=== PATIENT | female | born 1940 | race African-American/Black ===

== ENCOUNTER 2017-12-22 09:25 | Inpatient (IN) | payer OTHER ==
[2017-12-22 10:03] LABS: Absolute Lymphocytes (CBC) 1.9 K/uL (0.7-4.9); Absolute Monocytes 0.7 K/uL (0.1-1.3); Absolute Neutrophil 8.5 K/uL (1.8-8.0); Basophils % 0.4 % (0-1.3); Eosinophils % 0.1 % (0-4.4); Hematocrit 35.8 % (36.0-45.0); Lymphocytes % 16.7 % (15.3-44.8); MCH 32.7 pg (27.0-35.0); MCV 106.3 fL (80-100); MPV 9.7 fL (7.6-11.3); Monocytes % 6.4 % (3.3-12.3); RBC Red Blood Cell Count 3.36 M/uL (3.86-4.86)
[2017-12-22 10:06] LABS: Protime INR 1.1
[2017-12-22] MEDS ORDERED: ONDANSETRON 4 MG/2 ML VIAL ONE (10:14)
[2017-12-22] MEDS ORDERED: D5 0.45 NS 1,000 ML IV ONE (10:14)
--- NOTE | 2017-12-22 10:22 | RAD REPORT ---
EXAM DESCRIPTION: [place] Single View12/22/2017 10:11 am CLINICAL HISTORY: Chest pain COMPARISON: February 2017 FINDINGS: The lungs appear clear of acute infiltrate. The heart is mildly enlarged IMPRESSION: No acute abnormalities displayed
[2017-12-22 10:27] LABS: Potassium 4.2 mEq/L (3.6-5.0)
[2017-12-22 10:30] LABS: Albumin 2.6 g/dL (3.2-5.5); Bilirubin Direct 0.2 mg/dL (0-0.2); Bilirubin Total 0.5 mg/dL (0.3-1.2); Protein, Total 5.8 g/dL (6.0-8.3)
[2017-12-22 10:35] LABS: Magnesium 1.2 mg/dL (1.8-2.5)
[2017-12-22 10:42] LABS: Anisocytosis 1+; Blood Morphology Comment NOTED (NOT SEEN); Macrocytosis 1+; Platelet Estimate ADEQ; Urine White Blood Cell Casts OK
--- NOTE | 2017-12-22 10:42 | RAD REPORT ---
EXAM DESCRIPTION: CT - Head Brain Wo Cont - 12/22/2017 10:35 am CLINICAL HISTORY: Altered consciousness, hypoglycemia COMPARISON: 06/23/2010 TECHNIQUE: All CT scans are performed using dose optimization technique as appropriate and may inclu de automated exposure control or mA/KV adjustment according to patient size. FINDINGS: No intracranial hemorrhage, hydrocephalus or extra-axial fluid collection.Prominent brain atrophy is seen at greatest in the frontal lobes.No areas of brain edema or evidence of midline shift . The paranasal sinuses and mastoids are clear. The calvarium is intact. IMPRESSION: No acute intracranial abnormality. Prominent frontal lobe atrophy.
--- NOTE | 2017-12-22 10:55 | ER ---
Nurse's Notes [facility] Name: Yanelis Hodge Age: 77 yrs Sex: Female : 1940 Arrival Date: 12/22/2017 Time: 09:36 Bed 2 Private MD: Diagnosis: Weakness;Altered mental status, unspecified;Hypoglycemia, unspecified;Hypomagnesemia;Metabolic acidemia, unspecified Presentation: 12/22 09:18 Presenting complaint: EMS states: family unable to wake up pt. Pt has had this episode sv before where she had low BS. EMS got BS and it said low, 1 amp of D50 given, BS-170 after. BS at 0917 was 76 and not responding, 1 amp of D50 given. Transition of care: patient was not received from another setting of care. Onset of symptoms was December 22, 2017. Care prior to arrival: IV initiated. 20 GA, in the left hand. 09:18 Method Of Arrival: EMS: [facility] sv 09:18 Acuity: SAM 2 sv 09:30 Presenting complaint: Child states: that she did not eat yesterday. Daughter stated sv that sometimes she gets like that and doesn't eat. Triage Assessment: 09:20 General: Appears in no apparent distress. uncomfortable, obese, Behavior is sv cooperative. Pain: Denies pain. EENT: No signs and/or symptoms were reported regarding the EENT system. Neuro: Level of Consciousness is obeys commands, lethargic, Oriented to person, Moves all extremities. Cardiovascular: Heart tones S1 S2 present Patient's skin is warm and dry. Pulses are 3+ in right radial artery and left radial artery Rhythm is sinus tachycardia. Respiratory: Airway is patent Respiratory effort is even, unlabored, Respiratory pattern is regular, symmetrical. GI: Abdomen is obese, Abd is soft and non tender X 4 quads. Derm: Skin is normal. Musculoskeletal: Range of motion: intact in all extremities. Historical: - Allergies: 10: No Known Allergies; sv - Home Meds: 10:01 metoprolol tartrate 50 mg Oral tab 1 tab 2 times per day [Active]; gabapentin 100 mg sv oral cap twice a day [Active]; Norvasc 2.5 mg Oral tab 1 tab twice daily [Active]; risedronate 35 mg oral tab 1 tab once wkly [Active]; prednisone 10 mg Oral tab once daily [Active]; Prozac 20 mg Oral cap 1 cap once daily [Active]; Prilosec 20 mg Oral cpDR 1 cap once daily [Active]; Spiriva with HandiHaler 18 mcg inhalation CpDv 1 cap once daily [Active]; - PMHx: 10:01 Hypertension; Rheumatoid Arthritis; sv - Immunization history:: Adult Immunizations up to date. - Social history:: Smoking status: Patient/guardian denies using tobacco. Screenin:20 Abuse screen: Denies threats or abuse. Denies injuries from another. Nutritional sv screening: No deficits noted. Tuberculosis screening: No symptoms or risk factors identified. Fall Risk None identified. Assessment: :18 Reassessment: See triage assessment. sv 10:18 Reassessment: Patient appears in no apparent distress at this time. Patient and/or sv family updated on plan of care and expected duration. Pain level reassessed. Patient is alert, oriented x 3, equal unlabored respirations, skin warm/dry/pink. 11:37 Reassessment: Patient appears in no apparent distress at this time. Patient and/or sv family updated on plan of care and expected duration. Pain level reassessed. Patient is alert, oriented x 3, equal unlabored respirations, skin warm/dry/pink. 12:55 Reassessment: Patient appears in no apparent distress at this time. Patient and/or sv family updated on plan of care and expected duration. Pain level reassessed. Patient is alert, oriented x 3, equal unlabored respirations, skin warm/dry/pink. 13:23 Reassessment: Nurse to call back for report. sv 13:24 Reassessment: Patient appears in no apparent distress at this time. Patient and/or sv family updated on plan of care and expected duration. Pain level reassessed. Patient is alert, oriented x 3, equal unlabored respirations, skin warm/dry/pink. Vital Signs: 09:18 BP 128 / 84; Pulse 101; Resp 18; Temp 96; Pulse Ox 100% ; Pain 0/10; sv 10:20 BP 148 / 65; Pulse 104; Resp 20; Pulse Ox 100% on R/A; sv 12:54 BP 150 / 82; Pulse 105 MON; Resp 17; Pulse Ox 100% on R/A; sv 12:54 Sinus tachycardia sv ED Course: :18 Maintain EMS IV. Dressing intact. Site clean \T\ dry. Gauge \T\ site: 20G L hand. sv 09:20 Patient has correct armband on for positive identification. Bed in low position. Call sv light in reach. Side rails up X2. radio antenna installer on. Pulse ox on. NIBP on. Door closed. Warm blanket given. Head of bed elevated. 09:30 Arm band placed on right wrist. sv 09:36 Patient arrived in ED. sv 09:40 Initial lab(s) drawn, by me, sent to lab. Inserted saline lock: 20 gauge in right sv forearm, using aseptic technique. Blood collected. Flushed right forearm with 5 ml normal saline. 09:43 Sherwin Miller MD is Attending Physician. óscar 09:44 Christel Lyon, MARY GRACE is Primary Nurse. sv 09:47 Triage completed. sv 09:52 EKG done, by regulatory and compliance technician. reviewed by Sherwin Miller MD. at1 09:55 X-ray completed. Portable x-ray completed in exam room. Patient tolerated procedure jb2 well. 09:56 XRAY Chest (1 view) In Process Unspecified. EDMS 10:12 CBC Smear Scan Sent. sv 10:18 Awaiting ED provider evaluation. sv 10:29 CT completed. Patient tolerated procedure well. Patient moved to CT via stretcher. jg1 10:35 CT Head Brain wo Cont In Process Unspecified. EDMS 10:53 Sg Levy MD is Hospitalizing Provider. óscar 11:21 No provider procedures requiring assistance completed. Chiagn cath inserted, using tw2 sterile technique, 16 Fr., by ma, balloon inflated, to gravity drainage, urine specimen collected. returned cloudy urine. Patient tolerated well. 12:24 Urine collected: Chiang catheter specimen, clear. mh5 12:56 Urine Dipstick--Ancillary (enter results) Sent. sv 13:10 Patient admitted, IV remains in place. intact. sv Administered Medications: Discontinued: D5-1/2 NS 1000 ml IV at 100 ml/hr continuous 09:55 Drug: D5-1/2 NS 1000 ml Route: IV; Rate: 100 ml/hr; Site: right forearm; sv 12:55 Follow up: Response: No adverse reaction; IV Status: Order to discontinue infusion sv 09:55 Drug: Zofran 4 mg Route: IVP; Site: right forearm; sv 10:23 Follow up: Response: No adverse reaction sv 11:37 Drug: Magnesium Sulfate 1 grams Route: IVPB; Infused Over: 1 hrs; Site: right forearm; sv 12:35 Follow up: Response: No adverse reaction; IV Status: Completed infusion; IV Intake: sv 100ml 11:37 Drug: NS 0.9% 500 ml Route: IV; Rate: bolus; Site: right forearm; sv 12:15 Follow up: Response: No adverse reaction; IV Status: Completed infusion; IV Intake: sv 500ml 12:08 CANCELLED (Duplicate Order): Rocephin - (cefTRIAXone) 1 grams IVPB once over 30 mins; sv (mix in 50 mL NS) 12:55 Drug: D5W 1000 ml, Sodium Bicarbonate 150 mEq Route: IV; Rate: 75 ml/hr; Site: right sv forearm; 14:11 Follow up: Response: No adverse reaction; IV Status: Infusion continued upon admission sv 12:55 Drug: Rocephin 1 grams Route: IV; Rate: calculated rate; Site: right forearm; sv 13:00 Follow up: Response: No adverse reaction; IV Status: Completed infusion; IV Intake: 10mlsv 12:55 Drug: D50W 50 ml Route: IVP; Site: right forearm; sv 13:10 Follow up: Response: No adverse reaction; Blood sugar is elevated sv Point of Care Testing: Blood Glucose: 09:26 Blood Glucose: 149 mg/dL; sv 10:08 Blood Glucose: 119 mg/dL; tw2 12:52 Blood Glucose: 44 mg/dL; sv 13:10 Blood Glucose: 150 mg/dL; sv Ranges: Intake: 12:15 IV: 500ml; Total: 500ml. sv 12:35 IV: 100ml; Total: 600ml. sv 13:00 IV: 10ml; Total: 610ml. sv Outcome: 10:54 Decision to Hospitalize by Provider. óscar 13:32 Admitted to Tele accompanied by tech, via stretcher, room 232, with chart, Report sv called to Guera BRODY 13:32 Condition: stable 13:32 Instructed on the need for admit. 13:51 Patient left the ED. sv Signatures: Dispatcher [employer] Christel Styles RN RN sv Anderson, Corey, MD MD cha Buechter, Jesse jb2 Garcia, Jessica jg1 gonzales, Marisol, apn EKG Tat1 Jennifer Strong, RN RN tw2 Melissa Matute [facility] Corrections: (The following items were deleted from the chart) 10:18 Reassessment: See triage assessment. [facility] 11:22 PMHx: DM; tw2
--- NOTE | 2017-12-22 10:55 | EDPHYS ---
Physician Documentation [facility] Name: Yanelis Hodge Age: 77 yrs Sex: Female : 1940 Arrival Date: 12/22/2017 Time: 09:36 Bed 2 Private MD: ED Physician Sherwin Miller HPI: 12/22 10:51 This 77 yrs old Black Female presents to ER via EMS with complaints of Low Blood Sugar. óscar 10:51 The patient or guardian reports hypoglycemia. Onset: The symptoms/episode óscar began/occurred just prior to arrival, this morning. Associated signs and symptoms: Pertinent positives: nausea. Current symptoms: In the emergency department the patient's symptoms are unchanged from the initial presentation. The patient has not experienced similar symptoms in the past. Historical: - Allergies: 10: No Known Allergies; sv - Home Meds: 10:01 metoprolol tartrate 50 mg Oral tab 1 tab 2 times per day [Active]; gabapentin 100 mg sv oral cap twice a day [Active]; Norvasc 2.5 mg Oral tab 1 tab twice daily [Active]; risedronate 35 mg oral tab 1 tab once wkly [Active]; prednisone 10 mg Oral tab once daily [Active]; Prozac 20 mg Oral cap 1 cap once daily [Active]; Prilosec 20 mg Oral cpDR 1 cap once daily [Active]; Spiriva with HandiHaler 18 mcg inhalation CpDv 1 cap once daily [Active]; - PMHx: 10:01 Hypertension; Rheumatoid Arthritis; sv - Immunization history:: Adult Immunizations up to date. - Social history:: Smoking status: Patient/guardian denies using tobacco. ROS: 10:52 Constitutional: Negative for fever, chills, and weight loss, Eyes: Negative for injury, óscar pain, redness, and discharge, ENT: Negative for injury, pain, and discharge, Neck: Negative for injury, pain, and swelling, Cardiovascular: Negative for chest pain, palpitations, and edema, Respiratory: Negative for shortness of breath, cough, wheezing, and pleuritic chest pain, Abdomen/GI: Negative for abdominal pain, nausea, vomiting, diarrhea, and constipation, Back: Negative for injury and pain, : Negative for injury, bleeding, discharge, and swelling, MS/Extremity: Negative for injury and deformity, Skin: Negative for injury, rash, and discoloration, Psych: Negative for depression, anxiety, suicide ideation, homicidal ideation, and hallucinations, Allergy/Immunology: Negative for hives, rash, and allergies, Endocrine: Negative for neck swelling, polydipsia, polyuria, polyphagia, and marked weight changes, Hematologic/Lymphatic: Negative for swollen nodes, abnormal bleeding, and unusual bruising. 10:52 Neuro: Positive for altered mental status, weakness. Exam: 10:52 Constitutional: This is a well developed, well nourished patient who is awake, alert, óscar and in no acute distress. Head/Face: Normocephalic, atraumatic. Eyes: Pupils equal round and reactive to light, extra-ocular motions intact. Lids and lashes normal. Conjunctiva and sclera are non-icteric and not injected. Cornea within normal limits. Periorbital areas with no swelling, redness, or edema. ENT: Nares patent. No nasal discharge, no septal abnormalities noted. Tympanic membranes are normal and external auditory canals are clear. Oropharynx with no redness, swelling, or masses, exudates, or evidence of obstruction, uvula midline. Mucous membranes moist. Neck: Trachea midline, no thyromegaly or masses palpated, and no cervical lymphadenopathy. Supple, full range of motion without nuchal rigidity, or vertebral point tenderness. No Meningismus. Chest/axilla: Normal chest wall appearance and motion. Nontender with no deformity. No lesions are appreciated. Cardiovascular: Regular rate and rhythm with a normal S1 and S2. No gallops, murmurs, or rubs. Normal PMI, no JVD. No pulse deficits. Respiratory: Lungs have equal breath sounds bilaterally, clear to auscultation and percussion. No rales, rhonchi or wheezes noted. No increased work of breathing, no retractions or nasal flaring. Abdomen/GI: Soft, non-tender, with normal bowel sounds. No distension or tympany. No guarding or rebound. No evidence of tenderness throughout. Back: No spinal tenderness. No costovertebral tenderness. Full range of motion. Female : Normal external genitalia. Skin: Warm, dry with normal turgor. Normal color with no rashes, no lesions, and no evidence of cellulitis. MS/ Extremity: Pulses equal, no cyanosis. Neurovascular intact. Full, normal range of motion. Psych: Awake, alert, with orientation to person, place and time. Behavior, mood, and affect are within normal limits. 10:52 Neuro: Orientation: to person, place, time, Not oriented to situation, Mentation: slow to respond, Memory: immediate memory is impaired, remote memory is intact. recent memory is impaired, Cranial nerves: no acute changes, Cerebellar function: unable to test, Motor: moves all fours, Sensation: no obvious gross deficits, appropriate no acute changes, Gait: not tested. Babinski testing is normal. Vital Signs: 09:18 BP 128 / 84; Pulse 101; Resp 18; Temp 96; Pulse Ox 100% ; Pain 0/10; sv 10:20 BP 148 / 65; Pulse 104; Resp 20; Pulse Ox 100% on R/A; sv 12:54 BP 150 / 82; Pulse 105 MON; Resp 17; Pulse Ox 100% on R/A; sv 12:54 Sinus tachycardia sv MDM: 09:43 Patient medically screened. [facility] 10:59 Data reviewed: vital signs, nurses notes, lab test result(s), EKG, radiologic studies, [facility] CT scan, plain films. 12/22 09:44 Order name: Basic Metabolic Panel; Complete Time: 10:48 sv 12/22 09:44 Order name: BNP; Complete Time: 10:48 sv 12/22 09:44 Order name: CBC with Diff; Complete Time: 10:48 sv 12/22 09:44 Order name: Ckmb; Complete Time: 10:48 sv 12/22 09:44 Order name: CPK; Complete Time: 10:48 sv 12/22 09:44 Order name: LFT's; Complete Time: 10:48 sv 12/22 09:44 Order name: Magnesium; Complete Time: 10:48 sv 12/22 09:44 Order name: PT-INR; Complete Time: 10:48 sv 12/22 09:44 Order name: Ptt, Activated; Complete Time: 10:48 sv 12/22 09:44 Order name: Troponin (emerg Dept Use Only); Complete Time: 10:48 sv 12/22 09:45 Order name: Lipase; Complete Time: 10:48 [facility] 12/22 10:11 Order name: glucometer results - FOR PT WITH NO ID sv 12/22 10:11 Order name: CBC Smear Scan; Complete Time: 10:48 EDMS 03/06 10:48 Order name: ABG; Complete Time: 11:52 óscar 12/22 10:59 Order name: Basic Metabolic Panel EDMS 12/22 10:59 Order name: Basic Metabolic Panel EDMS 12/22 10:59 Order name: Troponin I EDMS 12/22 10:59 Order name: Troponin I EDMS 12/22 10:59 Order name: Troponin I EDMS 12/22 11:02 Order name: CBC with Automated Diff EDMS 12/22 09:44 Order name: XRAY Chest (1 view); Complete Time: 10:48 óscar 12/22 09:44 Order name: EKG; Complete Time: 09:45 óscar 12/22 10:25 Order name: CT Head Brain wo Cont; Complete Time: 10:48 sv 12/22 11:02 Order name: Regular EDMS 12/22 11:02 Order name: CBC with Automated Diff EDMS 12/22 11:02 Order name: Chest Single View EDMS 12/22 11:02 Order name: Chest Single View EDMS 12/22 11:02 Order name: EKG Electrocardiogram EDMS 12/22 11:02 Order name: EKG Electrocardiogram EDMS 12/22 11:02 Order name: EKG Electrocardiogram EDMS 12/22 11:02 Order name: EKG Electrocardiogram EDMS 12/22 11:59 Order name: Blood Culture Adult (2) [facility] 12/22 12:23 Order name: Urine Dipstick--Ancillary (enter results) 12/22 12:37 Order name: Urine Dipstick-Ancillary EDMS 12/22 12:53 Order name: Glucose, Ancillary Testing EDLA 12/22 12:53 Order name: Glucose, Ancillary Testing EDMS 12/22 09:44 Order name: Cardiac monitoring; Complete Time: 10:14 óscar 12/22 09:44 Order name: EKG - Nurse/Tech; Complete Time: 10:14 óscar 12/22 09:44 Order name: IV Saline Lock; Complete Time: 10:15 óscar 12/22 09:44 Order name: Labs collected and sent; Complete Time: 10:15 óscar 12/22 09:44 Order name: O2 Per Protocol; Complete Time: 10:15 óscar 12/22 09:44 Order name: O2 Sat Monitoring; Complete Time: 10:15 óscar 12/22 09:44 Order name: Urine Dipstick-Ancillary (obtain specimen); Complete Time: 10:15 óscar 12/22 10:49 Order name: Андрей; Complete Time: 11:20 [facility] Administered Medications: Discontinued: D5-1/2 NS 1000 ml IV at 100 ml/hr continuous 09:55 Drug: D5-1/2 NS 1000 ml Route: IV; Rate: 100 ml/hr; Site: right forearm; sv 12:55 Follow up: Response: No adverse reaction; IV Status: Order to discontinue infusion sv 09:55 Drug: Zofran 4 mg Route: IVP; Site: right forearm; sv 10:23 Follow up: Response: No adverse reaction sv 11:37 Drug: Magnesium Sulfate 1 grams Route: IVPB; Infused Over: 1 hrs; Site: right forearm; sv 12:35 Follow up: Response: No adverse reaction; IV Status: Completed infusion; IV Intake: sv 100ml 11:37 Drug: NS 0.9% 500 ml Route: IV; Rate: bolus; Site: right forearm; sv 12:15 Follow up: Response: No adverse reaction; IV Status: Completed infusion; IV Intake: sv 500ml 12:08 CANCELLED (Duplicate Order): Rocephin - (cefTRIAXone) 1 grams IVPB once over 30 mins; sv (mix in 50 mL NS) 12:55 Drug: D5W 1000 ml, Sodium Bicarbonate 150 mEq Route: IV; Rate: 75 ml/hr; Site: right sv forearm; 14:11 Follow up: Response: No adverse reaction; IV Status: Infusion continued upon admission sv 12:55 Drug: Rocephin 1 grams Route: IV; Rate: calculated rate; Site: right forearm; sv 13:00 Follow up: Response: No adverse reaction; IV Status: Completed infusion; IV Intake: 10mlsv 12:55 Drug: D50W 50 ml Route: IVP; Site: right forearm; sv 13:10 Follow up: Response: No adverse reaction; Blood sugar is elevated sv Point of Care Testing: Blood Glucose: 09:26 Blood Glucose: 149 mg/dL; sv 10:08 Blood Glucose: 119 mg/dL; tw2 12:52 Blood Glucose: 44 mg/dL; sv 13:10 Blood Glucose: 150 mg/dL; sv Ranges: Critical Glucose Levels:Adult <50 mg/dl or >400 mg/dl <40 mg/dl or >180 mg/dl Disposition: 12/22/17 10:54 Hospitalization ordered by Sg Levy for Inpatient Admission. Preliminary diagnosis are Weakness, Altered mental status, unspecified, Hypoglycemia, unspecified, Hypomagnesemia, Metabolic acidemia, unspecified. - Bed requested for Telemetry/MedSurg (Inpatient). - Status is Inpatient Admission. sv - Condition is Fair. - Problem is new. - Symptoms have improved. UTI on Admission? No Signatures: Dispatcher [employer] EDLA Christel Lyon RN RN sv Woody, Diana, RN RN dw Anderson, Corey, MD MD cha Wise, Tara, RN RN tw2 Corrections: (The following items were deleted from the chart) 09:47 09:45 BASIC METABOLIC PANEL+C.LAB.BRZ ordered. EDLA EDMS 09:47 09:45 BNP+C.LAB.BRZ ordered. EDLA EDMS 09:47 09:45 CBC+H.LAB.BRZ ordered. EDLA EDMS 09:47 09:45 CKMB+C.LAB.BRZ ordered. EDLA EDMS 09:47 09:45 CREATINE PHOSPHOKINASE+C.LAB.BRZ ordered. EDLA EDMS 09:47 09:45 HEPATIC FUNCTION+C.LAB.BRZ ordered. EDLA EDMS 09:47 09:45 MAGNESIUM+C.LAB.BRZ ordered. EDLA EDMS 09:47 09:45 PROTIME (+INR)+COAG.LAB.BRZ ordered. EDLA EDMS 09:47 09:45 PTT, ACTIVATED+COAG.LAB.BRZ ordered. EDLA EDMS 09:47 09:45 TROPONIN (EMERG DEPT USE ONLY)+C.LAB.BRZ ordered. EDLA EDMS 09:56 09:45 Chest Single View+RAD.RAD.BRZ ordered. EDLA EDMS 10:12 09:44 Cardiac monitoring ordered. sv sv 10:12 09:44 Urine Dipstick-Ancillary ordered. sv sv 10:13 09:44 Labs collected and sent ordered. sv sv 10:13 09:44 Oxygen Per Protocol ordered. sv sv 10:13 09:44 O2 Sat Monitoring ordered. sv sv 10:14 09:44 EKG - Nurse/Tech ordered. sv sv 10:14 09:44 IV Saline Lock ordered. sv sv 12:08 11:59 Rocephin - (cefTRIAXone) 1 grams IVPB once over 30 mins; (mix in 50 mL NS) sv ordered. [facility] 13:28 11:22 PMHx: DM; tw2 sv
[2017-12-22] MEDS ORDERED: ONDANSETRON 4 MG/2 ML VIAL IV PRN (10:56)
[2017-12-22] MEDS ORDERED: ACETAMINOPHEN 500 MG TAB PO PRN (10:56)
[2017-12-22] MEDS ORDERED: D5 0.45 NS 1,000 ML IV SCH (11:00)
[2017-12-22] MEDS ORDERED: NA CHLORIDE 0.9% 500 ML ONE (11:35)
[2017-12-22] MEDS ORDERED: MAGNESIUM SULFATE 1 gm IVPB 1 GM/100 ML BAG IV ONE (11:35)
[2017-12-22 11:48] LABS: Arterial Blood Carboxyhemoglob 0.5 % (0-1.5); Blood Gas Oxyhemoglobin 90.7 % (94-97); Blood O2 Saturation 91.6 % (92-98.5)
[2017-12-22] MEDS ORDERED: CEFTRIAXONE/SWI 1gm 1 GM/10 ML SYR ONE (12:29)
[2017-12-22] MEDS: D5W 1,000 ML with NA BICARB 8.4% 150 MEQ IV SCH ×2 (12:30)
[2017-12-22 12:36] LABS: Urine Blood NEGATIVE (NEG); Urine Glucose NEGATIVE (NEG); Urine Protein NEGATIVE (NEG); Urine pH 5.5 (5.0-7.0)
[2017-12-22] MEDS ORDERED: D50W 25 GM/50 ML SYRINGE IV ONE (13:09)
--- NOTE | 2017-12-22 13:51 | EKG ---
Test Date: 2017-12-22 Test Time: 09:38:38 Computer Service Technician: ED MEASUREMENT RESULTS: Intervals: Rate: 99 IL: 176 QRSD: 74 QT: 380 QTc: 487 [place]: P: 69 IL: 176 QRS: 14 T: 31 INTERPRETIVE STATEMENTS: Normal sinus rhythm Normal ECG Compared to ECG 03/06/2017 06:34:37 Left ventricular hypertrophy no longer present Electronically Signed On 12-22-17 13:50:01 MASKING MACHINE FEEDER by Rishabh Vasquez
[2017-12-22] MEDS ORDERED: D5W 1,000 ML with NA BICARB 8.4% 150 MEQ IV SCH ×2 (17:00)
[2017-12-22 18:23] LABS: Magnesium 1.3 mg/dL (1.8-2.5)
[2017-12-22] MEDS ORDERED: Magnesium Sulfate 2gm IVPB 2 G/50 ML BAG IV ONE (19:00)
[2017-12-22 19:39] LABS: UR CREAT 55.2 mg/dL; UR POTASSIUM 12.3 mEq/L (25-120)
[2017-12-22 20:15] VITALS: BMI 38.4
--- NOTE | 2017-12-22 20:44 | RAD REPORT ---
EXAM DESCRIPTION: US - Renal Ultrasound-Complete - 12/22/2017 8:33 pm CLINICAL HISTORY: Metabolic acidosis COMPARISON: 06/11/2012 FINDINGS: Both kidneys are normal in size, shape and echotexture. The right kidney measures 9.2 x 3.8 x 3.4 cm. No hydronephrosis, focal mass or perinephric fluid. The left kidney measures 9.5 x 3.8 x 3.7 cm. No hydronephrosis, focal mass or perinephric fluid. IMPRESSION: Unremarkable renal sonogram.
[2017-12-22] MEDS: MAGNESIUM OXIDE 400 MG TAB PO SCH (21:29)
[2017-12-22] MEDS ORDERED: GABAPENTIN 100 MG CAP PO PRN (22:12)
[2017-12-22] MEDS ORDERED: METOPROLOL XL 50 MG TAB PO ONE (22:14)
[2017-12-23] MEDS: D5W 1,000 ML with NA BICARB 8.4% 150 MEQ IV SCH ×2 (00:57)
[2017-12-23] MEDS: PANTOPRAZOLE 40MG TABLET PO SCH (05:04)
--- NOTE | 2017-12-23 05:25 | HP ---
Date of Admission: 12/22/2017 Chief Complaint: Confusion and low blood sugar. History Of Present Illness: This is a 77-year-old female patient, who lives at home with her olvin elias, was brought into emergency room with confusion problem. The patient's blood sugar was low as repo rted by EMS and this was corrected. After she arrived to the emergency room, she was evaluated and a dmitted to hospital. As I was told from ER, her blood sugar by EMS was around 54 or so. When I saw her this evening, she denied any complaints. She says yesterday she had diarrhea about 4 or 5 times and once today. Denies any vomiting. No fever, chills. No abdominal pain. Allergies: NO KNOWN ALLERGIES. Review of Systems: Musculoskeletal: Has arthritis. GI: As mentioned above for diarrhea. SIX PACK PACKER: As mentioned above. All other systems reviewed and negative. Social History: Negative for smoking and alcohol use. Family History: Sister of brain tumor. Mother of breast cancer. Mother also had diabetes and father of jaundice. Past Surgical History: Cholecystectomy, partial amputation of right hand finger. Past Medical History: Hypertension, osteoarthritis, rheumatoid arthritis, hyperlipidemia, anemia, ga stroesophageal reflux disease, osteoarthritis at multiple sites, depression, fatigue, and pulmonary h ypertension. Medications: The patient takes amlodipine 2.5 mg 2 times a day, Caltrate plus D 1 tablet twice a day , fluoxetine 20 mg daily, gabapentin 100 mg twice a day, hemocyte Plus 1 tablet daily, omeprazole 20 mg daily, metoprolol 50 mg 2 times a day, prednisone 10 mg p.o. daily, ProAir inhaler p.r.n., risedro janet 35 mg p.o. once a week, and vitamin D3 2000 units daily. Physical Examination: Vital Signs: When she first came in, blood pressure 148/65, pulse 104, respiratory rate 20, temperat ure 98.9, oxygen saturation 100%. Height 5 feet 3 inches. Weight 216 pounds. General: Awake, alert, oriented, not in distress. HEENT: Head atraumatic, normocephalic. Conjunctivae nonerythematous. Sclerae white. Mouth, no thr ush or edema noted. Ears/Nose, no mass, lesion, discharge noted. Neck: Supple. No JVD, lymph nodes, bruit, thyromegaly noted. Lungs: Bilateral good equal air entry. Clear to auscultation. No rhonchi. No rales. Heart: Normal heart sounds, no murmur or gallop. Abdomen: Soft, bowel sounds normal. No guarding, rigidity, tenderness, mass, hepatosplenomegaly, dis tention, or bruit noted. Extremities: Has chronic deformity of her hands due to her rheumatoid arthritis problem. Skin: No rash, ulcer, cellulitis. Lymphatics: No lymph node enlargement in neck, supraclavicular, infraclavicular region. Neuro: No focal neurological deficit. Chest: Unremarkable. External Genitalia: Deferred. Rectal: Deferred. Laboratory Data: White count 11.1, hemoglobin 11, platelets 242. INR 1.10. PH 7.21, pCO2 37.7, pO2 83.9, saturation 91.6% on room air. Sodium 141, potassium 4.2, chloride 111, bicarb 14, BUN 21, cre atinine 1.47, glucose 158, magnesium 1.2, SGOT 95, SGPT 35. Troponin less than 0.03. BNP 44. Lipas e 10. CAT scan of the head was negative for any acute intracranial changes, prominent frontal lobe a trophy present. Electrocardiogram, normal sinus rhythm, normal EKG. Chest x-ray, no acute cardiopul monary changes noted. Renal ultrasound, unremarkable renal ultrasound. Impression: 1.Hypoglycemia. 2.Metabolic acidosis. 3.Altered mental status. 4.Hypomagnesemia. 5.Anemia. 6.Hypertension. 7.Rheumatoid arthritis. 8.Chronic steroid therapy. 9.Hypertension. 10.Osteoarthritis, multiple sites. 11.Hyperlipidemia. 12.Gastroesophageal reflux disease. 13.Depression. 14.Fatigue. 15.Pulmonary hypertension. Plan: We will go ahead and admit the patient to hospital for further evaluation and management of th is problem. The patient is appropriate for inpatient and is expected to spend 2 midnights in the [facility]. The patient does not appear septic. She has had prior episode of hypoglycemia and metabolic acidosis problem. We will consult tub wash operator. The patient is currently on IV fluid with bicarb. We will continue that monitor fingerstick blood sugar every hour, inform nursing staff to discontinue IV fluid if her blood sugar gets higher than 200. If blood sugar is less than 80 then 1 amp of D50 should be given as per my discussion with the nursing staff during day today. Home medications will be continued per order and I will see her tomorrow for followup. Details and plan of treatment discu ssed with her. SALO/JILL Voice ID: [id number]
[2017-12-23 05:55] LABS: Absolute Monocytes 0.8 K/uL (0.1-1.3); Absolute Neutrophil 3.8 K/uL (1.8-8.0); Basophils % 0.3 % (0-1.3); Eosinophils % 0.5 % (0-4.4); Lymphocytes % 29.9 % (15.3-44.8); MCH 33.6 pg (27.0-35.0); MCV 98.1 fL (80-100); MPV 9.3 fL (7.6-11.3); Monocytes % 12.2 % (3.3-12.3); RBC Red Blood Cell Count 2.96 M/uL (3.86-4.86)
[2017-12-23 06:05] LABS: Magnesium 1.9 mg/dL (1.8-2.5); Potassium 3.8 mEq/L (3.6-5.0)
[2017-12-23] MEDS ORDERED: POTASSIUM CHLORIDE PO ONE (06:10)
--- NOTE | 2017-12-23 07:38 | RAD REPORT ---
EXAM DESCRIPTION: RAD - Chest Single View - 12/23/2017 6:17 am CLINICAL HISTORY: Chest pain COMPARISON: December 22 TECHNIQUE: AP portable chest image was obtained 0558 hours . FINDINGS: No new mass, consolidation or acute failure finding. Lung markings are similar to comparis on. Heart and vasculature are normal. No measurable pleural effusion and no pneumothorax. No gross matt ny abnormality seen. No acute aortic findings suspected. IMPRESSION: No acute cardiopulmonary process. No new or progressive finding from prior day study.
--- NOTE | 2017-12-23 07:53 | EKG ---
Test Date: 2017-12-23 Test Time: 06:55:39 Recreation Clerk: ED MEASUREMENT RESULTS: Intervals: Rate: 90 TX: QRSD: 80 QT: 410 QTc: 501 [place]: P: 60 TX: QRS: 27 T: 45 INTERPRETIVE STATEMENTS: Sinus rhythm occasional PACs Prolonged QT Abnormal ECG Compared to ECG 12/22/2017 09:38:38 premature atrial complexes are now present Electronically Signed On 12-23-17 07:53:10 TUNGSTEN REFINER by Aristides Valentine
[2017-12-23] MEDS: D5 0.9 NS 1,000 ML IV SCH (08:39)
[2017-12-23] MEDS: ENOXAPARIN 40 MG/0.4 ML SQ SCH (08:39)
[2017-12-23] MEDS: MAGNESIUM OXIDE 400 MG TAB PO SCH ×2 (08:39→20:33)
[2017-12-23] MEDS: predniSONE 10 MG TAB PO SCH (08:39)
[2017-12-23] MEDS: METOPROLOL TAR 50 MG TAB PO SCH ×2 (08:40→20:33)
[2017-12-23] MEDS ORDERED: AMLODIPINE 2.5 MG TAB PO SCH (09:00)
[2017-12-23 09:22] LABS: Blood Morphology Comment NOT SEEN (NOT SEEN); Platelet Estimate ADEQ; Urine White Blood Cell Casts OK
[2017-12-23] MEDS ORDERED: cloNIDine HCl 0.1 MG TAB PO PRN (17:01)
--- NOTE | 2017-12-23 23:54 | PN ---
Date of Progress Note: 12/23/2017 Subjective: The patient was seen this morning for followup, lying in bed, not in any distress. No n ew complaints or problems reported by her. Objective: Vital Signs: Reviewed. HEENT: Unremarkable. Lungs: Clear to auscultation. Heart: Heart sounds normal. Abdomen: Soft. Bowel sounds normal. No guarding, rigidity, tenderness, or distention. Extremities: No leg edema. Laboratory Data: White count 6.6, hemoglobin 9.9, platelets 168. Sodium 140, potassium 3.8, chlorid e 102, bicarb 30, BUN 15, creatinine 1.08, glucose 92, magnesium 1.9. Impression: 1.Metabolic acidosis. 2.Hypoglycemia. 3.Hypertension. 4.Anemia. Plan: The patient's metabolic acidosis problem has resolved. Hypoglycemia problem has resolved. Bee comer is on IV fluid D5 with bicarb drip which was discontinued this morning and we will change it to D5 normal saline at 50 cc/hour. Fingerstick blood sugar readings reviewed and instead of every hour we will change it to every 2 hours. Give 1 amp of D50 for sugar less than 80, and once sugar is more th an 200, then discontinue IV fluid. Continue to follow with hand cell tuber. Anemia is stable. During the course of day today, her blood pressure had gone up and p.r.n. use of clonidine was ordered. We will continue other antihypertensive medications. I will see her tomorrow for followup. SALO/MODL Voice ID: [id number] Report ID: [id number]
--- NOTE | 2017-12-24 01:00 | CON ---
Date of Consultation: 12/23/2017 Consulting Physician: Sg Levy M.D. Reason For Consultation: Acidosis, electrolyte imbalance. History Of Present Illness: This is a 77-year-old female with significant past medical history of hy pertension, osteoarthritis, rheumatoid arthritis, hyperlipidemia, GERD, depression, pulmonary hyperte nsion. The patient was in her regular state of health, was brought because of altered mental status, found to have hypoglycemia and the primary workup showed that the patient had acidosis, non-anion ga p, for that reason, we have been consulted. Over the night, we started the patient on D5 with an amp of bicarb. Her bicarb raised from 14-30. The patient admit that she has some diarrhea for the last couple of days without any abdominal pain. No fever or chills. No nausea or vomiting. The patient denied taking any nonsteroidal. No recent change in her medication. No antibiotic. Past Medical History: Include, 1.Hypertension. 2.Osteoarthritis. 3.Gout. 4.Rheumatoid arthritis. 5.Hyperlipidemia.. 6.Pulmonary hypertension. Allergies: NO KNOWN DRUGS ALLERGY. Social History: Denies smoking, denies drinking, denies drugs abuse. Review of Systems: Head And Neck: No red eye. No ear pain. GI: Diarrhea. No nausea. No vomiting. : No polyuria. No dysuria. No hematuria. CONSTRUCTION SALES REPRESENTATIVE: No vaginal discharge. Respiratory: No shortness of breath. Cardiovascular: No chest pain. Neuro: No weakness. Musculoskeletal: Joint pain. Endocrine: No polydipsia. Skin: No rash. Past Surgical History: Include, 1.Cholecystectomy. 2.Partial amputation of the right hand finger. Physical Examination: Vital Signs: When I saw the patient, blood pressure of 154/76, pulse of 85. Afebrile. Chest: Clear to auscultation. Heart: S1, S2. Systolic murmur. Abdomen: Soft. Nontender. Extremities: Trace edema. Neurologic: Alert. Nonfocal. Laboratory Data: WBC 6.6, H and H 9.9/29 and platelet 168. On admission, sodium 141, potassium 4.2, bicarb 14, BUN 21 and creatinine 1.4. GFR of 42. Magnesium 1.2, calcium 8.2. Albumin 2.6. Today' s lab data; sodium 140, potassium 3.8, bicarb 30, chloride 102, BUN 15, creatinine 1.08, calcium 8.1, magnesium 1.9. Urinalysis; specific gravity of 1.010. Urine; sodium 47, potassium 12, chloride 36. Protein creatinine is 0.2. Anion gap in the urine is 23. CT brain was negative. Renal ultrasound , 9.2 x 9.5. Assessment And Plan: 1.Acute kidney injury secondary to prerenal normal size kidney, protein nonnephrotic recover resolve d back to close to baseline. 2.Acidosis non-anion gap, secondary to gastrointestinal loss, doubt to be RTA, giving no previous hi story and reviewing the record, did not show any acidosis before, except back in 2017 one episode. I am going to discontinue bicarb drip currently and will monitor the patient. 3.Hypomagnesemia. We will continue supplement. 4.Anemia of chronic kidney disease, mostly secondary to chronic kidney disease and chronic disease. I am going to go ahead and send for anemia workup. 5.Hypertension, uncontrolled. We will go ahead and increase her Norvasc to 10 mg and we will follow up response. Thank you, Dr. Levy for allowing us to participate in the care of your patient. KIM Voice ID: [id number] Report ID: [id number]
[2017-12-24] MEDS: D5 0.9 NS 1,000 ML IV SCH ×2 (02:03→20:36)
[2017-12-24 05:57] LABS: Albumin 2.8 g/dL (3.2-5.5); Ferritin 264.4 ng/ml (11.0-306.8); Folic Acid, (Folate) 4.8 ng/ml (>5.21); Magnesium 1.8 mg/dL (1.8-2.5); Phosphorus 2.2 mg/dL (2.5-4.3)
[2017-12-24] MEDS: PANTOPRAZOLE 40MG TABLET PO SCH (06:01)
[2017-12-24] MEDS: ENOXAPARIN 40 MG/0.4 ML SQ SCH (08:48)
[2017-12-24] MEDS: FE SULF/FA/VIT B COMP & C TAB PO SCH (08:48)
[2017-12-24] MEDS: LISINOPRIL 20 MG TAB PO SCH (08:48)
[2017-12-24] MEDS: MAGNESIUM OXIDE 400 MG TAB PO SCH ×2 (08:49→20:35)
[2017-12-24] MEDS: predniSONE 10 MG TAB PO SCH (08:49)
[2017-12-24] MEDS: AMLODIPINE 2.5 MG TAB PO SCH (08:49)
[2017-12-24] MEDS: METOPROLOL TAR 50 MG TAB PO SCH ×2 (08:49→20:35)
--- NOTE | 2017-12-24 22:53 | PN ---
Date of Progress Note: 12/24/2017 Subjective: The patient was seen this morning for followup. No new complaints or problems reported by her. Lying in bed, not in distress. Objective: Vital Signs: Reviewed. HEENT: Unremarkable. Lungs: Clear to auscultation. Heart: Sounds normal. Abdomen: Soft. Bowel sounds normal. No guarding, rigidity, tenderness, or distention. Extremities: No leg edema. Laboratory Data: Labs are reviewed. Impression: 1.Metabolic acidosis, resolved. 2.Hypoglycemia, resolved. 3.Hypertension. 4.Anemia. 5.Rheumatoid arthritis. Plan: We will continue current medications. Continue to follow with health promotion manager. Continue IV flui d. Fingerstick blood sugar readings reviewed. We will continue current antihypertensive medication. The patient's blood pressure was under better control with adjustment of medications and I will see her tomorrow for followup. Consult Physical Therapy to start ambulating the patient. Remove Chiang catheter. I will see her tomorrow for followup. SALO/MODL Voice ID: [id number] Report ID: [id number]
--- NOTE | 2017-12-24 23:37 | PN ---
Date of Progress Note: 12/24/2017 Subjective: The patient is doing better. Diarrhea has been stopped. No nausea. No vomiting. Tole rating her diet. Her blood sugar is still running on the lower side. Physical Examination: Vital Signs: When I saw the patient, blood pressure 141/74, pulse of 66, afebrile. Chest: Clear to auscultation. Heart: S1, S2. Regular. Abdomen: Soft, nontender. Extremities: Trace edema. Laboratory Data: Sodium 140, potassium 5, bicarb 30, chloride 106, creatinine 1.03, and BUN 13. Medications: The patient is on D5 at the rate of 50 per hour. Assessment And Plan: 1.Non-anion gap metabolic acidosis, secondary to gastrointestinal loss, recovered, resolved. 2.Persistent hypoglycemia given the presence of marginal hyperkalemia. I am going to go ahead and s end for cortisol level and will follow up the patient. 3.Diarrhea, status post treatment, recovered, resolved. Case was discussed with the primary nurse, discussed with the patient, verbalized understanding. KIM Voice ID: [id number] Report ID: [id number]
[2017-12-25] MEDS: D5 0.9 NS 1,000 ML IV SCH
[2017-12-25] MEDS: PANTOPRAZOLE 40MG TABLET PO SCH ×2 (05:44→05:50)
[2017-12-25] MEDS: D50W 25 GM/50 ML SYRINGE IV PRN ×2 (05:44→10:43)
[2017-12-25 05:45] LABS: Potassium 5.3 mEq/L (3.6-5.0)
[2017-12-25 05:48] LABS: Albumin 2.8 g/dL (3.2-5.5); Magnesium 1.7 mg/dL (1.8-2.5); Phosphorus 2.5 mg/dL (2.5-4.3)
[2017-12-25] MEDS ORDERED: MAGNESIUM SULFATE 1 gm IVPB 1 GM/100 ML BAG IV ONE (06:17)
[2017-12-25] MEDS ORDERED: SOD POLYSTYREN SUL 15 GM/60 ML UCUP PO ONE (07:49)
[2017-12-25] MEDS ORDERED: SODIUM CHLORIDE 0.9% 10ML INJ IV ONE (08:00)
[2017-12-25] MEDS ORDERED: COSYNTROPIN 0.25 MG VIAL IV ONE (08:00)
--- NOTE | 2017-12-25 08:33 | RAD REPORT ---
EXAM DESCRIPTION: RAD - Chest Single View - 12/25/2017 8:21 am CLINICAL HISTORY: Dyspnea, chest pain COMPARISON: December 23 TECHNIQUE: AP portable chest image was obtained 0811 hours . FINDINGS: No focal infiltrate, mass or failure finding. Lung markings are similar to comparison. Hea rt and vasculature are normal. No measurable pleural effusion and no pneumothorax. No acute bony abno rmality seen. No acute aortic findings suspected. IMPRESSION: No acute cardiopulmonary process. No significant interval change.
[2017-12-25 08:48] LABS: Absolute Lymphocytes (CBC) 2.9 K/uL (0.7-4.9); Absolute Monocytes 0.7 K/uL (0.1-1.3); Absolute Neutrophil 3.9 K/uL (1.8-8.0); Basophils % 1.1 % (0-1.3); Eosinophils % 2.4 % (0-4.4); Hematocrit 34.1 % (36.0-45.0); Lymphocytes % 37.3 % (15.3-44.8); MCH 32.5 pg (27.0-35.0); MCV 101.9 fL (80-100); MPV 10.1 fL (7.6-11.3); Monocytes % 9.1 % (3.3-12.3); RBC Red Blood Cell Count 3.35 M/uL (3.86-4.86)
[2017-12-25 09:15] LABS: CKMB Creatine Kinase MB 1.3 ng/ml (0.3-4.0)
[2017-12-25] MEDS: MAGNESIUM OXIDE 400 MG TAB PO SCH ×2 (09:49→20:25)
[2017-12-25] MEDS: METOPROLOL TAR 50 MG TAB PO SCH ×2 (09:49→20:25)
[2017-12-25] MEDS: FE SULF/FA/VIT B COMP & C TAB PO SCH (09:49)
[2017-12-25] MEDS: LISINOPRIL 20 MG TAB PO SCH (09:49)
[2017-12-25] MEDS: predniSONE 10 MG TAB PO SCH (09:50)
[2017-12-25] MEDS: ENOXAPARIN 40 MG/0.4 ML SQ SCH (09:50)
[2017-12-25] MEDS: AMLODIPINE 2.5 MG TAB PO SCH (09:54)
--- NOTE | 2017-12-25 14:00 | EKG ---
Test Date: 2017-12-25 Test Time: 07:59:26 Flight Kitchen Manager: ED MEASUREMENT RESULTS: Intervals: Rate: 68 LA: 126 QRSD: 76 QT: 426 QTc: 452 [place]: P: 4 LA: 126 QRS: 31 T: 54 INTERPRETIVE STATEMENTS: Normal sinus rhythm with sinus arrhythmia Normal ECG Compared to ECG 12/23/2017 06:55:39 Prolonged QT interval no longer present Electronically Signed On 12-25-17 13:59:56 ENVIRONMENTAL FIELD SERVICES TECHNICIAN by Aristides Valentine
--- NOTE | 2017-12-25 21:18 | PN ---
Date of Progress Note: 12/25/2017 Subjective: The patient was seen this morning for followup. No new complaints or problems reported by her. Lying in bed, not in distress except she was complaining of some shortness of breath type of feeling and some dry cough and pain in her chest when she coughs. Objective: Vital Signs: Reviewed. HEENT: Unremarkable. Lungs: Clear to auscultation. No rhonchi. No rales. Heart: Sounds normal. Abdomen: Soft, bowel sounds normal. No guarding, rigidity, tenderness, or distention. Extremities: No leg edema. Impression: 1.Metabolic acidosis. 2.Hypoglycemia. 3.Hypertension. 4.Anemia, chronic. 5.Chronic steroid therapy. 6.Rheumatoid arthritis. 7.Chest pain. 8.Dyspnea. Plan: We will go ahead and discontinue IV fluid. Continue to follow with bungy jump master. Continue to ambulate with physical therapy. Get a chest x-ray, cardiac enzymes, another blood work per order. I will see her tomorrow for followup. Depending on her condition, we will decide if we can possibly discharge her to go home tomorrow or not. SALO/MODL Voice ID: [id number] Report ID: [id number]
--- NOTE | 2017-12-25 23:09 | PN ---
Date of Progress Note: 12/25/2017 Chief Complaint: Metabolic acidosis, electrolytes abnormalities. History Of Present Illness: The patient has multiple medical problems including history of hypertension, osteoarthritis, rheumatoid arthritis, hyperlipidemia, pulmonary hypertension. She was brought to the hospital because of altered mental status and was found to have hypoglycemia and lab work showed metabolic acidosis. There was non-anion gap metabolic acidosis. Nephrology consultation was obtained for metabolic acidosis. Bicarbonate was 14. The patient received bicarbonate replacement. Review of Systems: The patient is not a good historian. Denies complaints. Denies chest pain or palpitations. Physical Examination: Lungs: Clear to auscultation bilaterally. Heart: S1, S2. Abdomen: Soft, benign. Extremities: Trace edema. Laboratory Data: Sodium 141, potassium 4.2, bicarbonate 14, BUN 21, creatinine 1.4. Estimated GFR 42. Magnesium 1.2, calcium 8.2, albumin 2.6. Yesterday blood work showed BUN 15, creatinine 1.08, calcium 8.1. Urinalysis; specific gravity 1.010, urine sodium 47, potassium 5, chloride 36, protein-creatinine ratio of 0.2. Anion gap in the urine is 23. Ultrasound showed right kidney 9.2 and left kidney 9.5 cm. Impression And Plan: 1. Acute kidney injury, secondary to prerenal azotemia, normal kidney size, although the patient likely has underlying hypertensive kidney disease, benign nephrosclerosis, borderline proteinuria present. No nephrosis. Monitor electrolytes and proteinuria closely and adjust blood pressure medication. Blood pressure is uncontrolled. The patient was initiated on Norvasc. Continue to monitor blood pressure. 2. Acidosis, non-anion gap, likely secondary to GI losses, and plan is to monitor for any evidence of diarrhea. 3. Bicarbonate replacement was ordered. Re-evaluate electrolytes. 4. Hypomagnesemia. The patient was started on replacement, and she is responding to current treatment. 5. Plan is to check blood work tomorrow. Today, the patient was found to have mild hyperkalemia, potassium was 5.3, and received Kayexalate. Magnesium level is 1.7. Continue magnesium replacement. Metabolic acidosis resolved and bicarbonate is 30. EB/MODL Voice ID: [id number] Report ID: [id number] [facility]ees[facility]
[2017-12-26] MEDS: ALBUTEROL INHALER 60 PUFF/8 GM IH PRN ×3 (00:22→09:40)
[2017-12-26 05:32] LABS: Absolute Lymphocytes (CBC) 2.4 K/uL (0.7-4.9); Absolute Monocytes 0.8 K/uL (0.1-1.3); Absolute Neutrophil 4.6 K/uL (1.8-8.0); Basophils % 0.4 % (0-1.3); Eosinophils % 1.9 % (0-4.4); Hematocrit 32.7 % (36.0-45.0); Lymphocytes % 30.1 % (15.3-44.8); MCH 32.9 pg (27.0-35.0); MCV 102.2 fL (80-100); Monocytes % 9.6 % (3.3-12.3)
[2017-12-26] MEDS: PANTOPRAZOLE 40MG TABLET PO SCH (05:43)
[2017-12-26] MEDS: D50W 25 GM/50 ML SYRINGE IV PRN (06:21)
[2017-12-26 06:55] LABS: Potassium 4.2 mEq/L (3.6-5.0)
[2017-12-26 06:59] LABS: Albumin 2.6 g/dL (3.2-5.5); Magnesium 1.7 mg/dL (1.8-2.5); Phosphorus 2.9 mg/dL (2.5-4.3); Thyroid Stimulating Hormone 1.9 uIU/mL (0.34-5.60)
[2017-12-26] MEDS ORDERED: MAGNESIUM SULFATE 1 gm IVPB 1 GM/100 ML BAG IV ONE (09:00)
[2017-12-26] MEDS: ENOXAPARIN 40 MG/0.4 ML SQ SCH (09:36)
[2017-12-26] MEDS: AMLODIPINE 2.5 MG TAB PO SCH (09:37)
[2017-12-26] MEDS: METOPROLOL TAR 50 MG TAB PO SCH ×2 (09:37→20:50)
[2017-12-26] MEDS: MAGNESIUM OXIDE 400 MG TAB PO SCH ×2 (09:37→20:51)
[2017-12-26] MEDS: predniSONE 10 MG TAB PO SCH (09:37)
[2017-12-26] MEDS: LISINOPRIL 20 MG TAB PO SCH (09:37)
[2017-12-26] MEDS: FE SULF/FA/VIT B COMP & C TAB PO SCH (09:37)
[2017-12-26] MEDS: D5 0.9 NS 1,000 ML IV SCH (10:45)
--- NOTE | 2017-12-26 14:10 | PN ---
Date of Progress Note: 12/26/2017 Chief Complaint: Metabolic acidosis and electrolyte abnormalities. During this admission the patient was found to have a new onset of metabolic acidosis. Bicarbonate was 14. Although review of previous medical records reveal that she had episode of similar event back some years ago when she was admitted to the hospital in [place]. Back in 2006 bicarbonate was 11 and subsequently next day improved to 19 and 20 and she was discharged to home on May 26, 2007 when bicarbonate was 21. Review of the lab work, February 05, 2011, bicarbonate was 26 and 24. The patient has not been treated with sodium bicarbonate. She denies history of urinary retention. She denies history of kidney stones. Renal ultrasound did not show obstructive uropathy. There was no evidence of hydronephrosis during this admission. During this admission renal ultrasound showed right kidney 9.2 cm in length and left kidney 9.5. It was unremarkable sonogram without hydronephrosis. No focal mass or perinephric fluid. The patient today mention that she had diarrhea yesterday which appears to be several bowel movements secondary to the dose of Kayexalate which she received for hyperkalemia. Potassium level was 5.3. At that time, bicarbonate was 30. Sodium 139 and BUN 13, creatinine 0.94. She was found to have acute kidney injury when she came to the hospital, and creatinine was 1.47 and gradually improved to 0.89. On previous occasion, back in 2016, creatinine was 2.01. The patient has history of acute on chronic. kidney injury with prerenal azotemia. During this admission magnesium level was found to be 1.2. She received replacement and it improved to 1.9 over last 24 hours. The patient has been treated with magnesium supplementation. Magnesium level 1.7. Review of Systems: The patient is feeling better. She denies PND or orthopnea. Physical Examination: Lungs: Clear to auscultation bilaterally. Heart: S1, S2. Abdomen: Soft, benign. Extremities: Slight edema in both legs. Laboratory Data: Today lab work show sodium 137, potassium 4.2, chloride 103, CO2 29, BUN 9, creatinine 0.89, glucose 116, magnesium 1.7, phosphorus 2.9, calcium 8.3. Urine electrolytes on December 22 showed sodium 47, potassium 12, and chloride was 36. Impression And Plan: 1. The patient was found to have metabolic hyperchloremic acidosis which was resolving over 24 hours and bicarbonate on admission was 14. Today bicarbonate remains in stable range despite the fact that she has had diarrhea yesterday. I discussed case with Dr. Levy and he has some concerns the patient may be having renal tubular acidosis. The patient will have urine test with electrolytes as urine osmolality to reevaluate possibility of renal tubular acidosis, although today she does not appear to have metabolic acidosis. 2. Acute kidney injury. The patient completed treatment with IV fluids and azotemia is in control. 3. Hypomagnesemia. Continue magnesium replacement. 4. Hyperkalemia. One episode of borderline hyperkalemia treated with Kayexalate. Potassium level improved. I spent total 36 min including 26 min to coordinate care plan. OPAL/JILL Voice ID: [id number] Report ID: [id number] MTDD
--- NOTE | 2017-12-26 14:25 | PN ---
Date of Progress Note: 12/26/2017 Subjective: The patient was seen this morning for followup. No new complaints or problems reported by her. Lying in bed, not in distress. Objective: Vital Signs: Reviewed. HEENT: Unremarkable. Lungs: Clear to auscultation. Heart: Sounds normal. Abdomen: Soft, bowel sounds normal. No guarding, rigidity, tenderness, or distention. Extremities: No leg edema. Laboratory Data: White count 8, hemoglobin 10.5, platelets 171. Sodium 137, potassium 4.3, chloride 103, bicarb 29, BUN 9, creatinine 0.89, glucose 116, magnesium 1.7. This morning around 6:15 a.m. her blood glucose dropped down to 58 and she was given 1 dose of IV D50. She did eat her breakfast this morning and when I just saw her about 30 minutes ago her glucose was 73 and IV fluid, which was discontinued yesterday, I am going to restart D5 normal saline 50 cc per hour. Impression: 1. Hypoglycemia. 2. Metabolic acidosis. 3. Hypertension. 4. Anemia, chronic. Plan: We will continue to follow with the copyist, Dr. Lu, who is the copyist. I did talk to her and requested further workup for metabolic acidosis as I am concerned about possibility of RTA, which is renal tubular acidosis. We will also look into hypoglycemia workup. We will see what workup we had done in the past and accordingly we will decide further workup for her. We were originally thinking about possible discharge today, but we will not being discharging her today and the patient was made aware of that. SALO/MODL Voice ID: [id number] Report ID: [id number] [place]
[2017-12-26 21:28] LABS: UR POTASSIUM 9.1 mEq/L (25-120)
[2017-12-27 06:16] LABS: Potassium 4.5 mEq/L (3.6-5.0)
[2017-12-27 06:20] LABS: Albumin 2.4 g/dL (3.2-5.5); Magnesium 1.8 mg/dL (1.8-2.5); Phosphorus 2.7 mg/dL (2.5-4.3)
[2017-12-27] MEDS ORDERED: MAGNESIUM SULFATE 1 gm IVPB 1 GM/100 ML BAG IV ONE (06:26)
[2017-12-27] MEDS: PANTOPRAZOLE 40MG TABLET PO SCH (06:34)
[2017-12-27] MEDS: predniSONE 10 MG TAB PO SCH (08:13)
[2017-12-27] MEDS: AMLODIPINE 2.5 MG TAB PO SCH (08:13)
[2017-12-27] MEDS: METOPROLOL TAR 50 MG TAB PO SCH ×2 (08:13→20:52)
[2017-12-27] MEDS: FE SULF/FA/VIT B COMP & C TAB PO SCH (08:14)
[2017-12-27] MEDS: LISINOPRIL 20 MG TAB PO SCH (08:14)
[2017-12-27] MEDS: MAGNESIUM OXIDE 400 MG TAB PO SCH ×2 (08:14→20:52)
[2017-12-27] MEDS: ENOXAPARIN 40 MG/0.4 ML SQ SCH (08:14)
--- NOTE | 2017-12-27 11:47 | PN ---
Date of Progress Note: 12/27/2017 Subjective: The patient was seen this morning for followup. No new complaints or problems reported by the patient. Lying in bed, not in any distress. Vital signs reviewed. Yesterday, she did not am bulate as she reported that physical therapist did not come to help ambulate her. I have instructed nursing staff to make sure to try to get the patient to ambulate today with the help of physical fitness trainer apist. Objective: Vital Signs: Reviewed. HEENT: Unremarkable. Lungs: Clear to auscultation. Heart Sounds: Normal. Abdomen: Soft. Bowel sounds normal. No guarding, rigidity, tenderness, or distention. Extremities: No leg edema. Laboratory Data: Sodium 138, potassium 4.5, chloride 104, bicarb 29, BUN 10, creatinine 0.89, glucos e 86, and magnesium 1.8. Fingerstick blood sugar readings reviewed. Impression: 1.Hypoglycemia. 2.Metabolic acidosis. 3.Hypertension. 4.Anemia, chronic. 5.Rheumatoid arthritis. Plan: We will continue current medications. Continue IV fluid. We will follow up on insulin and C- peptide level, which will be drawn this morning. Continue to follow with dry heat cabinet attendant for metabolic acidosis and further workup. SALO/MODL Voice ID: [id number] Report ID: [id number]
[2017-12-27] MEDS: D5 0.9 NS 1,000 ML IV SCH (13:25)
--- NOTE | 2017-12-28 01:30 | PN ---
Date of Progress Note: 12/27/2017 History Of Present Illness: Acute kidney injury, nonoliguric. Renal function has improved. The pat ient on arrival to the hospital was found to have metabolic acidosis. There was hyperchloremic acido sis with bicarbonate 14. Back in 2016 in the hospital, the patient was found to have acidosis with b icarbonate 11. During this admission, bicarbonate improved to normal levels, and the patient althoug h was found to have hyperkalemia, potassium was 5.3, and was treated with Kayexalate. At that time, bicarbonate was 30. The patient developed diarrhea, which was felt to be secondary to Kayexalate, an d despite diarrhea, bicarbonate has been in stable range and did not deteriorate to metabolic acidosi s. The patient on previous occasion was admitted with prerenal azotemia, and renal function improved wit h adequate fluid and hydration. During this admission, electrolytes improved, and the patient did no t have recurrent episodes of metabolic acidosis. Review of Systems: Denies fever, chills. Physical Examination: Lungs: Few crackles at bases. Heart: S1, S2. Abdomen: Soft, benign. Extremities: No edema. Laboratory Work: Sodium is 138, potassium 4.5, chloride 104, CO2 29, BUN 10, glucose 86, creatinine improved from 1.47 to 0.89, bicarbonate on December 22 was 14, subsequently on December 23 was 30, and ailyn ins ranging from 29 to 30. The patient does not have a recurrent metabolic acidosis. Impression And Plan: Metabolic acidosis. On arrival to the hospital, questionable renal tubular aci dosis, although due to the fact that it was very transient, it does not fall to the category of renal tubular acidosis. It might be precipitated by transient bladder outlet dysfunction with urinary ret ention. At the time when she was admitted, the patient had hypoglycemia, and this was probably facto r to precipitate urinary retention, which may lead to metabolic acidosis with hyperchloremic features . Renal ultrasound was done on December 22 and did not show hydronephrosis. I am going to order bladd er ultrasound to rule out postvoid residual volume. The patient had episode of hyperkalemia and this might be due to urinary retention. EB/MODL Voice ID: [id number] Report ID: [id number]
[2017-12-28] MEDS: PANTOPRAZOLE 40MG TABLET PO SCH (05:47)
[2017-12-28 05:58] LABS: Potassium 4.3 mEq/L (3.6-5.0)
[2017-12-28 06:02] LABS: Albumin 2.1 g/dL (3.2-5.5); Magnesium 1.7 mg/dL (1.8-2.5); Phosphorus 3.2 mg/dL (2.5-4.3)
[2017-12-28] MEDS: D50W 25 GM/50 ML SYRINGE IV PRN (08:26)
[2017-12-28] MEDS: ENOXAPARIN 40 MG/0.4 ML SQ SCH (08:26)
[2017-12-28] MEDS: AMLODIPINE 2.5 MG TAB PO SCH (08:27)
[2017-12-28] MEDS: FE SULF/FA/VIT B COMP & C TAB PO SCH (08:28)
[2017-12-28] MEDS: METOPROLOL TAR 50 MG TAB PO SCH ×2 (08:28→21:26)
[2017-12-28] MEDS: MAGNESIUM OXIDE 400 MG TAB PO SCH ×2 (08:28→21:26)
[2017-12-28] MEDS: LISINOPRIL 20 MG TAB PO SCH (08:28)
[2017-12-28] MEDS: predniSONE 20 MG TAB PO SCH (08:29)
--- NOTE | 2017-12-28 11:37 | RAD REPORT ---
EXAM DESCRIPTION: US - Urinary Bladder - 12/28/2017 10:59 am FINDINGS: No urinary bladder wall thickening or mass. Bilateral ureteral jets are identified. Prevoid volume 152 milliliters. Postvoid volume 51 milliliters.
--- NOTE | 2017-12-28 11:42 | PN ---
Date of Progress Note: 12/28/2017 Subjective: The patient was seen this morning for followup. Lying in bed, not in distress. Gets IV fluid, D5 normal saline per order. Fingerstick blood sugar readings reviewed. She has good appetit e. No new complaints or problems reported. She did ambulate yesterday. Objective: Vital Signs: Reviewed. HEENT: Unremarkable. Lungs: clear to auscultation. Heart: sounds normal. Abdomen: Soft. Bowel sounds normal. No guarding, rigidity, tenderness, or distention. Extremities: No leg edema. Laboratory Data: Fingerstick blood sugar readings reviewed. Cortrosyn stimulation test done on Duy h 9, shows baseline cortisol level of 4.2, which was low and highest cortisol level 16.7 at 90 minute s. Impression: 1.Hypoglycemia. 2.Metabolic acidosis. 3.Glucocorticoid insufficiency. 4.Hypertension. 5.Rheumatoid arthritis. Plan: The patient was supposed to be taking 10 mg prednisone daily on outpatient basis considering t his Cortrosyn stimulation test and hypoglycemia problem. We will increase the dose to 20 mg p.o. neo ly. It is possible that her hypoglycemia could be due to glucocorticoid insufficiency and not taking adequate amount of prednisone, so we will see how she does once we increase the dose to 20 mg daily. Today, we will discontinue her IV fluid. Continue to monitor fingerstick blood sugar and physical therapy to continue to ambulate. Depending on her condition, we will decide if we can discharge her to go home tomorrow or not. SALO/MODL Voice ID: [id number] Report ID: [id number]
[2017-12-28] MEDS: metroNIDAZOLE 500 MG TABLET PO SCH ×2 (16:33→21:26)
--- NOTE | 2017-12-28 23:03 | PN ---
Date of Progress Note: 12/28/2017 Chief Complaint: Acute kidney injury, nonoliguric. Subjective: The patient has nonoliguric acute renal injury and renal function has improved somewhat. On arrival to the hospital, the patient was found to have metabolic acidosis. There was hyperchloremic metabolic acidosis with bicarbonate 14. Subsequently, acidosis resolved. The patient also had 1 episode of hyperkalemia with potassium of 5.3, and at that time the patient was treated with Kayexalate and bicarbonate was 30. There was no evidence of metabolic acidosis. Today, the patient stated that she had diarrhea prior to this admission and likely developed metabolic acidosis due to diarrhea. The patient is to have bladder scan to rule out abnormal postvoid residual volume to rule out bladder outlet obstruction or neurogenic bladder. Review of Systems: Denies fever, chills. Objective: Lungs: Clear to auscultation bilaterally. Heart: S1, S2. Abdomen: Soft, benign, and nontender. Extremities: No edema. Laboratory Data: Sodium 138, potassium 4.3, chloride 104, CO2 28, BUN 14, creatinine 0.93, glucose 90, magnesium 1.7, phosphorus 3.2, calcium 8.2. Impression And Plan: 1. Metabolic acidosis, hyperchloremic. The patient also has history of hypomagnesemia. Urine magnesium, fractional excretion will be evaluated. 2. Bladder ultrasound was done to rule out bladder outlet obstruction and to assess possible residual volume. Postvoid residual volume is 51. There is no evidence of abnormal voiding pattern. 3. The patient developed acute kidney injury, which is nonoliguric and is improving. The patient had prerenal azotemia. The patient will need to currently follow up with Nephrology. 4. Monitor electrolytes. At this point, acidosis is not present. The patient does not require sodium bicarbonate tablets at this point. EB/MODL Voice ID: [id number] Report ID: [id number] [place]
[2017-12-29 01:52] VITALS: O2SAT 100
[2017-12-29] MEDS: PANTOPRAZOLE 40MG TABLET PO SCH (05:31)
[2017-12-29] MEDS: D50W 25 GM/50 ML SYRINGE IV PRN (06:37)
[2017-12-29 08:01] LABS: Potassium 4.1 mEq/L (3.6-5.0)
[2017-12-29] MEDS ORDERED: metroNIDAZOLE 500 MG TABLET PO SCH (09:00)
[2017-12-29] MEDS ORDERED: FOLBIC 1 TAB PO SCH (09:00)
[2017-12-29] MEDS: ENOXAPARIN 40 MG/0.4 ML SQ SCH (09:05)
[2017-12-29] MEDS: AMLODIPINE 2.5 MG TAB PO SCH (09:06)
[2017-12-29] MEDS: MAGNESIUM OXIDE 400 MG TAB PO SCH (09:06)
[2017-12-29] MEDS: LISINOPRIL 20 MG TAB PO SCH (09:06)
[2017-12-29] MEDS: FE SULF/FA/VIT B COMP & C TAB PO SCH (09:06)
[2017-12-29] MEDS: predniSONE 20 MG TAB PO SCH (09:06)
[2017-12-29] MEDS: METOPROLOL TAR 50 MG TAB PO SCH (09:07)
[2017-12-29 13:19] VITALS: BP 128/64; TEMP 97.2
--- NOTE | 2017-12-30 06:28 | DS ---
Date of Discharge: 12/29/2017 Disposition: Discharged to go home. Physical Examination: HEENT: Unremarkable. Lungs: Clear to auscultation. Heart: Sounds normal. Abdomen: Soft. Bowel sounds normal. No guarding, rigidity, tenderness, or distention. Extremities: No leg edema. Laboratory Data: This morning sodium 140, potassium 4.1, chloride 106, bicarb 26, BUN 20, creatinine 1.13, glucose 99. Her white count when she first came in was 11.1, hemoglobin 11, platelets 242. L ast white count on December 26 8, hemoglobin 10.5, platelets 171. Her initial chemistry when she came i n, sodium 141, potassium 4.2, chloride 111, bicarb 14, BUN 21, creatinine 1.47, glucose 158, magnesiu m 1.2. SGOT 195, SGPT 35. Serum ferritin 264. Folic acid level 4.8, which is low, B12 314 and rand om serum cortisol 6.6 which was low done on 12/24/2017 and on 12/25/2017, the patient had a Cortrosyn stimulation test which showed baseline cortisol level 4.2, which was low. At 30 minutes it was 11.6 , at 60 minutes it was 13.8, and at 90 minutes it was 16.7. Serum ACTH level was 10. Stool for C. d iff was reported positive yesterday. Discharge Medications And Instructions: 1.Continue all prior home medications. Follow up at my office in 1 month. 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 3.Take metronidazole 500 mg p.o. 4 times a day for 10 days as prescribed. 4.Take Folbic 1 tablet by mouth daily. 5.Take prednisone 10 mg tablet, the patient to take 2 tablets in the morning and 1 tablet in the brayan viktoria with food for 1 week and after that, the patient to take 1 tablet 2 times a day and that is to t bashir it with breakfast and supper and details were explained to the patient as well personally by me angle kwong. Hospital Course: This is a 77-year-old female patient, admitted to the hospital with altered mental status. Please see dictated H and P for more information. The patient lives at home with her daught er, was brought into emergency room with this altered mental status and her blood sugar was low so af ter she presented to emergency room with this hypoglycemia, she was given IV glucose solution and was admitted to the hospital with IV fluid containing glucose. Initially, we monitored her fingerstick blood sugar every hour and later on, we drop down frequency to every 2 hours. When we did try to sto p her IV fluid with glucose solution, she did have an episode of hypoglycemia again so we did restart her on IV fluid with glucose solution and as of yesterday morning we were able to discontinue it and so far she has maintain her adequate level of blood sugar level. She has good appetite and when she came in, she actually had diarrhea day before she came into the hospital. She has not had any recur rence of diarrhea. Stools test was done and it was reported as stool C diff positive as of yesterday . The patient was started on metronidazole. We will continue this metronidazole for 10 days and fol low up on outpatient stool test as mentioned above. Physical therapy was consulted and the patient s tarted to ambulate well with the physical therapy. The patient has had significant metabolic acidosi s when she first came in along with hypoglycemia. Nephrology consultation was obtained and initially the patient was on IV bicarbonate drip which was subsequently discontinued once her metabolic acidos is problem resolved. It was thought that the patient's metabolic acidosis was due to diarrhea and ne phrologist did not suggest any further workup on it and once her metabolic acidosis problem resolved, she did not have any recurrence of that. Last year when she was in the hospital, she was discharged to go home with maintenance dose of prednisone and when I saw her in the office few months ago, she was taking her prednisone and during this hospital admission, she reported that she was not taking he r prednisone and she does not know why she stopped, obviously it was not discontinued by me so I have instructed her that she has the deficiency of steroid hormone in her body. Her body is not producin g enough steroid and she will need to stay on prednisone for life long and importance of it explained to her and was advised to take it as prescribed. I have drawn blood for insulin and C-peptide level and result is pending. We will follow up on it but I strongly suspect that her hypoglycemia is like ly due to adrenal insufficiency. Final Diagnoses: 1.Metabolic acidosis. 2.Clostridium difficile colitis. 3.Hypoglycemia. 4.Glucocorticoid insufficiency. 5.Hypertension. 6.Anemia, chronic. 7.Rheumatoid arthritis. 8.Hypomagnesemia. 9.Osteoporosis. SALO/MODL Voice ID: [id number] Report ID: [id number]
[2017-12-31 06:38] LABS: C-Peptide 2.08 ng/mL (0.80-3.85)
== END 2017-12-29 12:05 | disposition home health service (06) | DRG 641 ==
LOC: ER 09:25 → ERHOLD 10:55 → 2ND 13:14
PROVIDERS: ADMIT Internal Medicine; ATTEND Internal Medicine
PROC: 0T9B70Z Drainage of Bladder with Drainage Device, Via Natural or Artificial Opening (ICD-10-PCS; principal; 2017-12-22)
DX: E16.2 Hypoglycemia, unspecified (principal); E87.2 Acidosis; N17.9 Acute kidney failure, unspecified; A04.72 Enterocolitis due to Clostridium difficile, not specified as recurrent; I10 Essential (primary) hypertension; D64.9 Anemia, unspecified; E83.42 Hypomagnesemia; E87.5 Hyperkalemia; R19.7 Diarrhea, unspecified; I27.20 Pulmonary hypertension, unspecified; M06.9 Rheumatoid arthritis, unspecified; E78.5 Hyperlipidemia, unspecified; M10.9 Gout, unspecified; K21.9 Gastro-esophageal reflux disease without esophagitis; M15.9 Polyosteoarthritis, unspecified; Z79.52 Long term (current) use of systemic steroids
CPT/HCPCS: 36415; 51702; 70450; 71045; 76770; 76857; 80048; 80069; 80076; 81003; 82009; 82024; 82274; 82435; 82533; 82550; 82553; 82570; 82607; 82728; 82746; 82805; 82962; 83525; 83540; 83605; 83690; 83735; 83880; 83935; 84132; 84156; 84300; 84443; 84466; 84484; 84681; 85025; 85610; 85730; 87040; 87045; 87046; 87493; 93005; 96361; 96365; 96367; 96375; 97163; 99285; J0696; J0834; J1650; J2405; J3475; J7512

== ENCOUNTER 2018-01-28 12:23 | Observation (INO) | payer OTHER ==
[2018-01-28] MEDS ORDERED: PNEUMOCOCCAL VACCINE 0.5 ML IMVAC ONE (14:00)
--- NOTE | 2018-01-28 14:25 | RAD REPORT ---
EXAM DESCRIPTION: RAD - Chest Single View - 01/28/2018 2:00 pm CLINICAL HISTORY: Chest pain COMPARISON: December 25 TECHNIQUE: AP portable chest image was obtained 1348 hours . FINDINGS: Lungs are clear. Heart and vasculature are normal. No measurable pleural effusion and no p neumothorax. No gross bony abnormality seen. No acute aortic findings suspected. IMPRESSION: No acute cardiopulmonary process. No significant change from comparison.
[2018-01-28 14:32] LABS: Absolute Lymphocytes (CBC) 1.3 K/uL (0.7-4.9); Absolute Monocytes 0.2 K/uL (0.1-1.3); Absolute Neutrophil 4.2 K/uL (1.8-8.0); Basophils % 0.5 % (0-1.3); Eosinophils % 0.1 % (0-4.4); Hematocrit 38.9 % (36.0-45.0); Lymphocytes % 21.7 % (15.3-44.8); MCH 32.1 pg (27.0-35.0); MCV 100.4 fL (80-100); MPV 10.6 fL (7.6-11.3); Monocytes % 4.3 % (3.3-12.3); RBC Red Blood Cell Count 3.88 M/uL (3.86-4.86)
[2018-01-28] MEDS ORDERED: cloNIDine HCl 0.1 MG TAB PO ONE ×2 (14:52→16:00)
[2018-01-28] MEDS ORDERED: ASPIRIN EC 81 MG TAB PO ONE (14:53)
[2018-01-28 15:17] VITALS: BMI 37.2
[2018-01-28] MEDS: NITROGLYCERIN 1 GM PKT TD SCH ×2 (15:47→16:10)
[2018-01-28 16:09] LABS: Potassium 4.6 mEq/L (3.6-5.0)
[2018-01-28 16:10] LABS: Albumin 3.7 g/dL (3.2-5.5); Bilirubin Total 1.2 mg/dL (0.3-1.2); Protein, Total 7.7 g/dL (6.0-8.3)
[2018-01-28 16:13] LABS: Magnesium 1.5 mg/dL (1.8-2.5)
--- NOTE | 2018-01-28 16:25 | ECHO ---
HEIGHT: 5 ft 3 in WEIGHT: 210 lb 0 oz DATE OF STUDY: 01/28/[address]: Sg Levy MD 2-DIMENSIONAL: YES M.MODE: YES DOPPLER: YES COLOR FLOW: YES TDS: NO PORTABLE: NO DEFINITY: NO BUBBLE STUDY: NO DIAGNOSIS: CHEST PAIN CARDIAC HISTORY: CATHERIZATION: NO SURGERY: NO PROSTHETIC VALVE: NO PACEMAKER: NO MEASUREMENTS (cm) DIASTOLIC (NORMALS) SYSTOLIC (NORMALS) IVSd 0.9 (0.6-1.2) LA Diam (1.9-4.0) LVEF 68% LVIDd 2.8 (3.5-5.7) LVIDs 2.1 (2.0-3.5) %FS 24% LVPWd 1.3 (0.6-1.2) Ao Diam 2.9 (2.0-3.7) 2 DIMENSIONAL ASSESSMENT: RIGHT ATRIUM: NORMAL LEFT ATRIUM: NORMAL RIGHT VENTRICLE: NORMAL LEFT VENTRICLE: NORMAL TRICUSPID VALVE: NORMAL MITRAL VALVE: MITRAL ANNULAR CALCIFICATION PULMONIC VALVE: NORMAL AORTIC VALVE: SCLEROSIS PERICARDIAL EFFUSION: NONE AORTIC ROOT: NORMAL LEFT VENTRICULAR WALL MOTION: NORMAL. DOPPLER/COLOR FLOW: MILD TRICUSPID REGURGITATION - NORMAL RIGHT VENTRICULAR SYSTOLIC PRESSURE. COMMENTS: MILD TRICUSPID REGURGITATION - NORMAL RIGHT VENTRICULAR SYSTOLIC PRESSURE. NORMAL LEFT VENTRICULAR SIZE AND FUNCTION. MITRAL ANNULAR CALCIFICATION. AORTIC SCLEROSIS. TECHNOLOGIST: MINA BERGER
[2018-01-28 16:44] LABS: Thyroid Stimulating Hormone 0.85 uIU/mL (0.34-5.60)
[2018-01-28] MEDS: METRONIDAZOLE 500 MG PO SCH ×2 (17:00→21:00)
[2018-01-28] MEDS: ALBUTEROL SULFATE 90 MCG IH SCH ×2 (17:00→21:00)
[2018-01-28] MEDS ORDERED: Magnesium Sulfate 2gm IVPB 2 G/50 ML BAG IV ONE (18:00)
[2018-01-28] MEDS: AMLODIPINE BESYLATE 2.5 MG PO SCH (21:00)
[2018-01-28] MEDS: METOPROLOL TARTRATE 50 MG PO SCH (21:00)
[2018-01-28] MEDS ORDERED: ENOXAPARIN 40 MG/0.4 ML SQ ONE (22:18)
--- NOTE | 2018-01-29 02:04 | HP ---
Date of Admission: 01/28/2018 Chief Complaint: Chest pain. History Of Present Illness: This is a 77-year-old female patient, who was admitted to the hospital a fter she came into my office today with her family member. The patient came in for her routine [facility] visit after her last hospital admission. She takes her medications regularly. Upon further ques tioning, she reported that today she had chest pain before she came into the office. The pain lasted for about 15-20 minutes and it happened at rest. Pain was spontaneous and it was in the precordial region describing as more like heaviness, pressure type of feeling. The patient denies any fever, ch ills, nausea, vomiting. No shortness of breath. No sweating. No aggravating or relieving factor. No rash. No cough or cold congestion. No fall. No injury. After the patient was evaluated at the office, she was admitted to the hospital. The patient never had this kind of pain before. There is no prior history of any coronary artery disease. Medications: List reviewed. Review of Systems: Cardiovascular: As mentioned above. All other systems reviewed and negative. Allergies: NO KNOWN ALLERGIES. Social History: Negative for smoking and alcohol use. Family History: Sister of brain tumor. Mother of breast cancer. Mother also had diabetes . Father of jaundice. 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 Past Medical History: Hypertension, osteoarthritis at multiple sites, rheumatoid arthritis, hyperlip idemia, anemia, gastroesophageal reflux disease, osteoarthritis at multiple sites, depression, fatigu e, pulmonary hypertension, metabolic acidosis, Clostridium difficile colitis, glucocorticoid insuffic iency, hypoglycemia. Physical Examination: Vital Signs: When she was first admitted, temperature 97.6, pulse 72, respiratory rate 16, blood pre ssure 188/99. Height 5 feet 3 inches. Weight 210 pounds. General: Awake, alert, oriented, not in distress. HEENT: Head atraumatic, normocephalic. Conjunctivae nonerythematous. Sclerae white. Mouth, no thr ush or edema noted. Ears/Nose, no mass, lesion, discharge noted. Neck: Supple. No JVD, lymph nodes, bruit, thyromegaly noted. Lungs: Bilateral good equal air entry. Clear to auscultation. No rhonchi. No rales. Heart: Normal heart sounds, no murmur or gallop. Abdomen: Soft, bowel sounds normal. No guarding, rigidity, tenderness, mass, hepatosplenomegaly, dis tention, or bruit noted. Extremities: Shows chronic deformity of both hands due to rheumatoid arthritis. Skin: No rash, ulcer, cellulitis. Lymphatics: No lymph node enlargement in neck, supraclavicular, infraclavicular region. Neuro: No focal neurological deficit. Chest: Unremarkable. External Genitalia: Deferred. Rectal: Deferred. Laboratory Data: White count 5.8, hemoglobin 12.4, platelets 124. Troponin less than 0.03. Sodium 137, potassium 4.6, chloride 107, bicarb 23, BUN 10, creatinine 1.10. Glucose 94, magnesium 1.5. Li marian function tests unremarkable except SGOT 48, TSH 0.85. EKG, no acute ST-T changes. Chest x-ray, no acute cardiopulmonary changes. Echocardiogram done after admission today, ejection fraction 68%, mild tricuspid regurgitation, mitral annular calcification, and aortic sclerosis. Impression: 1.Chest pain. 2.Hypomagnesemia. 3.Thrombocytopenia. 4.Glucocorticoid insufficiency, on chronic steroid therapy. 5.Clostridium difficile colitis. 6.Hypertension. 7.Rheumatoid arthritis. 8.Osteoporosis. 9.Osteoarthritis, multiple sites. Plan: Admit the patient to hospital for further evaluation and management of this problem. The franko ent is appropriate for observation. We will go ahead and get serial cardiac enzymes. Replace magnes ium per protocol. Start the patient on aspirin and nitroglycerin paste and clonidine 1 time order wa s given because blood pressure was elevated after admission. Home medications will be continued per o rder. DVT prophylaxis will be given using Lovenox. Consult Cardiology. Echocardiogram was unremark able. We will go ahead and get a stress test done tomorrow. Details and plan of treatment discussed with the patient and family member at the office. SALO/MODL Voice ID: [id number]
[2018-01-29 05:54] LABS: Magnesium 1.9 mg/dL (1.8-2.5); Potassium 4.6 mEq/L (3.6-5.0)
[2018-01-29] MEDS: NITROGLYCERIN 1 GM PKT TD SCH ×3 (06:00→12:21)
[2018-01-29] MEDS ORDERED: REGADENOSON 0.4 MG/5 ML SYR IV ONE (07:34)
[2018-01-29] MEDS ORDERED: PREDNISONE 10 MG PO SCH (09:00)
[2018-01-29] MEDS ORDERED: ASPIRIN EC 81 MG TAB PO SCH (09:00)
[2018-01-29] MEDS ORDERED: FLUOXETINE HCL 20 MG PO SCH (09:00)
[2018-01-29] MEDS: AMLODIPINE BESYLATE 2.5 MG PO SCH (09:00)
[2018-01-29] MEDS: ALBUTEROL SULFATE 90 MCG IH SCH ×2 (09:00→12:59)
[2018-01-29] MEDS: METOPROLOL TARTRATE 50 MG PO SCH (09:00)
[2018-01-29] MEDS ORDERED: CYANOCOBALAMIN PO SCH (09:00)
[2018-01-29] MEDS ORDERED: PYRIDOXINE PO SCH (09:00)
[2018-01-29] MEDS: METRONIDAZOLE 500 MG PO SCH ×2 (09:00→12:59)
[2018-01-29] MEDS ORDERED: FOLIC ACID PO SCH (09:00)
--- NOTE | 2018-01-29 10:30 | RAD REPORT ---
EXAM DESCRIPTION: NM - Rest Stress Cardiac Imaging - 01/29/2018 9:51 am CLINICAL HISTORY: Chest pain COMPARISON: None. TECHNIQUE: The patient was administered 10.9 mCi of Tc 99m Sestamibi prior to resting SPECT imaging of the heart. The patient was then administered 32.5 mCi of Tc 99m Sestamibi following exercise or ph armacologic stress. Multiplanar SPECT images were reviewed. FINDINGS: The end diastolic volume is 91 ml, the end systolic volume is 32 ml, and the ejection frac tion is 65 %. Artifacts are present from diaphragm. The artifacts are similar between rest and stress imaging. Thin viktoria at the apex is present. No stress-induced ischemic changes identifiable. Fixed defect along the inferior wall is likely artifact rather than scarring. IMPRESSION: No stress-induced ischemia identifiable. Fixed defect along the inferior wall is favored to be artifact rather than scarring. Ventricular volume and ejection fraction are normal range.
[2018-01-29 11:27] VITALS: BP 133/64; TEMP 97.6
[2018-01-29 11:37] VITALS: O2SAT 94
--- NOTE | 2018-01-29 13:27 | TREADPHA ---
DX: CHEST PAIN Date of Study: 01/29/2018 Ht: 5' 3 " Wt: 210 lb 0 oz Consulting Physician: MILENA MEDICATIONS: ASPIRIN, LOVENOX HISTORY: 77 YEAR OLD FEMALE WITH COMPLAINTS CHEST PAIN. MEDICAL HISTORY OF HYPERTENSION, HIGH CHOLESTEROL AND ARTHRITIS. PHYSICIAL EXAMINATION: RESTING B.P.: 152/75 RESTING H.R.: 61 RESTING EKG: SINUS RHYTHM WITH PREMATURE ATRIAL COMPLEXES. PROTOCOL: LEXISCAN EXERCISE TIME: 3:30 B.P. AT PEAK STRESS: 143/70 IMPRESSION: LEXISCAN INJECTED. CARDIOLITE INJECTED PER PROTOCOL. SEE NUCLEAR MEDICINE REPORT. NO SUPRAVENTRICULAR TACHYCARDIA. NO VENTRICULAR TACHYCARDIA. OCCASIONAL PREMATURE ATRIAL COMPLEXES THROUGHOUT TEST.
[2018-01-29] MEDS ORDERED: PNEUMOCOCCAL VACCINE 0.5 ML IMVAC ONE (15:00)
[2018-01-29] MEDS ORDERED: ENOXAPARIN 40 MG/0.4 ML SQ SCH (17:00)
--- NOTE | 2018-01-30 03:02 | DS ---
Date of Discharge: 01/29/2018 Disposition: Discharged to go home. Physical Examination: HEENT: Unremarkable. Lungs: Clear to auscultation. Heart: Sounds normal. Abdomen: Soft, bowel sounds normal. No guarding, rigidity, tenderness, or distention. Extremities: No leg edema. Hospital Course: A 77-year-old female patient, admitted to the hospital with complaints of chest doron n. See dictated H and P for more information. After the patient was evaluated at the office, she was admitted to the hospital. Mi was ruled out by getting serial cardiac enzymes. Cardiology consultation was requested. The patient had echocardiog cecily done which showed normal ejection fraction. Echocardiogram was unremarkable. Stress test was ne gative for stress-induced ischemia, which was done today. The patient was asymptomatic. Has not had any further chest pain during this hospitalization. Discharge Medications Instructions: Continue all prior home medications. Take aspirin 81 mg by mout h p.o. daily. Followup: Follow up at my office in 1 month. Discharge Diagnoses: 1.Chest pain. 2.Hypomagnesemia. 3.Thrombocytopenia. 4.Glucocorticoid insufficiency, on chronic steroid therapy. 5.Clostridium difficile colitis. 6.Hypertension. 7.Rheumatoid arthritis. 8.Osteoporosis. 9.Osteoarthritis, multiple sites. SALO/MODL Voice ID: [id number] Report ID: [id number]
--- NOTE | 2018-01-30 13:03 | CON ---
Date of Consultation: 01/29/2018 The patient is admitted to Dr. Levy's service on 01/28/2018. I saw the patient on 01/29/2018. Reason For Consultation: Chest pain. History Of Present Illness: Ms. Hodge is a 77-year-old black female who was sent from Dr. Levy's o ffice to the emergency room to be admitted because of chest pain. Her chest pain was lasting approxi mately about 20 minutes in the pericardial region, described as pressure. Did not have any nausea or vomiting or diaphoresis with it and was not related to food, body positions, or time of the day. He r pain is new to her. Past Medical History: Positive for hypertension, rheumatoid arthritis, dyslipidemia, anemia, degener ative joint disease, depression, fatigue, pulmonary hypertension, glucocorticoid insufficiency, anemi a, and gastroesophageal reflux disease. Medications: Listed by Dr. Levy. Review of Systems: Negative. Social History: Negative. Family History: Negative. Allergies: NONE. Physical Examination: Vital Signs: Stable. She was afebrile. Her blood pressure was slightly elevated at 188/99. She we ighed 210 pounds. HEENT: Negative. Neck: Supple without any bruit, lymphadenopathy, JVD, or thyromegaly. Chest: clear to auscultation and percussion. Cardiac: revealed a regular rhythm and rate with an S4 gallops. No murmurs or rubs. Abdomen: Benign. Extremities: Revealed no clubbing, cyanosis, or edema. Diagnostic Data: Unremarkable. Echocardiogram has already been done showing ejection fraction of 68 % with some aortic sclerosis and mitral annular calcification. EKG showed nonspecific ST-T wave monroy ges. BNP and troponin were negative. Chest x-ray was negative. Impression And Plan: This is a patient with multiple cardiac risk factors including hypertension and dyslipidemia. She has chest pain that is suggestive of coronary artery disease. A Lexiscan has bee n ordered for today. Her echocardiogram is normal. Her EKG is normal. Her chest x-ray is unremarka ble. Her BNP and troponin CPKs and MBs are all negative. If her Lexiscan is negative, we can probab ly send her home. She has other issues that Dr. Levy is handling such as low magnesium, thrombocytop enia, rheumatoid arthritis, and history of glucocorticoid insufficiency, on chronic steroid therapy. I will discuss the case further with Dr. Levy after the stress test is done. ARIC/JILL Voice ID: [id number] Report ID: [id number]
--- NOTE | 2018-01-31 22:50 | EKG ---
Test Date: 2018-01-28 Test Time: 14:48:44 Outgoing Inspector: ED MEASUREMENT RESULTS: Intervals: Rate: 70 AL: 170 QRSD: 70 QT: 444 QTc: [address]: P: 68 AL: 170 QRS: 27 T: 46 INTERPRETIVE STATEMENTS: Normal sinus rhythm Moderate voltage criteria for LVH, may be normal variant Borderline ECG Compared to ECG 12/25/2017 07:59:26 Left ventricular hypertrophy now present Sinus arrhythmia no longer present Electronically Signed On 01-31-18 22:49:29 CDT by Aristides Valentine
== END 2018-01-29 14:55 | disposition home or self-care (01) ==
LOC: 4TH 12:32
PROVIDERS: ADMIT Internal Medicine; ATTEND Internal Medicine
DX: R07.9 Chest pain, unspecified (principal); E83.42 Hypomagnesemia; D69.6 Thrombocytopenia, unspecified; I10 Essential (primary) hypertension; M06.9 Rheumatoid arthritis, unspecified; M81.0 Age-related osteoporosis without current pathological fracture; M19.90 Unspecified osteoarthritis, unspecified site; Z23 Encounter for immunization
CPT/HCPCS: 36415 ×2; 71045; 78452; 80048; 80053; 82550; 82553; 83735 ×2; 84443; 84484 ×2; 85025; 90670; 93005; 93017; 93306; A9500; G0009; G0378; G0379; J1650; J2785; J3475

== ENCOUNTER 2018-07-19 12:52 | Observation (INO) | payer OTHER ==
[2018-07-19] MEDS ORDERED: D50W 25 GM/50 ML SYRINGE IV ONE (13:28)
[2018-07-19] MEDS ORDERED: NA CHLORIDE 0.9% 1,000 ML ONE (13:28)
[2018-07-19 13:50] LABS: Absolute Lymphocytes (CBC) 1.3 K/uL (0.7-4.9); Absolute Monocytes 0.9 K/uL (0.1-1.3); Absolute Neutrophil 4.1 K/uL (1.8-8.0); Basophils % 0.6 % (0-1.3); Eosinophils % 1.5 % (0-4.4); Hematocrit 33.8 % (36.0-45.0); Lymphocytes % 19.7 % (15.3-44.8); MCH 34.3 pg (27.0-35.0); MPV 9.8 fL (7.6-11.3); Monocytes % 14.1 % (3.3-12.3); RBC Red Blood Cell Count 3.25 M/uL (3.86-4.86)
[2018-07-19 13:59] LABS: Potassium 4.3 mmol/L (3.5-5.1)
--- NOTE | 2018-07-19 14:28 | RAD REPORT ---
EXAM DESCRIPTION: RAD - Chest Single View - 07/19/2018 2:09 pm CLINICAL HISTORY: Dyspnea, cough and congestion COMPARISON: January 2018 TECHNIQUE: AP portable chest image was obtained 1357 hours . FINDINGS: No focal mass, consolidation or acute failure finding. Interstitial markings are mildly pr ominent but not significantly different. Lung markings are accentuated by a more shallow inspiratory effort. Heart and vasculature are normal. No measurable pleural effusion and no pneumothorax. No acut e bone findings seen. Degenerative changes are present. No acute aortic findings suspected. IMPRESSION: No acute cardiopulmonary process. When adjusting for a slightly shallow inspiratory effort, chest is not substantially different from A pril.
--- NOTE | 2018-07-19 15:32 | ER ---
Nurse's Notes [facility] Name: Yanelis Hodge Age: 77 yrs Sex: Female : 1940 Arrival Date: 07/19/2018 Time: 12:57 Bed 2 Private MD: Diagnosis: Pain in left wrist;Acute upper respiratory infection, unspecified;Weakness;Dehydration Presentation: 07/19 12:57 Presenting complaint: EMS states: Sinus congestion, nonproductive cough, decreased sg appetite, and fever 1 week. Has not eaten in 3 days. Also reports left hand swelling. Transition of care: patient was not received from another setting of care. Onset of symptoms is unknown. Risk Assessment: Do you want to hurt yourself or someone else? Patient reports no desire to harm self or others. Care prior to arrival: Glucose check: 58. 12:57 Method Of Arrival: EMS: [facility] sg 12:57 Acuity: SAM 2 sg 12:59 Note BP 124/78, HR 60-119, SpO2 95% on RA, T99.6, BGL 58. sg 16:45 Initial Sepsis Screen: Does the patient meet any 2 criteria? No. Patient's initial sg sepsis screen is negative. Does the patient have a suspected source of infection? No. Patient's initial sepsis screen is negative. Historical: - Allergies: 13:01 No Known Allergies; sg - Home Meds: 14:44 Actonel 35 mg Oral tab 1 tab once wkly [Active]; Drisdol 50,000 unit Oral cap 1 cap sg once wkly [Active]; gabapentin 100 mg Oral cap twice a day [Active]; Hematinic Plus Vit/Minerals 106 mg iron- 1 mg Oral tab 1 tab once daily [Active]; Hemocyte-Plus 106 mg iron- 1 mg Oral cap 1 cap once daily [Active]; Lopid 600 mg Oral tab 1 tab 2 times per day [Active]; metoprolol tartrate 50 mg Oral tab 1 tab 2 times per day [Active]; Neurontin 100 mg Oral cap 1 caps once daily [Active]; Norvasc 2.5 mg Oral tab 1 tab twice daily [Active]; prednisone 10 mg Oral tab once daily [Active]; Prilosec 20 mg Oral cpDR 1 cap once daily [Active]; Prozac 20 mg Oral cap 1 cap once daily [Active]; risedronate 35 mg Oral tab 1 tab once wkly [Active]; Spiriva with HandiHaler 18 mcg inhalation CpDv 1 cap once daily [Active]; - PMHx: 14:44 Hypertension; Rheumatoid Arthritis; sg - Immunization history:: Adult Immunizations up to date. - Social history:: Smoking status: Patient/guardian denies using tobacco. - Ebola Screening: : No symptoms or risks identified at this time. - Family history:: not pertinent. - Hospitalizations: : No recent hospitalization is reported. Screenin:00 Abuse screen: Denies threats or abuse. Denies injuries from another. Nutritional sg screening: No deficits noted. Tuberculosis screening: No symptoms or risk factors identified. Never had TB. Fall Risk None identified. Assessment: 13:00 General: Appears in no apparent distress. comfortable, well groomed, well developed, sg well nourished, Behavior is calm, cooperative, appropriate for age. Pain: Complains of pain in arthritis in my joints, just hurt everywhere really. Neuro: Level of Consciousness is awake, alert, obeys commands, Oriented to person, place, time, [employer] Sales Representative are equal bilaterally Speech is normal, Facial symmetry appears normal. Cardiovascular: Patient's skin is warm and dry. Chest pain is denied. Respiratory: Respiratory effort is even, unlabored, Respiratory pattern is regular, symmetrical. GI: Abdomen is round non-distended, obese, Reports decreased appetite for several months Patient currently denies tolerance of fluids, tolerance of food. : No signs and/or symptoms were reported regarding the genitourinary system. EENT: No signs and/or symptoms were reported regarding the EENT system. Derm: Skin is intact, is healthy with good turgor, Skin is dry, Skin is normal, Skin temperature is warm. Musculoskeletal: Circulation, motion, and sensation intact. Range of motion: intact in all extremities, Swelling present in dorsal aspect of left forearm and left wrist. 16:38 Reassessment: Patient appears in no apparent distress at this time. at bedside sg evaluating pt at this time. 16:49 Reassessment: Patient appears in no apparent distress at this time. pt updated on POC sg and room assignment to 426, nurse unavailable at this time, instructed to call back, pt and pt family updated on delay, stated understanding, awaiting call back time. Vital Signs: 12:59 Pulse 111; Resp 26; Temp 99.7; Pulse Ox 99% on R/A; sg 12:59 Weight 120.2 kg (R); sg 13:10 BP 144 / 66; sg 14:33 BP 148 / 62; Pulse 107; Resp 21; Pulse Ox 99% on R/A; sg 17:00 BP 152 / 70; Pulse 102; Resp 20; Temp 99.2; Pulse Ox 100% on R/A; Pain 4/10; sg ED Course: 12:57 Patient arrived in ED. sg 12:57 Talha Carranza MD is Attending Physician. rn 12:59 Triage completed. sg 13:00 Patient has correct armband on for positive identification. Bed in low position. Call sg light in reach. Side rails up X2. Pulse ox on. NIBP on. Warm blanket given. 13:00 Arm band placed on. sg 13:19 Lawrence Huertas, RN is Primary Nurse. ss 13:25 Initial lab(s) drawn, by nh, sent to lab. First set of blood cultures drawn. Inserted em1 saline lock: 22 gauge in right forearm, using aseptic technique. Blood collected. 13:45 Second set of blood cultures drawn. em1 14:03 EKG done, by civil engineering technician. reviewed by Talha Carranza MD. at1 14:09 XRAY Chest (1 view) In Process Unspecified. EDMS 15:31 Eliza Levy MD is Hospitalizing Provider. rn 15:42 XRAY Wrist LEFT 3 view In Process Unspecified. EDMS 16:43 No provider procedures requiring assistance completed. sg 16:46 Patient admitted, IV remains in place. intact, No redness/swelling at site. sg Administered Medications: 13:25 Drug: D50W 50 ml Route: IVP; Site: right wrist; sg 14:00 Follow up: Response: No adverse reaction; Blood sugar is elevated sg 13:28 Drug: NS 0.9% 500 ml Route: IV; Rate: bolus; Site: right wrist; sg 14:31 Follow up: Response: No adverse reaction; IV Status: Completed infusion; IV Intake: sg 500ml 17:17 Drug: Decadron - Dexamethasone 10 mg Route: IVP; Site: right wrist; sg 17:40 Follow up: Response: No adverse reaction sg 17:17 Drug: vancoMYCIN 1 grams Route: IVPB; Infused Over: 2 hrs; Site: right wrist; sg 19:22 Follow up: Response: No adverse reaction; IV Status: Infusion continued upon admission sg Intake: 14:31 IV: 500ml; Total: 500ml. sg Outcome: 15:31 Decision to Hospitalize by Provider. rn 17:00 Admitted to Med/surg accompanied by tech, via stretcher, room 426, with chart, Report sg called to Felicity BRODY 17:00 Condition: stable 17:00 Instructed on the need for admit, safety practices, Demonstrated understanding of instructions. 17:17 Patient left the ED. sg Signatures: Dispatcher [employer] EDLawrence Ziegler RN RN sg Nieto, Roman, MD MD rn Martinez, Stas em1 Diamond Munson RN RN ss Gonzales, Amanda, maintenance service technician EKG Tat1 Corrections: (The following items were deleted from the chart) 19:24 13:00 Musculoskeletal: No signs and/or symptoms reported regarding the musculoskeletal sg system. sg
--- NOTE | 2018-07-19 15:32 | EDPHYS ---
Physician Documentation [facility] Name: Yanelis Hodge Age: 77 yrs Sex: Female : 1940 Arrival Date: 07/19/2018 Time: 12:57 Bed 2 Private MD: ED Physician Talha Carranza HPI: 07/19 13:07 This 77 yrs old Black Female presents to ER via EMS with complaints of Decreased rn Appetite, Cold Symptoms, Hand Swelling. 13:07 The patient or guardian reports cough. Onset: The symptoms/episode began/occurred 1 rn week(s) ago. Severity of symptoms: At their worst the symptoms were moderate, in the emergency department the symptoms are unchanged. Modifying factors: The symptoms are alleviated by nothing, the symptoms are aggravated by nothing. The patient has experienced a previous episode. Reports cough, congestion, sinus pressure, for 1 week, slowly getting worse, + sob, + generalized weakness, only able to go to bathroom and back, + fever and muscle aches, + nausea, no abd pain/vomiting/diarrhea. REports hx of gout and left wrist pain for 1 week as well, denies trauma. . Historical: - Allergies: 13:01 No Known Allergies; sg - Home Meds: 14:44 Actonel 35 mg Oral tab 1 tab once wkly [Active]; Drisdol 50,000 unit Oral cap 1 cap sg once wkly [Active]; gabapentin 100 mg Oral cap twice a day [Active]; Hematinic Plus Vit/Minerals 106 mg iron- 1 mg Oral tab 1 tab once daily [Active]; Hemocyte-Plus 106 mg iron- 1 mg Oral cap 1 cap once daily [Active]; Lopid 600 mg Oral tab 1 tab 2 times per day [Active]; metoprolol tartrate 50 mg Oral tab 1 tab 2 times per day [Active]; Neurontin 100 mg Oral cap 1 caps once daily [Active]; Norvasc 2.5 mg Oral tab 1 tab twice daily [Active]; prednisone 10 mg Oral tab once daily [Active]; Prilosec 20 mg Oral cpDR 1 cap once daily [Active]; Prozac 20 mg Oral cap 1 cap once daily [Active]; risedronate 35 mg Oral tab 1 tab once wkly [Active]; Spiriva with HandiHaler 18 mcg inhalation CpDv 1 cap once daily [Active]; - PMHx: 14:44 Hypertension; Rheumatoid Arthritis; sg - Immunization history:: Adult Immunizations up to date. - Social history:: Smoking status: Patient/guardian denies using tobacco. - Ebola Screening: : No symptoms or risks identified at this time. - Family history:: not pertinent. - Hospitalizations: : No recent hospitalization is reported. ROS: 13:07 Constitutional: + fever Eyes: Negative for injury, pain, redness, and discharge, rn placement: Negative for chest pain, palpitations, and edema, Respiratory: + cough and sob Abdomen/GI: + nausea Back: Negative for injury and pain, MS/Extremity: + left wrist pain Skin: Negative for injury, rash, and discoloration, Neuro: + generalized weakness Exam: 13:10 Constitutional: This is a well developed, well nourished patient who is awake, alert rn Head/Face: Normocephalic, atraumatic. Eyes: Pupils equal round and reactive to light, extra-ocular motions intact. Lids and lashes normal. Conjunctiva and sclera are non-icteric and not injected. Cornea within normal limits. Periorbital areas with no swelling, redness, or edema. ENT: dry MM Neck: Trachea midline, no thyromegaly or masses palpated, and no cervical lymphadenopathy. Supple, full range of motion without nuchal rigidity, or vertebral point tenderness. No Meningismus. Cardiovascular: tachycardic, regular, no murmur Respiratory: + mild tachypnea, no retractions, diminished breath sounds bilaterally Abdomen/GI: soft, non-tender Skin: Warm, dry MS/ Extremity: Pulses equal, no cyanosis. Neurovascular intact. + left wrist with mild swelling/warmth/painful ROM. Neuro: Awake and alert, GCS 15, oriented to person, place, time, and situation. Cranial nerves II-XII grossly intact. Motor strength 4/5 in all extremities. Sensory grossly intact. Vital Signs: 12:59 Pulse 111; Resp 26; Temp 99.7; Pulse Ox 99% on R/A; sg 12:59 Weight 120.2 kg (R); sg 13:10 BP 144 / 66; sg 14:33 BP 148 / 62; Pulse 107; Resp 21; Pulse Ox 99% on R/A; sg 17:00 BP 152 / 70; Pulse 102; Resp 20; Temp 99.2; Pulse Ox 100% on R/A; Pain 4/10; sg MDM: 12:57 Patient medically screened. rn 14:56 ED course: COnsulted Dr. Collins regarding left wrist, for evaluation and possible rn arthrocentesis, states will eval patient. . 15:30 Differential Diagnosis: Viral Syndrome Pneumonia Other cellulitis, inflammatory rn arthritis of left wrist, gout, septic arthritis left wrist. Data reviewed: vital signs, nurses notes, lab test result(s), radiologic studies, plain films, and as a result, I will admit patient. Counseling: I had a detailed discussion with the patient and/or guardian regarding: the historical points, exam findings, and any diagnostic results supporting the discharge/admit diagnosis, lab results, radiology results, the need for further work-up and treatment in the hospital. Response to treatment: the patient's symptoms have mildly improved after treatment, and as a result, I will admit patient. 16:53 ED course: Evaluated in ER by Dr. Collins, agrees more inflammatory, xray shows arthritic rn changes, is ok with steroids +-abx and admission to Dr. Levy, will follow along. Does not recommend arthrocentesis at this point.. 07/19 13:07 Order name: CBC with Diff; Complete Time: 14:34 rn 07/19 13:07 Order name: Basic Metabolic Panel; Complete Time: 14:34 rn 07/19 13:07 Order name: Urine Culture rn 07/19 13:07 Order name: Blood Culture Adult (2) rn 07/19 13:07 Order name: Procalcitonin; Complete Time: 14:34 rn 07/19 13:07 Order name: EKG; Complete Time: 13:08 rn 07/19 13:07 Order name: XRAY Chest (1 view); Complete Time: 14:34 rn 07/19 13:07 Order name: Flu; Complete Time: 14:34 rn 07/19 14:58 Order name: XRAY Wrist LEFT 3 view rn 07/19 13:07 Order name: IV Start; Complete Time: 14:03 rn 07/19 13:07 Order name: Urine Dipstick-Ancillary (obtain specimen); Complete Time: 14:32 rn 07/19 13:07 Order name: EKG - Nurse/Tech; Complete Time: 14:45 rn Administered Medications: 13:25 Drug: D50W 50 ml Route: IVP; Site: right wrist; sg 14:00 Follow up: Response: No adverse reaction; Blood sugar is elevated sg 13:28 Drug: NS 0.9% 500 ml Route: IV; Rate: bolus; Site: right wrist; sg 14:31 Follow up: Response: No adverse reaction; IV Status: Completed infusion; IV Intake: sg 500ml 17:17 Drug: Decadron - Dexamethasone 10 mg Route: IVP; Site: right wrist; sg 17:40 Follow up: Response: No adverse reaction sg 17:17 Drug: vancoMYCIN 1 grams Route: IVPB; Infused Over: 2 hrs; Site: right wrist; sg 19:22 Follow up: Response: No adverse reaction; IV Status: Infusion continued upon admission sg Disposition: 07/19/18 15:31 Hospitalization ordered by Eliza Levy for Inpatient Admission. Preliminary diagnosis are Pain in left wrist, Acute upper respiratory infection, unspecified, Weakness, Dehydration. - Bed requested for Telemetry/MedSurg (Inpatient). - Status is Inpatient Admission. sg - Condition is Stable. - Problem is new. - Symptoms have improved. UTI on Admission? No Signatures: Dispatcher [employer] EDJhoana Preston RN RN dw Gay, Steven, RN RN sg Nieto, Roman, MD MD poultry barn manager: (The following items were deleted from the chart) 13:11 13:07 Constitutional: Negative for fever, chills, and weight loss, Eyes: Negative for rn injury, pain, redness, and discharge, Cardiovascular: Negative for chest pain, palpitations, and edema, Respiratory: Negative for shortness of breath, cough, wheezing, and pleuritic chest pain, Abdomen/GI: Negative for abdominal pain, nausea, vomiting, diarrhea, and constipation, MS/Extremity: Negative for injury and deformity, Skin: Negative for injury, rash, and discoloration, Neuro: Negative for headache, weakness, numbness, tingling, and seizure, rn 14:51 13:08 UA MICROSCOPIC+U.LAB.BRZ ordered. EDNC EDMS 14:51 14:45 UA MICROSCOPIC+U.LAB.BRZ reviewed. rn EDMS 16:38 15:31 Hospitalization Ordered by A Cam LEIVA for Inpatient Admission. Preliminary dw diagnosis is Pain in left wrist; Acute upper respiratory infection, unspecified; Weakness; Dehydration. Bed requested for Telemetry/MedSurg (Inpatient). Status is Inpatient Admission. Condition is Stable. Problem is new. Symptoms have improved. UTI on Admission? No. rn 17:17 16:38 07/19/2018 15:31 Hospitalization Ordered by A Cam LEIVA for Inpatient Admission. sg Preliminary diagnosis is Pain in left wrist; Acute upper respiratory infection, unspecified; Weakness; Dehydration. Bed requested for Telemetry/MedSurg (Inpatient). Status is Inpatient Admission. Condition is Stable. Problem is new. Symptoms have improved. UTI on Admission? No. dw
--- NOTE | 2018-07-19 15:33 | EKG ---
Test Date: 2018-07-19 Test Time: 13:57:30 Railway Patrol Officer: ED MEASUREMENT RESULTS: Intervals: Rate: 110 MD: 166 QRSD: 74 QT: 348 QTc: 470 Fieldon: P: 46 MD: 166 QRS: 0 T: 46 INTERPRETIVE STATEMENTS: Sinus tachycardia with premature atrial complexes Minimal voltage criteria for LVH, may be normal variant Borderline ECG Compared to ECG 01/28/2018 14:48:44 Atrial premature complex(es) now present Sinus rhythm no longer present Electronically Signed On 07-19-18 15:33:03 CDT by Aristides Valentine
[2018-07-19] MEDS ORDERED: DEXAMETHASONE 10 MG/ML VIAL ONE (17:14)
[2018-07-19] MEDS ORDERED: VANCOMYCIN 1 GM/250 ML BAG ONE (17:15)
[2018-07-19] MEDS ORDERED: MORPHINE 4 MG/ML SYR IV PRN (17:38)
[2018-07-19] MEDS ORDERED: ONDANSETRON 4 MG/2 ML VIAL IV PRN (17:38)
[2018-07-19] MEDS ORDERED: ACETAMINOPHEN 500 MG TAB PO PRN (17:38)
--- NOTE | 2018-07-19 18:03 | RAD REPORT ---
EXAM DESCRIPTION: RAD - Wrist Left 3 View - 07/19/2018 3:42 pm CLINICAL HISTORY: Hand and wrist pain COMPARISON: None. FINDINGS: No acute fracture change confirmed on this study. Patient has advanced degenerative change at the wrist joint. There is significant radiocarpal joint space narrowing. There degenerative byrne es advanced at each carpal bone articulation. No pathologic bone process. There is no dislocation or periosteal reaction noted. Patient also has advanced degenerative change at the second and third MCP joints. There is bone loss at the third metatarsal head. No suspicious soft tissue calcifications. No air or foreign body. IMPRESSION: Severe degenerative change involving all carpal bones and the radiocarpal joint space. Severe degenerative change at the second and third MCP joints with significant but less pronounced de generative change at the first and fifth MCP joints. No fracture or acute bone process identifiable.
[2018-07-19] MEDS: NA CHLORIDE 0.9% 1,000 ML IV SCH (18:19)
[2018-07-19] MEDS ORDERED: INFLUENZA VACCINE (for 3y+) 0.5 ML DOSE IMVAC ONE (20:00)
[2018-07-19 20:02] VITALS: BMI 46.9
[2018-07-19 20:23] VITALS: O2SAT 96
--- NOTE | 2018-07-20 02:34 | CON ---
Date of Consultation: 07/19/2018 Reason For Consultation: Left wrist pain and swelling. History Of Present Illness: Ms. Hodge is a 77-year-old female who was brought into the emergency r oom today for decreased appetite, cold symptoms, as well as left hand and wrist swelling. She report s history of gout and rheumatoid arthritis with similar episodes of hand and wrist swelling in the ga st. She reports pain with range of motion of her left hand and wrist at this time. She states in th e past that pain and swelling resolved with time as well as iced and supportive care. She does repor t also history of cough, congestion, subjective fever, muscle aches. Review of Systems: As above, otherwise negative. Past Medical History: Includes hypertension, rheumatoid arthritis, and gout. Medications: Per home reconciliation. Allergies: NO KNOWN DRUG ALLERGIES. Physical Examination: General: No apparent distress. HEENT: Normocephalic, atraumatic. Neck: Supple. Cardiovascular: Brisk cap refill to all digits. Chest: Nonlabored breathing. Abdomen: Nondistended. Psychiatric: Responsive to exam. Musculoskeletal: Left upper extremity, she has global swelling of her hand and wrist. She has multi ple Otto as well as Heberden nodes on her hand, with some deformity of her hand IP joint as well as MCP joints consistent with rheumatoid arthritis. No significant erythema of the left hand or wris t. Pain with range of motion of her left wrist. Sensation grossly intact throughout her left hand. X-rays: X-rays of the left wrist demonstrate severe arthritic changes of all carpal bones and also r adiocarpal joints placed. Also severe degenerative changes of the second and third MCP joints as wel l as the first and fifth. No obvious fractures or dislocations. No acute bone process identifiable. 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 I discussed with the patient and her family her diag nosis as well as treatment plan. I do not recommend surgical intervention. At this time, we recomme nd treatment with anti-inflammatories and possible use of steroids. The patient will be admitted to the floor under the care of Dr. Levy. I will continue to follow the patient. CV/MODL Voice ID: [id number] Report ID: [id number]
[2018-07-20] MEDS: NA CHLORIDE 0.9% 1,000 ML IV SCH (03:47)
[2018-07-20 04:54] LABS: Absolute Monocytes 0.1 K/uL (0.1-1.3); Absolute Neutrophil 4.9 K/uL (1.8-8.0); Basophils % 0.5 % (0-1.3); Lymphocytes % 16.7 % (15.3-44.8); MCH 34.7 pg (27.0-35.0); MCV 103.5 fL (80-100); MPV 10.1 fL (7.6-11.3); Monocytes % 2.2 % (3.3-12.3); RBC Red Blood Cell Count 3.29 M/uL (3.86-4.86)
[2018-07-20 05:07] LABS: Potassium 4.7 mmol/L (3.5-5.1)
[2018-07-20 08:09] VITALS: BP 186/98
[2018-07-20] MEDS ORDERED: ALBUTEROL INHALER 60 PUFF/8 GM IH SCH (09:00)
[2018-07-20] MEDS ORDERED: FLUOXETINE 20 MG CAP PO SCH (09:00)
[2018-07-20] MEDS ORDERED: LOSARTAN/HCTZ 50-12.5 PO SCH (09:00)
[2018-07-20] MEDS ORDERED: METOPROLOL TAR 50 MG TAB PO SCH (09:00)
[2018-07-20] MEDS ORDERED: predniSONE 10 MG TAB PO SCH (09:00)
[2018-07-20 09:02] VITALS: TEMP 97.7
[2018-07-20] MEDS ORDERED: FAMOTIDINE 20 MG TAB PO SCH (21:00)
--- NOTE | 2018-08-02 03:48 | DS ---
Date of Discharge: 07/20/2018 Disposition: Discharged to go home. Physical Examination: HEENT: Unremarkable. Lungs: Clear to auscultation. Heart: Sounds normal. Abdomen: Soft. Bowel sounds normal. No guarding, rigidity, tenderness, or distention. Extremities: No leg edema. Left wrist examination shows significant improvement in the synovial swe lling of the left wrist. Laboratory Data: White count today 6.1, hemoglobin 11.4, platelets 166. Sodium 141, potassium 4.7, chloride 109, bicarb 21, BUN 11, creatinine 1.1, glucose 125. Blood culture remains negative. Discharge Diagnoses: 1.Rheumatoid arthritis. 2.Osteoarthritis, multiple sites. 3.Anemia. 4.Hypertension. 5.Hyperlipidemia. 6.Gastroesophageal reflux disease. 7.Fatigue. 8.Pulmonary hypertension. 9.Glucocorticoid insufficiency. Discharge Medications And Instructions: 1.Continue all prior home medication except change prednisone 10 mg, patient to take 3 tablets by mo uth p.o. daily. 2.Follow up at my office in 1 week. Hospital Course: This is a 77-year-old female patient with history of rheumatoid arthritis; glucocor ticoid insufficiency, on chronic steroid therapy; came into emergency room with complaints of left wr ist swelling and pain. Please see dictated H and P for more information. After patient was evaluate d in the ER, she was admitted to the hospital under my service. IV steroid was given. Orthopedic co nsultation was obtained from Dr. Collins and the patient did not have any evidence of septic arthritis. What she had was flare-up of rheumatoid arthritis. It was treated with steroid and she has responde d very well, and her pain and swelling has significantly improved overnight. We will go ahead and di yvetterge her to go home and I will see her on outpatient basis for followup. SALO/MODL Voice ID: [id number] Report ID: [id number]
--- NOTE | 2018-08-02 04:03 | HP ---
Date of Admission: 07/19/2018 Chief Complaint: Left wrist and hand pain and swelling. History Of Present Illness: This is a 77-year-old female patient with history of osteoarthritis and rheumatoid arthritis on chronic steroid therapy with joint deformity, came into emergency room with 2 days history of left wrist and left hand pain and swelling. She denies any fall or injury. No feve r, no chills. She takes her medications regularly and came into emergency room with 2 days history o f this worsening pain, swelling. After she was evaluated in the ER, she was given empiric antibiotic by ER physician and IV Decadron was given, and orthopedic consultation was obtained from Dr. Collins. Dr. Collins did evaluate her and he did not have any concern about any infectious etiology at this point . When I saw her during evening time for the admission, she was already feeling somewhat better comp ared to earlier this morning. Allergies: NO KNOWN ALLERGIES. Medications: List reviewed. Review of Systems: Musculoskeletal: As mentioned above. All other systems reviewed and negative. Social History: Negative for smoking, alcohol use. Family History: Sister of brain tumor. Mother of breast cancer. Mother also had diabetes . Father of jaundice. Past Surgical History: Cholecystectomy, partial amputation of right hand finger. Past Medical History: Hypertension, osteoarthritis at multiple sites, rheumatoid arthritis, hyperlip idemia, anemia, gastroesophageal reflux disease, depression, fatigue, pulmonary hypertension, metabol ic acidosis, Clostridium difficile colitis, glucocorticoid insufficiency, and hypoglycemia. Physical Examination: Vital Signs: When she came into emergency room, her initial vital signs blood pressure was 144/66, p ulse 111, respiratory rate 26, temperature 99.7, oxygen saturation 99%. Weight 120.2 kg. General: Awake, alert, oriented, not in distress. HEENT: Head atraumatic, normocephalic. Conjunctivae nonerythematous. Sclerae white. Mouth, no thr ush or edema noted. Ears/Nose, no mass, lesion, discharge noted. Neck: Supple. No JVD, lymph nodes, bruit, thyromegaly noted. Lungs: Bilateral good equal air entry. Clear to auscultation. No rhonchi. No rales. Heart: Normal heart sounds, no murmur or gallop. Abdomen: Soft, bowel sounds normal. No guarding, rigidity, tenderness, mass, hepatosplenomegaly, dis tention, or bruit noted. Extremities: No leg edema. No calf tenderness. Skin: No rash, ulcer, cellulitis. Lymphatics: No lymph node enlargement in neck, supraclavicular, infraclavicular region. Neuro: No focal neurological deficit. Chest: Unremarkable. External Genitalia: Deferred. Rectal: Deferred. Musculoskeletal: Patient has chronic deformity of both hands which is unchanged. Left wrist has sig nificant synovial swelling. No redness. No tenderness. No open wound. Labs: Wrist x-ray shows degenerative changes. No acute fractures. Chest x-ray, no acute cardiopulm onary abnormality. Electrocardiogram: Sinus tachycardia with premature atrial complex. White count 6.5, hemoglobin 11.1, platelets 196. Sodium 139, potassium 4.3, chloride 107, bicarb 23, BUN 12, cr eatinine 1.30, glucose 101, procalcitonin 17.96. Influenza A and B negative. Impression: 1.Rheumatoid arthritis. 2.Osteoarthritis, multiple sites. 3.Hypertension. 4.Hyperlipidemia. 5.Anemia. 6.Gastroesophageal reflux disease. 7.Depression. 8.Pulmonary hypertension. 9.Glucocorticoid insufficiency. Plan: Admit the patient to hospital for further evaluation and management of this problem. We will go ahead and continue home medications per order. I will see her tomorrow for followup. At this poi nt, it does not look like the patient has septic arthritis, but it appears that what she has is flare -up of rheumatoid arthritis problem and we will treat it with steroid per order. I will see her yvan rrow morning for followup. Depending on her condition, we will decide if we can possibly discharge h er to go home tomorrow or not. SALO/JILL Voice ID: [id number]
== END 2018-07-20 12:12 | disposition home or self-care (01) ==
LOC: ER 12:52 → ERHOLD 15:33 → INTOOBSV 15:33 → 4TH 17:01
PROVIDERS: ADMIT Internal Medicine; ATTEND Internal Medicine
DX: M06.9 Rheumatoid arthritis, unspecified (principal); M19.90 Unspecified osteoarthritis, unspecified site; I10 Essential (primary) hypertension; E78.5 Hyperlipidemia, unspecified; D64.9 Anemia, unspecified; K21.9 Gastro-esophageal reflux disease without esophagitis; F32.9 Major depressive disorder, single episode, unspecified; Z79.52 Long term (current) use of systemic steroids; I27.20 Pulmonary hypertension, unspecified
CPT/HCPCS: 36415; 71045; 73110; 80048 ×2; 84145; 85025 ×2; 87040 ×2; 87086; 87088; 87804 ×2; 93005; 96361; 96365; 96366; 96375; 99285; G0378 ×2; J1100; J3370; J7030 ×3; J7512

== ENCOUNTER 2019-03-31 09:55 | Inpatient (IN) | payer OTHER ==
--- NOTE | 2019-03-31 10:28 | RAD REPORT ---
EXAM DESCRIPTION: RAD - Chest Single View - 03/31/2019 10:15 am CLINICAL HISTORY: DYSPNEA Chest pain. COMPARISON: Chest Single View dated 07/19/2018; Chest Single View dated 01/28/2018; Chest Single View dated 12/25/2017; Chest Single View dated 12/23/2017 FINDINGS: Portable technique limits examination quality. The lungs are grossly clear. The heart is normal in size. No displaced fractures. IMPRESSION: No acute intrathoracic process suspected.
[2019-03-31] MEDS ORDERED: ALBUTEROL 2.5 MG/3 ML NEB SOL ONE (10:49)
[2019-03-31] MEDS ORDERED: IPRATROPIUM BROM 0.5MG/2.5ML ONE (10:49)
[2019-03-31] MEDS ORDERED: METHYLPREDNISOLONE 125 MG INJ ONE (10:49)
[2019-03-31] MEDS ORDERED: D5 0.9 NS 1,000 ML IV ONE (10:50)
[2019-03-31] MEDS ORDERED: NA CHLORIDE 0.9% 1,000 ML ONE ×2 (10:50→14:45)
[2019-03-31 10:55] LABS: Absolute Lymphocytes (CBC) 3.5 K/uL (0.7-4.9); Basophils % 0.5 % (0-1.3); Eosinophils % 1.5 % (0-4.4); Hematocrit 34.4 % (36.0-45.0); MPV 9.8 fL (7.6-11.3); Monocytes % 11.4 % (3.3-12.3); RBC Red Blood Cell Count 3.26 M/uL (3.86-4.86)
[2019-03-31 10:57] LABS: Bilirubin Direct 0.3 mg/dL (0-0.2); Bilirubin Total 0.8 mg/dL (0.2-1.0); Potassium 3.6 mmol/L (3.5-5.1)
[2019-03-31 10:58] LABS: Albumin 2.4 g/dL (3.4-5.0)
[2019-03-31] MEDS ORDERED: AZITHROMYCIN IV 500 MG in NA CHLORIDE 0.9% 250 ML IVPB ONE (11:00)
[2019-03-31 11:11] LABS: Blood Morphology Comment NOTED (NOT SEEN); Macrocytosis 1+; Platelet Estimate ADEQ; Urine White Blood Cell Casts OK
[2019-03-31 11:18] LABS: Protime INR 1.05
--- NOTE | 2019-03-31 11:38 | ER ---
Nurse's Notes [facility] Name: Yanelis Hodge Age: 78 yrs Sex: Female : 1940 Arrival Date: 03/31/2019 Time: 09:56 Bed 4 Private MD: Diagnosis: Acute kidney failure;Urinary tract infection, site not specified Presentation: 03/31 09:56 Transition of care: patient was not received from another setting of care. Onset of aa5 symptoms was March 2019. Risk Assessment: Do you want to hurt yourself or someone else? Unable to obtain. Care prior to arrival: Glucose check: 70. 09:56 Method Of Arrival: EMS: [facility] aa5 09:56 Acuity: SAM 2 aa5 09:56 Presenting complaint: EMS states: Pt's family reported generalized weakness, not eating aa5 much, and congestion x 2 weeks. Pt's family reported she has not been walking and she normally does. EMS reports pt's O2 sat was 82% RA and BP 82/57 upon their arrival. EMS reports O2 sat increased to 92% on a non-rebreather mask. 09:56 Initial Sepsis Screen: Does the patient meet any 2 criteria? Systolic BP < 90 mmHg. aa5 Altered Mental Status. Yes Does the patient have a suspected source of infection? Yes: Other: wet cough. Historical: - Allergies: 09:58 No Known Allergies; aa5 - PMHx: 09:58 Hypertension; Rheumatoid Arthritis; CHF; aa5 - Ebola Screening: : No symptoms or risks identified at this time. Screenin:25 Abuse screen: Denies threats or abuse. Nutritional screening: No deficits noted. aa5 Tuberculosis screening: No symptoms or risk factors identified. Fall Risk Fall in past 12 months (25 points). IV access (20 points). Mental Status- Overestimates/Forgets Limitations (15 pts.). Total Bailey Fall Scale indicates High Risk Score (45 or more points). Fall prevention measures have been instituted. Side Rails Up X 2 Placed Close to Nursing Station. Assessment: 09:58 General: Appears comfortable, Behavior is calm, cooperative. Pain: Denies pain. Neuro: aa5 Level of Consciousness is awake, obeys commands, confused, Oriented to person, Food Consultant are weak bilaterally Moves all extremities. Speech is normal, Facial symmetry appears normal, Pupils are PERRLA, Reports generalized weakness . Cardiovascular: Heart tones S1 S2 present Edema is absent. Rhythm is regular. Respiratory: Airway is patent Respiratory effort is even, unlabored, Respiratory pattern is regular, symmetrical, Breath sounds with wheezes bilaterally. GI: Abdomen is round Bowel sounds present X 4 quads. Abd is soft and non tender X 4 quads. : No signs and/or symptoms were reported regarding the genitourinary system. EENT: No signs and/or symptoms were reported regarding the EENT system. Derm: Skin is dry, Skin is normal, Skin temperature is warm. Musculoskeletal: Range of motion: intact in all extremities, Pt reports she normally is ambulatory with a walker. 10:37 Neuro: Level of Consciousness is awake, alert, obeys commands, Oriented to person, aa5 place, time, situation, Food Consultant are weak bilaterally Moves all extremities. Speech is normal, Facial symmetry appears normal, Pupils are PERRLA. Respiratory: Airway is patent Respiratory effort is even, unlabored, Respiratory pattern is regular, symmetrical, Breath sounds with wheezes bilaterally. Derm: Skin is dry, Skin is normal, Skin temperature is warm. 10:37 Reassessment: Pt's family at bedside at this time. aa5 11:46 Neuro: Level of Consciousness is awake, alert, obeys commands, Oriented to person, aa5 place, time, situation. Respiratory: Airway is patent Respiratory effort is even, unlabored, Respiratory pattern is regular, symmetrical. Derm: Skin is dry, Skin is normal, Skin temperature is warm. 11:46 Pain: Denies pain. aa5 12:00 Reassessment: Lab at bedside collecting new labs ordered by AKASH. aa5 12:15 Reassessment: Pt resting in bed with eyes close. Awakens easily to verbal stimuli. aa5 Wheezing diminished bilaterally. Pt reports SOB has improved. Equal unlabored respirations, skin is normal/warm/dry. . 13:10 Reassessment: Pt to US via stretcher. Pt's family at bedside. Bolus paused. . Neuro: aa5 Level of Consciousness is awake, alert, obeys commands, Oriented to person, place, time, situation. Respiratory: Airway is patent Respiratory effort is even, unlabored, Respiratory pattern is regular, symmetrical. Derm: Skin is dry, Skin is normal, Skin temperature is warm. 13:10 Pain: Denies pain. aa5 14:03 Neuro: Level of Consciousness is awake, alert, obeys commands, Oriented to person, aa5 place, time, situation. Respiratory: Airway is patent Respiratory effort is even, unlabored, Respiratory pattern is regular, symmetrical. Respiratory: Breath sounds with wheezes bilaterally. Derm: Skin is dry, Skin is normal, Skin temperature is warm. 14:03 Pain: Denies pain. aa5 15:00 Neuro: Level of Consciousness is awake, alert, obeys commands, Oriented to person, aa5 place, time, situation. Respiratory: Airway is patent Respiratory effort is even, unlabored, Respiratory pattern is regular, symmetrical. Derm: Skin is dry, Skin is normal, Skin temperature is warm. 15:00 Pain: Denies pain. aa5 Vital Signs: 09:58 BP 98 / 66; Pulse 86; Resp 20 S; Temp 98.3(O); Pulse Ox 90% on Non-rebreather mask; aa5 Pain 0/10; 10:30 Weight 81 kg (M); aa5 10:37 BP 95 / 54; Pulse 82; Resp 20 S; Pulse Ox 96% on Nebulizer Mask; aa5 11:10 BP 129 / 67; Pulse 78; Resp 18 S; Pulse Ox 94% on 4 lpm NC; aa5 11:40 BP 146 / 96; Pulse 82; Resp 18 S; Temp 98.2(O); Pulse Ox 90% on 4 lpm NC; aa5 12:25 BP 125 / 63; Pulse 84; Resp 16 S; Pulse Ox 92% on 4 lpm NC; aa5 13:10 BP 111 / 62; Pulse 81; Resp 16 S; Pulse Ox 95% on 4 lpm NC; aa5 14:03 BP 110 / 83; Pulse 79; Resp 18 S; Pulse Ox 96% on 4 lpm NC; aa5 15:00 BP 119 / 86; Pulse 76; Resp 16 S; Temp 98.0(TE); Pulse Ox 96% on 4 lpm NC; aa5 ED Course: 09:56 Patient arrived in ED. aa5 09:56 Arm band placed on Patient placed in an exam room, on a stretcher. aa5 09:56 Patient has correct armband on for positive identification. Placed in gown. Bed in low aa5 position. Call light in reach. Side rails up X2. hall monitor on. Pulse ox on. NIBP on. 10:00 Triage completed. aa5 10:02 Jemal Louis PA is PHCP. jr8 10:02 Sherwin Miller MD is Attending Physician. jr8 10:03 EKG done, by hospital laboratory technician. reviewed by Jemal BUSTOS. sm3 10:05 Missed attempt(s): 22 gauge in left antecubital area. by Diamond Munson RN. Bleeding aa5 controlled, band aid applied, catheter tip intact. 10:12 X-ray completed. Portable x-ray completed in exam room. sw 10:14 Chest Single View XRAY In Process Unspecified. EDMS 10:15 Missed attempt(s): 22 gauge in right antecubital area. by Diamond Munson RN. Bleeding aa5 controlled, band aid applied, catheter tip intact. 10:15 First set of blood cultures drawn by me. aa5 10:25 Initial lab(s) drawn, by me, sent to lab. Inserted saline lock: 24 gauge in left upper aa5 arm, using aseptic technique. Blood collected. 10:25 Second set of blood cultures drawn by me. aa5 10:30 Inserted saline lock: 22 gauge in right hand, using aseptic technique. aa5 10:48 Amy Faye, MARY GRACE is Primary Nurse. aa5 11:30 Chiang cath inserted, using sterile technique, 16 Fr., by az, balloon inflated, to aa5 gravity drainage, urine specimen collected. 11:30 Urine collected: Chiang catheter specimen, chaparro colored, 55 cc returned, PA was aa5 notified. 11:30 No provider procedures requiring assistance completed. aa5 11:35 Eliza Levy MD is Hospitalizing Provider. jr8 15:00 Patient admitted, IV remains in place. aa5 Administered Medications: 10:37 Drug: NS 0.9% (30 ml/kg) 30 ml/kg Route: IV; Rate: bolus; Site: left upper arm; aa5 10:37 Follow up: Administered 1 L D5NS per PA VO. Remaining bolus will be NS per PA. aa5 12:00 Follow up: IV Intake: 1000ml ; D5NS bolus completed. NS bolus started at this time. aa5 14:30 Follow up: IV Status: Completed infusion; IV Intake: 1430ml ; NS 1430ml completed at aa5 this time 14:30 Follow up: PA was notified of slow flow of fluids at 1100. PA verbalized understanding. aa5 PA notified of completed bolus. 10:37 Drug: Albuterol - atroVENT (3:1) (2.5 mg - 0.5 mg) 3 ml Route: Nebulizer; aa5 10:55 Follow up: Response: No adverse reaction aa5 10:37 Drug: SOLU-Medrol 125 mg Route: IVP; Site: left upper arm; aa5 10:45 Follow up: Response: No adverse reaction aa5 11:46 Drug: Rocephin 1 grams Route: IV; Rate: calculated rate; Site: left upper arm; aa5 11:48 Follow up: IV Status: Completed infusion; IV Intake: 10ml aa5 12:00 Follow up: Response: No adverse reaction aa5 12:15 Drug: Zithromax 500 mg Route: IVPB; Infused Over: 1 hrs; Site: left upper arm; aa5 13:15 Follow up: Response: No adverse reaction; IV Status: Completed infusion; IV Intake: aa5 250ml Point of Care Testing: Blood Glucose: 10:04 Blood Glucose: 64 mg/dL; aa5 14:03 Blood Glucose: 222 mg/dL; aa5 Ranges: Intake: 11:48 IV: 10ml; Total: 10ml. aa5 12:00 IV: 1000ml; Total: 1010ml. aa5 13:15 IV: 250ml; Total: 1260ml. aa5 14:30 IV: 1430ml; Total: 2690ml. aa5 14:03 PA was notified aa5 Output: 14:03 Urine: 25ml (Chiang); Total: 25ml. aa5 14:03 PA was notified aa5 Outcome: 11:37 Decision to Hospitalize by Provider. jr8 15:00 Admitted to Tele accompanied by tech, via stretcher, with oxygen, with chart, Report aa5 called to MARY GRACE Ordoñez 15:00 Condition: stable 15:00 Instructed on the need for admit, Demonstrated understanding of instructions. 15:11 Patient left the ED. aa5 Signatures: Dispatcher [employer] EDAmy Canada RN RN aa5 Jemal Louis PA PA jr8 Priscilla Valentin Shakira 3 Corrections: (The following items were deleted from the chart) 15:43 13:20 BP 111 / 62; Pulse 81bpm; Resp 16bpm; Spontaneous; Pulse Ox 95% 4 lpm Nasal aa5 Cannula; aa5 15:44 11:40 BP 146 / 96; Pulse 82bpm; Resp 18bpm; Spontaneous; Pulse Ox 90% 4 lpm Nasal aa5 Cannula; aa5
--- NOTE | 2019-03-31 11:38 | EDPHYS ---
Physician Documentation [facility] Name: Yanelis Hodge Age: 78 yrs Sex: Female : 1940 Arrival Date: 03/31/2019 Time: 09:56 Bed 4 Private MD: ED Physician Sherwin Miller HPI: 03/31 11:17 This 78 yrs old Black Female presents to ER via EMS with complaints of General Weakness.jr8 11:17 . jr8 11:31 Onset: The symptoms/episode began/occurred gradually, 2 week(s) ago, and became worse. jr8 Severity of symptoms: At their worst the symptoms were moderate in the emergency department the symptoms are unchanged. The patient has not experienced similar symptoms in the past. The patient has not recently seen a physician. Patient stated that she has not been feeling well for the past couple of weeks. Stated that she has had increased fatigue and malaise. Noted cough that is more productive over the past week. Also noticed decreased urination and now no urine for past 2 days. Historical: - Allergies: 09:58 No Known Allergies; aa5 - PMHx: 09:58 Hypertension; Rheumatoid Arthritis; CHF; aa5 - Ebola Screening: : No symptoms or risks identified at this time. ROS: 11:31 Eyes: Negative for injury, pain, redness, and discharge, ENT: Negative for injury, jr8 pain, and discharge, Neck: Negative for injury, pain, and swelling, Cardiovascular: Negative for chest pain, palpitations, and edema, Respiratory: Negative for shortness of breath, cough, wheezing, and pleuritic chest pain, Abdomen/GI: Negative for abdominal pain, nausea, vomiting, diarrhea, and constipation, Back: Negative for injury and pain, MS/Extremity: Negative for injury and deformity, Skin: Negative for injury, rash, and discoloration, Neuro: Negative for headache, weakness, numbness, tingling, and seizure. 11:31 Constitutional: Positive for fatigue, malaise, poor PO intake, Negative for body aches, chills, fever, weight loss. Exam: 11:31 Eyes: Pupils equal round and reactive to light, extra-ocular motions intact. Lids and jr8 lashes normal. Conjunctiva and sclera are non-icteric and not injected. Cornea within normal limits. Periorbital areas with no swelling, redness, or edema. ENT: Nares patent. No nasal discharge, no septal abnormalities noted. Tympanic membranes are normal and external auditory canals are clear. Oropharynx with no redness, swelling, or masses, exudates, or evidence of obstruction, uvula midline. Mucous membranes dry. Neck: Trachea midline, no thyromegaly or masses palpated, and no cervical lymphadenopathy. Supple, full range of motion without nuchal rigidity, or vertebral point tenderness. No Meningismus. Cardiovascular: Regular rate and rhythm with a normal S1 and S2. No gallops, murmurs, or rubs. Normal PMI, no JVD. No pulse deficits. Abdomen/GI: Soft, non-tender, with normal bowel sounds. No distension or tympany. No guarding or rebound. No evidence of tenderness throughout. Back: No spinal tenderness. No costovertebral tenderness. Full range of motion. Skin: Warm, dry with normal turgor. Normal color with no rashes, no lesions, and no evidence of cellulitis. MS/ Extremity: Pulses equal, no cyanosis. Neurovascular intact. Full, normal range of motion. Neuro: Awake and alert, GCS 15, oriented to person, place, time, and situation. Cranial nerves II-XII grossly intact. Motor strength 5/5 in all extremities. Sensory grossly intact. Cerebellar exam normal. 11:31 Respiratory: the patient does not display signs of respiratory distress, Respirations: normal, symetrical, no use of accessory muscles, no grunting, no evidence of nasal flaring, no prolonged exhalations, no pursed lip breathing, no retractions, no shallow respirations, no splinting, no tachypnea, Breath sounds: wheezing: expiratory that is mild, is heard diffusely. Vital Signs: 09:58 BP 98 / 66; Pulse 86; Resp 20 S; Temp 98.3(O); Pulse Ox 90% on Non-rebreather mask; aa5 Pain 0/10; 10:30 Weight 81 kg (M); aa5 10:37 BP 95 / 54; Pulse 82; Resp 20 S; Pulse Ox 96% on Nebulizer Mask; aa5 11:10 BP 129 / 67; Pulse 78; Resp 18 S; Pulse Ox 94% on 4 lpm NC; aa5 11:40 BP 146 / 96; Pulse 82; Resp 18 S; Temp 98.2(O); Pulse Ox 90% on 4 lpm NC; aa5 12:25 BP 125 / 63; Pulse 84; Resp 16 S; Pulse Ox 92% on 4 lpm NC; aa5 13:10 BP 111 / 62; Pulse 81; Resp 16 S; Pulse Ox 95% on 4 lpm NC; aa5 14:03 BP 110 / 83; Pulse 79; Resp 18 S; Pulse Ox 96% on 4 lpm NC; aa5 15:00 BP 119 / 86; Pulse 76; Resp 16 S; Temp 98.0(TE); Pulse Ox 96% on 4 lpm NC; aa5 MDM: 10:02 Patient medically screened. [facility] 11:34 Data reviewed: vital signs, nurses notes, lab test result(s), EKG, radiologic studies, [facility] plain films. Data interpreted: Pulse oximetry: on room air is 84 %. Interpretation: hypoxia. Counseling: I had a detailed discussion with the patient and/or guardian regarding: the historical points, exam findings, and any diagnostic results supporting the discharge/admit diagnosis, lab results, radiology results, the need for further work-up and treatment in the hospital. Physician consultation: A Cam LEIVA was called at 11:34, was contacted at 11:34, regarding admission, to the telemetry unit. and will see patient. 11:54 ED course: Dr. Baldwin consulted and will see patient in ED . 03/31 10:04 Order name: Basic Metabolic Panel [facility] 03/31 10:04 Order name: Blood Culture Adult (2) [facility] 03/31 10:04 Order name: CBC with Diff; Complete Time: 11:16 [facility] 03/31 10:04 Order name: CPK; Complete Time: 11:02 03/31 10:04 Order name: Lactate; Complete Time: 11:02 [facility] 03/31 10:04 Order name: LFT's; Complete Time: 11:02 [facility] 03/31 10:04 Order name: Procalcitonin; Complete Time: 11:56 03/31 10:04 Order name: Protime (+inr); Complete Time: 11:33 03/31 10:04 Order name: Ptt, Activated; Complete Time: 11:33 [facility] 03/31 10:04 Order name: Troponin (emerg Dept Use Only); Complete Time: 11:02 [facility] 03/31 10:04 Order name: Urine Microscopic Only; Complete Time: 12:35 [facility] 03/31 10:06 Order name: Basic Metabolic Panel; Complete Time: 11:02 [facility] 03/31 10:06 Order name: Blood Culture [facility] 03/31 11:02 Order name: Influenza Screen (a \T\ B); Complete Time: 12:35 [facility] 03/31 10:04 Order name: Chest Single View XRAY; Complete Time: 10:39 [facility] 03/31 11:13 Order name: CBC Smear Scan EDMT 03/31 11:42 Order name: Urine For Protein, Random; Complete Time: 12:35 [facility] 03/31 11:42 Order name: Urine Creatinine; Complete Time: 12:35 [facility] 03/31 11:43 Order name: CK; Complete Time: 12:48 [facility] 03/31 11:43 Order name: Uric Acid; Complete Time: 12:48 [facility] 03/31 11:43 Order name: Pth,Intact; Complete Time: 13:56 [facility] 03/31 11:47 Order name: Urine Dipstick--Ancillary (enter results); Complete Time: 12:35 dc 03/31 12:33 Order name: Urine Culture [facility] 03/31 12:58 Order name: DRAKE IFA Screen w/Reflex EDMT 03/31 12:59 Order name: Renal Ultrasound-Complete; Complete Time: 13:56 [facility] 03/31 10:04 Order name: Accucheck; Complete Time: 10:36 [facility] 03/31 10:04 Order name: Cardiac monitoring; Complete Time: 10:36 [facility] 03/31 10:04 Order name: EKG - Nurse/Tech; Complete Time: 10:36 [facility] 03/31 10:04 Order name: IV Saline Lock - Large Bore; Complete Time: 11:43 [facility] 03/31 10:04 Order name: Labs collected and sent; Complete Time: 11:44 [facility] 03/31 10:04 Order name: O2 Per Protocol; Complete Time: 10:36 [facility] 03/31 10:04 Order name: O2 Sat Monitoring; Complete Time: 10:37 [facility] 03/31 10:04 Order name: Urine Dipstick-Ancillary (obtain specimen); Complete Time: 11:44 [facility] 03/31 11:06 Order name: Chiang; Complete Time: 11:43 jr8 03/31 12:41 Order name: EKG Electrocardiogram; Complete Time: 12:41 EDMS 03/31 13:02 Order name: CONS Physician Consult EDMS Administered Medications: 10:37 Drug: NS 0.9% (30 ml/kg) 30 ml/kg Route: IV; Rate: bolus; Site: left upper arm; aa5 10:37 Follow up: Administered 1 L D5NS per PA VO. Remaining bolus will be NS per PA. aa5 12:00 Follow up: IV Intake: 1000ml ; D5NS bolus completed. NS bolus started at this time. aa5 14:30 Follow up: IV Status: Completed infusion; IV Intake: 1430ml ; NS 1430ml completed at aa5 this time 14:30 Follow up: PA was notified of slow flow of fluids at 1100. PA verbalized understanding. aa5 PA notified of completed bolus. 10:37 Drug: Albuterol - atroVENT (3:1) (2.5 mg - 0.5 mg) 3 ml Route: Nebulizer; aa5 10:55 Follow up: Response: No adverse reaction aa5 10:37 Drug: SOLU-Medrol 125 mg Route: IVP; Site: left upper arm; aa5 10:45 Follow up: Response: No adverse reaction aa5 11:46 Drug: Rocephin 1 grams Route: IV; Rate: calculated rate; Site: left upper arm; aa5 11:48 Follow up: IV Status: Completed infusion; IV Intake: 10ml aa5 12:00 Follow up: Response: No adverse reaction aa5 12:15 Drug: Zithromax 500 mg Route: IVPB; Infused Over: 1 hrs; Site: left upper arm; aa5 13:15 Follow up: Response: No adverse reaction; IV Status: Completed infusion; IV Intake: aa5 250ml Point of Care Testing: Blood Glucose: 10:04 Blood Glucose: 64 mg/dL; aa5 14:03 Blood Glucose: 222 mg/dL; aa5 Ranges: Critical Glucose Levels:Adult <50 mg/dl or >400 mg/dl <40 mg/dl or >180 mg/dl Disposition: 03/31/19 11:37 Hospitalization ordered by Eliza Levy for Inpatient Admission. Preliminary diagnosis are Acute kidney failure, Urinary tract infection, site not specified. - Bed requested for Telemetry/MedSurg (Inpatient). - Status is Inpatient Admission. aa5 - Condition is Fair. - Problem is new. - Symptoms have improved. UTI on Admission? Yes Addendum: 04/04/2019 09:00 Co-signature as Attending Physician, Sherwin Miller MD I agree with the assessment and c moreno plan of care. Signatures: Dispatcher [employer] [facility] Sherwin Miller MD MD cha Calderon, Audri, RN RN aa5 Jemal Louis PA PA jr8 Lamin Pedroza RN RN ja1 Corrections: (The following items were deleted from the chart) 03/31 12:33 11:37 Hospitalization Ordered by A Cam LEIVA for Inpatient Admission. Preliminary jr8 diagnosis is Acute kidney failure. Bed requested for Telemetry/MedSurg (Inpatient). Status is Inpatient Admission. Condition is Fair. Problem is new. Symptoms have improved. UTI on Admission? No. jr8 13:06 11:42 Rp Exam Complete+US.RAD.BRZ ordered. [facility] 13:54 12:33 03/31/2019 11:37 Hospitalization Ordered by A Cam LEIVA for Inpatient Admission. ja1 Preliminary diagnosis is Acute kidney failure; Urinary tract infection, site not specified. Bed requested for Telemetry/MedSurg (Inpatient). Status is Inpatient Admission. Condition is Fair. Problem is new. Symptoms have improved. UTI on Admission? Yes. jr8 15:11 13:54 03/31/2019 11:37 Hospitalization Ordered by A Cam LEIVA for Inpatient Admission. aa5 Preliminary diagnosis is Acute kidney failure; Urinary tract infection, site not specified. Bed requested for Telemetry/MedSurg (Inpatient). Status is Inpatient Admission. Condition is Fair. Problem is new. Symptoms have improved. UTI on Admission? Yes. ja1
[2019-03-31] MEDS ORDERED: CEFTRIAXONE/SWI 1gm 1 GM/10 ML SYR ONE (11:59)
[2019-03-31 12:10] LABS: Urine Blood 2+ (NEG); Urine Glucose NEGATIVE (NEG); Urine Protein TRACE (NEG)
[2019-03-31 12:31] LABS: Urine Bacteria 20-50 /HPF (<20); Urine Culture Reflex Order REFLEXED
[2019-03-31 12:35] LABS: Uric Acid 10.9 mg/dL (2.6-6.0)
--- NOTE | 2019-03-31 13:40 | RAD REPORT ---
EXAM DESCRIPTION: US - Renal Ultrasound-Complete - 03/31/2019 1:27 pm CLINICAL HISTORY: Acute kidney injury COMPARISON: December 2017 FINDINGS: The right kidney measures 9.4 x 3.8 x 3.3 cm. The left kidney measures 7.8 x 4.2 x 3.2 cm . Renal cortical thickness and echogenicity are normal. No hydronephrosis or suspicious renal mass. L eft renal parenchymal assessment is less optimal due to limited patient mobility adjacent bowel. Bladder is contracted around a Chiang catheter. IMPRESSION: No hydronephrosis or suspicious renal mass. No other significant findings.
[2019-03-31] MEDS ORDERED: ALBUTEROL PROAIR IH SCH (14:30)
[2019-03-31] MEDS ORDERED: NA CHLORIDE 0.9% 500 ML ONE (14:45)
[2019-03-31] MEDS ORDERED: NA CHLORIDE 0.9% 1,000 ML IV SCH (15:30)
[2019-03-31] MEDS ORDERED: ONDANSETRON 4 MG/2 ML VIAL IV PRN (15:37)
[2019-03-31] MEDS ORDERED: ACETAMINOPHEN 500 MG TAB PO PRN (15:37)
[2019-03-31] MEDS: METHYLPREDNISOLONE 40 MG INJ IV SCH (16:53)
[2019-03-31] MEDS ORDERED: PIPER/TAZO/NS 2.25gm 2.25 GM/50 ML BAG IVPB SCH (17:00)
[2019-04-01] MEDS: METHYLPREDNISOLONE 40 MG INJ IV SCH (01:45)
[2019-04-01 05:19] LABS: Absolute Lymphocytes (CBC) 1.2 K/uL (0.7-4.9); Basophils % 0.2 % (0-1.3); Hematocrit 34.6 % (36.0-45.0); Lymphocytes % 18.1 % (15.3-44.8); MPV 9.9 fL (7.6-11.3); Monocytes % 3.2 % (3.3-12.3); RBC Red Blood Cell Count 3.22 M/uL (3.86-4.86)
[2019-04-01 05:35] LABS: Potassium 3.5 mmol/L (3.5-5.1)
--- NOTE | 2019-04-01 06:05 | HP ---
Date of Admission: 03/31/2019 This is a 78 year old female, who is noncompliant with office appointments. Last time, she was at office was May of last year, and after that, she never came back to office. She was in the hospital in July 2018. After she left the hospital, she never returned to office for a followup appointment. She had scheduled appointments at the office, but never kept her appointments. I am not even so sure if she is taking her medications as prescribed. In any case today she ends up in emergency room with 2 weeks history of increasing generalized weakness. Says that she is feeling very weak, sleepy, and having some cough, congestion, and with worsening condition, she was brought into emergency room. After she was evaluated in the ER, she was admitted to the hospital with acute renal failure. I saw her in the hospital this evening, there was no family member with her at bedside. Allergies: NO KNOWN ALLERGIES. Medications: List reviewed, but I am not sure if she is taking those medications regularly or not. Review of Systems: Constitutional: As mentioned above. Respiratory: As mentioned above. Musculoskeletal: Chronic arthritis complaints. All other systems reviewed and negative. Social History: Negative for smoking or alcohol use. Family History: Sister with brain tumor, mother of breast cancer, mother also had diabetes, and father of jaundice. 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 Past Medical History: Hypertension, osteoarthritis at multiple sites, rheumatoid arthritis, hyperlipidemia, anemia, gastroesophageal reflux disease, depression, fatigue, pulmonary hypertension, metabolic acidosis, Clostridium difficile colitis, glucocorticoid insufficiency, and hypoglycemia. Physical Examination: Vital Signs: When she first came into emergency room temperature 98.3, pulse 86 , respiratory rate 20, blood pressure 98/66, oxygen saturation 90%. Height 5 feet 3 inches, weight 188 pounds. General: Awake, alert, oriented, not in distress. HEENT: Head atraumatic, normocephalic. Conjunctivae nonerythematous. Sclerae white. Mouth, no thrush or edema noted. Ears/Nose, no mass, lesion, discharge noted. Neck: Supple. No JVD, lymph nodes, bruit, thyromegaly noted. Lungs: Bilateral good equal air entry. Clear to auscultation. No rhonchi. No rales. Heart: Normal heart sounds, no murmur or gallop. Abdomen: Soft, bowel sounds normal. No guarding, rigidity, tenderness, mass, hepatosplenomegaly, distention, or bruit noted. Extremities: Chronic deformity of her hands and feet, this is unchanged from before. Skin: No rash, ulcer, cellulitis. Lymphatics: No lymph node enlargement in neck, supraclavicular, infraclavicular region. Neuro: No focal neurological deficit. Chest: Unremarkable. External Genitalia: Deferred. Rectal: Deferred. Laboratory Data: White count 8, hemoglobin 11.5, platelets 257. Sodium 142, potassium 3.6, chloride 107, bicarb 21, BUN 80, creatinine 6.15. Liver function tests unremarkable. Troponin less than 0.02. Procalcitonin 0.23. PTH 109. Uric acid 10.9. Urinalysis; wbc 5-10, bacteria 20-50, negative for nitrite and esterase, protein trace. Chest x-ray; no acute cardiopulmonary changes. Renal ultrasound; no hydronephrosis, no other acute changes noted. Impression: 1. Acute renal failure. 2. Anemia, unspecified. 3. Hypertension. 4. Osteoarthritis, multiple sites. 5. Rheumatoid arthritis. 6. Hyperlipidemia. 7. Gastroesophageal reflux disease. 8. Depression. 9. Pulmonary hypertension. 10. Noncompliance. Plan: Admit the patient to hospital for further evaluation and management of these problems. The patient is appropriate for inpatient and is expected to spend 2 midnights in hospital. Nephrology consultation has been requested. IV fluid will be given to the patient. SCD was ordered for DVT prophylaxis. We will monitor the patient's electrolytes and renal function, and I will see her tomorrow for followup. Decision regarding dialysis will be made by compound filler at appropriate time. We will see her tomorrow morning for followup and we will have nursing staff try to look into her medications by checking with her pharmacy to see if she is getting those refills regularly or not but I doubt it seriously because she has not kept any office appointments in almost a year. SALO/JILL Voice ID: [id number] NOLA
--- NOTE | 2019-04-01 08:07 | EKG ---
Test Date: 2019-03-31 Test Time: 10:00:00 Purchasing Administrative Assistant: KEN MEASUREMENT RESULTS: Intervals: Rate: 80 SD: 166 QRSD: 76 QT: 416 QTc: 479 [place]: P: 70 SD: 166 QRS: 47 T: 65 INTERPRETIVE STATEMENTS: Sinus rhythm with premature atrial complexes Otherwise normal ECG Compared to ECG 07/19/2018 13:57:30 Sinus tachycardia no longer present Electronically Signed On 04-01-19 08:07:08 CDT by Aristides Valentine
--- NOTE | 2019-04-01 08:34 | CON ---
Date of Consultation: 03/31/2019 Reason For Consultation: Elevated BUN and creatinine, fluid management. History Of Present Illness: This is a pleasant 78-year-old female, well known to me from the previou s admission with significant past medical history of hypertension, osteoarthritis with rheumatoid art hritis with deformity on the hand, hyperlipidemia, GERD, depression, pulmonary hypertension, accordin g to the family patient was in her regular state of health until almost 2 weeks when she started havi ng cough with sputum. Does not know the color. Some shortness of breath and gradually her health st arted to be deteriorating. The patient denied any fever, any chills. No diarrhea. The patient in t he last 48 hours does not have any urine output as by the family and when arrived to the emergency ro om found to have elevation in BUN and creatinine, for that reason, we have been consulted. On admiss ion, family denied taking any nonsteroidal, no IV contrast, no recent hospitalization in the last few months, no recent change in her medication, no exposure to any antibiotic. Reviewing the record for the patient back in 2018, creatinine 1.1 with GFR of 50. At that time, her H and H was 11.4/34. Past Medical History: Include: 1.Hypertension. 2.Osteoarthritis. 3.Gout. 4.Rheumatoid arthritis. 5.Hyperlipidemia. 6.Pulmonary hypertension. Allergies: NO KNOWN DRUG ALLERGIES. Social History: Denies smoking. Denies drinking. Denies drug abuse. Lives with the family. Review of Systems: Head and Neck: No red eye. No ear pain. GI: No nausea. No vomiting. No diarrhea. : An anuric in the last 48 hours. Provisioning Analyst: No vaginal discharge. Respiratory: Has cough and sputum. Cardiovascular: No chest pain. Endocrine: No polydipsia. Skin: No rash. Neuro: Has change in her mental status. Musculoskeletal: Generalized fatigue. Physical Examination: General: When I saw the patient, the patient lying in bed. Vital Signs: Blood pressure 124/70, pulse of 88. Chest: Crackles on the right base. Heart: S1 and S2. Systolic murmur. Abdomen: Soft and nontender. Extremities: No edema. Deformity on the hand joint with multiple MTA amputation. Neurological: Alert and oriented. No focal. Laboratory Data: WBC 8, H and H 11.5/34.4, platelets 257. Sodium 142, potassium 3.6, bicarb 21, BUN 80, creatinine 6.1, GFR of , glucose , calcium 8.5. Reviewing lab data before s yovany protein electrophoresis within normal limit. Vitamin D within normal limits. PTH 287 back in 2 012. Assessment And Plan: 1.Acute kidney injury, possible secondary to prerenal/toxic acute tubular necrosis secondary to pneu monia. Looked to me dry, no hyperkalemia, but had uremic encephalopathy. I am going to go ahead and agree with current IV hydration. I will hold losartan-hydrochlorothiazide for the time being given the acute kidney injury and we will monitor the patient closely. I will send full workup. 2.Hypertension, currently with the acute kidney injury. Discontinue hydrochlorothiazide and losarta n and we will follow up the patient. 3.Hypokalemia. I am not going to replace any potassium right now given the acute kidney injury. 4.Possible pneumonia. Giving the symptoms, we will start the patient on Zosyn 2.25 q.8. 5.Urinary tract infection. We will start on the Zosyn and we will follow up the patient. Thank you for allowing me to participate in the care of your patient. Case discussed with family, agreed on the plan. Discussed with the staff, agreed. We will proceed. KIM Voice ID: [id number] Report ID: [id number]
[2019-04-01] MEDS: GABAPENTIN 100 MG CAP PO SCH ×2 (09:30→20:21)
[2019-04-01] MEDS: FLUOXETINE 20 MG CAP PO SCH (09:30)
[2019-04-01] MEDS: HEPARIN 5000 UNIT/ML 1 ML VIAL SQ SCH ×2 (09:30→20:22)
[2019-04-01] MEDS: predniSONE 10 MG TAB PO SCH ×2 (09:30→20:21)
[2019-04-01] MEDS: METOPROLOL TAR 50 MG TAB PO SCH ×2 (09:30→20:21)
--- NOTE | 2019-04-01 10:00 | P.CNS ---
Date of Consult: 04/01/19 Reason for Consult: FCO Chief Complaint: weakness, AMS History of Present Illness: pt is a poor historian A 78 Y/o woman with PMHx of HTN, OA , HLD, GERD, pulmonary HTN, Hx of C.diff, and Adrenal insufficiency? pt presented for weakness and coughing of 2wks duration pt is known complaint with her out Pt follow appointment last avialble labs in 07/2018 cr 1.1 as per daughter she was complaining of weakness, poor oral intake and persistent cough her home meds last discharge HCTZ-losartan and lasix, unknown if she was taking her meds daughter stated that pt was taking ibuprofen and pain relief on daily bases for her arthritis currently still coughing, no chest pain, palpitation , nausea or vomiting in Er Cr 6.1, SBP in 90s Allergies No Known Allergies Allergy (Verified 07/02/15 14:59) Home Medications: Fluoxetine HCl [Prozac] 1 cap PO DAILY 01/28/18 Metoprolol Tartrate [Lopressor] 50 mg PO BID 01/28/18 predniSONE [Deltasone] 10 mg PO BID 01/28/18 Famotidine [Pepcid] 1 tab PO BEDTIME 07/19/18 Losartan/Hydrochlorothiazide [Hyzaar 50-12.5 Tablet] 1 tab PO DAILY 07/19/18 Furosemide [Lasix] 20 mg PO DAILY 03/31/19 Gabapentin 100 mg PO BID 03/31/19 - Past Medical/Surgical History Diabetic: No -: Asthma -: HTN -: Gout arthritis -: GERD -: Anemia -: C section -: Appy -: Ingrid - Family History Father Medical History: Liver disease Notes: jaundice Mother Medical History: Cancer - Social History Smoking Status: Never smoker Alcohol use: No CD- Drugs: No Caffeine use: Yes Place of Residence: Home Physical Examination Temp Pulse Resp BP Pulse Ox 97.3 F 83 18 136/92 H 91 04/01/19 08:00 04/01/19 09:30 04/01/19 08:00 04/01/19 09:30 04/01/19 08:00 General: Alert, In no apparent distress HEENT: Atraumatic Neck: Supple, Without JVD or thyroid abnormality Respiratory: Diminished Cardiovascular: No edema, Regular rate/rhythm, Normal S1 S2 Gastrointestinal: Normal bowel sounds Integumentary: No rashes Laboratory Data (last 24 hrs) 03/31/19 12:06: Uric Acid 10.9 H 03/31/19 11:08: PT 12.4, INR 1.05, APTT 24.0 L 03/31/19 10:25: WBC 8.0, Hgb 11.5 L, Hct 34.4 L, Plt Count 257 03/31/19 10:25: Sodium 142, Potassium 3.6, BUN 80 H, Creatinine 6.15 H*, Glucose 80, Total Bilirubin 0.8, AST 20, ALT 8 L, Alkaline Phosphatase 63 - Problems (1) FCO (acute kidney injury) Current Visit: Yes Status: Acute Conclusions/Impression: FCO likely due to dehydration and NSAID baeline Cr ~1.1 pedal swelling likely due to arthritis will start gentle hydration UA: +2 bld, could be traumatic, no protein, UPC 0.1 US; 9.4/7.8, no hydro will send for serology W/U will rpt CXR and proBNP tomorrow HTN Controlled now Cough cont inhalers and steroids will Rpt CXR as pt was dehydrated and could mask underlying renal pathology will start on levaquin , dose as per RFT UTI will send for cultures levaquin after cultures debility PT/OT
[2019-04-01] MEDS: NA CHLORIDE 0.9% 1,000 ML IV SCH (10:47)
[2019-04-01] MEDS: Levofloxacin 250mg IV 250 MG/50 ML BAG IV SCH (10:48)
[2019-04-01] MEDS: ALBUTEROL 2.5 MG/3 ML NEB SOL NEB PRN (16:55)
[2019-04-01] MEDS: IPRATROPIUM BROM 0.5MG/2.5ML NEB PRN (16:55)
[2019-04-01] MEDS: FAMOTIDINE 20 MG TAB PO SCH (20:21)
--- NOTE | 2019-04-01 22:22 | PN ---
Date of Progress Note: 04/01/2019 Subjective: The patient was seen this morning for followup. She was lying in bed, not in distress. Has some cough, chest congestion. Not coughing up any mucus. Denies any shortness of breath. No n ausea. No vomiting overnight. Objective: Vital Signs: Reviewed. HEENT: Unremarkable. Lungs: Clear to auscultation. No rhonchi or rales. Heart: Sounds normal. Abdomen: Soft. Bowel sounds normal. No guarding, rigidity, tenderness, distention. Extremities: No leg edema. Laboratory Data: White count 6.8, hemoglobin 11.2, platelets 180. Sodium 142, potassium 3.5, chlori de 110, bicarb 20, BUN 75, creatinine 4.88, glucose 141. Impression: 1.Acute renal failure. 2.Hypertension. 3.Anemia due to chronic kidney disease. 4.Rheumatoid arthritis. 5.Osteoarthritis, multiple sites. 6.Chronic steroid therapy. 7.Adrenal insufficiency. Plan: We will continue current medications. Home medications will be continued per order including her prednisone, and we will discontinue IV steroid. IV fluid will be given. We will monitor electro lytes and renal function on a daily basis as her renal function has improved from the time of admissi on until today with IV fluid hydration, and we will continue to monitor electrolytes and renal functi on on a daily basis right now. Physical therapy was consulted. Heparin 5000 units every 12 hours subcutaneous injection will be given for DVT prophylaxis. SALO/MODL Voice ID: [id number] Report ID: [id number]
[2019-04-02] MEDS: NA CHLORIDE 0.9% 1,000 ML IV SCH (04:34)
[2019-04-02] MEDS: GABAPENTIN 100 MG CAP PO SCH ×2 (09:00→21:41)
[2019-04-02] MEDS: HEPARIN 5000 UNIT/ML 1 ML VIAL SQ SCH ×2 (09:01→21:41)
[2019-04-02] MEDS: predniSONE 10 MG TAB PO SCH ×2 (09:01→21:41)
[2019-04-02] MEDS: FLUOXETINE 20 MG CAP PO SCH (09:01)
[2019-04-02] MEDS: METOPROLOL TAR 50 MG TAB PO SCH ×2 (09:06→21:43)
[2019-04-02] MEDS: CALCIUM CARBONATE CHEW 500MG TAB PO SCH ×2 (13:08→17:35)
--- NOTE | 2019-04-02 14:01 | PN ---
Date of Progress Note: 04/02/2019 Subjective: The patient still is awake. The patient admitted with acute kidney injury, secondary to the prerenal, was oliguric. Currently nonoliguric. Objective: Vital Signs: Blood pressure 130/80, pulse of 88, temperature 97. Chest: Faint crackles on the base. Heart: S1, S2 regular. Abdomen: Soft, nontender. Extremity: Trace edema. Laboratory Data: WBC 6.8, H and H 11.2/34.6, platelet 182. Sodium of 142, potassium 3.5, bicarb 20, BUN 75, creatinine 4.8. GFR of 10, calcium 7.6. BNP 2553. PTH 109. Urine analysis, positive for infection. PC ratio is 0.1. Serology is still pending. Renal ultrasound, small kidney bilateral, 9 .8 and 7.8. No hydronephrosis. No masses. Current Medications: The patient on its include Levaquin 250, albuterol, fluoxetine, gabapentin, Pep janki, prednisone 10 b.i.d. IV fluid. Culture still pending. Assessment And Plan: 1.Acute kidney injury secondary to prerenal superimposed with hydrochlorothiazide and ARB, currently nonoliguric, looks to me close to be normal volume. I am going to go ahead and discontinue IV fluid for the time being to avoid any over volume status. We will continue to monitor. We will follow up the lab of today. If kidney function continues to decline or lack of improvement, the patient may n eed to initiate renal replacement therapy. We will follow up serology. 2.Hypertension. Used to be hypotension. Keep holding all the blood pressure medication, ARB and hy drochlorothiazide, especially with the presence of acute kidney injury, and we will monitor. 3.Adrenal insufficiency, on maintenance dose. We will follow up with the primary. 4.Hypokalemia. I am going to follow up the lab of today to decide about the replacement status post supplement. 5.Anemia with the presence of renal failure. Serum protein electrophoresis is still pending. We wi ll follow up. 6.Secondary hyperparathyroid. Low calcium. I am going to start the patient on Tums. No need for v itamin D for the time being. 7.Urinary tract infection. Continue current antibiotic. We will follow up with primary. MARCIA/JILL Voice ID: [id number] Report ID: [id number]
--- NOTE | 2019-04-02 15:14 | PN ---
Date of Progress Note: 04/02/2019 Subjective: The patient was seen this morning for followup. No new complaints, problems reported by patient. She was lying in bed, not in distress. Lab personnel were not able to draw blood. Multip le people tried, they were not able to draw blood. Vital signs reviewed. The patient reports her co ugh is better today compared to yesterday. No nausea, vomiting. No abdominal pain. No shortness of breath. Objective: HEENT: Examination unremarkable. Lungs: Clear to auscultation. Heart: Sounds normal. Abdomen: Soft. Bowel sounds normal. No guarding, rigidity, tenderness, or distention. Extremities: No leg edema. Laboratory Data: Pending from this morning. Impression: 1.Volume depletion. 2.Acute renal failure. 3.Hypertension. 4.Adrenal insufficiency. 5.Rheumatoid arthritis. 6.Osteoarthritis, multiple sites. Plan: We will continue current medications. Continue current IV fluid. If we are not able to draw any blood, then we will have to consider putting a PICC line in her case so that it will allow us to provide IV access as well as ability to draw blood and we may have to do that today. Details were discussed with nursing staff regarding that today. We will continue to follow with machinery erector. SALO/MODL Voice ID: [id number] Report ID: [id number]
--- NOTE | 2019-04-02 16:21 | RAD REPORT ---
EXAM DESCRIPTION: RAD - Chest Single View - 04/02/2019 4:06 pm CLINICAL HISTORY: PICC line placement COMPARISON: Chest Single View dated 03/31/2019; Chest Single View dated 07/19/2018; Chest Single View dated 01/28/2018; Chest Single View dated 12/25/2017 FINDINGS: Portable chest was obtained following placement of a right upper extremity PICC line. The catheter tip projects over the SVC..
[2019-04-02 17:53] LABS: Potassium 3.6 mmol/L (3.5-5.1); Thyroid Stimulating Hormone 0.226 uIU/mL (0.360-3.740)
[2019-04-02 18:02] LABS: Ferritin 529.9 ng/mL (8-388); Folic Acid, (Folate) 2.4 ng/mL (3.1-17.5)
[2019-04-02] MEDS: FAMOTIDINE 20 MG TAB PO SCH (21:41)
[2019-04-03 05:12] LABS: Albumin 2.1 g/dL (3.4-5.0); Phosphorus 2.9 mg/dL (2.5-4.9); Potassium 3.6 mmol/L (3.5-5.1)
[2019-04-03] MEDS: CALCIUM CARBONATE CHEW 500MG TAB PO SCH ×3 (08:13→16:16)
[2019-04-03] MEDS: FLUOXETINE 20 MG CAP PO SCH (08:15)
[2019-04-03] MEDS: predniSONE 10 MG TAB PO SCH ×2 (08:15→23:12)
[2019-04-03] MEDS: HEPARIN 5000 UNIT/ML 1 ML VIAL SQ SCH ×2 (08:15→23:11)
[2019-04-03] MEDS: GABAPENTIN 100 MG CAP PO SCH ×2 (08:15→23:11)
[2019-04-03] MEDS: METOPROLOL TAR 50 MG TAB PO SCH ×2 (08:15→23:12)
[2019-04-03] MEDS: Levofloxacin 250mg IV 250 MG/50 ML BAG IV SCH (11:33)
[2019-04-03] MEDS ORDERED: NA CHLORIDE 0.9% 250 ML ONE (11:51)
[2019-04-03] MEDS ORDERED: FUROSEMIDE 40 MG/4 ML VIAL IV ONE (12:00)
[2019-04-03] MEDS ORDERED: Levofloxacin 250mg IV 250 MG/50 ML BAG IV SCH (13:00)
--- NOTE | 2019-04-03 17:56 | PN ---
Date of Progress Note: 04/03/2019 Subjective: The patient was admitted with acute kidney injury, prerenal. The patient was started on hydration. The patient started having some shortness of breath. Physical Examination: Vital signs: Blood pressure of 132/76, pulse of 60. Afebrile. The patient had good urine output ye sterday, but a little bit less than before, had only 600 in 24 hours. Chest: Crackles, bilateral bases. Heart: S1, S2. Systolic murmur. Abdomen: Soft, nontender. Extremities: Trace edema. Laboratory Data: WBC 6.8, H and H 11.2/34.6, platelets 182. Sodium of 141; potassium 3.6; bicarb 20 ; BUN 79, trending down; creatinine down to 3.6; GFR of 15; calcium 7.8. Phosphorus 2.9. T-sat of 4 9, ferritin 529. BNP 13,127. Folate 2.4, PTH of 100. Assessment And Plan: 1.Acute kidney injury secondary to prerenal, secondary to poor intake, nonoliguric, slightly on the wet side. I am going to go ahead and keep holding IV fluid. We will give the patient single dose of Lasix, and we will follow up the rest of the workup. 2.Anemia of chronic kidney disease. We will continue to monitor. No need for iron or JUAN MANUEL for the t ganga being. 3.Shortness of breath secondary to congestion. Continue holding IV fluid. We will give the patient Lasix. 4.Urinary tract infection. Continue antibiotic, dose adjusted. Culture is still pending. Current Medications: The patient on Levaquin 250 q.48, metoprolol 50 b.i.d., Tylenol, fluoxetine, ga bapentin, ipratropium. MA/MODL Voice ID: [id number] Report ID: [id number]
[2019-04-03] MEDS: FAMOTIDINE 20 MG TAB PO SCH (23:11)
[2019-04-04 01:21] LABS: Rheumatoid Factor POS (NEG)
[2019-04-04 05:51] LABS: Absolute Lymphocytes (CBC) 1.2 K/uL (0.7-4.9); Basophils % 0.1 % (0-1.3); Lymphocytes % 18.3 % (15.3-44.8); MPV 9.8 fL (7.6-11.3); Monocytes % 12.5 % (3.3-12.3); RBC Red Blood Cell Count 3.16 M/uL (3.86-4.86)
[2019-04-04 06:14] LABS: Albumin 2.2 g/dL (3.4-5.0); Phosphorus 2.7 mg/dL (2.5-4.9); Potassium 3.9 mmol/L (3.5-5.1)
[2019-04-04] MEDS: HEPARIN 5000 UNIT/ML 1 ML VIAL SQ SCH ×2 (10:45→22:07)
[2019-04-04] MEDS: GABAPENTIN 100 MG CAP PO SCH ×2 (10:46→22:10)
[2019-04-04] MEDS: METOPROLOL TAR 50 MG TAB PO SCH ×2 (10:46→22:07)
[2019-04-04] MEDS: FLUOXETINE 20 MG CAP PO SCH (10:46)
[2019-04-04] MEDS: predniSONE 10 MG TAB PO SCH ×2 (10:46→22:07)
[2019-04-04] MEDS: CALCIUM CARBONATE CHEW 500MG TAB PO SCH ×3 (10:49→17:40)
[2019-04-04] MEDS: Levofloxacin 250mg IV 250 MG/50 ML BAG IV SCH (10:50)
[2019-04-04] MEDS: NACHLORIDE 0.45% 1,000 ML IV SCH ×2 (11:27→20:20)
[2019-04-04] MEDS: FAMOTIDINE 20 MG TAB PO SCH (22:07)
[2019-04-04] MEDS: ALBUTEROL 2.5 MG/3 ML NEB SOL NEB PRN (22:30)
[2019-04-04] MEDS: IPRATROPIUM BROM 0.5MG/2.5ML NEB PRN (22:30)
--- NOTE | 2019-04-05 00:11 | PN ---
Date of Progress Note: 04/03/2019 Subjective: The patient was seen for followup in the morning. Denied any complaints, sleeping, easi ly arousable. No chest pain shortness of breath. No nausea, vomiting. Objective: Vital Signs: Reviewed. HEENT: Unremarkable. Lungs: Clear to auscultation. Heart: Sounds normal. Abdomen: Soft. Bowel sounds normal. No guarding, rigidity, tenderness, or distention. Extremities: No leg edema. Laboratory Data: Sodium 141, potassium 3.6, chloride 109, bicarb 20, BUN 79, creatinine 3.61, glucos e 105. Impression: 1.Acute renal failure. 2.Hypertension. 3.Osteoarthritis, multiple sites. 4.Rheumatoid arthritis. 5.Chronic steroid therapy. Plan: We will continue current medication. Continue IV fluid. Continue to follow with sales process manager . We will repeat blood work tomorrow morning and we will see her tomorrow for followup. Renal funct ion is slowly improving during this hospitalization. SALO/MODL Voice ID: [id number] Report ID: [id number]
--- NOTE | 2019-04-05 00:17 | PN ---
Date of Progress Note: 04/04/2019 Subjective: The patient was seen this morning for followup. She was lying in bed, not in distress. No new complaints or problems reported. Objective: Vital Signs: Reviewed. HEENT: Unremarkable. Lungs: Clear to auscultation. Heart: Sounds normal. Abdomen: Soft. Bowel sounds normal. No guarding, rigidity, tenderness, distention. Extremities: N o leg edema. Laboratory Data: White count 6.8, hemoglobin 11.2, platelets 218. Sodium 141, potassium 3.9, chlori de 110, bicarb 21, BUN 81, creatinine 3.60, glucose 102. Impression: 1.Acute renal failure. 2.Hypertension. 3.Osteoarthritis, multiple sites. 4.Rheumatoid arthritis. Plan: Continue current medications. Continue IV fluid. We will repeat blood work tomorrow morning. Physical therapy to continue to work with the patient to ambulate her and will continue to follow w [facility]. Plan of treatment discussed with the patient. SALO/MODL Voice ID: [id number] Report ID: [id number]
--- NOTE | 2019-04-05 01:24 | PN ---
Date of Progress Note: 04/04/2019 Chief Complaint: Acute kidney injury, nonoliguric, severe secondary to prerenal azotemia and nonolig uric acute tubular necrosis in setting of hypovolemia. The patient is responding to IV fluids. The patient developed although some fluid overload, requires 1 dose of Lasix. Review of Systems: The patient denies shortness of breath. Denies PND, orthopnea. Physical Examination: Lungs: Few crackles at bases. Heart S1-S2. Abdomen: Soft, benign. Extremities: Edema 1+. Lab Work: Phosphorus 2.9, BUN 79, creatinine 3.6, potassium 3.6. Sodium 141, hemoglobin is 11.2. Impression And Plan: 1.Acute on chronic kidney injury, nonoliguric. The patient developed some fluid overload, received Lasix dose to control volemia and prevent worsening of the shortness of breath. Renal function is pl ateauing today. BUN is 81, creatinine is 3.6, sodium 141, potassium 3.9, chloride 110, CO2 21, calci um 8.3, and phosphorus is 2.7. Continue to monitor renal function. Renal ultrasound did not show obstructive uropathy. The patient is feeling better today. 1.Urinary tract infection. Continue antibiotics. Dose adjusted. The patient is on Levaquin. 2.Hypertension. Continue beta bethany. 3.Shortness of breath. IV fluids on hold. At this point, the patient received IV Lasix. Continue p.o. hydration. EB/MODL Voice ID: [id number] Report ID: [id number]
[2019-04-05] MEDS: NACHLORIDE 0.45% 1,000 ML IV SCH ×3 (04:36→21:23)
[2019-04-05 05:56] LABS: Phosphorus 2.7 mg/dL (2.5-4.9); Potassium 3.8 mmol/L (3.5-5.1)
[2019-04-05 05:57] LABS: Magnesium 1.3 mg/dL (1.8-2.4)
[2019-04-05] MEDS ORDERED: Magnesium Sulfate 2gm IVPB 2 G/50 ML BAG IV ONE (07:30)
[2019-04-05] MEDS: predniSONE 10 MG TAB PO SCH ×2 (09:04→20:58)
[2019-04-05] MEDS: CALCIUM CARBONATE CHEW 500MG TAB PO SCH ×3 (09:04→17:09)
[2019-04-05] MEDS: GABAPENTIN 100 MG CAP PO SCH ×2 (09:04→20:58)
[2019-04-05] MEDS: FLUOXETINE 20 MG CAP PO SCH (09:04)
[2019-04-05] MEDS: HEPARIN 5000 UNIT/ML 1 ML VIAL SQ SCH ×2 (09:04→20:58)
[2019-04-05] MEDS: METOPROLOL TAR 50 MG TAB PO SCH ×2 (09:04→20:58)
[2019-04-05] MEDS: Levofloxacin 250mg IV 250 MG/50 ML BAG IV SCH (13:08)
--- NOTE | 2019-04-05 19:10 | P.PN ---
Subjective Date of Service: 04/05/19 Chief Complaint: weakness, AMS Subjective: No new changes Pt admitted with SOB, found to have FCO today no overnight events Cr slightly improved on IVF will cont gentle IVF Rpt CXR tomorrow Physical Examination - Vital Signs Temperature: 97.2 F Blood Pressure: 127/91 Pulse: 67 Respirations: 20 Pulse Ox (%): 96 - Physical Exam General: In no apparent distress, Oriented x3 HEENT: Atraumatic Neck: Supple, Without JVD or thyroid abnormality Respiratory: Diminished Cardiovascular: No edema, Regular rate/rhythm, Normal S1 S2, No gallops, No rubs , No murmurs Gastrointestinal: Normal bowel sounds Integumentary: No rashes - Studies Microbiology Data (last 24 hrs): 03/31/19 10:15 Blood - Blood Aerobic Blood Culture - Final No growth in 5 days. 03/31/19 10:15 Blood - Blood Anaerobic Blood Culture - Final 03/31/19 10:25 Blood - Blood Aerobic Blood Culture - Final No growth in 5 days. 03/31/19 10:25 Blood - Blood Anaerobic Blood Culture - Final Assessment And Plan - Current Problems (Diagnosis) (1) FCO (acute kidney injury) Current Visit: Yes Status: Acute - Plan FCO likely due to dehydration and NSAID baeline Cr ~1.1 cont gentle hydration UA: +2 bld, could be traumatic, no protein, UPC 0.1 US; 9.4/7.8, no hydro serology w/u so far mildly elevated RF HTN Controlled now UTI will send for cultures levaquin after cultures debility PT/OT
--- NOTE | 2019-04-05 19:40 | PN ---
Date of Progress Note: 04/05/2019 Subjective: The patient was seen this morning for followup. She was lying in bed, not in any distre ss. No new complaints or problems reported by her. No shortness of breath. Objective: Vital Signs: Reviewed. HEENT Examination: Unremarkable. Lungs: Clear to auscultation. No rhonchi or rales. Heart: Sounds normal. Abdomen: Soft. Bowel sounds normal. No guarding, rigidity, tenderness, or distention. Extremities: No leg edema. Laboratory Data: Sodium 139, potassium 3.8, chloride 110, bicarb 21, BUN 80, creatinine 3.47, glucos e 96, magnesium 1.3. Impression: 1.Acute renal failure. 2.Hypertension. 3.Urinary tract infection. 4.Hypomagnesemia. 5.Anemia. 6.Osteoarthritis, multiple sites. 7.Rheumatoid arthritis. Plan: We will go ahead and continue IV fluid per current order. Continue to monitor electrolytes, r enal function. Physical therapy to continue to work with the patient. Social Service to assist the patient with fci placement. The patient had a normal creatinine around 1 to 1.1 last year i n July, that the last blood test results we have. After that, she never followed up with me. So, we will continue current medications. Continue current IV fluid and I will see her tomorrow for foll owup. SALO/MODL Voice ID: [id number] Report ID: [id number]
[2019-04-05] MEDS ORDERED: NACHLORIDE 0.45% 1,000 ML IV SCH (20:00)
[2019-04-05] MEDS: FAMOTIDINE 20 MG TAB PO SCH (20:58)
[2019-04-06 03:28] LABS: HBsAG Nonreactive (Nonreactive)
[2019-04-06 04:48] LABS: Albumin 2.1 g/dL (3.4-5.0); Phosphorus 2.1 mg/dL (2.5-4.9); Potassium 3.7 mmol/L (3.5-5.1)
[2019-04-06] MEDS: CALCIUM CARBONATE CHEW 500MG TAB PO SCH ×3 (06:24→17:37)
[2019-04-06] MEDS: METOPROLOL TAR 50 MG TAB PO SCH ×2 (09:00→20:56)
--- NOTE | 2019-04-06 09:20 | RAD REPORT ---
EXAM DESCRIPTION: RAD - Chest Single View - 04/06/2019 8:31 am CLINICAL HISTORY: evaluate for edema/effusion Chest pain. COMPARISON: Chest Single View dated 04/02/2019; Chest Single View dated 03/31/2019; Chest Single View dated 07/19/2018; Chest Single View dated 01/28/2018 FINDINGS: Portable technique limits examination quality. The lungs are grossly clear. The heart is normal in size. No displaced fractures.Right-sided venous c atheter tip in the SVC. IMPRESSION: No acute intrathoracic process suspected.
[2019-04-06] MEDS: predniSONE 10 MG TAB PO SCH ×2 (11:02→20:57)
[2019-04-06] MEDS: GABAPENTIN 100 MG CAP PO SCH ×2 (11:02→20:58)
[2019-04-06] MEDS: NACHLORIDE 0.45% 1,000 ML IV SCH (11:02)
[2019-04-06] MEDS: HEPARIN 5000 UNIT/ML 1 ML VIAL SQ SCH ×2 (11:02→20:58)
[2019-04-06] MEDS: FLUOXETINE 20 MG CAP PO SCH (11:02)
[2019-04-06] MEDS ORDERED: POTASSIUM PHOS 10 MM in NA CHLORIDE 0.9% 250 ML IV ONE (11:20)
[2019-04-06] MEDS ORDERED: NACHLORIDE 0.45% 1,000 ML IV SCH (12:00)
--- NOTE | 2019-04-06 12:40 | PN ---
Date of Progress Note: 04/06/2019 Subjective: The patient doing slightly better. Still have some shortness of breath. Require assist ant with ambulating. Physical Examination: Vital Signs: Blood pressure 164/84, pulse of 87, afebrile. The patient had good urine output of 775 . The patient gained 1 pound, positive of 1900. Chest: Clear to auscultation. Heart: S1 and S2. Systolic murmur. Abdomen: Soft and nontender. Extremities: Trace edema. Laboratory Data: WBC 6.8, H and H 11.2/33, platelets 218. Sodium of 133, potassium 3.7, bicarb 20, BUN 72 trending down, creatinine 3.2 continue to trend down, GFR of 16, calcium 8, phosphorus 2.1. Current Medications: The patient on its include Levaquin 250 daily, calcium carbonate, metoprolol 50 b.i.d., breathing treatment, prednisone 10, IV fluid half normal of 75 per hour. Assessment And Plan: 1.Acute kidney injury secondary to prerenal. Start recovering. I am going to decrease IV fluid to 50 per hour. Plan to DC. 2.Hypokalemia and hypophosphatemia. I am going to go ahead and replenish cautiously and we will fol low up the lab. 3.Hypomagnesemia, resolved. 4.Urinary tract infection. Culture pending. I am going to continue current antibiotic, dose approp riate. 5.Deconditioning. Continue PT, OT. 6.Bronchitis, chronic obstructive pulmonary disease exacerbation as by primary. 7.Adrenal insufficiency. Continue current treatment. Appropriate dose of prednisone. 8.Hypertension, not controlled. I am going to go ahead and add a low dose of hydralazine. MA/MODL Voice ID: [id number] Report ID: [id number]
[2019-04-06] MEDS: Levofloxacin 250mg IV 250 MG/50 ML BAG IV SCH (13:25)
[2019-04-06 17:24] LABS: HIV AG/AB 4TH GEN Non-reactive (Non-reactive)
[2019-04-06] MEDS: HYDRALAZINE HCL 10 MG TABLET PO SCH (20:57)
[2019-04-06] MEDS: FAMOTIDINE 20 MG TAB PO SCH (20:57)
[2019-04-06] MEDS: NA CHLORIDE 0.9% 1,000 ML IV SCH (20:58)
--- NOTE | 2019-04-06 21:38 | PN ---
Date of Progress Note: 04/06/2019 Subjective: The patient was seen this morning for followup. No new complaints or problems reported by her. Lying in bed, not in any distress. Objective: Vital Signs: Reviewed. HEENT: Examination unremarkable. Lungs: Clear to auscultation. Heart: Sounds normal. Abdomen: Soft. Bowel sounds normal. No guarding, rigidity, tenderness, or distention. Extremities: No leg edema. Laboratory Data: Sodium 133, potassium 3.7, chloride 104, bicarb 20, BUN 72, creatinine 3.29, glucos e 102. Impression: 1.Acute renal failure. 2.Hypertension. 3.Osteoarthritis on multiple sites. 4.Urinary tract infection. Plan: We will continue current medication. Continue current IV fluid. Renal function is slowly imp roving. Her last known creatinine in July last year was 1, so we will try to see as much improvem ent as we can possible if we can obtain that with help of IV fluid hydration and so far she has not s hown any signs of fluid overload. I will see her tomorrow for followup. SALO/MODL Voice ID: [id number] Report ID: [id number]
[2019-04-06 23:48] LABS: Albumin, (SPE) 2.4 g/dL (3.8-4.8); Alpha-1-Globulins 0.4 g/dL (0.2-0.3); Alpha-2-Globulins 1.1 g/dL (0.5-0.9); Gamma Globulins 1.1 g/dL (0.8-1.7); INTERPRETATION REPORT
[2019-04-07 05:00] LABS: Albumin 2.1 g/dL (3.4-5.0); Phosphorus 2.9 mg/dL (2.5-4.9); Potassium 4.1 mmol/L (3.5-5.1)
[2019-04-07 05:07] VITALS: BMI 38.2
[2019-04-07] MEDS: CALCIUM CARBONATE CHEW 500MG TAB PO SCH ×3 (08:33→17:30)
[2019-04-07] MEDS: predniSONE 10 MG TAB PO SCH ×2 (08:40→21:07)
[2019-04-07] MEDS: FLUOXETINE 20 MG CAP PO SCH (08:40)
[2019-04-07] MEDS: METOPROLOL TAR 50 MG TAB PO SCH ×2 (08:40→21:07)
[2019-04-07] MEDS: HYDRALAZINE HCL 10 MG TABLET PO SCH ×2 (08:40→21:08)
[2019-04-07] MEDS: HEPARIN 5000 UNIT/ML 1 ML VIAL SQ SCH ×2 (08:40→21:06)
[2019-04-07] MEDS: GABAPENTIN 100 MG CAP PO SCH ×2 (08:40→21:07)
[2019-04-07] MEDS: NA CHLORIDE 0.9% 1,000 ML IV SCH ×3 (10:20→21:19)
--- NOTE | 2019-04-07 12:01 | P.PN ---
Subjective Date of Service: 04/07/19 Chief Complaint: weakness, AMS Subjective: Improving Pt admitted with SOB, found to have FCO today no overnight events Cr is stable will remove villatoro catheter and trial of void if Renal function test cont to be stable by tomorrow then pt can be discharged tomorrow from nephrology point of view Physical Examination - Vital Signs Temperature: 97.9 F Blood Pressure: 108/54 Pulse: 60 Respirations: 18 Pulse Ox (%): 100 - Physical Exam General: Alert, In no apparent distress HEENT: Atraumatic Neck: Supple, Without JVD or thyroid abnormality Respiratory: Diminished Cardiovascular: No edema, Regular rate/rhythm, Normal S1 S2, No gallops, No rubs , No murmurs Gastrointestinal: Soft and benign Musculoskeletal: No swelling Assessment And Plan - Current Problems (Diagnosis) (1) FCO (acute kidney injury) Current Visit: Yes Status: Acute - Plan FCO likely due to dehydration and NSAID baeline Cr ~1.1 UA: +2 bld, could be traumatic, no protein, UPC 0.1 US; 9.4/7.8, no hydro serology w/u so far mildly elevated RF , C3, C4 and hep pabel -ve Cr is stable now ~3.3 HTN Controlled now UTI on levaquin debility PT/OT can be discharged tomorrow from nephrology point of view if Cr cont to be stable by tomorrow
[2019-04-07] MEDS: Levofloxacin 250mg IV 250 MG/50 ML BAG IV SCH (12:49)
--- NOTE | 2019-04-07 20:41 | PN ---
Date of Progress Note: 04/07/2019 Subjective: The patient was seen this morning for followup. No new complaints or problems reported by the patient, lying in bed, not in distress. Objective: Vital Signs: Reviewed. HEENT: Examination unremarkable. Lungs: Clear to auscultation. Heart: Sounds normal. Abdomen: Soft. Bowel sounds normal. No guarding, rigidity, tenderness, distention. Extremities: No leg edema. Laboratory Data: Labs reviewed. Impression: 1.Acute renal failure. 2.Hypertension. 3.Urinary tract infection. 4.Osteoarthritis multiple sites. 5.Rheumatoid arthritis. Plan: The patient's creatinine has stabilized and really do not see any improvement in last 24 hours . We will continue IV fluid today. Repeat another blood work tomorrow. Details were discussed with optimization consultant and optimization consultant will remove Chiang catheter today and said that it is okay from his poi nt of view for the patient to be discharged to go to [facility] as this might be her baseline renal function, and they will continue to follow up on outpatient basis. I will repeat blood work tomorrow and hopefully will be able to discharge her to go to [facility]. SALO/MODL Voice ID: [id number] Report ID: [id number]
[2019-04-07] MEDS: FAMOTIDINE 20 MG TAB PO SCH (21:06)
[2019-04-08 02:23] VITALS: O2SAT 91
[2019-04-08 08:42] LABS: Absolute Lymphocytes (CBC) 1.2 K/uL (0.7-4.9); Basophils % 0.1 % (0-1.3); Lymphocytes % 14.7 % (15.3-44.8); MPV 9.4 fL (7.6-11.3)
[2019-04-08 08:48] LABS: Magnesium 1.9 mg/dL (1.8-2.4); Potassium 4.2 mmol/L (3.5-5.1)
[2019-04-08] MEDS: CALCIUM CARBONATE CHEW 500MG TAB PO SCH ×3 (08:58→16:51)
[2019-04-08] MEDS: HYDRALAZINE HCL 10 MG TABLET PO SCH (08:58)
[2019-04-08] MEDS: predniSONE 10 MG TAB PO SCH (08:59)
[2019-04-08] MEDS: FLUOXETINE 20 MG CAP PO SCH (08:59)
[2019-04-08] MEDS: GABAPENTIN 100 MG CAP PO SCH (08:59)
[2019-04-08] MEDS: METOPROLOL TAR 50 MG TAB PO SCH (08:59)
[2019-04-08] MEDS: HEPARIN 5000 UNIT/ML 1 ML VIAL SQ SCH (09:00)
[2019-04-08 10:29] LABS: P-ANCA Anti-Myeloperoxidase Ab <1.0 AI (<1.0)
--- NOTE | 2019-04-08 12:11 | P.PN ---
Subjective Date of Service: 04/08/19 Chief Complaint: weakness, AMS Subjective: Improving Pt admitted with SOB, found to have FCO today no overnight events Cr slightly improving no urinary symptoms will dc IVF cleared for discharge from nephrology point of view Follow with nephrology clinic in 2-3 wks Physical Examination - Vital Signs Temperature: 97.2 F Blood Pressure: 135/58 Pulse: 61 Respirations: 16 Pulse Ox (%): 90 - Physical Exam General: Alert, In no apparent distress HEENT: Atraumatic Neck: Supple, Without JVD or thyroid abnormality Respiratory: Diminished Cardiovascular: No edema, Normal pulses, Regular rate/rhythm, Normal S1 S2, No gallops, No rubs Gastrointestinal: Soft and benign, Non-distended Assessment And Plan - Current Problems (Diagnosis) (1) FCO (acute kidney injury) Current Visit: Yes Status: Acute - Plan FCO likely due to dehydration and NSAID baeline Cr ~1.1 UA: +2 bld, could be traumatic, no protein, UPC 0.1 US; 9.4/7.8, no hydro serology w/u so far mildly elevated RF , C3, C4 and hep pabel -ve Cr improving slowly to 3.2 HTN Controlled now UTI on levaquin debility PT/OT
[2019-04-08] MEDS: NA CHLORIDE 0.9% 1,000 ML IV SCH (13:03)
[2019-04-08] MEDS: Levofloxacin 250mg IV 250 MG/50 ML BAG IV SCH (13:03)
[2019-04-08 17:14] VITALS: BP 182/76; TEMP 97.3
--- NOTE | 2019-04-09 00:20 | DS ---
Date of Discharge: 04/08/2019 Disposition: Discharged to go to halfway facility. Physical Examination: HEENT: Unremarkable. Lungs: Clear to auscultation. Heart: Sounds normal. Abdomen: Soft. Bowel sounds normal. No guarding, rigidity, tenderness, distention. Extremities: No leg edema. Laboratory Data: Labs done during this hospitalization upon admission on 2018, white count 8, hemoglobin 11.5, platelets 257. Last CBC on 04/04/2019, white count 6.8, hemoglobin 11.2, platelets 218. Initial chemistry on 2018, sodium 142, potassium 3.6, chloride 107, bicarb 21, BUN 80, creatinine 6.15, glucose 80. Yesterday, sodium 135, potassium 4.1, chloride 106, bicarb 19 , BUN 73, creatinine 3.31, glucose 95. Today, creatinine was 3.21. Her magnesium was low at 1.3 on 04/05/2019, with electrolyte replacement protocol, it was corrected. Hospital Course: A 78-year-old female patient who is not compliant with office followup appointments. Last time she saw me at office was May of last year and she was in the hospital in July last year and she never returned for followup visit as suggested after she left the hospital. She ended up in the emergency room on 03/31/2019, with feeling weak, sleepy, some cough, chest congestion, and after worsening of condition, she came into emergency room, evaluated and admitted to the hospital. The patient was in acute renal failure. Nephrology consultation was requested. She did have some mild urinary tract infection and she was treated with IV antibiotic, Levaquin. Chest x-ray did not show any acute cardiopulmonary changes. IV fluid was given and we monitored her electrolytes, renal function almost on a daily basis. Physical Therapy was consulted. She started ambulating with physical therapy. Her cough, chest congestion problem improved and renal function has improved. Renal function has not returned back to the baseline like the way it was in July 2018 and we are not sure if it will return back to that level or not as last 3 days or so, it has stopped improving. Senior Principal Process Engineer has actually released her for discharge with understanding that this may be her new baseline and they will continue to follow up on outpatient basis with the patient. It was recommended for the patient to go to halfway facility. The patient and family they were agreeable. Social Service was consulted and once arrangements completed today, she will be discharged in stable condition to halfway facility. Final Diagnoses: 1. Acute renal failure. 2. Anemia due to kidney disease. 3. Hypertension. 4. Hypomagnesemia. 5. Hyponatremia. 6. Metabolic acidosis. 7. Osteoarthritis, multiple sites. 8. Rheumatoid arthritis. 9. Hyperlipidemia. 10. Gastroesophageal reflux disease. 11. Depression. 12. Pulmonary hypertension. 13. Noncompliance. Discharge Medications And Instructions: 1. Continue prior home medication except stop losartan/HCTZ. 2. Consult Physical Therapy at [facility]. 3. custodial physician to monitor CBC and Chem-7 on a regular basis and the patient to follow up with sustainability engineer in 2 weeks. 4. See discharge orders for more details. SALO/MODL Voice ID: [id number] Report ID: [id number] [id number]
== END 2019-04-08 18:39 | DRG 683 ==
LOC: ER 09:55 → ERHOLD 12:57 → 2ND 15:11
PROVIDERS: ADMIT Internal Medicine; ATTEND Internal Medicine
PROC: 02HV33Z Insertion of Infusion Device into Superior Vena Cava, Percutaneous Approach (ICD-10-PCS; principal; 2019-04-02)
DX: N17.9 Acute kidney failure, unspecified (principal); N39.0 Urinary tract infection, site not specified; G93.49 Other encephalopathy; E27.40 Unspecified adrenocortical insufficiency; J44.1 Chronic obstructive pulmonary disease with (acute) exacerbation; E86.0 Dehydration; T39.395A Adverse effect of other nonsteroidal anti-inflammatory drugs [NSAID], initial encounter; I12.9 Hypertensive chronic kidney disease with stage 1 through stage 4 chronic kidney disease, or unspecified chronic kidney disease; N18.9 Chronic kidney disease, unspecified; D63.1 Anemia in chronic kidney disease; I27.20 Pulmonary hypertension, unspecified; M06.9 Rheumatoid arthritis, unspecified; E78.5 Hyperlipidemia, unspecified; K21.9 Gastro-esophageal reflux disease without esophagitis; F32.9 Major depressive disorder, single episode, unspecified; Z91.19 Patient's noncompliance with other medical treatment and regimen; E87.6 Hypokalemia; E83.42 Hypomagnesemia; E83.39 Other disorders of phosphorus metabolism; M15.9 Polyosteoarthritis, unspecified; Z79.52 Long term (current) use of systemic steroids; Z86.19 Personal history of other infectious and parasitic diseases
CPT/HCPCS: 36415; 51702; 71045; 76770; 80048; 80069; 80076; 81003; 81015; 82550; 82570; 82728; 82746; 82962; 83520; 83540; 83605; 83735; 83880; 83970; 84145; 84156; 84165; 84443; 84466; 84484; 84550; 85025; 85610; 85730; 86021; 86038; 86160; 86317; 86334; 86430; 86705; 86706; 86803; 87040; 87086; 87088; 87340; 87389; 87804; 93005; 94640; 94760; 96365; 96366; 96375; 97116; 97162; 97530; 99285; J0456; J0696; J1644; J1940; J2920; J2930; J3475; J7030; J7512

== ENCOUNTER 2019-06-04 22:24 | Emergency (ER) | payer OTHER ==
[2012-06-15 10:13] VITALS: BP 169/95
--- OUTSIDE RECORDS SUMMARY | 2019-06-04 22:26 | XMS REPORT ---
:1940 [facility] Address [address] [place] [address] Care Team Providers Name Role Phone Unavailable Unavailable Unavailable Problems This patient has no known problems. Allergies, Adverse Reactions, Alerts This patient has no known allergies or adverse reactions. Medications This patient has no known medications.
--- OUTSIDE RECORDS SUMMARY | 2019-06-04 22:36 | XMS REPORT | Summary of Care ---
:1940 Author Organization [facility] Address [address] [place] [address] Care Team Providers Name Role Phone Sg Levy Primary Care Provider Keli Npaier DO [employer] Plant Engineer Reason for Referral (Routine) Status Reason Specialty Diagnoses / Referred By Referred To Procedures Contact Contact New Request Case Management Procedures Olivier Hansen CONSULT/REFERRAL A [address] PROGRAM [address] [address] Radiology Services (Routine) Status Reason Specialty Diagnoses / Referred By Referred To Procedures Contact Contact New Request Diagnostic Diagnoses Melena Aboueisha, Radiology Procedures IR EMBOLIZATION ARTERIAL OR VENOUS HEMORRHAGE OR LYMPHATIC EXTRAVASATION IR OTHER MD Jerica [address] [place] [address]. [place] [address] (Routine) Status Reason Specialty Diagnoses / Referred By Referred To Procedures Contact Contact New Request Vascular Surgery Procedures Olivier Hansen BILATERAL VENOUS A DUPLEX UPPER [address] [place] [address] EXTREMITY BY [facility] [place] [address] (Routine) Status Reason Specialty Diagnoses / Referred By Referred To Procedures Contact Contact New Request Vascular Surgery Procedures Olivier Hansen BILATERAL VENOUS A DUPLEX UPPER [address] [place] [address] EXTREMITY BY [id number] [place] [address] Radiology Services (STAT) Status Reason Specialty Diagnoses / Referred By Referred To Procedures Contact Contact New Request Diagnostic Diagnoses Melena Calvo, Radiology Procedures XR CHEST 1 VW Flakito Smith Jr., MD [address] [place] [address] Radiology Services (STAT) Status Reason Specialty Diagnoses / Referred By Referred To Procedures Contact Contact New Request Diagnostic Diagnoses Melena Calvo, Radiology Procedures XR CHEST 1 VW Flakito Smith Jr., MD [address] [place] [address] (HALI) Status Reason Specialty Diagnoses / Referred By Referred To Procedures Contact Contact New Request EEG Diagnoses Seizures Flakito Calvo Procedures Electroencephalogram (EEG) - Duration of test: Continuous EEG Monitoring (LTM) Electroencephalogram (EEG) - Duration of test: 20-60 mins MD Lennie [address] [place] [address] (HALI) Status Reason Specialty Diagnoses / Referred By Referred To Procedures Contact Contact New Request EEG Diagnoses Seizures Flakito Calvo Procedures Electroencephalogram (EEG) - Duration of test: Continuous EEG Monitoring (LTM) Electroencephalogram (EEG) - Duration of test: 20-60 mins MD Lennie [address] [place] [address] MRI/CAT Scan (Routine) Status Reason Specialty Diagnoses / Referred By Referred To Procedures Contact Contact New Request Diagnostic Diagnoses Seizures LowEmili Radiology Procedures CT HEAD WO SHALINI Salas MD [address] [place] [id number] [place] [address] MRI/CAT Scan (Routine) Status Reason Specialty Diagnoses / Referred By Referred To Procedures Contact Contact New Request Diagnostic Diagnoses Seizures Low, Emili Radiology Procedures CT HEAD WO CONTRAST MD Maritza [address] [place] [address] [id number] [place] [address] Radiology Services (HALI) Status Reason Specialty Diagnoses / Referred By Referred To Procedures Contact Contact New Request Diagnostic Diagnoses Hematoma Aboueisha, Jerica, Radiology Procedures US UPPER ARM RIGHT US UPPER EXTREMITY VEIN WITH COMPRESSION RIGHT (ONLY FOR RULE OUT DVT) [address] [place] [address]. [place] [address] Radiology Services (Routine) Status Reason Specialty Diagnoses / Referred By Referred To Procedures Contact Contact New Request Diagnostic Diagnoses Pain of upper abdomen Muranova, Radiology Procedures XR TRELL Mcwilliams MD [address] [place] [phone] Radiology Services (Routine) Status Reason Specialty Diagnoses / Referred By Referred To Procedures Contact Contact New Request Diagnostic Diagnoses Pain of upper abdomen Muranova, Radiology Procedures XR TRELL Mcwilliams MD [address] [place] [phone] MRI/CAT Scan (STAT) Status Reason Specialty Diagnoses / Referred By Referred To Procedures Contact Contact New Request Diagnostic Diagnoses FIGUEROA (dyspnea on exertion) Zoran Padilla Radiology Procedures CT CHEST PULMONARY ANGIOGRAM CT THORAX W CONTRAST MD Kymberly [address] [place] [address]. [place] [address] Radiology Services (Routine) Status Reason Specialty Diagnoses / Referred By Referred To Procedures Contact Contact New Request Diagnostic Diagnoses Fatigue, unspecified type Nini Brown, Radiology Procedures XR SHOULDER 2+ VW RIGHT DO [address] [place] [address] Radiology Services (Routine) Status Reason Specialty Diagnoses / Referred By Referred To Procedures Contact Contact New Request Diagnostic Diagnoses Fatigue, unspecified type Nini Brown, Radiology Procedures XR SHOULDER 2+ VW RIGHT DO [address] [place] [address] Radiology Services (Routine) Status Reason Specialty Diagnoses / Referred By Referred To Procedures Contact Contact New Request Diagnostic Diagnoses Fatigue, unspecified type Brown, Shiwan, Radiology Procedures XR ELBOW <3 VW RIGHT DO [address] [place], [place] [phone] Radiology Services (Routine) Status Reason Specialty Diagnoses / Referred By Referred To Procedures Contact Contact New Request Diagnostic Diagnoses Fatigue, unspecified type Brown, Shiwan, Radiology Procedures XR HUMERUS 2 VW RIGHT DO [address] [place], [place] [phone] Radiology Services (Routine) Status Reason Specialty Diagnoses / Referred By Referred To Procedures Contact Contact New Request Diagnostic Diagnoses Fatigue, unspecified type Brown, Shiwan, Radiology Procedures XR ELBOW <3 VW RIGHT DO [address] [place], [place] [phone] Radiology Services (Routine) Status Reason Specialty Diagnoses / Referred By Referred To Procedures Contact Contact New Request Diagnostic Diagnoses Fatigue, unspecified type Brown, Shiwan, Radiology Procedures XR HUMERUS 2 VW RIGHT DO [address] [place], [place] [phone] Radiology Services (STAT) Status Reason Specialty Diagnoses / Referred By Referred To Procedures Contact Contact New Request Diagnostic Diagnoses FIGUEROA (dyspnea on exertion) Lizandro Loo, Radiology Procedures XR CHEST 1 VW [address] [place] [address] Radiology Services (STAT) Status Reason Specialty Diagnoses / Referred By Referred To Procedures Contact Contact New Request Diagnostic Diagnoses FIGUEROA (dyspnea on exertion) Lizandro Loo, Radiology Procedures XR CHEST 1 VW [address] [place] [address] Radiology Services (Routine) Status Reason Specialty Diagnoses / Referred By Referred To Procedures Contact Contact New Request Diagnostic Diagnoses Fatigue, unspecified type Dysphagia, unspecified type Uremia Chronic kidney disease, unspecified CKD stage Alex Diaz, Radiology Procedures Abdominal 1 View - To confirm nasogastric tube placement. MD Hoang [facility]. RT [address] [place] [address] Radiology Services (Routine) Status Reason Specialty Diagnoses / Referred By Referred To Procedures Contact Contact New Request Diagnostic Diagnoses Fatigue, unspecified type Dysphagia, unspecified type Uremia Chronic kidney disease, unspecified CKD stage Alex Diaz, Radiology Procedures Abdominal 1 View - To confirm nasogastric tube placement. MD Hoang [facility]. RT [address] [place] [address] Radiology Services (HALI) Status Reason Specialty Diagnoses / Referred By Referred To Procedures Contact Contact New Request Diagnostic Diagnoses Uremia Joe, Adnan, Radiology Procedures XR ABDOMEN [address] [place] [address]. [address] [place] [address] Radiology Services (HALI) Status Reason Specialty Diagnoses / Referred By Referred To Procedures Contact Contact New Request Diagnostic Diagnoses Uremia Joe, Adnan, Radiology Procedures XR ABDOMEN [address] [place] [address]. [address] [place] [address] Radiology Services (Routine) Status Reason Specialty Diagnoses / Referred By Referred To Procedures Contact Contact New Request Diagnostic Diagnoses Uremia Joe, Adnan, Radiology Procedures Abdominal 1 View - To confirm Dobhoff / Small-bore (non-styleted) enteral feeding tube placement. MD Hoang [facility]. RT [address] [place] [address] Radiology Services (Routine) Status Reason Specialty Diagnoses / Referred By Referred To Procedures Contact Contact New Request Diagnostic Diagnoses Uremia Joe, Adnan, Radiology Procedures Abdominal 1 View - To confirm Dobhoff / Small-bore (non-styleted) enteral feeding tube placement. MD Hoang [facility]. RT [address] [place] [address] Radiology Services (STAT) Status Reason Specialty Diagnoses / Referred By Referred To Procedures Contact Contact New Request Diagnostic Diagnoses Fatigue, unspecified type Moore, Radiology Procedures XR CHEST 1 GARDENIA Daley MD [address] [place] [address] [place] [address] Radiology Services (STAT) Status Reason Specialty Diagnoses / Referred By Referred To Procedures Contact Contact New Request Diagnostic Diagnoses Fatigue, unspecified type Moore, Radiology Procedures XR CHEST 1 GARDENIA Daley MD [address] [place] [address] [address] [place] [address] (Routine) Status Reason Specialty Diagnoses / Referred By Referred To Procedures Contact Contact New Request Diagnostic Diagnoses Chronic kidney disease, unspecified CKD stage Moore, Radiology Procedures FL TIME OR (NON-REPORTABLE) MD Thuy [address] [place] [address] [place] [address] (Routine) Status Reason Specialty Diagnoses / Referred By Referred To Procedures Contact Contact New Request Diagnostic Diagnoses Chronic kidney disease, unspecified CKD stage Moore, Radiology Procedures FL TIME OR (NON-REPORTABLE) MD Thuy [address] [place] [address] [place] [address] Radiology Services (STAT) Status Reason Specialty Diagnoses / Referred By Referred To Procedures Contact Contact New Request Diagnostic Diagnoses Uremia Nicola, Radiology Procedures US RETROPERITONEAL COMPLETE US RENAL WITH DOPPLER MD Aaron [address] [place] [address] [place] [address] MRI/CAT Scan (Routine) Status Reason Specialty Diagnoses / Referred By Referred To Procedures Contact Contact New Request Diagnostic Diagnoses Dysphagia, unspecified type Landon, Rafal, Radiology Procedures CT HEAD WO CONTRAST DO [address] [place], [place] [address]vd. [address] [place] [address] MRI/CAT Scan (Routine) Status Reason Specialty Diagnoses / Referred By Referred To Procedures Contact Contact New Request Diagnostic Diagnoses Dysphagia, unspecified type Landon, Rafal, Radiology Procedures CT HEAD WO CONTRAST [address] [place] [address] Radiology Services (Routine) Status Reason Specialty Diagnoses / Referred By Referred To Procedures Contact Contact New Request Diagnostic Diagnoses Fatigue, unspecified type Rafal Landon, Radiology Procedures XR CHEST [address] [place] [address] Radiology Services (Routine) Status Reason Specialty Diagnoses / Referred By Referred To Procedures Contact Contact New Request Diagnostic Diagnoses Fatigue, unspecified type Rafal Landon, Radiology Procedures XR CHEST [address] [place] [address] Reason for Visit Reason Comments Other "lab draw" Tremors Auth/Cert Status Reason Specialty Diagnoses / Referred By Referred To Procedures Contact Contact [facility] [address] [place] [address] [place] [address] Encounter Details Date Type Department Care Team Description 04/13/2019 - Hospital Encounter Acute Care for the Rafal Landon [address] [place] [id number] Uremia 05/18/2019 Elderly (DAKOTA 11D) Alex Diaz MD [address] [place] [address]. [address] [place] [address] [phone] [facility] [address] [place] [address] [id number] [place], [place] [address] [place] [address] Nini Brown DO [facility] [place] [address] [phone] Flakito Calvo Jr., MD [address] [place] [address] [id number] [place] [address] [phone] Olivier Hansen Eliza [address] [facility] [id number] [place], [place] [address] Edouard Joe Jeffers [address] [facility] [id number] [place], [place] 7[address] Lizandro Loo MD [address] [place] [address] Allergies Active Allergy Reactions Severity Noted Date Comments Heparin Other - See comments 05/06/2019 Bleeding documented as of this encounter (statuses as of 05/18/2019) Medications Medication Sig Dispensed Refills Start Date End Date Status sodium bicarbonate Take 650 mg 0 05/17/2019 Discontinued 650 mg tablet by mouth daily. allopurinol 100 mg Take 100 mg 0 05/17/2019 Discontinued tablet by mouth daily. famotidine 40 mg Take 40 mg by 0 05/17/2019 Discontinued tablet mouth daily. FLUoxetine 20 mg Take 20 mg by 0 05/17/2019 Discontinued capsule mouth daily. gabapentin 100 mg Take 100 mg 0 05/17/2019 Discontinued capsule by mouth 3 (three) times daily. metoprolol Take by 0 05/17/2019 Discontinued succinate 50 mg mouth. CSpX predniSONE 10 mg Take 10 mg by 0 05/17/2019 Discontinued tablet mouth daily. documented as of this encounter (statuses as of 05/18/2019) Active Problems Problem Noted Date Paroxysmal atrial fibrillation with RVR 04/19/2019 FIGUEROA (dyspnea on exertion) 04/16/2019 Bradycardia 04/16/2019 Uncontrolled hypertension 04/16/2019 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 04/16/2019 Uremia 04/13/2019 Melena 04/13/2019 Overview: Added automatically from request for surgery [id number] documented as of this encounter (statuses as of 05/18/2019) Social History Tobacco Use Types Packs/Day Years Used Date Never Smoker Smokeless Tobacco: Never Used Alcohol Use Drinks/Week oz/Week Comments Not Currently Sex Assigned at Date Recorded Not on file Job Start Date Occupation Industry Not on file Not on file Not on file Travel History Travel Start Travel End No recent travel history available. documented as of this encounter Last Filed Vital Signs Vital Sign Reading Time Taken Comments Blood Pressure 145/78 05/18/2019 11:27 AM CDT Pulse 95 05/18/2019 11:27 AM CDT Temperature 37.1 C (98.8 F) 05/18/2019 11:27 AM CDT Respiratory Rate 18 05/18/2019 11:27 AM CDT Oxygen Saturation 98% 05/18/2019 11:27 AM CDT Inhaled Oxygen Concentration - - Weight 108 kg (238 lb) 05/18/2019 3:37 AM CDT Height 160 cm (5' 3") 05/09/2019 5:32 PM CDT Body Mass Index 42.16 05/09/2019 5:32 PM CDT documented in this encounter Discharge Instructions AppointmentsEvie Juan - 04/19/2019 10:10 AM CDTYour Follow Up Appointment with Dr Levy ThursdayMay 11 @ 12:30p.m [address] [place] [address] [phone] If you need to cancel or make changes to this appointment please call the office as soon as possible. documented in this encounter Progress Notes Genesis Matt RN - 05/18/2019 9:51 AM CDTCare Management Discharge Disposition Note (DCDN) 5-2-1 Interventions: Disease specific education;Intensive medication reconciliation/management;Teachback;Appropriate palliative care referral;Clear discharge plan;Follow-up appointments 5-2-1 Providers: Physician;Clinical Research Scientist/Miniature Model Maker 5-2-1 Patient Capacity Improvements: Transportation arrangements Discharge Plan for ongoing care and services: Hospice Discharge location(s): Hospice location: [facility], [address] [place] () [phone] (F) [phone] Patient choice completed for referred services: Yes Discussed with patient/patients family involved in decision making: Yes Patient or family caregiver understands, and agrees with discharge plan. Community resources/referrals made or provided to patient: No Resources/Referrals: Transportation: Ambulance Nursing informed of discharge plan: Yes Name of RN informed: Lorna Estimated discharge date: 05/18/19 Time: 1200 Additional Information: EMS P:[phone] scheduled to p/u patient today at 1200 to transport home. [facility] to follow patient. FAITH/CORI Name & Contact number: Genesis Matt RN Ph. [phone] The following information has been provided to the facility noted above: reason for the patient discharge or transfer; patients physical and psychosocial status; summary of care, treatment, servicesprovided to patient; and the patient progress toward goals. Genesis Lao RN - 05/18/2019 9:41 AM CDTCare Coordinator Update CM spoke with [address] [phone] fax [phone], hospital bed being delivered to patient apartment this morning at 1100. CM tried calling patient daughter, Fidel, no answer and left message to return call. CM called patient granddaughter, Olegario, she said that her mom had furniture moved out yesterday and everything is ready for patient to return home. CM informed her that EMS P: is scheduled to p/u patient today at 1200 to transport home. D/C packet with OOH DNR given to RN, team aware. Genesis Matt RN,BSN Manager Medicaid Department of Care Management [phone] signed by Genesis Matt RN at 05/18/2019 9:44 AM Olivia Arreola OT - 05/18/2019 9:20 AM CDTOCCUPATIONAL THERAPY DISCHARGE NOTE: Patient seen for initial evaluation and Patient/Caregivier Education and Daily living activities. Goals not met secondary to discharge home with hospice care. Please see consult dated 04/29/19 for details on functional status. Discharge acute care OT at this time. Olivia Flores OTR [phone] Jerrell Guerra MD - 05/17/2019 6:00 PM CDT PGY- 1 Medicine Progress Note Date of Service: 05/17/2019 18:01 Chief Complaint: melena 24-HOUR EVENTS: NAEO SUBJECTIVE: Patient appears to be stable. No BM and no bleeding from IV sites. PHYSICAL EXAM: Vitals: 05/17/19 0448 05/17/19 0700 05/17/19 1135 05/17/19 1517 BP: (!) 143/84 133/63 120/75 (!) 145/74 Patient Position: Supine Supine Lying left side Lying left side Pulse: 100 97 86 100 Resp: Temp: 36.7 C (98 F) 36.7 C (98 F) 37.2 C (98.9 F) 36.8 C (98.3 F ) TempSrc: Oral Oral Oral Oral SpO2: 100% 100% 96% 97% Weight: Height: Intake/Output Summary (Last 24 hours) at 05/17/2019 1801 Last data filed at 05/17/2019 1135 Gross per 24 hour Intake Output 500 ml Net -500 ml General: drowsy and no apparent distress HEENT: moist mucous membranes Neck: supple, no lymphadenopathy, no bruits, no JVD Lungs: clear to auscultation bilaterally Cardio: S1, S2 normal; no murmurs, rubs or gallops Extremities: bilateral pitting edema LABS/IMAGING - reviewed ASSESSMENT/PLAN Will Zack Hodge is a 78 year old female admitted to the hospital with: Grade D esophagitis Duodenal erosions UGIB Symptomatic anemia HFpEF HTN ESRD Chronic steroid use 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 - palliative care assessment: family and patient do not want further dialysis given previous mishaps - patient is hospice, comfort care - possible discharge for tomorrow PAIN: Controlled Prophylaxis: DVT- Contraindicated: Heparin Induced Thrombocytopenia and Thrombus (JEZ) Stress Ulcer: pantoprazole Code Status: addressed: full code Disposition Anticipated Discharge Date : 05/18/19 Jerrell Nelson MD Internal Medicine, PGY-1 [place] Team Pager#: [phone] END OF DAILY PROGRESS NOTE HOSPITAL COURSE Brandon Hodge is a 78 y.o female with PMH of ESRD (newly declared),CHFpEF,HTN , RA, gout and dementia who presents as a transfer from [facility] due to concerns of HITand acute hypoxic respiratory failureinitially. Patient had hematology evaluate her due to concerns of HIT, however HIT antibody was negative on ARUP. She was being managed on the floor when she had sudden drop of Hgb with reports of melena overnight. During dialysis, she suffered a witness "seizure" and Rapid was called. Neurology was consulted and followed patient. EEG was negative for seizures. Nephro thinks it is a dialyzer reaction. With stability, she returned to the floor. She had an episode of melena with repeat Hgb dropping to5.6, putting her back to MICU. GI was consulted and ppi gtt was started. 3 units of pRBC transfused.Grade D esophagitis seen on EGD. With stability, nephro was consulted for HD scheduling. She was transferred back to floor.We monitor patients condition and wait for possible SNF placement for this patient after dialysis on 05/05/19 .Duringone dialysis sessionpatient had an episode of hypotension. Patient had a large bloody BM(melena)today in the morning. HGB dropped to 5.9 , we transfused 2 units of blood and 1 unit of cryo. She was sent to ICU and GI repeated EGD showing improved esophagus and 2 duodenal ulcer with 1 given epi injection. Patient Hgb remained stable after procedure. She has been hemodynamically stable with >24 hours of observation in the ICU. From ICU standpoint,stable for transfer to the floor. Nephrology will assess for need for dialysis. Previous hypotensive episode during dialysis could be attributable to dialyzer reaction and/or UGIB. Patient had another episode of melena, HGB dropped to 6.9 , 1 unit of RBCs transfused. Patient is hemodynamically stable, no GI bleeding. Palliative care team is following patient. Patient and family do not want continuing dialysis given previous mishaps. Palliative team deemed patient hospice eligible. Patient is now hospice and comfort care. CURRENT MEDICATIONS - reviewed. Current Facility-Administered Medications Medication Dose Route Frequency Last Rate Last Dose acetaminophen (TYLENOL) tablet 650 mg 650 mg Oral Q6HPRN bisacodyl (DULCOLAX) suppository 10 mg 10 mg Rectal QDAILYPRN sennosides (SENOKOT) tablet 8.6 mg 8.6 mg Oral BID 8.6 mg at 05/16/192106 esomeprazole (NEXIUM) 40 mg in NaCl 0.9% (NS) 100 mL MINI-BAG 40 mg IV Piggyback Q12H 40 mg at 05/17/19 0816 metoprolol tartrate (LOPRESSOR) tablet 25 mg 25 mg Oral BID 25 mg at 2106 FENTanyl PF (SUBLIMAZE (PF)) injection Slow IV Push PRN 25 mcg at 1910 hydrocortisone (CORTEF) tablet 10 mg 10 mg Oral QAM 10 mg at 05/16/19 09 hydrocortisone (CORTEF) tablet 5 mg 5 mg Oral QPM 5 mg at 05/15/19 173 midazolam (VERSED) injection IV Push PRN 0.5 mg at 05/09/191910 metoclopramide HCl (REGLAN) 5 mg in NaCl 0.9% (NS) piggyback 5 mg IV Piggyback TIDPRN MEALS sucralfate (CARAFATE) 100 mg/mL suspension 1,000 mg 1 g Oral TID 1,000 mg at 05/16/192106 Polyethylene Glycol 3350 (MIRALAX) powder 17 g 17 g Oral BID 17 g at 2106 glucagon (GLUCAGEN DIAGNOSTIC KIT) injection 1 mg 1 mg Intramuscular PRN 1 mg at 04/20/19 1154 calcitriol (ROCALTROL) capsule 0.5 mcg 0.5 mcg Oral DAILY 0.5 mcg at 0908 foLIC acid (FOLATE) tablet 1 mg 1 mg Oral DAILY AT 1700 1 mg at 05/15/19 173 magnesium oxide (MAG-OX 400) tablet 400 mg 400 mg Oral BID 400 mg at 2106 traMADOL (ULTRAM) tablet 50 mg 50 mg Oral BIDPRN 50 mg at 05/15/19 2216 docusate (COLACE) capsule 100 mg 100 mg Oral BID 100 mg at 05/16/192106 Associated attestation - Lizandro Loo MD - 05/17/2019 8:27 PM CDTI personally examined the patient on 05/17/[address] Jerrell Nelson's resident note as written with the following additions: Family called this afternoon stating they were not ready for patient to be discharged to home, will discharge tomorrow morning. I actively participated in the decision- making process. Please see the resident's note for additional details. Lizandro Loo MD Internal Medicine Genesis Matt RN - 05/17/2019 9:33 AM CDTCare Management Discharge Disposition Note (DCDN) -2- Interventions: Disease specific education;Intensive medication reconciliation/management;Teachback;Appropriate palliative care referral;Clear discharge plan;Follow-up appointments -2- Providers: Physician;Clinical Research Scientist/Miniature Model Maker -2-1 Patient Capacity Improvements: Transportation arrangements Discharge Plan for ongoing care and services: Hospice Discharge location(s): Hospice location: [facility], [address] [place] [address] () [phone] (F) Patient choice completed for referred services: Yes Discussed with patient/patients family involved in decision making: Yes Patient or family caregiver understands, and agrees with discharge plan. Community resources/referrals made or provided to patient: No Resources/Referrals: Transportation: Ambulance Nursing informed of discharge plan: Yes Name of RN informed: Lorna Estimated discharge date: 05/18/19 Time: 1200 Additional Information: EMS P:[phone] scheduled to p/u patient 05/18/19 at 1200 [facility] FAITH/CORI Name & Contact number: Genesis Matt RN Ph. [phone] The following information has been provided to the facility noted above: reason for the patient discharge or transfer; patients physical and psychosocial status; summary of care, treatment, servicesprovided to patient; and the patient progress toward goals. Genesis Lao RN - 05/17/2019 9:17 AM CDTCare Coordinator Update FAITH spoke with patient granddaughter, Olegario, [facility] scheduled to do paperwork this morning around 0930. FAITH informed her patient ready to discharge today once hospice is in place, arranged EMS P:[phone] to merchandise pickup/receiving associate patient today at 1500 to transport patient home. FAITH reached out to [address] [address] fax [phone] to confirm that equipment will be delivered to patient home prior to patient discharge, waiting for confirmation. D/C packet given to RN. Update 05/17/19 1446 CM was informed by [facility] hospice that equipment will be delivered prior to patient leaving with EMS p/u at 1500. Update 05/17/19 135 CM received call from [facility] stating patient daughter has not moved bed and does not have roomin her apartment for hospital bed. CM tried calling patient daughter 2 times this am, no call back. Attempted again and was able to talk with Fidel, she said that her son is moving hospital bed this evening. CM informed her patient medically ready to discharge, she said they are unable to make room for hospital bed until he gets her current bed out of room and there is no room in apartment for hospital bed at this time. CM informed team, ok with holding discharge until tomorrow at 1200, [facility] will deliver hospital bed tomorrow at 1100. CM updated EMS, RN and patient daughter. EMS p/u patient tomorrow 05/18/19 at 1200 to transport home. Genesis Matt RN,BSN Manager Medicaid Department of Care Management [phone] signed by Genesis Matt RN at 05/17/2019 1:55 PM Di Alba ACNP - 05/16/2019 3:13 PM CDTPalliative care progress note Date of service 05/16/2019 Patient with dementia and no family at bedside. manager gift coordinating with family to arrange [facility] hospice - plan DC tomorrow. Palliative care will sign off thank you for the consult. Di BARNHART- Department of Palliative Care [phone] Pipo Landeros - 05/16/2019 12:23 PM CDTPALLIATIVE CARE PLASMA CUTTING MACHINE OPERATOR Pt somnolent. No family present. Will follow up as time allows. Genesis Loa RN - 2018 9:36 AM CDTCare Coordinator Update FAITH spoke with team, patient family in agreement with hospice. CM tried calling patient daughter, Fidel P:[phone], no answer, left message to return call to discuss hospice company choices. Update 05/16/19 1120 CM called and spoke with Fidel, patient daughter, she is in agreement with hospice. CM discussed innetwork list of hospice companies, she chose [facility] [address] [place] [address] fax [phone]. Hospice order placed and sent to [facility]. CM informed her [facility] will provide equipment needed, patient does not have hospital bed at home, Fidel informed CM she will need her son to assist her with moving furniture and he does not get off work [id number] this evening, she does not have anyone else available to help her move furniture out of the house today. CM updated team. Will arrange EMS to transport once secured hospice and necessary equipmenthas been delivered. Update 05/16/19 1322 [facility] has accepted patient and scheduled to do admission paperwork and deliver equipment to patient home tomorrow am. FAITH informed team. Genesis Matt RN,BSN Manager Medicaid Department of Care Management [phone] signed by Genesis Matt RN at 05/16/2019 1:23 PM Jerrell Guerra MD - 05/16/2019 7:15 AM CDT PGY- 1 Medicine Progress Note Date of Service: 05/16/2019 07:16 Chief Complaint: melena 24-HOUR EVENTS: NAEO SUBJECTIVE: Patient appears to be stable. No BM and no bleeding from IV sites. PHYSICAL EXAM: Vitals: 05/15/19 1550 05/15/19 1922 05/15/19 2325 05/16/19 0321 BP: 116/87 (!) 144/79 112/51 118/63 Patient Position: Lying right side Supine Lying left side Pulse: 70 88 76 80 Resp: (!) 70 18 18 18 Temp: 36.7 C (98.1 F) 36.9 C (98.4 F) 36.8 C (98.3 F) 36.9 C ( 98.4 F) TempSrc: Oral Oral Oral SpO2: 98% 100% 98% 99% Weight: Height: Intake/Output Summary (Last 24 hours) at 05/16/2019 0716 Last data filed at 05/15/2019 2216 Gross per 24 hour Intake 140 ml Output Net 140 ml General: drowsy and no apparent distress HEENT: moist mucous membranes Neck: supple, no lymphadenopathy, no bruits, no JVD Lungs: clear to auscultation bilaterally Cardio: S1, S2 normal; no murmurs, rubs or gallops Extremities: bilateral pitting edema LABS/IMAGING - reviewed ASSESSMENT/PLAN Brandon Hodge is a 78 year old female admitted to the hospital with: Grade D esophagitis Duodenal erosions UGIB Symptomatic anemia HFpEF HTN ESRD Chronic steroid use 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 - palliative care assessment: family and patient do not want further dialysis given previous mishaps - patient is hospice, comfort care - possible discharge for tomorrow PAIN: Controlled Prophylaxis: DVT- Contraindicated: Heparin Induced Thrombocytopenia and Thrombus (JEZ) Stress Ulcer: pantoprazole Code Status: addressed: full code Disposition Anticipated Discharge Date : Barriers to Discharge: Jerrell Nelson MD Internal Medicine, PGY-1 [place] Team Pager#: [phone] END OF DAILY PROGRESS NOTE HOSPITAL COURSE Brandon Hodge is a 78 y.o female with PMH of ESRD (newly declared),CHFpEF,HTN , RA, gout and dementia who presents as a transfer from [facility] due to concerns of HITand acute hypoxic respiratory failureinitially. Patient had hematology evaluate her due to concerns of HIT, however HIT antibody was negative on ARUP. She was being managed on the floor when she had sudden drop of Hgb with reports of melena overnight. During dialysis, she suffered a witness "seizure" and Rapid was called. Neurology was consulted and followed patient. EEG was negative for seizures. Nephro thinks it is a dialyzer reaction. With stability, she returned to the floor. She had an episode of melena with repeat Hgb dropping to5.6, putting her back to MICU. GI was consulted and ppi gtt was started. 3 units of pRBC transfused.Grade D esophagitis seen on EGD. With stability, nephro was consulted for HD scheduling. She was transferred back to floor.We monitor patients condition and wait for possible SNF placement for this patient after dialysis on 05/05/19 .Duringone dialysis sessionpatient had an episode of hypotension. Patient had a large bloody BM(melena)today in the morning. HGB dropped to 5.9 , we transfused 2 units of blood and 1 unit of cryo. She was sent to ICU and GI repeated EGD showing improved esophagus and 2 duodenal ulcer with 1 given epi injection. Patient Hgb remained stable after procedure. She has been hemodynamically stable with >24 hours of observation in the ICU. From ICU standpoint,stable for transfer to the floor. Nephrology will assess for need for dialysis. Previous hypotensive episode during dialysis could be attributable to dialyzer reaction and/or UGIB. Patient had another episode of melena, HGB dropped to 6.9 , 1 unit of RBCs transfused. Patient is hemodynamically stable, no GI bleeding. Palliative care team is following patient. Patient and family do not want continuing dialysis given previous mishaps. Palliative team deemed patient hospice eligible. Patient is now hospice and comfort care. CURRENT MEDICATIONS - reviewed. Current Facility-Administered Medications Medication Dose Route Frequency Last Rate Last Dose acetaminophen (TYLENOL) tablet 650 mg 650 mg Oral Q6HPRN bisacodyl (DULCOLAX) suppository 10 mg 10 mg Rectal QDAILYPRN sennosides (SENOKOT) tablet 8.6 mg 8.6 mg Oral BID 8.6 mg at 05/15/19 221 esomeprazole (NEXIUM) 40 mg in NaCl 0.9% (NS) 100 mL MINI-BAG 40 mg IV Piggyback Q12H 40 mg at 05/15/19 221 metoprolol tartrate (LOPRESSOR) tablet 25 mg 25 mg Oral BID 25 mg at 221 FENTanyl PF (SUBLIMAZE (PF)) injection Slow IV Push PRN 25 mcg at 1910 hydrocortisone (CORTEF) tablet 10 mg 10 mg Oral QAM 10 mg at 05/14/19 0904 hydrocortisone (CORTEF) tablet 5 mg 5 mg Oral QPM 5 mg at 05/15/19 1736 midazolam (VERSED) injection IV Push PRN 0.5 mg at 05/09/191910 metoclopramide HCl (REGLAN) 5 mg in NaCl 0.9% (NS) piggyback 5 mg IV Piggyback TIDPRN MEALS sucralfate (CARAFATE) 100 mg/mL suspension 1,000 mg 1 g Oral TID 1,000 mg at 05/15/192214 Polyethylene Glycol 3350 (MIRALAX) powder 17 g 17 g Oral BID 17 g at 2215 glucagon (GLUCAGEN DIAGNOSTIC KIT) injection 1 mg 1 mg Intramuscular PRN 1 mg at 04/20/19 1154 calcitriol (ROCALTROL) capsule 0.5 mcg 0.5 mcg Oral DAILY 0.5 mcg at 0854 foLIC acid (FOLATE) tablet 1 mg 1 mg Oral DAILY AT 1700 1 mg at 05/15/19 1736 magnesium oxide (MAG-OX 400) tablet 400 mg 400 mg Oral BID 400 mg at 2215 traMADOL (ULTRAM) tablet 50 mg 50 mg Oral BIDPRN 50 mg at 05/15/192215 docusate (COLACE) capsule 100 mg 100 mg Oral BID 100 mg at 05/15/192215 Associated attestation - Lizandro Loo MD - 05/17/2019 8:28 PM CDTI personally examined the patient on 05/16/[address] Jerrell Nelson's resident note as written with the following additions: None. I actively participated in the decision-making process. Please see the resident's note for additional details. Lizandro Loo MD Internal Medicine Kiran Franklin MD - 05/15/2019 8:19 AM CDT PGY- 1 Medicine Progress Note Date of Service: 05/15/2019 08:19 Chief Complaint: melena 24-HOUR EVENTS: - no acute events - palliative care on-board SUBJECTIVE: Patient appears to be stable. She is not oriented but was able to answer question. Tolerating diet and has not a BM since yesterday. PHYSICAL EXAM: Vitals: 05/14/19 1155 05/14/19 2015 05/15/19 0043 05/15/19 0454 BP: (!) 141/89 112/65 121/69 133/62 Patient Position: Supine Supine Supine Pulse: 87 80 71 97 Resp: 18 18 18 Temp: 36.5 C (97.7 F) 36.7 C (98 F) 36.8 C (98.2 F) 36.6 C (97.8 F) TempSrc: Axillary Oral Axillary SpO2: 97% 99% 99% 100% Weight: Height: No intake or output data in the 24 hours ending 05/15/19 0819 General: alert and oriented x 1 (only to name); no apparent distress HEENT: pupils equal, round, reactive to light; extraocular movements intact; oropharynx clear; moistmucous membranes Neck: supple, no lymphadenopathy, no bruits, no JVD Lungs: clear to auscultation bilaterally Cardio: S1, S2 normal; no murmurs, rubs or gallops Extremities: bilateral putting edema LABS/IMAGING - reviewed, pertinent results as below: ASSESSMENT/PLAN Will Zack Hodge is a 78 year old female admitted to the hospital with: Grade D esophagitis Duodenal erosions UGIB Symptomatic anemia HFpEF HTN ESRD Chronic steroid use 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 - palliative care assessment: family and patient do not want further dialysis given previous mishaps; deem patient hospice eligible -restarted on Metoprolol 25 mg BID -monitoring hemodynamic stability and H&H -f/u nephrology recs ( reassess need for dialysis tomorrow) -f/u GI recs -hold anti-hypertension meds for now PAIN: Controlled Prophylaxis: DVT- Contraindicated: Heparin Induced Thrombocytopenia and Thrombus (JEZ) Stress Ulcer: pantoprazole Code Status: addressed: full code Disposition Anticipated Discharge Date : Barriers to Discharge: Kiran Franklin MD Internal Medicine PGY1 [place] Team Pager#: [phone] END OF DAILY PROGRESS NOTE HOSPITAL COURSE Brandon Hodge is a 78 y.o female with PMH of ESRD (newly declared),CHFpEF,HTN , RA, gout and dementia who presents as a transfer from [facility] due to concerns of HITand acute hypoxic respiratory failureinitially. Patient had hematology evaluate her due to concerns of HIT, however HIT antibody was negative on ARUP. She was being managed on the floor when she had sudden drop of Hgb with reports of melena overnight. During dialysis, she suffered a witness "seizure" and Rapid was called. Neurology was consulted and followed patient. EEG was negative for seizures. Nephro thinks it is a dialyzer reaction. With stability, she returned to the floor. She had an episode of melena with repeat Hgb dropping to5.6, putting her back to MICU. GI was consulted and ppi gtt was started. 3 units of pRBC transfused.Grade D esophagitis seen on EGD. With stability, nephro was consulted for HD scheduling. She was transferred back to floor.We monitor patients condition and wait for possible SNF placement for this patient after dialysis on 05/05/19 .Duringone dialysis sessionpatient had an episode of hypotension. Patient had a large bloody BM(melena)today in the morning. HGB dropped to 5.9 , we transfused 2 units of blood and 1 unit of cryo. She was sent to ICU and GI repeated EGD showing improved esophagus and 2 duodenal ulcer with 1 given epi injection. Patient Hgb remained stable after procedure. She has been hemodynamically stable with >24 hours of observation in the ICU. From ICU standpoint,stable for transfer to the floor. Nephrology will assess for need for dialysis. Previous hypotensive episode during dialysis could be attributable to dialyzer reaction and/or UGIB. Patient had another episode of melena, HGB dropped to 6.9 , 1 unit of RBCs transfused. Patient is hemodynamically stable, no GI bleeding. Palliative care team is following patient. Patient and family do not want continuing dialysis given previous mishaps. Palliative team deemed patient hospice eligible. CURRENT MEDICATIONS - reviewed. Current Facility-Administered Medications Medication Dose Route Frequency Last Rate Last Dose esomeprazole (NEXIUM) 40 mg in NaCl 0.9% (NS) 100 mL MINI-BAG 40 mg IV Piggyback Q12H 40 mg at 05/14/192235 metoprolol tartrate (LOPRESSOR) tablet 25 mg 25 mg Oral BID 25 mg at 2235 FENTanyl PF (SUBLIMAZE (PF)) injection Slow IV Push PRN 25 mcg at 191 hydrocortisone (CORTEF) tablet 10 mg 10 mg Oral QAM 10 mg at 05/14/19 0904 hydrocortisone (CORTEF) tablet 5 mg 5 mg Oral QPM 5 mg at 05/14/192236 midazolam (VERSED) injection IV Push PRN 0.5 mg at 05/09/19 191 metoclopramide HCl (REGLAN) 5 mg in NaCl 0.9% (NS) piggyback 5 mg IV Piggyback TIDPRN MEALS sucralfate (CARAFATE) 100 mg/mL suspension 1,000 mg 1 g Oral TID 1,000 mg at 05/14/192232 Polyethylene Glycol 3350 (MIRALAX) powder 17 g 17 g Oral BID 17 g at 223 glucagon (GLUCAGEN DIAGNOSTIC KIT) injection 1 mg 1 mg Intramuscular PRN 1 mg at 04/20/19 1154 calcitriol (ROCALTROL) capsule 0.5 mcg 0.5 mcg Oral DAILY 0.5 mcg at 0904 foLIC acid (FOLATE) tablet 1 mg 1 mg Oral DAILY AT 1700 1 mg at 05/14/19 1824 magnesium oxide (MAG-OX 400) tablet 400 mg 400 mg Oral BID 400 mg at 2235 traMADOL (ULTRAM) tablet 50 mg 50 mg Oral BIDPRN 50 mg at 05/02/19 0929 docusate (COLACE) capsule 100 mg 100 mg Oral BID 100 mg at 05/14/192235 Associated attestation - Lizandro Loo MD - 05/15/2019 5:21 PM CDTI personally examined the patient on 05/15/[address] Kiran Franklin's resident note as written with the following additions: Discussion with family today, per Nephro last week not candidate fordialysis, rec'd palliative care/ hospice which family agrees to. CM/SW notified and will be working on discharge to home with hospice. Family and patient prefer to have hospice at home rather than facility. I actively participated in the decision-making process. Please see the resident's note for additional details. Liazndro Loo MD Internal Medicine Poppy Banks MD - 05/14/2019 10:12 AM CDT PGY- 1 Medicine Progress Note Date of Service: 05/14/2019 10:12 Chief Complaint: melena 24-HOUR EVENTS: - no acute events - HGB dropped to 7.2, but no bloody BM/ melena - palliative care on-board SUBJECTIVE: Patient appears to be at her baseline mental status; asked the nurse how she is doing; no acute events, no melanotic stool PHYSICAL EXAM: Vitals: 05/13/19 2346 05/14/19 0354 05/14/19 0640 05/14/19 0748 BP: (!) 146/91 (!) 142/58 (!) 142/91 BP Location: Patient Position: Supine Lying left side Supine Pulse: 93 93 88 Resp: 20 20 18 20 Temp: 36.9 C (98.4 F) 37.2 C (98.9 F) 36.6 C (97.9 F) TempSrc: Oral Oral Axillary SpO2: 99% 96% 95% 99% Weight: Height: Intake/Output Summary (Last 24 hours) at 05/14/2019 1012 Last data filed at 05/14/2019 0748 Gross per 24 hour Intake Output 500 ml Net -500 ml General: alert and oriented x 1; no apparent distress HEENT: pupils equal, round, reactive to light; extraocular movements intact; oropharynx clear; moistmucous membranes Neck: supple, no lymphadenopathy, no bruits, no JVD Lungs: clear to auscultation bilaterally Cardio: S1, S2 normal; no murmurs, rubs or gallops Extremities: bilateral putting edema LABS/IMAGING - reviewed, pertinent results as below: ASSESSMENT/PLAN Will Zack Hodge is a 78 year old female admitted to the hospital with: Grade D esophagitis Duodenal erosions UGIB Symptomatic anemia HFpEF HTN ESRD Chronic steroid use 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 - paliative -restarted on Metoprolol 25 mg BID -monitoring hemodynamic stability and H&H -c/w CBC, BMP -f/u nephrology recs ( reassess need for dialysis tomorrow) -f/u GI recs -hold anti-hypertension meds for now PAIN: Controlled Prophylaxis: DVT- Contraindicated: Heparin Induced Thrombocytopenia and Thrombus (JEZ) Stress Ulcer: pantoprazole Code Status: addressed: full code Disposition Anticipated Discharge Date : Barriers to Discharge: Poppy Banks MD PGY-1, Neurology [place] team Pager [phone] END OF DAILY PROGRESS NOTE HOSPITAL COURSE Brandon Hodge is a 78 y.o female with PMH of ESRD (newly declared),CHFpEF,HTN , RA, gout and dementia who presents as a transfer from [facility] due to concerns of HITand acute hypoxic respiratory failureinitially. Patient had hematology evaluate her due to concerns of HIT, however HIT antibody was negative on ARUP. She was being managed on the floor when she had sudden drop of Hgb with reports of melena overnight. During dialysis, she suffered a witness "seizure" and Rapid was called. Neurology was consulted and followed patient. EEG was negative for seizures. Nephro thinks it is a dialyzer reaction. With stability, she returned to the floor. She had an episode of melena with repeat Hgb dropping to5.6, putting her back to MICU. GI was consulted and ppi gtt wasstarted. 3 units of pRBC transfused. Grade D esophagitis seen on EGD. With stability, nephro was consulted for HD scheduling. She was transferred back to floor.We monitor patients condition and wait for possible SNF placement for this patient after dialysis on 05/05/19 .Duringone dialysis sessionpatient had an episode of hypotension. Patient had a large bloody BM(melena)today in the morning. HGB dropped to 5.9 , we transfused2 units of blood and 1 unit of cryo. She was sent to ICU and GI repeated EGD showing improved esophagus and 2 duodenal ulcer with 1 given epi injection. Patient Hgb remained stable after procedure. She has been hemodynamically stable with >24 hours of observation in the ICU. From ICU standpoint, stable for transfer to the floor. Nephrology will assess for need for dialysis. Previous hypotensive episode during dialysis could be attributable to dialyzer reaction and/or UGIB. Patient had another episode of melena, HGB dropped to 6.9 , 1 unit of RBCs transfused. Patient is hemodynamically stable, no GI bleeding. Consider dialysis tomorrow. CURRENT MEDICATIONS - reviewed. Current Facility-Administered Medications Medication Dose Route Frequency Last Rate Last Dose metoprolol tartrate (LOPRESSOR) tablet 25 mg 25 mg Oral BID 25 mg at 0904 FENTanyl PF (SUBLIMAZE (PF)) injection Slow IV Push PRN 25 mcg at 1910 hydrocortisone (CORTEF) tablet 10 mg 10 mg Oral QAM 10 mg at 05/14/19903 hydrocortisone (CORTEF) tablet 5 mg 5 mg Oral QPM 5 mg at 05/13/192116 midazolam (VERSED) injection IV Push PRN 0.5 mg at 05/09/191910 metoclopramide HCl (REGLAN) 5 mg in NaCl 0.9% (NS) piggyback 5 mg IV Piggyback TIDPRN MEALS sucralfate (CARAFATE) 100 mg/mL suspension 1,000 mg 1 g Oral TID 1,000 mg at 05/14/19902 esomeprazole (NEXIUM) 40 mg in NaCl 0.9% (NS) IV piggyback 40 mg IV Piggyback Q12H 40 mg at 05/14/19902 Polyethylene Glycol 3350 (MIRALAX) powder 17 g 17 g Oral BID 17 g at 902 glucagon (GLUCAGEN DIAGNOSTIC KIT) injection 1 mg 1 mg Intramuscular PRN 1 mg at 04/20/19 1154 calcitriol (ROCALTROL) capsule 0.5 mcg 0.5 mcg Oral DAILY 0.5 mcg at 09 foLIC acid (FOLATE) tablet 1 mg 1 mg Oral DAILY AT 1700 1 mg at 05/11/19 1734 magnesium oxide (MAG-OX 400) tablet 400 mg 400 mg Oral BID 400 mg at 903 traMADOL (ULTRAM) tablet 50 mg 50 mg Oral BIDPRN 50 mg at 05/02/19 0929 docusate (COLACE) capsule 100 mg 100 mg Oral BID 100 mg at 05/14/19903 Associated attestation - Lizandro Loo MD - 05/14/2019 5:38 PM CDTI personally examined the patient on 05/14/[address] Poppy Banks's resident noteas written with the following additions: Pending family discussion. I actively participated in the decision-making process. Please see the resident's note for additional details. Lizandro Loo MD Internal Medicine Irene Cam, TECHNOLOGIST DEVELOPMENT - 05/13/2019 3:14 PM CDTPTA NOTE: Attempted to see pt in AM. Pt found semi-reclined in bed upon arrival. Pt declining therapy stating "not right now". Educated pt with the importance and benefits of participating with PT however pt still declined. RN notified. Will check back later for PT session time permitting. Irene Cam PTA Pager # [phone] Supervising PT Justa Matute Poppy Monte MD - 05/12/2019 5:15 PM CDT PGY- 1 Medicine Progress Note Date of Service: 05/12/2019 17:15 Chief Complaint: melena 24-HOUR EVENTS: - no acute events - HGB is stable, no melena SUBJECTIVE: Patient is at her baseline mental status, difficult to obtain ROS; says she feels alright; nurse mentioned no interest in eating; also, no BM/melena PHYSICAL EXAM: Vitals: 05/12/19 0753 05/12/19 1100 05/12/19 1600 05/12/19 1619 BP: (!) 178/80 (!) 147/90 (!) 168/83 (!) 147/67 BP Location: Right arm Patient Position: Supine Supine Supine Pulse: 100 121 132 132 Resp: 20 20 20 Temp: 36.7 C (98.1 F) 36.9 C (98.4 F) 36.8 C (98.2 F) 36.3 C ( 97.3 F) TempSrc: Tympanic Oral Oral Axillary SpO2: 100% 97% 100% Weight: Height: Intake/Output Summary (Last 24 hours) at 05/12/2019 1715 Last data filed at 05/12/2019 0409 Gross per 24 hour Intake 200 ml Output Net 200 ml General: alert and oriented x 1; no apparent distress HEENT: pupils equal, round, reactive to light; extraocular movements intact; oropharynx clear; moistmucous membranes Neck: supple, no lymphadenopathy, no bruits, no JVD Lungs: clear to auscultation bilaterally Cardio: S1, S2 normal; no murmurs, rubs or gallops Extremities: bilateral putting edema LABS/IMAGING - reviewed, pertinent results as below: ASSESSMENT/PLAN Will M Sallins is a 78 year old female admitted to the hospital with: Grade D esophagitis Duodenal erosions UGIB Symptomatic anemia HFpEF HTN ESRD Chronic steroid use 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 -restarted on Metoprolol 25 mg BID -monitoring hemodynamic stability and H&H -c/w CBC, BMP -f/u nephrology recs ( reassess need for dialysis tomorrow) -f/u GI recs -hold anti-hypertension meds for now PAIN: Controlled Prophylaxis: DVT- Contraindicated: Heparin Induced Thrombocytopenia and Thrombus (JEZ) Stress Ulcer: pantoprazole Code Status: addressed: full code Disposition Anticipated Discharge Date : Barriers to Discharge: Poppy Banks MD PGY-1, Neurology [place] team Pager [phone] END OF DAILY PROGRESS NOTE HOSPITAL COURSE Will Ayesha is a 78 y.o female with PMH of ESRD (newly declared),CHFpEF,HTN , RA, gout and dementia who presents as a transfer from [facility] due to concerns of HITand acute hypoxic respiratory failureinitially. Patient had hematology evaluate her due to concerns of HIT, however HIT antibody was negative on ARUP. She was being managed on the floor when she had sudden drop of Hgb with reports of melena overnight. During dialysis, she suffered a witness "seizure" and Rapid was called. Neurology was consulted and followed patient. EEG was negative for seizures. Nephro thinks it is a dialyzer reaction. With stability, she returned to the floor. She had an episode of melena with repeat Hgb dropping to5.6, putting her back to MICU. GI was consulted and ppi gtt wasstarted. 3 units of pRBC transfused. Grade D esophagitis seen on EGD. With stability, nephro was consulted for HD scheduling. She was transferred back to floor.We monitor patients condition and wait for possible SNF placement for this patient after dialysis on 05/05/19 .Duringone dialysis sessionpatient had an episode of hypotension. Patient had a large bloody BM(melena)today in the morning. HGB dropped to 5.9 , we transfused2 units of blood and 1 unit of cryo. She was sent to ICU and GI repeated EGD showing improved esophagus and 2 duodenal ulcer with 1 given epi injection. Patient Hgb remained stable after procedure. She has been hemodynamically stable with >24 hours of observation in the ICU. From ICU standpoint, stable for transfer to the floor. Nephrology will assess for need for dialysis. Previous hypotensive episode during dialysis could be attributable to dialyzer reaction and/or UGIB. Patient had another episode of melena, HGB dropped to 6.9 , 1 unit of RBCs transfused. Patient is hemodynamically stable, no GI bleeding. Consider dialysis tomorrow. CURRENT MEDICATIONS - reviewed. Current Facility-Administered Medications Medication Dose Route Frequency Last Rate Last Dose metoprolol tartrate (LOPRESSOR) tablet 25 mg 25 mg Oral BID FENTanyl PF (SUBLIMAZE (PF)) injection Slow IV Push PRN 25 mcg at 1910 hydrocortisone (CORTEF) tablet 10 mg 10 mg Oral QAM 10 mg at 05/10/1917 hydrocortisone (CORTEF) tablet 5 mg 5 mg Oral QPM 5 mg at 05/11/191733 midazolam (VERSED) injection IV Push PRN 0.5 mg at 05/09/191910 metoclopramide HCl (REGLAN) 5 mg in NaCl 0.9% (NS) piggyback 5 mg IV Piggyback TIDPRN MEALS sucralfate (CARAFATE) 100 mg/mL suspension 1,000 mg 1 g Oral TID 1,000 mg at 05/11/19 0857 esomeprazole (NEXIUM) 40 mg in NaCl 0.9% (NS) IV piggyback 40 mg IV Piggyback Q12H 40 mg at 05/11/192048 Polyethylene Glycol 3350 (MIRALAX) powder 17 g 17 g Oral BID 17 g at 2050 glucagon (GLUCAGEN DIAGNOSTIC KIT) injection 1 mg 1 mg Intramuscular PRN 1 mg at 04/20/19 1154 calcitriol (ROCALTROL) capsule 0.5 mcg 0.5 mcg Oral DAILY 0.5 mcg at 0858 foLIC acid (FOLATE) tablet 1 mg 1 mg Oral DAILY AT 1700 1 mg at 05/11/191733 magnesium oxide (MAG-OX 400) tablet 400 mg 400 mg Oral BID 400 mg at 2050 traMADOL (ULTRAM) tablet 50 mg 50 mg Oral BIDPRN 50 mg at 05/02/19 0929 docusate (COLACE) capsule 100 mg 100 mg Oral BID 100 mg at 05/11/192050 Associated attestation - Olivier Hansen - 05/15/2019 4:05 PM CDTI personally examined the patient on 05/12/2019 and agree with the note by Dr. BANKS, on 05/12/2019as written. I actively participated in the decision- making process. Please see the resident's notefor additional details. Poppy Banks MD - 05/12/2019 4:33 PM CDT PGY- 1 Medicine Progress Note Date of Service: 05/13/2019 10:33 Chief Complaint: melena 24-HOUR EVENTS: - no acute events - HGB is 8.2 (at 9.2 yesterday) SUBJECTIVE: Patient appears to be more alert and comfortable today than usually; she feels "like eating"; no bloody BMs according to the nurse PHYSICAL EXAM: Vitals: 05/12/19 2328 05/12/19 2350 05/13/19 0247 05/13/19 0745 BP: (!) 180/89 (!) 164/110 (!) 144/87 (!) 145/74 BP Location: Patient Position: Supine Supine Pulse: 120 99 103 104 Resp: 20 20 20 Temp: 37.2 C (98.9 F) 37.2 C (98.9 F) 37.2 C (98.9 F) TempSrc: Oral Oral Oral SpO2: 97% 99% 100% (!) 7% Weight: Height: Intake/Output Summary (Last 24 hours) at 05/13/2019 1033 Last data filed at 05/12/20192030 Gross per 24 hour Intake 220 ml Output Net 220 ml General: alert and oriented x 1; no apparent distress HEENT: pupils equal, round, reactive to light; extraocular movements intact; oropharynx clear; moistmucous membranes Neck: supple, no lymphadenopathy, no bruits, no JVD Lungs: clear to auscultation bilaterally Cardio: S1, S2 normal; no murmurs, rubs or gallops Extremities: bilateral putting edema LABS/IMAGING - reviewed, pertinent results as below: ASSESSMENT/PLAN Will Zack Hodge is a 78 year old female admitted to the hospital with: Grade D esophagitis Duodenal erosions UGIB Symptomatic anemia HFpEF HTN ESRD Chronic steroid use 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 -palliative consulted since patient is not longer a candidate for dialysis; -restarted on Metoprolol 25 mg BID -monitoring hemodynamic stability and H&H -c/w CBC, BMP -f/u nephrology recs ( reassess need for dialysis tomorrow) -f/u GI recs -hold anti-hypertension meds for now PAIN: Controlled Prophylaxis: DVT- Contraindicated: Heparin Induced Thrombocytopenia and Thrombus (JEZ) Stress Ulcer: pantoprazole Code Status: addressed: full code Disposition Anticipated Discharge Date : Barriers to Discharge: Poppy Banks MD PGY-1, Neurology [place] team Pager [phone] END OF DAILY PROGRESS NOTE HOSPITAL COURSE Brandon Hodge is a 78 y.o female with PMH of ESRD (newly declared),CHFpEF,HTN , RA, gout and dementia who presents as a transfer from [facility] due to concerns of HITand acute hypoxic respiratory failureinitially. Patient had hematology evaluate her due to concerns of HIT, however HIT antibody was negative on ARUP. She was being managed on the floor when she had sudden drop of Hgb with reports of melena overnight. During dialysis, she suffered a witness "seizure" and Rapid was called. Neurology was consulted and followed patient. EEG was negative for seizures. Nephro thinks it is a dialyzer reaction. With stability, she returned to the floor. She had an episode of melena with repeat Hgb dropping to5.6, putting her back to MICU. GI was consulted and ppi gtt wasstarted. 3 units of pRBC transfused. Grade D esophagitis seen on EGD. With stability, nephro was consulted for HD scheduling. She was transferred back to floor.We monitor patients condition and wait for possible SNF placement for this patient after dialysis on 05/05/19 .Duringone dialysis sessionpatient had an episode of hypotension. Patient had a large bloody BM(melena)today in the morning. HGB dropped to 5.9 , we transfused2 units of blood and 1 unit of cryo. She was sent to ICU and GI repeated EGD showing improved esophagus and 2 duodenal ulcer with 1 given epi injection. Patient Hgb remained stable after procedure. She has been hemodynamically stable with >24 hours of observation in the ICU. From ICU standpoint, stable for transfer to the floor. Nephrology will assess for need for dialysis. Previous hypotensive episode during dialysis could be attributable to dialyzer reaction and/or UGIB. Patient had another episode of melena, HGB dropped to 6.9 , 1 unit of RBCs transfused. Patient is hemodynamically stable, no GI bleeding. Consider dialysis tomorrow. CURRENT MEDICATIONS - reviewed. Current Facility-Administered Medications Medication Dose Route Frequency Last Rate Last Dose metoprolol tartrate (LOPRESSOR) tablet 25 mg 25 mg Oral BID 25 mg at 816 FENTanyl PF (SUBLIMAZE (PF)) injection Slow IV Push PRN 25 mcg at 1910 hydrocortisone (CORTEF) tablet 10 mg 10 mg Oral QAM 10 mg at 05/10/19916 hydrocortisone (CORTEF) tablet 5 mg 5 mg Oral QPM 5 mg at 05/11/191733 midazolam (VERSED) injection IV Push PRN 0.5 mg at 05/09/191910 metoclopramide HCl (REGLAN) 5 mg in NaCl 0.9% (NS) piggyback 5 mg IV Piggyback TIDPRN MEALS sucralfate (CARAFATE) 100 mg/mL suspension 1,000 mg 1 g Oral TID 1,000 mg at 05/13/19816 esomeprazole (NEXIUM) 40 mg in NaCl 0.9% (NS) IV piggyback 40 mg IV Piggyback Q12H 40 mg at 05/13/19 0818 Polyethylene Glycol 3350 (MIRALAX) powder 17 g 17 g Oral BID 17 g at 08 glucagon (GLUCAGEN DIAGNOSTIC KIT) injection 1 mg 1 mg Intramuscular PRN 1 mg at 04/20/19 1154 calcitriol (ROCALTROL) capsule 0.5 mcg 0.5 mcg Oral DAILY 0.5 mcg at 08 foLIC acid (FOLATE) tablet 1 mg 1 mg Oral DAILY AT 1700 1 mg at 05/11/19 1734 magnesium oxide (MAG-OX 400) tablet 400 mg 400 mg Oral BID 400 mg at 0817 traMADOL (ULTRAM) tablet 50 mg 50 mg Oral BIDPRN 50 mg at 05/02/19 0929 docusate (COLACE) capsule 100 mg 100 mg Oral BID 100 mg at 05/13/19 0817 Associated attestation - Olivier Hansen - 05/15/2019 4:04 PM CDTI personally examined the patient on 05/13/2019 and agree with the note by Dr. BANKS, on 05/13/2019as written. I actively participated in the decision- making process. Please see the resident's notefor additional details. Discussed at length wit hnephrology the withdrawal of dialysis. Alexa Knowles, ACNP - 05/12/2019 3:09 PM CDTPatient is not stable enough to have conventional HD. She drops bp and has seizures within 20 minutes of HD. She is not a candidate for home dialysis modalities. Recommendation for palliative care consult. Alexa Knowles, MSN, RN, ACNP-C Department of Nephrology Nurse Practitioner Office [phone] Associated attestation - Mikel Roa MD - 05/18/2019 9:10 AM CDTI was asked by TELEVISION ACTOR to evaluate the patient. I reviewed the Charts and examine the patient. I personally participated in the decision-making process as relates to this patient's medical condition and agree with TELEVISION ACTOR's Note . Please refer to TELEVISION ACTOR's progress note for details of the medical care provided with following additions. Due to patient complained of morbid Conditions , patient is not tolerating dialysis. We asked the team to consult palliative Mikel Roa MD Inventory Specialist Manager Transplant Nephrology Irene Cam, TECHNOLOGIST DEVELOPMENT - 05/12/2019 11:43 AM CDTPTA NOTE: Attempted to see pt in AM. Pt found semi-reclined in bed upon arrival. Pt declining therapy stating she doesn't want to participate. Asked if patient would be willing to do bed level exercises however patient continues to decline. RN notified. Will check back later for PT session time permitting. Irene Cam PTA Supervising PT Justa Matute everly Pimentel OT - 05/12/2019 11:16 AM CDT05/12/2019 1116 OCCUPATIONAL THERAPY NOTE: Attempt to f/u with patient, however, patient refusing therapy at this time. Patient states, "I justdon't feel like it." Patient educated about the benefits of movement, however, continues to adamantly refuse. Call feng in reach. Will f/ u next date, as time permits. STANLEY Suarez, OTD, C/NDT Pager [phone] Genesis Lao RN - 05/12/2019 8:59 AM CDTCare Coordinator Update Updated clinicals sent to [facility] ([address] [place] [address], P: [phone]). CM was notified that insurance is requiring peer to peer, paged team, awaiting call back. [facility] referral made as patient high risk for readmission. Update 05/12/19 2450 Peer to peer has been completed, insurance has denied LTAC request. CM discussed appeal with team, they are placing palliative consult, CM will f/u tomorrow. Genesis Matt RN,BSN Manager Medicaid Department of Care Management [phone] signed by Genesis Matt RN at 05/12/2019 3:31 PM Poppy Monte MD - 05/11/2019 11:43 AM CDT PGY- 1 Medicine Progress Note Date of Service: 05/11/2019 13:50 Chief Complaint: melena 24-HOUR EVENTS: - no acute events overnight - HGB is stable, no melena SUBJECTIVE: Patient is doing the same as yesterday; no change in mentation status; No GI bleeding overnight PHYSICAL EXAM: Vitals: 05/10/19 2003 05/10/19 2329 05/11/19 0345 05/11/19 0807 BP: (!) 145/84 138/68 129/68 136/56 Patient Position: Supine Supine Supine Pulse: 110 111 103 105 Resp: 18 18 18 18 Temp: 36.9 C (98.5 F) 36.7 C (98 F) 36.7 C (98 F) 36.8 C (98.3 F ) TempSrc: Oral Oral Oral Axillary SpO2: 99% 99% 99% 100% Weight: Height: Intake/Output Summary (Last 24 hours) at 05/11/2019 1350 Last data filed at 05/10/2019 1730 Gross per 24 hour Intake 60 ml Output Net 60 ml General: alert and oriented x 1; no apparent distress HEENT: pupils equal, round, reactive to light; extraocular movements intact; oropharynx clear; moistmucous membranes Neck: supple, no lymphadenopathy, no bruits, no JVD Lungs: clear to auscultation bilaterally Cardio: S1, S2 normal; no murmurs, rubs or gallops Extremities: bilateral putting edema LABS/IMAGING - reviewed, pertinent results as below: ASSESSMENT/PLAN Brandon Hodge is a 78 year old female admitted to the hospital with: Grade D esophagitis Duodenal erosions UGIB Symptomatic anemia HFpEF HTN ESRD Chronic steroid use 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 -monitoring hemodynamic stability and H&H -c/w CBC, BMP -f/u nephrology recs ( reassess need for dialysis tomorrow) -f/u GI recs -hold anti-hypertension meds for now PAIN: Controlled Prophylaxis: DVT- Contraindicated: Heparin Induced Thrombocytopenia and Thrombus (JEZ) Stress Ulcer: pantoprazole Code Status: addressed: full code Disposition Anticipated Discharge Date : Barriers to Discharge: Poppy Banks MD PGY-1, Neurology [place] team Pager [phone] END OF DAILY PROGRESS NOTE HOSPITAL COURSE Brandon Hodge is a 78 y.o female with PMH of ESRD (newly declared),CHFpEF,HTN , RA, gout and dementia who presents as a transfer from [facility] due to concerns of HITand acute hypoxic respiratory failureinitially. Patient had hematology evaluate her due to concerns of HIT, however HIT antibody was negative on ARUP. She was being managed on the floor when she had sudden drop of Hgb with reports of melena overnight. During dialysis, she suffered a witness "seizure" and Rapid was called. Neurology was consulted and followed patient. EEG was negative for seizures. Nephro thinks it is a dialyzer reaction. With stability, she returned to the floor. She had an episode of melena with repeat Hgb dropping to5.6, putting her back to MICU. GI was consulted and ppi gtt wasstarted. 3 units of pRBC transfused. Grade D esophagitis seen on EGD. With stability, nephro was consulted for HD scheduling. She was transferred back to floor.We monitor patients condition and wait for possible SNF placement for this patient after dialysis on 05/05/19 .Duringone dialysis sessionpatient had an episode of hypotension. Patient had a large bloody BM(melena)today in the morning. HGB dropped to 5.9 , we transfused2 units of blood and 1 unit of cryo. She was sent to ICU and GI repeated EGD showing improved esophagus and 2 duodenal ulcer with 1 given epi injection. Patient Hgb remained stable after procedure. She has been hemodynamically stable with >24 hours of observation in the ICU. From ICU standpoint, stable for transfer to the floor. Nephrology will assess for need for dialysis. Previous hypotensive episode during dialysis could be attributable to dialyzer reaction and/or UGIB. Patient had another episode of melena, HGB dropped to 6.9 , 1 unit of RBCs transfused. Patient is hemodynamically stable, no GI bleeding. Consider dialysis tomorrow. CURRENT MEDICATIONS - reviewed. Current Facility-Administered Medications Medication Dose Route Frequency Last Rate Last Dose FENTanyl PF (SUBLIMAZE (PF)) injection Slow IV Push PRN 25 mcg at 1910 hydrocortisone (CORTEF) tablet 10 mg 10 mg Oral QAM 10 mg at 05/10/19916 hydrocortisone (CORTEF) tablet 5 mg 5 mg Oral QPM 5 mg at 05/10/191730 midazolam (VERSED) injection IV Push PRN 0.5 mg at 05/09/191910 metoclopramide HCl (REGLAN) 5 mg in NaCl 0.9% (NS) piggyback 5 mg IV Piggyback TIDPRN MEALS sucralfate (CARAFATE) 100 mg/mL suspension 1,000 mg 1 g Oral TID 1,000 mg at 05/11/19 0857 esomeprazole (NEXIUM) 40 mg in NaCl 0.9% (NS) IV piggyback 40 mg IV Piggyback Q12H 40 mg at 05/11/19 0858 Polyethylene Glycol 3350 (MIRALAX) powder 17 g 17 g Oral BID 17 g at 0858 glucagon (GLUCAGEN DIAGNOSTIC KIT) injection 1 mg 1 mg Intramuscular PRN 1 mg at 04/20/19 1154 calcitriol (ROCALTROL) capsule 0.5 mcg 0.5 mcg Oral DAILY 0.5 mcg at 0858 foLIC acid (FOLATE) tablet 1 mg 1 mg Oral DAILY AT 1700 1 mg at 05/10/19 1731 magnesium oxide (MAG-OX 400) tablet 400 mg 400 mg Oral BID 400 mg at 0857 traMADOL (ULTRAM) tablet 50 mg 50 mg Oral BIDPRN 50 mg at 05/02/19 0929 docusate (COLACE) capsule 100 mg 100 mg Oral BID 100 mg at 05/11/19 0857 Associated attestation - Olivier Hansen - 05/11/2019 6:17 PM CDTI personally examined the patient on 05/11/2019 and agree with the note by Dr. al, on 05/11/2019 as written. I actively participated in the decision- making process. Please see the resident's note for additional details. Genesis Matt RN - 05/11/2019 9:30 AM CDTCare Coordinator Update Updated clinicals sent to [facility] ([address] [place] [address], P: [phone]), pending insurance authorization. Genesis Matt RN,BSN Manager Medicaid Department of Care Management [phone] signed by Genesis Matt RN at 05/11/2019 9:32 AM Pablo Junior - 05/10/2019 3:48 PM CDT MEDICAL NUTRITION THERAPY - Follow Up I have reviewed the comprehensive progress notes dated today as well as additional physician and allied health provider notes and EPIC information for an understanding of the patient's current medical condition and plans for further treatment and care. Brandon Hodge is a 78 y.o female with PMH of ESRD (newly declared),CHFpEF,HTN , RA, gout and dementia, Grade D esophagitis seen on bedside EGD who presents as a transfer from [facility] due to concerns of HITand acute hypotix respoirtory failure initially. 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 She was being transferred down to MICU after developing multiple episodes of hypotension and Hgb drop to 5s as well as possible stroke vs seizure (neuro workup was negative) She had bedside EGD showing grade esophagitis and was placed on PPI. She responded well with the gtt as well as stabilization of Hgb after being transfused. She was transferred back to the floor where she continued to have dialysis but today had 2 more episodes of melena with Hgb 5.9. Of note, she did also receive heparin SQ the night prior She received 2 units of blood,notified GI who plans on doing repeat EGD, started on PPI gtt again. She also had a drop in fibrinogen and was given 1 unit of cryo. When patient was transferred down to the floor, she denied any fever, chills, CP, SOB, abd pain, N/V. Though she also she did not appear to know where she from. Per Dr. Fairchild's 05/06 note. Diet Order: NPO Documented Food Allergies/Intolerance/Cultural Preferences: None GI and Nutrition Related Findings: Spoke with RN this afternoon. RN reports patient received food last night but will not eat and has no appetite. Patient currently NPO. General: Edema: 2+ bilateral foot/leg, 1+ generalized Wounds: Surgical wound right chest, surgical sound oral NA, Stage II pressure ulcer sacrum mid, healing Stage II pressure ulcer posterior knee Pertinent Medications: Noted. Includes: calcitriol, docusate, folic acid, magnesium oxide 400 mg BID, multivitamin, Miralax BID, Labs and Medical Test Results: Reviewed. Ref. Range 05/06/2019 19:54 05/07/2019 02:08 05/08/2019 03:52 05/09/2019 05:30 05/10 04:01 NA Latest Ref Range: 135 - 145 mmol/L 132 (L) 132 (L) 133 (L) 134 (L) 132 (L) K Latest Ref Range: 3.5 - 5.0 mmol/L 4.3 4.3 4.0 4.0 4.0 CL Latest Ref Range: 98 - 108 mmol/L 102 102 103 104 103 CO2 TOTAL Latest Ref Range: 23 - 31 mmol/L 27 29 27 26 26 AGAP Latest Ref Range: 2 - 16 3 1 (L) 3 4 3 BUN Latest Ref Range: 7 - 23 mg/dL 36 (H) 41 (H) 46 (H) 49 (H) 47 (H) GLUCOSE Latest Ref Range: 70 - 110 mg/dL 85 85 76 75 66 (L) CREATININE Latest Ref Range: 0.50 - 1.04 mg/dL 1.94 (H) 2.09 (H) 2.39 (H) 2.59 ( H) 2.65 (H) eGFR CALCULATION (non ) Latest Units: mL/min/1.73m2 25.0 22.9 19.6 17.9 17.4 eGFR CALCULATION () Latest Units: mL/min/1.73m2 30.3 27.8 23.8 21.7 21.1 TOTAL BILI Latest Ref Range: 0.1 - 1.1 mg/dL 2.0 (H) CALCIUM Latest Ref Range: 8.6 - 10.6 mg/dL 7.8 (L) 7.8 (L) 7.6 (L) 7.7 (L) 7.5 ( L) T PROTEIN Latest Ref Range: 6.3 - 8.2 g/dL 4.0 (L) ALBUMIN Latest Ref Range: 3.5 - 5.0 g/dL 1.8 (L) Anthropometrics: Height: 1.6 m Weight: 235 lbs (106.6 kg) Body mass index is 41.63 kg/m. IBW: 140 lbs (63.7 kg) at BMI 24.9 kg/m^2 %IBW: 167 UBW: unknown Admit Weight: 280 lbs (127 kg) Admission weight history: 05/08: 222 lbs (100.7 kg) 05/05: 220 lbs (99.9 kg) 05/03: 207 lbs (94 kg) 04/18: 217 lbs (98.5 kg) 04/13: 211 lbs (95.7 kg) NUTRITION DIAGNOSIS: 1) Inadequate energy intake related to decreased ability to consume sufficient energy as evidenced by dementia, lack of appetite, and minimal PO intake for ~1 week. NUTRITION INTERVENTIONS: 1) Recommend Regular diet, mechanical soft texture, to promote PO intake as tolerated. 2) Recommend vanilla Nepro BID -ordered ONS X4 from materials management, discussed with nurse who states she will offer supplements once in diet order. 3) Monitor need for feeding assistance. 4) Please discontinue regular Multivitamin - fat soluble vitamin supplementation not recommended in ESRD patients (Vit A can accumulate). Suggest NephroVite once daily. Goal(s): 1) The patient will be able to consume 75% of all meals without any intolerances during this admission. MONITORING/EVALUATION: - RD to continue following with Nephrology team to review pt's progress, report nutrition related information, and to revise the recommended nutrition intervention(s) if necessary; please call with questions or concerns Anticipated Discharge Needs: None identified at this time. Pablo Duenas Nephrology Dietitian Pager: [phone] Associated attestation - Estefanía Black - 05/10/2019 5:05 PM CDTI have reviewed the nutrition care plan for Brandon Hodge, and I agree with Pablo Duenas's note aswritten. I actively participated in the plan of care. Estefanía Black, MS, RD, BLUEPRINT MACHINE OPERATOR, LD Nephrology Dietitian Pager: [phone] Banks MD - 05/10/2019 3:29 PM CDT PGY- 1 Medicine Progress Note Date of Service: 05/10/2019 15:30 Chief Complaint: melena 24-HOUR EVENTS: - no acute events overnight - HGB is stable, no bleeds/ no melena SUBJECTIVE: Patient is doing the same as yesterday; no change in mentation status; doesn't appear to be in acutedistress PHYSICAL EXAM: Vitals: 05/09/19 2020 05/09/19 2337 05/10/19 0407 05/10/19 1136 BP: 138/62 111/60 138/60 133/53 BP Location: Patient Position: Supine Supine Supine Pulse: 94 97 93 101 Resp: 15 16 16 16 Temp: 36.8 C (98.2 F) 36.7 C (98 F) 36.7 C (98.1 F) 36.7 C (98 F ) TempSrc: Axillary Oral Axillary SpO2: 100% 93% 99% 98% Weight: Height: Intake/Output Summary (Last 24 hours) at 05/10/2019 1530 Last data filed at 05/10/2019 0923 Gross per 24 hour Intake 1797 ml Output Net 1797 ml General: alert and oriented x 1; no apparent distress HEENT: pupils equal, round, reactive to light; extraocular movements intact; oropharynx clear; moistmucous membranes Neck: supple, no lymphadenopathy, no bruits, no JVD Lungs: clear to auscultation bilaterally Cardio: S1, S2 normal; no murmurs, rubs or gallops Extremities: bilateral putting edema LABS/IMAGING - reviewed, pertinent results as below: ASSESSMENT/PLAN Brandon Hodge is a 78 year old female admitted to the hospital with: Grade D esophagitis Duodenal erosions UGIB Symptomatic anemia HFpEF HTN ESRD Chronic steroid use 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 -monitoring hemodynamic stability and H&H -c/w CBC, BMP -f/u nephrology recs ( reassess need for dialysis tomorrow) -f/u GI recs -hold anti-hypertension meds for now PAIN: Controlled Prophylaxis: DVT- Contraindicated: Heparin Induced Thrombocytopenia and Thrombus (JEZ) Stress Ulcer: pantoprazole Code Status: addressed: full code Disposition Anticipated Discharge Date : Barriers to Discharge: Poppy Banks MD PGY-1, Neurology [place] team Pager [phone] END OF DAILY PROGRESS NOTE HOSPITAL COURSE Brandon Hodge is a 78 y.o female with PMH of ESRD (newly declared),CHFpEF,HTN , RA, gout and dementia who [facility] [facility] due to concerns of HITand acute hypoxic respiratory failureinitially. Patient had hematology evaluate her due to concerns of HIT, however HIT antibody was negative on ARUP. She was being managed on the floor when she had sudden drop of Hgb with reports of melena overnight. During dialysis, she suffered a witness "seizure" and Rapid was called. Neurology was consulted and followed patient. EEG was negative for seizures. Nephro thinks it is a dialyzer reaction. With stability, she returned to the floor. She had an episode of melena with repeat Hgb dropping to5.6, putting her back to MICU. GI was consulted and ppi gtt wasstarted. 3 units of pRBC transfused. Grade D esophagitis seen on EGD. With stability, nephro was consulted for HD scheduling. She was transferred back to floor.We monitor patients condition and wait for possible SNF placement for this patient after dialysis on 05/05/19 .Duringone dialysis sessionpatient had an episode of hypotension. Patient had a large bloody BM(melena)today in the morning. HGB dropped to 5.9 , we transfused2 units of blood and 1 unit of cryo. She was sent to ICU and GI repeated EGD showing improved esophagus and 2 duodenal ulcer with 1 given epi injection. Patient Hgb remained stable after procedure. She has been hemodynamically stable with >24 hours of observation in the ICU. From ICU standpoint, stable for transfer to the floor. Nephrology will assess for need for dialysis. Previous hypotensive episode during dialysis could be attributable to dialyzer reaction and/or UGIB. Patient had another episode of melena, HGB dropped to 6.9 , 1 unit of RBCs transfused . Waiting on echo results. CURRENT MEDICATIONS - reviewed. Current Facility-Administered Medications Medication Dose Route Frequency Last Rate Last Dose FENTanyl PF (SUBLIMAZE (PF)) injection Slow IV Push PRN 25 mcg at 1910 hydrocortisone (CORTEF) tablet 10 mg 10 mg Oral QAM 10 mg at 05/10/19 0917 hydrocortisone (CORTEF) tablet 5 mg 5 mg Oral QPM 5 mg at 05/09/19 1344 midazolam (VERSED) injection IV Push PRN 0.5 mg at 05/09/191910 sodium chloride (NS) injection 10 mL 10 mL Intravenous PRN metoclopramide HCl (REGLAN) 5 mg in NaCl 0.9% (NS) piggyback 5 mg IV Piggyback TIDPRN MEALS sucralfate (CARAFATE) 100 mg/mL suspension 1,000 mg 1 g Oral TID 1,000 mg at 05/10/19 0916 esomeprazole (NEXIUM) 40 mg in NaCl 0.9% (NS) IV piggyback 40 mg IV Piggyback Q12H 40 mg at 05/10/19 0916 Polyethylene Glycol 3350 (MIRALAX) powder 17 g 17 g Oral BID 17 g at 0916 glucagon (GLUCAGEN DIAGNOSTIC KIT) injection 1 mg 1 mg Intramuscular PRN 1 mg at 04/20/19 1154 calcitriol (ROCALTROL) capsule 0.5 mcg 0.5 mcg Oral DAILY 0.5 mcg at 0916 foLIC acid (FOLATE) tablet 1 mg 1 mg Oral DAILY AT 1700 1 mg at 05/04/19 1759 magnesium oxide (MAG-OX 400) tablet 400 mg 400 mg Oral BID 400 mg at 0917 multivitamin tablet 1 tablet 1 tablet Oral DAILY 1 tablet at 05/10/19 0917 traMADOL (ULTRAM) tablet 50 mg 50 mg Oral BIDPRN 50 mg at 05/02/19 0929 docusate (COLACE) capsule 100 mg 100 mg Oral BID 100 mg at 05/10/19 0916 Associated attestation - Olivier Hansen - 05/11/2019 6:16 PM CDTI personally examined the patient on 05/11/2019 and agree with the note by Dr. banks, on 05/11/2019as written. I actively participated in the decision- making process. Please see the resident's notefor additional details. Genessi Matt RN - 05/10/2019 12:35 PM CDTCare Coordinator Update Updated clinicals sent to [facility] ([address] [place] [id number], P: [phone]), patient pending insurance authorization. Genesis Matt RN,BSN Manager Medicaid Department of Care Management [phone] signed by Genesis Matt RN at 05/10/2019 12:36 PM CDTBAlexa marks, ACNP - 05/10/2019 10:18 AM CDTDue to patient bleeding episodes, will hold off on HD today. Reassess tomorrow. Denies uremic symptoms at this time. Lungs clear but she does have edema on bilateral lower extremities. If unable to do HD, she may have to be placed on CRRT for volume removal and clearance. Echo 05-09-2019 diastolic dysfunction EF 60-65% RAP 0-5 TR unable to get RVSP No significant changes since her last echo 04-14-2019 Last treatment with HD BP was checked [id number], 160NR dialyzer was used, which was flushed with oneLiter of fluid prior to starting HD. Profile # 2 used with cool dialysate 35.5 Alexa Knowles, MSN, RN, ACNP-C Department of Nephrology Nurse Practitioner Office [phone] Jovi Wen MD - 05/10/2019 7:42 AM CDT VASCULAR AND INTERVENTIONAL RADIOLOGY PROGRESS NOTE Patient resting in bed comfortably with no new complaints. No acute events overnight. Denies any current pain. Vitals: 05/09/19200405/09/19201905/09/19 2337 05/10/19 0407 BP: 133/68 138/62 111/60 138/60 BP Location: Left arm Patient Position: Supine Supine Supine Supine Pulse: 94 94 97 93 Resp: 16 15 16 16 Temp: 36.8 C (98.2 F) 36.7 C (98 F) 36.7 C (98.1 F) TempSrc: Axillary Oral Axillary SpO2: 99% 100% 93% 99% Weight: Height: Groin: soft, nontender, no evidence of hematoma Labs - CBC WBC (10*3/L) Date Value 05/10/2019 10.13 RBC (10*6/L) Date Value 05/10/2019 2.99 (L) PLT (10*3/L) Date Value 05/10/2019 101 (L) HGB (g/dL) Date Value 05/10/2019 9.1 (L) HCT (%) Date Value 05/10/2019 28.0 (L) BMP NA (mmol/L) Date Value 05/10/2019 132 (L) K (mmol/L) Date Value 05/10/2019 4.0 CALCIUM (mg/dL) Date Value 05/10/2019 7.5 (L) CL (mmol/L) Date Value 05/10/2019 103 BUN (mg/dL) Date Value 05/10/2019 47 (H) CREATININE (mg/dL) Date Value 05/10/2019 2.65 (H) GLUCOSE (mg/dL) Date Value 05/10/2019 66 (L) CO2 TOTAL (mmol/L) Date Value 05/10/2019 26 A/P - s/p Angiogram and embolization of the GDA on 05/09/19. - Hemoglobin stable at 9.1. Continue to trend. - Groin soft, nontender. No postoperative complications. - Continue present management per primary. Jovi Marquez DO VIR Fellow Associated attestation - Chaparro Hernandez DO - 05/11/2019 10:43 AM CDTI was present, supervised the procedure and agree with the resident/fellow note. Patient's hemoglobin has remained stable since procedure (POD 2). IR signing off. Please re-consult if any further concerns. Thank you. Chaparro Hernandez DO Faculty [facility]-Vascular and Interventional Radiology [phone] Poppy Banks MD - 05/09/2019 4:23 PM CDT PGY- 1 Medicine Progress Note Date of Service: 05/09/2019 16:23 Chief Complaint: melena 24-HOUR EVENTS: - patient has an episode of melena today - HGB at 6.9 - 1 unit of RBCs transfused - echo is done SUBJECTIVE: Patient is quite disoriented but states she is doing alright; PHYSICAL EXAM: Vitals: 05/09/19 1320 05/09/19 1432 05/09/19 1500 05/09/19 1621 BP: 117/56 134/74 112/74 115/70 Patient Position: Pulse: 80 95 76 100 Resp: Temp: 35.9 C (96.6 F) 36.1 C (97 F) 36.9 C (98.4 F) 36.9 C (98.4 F) TempSrc: Axillary Axillary SpO2: 93% 92% 94% 94% Weight: Height: Intake/Output Summary (Last 24 hours) at 05/09/2019 1623 Last data filed at 05/08/2019 2221 Gross per 24 hour Intake 200 ml Output Net 200 ml General: alert and oriented x 1; no apparent distress HEENT: pupils equal, round, reactive to light; extraocular movements intact; oropharynx clear; moistmucous membranes Neck: supple, no lymphadenopathy, no bruits, no JVD Lungs: clear to auscultation bilaterally Cardio: S1, S2 normal; no murmurs, rubs or gallops Extremities: bilateral putting edema LABS/IMAGING - reviewed, pertinent results as below: ASSESSMENT/PLAN Will Zack Hodge is a 78 year old female admitted to the hospital with: Grade D esophagitis Duodenal erosions UGIB Symptomatic anemia HFpEF HTN ESRD Chronic steroid use 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 -monitoring hemodynamic stability -c/w CBC, BMP -f/u nephrology recs ( reassess need for dialysis tomorrow) -f/u GI recs -hold anti-hypertension meds for now PAIN: Controlled Prophylaxis: DVT- Contraindicated: Heparin Induced Thrombocytopenia and Thrombus (JEZ) Stress Ulcer: pantoprazole Code Status: addressed: full code Disposition Anticipated Discharge Date : Barriers to Discharge: Poppy Banks MD PGY-1, Neurology [place] team Pager [phone] END OF DAILY PROGRESS NOTE HOSPITAL COURSE Brandon Hodge is a 78 y.o female with PMH of ESRD (newly declared),CHFpEF,HTN , RA, gout and dementia who presents as a transfer from [facility] due to concerns of HITand acute hypoxic respiratory failureinitially. Patient had hematology evaluate her due to concerns of HIT, however HIT antibody was negative on ARUP. She was being managed on the floor when she had sudden drop of Hgb with reports of melena overnight. During dialysis, she suffered a witness "seizure" and Rapid was called. Neurology was consulted and followed patient. EEG was negative for seizures. Nephro thinks it is a dialyzer reaction. With stability, she returned to the floor. She had an episode of melena with repeat Hgb dropping to5.6, putting her back to MICU. GI was consulted and ppi gtt wasstarted. 3 units of pRBC transfused. Grade D esophagitis seen on EGD. With stability, nephro was consulted for HD scheduling. She was transferred back to floor.We monitor patients condition and wait for possible SNF placement for this patient after dialysis on 05/05/19 .Duringone dialysis sessionpatient had an episode of hypotension. Patient had a large bloody BM(melena)today in the morning. HGB dropped to 5.9 , we transfused2 units of blood and 1 unit of cryo. She was sent to ICU and GI repeated EGD showing improved esophagus and 2 duodenal ulcer with 1 given epi injection. Patient Hgb remained stable after procedure. She has been hemodynamically stable with >24 hours of observation in the ICU. From ICU standpoint, stable for transfer to the floor. Nephrology will assess for need for dialysis. Previous hypotensive episode during dialysis could be attributable to dialyzer reaction and/or UGIB. Patient had another episode of melena, HGB dropped to 6.9 , 1 unit of RBCs transfused . Waiting on echo results. CURRENT MEDICATIONS - reviewed. Current Facility-Administered Medications Medication Dose Route Frequency Last Rate Last Dose hydrocortisone (CORTEF) tablet 10 mg 10 mg Oral QAM hydrocortisone (CORTEF) tablet 5 mg 5 mg Oral QPM 5 mg at 05/09/19 1344 metoclopramide HCl (REGLAN) 5 mg in NaCl 0.9% (NS) piggyback 5 mg IV Piggyback TIDPRN MEALS sucralfate (CARAFATE) 100 mg/mL suspension 1,000 mg 1 g Oral TID 1,000 mg at 05/08/19 2221 esomeprazole (NEXIUM) 40 mg in NaCl 0.9% (NS) IV piggyback 40 mg IV Piggyback Q12H 40 mg at 05/09/19 1337 Polyethylene Glycol 3350 (MIRALAX) powder 17 g 17 g Oral BID 17 g at 2220 glucagon (GLUCAGEN DIAGNOSTIC KIT) injection 1 mg 1 mg Intramuscular PRN 1 mg at 04/20/19 1154 calcitriol (ROCALTROL) capsule 0.5 mcg 0.5 mcg Oral DAILY 0.5 mcg at 1003 foLIC acid (FOLATE) tablet 1 mg 1 mg Oral DAILY AT 1700 1 mg at 05/04/19 1759 magnesium oxide (MAG-OX 400) tablet 400 mg 400 mg Oral BID 400 mg at 2220 multivitamin tablet 1 tablet 1 tablet Oral DAILY 1 tablet at 05/04/19 1003 traMADOL (ULTRAM) tablet 50 mg 50 mg Oral BIDPRN 50 mg at 05/02/19 0929 docusate (COLACE) capsule 100 mg 100 mg Oral BID 100 mg at 05/05/19 1948 Associated attestation - Olivier Hansen - 05/11/2019 6:04 PM CDTI personally examined the patient on 05/09/2019 and agree with the note by Dr. BANKS, on 05/09/2019as written. I actively participated in the decision- making process. Please see the resident's notefor additional details. Genesis Matt RN - 05/09/2019 9:35 AM CDTCare Coordinator Update Updated clinicals sent to [address] [place] [address] F: [phone]. Pending medical clearance to transfer to SNF. Update 05/09/19 1234 CM spoke with team, patient LTAC appropriate at this time. CM left message for patient daughter to return call to discuss, awaiting call back. Update 05/09/19 1525 CM left message for patient Fidel simms to return call to discuss LTAC referral/choice. Left message for patient granddaughter to return call. Update 05/09/19 1611 CM spoke with patient Fidel simms, discussing discharge plans. She is in agreement with LTAC upon discharge, CM discussed LTAC's closest to patient home , she has chosen [facility] ([address] [place] [id number], P: [phone]). Referral sent, pending facility acceptance/insurance authorization. Genesis Matt RN,BSN Manager Medicaid Department of Care Management [phone] signed by Genesis Matt RN at 05/09/2019 4:13 PM Poppy Monte MD - 05/08/2019 3:53 PM CDT PGY- 1 Medicine Progress Note/ Transfer Note Date of Service: 05/08/2019 15:53 Chief Complaint: none 24-HOUR EVENTS: -stable to be transferred to the floor -hypertensive; we hold anti-hypertension medication for now -VSS, afebrile -HGB stable at 8.4 SUBJECTIVE: Patient states she is doing all right; appears comfortable PHYSICAL EXAM: Vitals: 05/08/19 1210 05/08/19 1215 05/08/19 1218 05/08/19 1400 BP: (!) 150/79 (!) 162/86 133/76 (!) 140/88 BP Location: Left arm Left arm Left arm Patient Position: Supine Sitting Standing Pulse: 81 81 93 Resp: 16 12 15 Temp: TempSrc: SpO2: 98% 99% 98% Weight: Height: Intake/Output Summary (Last 24 hours) at 05/08/2019 1553 Last data filed at 05/08/2019 1400 Gross per 24 hour Intake 721 ml Output 0 ml Net 721 ml General: alert and oriented x 1; no apparent distress HEENT: pupils equal, round, reactive to light; extraocular movements intact; oropharynx clear; moistmucous membranes Neck: supple, no lymphadenopathy, no bruits, no JVD Lungs: clear to auscultation bilaterally Cardio: S1, S2 normal; no murmurs, rubs or gallops Extremities: bilateral putting edema LABS/IMAGING - reviewed, pertinent results as below: ASSESSMENT/PLAN Will Zack Hodge is a 78 year old female admitted to the hospital with: Grade D esophagitis Duodenal erosions UGIB Symptomatic anemia HFpEF HTN ESRD Chronic steroid use 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 -monitoring hemodynamic stability and -c/w CBC, BMP -f/u nephrology recs ( reassess need for dialysis tomorrow) -f/u GI recs -hold anti-hypertension meds for now PAIN: Controlled Prophylaxis: DVT- Contraindicated: Heparin Induced Thrombocytopenia and Thrombus (JEZ) Stress Ulcer: pantoprazole Code Status: addressed: full code Disposition Anticipated Discharge Date : Barriers to Discharge: Poppy Banks MD PGY-1, Neurology [place] team Pager [phone] END OF DAILY PROGRESS NOTE HOSPITAL COURSE Will Ayesha is a 78 y.o female with PMH of ESRD (newly declared),CHFpEF,HTN , RA, gout and dementia who presents as a transfer from [facility] due to concerns of HITand acute hypoxic respiratory failureinitially. Patient had hematology evaluate her due to concerns of HIT, however HIT antibody was negative on ARUP. She was being managed on the floor when she had sudden drop of Hgb with reports of melena overnight. During dialysis, she suffered a witness "seizure" and Rapid was called. Neurology was consulted and followed patient. EEG was negative for seizures. Nephro thinks it is a dialyzer reaction. With stability, she returned to the floor. She had an episode of melena with repeat Hgb dropping to5.6, putting her back to MICU. GI was consulted and ppi gtt wasstarted. 3 units of pRBC transfused. Grade D esophagitis seen on EGD. With stability, nephro was consulted for HD scheduling. She was transferred back to floor.We monitor patients condition and wait for possible SNF placement for this patient after dialysis on 05/05/19 .Duringone dialysis sessionpatient had an episode of hypotension. Patient had a large bloody BM(melena)today in the morning. HGB dropped to 5.9 , we transfused2 units of blood and 1 unit of cryo. She was sent to ICU and GI repeated EGD showing improved esophagus and 2 duodenal ulcer with 1 given epi injection. Patient Hgb remained stable after procedure. She has been hemodynamically stable with >24 hours of observation in the ICU. From ICU standpoint, stable for transfer to the floor. Nephrology will assess for need for dialysis. Previous hypotensive episode during dialysis could be attributable to dialyzer reaction and/or UGIB. CURRENT MEDICATIONS - reviewed. Current Facility-Administered Medications Medication Dose Route Frequency Last Rate Last Dose metoclopramide HCl (REGLAN) 5 mg in NaCl 0.9% (NS) piggyback 5 mg IV Piggyback TIDPRN MEALS metoprolol succinate XL (TOPROL XL) tablet 50 mg 50 mg Oral PRN sucralfate (CARAFATE) 100 mg/mL suspension 1,000 mg 1 g Oral TID 1,000 mg at 05/08/19 1231 EPINEPHrine 1:10,000 injection PRN 1 mg at 05/06/19 2251 esomeprazole (NEXIUM) 40 mg in NaCl 0.9% (NS) IV piggyback 40 mg IV Piggyback Q12H 40 mg at 05/08/19 0919 hydrocortisone (CORTEF) tablet 10 mg 10 mg Oral QPM hydrocortisone (CORTEF) tablet 20 mg 20 mg Oral QAM Polyethylene Glycol 3350 (MIRALAX) powder 17 g 17 g Oral BID 17 g at 0800 glucagon (GLUCAGEN DIAGNOSTIC KIT) injection 1 mg 1 mg Intramuscular PRN 1 mg at 04/20/19 1154 calcitriol (ROCALTROL) capsule 0.5 mcg 0.5 mcg Oral DAILY 0.5 mcg at 1003 foLIC acid (FOLATE) tablet 1 mg 1 mg Oral DAILY AT 1700 1 mg at 05/04/19 1759 magnesium oxide (MAG-OX 400) tablet 400 mg 400 mg Oral BID 400 mg at 194 multivitamin tablet 1 tablet 1 tablet Oral DAILY 1 tablet at 05/04/19 1003 traMADOL (ULTRAM) tablet 50 mg 50 mg Oral BIDPRN 50 mg at 05/02/19 0929 docusate (COLACE) capsule 100 mg 100 mg Oral BID 100 mg at 05/05/191947 Associated attestation - Olivier Hansen - 05/09/2019 12:47 PM CDTI personally examined the patient on 05/08/2019 and agree with the note by Dr. BANKS, on 05/08/2019as written. I actively participated in the decision- making process. Please see the resident's notefor additional details. Claudine Do MD - 05/08/2019 11:51 AM CDT Brief MICU Note/Transfer Date: 05/08/2019 11:51 ICU day: 4 Intubation Day: na Code Status: Full 12 Hour Events (should include: major events throughout the day, patient status , significant labs, radiology, consult updates): -No problems overnight -Orthostatics negative, hemodynamically stable -Hemoglobin stable at 8.4 -Pending H. Pylori antigen results Family update: -Patient's family not at bedside and not able to be reached today. Notified yesterday about improving status and transfer to floor. Plan for next 12 hours (should include: anticipated events, complications to watch for, pending labs/radiology/consults): -TTF -NOTE: temporarily restarted metoprolol 50 mg due to hypertension. This is a PRN order. Please hold for dialysis. Continue to monitor hemodynamic status. Hospital course: Brandon Hodge is a 78 y.o female with PMH of ESRD (newly declared),CHFpEF,HTN , RA, gout and dementia who presents as a transfer from [facility] due to concerns of HITand acute hypoxic respiratory failureinitially. Patient had hematology evaluate her due to concerns of HIT, however HIT antibody was negative on ARUP. She was being managed on the floor when she had sudden drop of Hgb with reports of melena overnight. During dialysis, she suffered a witness "seizure" and Rapid was called. Neurology was consulted and followed patient. EEG was negative for seizures. Nephro thinks it is a dialyzer reaction. With stability, she returned to the floor. She had an episode of melena with repeat Hgb dropping to5.6, putting her back to MICU. GI was consulted and ppi gtt wasstarted. 3 units of pRBC transfused. Grade D esophagitis seen on EGD. With stability, nephro was consulted for HD scheduling. She was transferred back to floor.We monitor patients condition and wait for possible SNF placement for this patient after dialysis on 05/05/19 .Duringone dialysis sessionpatient had an episode of hypotension. Patient had a large bloody BM(melena)today in the morning. HGB dropped to 5.9 , we transfused2 units of blood and 1 unit of cryo. She was sent to ICU and GI repeated EGD showing improved esophagus and 2 duodenal ulcer with 1 given epi injection. Patient Hgb remained stable after procedure. She has been hemodynamically stable with >24 hours of observation in the ICU. From ICU standpoint, stable for transfer to the floor. Nephrology will assess for need for dialysis. Previous hypotensive episode during dialysis could be attributable to dialyzer reaction and/or UGIB. Claudine Do MD Internal Medicine, PGY-1 [place] Team Pager#[phone] Olivier Trejo MD - 05/08/2019 12:55 AM CDT MICU Progress/transfer Note Date of Service: 05/08/2019 00:58 Reason for ICU admission: UGIB ICU Day: 3 Intubation Day: na Code Status: Full Last 24 hour events (major events): JL 1 non blood BM H pylori stool antigen ordered Subjective: No events overnight Ventilator Bundle: Sedation/Analgesia + RASS: none Stress ulcer prophylaxis: PPI DVT prophylaxis: SCD's Insulin drip: Nutrition: oral . Lines (with dates): Chiang: Intake/Output: Intake/Output Summary (Last 24 hours) at 05/08/2019 0058 Last data filed at 05/08/2019 0000 Gross per 24 hour Intake 436 ml Output 0 ml Net 436 ml Physical Exam: Temp: [36.2 C (97.1 F)-36.6 C (97.8 F)] Heart Rate (monitor): [69-96] Pulse: [71-96] Resp: [11-24] BP: (111-180)/(61-163) MAP (mmHg): [78-170] Constitutional: alert and oriented x 1 (person); no apparent distress HEENT: pupils equal, round, reactive to light; extraocular movements intact; oropharynx clear; moistmucous membranes Neck: supple, no lymphadenopathy, no bruits, no JVD Resp: clear to auscultation bilaterally Cardio: S1, S2 normal; no murmurs, rubs or gallops GI: soft; non-tender; non-distended; normoactive bowel sounds MSK: 1+ BLE pitting edema. Left IJ trauma cath and HD cathter WO surrounding erythema, purulence or oozing Integ: no rashes Neuro: no focal deficits Labs (pertinent only)/Imaging: No final results containing an impression from the past 2 days were found. Microbiology: na Assessment/Plan: Brandon Hodge is a 78 year old female admitted with UGIB* FEN/GI Grade D esophagitis Duodenal erosions UGIB Symptomatic anemia-2/2 blood lose S/p 2 units of blood and 1 unit of cryo. Patient Hgb remained stable. Bleeding appeared to come fromone of the duodenal ulcer. Patient had 1 non bloody BM and remained stable overnight -h/h Q6h -PPI BID -call IR for embolization if patient develops recurrent bleeding -FOLLOW-UP H pylori antigen Neuro Dementia Reported seizures Toxic metabolic encephalopathy Patient mentation appears to fluctuates. Was suppose to get MRI head but was cancelled. Appears nearbaseline. Will monitor for seizures -monitor -avoid sedating meds as much as possible Resp -h/x of acute hypercapnic respiratory failure No active issues. C/w to monitor Cardiovascular HFpEF HTN paroxysmal atrial fibrillation slightly volume overloaded on exam. Last HD session was stalled due to hypotension Will c/w to montior -hold lopressor in setting ID -Monitor for infection Renal ESRD -coordinate with nephro Endo Chronic steroid use Adrenal infuffeciecny -c/w Cortef 10mg Qam and 20mg Qpm Heme DIC vs HIT Both ruled out. Repeat DIC panel showed low fibrinogen. -1 unit cryo ordered -repeat fibrinogen after unit -monitor Other Gout RA. -monitor -treat symptomatically OtherDVT prophylaxis: SCD's Lines/Catheters: See rounding report Dispo: Prognosis: guarded Code Status: full Olivier Fairchild MD Hospital course: Brandon Hodge is a 78 y.o female with PMH of ESRD (newly declared),CHFpEF,HTN , RA, gout and dementia who presents as a transfer from [facility] due to concerns of HITand acute hypoxic respiratory failureinitially. Patient had hematology evaluate her due to concerns of HIT, however HIT antibody was negative on ARUP. She was being managed on the floor when she had sudden drop of Hgb with reports of melena overnight. During dialysis, she suffered a witness "seizure" and Rapid was called. Neurology was consulted and followed patient. EEG was negative for seizures. Nephro thinks it is a dialyzer reaction. With stability, she returned to the floor. She had an episode of melena with repeat Hgb dropping to5.6, putting her back to MICU. GI was consulted and ppi gtt was started. 3 units of pRBC transfused.Grade D esophagitis seen on EGD. With stability, nephro was consulted for HD scheduling. She was transferred back to floor.We monitor patients condition and wait for possible SNF placement for this patient after dialysis on 05/05/19 .During one dialysis session patient had an episode of hypotension. Patient had a large bloody BM(melena)today in the morning. HGB dropped to 5.9 , we transfused 2units of blood and 1 unit of cryo. She was sent to ICU and GI repeated EGD showing improved esophagus and 2 duodenal ulcer with 1 given epi injection. Patient Hgb remained stable after procedure. she had 1 BM that was non bloody and was stable to TTF after >24 hours of observation in the ICU Associated attestation - Joe Nunn - 05/08/2019 2:43 PM CDTAttending History Supplement: I personally examined the patient on 05/08/[address] Fairchild's resident note as written. I actively participated in the decision- making process. Please see the resident's note for additional details.Crista Perales MD - 05/07/2019 8:30 AM CDT Gastroenterology Progress Note Date: 05/07/2019 Name: Brandon Hodge : 1940 PCP: Sg Levy Reason for consult: HPI: Brandon Hodge is a 78 year old female who initially presented with AMS, was found to be uremicand started on HD, here hospital course was complicated by upper GI bleeding. EGD was done 04/28 and showed significant LA grade D esophagitis. Patient had recurrence of bleeding and EGD yesterday showed healing esophagitis and duodenal ulcer with adherent clot s/p treatment with epinephrine. No acute events overnight. Vitally and clinically stable. Hemoglobin is 9.4 and stable over the past12 hours. No further episodes of bleeding. No complications secondary to yesterday procedure. PMHx: Past Medical History: Diagnosis Date Altered mental status CHF (congestive heart failure) CKD (chronic kidney disease) Gout HTN (hypertension) RA (rheumatoid arthritis) PSurgical Hx: Past Surgical History: Procedure Laterality Date CHOLECYSTECTOMY unknown date ESOPHAGOGASTRODUODENOSCOPY N/A 04/28/2019 Surgeon: Stu Wilson MD; Location: [facility] ([facility]) OR Location Family Hx: Family History Problem Relation Age of Onset Breast Cancer Mother Hypertension Father Social Hx: Social History Socioeconomic History Marital status: Spouse name: Not on file Number of children: Not on file Years of education: Not on file Highest education level: Not on file Occupational History Not on file Social Needs Financial resource strain: Not on file Food insecurity: Worry: Not on file Inability: Not on file Transportation needs: Medical: Not on file Non-medical: Not on file Tobacco Use Smoking status: Never Smoker Smokeless tobacco: Never Used Substance and Sexual Activity Alcohol use: Not Currently Drug use: Not on file Sexual activity: Not Currently Lifestyle Physical activity: Days per week: Not on file Minutes per session: Not on file Stress: Not on file Relationships Social connections: Talks on phone: Not on file Gets together: Not on file Attends restoration service: Not on file Active member of club or organization: Not on file Attends meetings of clubs or organizations: Not on file Relationship status: Not on file Intimate partner violence: Fear of current or ex partner: Not on file Emotionally abused: Not on file Physically abused: Not on file Forced sexual activity: Not on file Other Topics Concern Not on file Social History Narrative 04/13/19 - [facility] from [facility] Medications: Current Facility-Administered Medications: EPINEPHrine 1:10,000 injection, , , PRN, Rizwan Samaniego, 1 mg at 05/06 2251 esomeprazole (NEXIUM) 40 mg in NaCl 0.9% (NS) IV piggyback, 40 mg, IV Piggyback, Q12H, Olivier Fairchild MD, 40 mg at 05/07/19 0808 hydrocortisone (CORTEF) tablet 10 mg, 10 mg, Oral, QPM, Jerica Martinez MD hydrocortisone (CORTEF) tablet 20 mg, 20 mg, Oral, QAM, Jerica Martinez MD lidocaine 1% (PF) (XYLOCAINE) injection 5 mL, 5 mL, Subcutaneous, PRN, Sandra Camachorick, DO NaCl 0.9% (NS) injection 10 mL, 10 mL, Slow IV Push, PRN, Sandra Camachorick, DO metoprolol tartrate (LOPRESSOR) tablet 25 mg, 25 mg, Oral, BID, Zoran Padilla MD, 25 mg at 05/05/191947 Polyethylene Glycol 3350 (MIRALAX) powder 17 g, 17 g, Oral, BID, Poppy Banks MD, 17 g at 05/04/19 2114 glucagon (GLUCAGEN DIAGNOSTIC KIT) injection 1 mg, 1 mg, Intramuscular, PRN , Jerica Martinez MD, 1 mg at 04/20/19 1154 calcitriol (ROCALTROL) capsule 0.5 mcg, 0.5 mcg, Oral, DAILY, Aglieco, Keli G, DO, 0.5 mcg at 05/04/19 1003 foLIC acid (FOLATE) tablet 1 mg, 1 mg, Oral, DAILY AT 1700, Aglieco, Keli G, DO, 1 mg at 05/04/19 1759 magnesium oxide (MAG-OX 400) tablet 400 mg, 400 mg, Oral, BID, Alex Diaz MD, 400 mg at 05/05/19 1948 multivitamin tablet 1 tablet, 1 tablet, Oral, DAILY, Aglieco, Keli G, DO, 1 tablet at 003 traMADOL (ULTRAM) tablet 50 mg, 50 mg, Oral, BIDPRN, Alex Diaz MD, 50 mg at 05/02/19 0929 docusate (COLACE) capsule 100 mg, 100 mg, Oral, BID, Alex Diaz MD, 100 mg at 05/05/198 ondansetron (ZOFRAN (PF)) injection 4 mg, 4 mg, Slow IV Push, Q6HPRN, Alex Diaz MD, 4 mg at 05/01/19 0607 ROS: General: (-) fever, (-) chills, (-) weight change, (-) dizziness, (-) lightheadedness, (-) decreasedappetite, (-) fatigue Skin: (-) rash, (-) lesion HEENT: (-) headache, (-) nasal discharge, (-) sore throat, (-) vision changes, Neck: (-) pain Heme: (-) bleeding disorder Resp: (-) cough, (-) shortness of breath Cardio: (-) chest pain, (-) palpitations GI: per HPI : (-) dysuria, (-) hematuria Endo: (-) polyuria (-) polydipsia Neuro: (-) numbness, (-) tingling ESSENCE: (-) muscle pain, (-) joint pain Psych: (-) suicidal ideation , (-) homicidal ideation PE: BP 129/79 | Pulse 88 | Temp 36.4 C (97.5 F) (Axillary) | Resp 15 | Ht 1.6 m (5' 3") | Wt 100.5 kg (221 lb 8 oz) | SpO2 97% | BMI 39.24 kg/m General: Patient is comfortable and in no acute distress HEENT/Eye: no scleral icterus, no conjunctival pallor Neck: No rigidity, supple Cardiovascular: S1,S2 were positive, no added sounds were heard Respiratory: Chest was clear to ausculation, bilaterally. No wheezes were heard Gastrointestinal: Soft, non tender, non distended, no scars, masses or pulsation. No rebound or guarding. No hepatomegaly Skin: Normal skin turgor, no rashes, bruising, petechiae or excoriations. Extremities: No clubbing, palmar erythema or dupuytrens contractures. No lower extremity edema. Pulses intact Neurologic: Oriented x 3, motor and sensory are grossly intact Psychiatric: normal effect. Labs - reviewed Recent Results (from the past 24 hour(s)) Type and Screen - ONCE HALI Collection Time: 05/06/19 1:44 PM Result Value Ref Range ABO & RH O POSITIVE IAT Negative PROFILE / HEMOGRAM Collection Time: 05/06/19 2:57 PM Result Value Ref Range WBC 16.45 (H) 4.30 - 11.10 10*3/L RBC 1.99 (L) 3.93 - 5.25 10*6/L HGB 5.9 (L) 11.6 - 15.0 g/dL HCT 19.0 (L) 35.7 - 45.2 % MCH 29.6 25.9 - 32.8 pg MCV 95.5 80.6 - 95.5 fL MCHC 31.1 (L) 31.6 - 35.1 g/dL PLT 127 (L) 166 - 358 10*3/L MPV 11.7 9.5 - 12.9 fL RDW-CV 19.0 (H) 12.0 - 15.5 % RDW-SD 63.9 (H) 39.0 - 49.9 fL NRBC x10^3 0.32 10*3/L NRBC/100 WBC 1.9 0.0 - 10.0 /100 WBCs IPF % 1.3 - 7.7 % Prepare Packed RBC (in units), 1 Units Collection Time: 05/06/19 3:24 PM Result Value Ref Range Cross Match Result Compatible ISBT Blood Type Code 5100 Unit Blood Type O Pos Unit Number [id number] Blood Expiration Date & Time Status Information Issued Product Identification Red Blood Cells Product Code [id number] Prepare Packed RBC (in units), 1 Units Collection Time: 05/06/19 5:50 PM Result Value Ref Range Cross Match Result Compatible ISBT Blood Type Code 5100 Unit Blood Type O Pos Unit Number [id number] Blood Expiration Date & Time Status Information Issued Product Identification Red Blood Cells Product Code [id number] Comprehensive Metabolic Panel Collection Time: 05/06/19 7:54 PM Result Value Ref Range NA 132 (L) 135 - 145 mmol/L K 4.3 3.5 - 5.0 mmol/L CL 102 98 - 108 mmol/L CO2 TOTAL 27 23 - 31 mmol/L AGAP 3 2 - 16 BUN 36 (H) 7 - 23 mg/dL GLUCOSE 85 70 - 110 mg/dL CREATININE 1.94 (H) 0.50 - 1.04 mg/dL TOTAL BILI 2.0 (H) 0.1 - 1.1 mg/dL CALCIUM 7.8 (L) 8.6 - 10.6 mg/dL T PROTEIN 4.0 (L) 6.3 - 8.2 g/dL ALBUMIN 1.8 (L) 3.5 - 5.0 g/dL ALK PHOS 41 34 - 122 U/L ALT(SGPT) 35 9 - 51 U/L AST(SGOT) 35 13 - 40 U/L eGFR Calculation (Non-) 25.0 mL/min/1.73m2 eGFR Calculation () 30.3 mL/min/1.73m2 aPTT Collection Time: 05/06/19 7:54 PM Result Value Ref Range APTT Patient 25 (L) 26 - 36 Seconds Prothrombin Time / INR Collection Time: 05/06/19 7:54 PM Result Value Ref Range PROTIME PATIENT 12.4 10.1 - 12.6 Seconds INR 1.1 Fibrinogen Level Collection Time: 05/06/19 7:54 PM Result Value Ref Range Fibrinogen 97 (LL) 167 - 453 mg/dL CBC WITH DIFFERENTIAL Collection Time: 05/06/19 7:54 PM Result Value Ref Range WBC 16.60 (H) 4.30 - 11.10 10*3/L RBC 3.19 (L) 3.93 - 5.25 10*6/L HGB 9.8 (L) 11.6 - 15.0 g/dL HCT 29.2 (L) 35.7 - 45.2 % MCV 91.5 80.6 - 95.5 fL MCH 30.7 25.9 - 32.8 pg MCHC 33.6 31.6 - 35.1 g/dL RDW-SD 50.8 (H) 39.0 - 49.9 fL RDW-CV 16.7 (H) 12.0 - 15.5 % PLT 98 (L) 166 - 358 10*3/L MPV 11.8 9.5 - 12.9 fL IPF % 5.9 1.3 - 7.7 % NRBC/100 WBC 3.1 0.0 - 10.0 /100 WBCs NRBC x10^3 0.51 10*3/L GRAN MAT (NEUT) % 68.0 % IMM GRAN % 3.10 % LYMPH % 16.3 % MONO % 12.3 % EOS % 0.2 % BASO % 0.1 % GRAN MAT x10^3(ANC) 11.27 (H) 1.88 - 7.09 10*3/uL IMM GRAN x10^3 0.52 (H) 0.00 - 0.06 10*3/uL LYMPH x10^3 2.70 1.32 - 3.29 10*3/uL MONO x10^3 2.05 (H) 0.33 - 0.92 10*3/uL EOS x10^3 0.04 0.03 - 0.39 10*3/uL BASO x10^3 <0.03 0.01 - 0.07 10*3/uL POLYCHROMASIA 2+ 2+ Prepare Cryoprecipitate (in units): 1 Units~Indication: 1) Fibrinogen < 100 mg/dL with bleeding or potential for bleeding associated with invasive procedure Collection Time: 05/06/19 11:24 PM Result Value Ref Range Unit Blood Type O Pos ISBT Blood Type Code 5100 Unit Number [id number] Blood Expiration Date & Time [id number] Status Information Issued Product Identification Cryoprecipitate Product Code [id number] PROFILE / HEMOGRAM Collection Time: 05/07/19 2:08 AM Result Value Ref Range WBC 18.05 (H) 4.30 - 11.10 10*3/L RBC 3.18 (L) 3.93 - 5.25 10*6/L HGB 9.4 (L) 11.6 - 15.0 g/dL HCT 29.0 (L) 35.7 - 45.2 % MCH 29.6 25.9 - 32.8 pg MCV 91.2 80.6 - 95.5 fL MCHC 32.4 31.6 - 35.1 g/dL PLT 104 (L) 166 - 358 10*3/L MPV 11.6 9.5 - 12.9 fL RDW-CV 17.2 (H) 12.0 - 15.5 % RDW-SD 50.7 (H) 39.0 - 49.9 fL NRBC x10^3 0.51 10*3/L NRBC/100 WBC 2.8 0.0 - 10.0 /100 WBCs IPF % 1.3 - 7.7 % aPTT Collection Time: 05/07/19 2:08 AM Result Value Ref Range APTT Patient 28 26 - 36 Seconds BASIC METABOLIC PANEL (NA, K, CL, CO2, GLUCOSE, BUN, CREATININE, CA) Collection Time: 05/07/19 2:08 AM Result Value Ref Range NA 132 (L) 135 - 145 mmol/L K 4.3 3.5 - 5.0 mmol/L CL 102 98 - 108 mmol/L CO2 TOTAL 29 23 - 31 mmol/L AGAP 1 (L) 2 - 16 BUN 41 (H) 7 - 23 mg/dL GLUCOSE 85 70 - 110 mg/dL CREATININE 2.09 (H) 0.50 - 1.04 mg/dL CALCIUM 7.8 (L) 8.6 - 10.6 mg/dL eGFR Calculation (Non-) 22.9 mL/min/1.73m2 eGFR Calculation () 27.8 mL/min/1.73m2 FIBRINOGEN Collection Time: 05/07/19 6:55 AM Result Value Ref Range Fibrinogen 161 (L) 167 - 453 mg/dL Imaging - reviewed Xr Chest 1 Vw Result Date: 04/21/2019 1. Stable position of right IJ dialysis catheter with the tip in the lower SVC. No pneumothorax. 2. Normal size cardiomediastinal silhouette with tortuous thoracic aorta. Bilateral hilar prominence andpulmonary vascular congestion. 3. Blunting of the right costophrenic angle suggestive of small pleural effusion or scarring.. Ct Head Wo Contrast Result Date: 04/28/2019 No acute intracranial abnormalities. I, Laverne Jean MD., have reviewed this study and agree with the above report. Us Retroperitoneal Complete Result Date: 04/13/2019 Echogenic kidneys, compatible with medical renal disease. I, Randy Segal MD. , have reviewed thisstudy and agree with the above report. Xr Kub Result Date: 04/24/2019 Nonobstructive bowel gas pattern. Ct Chest Pulmonary Angiogram Result Date: 04/22/2019 1. No pulmonary embolism. 2. Acute to subacute mild compression deformity of the L1 vertebral body. I, Magda Centeno MD., have reviewed this study and agree with the above report. Xr Elbow <3 Vw Right Result Date: 04/21/2019 No acute bony abnormality. Mild soft tissue swelling. Punctate densities in the proximal posterior forearm soft tissues may represent soft tissue calcifications or foreign bodies. Elbow joint effusion.In the setting of trauma , an effusion may indicate occult fracture or internal derangement. Elbow and shoulder osteoarthrosis. Xr Humerus 2 Vw Right Result Date: 04/21/2019 No acute bony abnormality. Mild soft tissue swelling. Punctate densities in the proximal posterior forearm soft tissues may represent soft tissue calcifications or foreign bodies. Elbow joint effusion.In the setting of trauma , an effusion may indicate occult fracture or internal derangement. Elbow and shoulder osteoarthrosis. Xr Shoulder 2+ Vw Right Result Date: 04/21/2019 No acute bony abnormality. Mild soft tissue swelling. Punctate densities in the proximal posterior forearm soft tissues may represent soft tissue calcifications or foreign bodies. Elbow joint effusion.In the setting of trauma , an effusion may indicate occult fracture or internal derangement. Elbow and shoulder osteoarthrosis. Assessment / Plan: Brandon Hodge is a 78 year old female with: Peptic ulcer disease: Likely due to uremia. - Continue IV PPI for at least 72 hours - If patient rebleeding, consult IR for embolization. - Advance diet as tolerated - Monitor hemoglobin every 6 hours - Avoid NSAIDs - Obtain stool H. Pylori and treat if positive Thank you for the consult, please call for additional questions. Patient seen and discussed with faculty, Dr. Danette Perales MD Gastroenterology & Hepatology, PGY-5 Pager [phone] Associated attestation - Rizwan Samaniego - 05/08/2019 9:25 AM CDTI have personally seen and examined the patient. I agree with the assessment and recommendations asdetailed in note by on 05/07/2019, and I was a part of the decision making process. Olivier Fairchild MD - 05/07/2019 12:05 AM CDT MICU Progress Note Date of Service: 05/07/2019 00:05 Reason for ICU admission: UGIB ICU Day: 2 Intubation Day: na Code Status: Full Last 24 hour events (major events): GI: see Dr. Perales note for details. Two ulcers seen in duodenum with one with a adherent clot. Epiwas injecting with blanching of surrounding mucosa and clot was suctioned. -Hgb remained stable -switched to PPI BID Subjective: No events overnight. Patient mentation appeared unchanged. Ventilator Bundle: Sedation/Analgesia + RASS: none Stress ulcer prophylaxis: PPI DVT prophylaxis: SCD's Insulin drip: Nutrition: oral . Lines (with dates): Chiang: Intake/Output: Intake/Output Summary (Last 24 hours) at 05/07/2019 0005 Last data filed at 05/07/2019 0000 Gross per 24 hour Intake 1260.8 ml Output Net 1260.8 ml Physical Exam: Temp: [36.2 C (97.2 F)-37 C (98.6 F)] Heart Rate (monitor): [80-92] Pulse: [50-100] Resp: [8-30] BP: (66-167)/(30-123) MAP (mmHg): [63-134] Constitutional: alert and oriented x 1 (person); no apparent distress HEENT: pupils equal, round, reactive to light; extraocular movements intact; oropharynx clear; moistmucous membranes Neck: supple, no lymphadenopathy, no bruits, no JVD Resp: clear to auscultation bilaterally Cardio: S1, S2 normal; no murmurs, rubs or gallops GI: soft; non-tender; non-distended; normoactive bowel sounds MSK: 1+ BLE pitting edema. Left IJ trauma cath and HD cathter WO surrounding erythema, purulence or oozing Integ: no rashes Neuro: no focal deficits Labs (pertinent only)/Imaging: No final results containing an impression from the past 2 days were found. Microbiology: na Assessment/Plan: Brandon Hodge is a 78 year old female admitted with UGIB* FEN/GI Grade D esophagitis Duodenal erosions UGIB Symptomatic anemia-2/2 blood lose S/p 2 units of blood and 1 unit of cryo. Patient Hgb remained stable. Bleeding appeared to come fromone of the duodenal ulcer. -h/h Q6h -PPI BID -call IR for embolization if patient develops recurrent bleeding Neuro Dementia Reported seizures Toxic metabolic encephalopathy Patient mentation appears to fluctuates. Was suppose to get MRI head but was cancelled. Appears nearbaseline. Will monitor for seizures -monitor -avoid sedating meds as much as possible Resp -h/x of acute hypercapnic respiratory failure No active issues. C/w to monitor Cardiovascular HFpEF HTN paroxysmal atrial fibrillation slightly volume overloaded on exam. Last HD session was stalled due to hypotension Will c/w to montior -hold lopressor in setting ID -Monitor for infection Renal ESRD -coordinate with nephro Endo Chronic steroid use Adrenal infuffeciecny -c/w Cortef 10mg Qam and 20mg Qpm Heme DIC vs HIT Both ruled out. Repeat DIC panel showed low fibrinogen. -1 unit cryo ordered -repeat fibrinogen after unit -monitor Other Gout RA. -monitor -treat symptomatically OtherDVT prophylaxis: SCD's Lines/Catheters: See rounding report Dispo: Prognosis: guarded Code Status: full Olivier Fairchild MD Hospital course: Brandon Hodge is a 78 y.o female with PMH of ESRD (newly declared),CHFpEF,HTN , RA, gout and dementia who presents as a transfer from [facility] due to concerns of HITand acute hypoxic respiratory failureinitially. Patient had hematology evaluate her due to concerns of HIT, however HIT antibody was negative on ARUP. She was being managed on the floor when she had sudden drop of Hgb with reports of melena overnight. During dialysis, she suffered a witness "seizure" and Rapid was called. Neurology was consulted and followed patient. EEG was negative for seizures. Nephro thinks it is a dialyzer reaction. With stability, she returned to the floor. She had an episode of melena with repeat Hgb dropping to5.6, putting her back to MICU. GI was consulted and ppi gtt was started. 3 units of pRBC transfused.Grade D esophagitis seen on EGD. With stability, nephro was consulted for HD scheduling. She was transferred back to floor.We monitor patients condition and wait for possible SNF placement for this patient after dialysis on 05/05/19 .During one dialysis session patient had an episode of hypotension. Patient had a large bloody BM(melena)today in the morning. HGB dropped to 5.9 , we transfused 2units of blood and 1 unit of cryo. She was sent to ICU and GI repeated EGD showing improved esophagus and 2 duodenal ulcer with 1 given epi injection. Patient Hgb remained stable after procedure. Associated attestation - Joe Nunn - 05/07/2019 11:26 AM CDTAttending History Supplement: I personally examined the patient on 05/07/[address] Fairchild's resident note as written. I actively participated in the decision- making process. Please see the resident's note for additional details. Anemia due to acute blood loss and transfused PRBC. No active blood loss and Hgb 8.7. To assess orthostatic BP measurements. To undergo hemodialysis without removal of volume.Poppy Banks MD - 05/06/2019 4:21 PM CDT [facility] Team Progress/Transfer Note Date of Service: 05/06/2019 16:22 Days Since Admission: 23 Chief Complaint: melena 24-HOUR EVENTS: -had one episode of melena overnight - patient became hypotensive in the dialysis unit -after repeated GI bleed, HGB dropped to 5.9 , we transfused 2 units of RBCs HOSPITAL COURSE: Will Sallins is a 78 y.o female with PMH of ESRD (newly declared),CHFpEF,HTN , RA, gout and dementia who presents as a transfer from [facility] due to concerns of HITand acute hypoxic respiratory failureinitially. Patient had hematology evaluate her due to concerns of HIT, however HIT antibody was negative on ARUP. She was being managed on the floor when she had sudden drop of Hgb with reports of melena overnight. During dialysis, she suffered a witness "seizure" and Rapid was called. Neurology was consulted and followed patient. EEG was negative for seizures. Nephro thinks it is a dialyzer reaction. With stability, she returned to the floor. When patient returned, she found to be delerious and non-commumicative. She had an episode of melena with repeat Hgb dropping to 5.6 , putting her back to MICU. GI was consulted and ppi gtt was started. 3 units of pRBC transfused. Grade D esophagitis seen on EGD. With stability, nephro was consulted for HD scheduling. She was transferred back to floor.We monitor patients condition and wait for possible SNF placement for this patient after dialysis on 05/05/19.At HD on 05/05, she developed hypotension and chill, terminating the session. During the dialysis session today, patient had an episode of hypotension. Patient had a large bloody BM (melena) today in the morning. HGB dropped to 5.9 , we transfused 2 units of blood. GI on-board, planning for possible EGD today later one. Patient is unstable due to GI bleeding and hypotension. Transferred from the floor to to the ICU. OBJECTIVE: Vitals: reviewed Temp: [36.2 C (97.2 F)-37 C (98.6 F)] Pulse: [50-100] Resp: [16-24] BP: (82-129)/(30-76) MAP (mmHg): [66-75] O2: well sat on room air Vitals: 05/06/19 1427 05/06/19 1518 05/06/19 1558 05/06/19 1613 BP: 115/69 101/76 102/48 (!) 86/51 Pulse: 87 86 86 84 Resp: 16 24 21 Temp: 36.9 C (98.4 F) 37 C (98.6 F) TempSrc: Axillary Axillary SpO2: 97% 94% 100% 100% Weight: Height: Intake/Output: Intake/Output Summary (Last 24 hours) at 05/06/2019 1622 Last data filed at 05/06/2019 0408 Gross per 24 hour Intake 200 ml Output Net 200 ml Physical Exam: Physical Exam Constitutional: She appears well-developed and well-nourished. LABS/IMAGING - reviewed, pertinent results as below: ASSESSMENT/PLAN Will Zack Hodge is a 78 year old female admitted to the hospital with: Acute Hypercapnic Respiratory Failure, resolved Toxic Metabolic Encephalopathy- resolving Dementia Seizure Thrombocytopenia Patient's breathing status and mental status much improved from before when she was transferred to ICU. Will continue to monitor acute change in breathing or mental status. - CT: no intracranial abnormality - Neuro following patient - Mental status gradually improving ESRD (newly declared, TThSat) Paroxymal A.Fib w/ RVR, resolved HFpEF HTN Hypoglycemia 2/2 Chronic Prednisone use leading to AI - discuss with nephrology on final discharge recs. - lopressor 25 mg BID - cortef 50 mg Q8h. Can transition to home Prednisone 10 mg daily in AM. - calcitriol 0.5 mcg - midline in AM. Grade D Esophagitis Duodenal Erosions Melena - GI on-board - h/h daily - PPI PAIN: Controlled Tylenol Prophylaxis: DVT- heparin Stress Ulcer: pantoprazole Code Status: addressed: FULL Poppy Banks MD PGY-1, Neurology [place] Team Pager # [phone] END OF DAILY PROGRESS NOTE CURRENT MEDICATIONS - reviewed. Current Facility-Administered Medications Medication Dose Route Frequency Last Rate Last Dose esomeprazole (NEXIUM) 40 mg in NaCl 0.9% (NS) 100 mL MINI-BAG 40 mg IV Piggyback Q12H hydrocortisone (CORTEF) tablet 10 mg 10 mg Oral QPM hydrocortisone (CORTEF) tablet 20 mg 20 mg Oral QAM sodium citrate anticoagulant 4 gram /100 mL (4 %) injection 4 mL 4 mL Catheter Dwell DIALYSIS ONCE PRN - [place] [facility] lidocaine 1% (PF) (XYLOCAINE) injection 5 mL 5 mL Subcutaneous PRN NaCl 0.9% (NS) injection 10 mL 10 mL Slow IV Push PRN metoprolol tartrate (LOPRESSOR) tablet 25 mg 25 mg Oral BID 25 mg at 1947 Polyethylene Glycol 3350 (MIRALAX) powder 17 g 17 g Oral BID 17 g at 2113 glucagon (GLUCAGEN DIAGNOSTIC KIT) injection 1 mg 1 mg Intramuscular PRN 1 mg at 04/20/19 1154 calcitriol (ROCALTROL) capsule 0.5 mcg 0.5 mcg Oral DAILY 0.5 mcg at 1003 foLIC acid (FOLATE) tablet 1 mg 1 mg Oral DAILY AT 1700 1 mg at 05/04/19 1759 magnesium oxide (MAG-OX 400) tablet 400 mg 400 mg Oral BID 400 mg at 1947 multivitamin tablet 1 tablet 1 tablet Oral DAILY 1 tablet at 05/04/19 1003 traMADOL (ULTRAM) tablet 50 mg 50 mg Oral BIDPRN 50 mg at 05/02/19 0929 docusate (COLACE) capsule 100 mg 100 mg Oral BID 100 mg at 05/05/191947 ondansetron (ZOFRAN (PF)) injection 4 mg 4 mg Slow IV Push Q6HPRN 4 mg at 05/01/19 0607 Associated attestation - Olivier Hansen - 05/06/2019 10:04 PM CDTI personally examined the patient on 05/06/2019 and agree with the note by Dr. BANKS, on 05/06/2019as written. HGB continued to drop and BP remained below our threshold - patient determinedto need more intensive monitoring in the late afternoon. BLood treansfusing, will need endoscopy if blood loss continues. I actively participated in the decision-making process. Please see the resident' s notefor additional details. Matthew Epstein MD - 05/06/2019 3:45 PM CDTPULMONARY / MICU NOTE The patient was discussed with Primary team at 05/06/2019 15:46. There are no available ICU beds at this time. The pt will be accepted to MICU service when a bed is available, but until that time remains under the care of the PRIMARY TEAM. Matthew Epstein MD Fellow in Pulmonary & Critical care Medicine Pager: [phone] l-Jaskaran Lal MD - 05/06/2019 3:43 PM CDT GI Progress Note Date of Service: 05/06/2019 15:43 Chief Complaint: Melena 24 Hour Events: - Patient with a drop in Hgb. - BP is borderline and HR cannot be an indicative of her hemodynamic status given she is on BB. - Large melanic BM today Subjective: Patient denied any complaints. She is altered and Hx is not reliable. Physical exam: Temp: [36.2 C (97.2 F)-37 C (98.6 F)] Pulse: [50-100] Resp: [16-20] BP: (82-129)/(30-76) MAP (mmHg): [72-75] General: Alert and oriented X1, no apparent distress HEENT: No scleral icterus Lungs: CTAB CV: RRR, S1, S2 normal, no murmurs rubs or gallops, JVD not elevated. Abdomen: soft, nontender/nondistended, bowel sounds normoactive Extremities: no cyanosis, clubbing or edema Skin: no rashes, bruising noted. Labs: Reviewed 05/01/2019 00:36 05/01/2019 03:17 05/05/2019 04:14 05/06/2019 04:46 05/06/2019 14:57 HGB 9.8 (L) 10.1 (L) 7.2 (L) 6.8 (L) 5.9 (L) Imaging: Reviewed EGD 04/28 - LA Grade D (one or more mucosal breaks involving at least 75% of esophageal circumference) esophagitis was found 29 to 39 cm from the incisors. - The entire examined stomach was normal. - A few localized erosions were found in the second portion of the duodenum. - Normal stomach. - Duodenal erosions. - No specimens collected. CURRENT MEDICATIONS: Reviewed Assessment/Plan: LA Grade D esophagitis Melena Comment: Patient initially presented with AMS, was declared ESRD and started on HD, here hospital course was complicated by concern for HIT which was ruled out and argatroban was discontinued, also c/bUGIB for which EGD was done 04/28 and showed significant LA grade D esophagitis. Patient remained stable and showed no evidence of further bleeding until last night. Patient had another large episode ofmelena this morning with significant Hgb drop. Concern for HD stability given borderline BP and we cannot rely on HR given patient is on BB. Possibly etiology is esophagitis, but will need to rule out other etiology including PUD and Dieulafoy's lesion. Plan: - Please transfer the patient to the ICU for closer monitoring. - Please maintain 2 large bore IVs at all times. - Please transfuse 2U PRBCs now. - H&H Q4H. Maintain Hgb > 7. - Keep the patient on PPI gtt - Keep the patient NPO for EGD today. - Please inform GI fellow applications programmer analyst if any changes including HD instability or overt bleeding. Jaskaran Russo MD PGY4 - Gastroenterology and hepatology Pager # : [phone] Associated attestation - Lawrence Lamas MD - 05/06/2019 7:59 PM CDTI personally examined the patient on 05/06/[address] Russo's resident/fellow note aswritten . I actively participated in the decision- making process. Please see the resident's note for additional details. Alexa Knowles, OBEY - 05/06/2019 9:42 AM CDT NEPHROLOGY PROGRESS NOTE 05/06/2019 09:42 CC: HIT CURRENT MEDICATIONS - reviewed. Current Facility-Administered Medications Medication Dose Route Frequency Last Rate Last Dose esomeprazole (NEXIUM) 40 mg in NaCl 0.9% (NS) 100 mL MINI-BAG 40 mg IV Piggyback Q12H hydrocortisone (CORTEF) tablet 10 mg 10 mg Oral QPM hydrocortisone (CORTEF) tablet 20 mg 20 mg Oral QAM sodium citrate anticoagulant 4 gram /100 mL (4 %) injection 4 mL 4 mL Catheter Dwell DIALYSIS ONCE PRN - [place] DSU heparin injection 5,000 Units 5,000 Units Subcutaneous Q12H 5,000 Units at 05/05/191956 lidocaine 1% (PF) (XYLOCAINE) injection 5 mL 5 mL Subcutaneous PRN NaCl 0.9% (NS) injection 10 mL 10 mL Slow IV Push PRN metoprolol tartrate (LOPRESSOR) tablet 25 mg 25 mg Oral BID 25 mg at 1947 Polyethylene Glycol 3350 (MIRALAX) powder 17 g 17 g Oral BID 17 g at 2113 glucagon (GLUCAGEN DIAGNOSTIC KIT) injection 1 mg 1 mg Intramuscular PRN 1 mg at 04/20/19 1154 calcitriol (ROCALTROL) capsule 0.5 mcg 0.5 mcg Oral DAILY 0.5 mcg at 1003 foLIC acid (FOLATE) tablet 1 mg 1 mg Oral DAILY AT 1700 1 mg at 05/04/19 1759 magnesium oxide (MAG-OX 400) tablet 400 mg 400 mg Oral BID 400 mg at 1947 multivitamin tablet 1 tablet 1 tablet Oral DAILY 1 tablet at 05/04/19 100 traMADOL (ULTRAM) tablet 50 mg 50 mg Oral BIDPRN 50 mg at 05/02/19 0929 docusate (COLACE) capsule 100 mg 100 mg Oral BID 100 mg at 05/05/191947 ondansetron (ZOFRAN (PF)) injection 4 mg 4 mg Slow IV Push Q6HPRN 4 mg at 05/01/19 0607 PHYSICAL EXAM BP: (89-172)/(43-117) Temp: [36.1 C (97 F)-36.4 C (97.5 F)] Temp source: Tympanic (05/06 0834) Pulse: [67-143] Resp: [16-20] SpO2: [92 %-100 %] Height: -- Weight: [100.5 kg (221 lb 8 oz)] Intake/Output Summary (Last 24 hours) at 05/06/2019 0942 Last data filed at 05/06/2019 0408 Gross per 24 hour Intake 300 ml Output Net 300 ml Wt Readings from Last 3 Encounters: 05/06/19 100.5 kg (221 lb 8 oz) General: no acute distress and alert ENT: pharynx normal Cardiovascular: Heart regular, rate, rhythm, + murmurs; no edema Respiratory: clear to auscultation, no respiratory distress GI: abd soft, non-tender, non-distended, +BS Skin: intact and warm, dry Neuro: alert, orient TO PERSON AVF/AVG :[facility] LABS/IMAGING - reviewed, pertinent results as below: Cell count Recent Labs 05/05/1941305/06/19445 WBC 11.73* 12.73* HGB 7.2* 6.8* MCV 94.2 96.5* PLT 120* 125* Chemistry Recent Labs 05/04/19 03505/05/1941305/06/19446 NA 132* 130* 132* K 4.6 4.9 4.6 CL 100 100 102 TCO2 28 31 29 CREAT 2.48* 2.97* 2.88* GLU 114* 91 78 CA 8.1* 8.2* 8.1* Coagulation Profile Recent Labs 05/04/1935105/05/1941305/06/19446 APTTPAT 27 28 30 LFTs No results for input(s): AST, ALT, ALKPHOS, IDA, LIPASE, BILIT, BILICONJ, BILIUNCON in the last 72 hours. Invalid input(s): ALB Arterial Blood Gas Recent Labs 05/05/19 1156 ACPH 7.47* ACPCO2 39 ACPO2 426* ACHCO3 28* ACNA 131* ACK 4.4 ACCAIONZ 4.80 ACBE 3.5* Urinalysis No results for input(s): UPROTEIN, UGLUCOSE, UKETONES, UBILI, UBLOOD, UUROBILIN , ULEUKEST, UNITRITE,USPGRAV in the last 72 hours. No results for input(s): CK in the last 72 hours. No results found for: VANCOT No results found for: PTHINTACT FERRITIN Date Value Ref Range Status 04/20/2019 340.0 (H) 11.0 - 264.0 ng/mL Final % FE SAT Date Value Ref Range Status 04/20/2019 25 20 - 50 % Final ASSESSMENT/PLAN: TELEVISION ACTOR AT BEDSIDE FOR THE FIRST 30 MINUTES, TO EVALUATE HER STATUS SINCE SHE HAD SEIZURES WITHIN THIS TIMEFRAME WHEN GETTING TRADITIONAL HD IN THE UNIT. PATIENT IS PRELOAD DEPENDENT AND UNABLE TO PULL ANYFLUIDS OFF, BOLUS GIVEN FOR HYPOTENSIVE EVENT. PATIENT BECAME UNRESPONSIVE, ONLY MOANING TO STERNALRUB. BP HAD TO BE MONITORED EVERY 5 MINUTES FOR VIGILANCE OF HYPOTENSIVE EVENT/ SEIZURE ACTIVITY. PATIENT DROPPED TO 80/40 WITH LETHARGY BOLUS GIVEN. PATIENT WILL NEED A HIGHER LEVEL OF CARE TO BE ABLE TO COMPLETE HER HD SESSION. ALSO, COOL DIALYSATE, USE PROFILE 2, USED DIALYZER 160 NR, FLUSHED WITH ONE LITER OF FLUID. TRYING TO SEE IF DIALYZER REACTION. NO SEIZURE ACTIVITY TODAY PLAN ESRD on hemodialysis (primary encounter diagnosis) Comment: tts, EDW ? Plan: HD today and renally dose medications. Secondary hypertension due to renal disease Comment: LABILE, PRELOAD DEPENDENT Plan: BOLUS GIVEN NO FLUIDS REMOVED. PLEASE ORDER ECHO, PATIENT MAY NEED HEART CATH, Metabolic acidosis Comment: AT GOAL Plan: Continue to monitor no treatment at this time. Secondary hyperparathyroidism (of renal origin) Comment: CA LOW Plan: Take binders with meals. Anemia in chronic kidney disease Comment: HGB LOW, TARRY BLACK STOOL Plan: GI BLEED, Epogen for HGB < 10. Nutritional assessment Comment: NO ISSUES Plan: FOLLOW RENAL DIET Vascular access for dialysis for ESRD Comment: ACCESS WITH REVERSED LINES, POSSIBLE CLOTTING Plan: PLEASE SCHEDULE IR FOR ISSUES WITH ACCESS Potassium (K) excess Comment: NORMAL Plan: Continue to monitor no treatment at this time. Patient seen, examined and discussed with attending lease examiner DR CRISPIN Knowles, MSN, RN, ACNP-C Department of Nephrology Nurse Practitioner Office [phone] Associated attestation - Mikel Roa MD - 05/10/2019 1:41 PM CDTI was asked by TELEVISION ACTOR to evaluate the patient. I reviewed the Charts and examine the patient. I personally participated in the decision-making process as relates to this patient's medical condition and agree with TELEVISION ACTOR's Note . Please refer to TELEVISION ACTOR's progress note for details of the medical care provided with following additions. Patient with ESRD needs HD she had low BP and seizure episodes during dialysis , considering dialyzer reaction but she had with all available dialyzers. We tried next stage and it did well. Echo is normal , which rule out tamponade or preload dependent I talked to her lease examiner and updated about her We will do HD with low UF and flush the circuit x 2 with saline Mikel Roa MD Inventory Specialist Manager Transplant Nephrology Lali Hrenández, MARY GRACE - 05/06/2019 9:26 AM CDTCare Management Note Pt not likely to DC over the weekend to [address] [place], [place] [address] F: [phone]. Auth is day 2 of 8. Need P2P with [facility]'s Dr. Escamilla and [facility] [place]le [phone]. CM called Gila this am and spoke with [phone], and gave Dr. Escamilla's cell number for their lease examiner to call. Tracey to to confirm lease examiner has Dr. Escamilla's #. [facility] Team feels patient may have allergic reaction to HD bath. Ambulance , h&p, facesheet, PASRR efaxed, & copy of Gila HD chair in pts chart CM called Gila with update patient not transferring today. Pts HD chair MWF at 3:00pm Katlyn Hernández RN, BSN Manager Medicaid Lali Martinez RN - 05/06/2019 9:17 AM CDTCare Management Note CM called Gila [phone], to f/u that [facility] lease examiner called [facility]'s lease examiner Dr. Escamilla spoke with Elsi Webb SW is off. Explained to Tracey that we need a P2P as the patient may have an allergic reaction to the HD bath. Tracey will contact their lease examiner and get Dr. Roa's number. Tracey will call CM back. Katlyn Hernández RN, BSN Care Coordinator 9: 25 AM Yuki Conner PTA - 05/05/2019 3:20 PM CDTPHYSICAL THERAPY NOTE: Attempted to see patient in AM. Patient currently out of room for dialysis. Will return later for PT as time permits. Yuki Still PTA Pager #: [phone] Supervising PT Olivia Montoya Lali Martinez RN - 05/05/2019 11:49 AM CDTCare Management Note CM spoke with Anthony Team. After patient transferred back from HD. [facility]'s lease examiner Dr. Howard to speak with [facility] lease examiner. CM call Gila [phone], spoke with Elsi CORI gave Dr. Gaspar's number and requested that he get cb from [facility]. CORI Elsi will call CM back to confirmed P2P. CM wait cb. Katlyn Hernández, RN, BSN Care Coordinator 11: 56 AM Lali Martinez RN - 05/05/2019 11:14 AM CDTCare Management Note @ 10:18, CM was contacted by pts insurance [facility] [phone], that patient approved to go to [phone]. @ 10:30 Rapid called on patient in HD. CM will f/u with Service on stable to [facility]. Katlyn Hernández RN, BSN Manager Medicaid Alexa Vega, [facility] - 05/05/2019 9:57 AM CDT NEPHROLOGY PROGRESS NOTE 05/05/2019 09:57 CC: access clotted CURRENT MEDICATIONS - reviewed. Current Facility-Administered Medications Medication Dose Route Frequency Last Rate Last Dose sodium citrate anticoagulant 4 gram /100 mL (4 %) injection 4 mL 4 mL Catheter Dwell DIALYSIS ONCE - [place] DSU hydrocortisone (CORTEF) tablet 20 mg 20 mg Oral QPM 20 mg at 05/04/19 1759 hydrocortisone (CORTEF) tablet 40 mg 40 mg Oral QAM heparin injection 5,000 Units 5,000 Units Subcutaneous Q12H Stopped at 0800 lidocaine 1% (PF) (XYLOCAINE) injection 5 mL 5 mL Subcutaneous PRN NaCl 0.9% (NS) injection 10 mL 10 mL Slow IV Push PRN metoprolol tartrate (LOPRESSOR) tablet 25 mg 25 mg Oral BID 25 mg at 4 omeprazole (PRILOSEC) capsule 40 mg 40 mg Oral BID 40 mg at 05/04/192113 Polyethylene Glycol 3350 (MIRALAX) powder 17 g 17 g Oral BID 17 g at 2113 glucagon (GLUCAGEN DIAGNOSTIC KIT) injection 1 mg 1 mg Intramuscular PRN 1 mg at 04/20/19 115 calcitriol (ROCALTROL) capsule 0.5 mcg 0.5 mcg Oral DAILY 0.5 mcg at 100 foLIC acid (FOLATE) tablet 1 mg 1 mg Oral DAILY AT 1700 1 mg at 05/04/19 175 magnesium oxide (MAG-OX 400) tablet 400 mg 400 mg Oral BID 400 mg at 2113 multivitamin tablet 1 tablet 1 tablet Oral DAILY 1 tablet at 05/04/19 100 traMADOL (ULTRAM) tablet 50 mg 50 mg Oral BIDPRN 50 mg at 05/02/19 0929 docusate (COLACE) capsule 100 mg 100 mg Oral BID 100 mg at 05/04/192113 ondansetron (ZOFRAN (PF)) injection 4 mg 4 mg Slow IV Push Q6HPRN 4 mg at 05/01/19 0607 PHYSICAL EXAM BP: (93-142)/(47-97) Temp: [36 C (96.8 F)-37.1 C (98.7 F)] Temp source: Tympanic (05/05 928) Pulse: [62-90] Resp: [18-21] SpO2: [93 %-100 %] Height: -- Weight: [100 kg (220 lb 6.3 oz)-100 kg (220 lb 6.4 oz)] Intake/Output Summary (Last 24 hours) at 05/05/2019 0957 Last data filed at 05/05/2019 0700 Gross per 24 hour Intake 370 ml Output Net 370 ml Wt Readings from Last 3 Encounters: 05/05/19 100 kg (220 lb 6.3 oz) General: no acute distress and alert ENT: pharynx normal Cardiovascular: Heart regular, rate, rhythm, no murmurs; no edema Respiratory: clear to auscultation, no respiratory distress GI: abd soft, non-tender, non-distended, +BS Skin: intact and warm, dry Neuro: alert, oriented AVF/AVG :[facility] LABS/IMAGING - reviewed, pertinent results as below: Cell count Recent Labs 05/05/19 0414 WBC 11.73* HGB 7.2* MCV 94.2 PLT 120* Chemistry Recent Labs 05/03/19 0514 05/03/19 0742 05/04/19 0352 05/05/19 0414 NA 131* -- 132* 130* K 4.8 -- 4.6 4.9 CL 101 -- 100 100 TCO2 29 -- 28 31 CREAT 2.68* -- 2.48* 2.97* GLU 105 -- 114* 91 PHOS 2.5 2.5 -- -- MG 2.4 2.4 -- -- CA 7.9* -- 8.1* 8.2* Coagulation Profile Recent Labs 05/03/19 0515 05/04/19 0352 05/05/19 0414 APTTPAT 27 27 28 LFTs No results for input(s): AST, ALT, ALKPHOS, IDA, LIPASE, BILIT, BILICONJ, BILIUNCON in the last 72 hours. Invalid input(s): ALB Arterial Blood Gas No results for input(s): ACPH, ACPCO2, ACPO2, ACHCO3, ACNA, ACK, ACCAIONZ, ACBE in the last 72 hours. Urinalysis No results for input(s): UPROTEIN, UGLUCOSE, UKETONES, UBILI, UBLOOD, UUROBILIN , ULEUKEST, UNITRITE,USPGRAV in the last 72 hours. No results for input(s): CK in the last 72 hours. No results found for: VANCOT No results found for: PTHINTACT FERRITIN Date Value Ref Range Status 04/20/2019 340.0 (H) 11.0 - 264.0 ng/mL Final % FE SAT Date Value Ref Range Status 04/20/2019 25 20 - 50 % Final ASSESSMENT/PLAN: ESRD on hemodialysis (primary encounter diagnosis) Comment: TTS, EDW 98kg Plan: HD today and renally dose medications. Secondary hypertension due to renal disease Comment: bp trending down Plan: hold bp medications on the day of hd Metabolic acidosis Comment: at goal Plan: Continue to monitor no treatment at this time. Secondary hyperparathyroidism (of renal origin) Comment: ca low Plan: Take binders with meals. Anemia in chronic kidney disease Comment: HGB LOW Plan: Epogen for HGB < 10. Nutritional assessment Comment: no issues Plan: Follow renal diet. Vascular access for dialysis for ESRD Comment: [facility], pending declot of avf, when k corrected Plan: USE TODAY FOR HD Potassium (K) excess Comment: AT GOAL Plan: Continue to monitor no treatment at this time Patient seen, examined and discussed with attending lease examiner Dr Crispin Knowles, MSN, RN, ACNP-C Department of Nephrology Nurse Practitioner Office [phone] Associated attestation - Mikel Roa MD - 05/10/2019 1:41 PM CDTI was asked by TELEVISION ACTOR to evaluate the patient. I reviewed the Charts and examine the patient. I personally participated in the decision-making process as relates to this patient's medical condition and agree with TELEVISION ACTOR's Note . Please refer to TELEVISION ACTOR's progress note for details of the medical care provided with following additions. Patient with ESRD needs HD she had low BP and seizure episodes during dialysis , considering dialyzer reaction but she had with all available dialyzers. We tried next stage and it did well. Echo is normal , which rule out tamponade or preload dependent I talked to her lease examiner and updated about her We will do HD with low UF and flush the circuit x 2 with saline Mikel Roa MD Inventory Specialist Manager Transplant Nephrology Mark Garcia OT - 05/05/2019 9:21 AM CDT05/05/2019 OCCUPATIONAL THERAPY NOTE: Attempted to see patient in AM however patient currently receiving HD per RN report. Jacobo ROACH/Nayeli Pager [phone] Supervising OTR Beverly Pimentel Kiran Balbuena MD - 05/05/2019 7:41 AM CDT PGY-1 [facility] Team Progress Note Date of Service: 05/05/2019 07:41 Days Since Admission: 22 Chief Complaint: Chief Complaint Patient presents with Other "lab draw" Tremors 24-HOUR EVENTS: No acute event overnight SUBJECTIVE: Ms. Hodge was doing well this morning. However, during HD, she developed chill and tremor. She wasoriented during the session, but complained of chill. Patient was returned to the room and said she was fine. OBJECTIVE: Vitals: reviewed Temp: [36.2 C (97.2 F)-37.1 C (98.7 F)] Pulse: [67-96] Resp: [18-21] BP: (93-141)/(47-97) O2: well sat on room air Vitals: 05/04/19 2236 05/05/19 0428 05/05/19 0711 05/05/19 0732 BP: (!) 120/97 135/47 (!) 141/75 Pulse: 67 71 67 Resp: 20 20 20 21 Temp: 37.1 C (98.7 F) 36.4 C (97.5 F) 36.2 C (97.2 F) TempSrc: Oral Axillary Axillary SpO2: 100% 100% 100% 100% Weight: 100 kg (220 lb 6.4 oz) Height: Intake/Output: Intake/Output Summary (Last 24 hours) at 05/05/2019 0741 Last data filed at 05/05/2019 0700 Gross per 24 hour Intake 370 ml Output Net 370 ml Physical Exam: Physical Exam Constitutional: She appears well-developed and well-nourished. LABS/IMAGING - reviewed, pertinent results as below: ASSESSMENT/PLAN Will Zack Hodge is a 78 year old female admitted to the hospital with: Acute Hypercapnic Respiratory Failure, resolved Toxic Metabolic Encephalopathy- resolving Dementia Seizure Thrombocytopenia Patient's breathing status and mental status much improved from before when she was transferred to ICU. Will continue to monitor acute change in breathing or mental status. - CT: no intracranial abnormality - Neuro following patient - Mental status gradually improving ESRD (newly declared, TThSat) Paroxymal A.Fib w/ RVR, resolved HFpEF HTN Hypoglycemia 2/2 Chronic Prednisone use leading to AI - discuss with nephrology on final discharge recs. - lopressor 25 mg BID - cortef 50 mg Q8h. Can transition to home Prednisone 10 mg daily in AM. - calcitriol 0.5 mcg - midline in AM. Grade D Esophagitis Duodenal Erosions Melena, resolved - h/h daily - PPI PAIN: Controlled Tylenol Prophylaxis: DVT- heparin Stress Ulcer: pantoprazole Code Status: addressed: LORETTA Franklin M.D. Department of Internal Medicine PGY1, [facility] Team Pager's Number: [phone] END OF DAILY PROGRESS NOTE HOSPITAL COURSE Brandon Hodge is a 78 y.o female with PMH of ESRD (newly declared),CHFpEF,HTN , RA, gout and dementia who presents as a transfer from [facility] due to concerns of HITand acute hypoxic respiratory failureinitially. Patient had hematology evaluate her due to concerns of HIT, however HIT antibody was negative on ARUP. She was being managed on the floor when she had sudden drop of Hgb with reports of melena overnight. During dialysis, she suffered a witness "seizure" and Rapid was called. Neurology was consulted and followed patient. EEG was negative for seizures. Nephro thinks it is a dialyzer reaction. With stability, she returned to the floor. When patient returned, she found to be delerious and non-commumicative. She had an episode of melena with repeat Hgb dropping to 5.6 , putting her back to MICU. GI was consulted and ppi gtt was started. 3 units of pRBC transfused. Grade D esophagitis seen on EGD. With stability, nephro was consulted for HD scheduling. She was transferred back to floor. We monitor patients condition and wait for possible SNF placement for this patient after dialysis on 05/05/19. At HD on 05/05, she developed hypotension and chill, terminating the session. Discharge Planning: - CURRENT MEDICATIONS - reviewed. Current Facility-Administered Medications Medication Dose Route Frequency Last Rate Last Dose hydrocortisone (CORTEF) tablet 20 mg 20 mg Oral QPM 20 mg at 05/04/19 1759 hydrocortisone (CORTEF) tablet 40 mg 40 mg Oral QAM heparin injection 5,000 Units 5,000 Units Subcutaneous Q12H Stopped at 0800 lidocaine 1% (PF) (XYLOCAINE) injection 5 mL 5 mL Subcutaneous PRN NaCl 0.9% (NS) injection 10 mL 10 mL Slow IV Push PRN metoprolol tartrate (LOPRESSOR) tablet 25 mg 25 mg Oral BID 25 mg at 2113 omeprazole (PRILOSEC) capsule 40 mg 40 mg Oral BID 40 mg at 05/04/192113 Polyethylene Glycol 3350 (MIRALAX) powder 17 g 17 g Oral BID 17 g at 2113 glucagon (GLUCAGEN DIAGNOSTIC KIT) injection 1 mg 1 mg Intramuscular PRN 1 mg at 04/20/19 1154 calcitriol (ROCALTROL) capsule 0.5 mcg 0.5 mcg Oral DAILY 0.5 mcg at 100 foLIC acid (FOLATE) tablet 1 mg 1 mg Oral DAILY AT 1700 1 mg at 05/04/19 175 magnesium oxide (MAG-OX 400) tablet 400 mg 400 mg Oral BID 400 mg at 2113 multivitamin tablet 1 tablet 1 tablet Oral DAILY 1 tablet at 05/04/19 100 traMADOL (ULTRAM) tablet 50 mg 50 mg Oral BIDPRN 50 mg at 05/02/19 0929 docusate (COLACE) capsule 100 mg 100 mg Oral BID 100 mg at 05/04/192113 ondansetron (ZOFRAN (PF)) injection 4 mg 4 mg Slow IV Push Q6HPRN 4 mg at 05/01/19 0607 Associated attestation - Olivier Hansen - 05/05/2019 9:21 PM CDTI personally examined the patient on 05/05/2019 and agree with the note by Dr. FRANKLIN , on 05/05/2019 as written. I actively participated in the decision-making process. Please see the resident's note foradditional details. Lali Hernández, MARY GRACE - 05/04/2019 11:52 AM CDTCare Management Note CM called [place] [phone] at [phone], notified patient to discharge from [facility] 05/05/2019. CM called [facility] [phone] with updated clinicals-spoke with Emily silver auth only lasted 8 days today. CM sent patient info yesterday will resend today for auth. Katlyn Hernández RN, BSN Manager Medicaid Poppy Monte MD - 05/04/2019 10:46 AM CDT [facility] Progress Note Date of Service: 05/04/2019 10:47 Chief Complaint: AMS 24-HOUR EVENTS: - VSS -afebrile - dialysis is scheduled for tomorrow -possible discharge to SNF on SUBJECTIVE: - Patient doesn't appear to be in acute distress; No active complains. PHYSICAL EXAM: Temp: [36.2 C (97.2 F)-37.7 C (99.8 F)] Heart Rate (monitor): [76-86] Pulse: [65-96] Resp: [12-25] BP: (105-146)/(49-98) MAP (mmHg): [88-102] Intake/Output Summary (Last 24 hours) at 05/04/2019 1047 Last data filed at 05/04/2019 0600 Gross per 24 hour Intake 100 ml Output 1500 ml Net -1400 ml General: no apparent distress HEENT: pupils equal, round, reactive to light; extraocular movements intact; oropharynx clear; moistmucous membranes Lungs: clear to auscultation bilaterally Cardio: S1, S2 normal; no murmurs, rubs or gallops Abdomen: soft; non-tender; non-distended; normoactive bowel sounds Extremities: no clubbing, cyanosis, or edema Skin: no rashes. Trauma cath in Left IJ and HD catheter Neuro: no focal deficits LABS/IMAGING - reviewed, pertinent results as below: Reviewed. ASSESSMENT/PLAN Will Zack Hodge is a 78 year old female admitted to the hospital with: Acute Hypercapnic Respiratory Failure, resolved Toxic Metabolic Encephalopathy- resolving Dementia Seizure Thrombocytopenia Patient's breathing status and mental status much improved from before when she was transferred to ICU. Will continue to monitor acute change in breathing or mental status. - MRI pending - Discuss results with Neurology regarding MRI ESRD (newly declared, TThSat) Paroxymal A.Fib w/ RVR, resolved HFpEF HTN Hypoglycemia 2/2 Chronic Prednisone use leading to AI - discuss with nephrology on final discharge recs. - lopressor 25 mg BID - cortef 50 mg Q8h. Can transition to home Prednisone 10 mg daily in AM. - calcitriol 0.5 mcg - midline in AM. Grade D Esophagitis Duodenal Erosions Melena, resolved - h/h daily - PPI PAIN: Controlled Tylenol Prophylaxis: DVT- heparin Stress Ulcer: pantoprazole Code Status: addressed: FULL Disposition Anticipated Discharge Date : 05/06/19 Barriers to Discharge: LEONOR Banks MD PGY-1, Neurology [place] Team Pager #[phone] END OF DAILY PROGRESS NOTE HOSPITAL COURSE Will Ayesha is a 78 y.o female with PMH of ESRD (newly declared),CHFpEF,HTN , RA, gout and dementia who presents as a transfer from [facility] due to concerns of HITand acute hypoxic respiratory failureinitially. Patient had hematology evaluate her due to concerns of HIT, however HIT antibody was negative on ARUP. She was being managed on the floor when she had sudden drop of Hgb with reports of melena overnight. During dialysis, she suffered a witness seizured and rapid was called. Neurology was consulted and EEG and CT head was ordered for further evaluation. When patient returned, she found to be delerious and non- commumicative. She also had another episdoe of melena with repeat Hgb dropping to5.6. GI was consulted and ppi gtt was started. She was transferred to MICU for further care. 2 units of pRBC transfused. Grade D esophagitis seen on EGD. EEG was negative for seizures. Nephro consultfor HD scheduling. Finished her HD today, Patient is hemodynamically stable and can be transferred to the floor. We monitor patients condition and wait for possible SNF placement for this patient afterdialysis on 05/05/19. CURRENT MEDICATIONS - reviewed. Current Facility-Administered Medications Medication Dose Route Frequency Last Rate Last Dose hydrocortisone (CORTEF) tablet 20 mg 20 mg Oral QPM [START ON 05/05/2019] hydrocortisone (CORTEF) tablet 40 mg 40 mg Oral QAM heparin injection 5,000 Units 5,000 Units Subcutaneous Q12H Stopped at 0800 lidocaine 1% (PF) (XYLOCAINE) injection 5 mL 5 mL Subcutaneous PRN NaCl 0.9% (NS) injection 10 mL 10 mL Slow IV Push PRN metoprolol tartrate (LOPRESSOR) tablet 25 mg 25 mg Oral BID 25 mg at 0805 omeprazole (PRILOSEC) capsule 40 mg 40 mg Oral BID 40 mg at 05/04/19 0805 Polyethylene Glycol 3350 (MIRALAX) powder 17 g 17 g Oral BID 17 g at 0805 glucagon (GLUCAGEN DIAGNOSTIC KIT) injection 1 mg 1 mg Intramuscular PRN 1 mg at 04/20/19 1154 calcitriol (ROCALTROL) capsule 0.5 mcg 0.5 mcg Oral DAILY 0.5 mcg at 1003 foLIC acid (FOLATE) tablet 1 mg 1 mg Oral DAILY AT 1700 1 mg at 05/03/19 1630 magnesium oxide (MAG-OX 400) tablet 400 mg 400 mg Oral BID 400 mg at 0805 multivitamin tablet 1 tablet 1 tablet Oral DAILY 1 tablet at 05/04/19 1003 traMADOL (ULTRAM) tablet 50 mg 50 mg Oral BIDPRN 50 mg at 05/02/19 0929 docusate (COLACE) capsule 100 mg 100 mg Oral BID 100 mg at 05/04/19 0805 ondansetron (ZOFRAN (PF)) injection 4 mg 4 mg Slow IV Push Q6HPRN 4 mg at 05/01/19 0607 Associated attestation - Olivier Hansen - 05/05/2019 9:23 AM CDTI personally examined the patient on 05/04/2019 and agree with the note by Dr. BANKS, on 05/04/2019as written. I actively participated in the decision- making process. Please see the resident's notefor additional details. Trung Almendarez MD - 05/03/2019 6:09 PM CDT [facility] Progress Note Date of Service: 05/03/2019 18:09 Chief Complaint: AMS 24-HOUR EVENTS: - s/p HD 3.0 hours. NET UF: 1000 mL. - midline placement for tomorrow SUBJECTIVE: - She has no complaints. States that room is chilly but was looking forward to seeing her daughter this evening. PHYSICAL EXAM: Temp: [36.2 C (97.2 F)-36.7 C (98.1 F)] Heart Rate (monitor): [55-86] Pulse: [55-94] Resp: [10-25] BP: (87-145)/(41-98) MAP (mmHg): [64-102] Intake/Output Summary (Last 24 hours) at 05/03/2019 1809 Last data filed at 05/03/2019 1426 Gross per 24 hour Intake 580 ml Output 1500 ml Net -920 ml General: no apparent distress HEENT: pupils equal, round, reactive to light; extraocular movements intact; oropharynx clear; moistmucous membranes Lungs: clear to auscultation bilaterally Cardio: S1, S2 normal; no murmurs, rubs or gallops Abdomen: soft; non-tender; non-distended; normoactive bowel sounds Extremities: no clubbing, cyanosis, or edema Skin: no rashes. Trauma cath in Left IJ and HD catheter Neuro: no focal deficits LABS/IMAGING - reviewed, pertinent results as below: Reviewed. ASSESSMENT/PLAN Will Zack Hodge is a 78 year old female admitted to the hospital with: Acute Hypercapnic Respiratory Failure, resolved Toxic Metabolic Encephalopathy- resolving Dementia Seizure Thrombocytopenia Patient's breathing status and mental status much improved from before when she was transferred to ICU. Will continue to monitor acute change in breathing or mental status. - MRI pending - Discuss results with Neurology regarding MRI ESRD (newly declared, TThSat) Paroxymal A.Fib w/ RVR, resolved HFpEF HTN Hypoglycemia 2/2 Chronic Prednisone use leading to AI - discuss with nephrology on final discharge recs. - lopressor 25 mg BID - cortef 50 mg Q8h. Can transition to home Prednisone 10 mg daily in AM. - calcitriol 0.5 mcg - midline in AM. Grade D Esophagitis Duodenal Erosions Melena, resolved - h/h daily - PPI PAIN: Controlled Tylenol Prophylaxis: DVT- heparin Stress Ulcer: pantoprazole Code Status: addressed: FULL Disposition Anticipated Discharge Date : 05/06/19 Barriers to Discharge: LEONOR Almendarez MD Internal Medicine PGY-2 [place] Team #[id number] END OF DAILY PROGRESS NOTE HOSPITAL COURSE Brandon Cohens is a 78 y.o female with PMH of ESRD (newly declared),CHFpEF,HTN , RA, gout and dementia who presents as a transfer from [facility] due to concerns of HITand acute hypoxic respiratory failureinitially. Patient had hematology evaluate her due to concerns of HIT, however HIT antibody was negative on ARUP. She was being managed on the floor when she had sudden drop of Hgb with reports of melena overnight. During dialysis, she suffered a witness seizured and rapid was called. Neurology was consulted and EEG and CT head was ordered for further evaluation. When patient returned, she found to be delerious and non- commumicative. She also had another episdoe of melena with repeat Hgb dropping to5.6. GI was consulted and ppi gtt was started. She was transferred to MICU for further care. 2 units of pRBC transfused. Grade D esophagitis seen on EGD. EEG was negative for seizures. Nephro consultfor HD scheduling. Finished her HD today, Patient is hemodynamically stable and can be transferred to the floor. CURRENT MEDICATIONS - reviewed. Current Facility-Administered Medications Medication Dose Route Frequency Last Rate Last Dose heparin 1,000 unit/mL injection 1,500 Units 1,500 Units Slow IV Push DIALYSIS ONCE - PT ROOM Followed by heparin 1,000 unit/mL injection 1,500 Units 1,500 Units Slow IV Push DIALYSIS ONCE - PT ROOM heparin 1,000 unit/mL injection 5,000 Units 5,000 Units Slow IV Push DIALYSIS ONCE - [place] DSU heparin injection 5,000 Units 5,000 Units Subcutaneous Q12H lidocaine 1% (PF) (XYLOCAINE) injection 5 mL 5 mL Subcutaneous PRN NaCl 0.9% (NS) injection 10 mL 10 mL Slow IV Push PRN metoprolol tartrate (LOPRESSOR) tablet 25 mg 25 mg Oral BID Stopped at 1999 omeprazole (PRILOSEC) capsule 40 mg 40 mg Oral BID 40 mg at 05/03/19 0742 Polyethylene Glycol 3350 (MIRALAX) powder 17 g 17 g Oral BID 17 g at 0742 hydrocortisone sod succ (CORTEF) 50 mg in NaCl 0.9% (NS) piggyback 50 mg IV Piggyback Q8H 50 mg at 05/03/19 1523 glucagon (GLUCAGEN DIAGNOSTIC KIT) injection 1 mg 1 mg Intramuscular PRN 1 mg at 04/20/19 1154 calcitriol (ROCALTROL) capsule 0.5 mcg 0.5 mcg Oral DAILY 0.5 mcg at 0742 foLIC acid (FOLATE) tablet 1 mg 1 mg Oral DAILY AT 1700 1 mg at 05/03/19 1630 magnesium oxide (MAG-OX 400) tablet 400 mg 400 mg Oral BID 400 mg at 0742 multivitamin tablet 1 tablet 1 tablet Oral DAILY 1 tablet at 05/03/19 0742 traMADOL (ULTRAM) tablet 50 mg 50 mg Oral BIDPRN 50 mg at 05/02/19 0929 docusate (COLACE) capsule 100 mg 100 mg Oral BID 100 mg at 05/03/19 0742 ondansetron (ZOFRAN (PF)) injection 4 mg 4 mg Slow IV Push Q6HPRN 4 mg at 05/01/19 0607 Mark Bright OT - 05/03/2019 2:35 PM CDT05/03/2019 OCCUPATIONAL THERAPY NOTE: Attempted to see patient in AM however patient currently receiving HD per RN report. Jacobo ROACH/L Pager [phone] Supervising OTR Beverly Pimentel Leslie Spears PTA - 05/03/2019 2:16 PM CDTPTA NOTE: Attempted to see patient in AM however patient currently receiving HD per RN report. Will check back later for PT as time permits. Will notify Supervising PT with patient current status. Leslie Dodson PTA Supervising PT Kyrie Galvan Mamadou Gupta MBBS - 05/03/2019 1:49 PM CDT Brief MICU Note/ Transfer Note Date: 05/03/2019 13:49 ICU day: 6 Intubation Day: n/a Code Status: full 12 Hour Events: - HD done today - no active issues Plan for next 12 hours: - ready for TTF Mamadou LOPEZ PGY-1 IM/Neurology Pager # [phone] Hospital course Brandon Hodge is a 78 y.o female with PMH of ESRD (newly declared),CHFpEF,HTN , RA, gout and dementia who presents as a transfer from [facility] due to concerns of HITand acute hypotix respoirtory failureinitially. 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 She was being managed on the floor when she had sudden drop of Hgb with reports of melena overnight. During dialysis, she suffered a witness seizured and rapid was called. Neurology was consulted and EEG and CT head was ordered for further evaluation. When patient returned, she found madison delerious and non- commumicative. She also had another episdoe of melena with repeat Hgb dropping to 5.6. GI was consulted and ppi gtt was started. She was transferred to MICU for further care. 2 unites of pRBC where given. Grade D esophagitis seen on EGD. EEG was negative for seizures. Nephro consult for HD scheduling. Finished her HD today, Patient is hemodynamically stable, 100% on room temperature, no active issues. Ready for TTF. CCAKerZunilda elias SLP - 05/03/2019 1:31 PM CDTSPEECH LANGUAGE PATHOLOGY Daily Progress Note 05/03/2019 [id number] Name: Brandon Hodge : 1940 Age: [age] year old Sex: female SUBJECTIVE: Pt was in bed and alert but confused. Pt states she is eating fine. OBJECTIVE: Brandon Hodge is a 78 year old female admitted for AMS with PMH significant for advanced dementia, newly declared ESRD, CHF, CKD, HTN, Gout, RA. Pt had a change in status with possible seizure activity and was sent to ICU. Pt has improved and is ready to transfer to the floor. Most recent chest Xray on this date indicated the lungs were clear. Pt is afebrile. Progress on short term goals was as follows: - Patient will tolerate the safest, least restricted po diet texture without overt s/sx of aspiration or other negative effects on medical condition. Pt tolerated multiple bites of purees, mechanical soft, and multiple sips (single and sequential) of thin liquids with no coughing, choking, or other s/sx of aspiration. (goal met) - Patient will demonstrate adherence to swallowing precautions with minimal cues 80% of the time. Ptwas positioned upright and fed with LINER INSERTER at bedside. Pt ate slowly and alternated solids and liquids well. (goal met) - Family will participate in education regarding anatomy/physiology of the swallow and Pt's plan of care. Not addressed on this date. ASSESSMENT: Will Zack Hodge made good progress on goals as detailed above. Pt presented with subjectively timely oral stage. She continues to present with mild pharyngeal dysphagia characterized by subjectively reduced laryngeal elevation, however, tolerated all bolus trials with no s/sx of aspiration (Note: aspiration cannot be ruled out nor confirmed without objective assessment / imaging.) Pt appears to tolerate upgrade diet with swallowing precautions as detailed below. She would benefit from follow-up by [facility]ER INSERTER to assess diet tolerance at DC location. PLAN: 1. Recommend Pt continue mechanical-soft textured diet with thin liquids and swallow precautions: sit fully uptight/chair, small single sips/bites, remain upright for 30 minutes after meals. May need assistance at meals. 2. Recommend follow up with [facility]ER [facility]TER at DC location in fpc for potential for diet advancement. Zunilda Palmer M.S., [facility] Speech Language Pathologist Pager: [phone] Office:[phone] olfAna Maria LBSW - 05/03/2019 12:09 PM CDTSocial Work Note 05/03/2019 12:10 PM CORI called and left a message for Fidel Machado dtr [phone] and requested a call back to discussd/c planning recommendations. Update 12:15pm CORI received verbal preference from dtcurt that patient be discharged to [facility] [address] [place] [address] and fax [phone]. Admissions office is Emily. Emily confirmed they can transport patient to [place] [address] [facility] [phone], F : [phone]. CORI contacted Tracey at [facility] and relayed pending d/c planning. SW faxed updated dialysis serology needed lab results. Choice note completed per dtr's verbal consent and confirmation of discharge planning preferences. Referral faxed KACY Omalley Miniature Model Maker/Care Management Office [phone] binduEstefanía fonseca Evan - 05/03/2019 11:40 AM CDT MEDICAL NUTRITION THERAPY - Follow Up I have reviewed the comprehensive progress notes dated today as well as additional physician and allied health provider notes and EPIC information for an understanding of the patient's current medical condition and plans for further treatment and care. 78 year old female with PMH of ESRD (newly declared),CHFpEF,HTN, RA, gout and dementia who presents as a transfer from [facility] due to concerns of HITand acute hypotix respoirtory failure initially. 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 She was being managed on the floor when she had sudden drop of Hgb with reports of melena overnight. During dialysis, she suffered a witness seizured and rapid was called. Neurology was consulted andEEG and CT head was ordered for further evaluation. When patient returned, she found to be deleriousand non- commumicative. She also had another episdoe of melena with repeat Hgb dropping to 5.6. GI was consulted and ppi gtt was started. She was transferred to MICU for further care. 1 unit was ordered and being transfused with 2nd unit ordered for after. Grade D esophagitis seen on EGD. EEG was negative for seizures. Pending brain MRI. Deemed stable for TTF per Dr. Fairchild's note on 05/03. Diet Order: (05/02) Renal II (2 gm Na, 2 gm K, 60 gm protein, 900 mg phosphorus) , Mechanical Soft texture diet; (04/20) Nepro Vanilla BID; (04/20) Ensure Enlive Chocolate ONCE daily Documented Food Allergies/Intolerance/Cultural Preferences: None GI and Nutrition Related Findings: Pt minimally conversant and confused during visit. Pt states sheis eating well and denies N/V/D/C at this time. Pt reports she likes vanilla oral supplements. None observed in patient's room. Nurse states she fed patient breakfast and she ate ~50% of her meal. She has not given any Nepro but reports she will offer some today. PO intake: variable intake of meals per nursing documentation, 0-100% (patient refusing some) +BM 05/03 UOP anuric CVVHD discontinued 05/01, patient receiving HD during visit General: Edema: 1+ generalized, 2+ TABATHA leg, foot Wounds: + sx wound R chest; Stage II mid sacrum; Stage II posterior knee Pertinent Medications: Noted. Includes: Calcitriol, Colace BID, Folate, Mag Ox BID, MVi, Prilosec, IV Zofran PRN, Miralax BID, Prednisone, IV K acetate 40 mEq (05/01) Labs and Medical Test Results: Reviewed. Results for BRANDON HODGE ( ) as of 05/03/2019 09:40 05/01/2019 03:17 05/02/2019 04:11 05/03/2019 05:14 05/03/2019 07:42 NA 135 133 (L) 131 (L) K 3.3 (L) 4.7 4.8 CL 98 103 101 CO2 TOTAL 28 28 29 AGAP 9 2 1 (L) BUN 25 (H) 39 (H) 44 (H) GLUCOSE 108 98 105 CREATININE 1.69 (H) 2.35 (H) 2.68 (H) eGFR CALCULATION () 35.5 24.2 20.8 CALCIUM 8.4 (L) 7.9 (L) 7.9 (L) PHOSPHORUS 2.4 (L) 2.5 2.5 MAGNESIUM 2.1 2.4 2.4 Anthropometrics: Height: 5' 3" Weight: 207.2 lbs (94 kg) Body mass index is 36.71 kg/m. IBW: 140.5 lbs (63.7 kg) at BMI 24.9 kg/m^2 %IBW: 148% UBW: unknown Admit Weight: 280 lbs (127 kg) NUTRITION DIAGNOSIS: 1) Inadequate protein-energy intake related to decreased ability to consume sufficient protein and/or energy as evidenced by PO intake meeting 50% or less of estimated needs for the past 7+ days. NUTRITION INTERVENTIONS: 1) Recommend Regular diet, mechanical soft texture, to promote PO intake as tolerated. - Renal diet appears unnecessary at this time as K, Phos WNL and patient with poor intake. 2) Encourage intake of ONS TID (e.g. 2 Vanilla Nepro and 1 Chocolate Ensure Enlive daily). - Discussed with nurse who states she will offer supplements today. 3) Please discontinue regular Multivitamin - fat soluble vitamin supplementation not recommended in ESRD patients (Vit A can accumulate). Suggest NephroVite once daily. Goal(s): 1) The patient will be able to consume 75% of all meals without any intolerances during this admission. MONITORING/EVALUATION: - RD to continue following with Nephrology team to review pt's progress, report nutrition related information, and to revise the recommended nutrition intervention(s) if necessary; please call with questions or concerns Anticipated Discharge Needs: None identified at this time. Estefanía Black, MS, RD, BLUEPRINT MACHINE OPERATOR, LD Nephrology Dietitian Pager: [phone] signed by Estefanía Black at 05/03/2019 1: 35 PM Olivier Trejo MD - 05/03/2019 12:29 AM CDT MICU Progress/transfer Note Date of Service: 05/03/2019 00:29 Reason for ICU admission: melena ICU Day: 6 Intubation Day: n/a Code Status: full code Last 24 hour events (major events): -nephro planning on HD today Subjective: No events overnight. Patient without significantcomplaints Intake/Output: Intake/Output Summary (Last 24 hours) at 05/03/2019 0029 Last data filed at 05/02/2019 2200 Gross per 24 hour Intake 531 ml Output 0 ml Net 531 ml Physical Exam: Temp: [36 C (96.8 F)-36.3 C (97.4 F)] Heart Rate (monitor): [55-80] Pulse: [53-83] Resp: [9-19] BP: (80-151)/(25-99) MAP (mmHg): [46-111] Constitutional: comfortable and in no acute distress, AAO x2 EENT: no scleral icterus, no conjunctival pallor Cardiovascular: RRR Respiratory: non-labored Gastrointestinal: Abdomen is soft, non-distended, non-tender. MSK: MAEW Skin: no rash Neurologic: grossly non-focal but altered. Psychiatric: normal affect Labs (pertinent only)/Imaging: Am labs pending Assessment/Plan: Brandon Hodge is a 78 year old female admitted with acute GI bleed and transient hypotension Neuro Dementia Seizures Possible stroke Possible uremic encephalopathy-unlikely Patient mentation appears improved from initial assessment. Still pending MRI -pending MRI -discuss results with neuro Resp H/x hypercapnic respiratory failure -monitor CardiovascularParoxymal A.Fib w/ RVR, resolved HFpEF HTN Stable. No acute issues -restarted lopressor 25mg BID FEN/GIGrade D esophagitis Duodenal erosionsMelena Grade D esophagitis seen on EGD. No further bleeding. C/w PPI -h/h -ppi ID Monitor for infection Renal ESRD -coordinate with nephro Endo Chronic steroid use Adrenal infuffeciecny -on stress dose steriods. De esclate after transfer HEME: DIC vs HIT Unlikely -monitor Other Gout RA Complaining of hand pain. Currently on stress dose steroids. Can consider nsaids and colchicine -monitor -treat symptomatically DVT prophylaxis: bleeding Lines/Catheters: See rounding report Dispo: Prognosis: guarded Code Status: full Olivier Fairchild MD Hospital course Brandon Hodge is a 78 y.o female with PMH of ESRD (newly declared),CHFpEF,HTN , RA, gout and dementia who presents as a transfer from [facility] due to concerns of HIT and acute hypotix respoirtory failure initially. 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 She was being managed on the floor when she had sudden drop of Hgb with reports of melena overnight. During dialysis, she suffered a witness seizured and rapid was called. Neurology was consulted and EEG and CT head was ordered for further evaluation. When patient returned, she found to be delerious and non -commumicative. She also had another episdoe of melena with repeat Hgb dropping to 5.6. GI was consulted and ppi gtt was started. She was transferred to MICU for further care. 1 unit was ordered and being transfused with 2nd unit ordered for after. Grade D esophagitis seen on EGD. EEG was negative for seizures. Pending brain MRI. Deemed stable for TTF Associated attestation - Edouard Joe Jeffers - 05/03/2019 2:30 PM CDTAttending History Supplement: I personally examined the patient on 05/03/[address] Fairchild's resident note as written. I actively participated in the decision- making process. Please see the resident's note for additional details. No further GI blood loss. To be initiated on hemodialysis using different dialysis membrane given concerns for allergic reaction resulting in hypotension. Appreciate nephrology consult.Mamadou Tripp MBBS - 05/02/2019 5:09 PM CDT Brief MICU Note Date: 05/02/2019 17:12 ICU day: 5 Intubation Day: n/a Code Status: cpr 12 Hour Events: - no issues during day - nephro have seen her and wanted to keep her on schedule for HD tomorrow Plan for next 12 hours: - F/u blood pressure reading - f/u cbc/ bmp - consult with nephro for HD tomorow - for TTF tomorow JOHN Head Hospital course Will Ayesha is a 78 y.o female with PMH of ESRD (newly declared),CHFpEF,HTN , RA, gout and dementia who presents as a transfer from [facility] due to concerns of HITand acute hypotix respoirtory failureinitially. 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 She was being managed on the floor when she had sudden drop of Hgb with reports of melena overnight. During dialysis, she suffered a witness seizured and rapid was called. Neurology was consulted and EEG and CT head was ordered for further evaluation. When patient returned, she found madison delerious and non- commumicative. She also had another episdoe of melena with repeat Hgb dropping to 5.6. GI was consulted and ppi gtt was started. She was transferred to MICU for further care. 1 unit was ordered and being transfused with 2nd unit ordered for after. Grade D esophagitis seen on EGD. EEG was negative for seizures. Pending brain MRI. Mendel luceroip, PT - 05/02/2019 4:11 PM CDTPatient agreeable to PT. Patient met Supine with HOB elevated ~30 degrees. PHYSICAL THERAPY RE-EVALUATION Discharge Recommendations: -Primary Discharge Plan: [facility] facility Equipment recommendations: defer to facility Current Functional Status and/or Treatment:Functional mobility training, Patient /Family/Caregiver education and Therapeutic exercise Baseline vitals: JX=545/70, HR=59, ElJ1=931% on room air Bed Mobility: - Supine to sit Dependent - Sit to supine Dependent - Scooting to edge of bed Dependent. Utilized a draw sheet to facilitate scooting forward to EOB Sitting balance is fair. Patient with unsupported sitting. Pt tolerated sitting EOB approx 10 minbefore onset of fatigue and request to return to supine. Pt rolling side/side with total assist for repositioning of linens. Transfers: -deferred. Ambulation: deferred Weight Bearing: WBAT Gait Pattern: deferred. Stairs: NT Therapeutic exercise: Patient instructed in the following: ankle pumps, heel slides, hip abduction/adduction, short arc quads. Performed A/AAROM B LE x 10 reps each. Hip and knee flexion limited by body habitus. Post-exercise vitals: QH=696/73, HR=64, SpO2=99% After session, patient Supine with HOB elevated ~30 degrees. Call button provided. PLAN OF CARE: At least 2 times per week, once or twice a day (while in hospital ) per patient's tolerance and medical needs. PT Diagnosis: Weakness Hospital Diagnosis: UREMIA ALTERED MENTAL STATUS Reason for reassessment: s/p seizure activity and drop in hemoglobin on 04/28/19 with transfer back to ICU. Weight Bearing Precaution: WBAT General Precautions: General, Fall, Lines/Tubes, Cardiac and Pulmonary, IV , oxygen: Room air Bracing/Cast present or required:N/A SUBJECTIVE: I'm better and ready to sit up PAIN: denies painOBJECTIVE: Cognition: Oriented to: person however unsure of location, day or date Awake: Yes Alert: Yes Follows Commands: Yes 1-Step Yes Multi-Step Yes Inconsistent: No however motor response is often delayed NEUROLOGICAL Light Touch: appears intact B LE Heel to [place]: unable due to LE weakness and body habitus BALANCE: Sitting: Static: Fair Dynamic: NT Standing: Static: NT Dynamic: NT RANGE OF MOTION: A/AAROM B LE WFL however hip and knee flexion limited due to body habitus STRENGTH: Grossly assessed at fair (3/5) B quads and good minus (4-/5) TA and EHL ENDURANCE: Poor+ Room air PROBLEM LIST: Decline in bed mobility, Decline in gait, Decline in transfers, Decreased strength, Decreased endurance and Decreased balance ASSESSMENT: Patient is a 78 year old female seen secondary to the above listed diagnosis. Patient would benefit from continued PT to address the above listed deficits to maximize independence and safety with functional mobility. Rehabilitation Potential: fair Goals: The following goals are to maximize independence and safety with functional mobility to eventually return to prior living situation and prior functional status. Upon discharge, patient and/or family will demonstrate the followin - - Supine to sit Maximal assist - Sit to supine Maximal assist - Scooting to edge of bed Maximal assist 2 - -Sit to stand Maximal assist using Rolling Walker -Stand to sit Maximal assist using Rolling Walker 3 - Demonstrate or verbalize understanding of home exercise program in order to continue with their rehab on their own. Treatment Plan: Therapeutic exercise, Transfer training, Balance training, Bed mobility training, Equipment needs assessment and Safety education, patient/ caregiver education Patient provided with preferred teaching of verbal information on LE exercise and importance of early mobility training. Shows readiness to learn. Verbal instruction teaching provided. Individual needsreinforcement of teaching. Total Time Tx Codes in Minutes: 25 min Total Treatment Time in Minutes: 45 [place] [id number] Pg [phone] Dept [id number] Reggie Calles, [facility] - 05/02/2019 3:38 PM CDT NEPHROLOGY PROGRESS NOTE 05/02/2019 15:39 Subjective: Brandon Hodge is 78 year old female being seen in follow up by nephrology because of ESRD need dialysis, seen and examined today, No new issues CURRENT MEDICATIONS - reviewed. Current Facility-Administered Medications Medication Dose Route Frequency Last Rate Last Dose metoprolol tartrate (LOPRESSOR) tablet 25 mg 25 mg Oral BID 25 mg at 0930 CVVHD fluid (ACCUSOL [id number]) dialysate 3,500 mL 3,500 mL CRRT Circuit CONTINUOUS 3,500 mL at 05/01/19 0152 omeprazole (PRILOSEC) capsule 40 mg 40 mg Oral BID 40 mg at 05/02/19 0930 Polyethylene Glycol 3350 (MIRALAX) powder 17 g 17 g Oral BID 17 g at 0930 hydrocortisone sod succ (CORTEF) 50 mg in NaCl 0.9% (NS) piggyback 50 mg IV Piggyback Q8H 50 mg at 05/02/19 1345 glucagon (GLUCAGEN DIAGNOSTIC KIT) injection 1 mg 1 mg Intramuscular PRN 1 mg at 04/20/19 1154 calcitriol (ROCALTROL) capsule 0.5 mcg 0.5 mcg Oral DAILY 0.5 mcg at 0930 foLIC acid (FOLATE) tablet 1 mg 1 mg Oral DAILY AT 1700 1 mg at 04/30/19 1617 magnesium oxide (MAG-OX 400) tablet 400 mg 400 mg Oral BID 400 mg at 0930 multivitamin tablet 1 tablet 1 tablet Oral DAILY 1 tablet at 05/02/19 0930 traMADOL (ULTRAM) tablet 50 mg 50 mg Oral BIDPRN 50 mg at 05/02/19 0929 docusate (COLACE) capsule 100 mg 100 mg Oral BID 100 mg at 05/02/19 0929 ondansetron (ZOFRAN (PF)) injection 4 mg 4 mg Slow IV Push Q6HPRN 4 mg at 05/01/19 0607 PHYSICAL EXAM BP: (80-151)/(25-99) Temp: [36.1 C (96.9 F)-36.7 C (98 F)] Temp source: Axillary (05/02 1200) Pulse: [53-72] Resp: [8-19] SpO2: [86 %-100 %] Height: -- Weight: -- Wt Readings from Last 3 Encounters: 05/01/19 89.2 kg (196 lb 10.4 oz) General: no acute distress and alert x 1 Cardiovascular: Heart regular, rate, rhythm, no murmurs; no edema Respiratory: clear to auscultation, no respiratory distress GI: abd soft, non-tender, non-distended, +BS, no HSM Dialysis Access : Perm cath Intake/Output Summary (Last 24 hours) at 05/02/2019 1539 Last data filed at 05/02/2019 0400 Gross per 24 hour Intake 232.2 ml Output 0 ml Net 232.2 ml LABS/IMAGING - Reviewed ASSESSMENT/PLAN: - ESRD on TTS schedule - Anemia of chronic disease - MBD -Hypertension - HIT - Dementia. a 78 y.o female with PMH of ESRD (newly declared),CHFpEF,HTN, RA, gout and dementia who presents as a transfer from [facility] due to concerns of HIT, The patient has baseline dementia. - ESRD on TTS schedule - Last HD was on Thursday, we did CRRT shift therapy on Thursday. - We will do HD tomorrow and we will keep her on the schedule. - Epogen if Hgb below 10. - Binders with meals. - Blood pressure target is 130/80. - Daily BMP - Other issues per primary team. Patient seen, examined and discussed with attending lease examiner Dr. Robi Huggins Nephrology Fellow, PGY 5 Pager Number [phone] Associated attestation - Vanessa Rosenbaum MD - 05/02/2019 11:41 PM CDTI have personally seen and examined this patient with Dr. Huggins on 05/02/2019 . I have reviewed the assessment and plan as outlined in the progress note and agree with the overall approach to this patient. I personally participated in the decision-making process as relates to this patient's medical condition. Please refer to Dr. Huggins's progress note for details of the medical care provided. Patient had a questionable dialyzer reaction. Will use a different dialyzer for her next dialysis session.Zunilda Palmer, [facility] - 05/02/2019 2:50 PM CDTSPEECH LANGUAGE PATHOLOGY Daily Progress Note 05/02/2019 [id number] Name: Brandon Hodge : 1940 Age: [age] year old Sex: female SUBJECTIVE: Pt was in bed and asleep. Patient had noon meal bedside. Pt did not want to eat the food and was provided wthi a snack. OBJECTIVE: Brandon Hodge is a 78 year old female admitted for AMS with PMH significant for advanced dementia, newly declared ESRD, CHF, CKD, HTN, Gout, RA. Pt had a change in status with possible seizure activity and was sent to ICU. Pt has improved and is ready to transfer to the floor. Most recent chest Xray on this date indicated the lungs were clear. Pt is afebrile. Progress on short term goals was as follows: - Patient will tolerate the safest, least restricted po diet texture without overt s/sx of aspiration or other negative effects on medical condition. Pt tolerated multiple bites of purees, mechanical soft, and multiple sips (single and sequential) of thin liquids with no coughing, choking, or other s/sx of aspiration. (goal progressing, continue) - Patient will demonstrate adherence to swallowing precautions with minimal cues 80% of the time. Ptwas positioned upright and fed with [employer] at bedside. Pt ate slowly and alternated solids and liquids well. (goal progressing, continue ) - Family will participate in education regarding anatomy/physiology of the swallow and Pt's plan of care. Not addressed on this date. ASSESSMENT: Brandon Hodge made good progress on goals as detailed above. Pt presented with subjectively timely oral stage. She continues to present with mild pharyngeal dysphagia characterized by subjectively reduced laryngeal elevation, however, tolerated all bolus trials with no s/sx of aspiration (Note: aspiration cannot be ruled out nor confirmed without objective assessment / imaging.) Pt appears safe to upgrade diet with swallowing precautions as detailed below. She would benefit from follow-up by [facility] toassess diet tolerance. PLAN: 1. Recommend Pt advance to mechanical-soft textured diet with thin liquids and swallow precautions: sit fully uptight/chair, small single sips/bites, remain upright for 30 minutes after meals 2. Recommend [employer] therapy 1-2x/wk while in house for 15-45 min/session to address above goals. Zunilda Palmer M.S., [facility] Speech Language Pathologist Pager: [phone] Zoran Ramires MD - 05/02/2019 2:43 AM CDT MICU Progress/transfer Note Date of Service: 05/02/2019 02:43 Reason for ICU admission: melena ICU Day: 5 Intubation Day: n/a Code Status: full code Last 24 hour events (major events): No issues overnight Subjective: Pt states that she wants to sleep Intake/Output: Intake/Output Summary (Last 24 hours) at 05/02/2019 0243 Last data filed at 05/02/2019 0000 Gross per 24 hour Intake 355.2 ml Output 376 ml Net -20.8 ml Physical Exam: Temp: [36 C (96.8 F)-36.4 C (97.6 F)] Heart Rate (monitor): [58-164] Pulse: [57-92] Resp: [7-17] BP: (86-175)/(55-119) MAP (mmHg): [66-125] Constitutional: comfortable and in no acute distress, alert and oriented x1-2, EENT: no scleral icterus, no conjunctival pallor Cardiovascular: RRR Respiratory: non-labored Gastrointestinal: Abdomen is soft, non-distended, non-tender. MSK: MAEW Skin: no rash Neurologic: grossly non-focal but altered. Psychiatric: normal affect Labs (pertinent only)/Imaging: Am labs pending Assessment/Plan: Brandon Hodge is a 78 year old female admitted with acute GI bleed and transient hypotension Neuro Dementia Seizures Possible stroke Possible uremic encephalopathy Patient off of her baseline compared to admit h/p (AAOx2). EEG was negative. Pending MRI -pending MRI -discuss results with neuro Resp H/x hypercapnic respiratory failure -monitor Cardiovascular Paroxymal A.Fib w/ RVR, resolved HFpEF HTN Stable. No acute issues -restarted lopressor 25mg BID FEN/GI Grade D esophagitis Duodenal erosions Melena Grade D esophagitis seen on EGD. No further bleeding. C/w PPI -h/h -ppi ID Monitor for infection Renal ESRD -coordinate with nephro Endo Chronic steroid use Adrenal infuffeciecny -on stress dose steriods. De esclate after bleed HEME: DIC vs HIT Unlikely -monitor Other Gout RA Complaining of hand pain. Currently on stress dose steroids. Can consider nsaids and colchicine -monitor -treat symptomatically DVT prophylaxis: bleeding Lines/Catheters: See rounding report Dispo: Prognosis: guarded Code Status: full Zoran Padilla MD Hospital course Brandon Hodge is a 78 y.o female with PMH of ESRD (newly declared),CHFpEF,HTN , RA, gout and dementia who presents as a transfer from [facility] due to concerns of HIT and acute hypotix respoirtory failure initially. 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 She was being managed on the floor when she had sudden drop of Hgb with reports of melena overnight. During dialysis, she suffered a witness seizured and rapid was called. Neurology was consulted and EEG and CT head was ordered for further evaluation. When patient returned, she found to be delerious and non -commumicative. She also had another episdoe of melena with repeat Hgb dropping to 5.6. GI was consulted and ppi gtt was started. She was transferred to MICU for further care. 1 unit was ordered and being transfused with 2nd unit ordered for after. Grade D esophagitis seen on EGD. EEG was negative for seizures. Pending brain MRI. Deemed stable for TTF Associated attestation - Joe Nunn - 05/02/2019 3:38 PM CDTAttending History Supplement: I personally examined the patient on 05/02/[address] Padilla's resident note as written. I actively participated in the decision- making process. Please see the resident's note for additional details.Yesica Levy MBBS - 05/01/2019 11:36 PM CDT NEPHROLOGY PROGRESS NOTE Subjective: Brandon Hodge is 78 year old female being seen in follow up by nephrology because of ESRD needing dialysis Patient was seen in am Events reviewed She tolerated shift therapy yesterday CURRENT MEDICATIONS - reviewed. Current Facility-Administered Medications Medication Dose Route Frequency Last Rate Last Dose metoprolol tartrate (LOPRESSOR) tablet 25 mg 25 mg Oral BID 25 mg at 2052 CVVHD fluid (ACCUSOL [id number]) dialysate 3,500 mL 3,500 mL CRRT Circuit CONTINUOUS 3,500 mL at 05/01/19 0152 omeprazole (PRILOSEC) capsule 40 mg 40 mg Oral BID 40 mg at 05/01/192101 Polyethylene Glycol 3350 (MIRALAX) powder 17 g 17 g Oral BID 17 g at 2053 hydrocortisone sod succ (CORTEF) 50 mg in NaCl 0.9% (NS) piggyback 50 mg IV Piggyback Q8H 50 mg at 05/01/192158 glucagon (GLUCAGEN DIAGNOSTIC KIT) injection 1 mg 1 mg Intramuscular PRN 1 mg at 04/20/19 115 calcitriol (ROCALTROL) capsule 0.5 mcg 0.5 mcg Oral DAILY 0.5 mcg at 0849 foLIC acid (FOLATE) tablet 1 mg 1 mg Oral DAILY AT 1700 1 mg at 04/30/19 1617 magnesium oxide (MAG-OX 400) tablet 400 mg 400 mg Oral BID 400 mg at 2053 multivitamin tablet 1 tablet 1 tablet Oral DAILY 1 tablet at 05/01/19 0849 traMADOL (ULTRAM) tablet 50 mg 50 mg Oral BIDPRN 50 mg at 05/01/19 0849 docusate (COLACE) capsule 100 mg 100 mg Oral BID 100 mg at 05/01/192053 ondansetron (ZOFRAN (PF)) injection 4 mg 4 mg Slow IV Push Q6HPRN 4 mg at 05/01/19 0607 PHYSICAL EXAM BP: (86-190)/(62-175) Temp: [36 C (96.8 F)-36.8 C (98.2 F)] Temp source: Axillary (05/01 1200) Pulse: [59-92] Resp: [7-23] SpO2: [83 %-100 %] Height: -- Weight: [89.2 kg (196 lb 10.4 oz)] Wt Readings from Last 3 Encounters: 05/01/19 89.2 kg (196 lb 10.4 oz) General: no acute distress and alert ENT: anicteric EOMI Cardiovascular: Heart regular, rate, rhythm, no murmurs; no edema Respiratory: clear to auscultation, no respiratory distress on nasal canula GI: abd soft, non-tender, non-distended, Skin: intact and warm, dry Neuro: alert, oriented Dialysis Access :tunnelled catheter Intake/Output Summary (Last 24 hours) at 05/01/2019 2336 Last data filed at 05/01/2019 1600 Gross per 24 hour Intake 245.2 ml Output 954 ml Net -708.8 ml LABS/IMAGING - reviewed, pertinent results as below: BMP NA (mmol/L) Date Value 05/01/2019 135 K (mmol/L) Date Value 05/01/2019 3.3 (L) CALCIUM (mg/dL) Date Value 05/01/2019 8.4 (L) CL (mmol/L) Date Value 05/01/2019 98 BUN (mg/dL) Date Value 05/01/2019 25 (H) CREATININE (mg/dL) Date Value 05/01/2019 1.69 (H) GLUCOSE (mg/dL) Date Value 05/01/2019 108 CO2 TOTAL (mmol/L) Date Value 05/01/2019 28 Recent Labs 04/29/19 0507 04/30/19 0849 04/30/19 1428 04/30/19182505/01/19 0036 05/01/197 NA 134* -- -- -- -- -- 135 K 3.9 -- -- -- -- -- 3.3* CL 102 -- -- -- -- -- 98 TCO2 28 -- -- -- -- -- 28 AGAP 4 -- -- -- -- -- 9 BUN 41* -- -- -- -- -- 25* CREAT 2.61* -- -- -- -- -- 1.69* CA 7.7* -- -- -- -- -- 8.4* PHOS -- -- -- -- -- -- 2.4* MCV 93.4 < > 91.2 91.2 91.1 90.1 92.4 < >=values in this interval not displayed. No results for input(s): ALB in the last 72 hours. Recent Labs 05/01/19316 MG 2.1 No results found for: VANCOT Recent Labs 05/01/19316 PHOS 2.4* No results for input(s): CK in the last 72 hours. No results for input(s): ACPH, ACPCO2, ACHCO3, ACO2HB in the last 72 hours. Recent Labs 04/30/19 0849 04/30/19 1428 04/30/191826 04/14/19 0036 05/01/19 0317 WBC 8.73 8.57 8.02 10.43 10.95 HGB 8.6* 8.8* 8.6* 9.8* 10.1* PLT 74* 79* 78* 101* 108* No results found for: PTHINTACT FERRITIN Date Value Ref Range Status 04/20/2019 340.0 (H) 11.0 - 264.0 ng/mL Final % FE SAT Date Value Ref Range Status 04/20/2019 25 20 - 50 % Final A/P 78 year old female presenting with - ESRD She had shift therapy yesterday Dialyzer reaction She will need a special dialyzer ordered with HD - Anemia of chronic disease Will dose epogen to keep hemoglobin above 10 She has h/o HIT and henok - Hypertension Controlled Hypervolemia We diuresed at 200/hr for 10 hours yesterday - Hyperparathyroidism of renal disease On calcitriol seizure during previous dialysis a few days ago Patient seen, examined and discussed with attending lease examiner Dr Jonathan LEVY PGY4 pager [phone] signed by Magy Neil MD at 05/02/2019 11:26 AM CDT Associated attestation - Magy Neil MD - 05/02/2019 11:26 AM CDTI personally examined the patient on 05/01/[address] Levy's resident note as written. Tolerated shift therapy. Will attempt to do conventional HD with a different dialyzer tomorrow. I actively participated in the decision- making process. Please see the resident's note for additional details. Magy Neil MD Pager #[phone] Tripp MBBS - 05/01/2019 5:17 PM CDT Brief MICU Note Date: 05/01/2019 17:17 ICU day: 4 Intubation Day: na Code Status: cpr 12 Hour Events: - CRRT was done yesterday, net UF; 200ml/hr ,, during the beginning of session pt had paroxysmal AF,given metoprolol 5mg IV and reduced net UF to 75ml/hr - mild hypokalemia (3.3) given KCL 40mEq - complain of flareup of RA/gout pain on both hands and elbows R>L Given cochicine 1 dose, fentanyl 25mcg 1 dose, norco 1 dose. Plan for next 12 hours : - f/u blood pressure reading - f/u cbc. Bmp - f/u head MRI as per neurology consult - TTF for tomorrow Mamadou Tripp. JOHN PGY-1 IM/Neurology Pager # [phone] Zoran Ramires MD - 05/01/2019 1:05 AM CDT MICU Progress/transfer Note Date of Service: 05/01/2019 01:05 Reason for ICU admission: melena ICU Day: 4 Intubation Day: n/a Code Status: full code Last 24 hour events (major events): - Hb 8.8 (04/30) after 2 U PRBC done - MRI scheduled - Nephro consult recommended CRRT to be done Subjective: Pt complains of right hand pain. States that it is similar to gout pain. Intake/Output: Intake/Output Summary (Last 24 hours) at 05/01/2019 0105 Last data filed at 05/01/2019 0000 Gross per 24 hour Intake 610 ml Output 561 ml Net 49 ml Physical Exam: Temp: [36.2 C (97.1 F)-36.5 C (97.7 F)] Heart Rate (monitor): [68-82] Pulse: [64-91] Resp: [9-23] BP: (120-190)/(61-175) MAP (mmHg): [80-182] Constitutional: comfortable and in no acute distress, alert and oriented x1-2, not cooperative with physical exam and interview. EENT: no scleral icterus, no conjunctival pallor Cardiovascular: RRR Respiratory: non-labored Gastrointestinal: Abdomen is soft, non-distended, non-tender. MSK: MAEW Skin: no rash Neurologic: grossly non-focal but altered. Psychiatric: normal affect Labs (pertinent only)/Imaging: Am labs pending Assessment/Plan: Brandon Hodge is a 78 year old female admitted with acute GI bleed and transient hypotension Neuro Dementia Seizures Possible stroke Possible uremic encephalopathy Patient off of her baseline compared to admit h/p (AAOx2). EEG was negative. Pending MRI -pending MRI -discuss results with neuro Resp H/x hypercapnic respiratory failure -monitor Cardiovascular Paroxymal A.Fib w/ RVR, resolved HFpEF HTN Stable. No acute issues -holding lopressor 25mg BID due to GI bleed FEN/GI Grade D esophagitis Duodenal erosions Melena Grade D esophagitis seen on EGD. No further bleeding. C/w PPI -2 large bore IV -h/h -ppi -coag labs -no htn meds ID Monitor for infection Renal ESRD -coordinate with nephro Endo Chronic steroid use Adrenal infuffeciecny -on stress dose steriods. De esclate after bleed HEME: DIC vs HIT Unlikely -monitor Other Gout RA Complaining of hand pain. Currently on stress dose steroids. Can consider nsaids and colchicine -monitor -treat symptomatically DVT prophylaxis: bleeding Lines/Catheters: See rounding report Dispo: Prognosis: guarded Code Status: full Zoran Padilla MD Hospital course Will Ayesha is a 78 y.o female with PMH of ESRD (newly declared),CHFpEF,HTN , RA, gout and dementia who presents as a transfer from [facility] due to concerns of HIT and acute hypotix respoirtory failure initially. 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 She was being managed on the floor when she had sudden drop of Hgb with reports of melena overnight. During dialysis, she suffered a witness seizured and rapid was called. Neurology was consulted and EEG and CT head was ordered for further evaluation. When patient returned, she found to be delerious and non -commumicative. She also had another episdoe of melena with repeat Hgb dropping to 5.6. GI was consulted and ppi gtt was started. She was transferred to MICU for further care. 1 unit was ordered and being transfused with 2nd unit ordered for after. Grade D esophagitis seen on EGD. EEG was negative for seizures. Pending brain MRIElectronically signed by Flakito Calvo Jr., MD at 2018 12:41 PM CDT Associated attestation - Flakito Calvo Jr., MD - 05/01/2019 12:41 PM CDTI personally examined the patient on 7/[address] Padilla's resident note as written . I actively participated in the decision-making process. Please see the resident's note for additional details. Yesica Levy MBBS - 04/30/2019 11:12 PM CDT . NEPHROLOGY PROGRESS NOTE Subjective: Brandon Hodge is 78 year old female being seen in follow up by nephrology because of ESRD needing dialysis Patient was seen in am Events reviewed Patient missed dialysis on as she was hemodynamically unstable Her hemodynamics have improved today CURRENT MEDICATIONS - reviewed. Current Facility-Administered Medications Medication Dose Route Frequency Last Rate Last Dose CVVHD fluid (ACCUSOL [id number]) dialysate 3,500 mL 3,500 mL CRRT Circuit CONTINUOUS 3,500 mL at 04/30/19 2100 omeprazole (PRILOSEC) capsule 40 mg 40 mg Oral BID 40 mg at 04/30/19 0916 Polyethylene Glycol 3350 (MIRALAX) powder 17 g 17 g Oral BID 17 g at 0917 hydrocortisone sod succ (CORTEF) 50 mg in NaCl 0.9% (NS) piggyback 50 mg IV Piggyback Q8H 50 mg at 04/30/19 2148 glucagon (GLUCAGEN DIAGNOSTIC KIT) injection 1 mg 1 mg Intramuscular PRN 1 mg at 04/20/19 1154 calcitriol (ROCALTROL) capsule 0.5 mcg 0.5 mcg Oral DAILY 0.5 mcg at 0916 foLIC acid (FOLATE) tablet 1 mg 1 mg Oral DAILY AT 1700 1 mg at 04/30/19 1617 magnesium oxide (MAG-OX 400) tablet 400 mg 400 mg Oral BID 400 mg at 0916 multivitamin tablet 1 tablet 1 tablet Oral DAILY 1 tablet at 04/30/19 0916 traMADOL (ULTRAM) tablet 50 mg 50 mg Oral BIDPRN 50 mg at 04/30/19 2201 docusate (COLACE) capsule 100 mg 100 mg Oral BID 100 mg at 04/30/19 0918 ondansetron (ZOFRAN (PF)) injection 4 mg 4 mg Slow IV Push Q6HPRN PHYSICAL EXAM BP: (120-180)/(61-84) Temp: [36.2 C (97.1 F)-36.5 C (97.7 F)] Temp source: Axillary (04/30 1600) Pulse: [64-86] Resp: [9-20] SpO2: [93 %-100 %] Height: -- Weight: [90.5 kg (199 lb 8.3 oz)-93 kg (205 lb 0.4 oz)] Wt Readings from Last 3 Encounters: 04/30/19 90.5 kg (199 lb 8.3 oz) General: resting, no distress ENT: breathing comfortably on 2L nasal cannula Cardiovascular: Heart regular, rate, rhythm, no murmurs; +2 edema Respiratory: clear to auscultation, no respiratory distress GI: abd soft, non-tender, non-distended, Skin: intact and warm, dry Neuro:alert Dialysis Access :permanent catheter Intake/Output Summary (Last 24 hours) at 04/30/2019 2313 Last data filed at 04/30/2019 2200 Gross per 24 hour Intake 600 ml Output 0 ml Net 600 ml LABS/IMAGING - reviewed, pertinent results as below: BMP NA (mmol/L) Date Value 04/29/2019 134 (L) K (mmol/L) Date Value 04/29/2019 3.9 CALCIUM (mg/dL) Date Value 04/29/2019 7.7 (L) CL (mmol/L) Date Value 04/29/2019 102 BUN (mg/dL) Date Value 04/29/2019 41 (H) CREATININE (mg/dL) Date Value 04/29/2019 2.61 (H) GLUCOSE (mg/dL) Date Value 04/29/2019 80 CO2 TOTAL (mmol/L) Date Value 04/29/2019 28 Recent Labs 04/28/19 0059 04/28/19 1451 04/28/19 1600 04/29/19 0507 04/29/19 1714 04/30/19 0345 04/30/19 0849 04/30/19 1428 04/30/19 1826 NA 132* -- 132* 135 134* -- -- -- -- -- -- K 4.2 -- 6.6* 4.3 3.9 -- -- -- -- -- -- CL 99 -- 98 103 102 -- -- -- -- -- -- TCO2 27 -- 25 29 28 -- -- -- -- -- -- AGAP 6 -- 9 3 4 -- -- -- -- -- -- BUN 41* -- 29* 38* 41* -- -- -- -- -- -- CREAT 2.84* -- 2.14* 2.36* 2.61* -- -- -- -- -- -- CA 7.9* -- 6.1* 7.8* 7.7* -- -- -- -- -- -- PHOS -- -- -- 3.0 -- -- -- -- -- -- -- MCV 98.6* < > -- 92.1 93.4 < > 94.3 92.6 91.2 91.2 91.1 < >=values in this interval not displayed. No results for input(s): ALB in the last 72 hours. Recent Labs 04/28/19 1451 04/28/19 1600 MG 2.2 2.6* No results found for: DAKSHA Recent Labs 04/28/19 1600 PHOS 3.0 CO2, ACHCO3, ACO2HB in the last 72 hours. Recent Labs 04/29/19 1714 04/30/19 0345 04/30/19 0849 04/30/19 1428 04/30/19 1826 WBC 10.59 9.10 8.73 8.57 8.02 HGB 7.7* 6.7* 8.6* 8.8* 8.6* PLT 95* 83* 74* 79* 78* No results found for: PTHINTACT FERRITIN Date Value Ref Range Status 04/20/2019 340.0 (H) 11.0 - 264.0 ng/mL Final % FE SAT Date Value Ref Range Status 04/20/2019 25 20 - 50 % Final ASSESSMENT/PLAN: - ESRD On HD ,she missed dialysis last and as we have short staff we plan to do shift therapy today Hemodynamically stable - Anemia of chronic disease - hypervolemia - Hyperparathyroidism of renal disease HIT history Plan: Shift therapy today for 10 hours with 2K bath and 200 ml UF per hour Patient seen, examined and discussed with attending lease examiner Dr Jonathan LEVY PGY4 pager [phone] signed by Magy Neil MD at 05/01/2019 11:40 AM CDT Associated attestation - Magy Neil MD - 05/01/2019 11:40 AM CDTI personally examined the patient on 04/30/[address] Levy's resident note as written. Patient with presumed dialyzer reaction. Due to staffing situation today, plan for shift therapy CRRT and monitor signs and symptoms of potential dialyzer reaction. I actively participated in the decision-making process. Please see the resident's note for additional details. Magy Neil MD Pager #[phone] Tripp MBBS - 04/30/2019 6:49 PM CDT Brief MICU Note Date: 04/30/2019 18:49 ICU day: 3 Intubation Day: N/A Code Status: full 12 Hour Events: - Hb 8.8 (04/30) after 2 U PRBC done yesterday - MRI scheduled today - Nephro consult recommended CRRT to be done today - possible TTF tomorrow Plan for next 12 hours: - f/u blood pressure reading - f/u head MRI as per neurology consult - CRRT today, if tolerated TTF for tomorrow - f/u cbc. Taylor Tripp. JOHN PGY-1 IM/Neurology Pager # [phone] oZran Ramires MD - 04/30/2019 4:24 AM CDT MICU Progress/transfer Note Date of Service: 04/30/2019 04:24 Reason for ICU admission: melena ICU Day: 3 Intubation Day: n/a Code Status: full code Last 24 hour events (major events): - EEG done, no evidence of seizure - s/p 2 U prbc - trauma cath placed - ordered MRI head, will likely need premedication - neuro signed off, will come back pending MRI read - stop IV nexium and start omeprazole 40 mg BID, GI signed off - discussed with nephro about dialysis tolerance, they will make changes Subjective: Pt states that she wants to sleep and does not want to add medications. Intake/Output: Intake/Output Summary (Last 24 hours) at 04/30/2019 0424 Last data filed at 04/29/2019 1800 Gross per 24 hour Intake 175.6 ml Output Net 175.6 ml Physical Exam: Temp: [36 C (96.8 F)-36.4 C (97.5 F)] Heart Rate (monitor): [65-83] Pulse: [62-110] Resp: [10-18] BP: (75-134)/(39-100) MAP (mmHg): [46-105] Constitutional: comfortable and in no acute distress, alert and oriented x1-2, not cooperative with physical exam and interview. EENT: no scleral icterus, no conjunctival pallor Cardiovascular: RRR Respiratory: non-labored Gastrointestinal: Abdomen is soft, non-distended, non-tender. MSK: MAEW Skin: no rash Neurologic: grossly non-focal but altered. Psychiatric: normal affect Labs (pertinent only)/Imaging: Am labs pending Assessment/Plan: Brandon Hodge is a 78 year old female admitted with acute GI bleed and transient hypotension Neuro Dementia Seizures Possible stroke Possible uremic encephalopathy Patient off of her baseline compared to admit h/p (AAOx2). EEG was negative. Pending MRI -pending MRI -discuss results with neuro Resp H/x hypercapnic respiratory failure -monitor Cardiovascular Paroxymal A.Fib w/ RVR, resolved HFpEF HTN Stable. No acute issues -holding lopressor 25mg BID due to GI bleed FEN/GI Grade D esophagitis Duodenal erosions Melena Grade D esophagitis seen on EGD. No further bleeding. C/w PPI -2 large bore IV -h/h -ppi -coag labs -no htn meds ID Monitor for infection Renal ESRD -coordinate with nephro Endo Chronic steroid use Adrenal infuffeciecny -on stress dose steriods. De esclate after bleed HEME: DIC vs HIT Unlikely -monitor OtherDVT prophylaxis: bleeding Lines/Catheters: See rounding report Dispo: Prognosis: guarded Code Status: full Zoran Padilla MD Hospital course Brandon Hodge is a 78 y.o female with PMH of ESRD (newly declared),CHFpEF,HTN , RA, gout and dementia who presents as a transfer from [facility] due to concerns of HIT and acute hypotix respoirtory failure initially. 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 She was being managed on the floor when she had sudden drop of Hgb with reports of melena overnight. During dialysis, she suffered a witness seizured and rapid was called. Neurology was consulted and EEG and CT head was ordered for further evaluation. When patient returned, she found to be delerious and non -commumicative. She also had another episdoe of melena with repeat Hgb dropping to 5.6. GI was consulted and ppi gtt was started. She was transferred to MICU for further care. 1 unit was ordered and being transfused with 2nd unit ordered for after. Grade D esophagitis seen on EGD. EEG was negative for seizures. Pending brain MRIElectronically signed by Flakito Calvo Jr., MD at 2018 11:53 AM CDT Associated attestation - Flakito Calvo Jr., MD - 04/30/2019 11:53 AM CDTI personally examined the patient on 04/[address] Padilla's resident note as written . I actively participated in the decision-making process. Please see the resident's note for additional details. Jules Linn, - 04/29/2019 4:52 PM CDT GENERAL NEUROLOGY PROGRESS NOTE DATE OF SERVICE: 04/29/2019 16:52 Day of Hospitalization: 16 CHIEF COMPLAINT: seizure 24-HOUR EVENTS: - No new seizures - Improved alertness - EEG not demonstrative of seizure activity - Hypotension SUBJECTIVE: Patient is accompanied by her daughter and granddaughter. She is more alert and oriented than yesterday. Family says that she is still below her baseline. OBJECTIVE: PHYSICAL EXAM Vitals: 04/29/19 1300 04/29/19 1400 04/29/19 1500 04/29/19 1600 BP: 103/80 112/73 104/55 130/78 Pulse: 110 75 76 84 Resp: 10 14 12 Temp: TempSrc: SpO2: Weight: Height: General: Alert and awake; Oriented to person and place. She knows that she is in [place], [place] and she can recognize that she is in a hospital. No apparent distress. Mental Status: Consciousness, attention, concentration: impaired. She appears to ponder and drift off thinking of the answer to a question she should know. Able to perform simple tasks. Speech/ Language: intact to comprehension, fluency, repetition and naming. Fund of knowledge: is poor Remote and recent memory: poor, cannot recall how many grandchildren she has Cranial Nerves: I. Not tested. II. PERRL. FOV full to confrontation. . III. IV., . Extraocular movements intact without nystagmus. V. Normal sensation in V1-3 distributions. VII. No facial droop noted. VIII. Hearing intact. IX., X. Palatal elevation and gag response present symmetrically. XI. Normal Strength of sternocleidomastoid and trapezius muscles bilaterally. XII. Tongue in midline. Motor: Tone: increased in upper extremities Bulk: normal STRENGTH Right Left Deltoid 4 4 Biceps 4 4 Triceps 4 4 Wrist extensors 4 4 Hip flexors 3 3 Knee flexors (hamstring) 3 3 Knee extensors (quadriceps) 3 3 Ankle dorsiflexors 3 3 Ankle plantar flexors 3 3 DTR's: Right Left Bicep 2+ 2+ Triceps 2+ 2+ Brachioradialis 2+ 2+ Patella 0 0 Achilles 0 0 Pathologic reflexes and signs: Chavez: absent Babinski: absent Cerebellar: Nystagmus: neg, Tremors: neg Sensory: LT: intact, temperature: intact, PP: intact Gait: RONNY HEENT: pupils equal, round, reactive to light; extraocular movements intact; oropharynx clear; moistmucous membranes Lungs: clear to auscultation bilaterally Cardio: S1, S2 normal Extremities: no cyanosis, clubbing or edema. [place] neck and boutinniere deformities in the digits of bilateral hands as well as ulnar deviations Neck: supple, no carotid bruit, no JVD MEDICATIONS Current Facility-Administered Medications Medication Dose Route Frequency Last Rate Last Dose LORazepam (ATIVAN) injection 1 mg 1 mg Slow IV Push ONCE esomeprazole (NEXIUM) 80 mg in NaCl 0.9% (NS) 100 mL IV infusion 8 mg/hr IV Infusion [id number] mL/hr at 04/29/19 1228 8 mg/hr at 04/29/19 1228 Polyethylene Glycol 3350 (MIRALAX) powder 17 g 17 g Oral BID Stopped at 04/28/191999 hydrocortisone sod succ (CORTEF) 50 mg in NaCl 0.9% (NS) piggyback 50 mg IV Piggyback Q8H 50 mg at 04/29/19 1408 glucagon (GLUCAGEN DIAGNOSTIC KIT) injection 1 mg 1 mg Intramuscular PRN 1 mg at 04/20/19 1154 calcitriol (ROCALTROL) capsule 0.5 mcg 0.5 mcg Oral DAILY Stopped at 10/06 0900 foLIC acid (FOLATE) tablet 1 mg 1 mg Oral DAILY AT 1700 Stopped at 1700 magnesium oxide (MAG-OX 400) tablet 400 mg 400 mg Oral BID Stopped at 09/06 multivitamin tablet 1 tablet 1 tablet Oral DAILY Stopped at 04/29/19 0900 traMADOL (ULTRAM) tablet 50 mg 50 mg Oral BIDPRN 50 mg at 04/27/19 2108 docusate (COLACE) capsule 100 mg 100 mg Oral BID Stopped at 04/28/191999 ondansetron (ZOFRAN (PF)) injection 4 mg 4 mg Slow IV Push Q6HPRN LABS Recent Results (from the past 24 hour(s)) BASIC METABOLIC PANEL (NA, K, CL, CO2, GLUCOSE, BUN, CREATININE, CA) Collection Time: 04/29/19 5:07 AM Result Value Ref Range NA 134 (L) 135 - 145 mmol/L K 3.9 3.5 - 5.0 mmol/L CL 102 98 - 108 mmol/L CO2 TOTAL 28 23 - 31 mmol/L AGAP 4 2 - 16 BUN 41 (H) 7 - 23 mg/dL GLUCOSE 80 70 - 110 mg/dL CREATININE 2.61 (H) 0.50 - 1.04 mg/dL CALCIUM 7.7 (L) 8.6 - 10.6 mg/dL eGFR Calculation (Non-) 17.7 mL/min/1.73m2 eGFR Calculation () 21.5 mL/min/1.73m2 PROFILE / HEMOGRAM Collection Time: 04/29/19 5:07 AM Result Value Ref Range WBC 10.78 4.30 - 11.10 10*3/L RBC 2.56 (L) 3.93 - 5.25 10*6/L HGB 7.6 (L) 11.6 - 15.0 g/dL HCT 23.9 (L) 35.7 - 45.2 % MCH 29.7 25.9 - 32.8 pg MCV 93.4 80.6 - 95.5 fL MCHC 31.8 31.6 - 35.1 g/dL PLT 85 (L) 166 - 358 10*3/L MPV 11.5 9.5 - 12.9 fL RDW-CV 19.1 (H) 12.0 - 15.5 % RDW-SD 62.4 (H) 39.0 - 49.9 fL NRBC x10^3 0.18 10*3/L NRBC/100 WBC 1.7 0.0 - 10.0 /100 WBCs IPF % 7.2 1.3 - 7.7 % PROFILE / HEMOGRAM Collection Time: 04/29/19 12:04 PM Result Value Ref Range WBC 10.20 4.30 - 11.10 10*3/L RBC 2.58 (L) 3.93 - 5.25 10*6/L HGB 7.8 (L) 11.6 - 15.0 g/dL HCT 24.0 (L) 35.7 - 45.2 % MCH 30.2 25.9 - 32.8 pg MCV 93.0 80.6 - 95.5 fL MCHC 32.5 31.6 - 35.1 g/dL PLT 92 (L) 166 - 358 10*3/L MPV 11.1 9.5 - 12.9 fL RDW-CV 19.3 (H) 12.0 - 15.5 % RDW-SD 63.2 (H) 39.0 - 49.9 fL NRBC x10^3 0.25 10*3/L NRBC/100 WBC 2.5 0.0 - 10.0 /100 WBCs IPF % 6.1 1.3 - 7.7 % RADIOLOGY Ct Head Wo Contrast Result Date: 04/28/2019 No acute intracranial abnormalities. ILaverne MD., have reviewed this study and agree with the above report. ASSESSMENT AND PLAN Will Zack Hodge is a 78 year old female with PMHx of newly declared CKD stage V, HFrEF, RA, and dementia admitted to the hospital with cc of metabolic encephalopathy, thrombocytopenia, and GI bleed who suffered a possible seizure while undergoing dialysis. Dialysis related seizure Comment: The semiology of patient's seizure as described by the dialysis nursing staff who witnessed it is most characteristic of a focal onset seizure. However, the event corresponded with an episode of hypotension while she was undergoing dialysis, and she was hyponatremic and anemic at the time. Over the past 24 hours her anemia and hyponatremia have improved considerably, while her uremia has not significantly changed. These developments in the context of a normal EEG and semiology that was not wholly indicative of a seizure cast doubt on whether she truly experienced a seizure. She is currently on tramadol PRN. This medication is known to lower the seizure threshold Plan: - MRI without contrast to complete work-up - Recommend against tramadol for analgesia - No further recommendations at this time. Please contact the neurology service if there any acute findings on the MRI -- Neurology will sign off. Thanks for this interesting consult. -- For further questions, please call Neurology on-call pager # [phone]. The case was discussed with Dr. Watts Neurology Faculty. Jules Linn DO PGY1 Internal Medicine [place] Team Pager# [phone] signed by Jeaneth Watts MD at 04/30/2019 12:28 AM CDT Associated attestation - Jeaneth Watts MD - 04/30/2019 12:28 AM CDTAttending note : I personally examined the patient on the date of service as stated above and agree with the residentassessment and plan. I actively participated in the decision-making process. Please see the resident' s note for additional details. Beverly Pimentel OT - 04/29/2019 4:32 PM CDTOT RE-EVALUATION AND PROGRESS NOTE: Patient agreeable to participate in occupational therapy. Discharge Recommendations: Primary Discharge Plan: excel vba developer acute care Equipment Recommendations: TBD as patient progresses OT Diagnosis: Impaired BADL independence, Impaired IADL independence, Weakness, Impaired self-care mobility, Decreased UE Function TABATHA and Limited joint ROM Hospital Diagnosis: UREMIA ALTERED MENTAL STATUS Reason for Reassessment: change in medical status following possible seizure during HD PLAN OF CARE: At least 2x/week Precautions: Weight bearing: NA General: Fall, O2 per NC Bracing: N/A CURRENT OCCUPATIONAL PERFORMANCE AND/OR TREATMENT: Discontinue goals from initial evaluation on 04/23/19. New goals included below due to change in medical status. Feeding: Minimal assist, to hold and drink from cup with L hand Grooming: SBA/Setup to wipe face with L hand Performed 5 reps of shoulder flexion and abduction with active assistance. Functional Mobility: NT Patient/caregiver educated on: Role of OT Patient left semireclining in bed with call feng in reach. Daughter present and grand-daughter present throughout, vital signs stable, TABATHA prevalon boots in place. Please, see full evaluation below formore detail. PAIN: Before assessment: 0/10 After assessment: 0/10 Location: NA Pain Management: NA OCCUPATIONAL ROLES/HOME ENVIRONMENT: Per family Home environment: Downstairs apartment with daughter. Transferred from SNF. Bathroom access: Yes Bathroom setup: tub/shower combo Occupation(s): Retired, enjoys reading Function prior to admission: wheelchair for community distances, max assist for dressing tasks Equipment prior to admission: Wheelchair, RW, shower bench, BSC PERFORMANCE SKILLS/FACTORS: UE Muscle Tone: bilateral WNL UE ROM: bilateral AROM WFL except noted with joint deformities in TABATHA hands. LImited wrist extension/flexion by half. Able to open and close fingers for gross grasp of objects. Requires active assistance for TABATHA shoulder flexion, R less than L upon exam UE Strength: TABATHA UE 2-/5 except Biceps: Right 3+5, Left 3+/5 Hand dominance: right Dexterity/Coordination: bilateral Fine motor skills Impaired and bilateral Gross motor skills Impaired Endurance - Sitting: Poor+ supported in bed Standing: NT Sitting Balance - Static: NT Dynamic: NT Standing Balance - Static: NT Dynamic: NT Dizziness: No Skin Integrity: Ecchymosis, Edema TABATHA UE and ecchymosis to chest and wounds to TABATHA LE and sacrum, see wound care nursing notes Sensation: NT Oral Motor: WFL Communication: Able to verbalize needs Yes Other: N/A Vision: WFL Yes Other: glasses or contacts Hearing: good; no issues reported COGNITION: Orientation: NT Follows Commands: 1-step Yes Multi-step NT Inconsistencies No Safety Awareness/Judgment: TBD as patient progresses PROBLEM LIST: Decreased independence with ADL, Decreased functional ROM and Decreased strength/endurance for functional activity TREATMENT/INTERVENTION PLAN: Functional motor treatment, Patient/Caregivier Education, Equipment recommendations, Daily living activities and Therapeutic exercises GOAL(S): By discharge, patient will increase independence in daily living skills as follows: 1. Patient will tolerate semichair position x 10 minutes without adverse event. 2. The patient will perform oral care with min assist using built up endocrinology teacher. 3. The patient will sustain dynamic sitting balance x 8 minutes with moderate assist. 4 Patient/caregiver will verbalize/demonstrate understanding/proficiency in the following home programs: TABATHA UE AAROM and AROM 5. TABATHA UE strengthening PATIENT-FAMILY TEACHING Patient and Family member provided with preferred teaching of verbal information on Role of OT. Shows readiness to learn. Verbal instruction teaching provided. Individual is able to read and needs reinforcement of teaching. Dalia Pimentel OTR, OTD, C/NDT Pager [phone] Total Timed Treatment Codes: 0 Min Total Treatment Time: 16 Min A Re-evaluation of an occupational therapy established plan of care was completed including the following components: An assessment of changes in patient functional or medical status; An update to the initial occupational profile to reflect changes in condition or environment that affect future interventions and/or goals; and A revised plan of care. Zunilda Lozoya SLP - 04/29/2019 4:29 PM CDTSPEMISSION [facility] LANGUAGE PATHOLOGY Daily Progress Note 04/29/2019 [id number] Name: Brandon Hodge : 1940 Age: [age] year old Sex: female SUBJECTIVE: Pt was in bed and was alert and wide awake. Daughters present bedside. Per the patient, family and RN patient is swallowing fine. OBJECTIVE: Brandon Hodge is a 78 year old female admitted for AMS with PMH significant for advanced dementia, newly declared ESRD, CHF, CKD, HTN, Gout, RA. Pt had a change in status with possible seizure activity and was sent to ICU. Most recent chest Xray on this date indicated the lungs were clear. Progress on short term goals was as follows: - Patient will tolerate the safest, least restricted po diet texture without overt s/sx of aspiration or other negative effects on medical condition. Pt tolerated multiple bites of purees, mechanical soft, and multiple sips (single and sequential) of thin liquids with no coughing, choking, or other s/sx of aspiration. (goal progressing, continue) - Patient will demonstrate adherence to swallowing precautions with minimal cues 80% of the time. Ptwas positioned upright and fed with LINER INSERTER at bedside. Pt ate slowly and alternated solids and liquids well. (goal progressing, continue ) - Family will participate in education regarding anatomy/physiology of the swallow and Pt's plan of care. Family educated on recommended diet and swallow precautions, in particular sitting fully upright for all oral intake. (goal progressing, continue) ASSESSMENT: Will Zack Hodge made good progress on goals as detailed above. Pt presented with subjectively timely oral stage. She continues to present with mild pharyngeal dysphagia characterized by subjectively reduced laryngeal elevation, however, tolerated all bolus trials with no s/sx of aspiration (Note: aspiration cannot be ruled out nor confirmed without objective assessment / imaging.) Pt appears safe to upgrade diet with swallowing precautions as detailed below. She would benefit from follow-up by LINER INSERTER toassess diet tolerance. PLAN: 1. Recommend Pt advance to mechanical-soft textured diet with thin liquids and swallow precautions: sit fully uptight/chair, small single sips/bites, remain upright for 30 minutes after meals 2. Recommend LINER INSERTER therapy 1-2x/wk while in house for 15-45 min/session to address above goals. Zunilda Palmer M.S., [facility] Speech Language Pathologist Pager: [phone] Office:[phone] Alexa Vega ACNP - 04/29/2019 3:49 PM CDTUSE 160NR FOR HD AND FLUSH WITH 1 LITER OF NS PRIOR TO USING. Alexa Knowles, MSN, RN, ACNP-C Department of Nephrology Nurse Practitioner Office [phone] eslie Waller PTA - 04/29/2019 2:57 PM CDTPTA NOTE: Patient with decline in medical status as she was taken via rapid response to ICU. PT to hold at this time and will continue to follow patient's status. Thank you. Leslie Dodson PTA Supervising PT Roosevelt Adrian René Conde DO - 04/29/2019 12:55 PM CDTBrief MICU Note Date: 04/29/2019 ICU day: 2 day Intubation Day: N/A Code Status: full 12 Hour Events: - EEG done, no evidence of seizure - s/p 2 U prbc - trauma cath placed - ordered MRI head, will likely need premedication - neuro signed off, will come back pending MRI read - stop IV nexium and start omeprazole 40 mg BID - discussed with nephro about dialysis tolerance, they will make changes Plan for next 12 hours: - f/u MRI head read - f/u GI recc's - plan for her to get HD tomorrow, if tolerated TTF René Camacho DO Internal Medicine PGY-2 [place] team Doctor # [id number] Catherine Chavez RN - 04/29/2019 12:34 PM CDTCARE MANAGEMENT PROGRESS NOTE CM received a call from [facility] late yesterday afternoon inquiring about patient doing HD with them. They stated that [facility] in [facility] had set up for this patient to start dialysis with them on discharge. Stated that the facility that the patient is being discharged to is a partner of theirs and they have 3 other patients who live there and that transportation from that facility is provided to their facility for dialysis sessions. The CM explained that the patient had just came to our floor and that I would speak to the previous CM regarding why a referral was sent to [facility] in [place] rather than patient continuing to be accepted at [facility] They state that the lease examiner there does not want to lost with patient att facility. CM will reach out to Katlyn Hernández, to find out what lead to the change. Catherine Chavez, MARY GRACE, BSN Manager Medicaid [facility]-Care Management [email or web address] Office: [phone] Bhargav Courtney DO - 04/29/2019 11:15 AM CDT Gastroenterology Progress Note Date of Service: 04/29/2019 11:15 Chief Complaint: Melena 24-HOUR EVENTS: Patient had black, tarry stool last night as per nurse SUBJECTIVE: Patient had EGD yesterday showing Grade D Esophagitis. Is on IV Nexium 8mg/hr as of this morning. Patient given haldol last night due to agitation. Patient is minimally responsive at bedside. Patient has not had bowel movement this morning. ROS Unable to obtain PHYSICAL EXAM: Vitals: 04/28/19 2200 04/29/19 0000 04/29/19 0200 04/29/19 0400 BP: 127/67 112/59 112/73 116/57 Pulse: 68 64 64 62 Resp: 15 15 14 10 Temp: 35.9 C (96.6 F) 36 C (96.8 F) TempSrc: Axillary Axillary SpO2: 96% Weight: Height: Intake/Output Summary (Last 24 hours) at 04/29/2019 1115 Last data filed at 04/28/2019 1500 Gross per 24 hour Intake 100 ml Output Net 100 ml General: alert and oriented x 1 (person); patient appears tired HEENT: normocephalic atraumatic Lungs: clear to auscultation bilaterally Cardio: S1, S2 normal; no murmurs, rubs or gallops Abdomen: soft; non-tender; non-distended; normoactive bowel sounds Skin: no rashes Neuro- patient minimally responsive; opens eyes on command ASSESSMENT/PLAN Will Zack Hodge is a 78 year old female with PMH as listed above, GI consulted for Melena. Patient Endoscopy revealed Grade D esophagitis. Bleeding likely secondary to esophageal pathology. Plan: - Maintain 2 large bore IVs at all times(at least 18G) - Monitor H&H Q4H and transfuse to keep>8given cardiac Hx. - Keep the patient NPO. - recommend d/c IV nexium and start Omeprazole PO 40mg q12hr -No further recommendations from GI standpoint; please notify if any major changes GI will sign off Bhargav Rios DO Internal Medicine [place] Team Pager#[phone] Patient seen and discussed with Dr. Wilson END OF DAILY PROGRESS NOTE CURRENT MEDICATIONS - reviewed. Current Facility-Administered Medications Medication Dose Route Frequency Last Rate Last Dose haloperidol lactate (HALDOL) injection 1 mg 1 mg Intramuscular ONCE Stopped at 04/29/19 0345 esomeprazole (NEXIUM) 80 mg in NaCl 0.9% (NS) 100 mL IV infusion 8 mg/hr IV Infusion [id number] mL/hr at 04/29/19 0908 8 mg/hr at 04/29/19 0908 Polyethylene Glycol 3350 (MIRALAX) powder 17 g 17 g Oral BID Stopped at 04/28/191999 hydrocortisone sod succ (CORTEF) 50 mg in NaCl 0.9% (NS) piggyback 50 mg IV Piggyback Q8H Stopped at 04/28/19 2200 glucagon (GLUCAGEN DIAGNOSTIC KIT) injection 1 mg 1 mg Intramuscular PRN 1 mg at 04/20/19 1154 calcitriol (ROCALTROL) capsule 0.5 mcg 0.5 mcg Oral DAILY Stopped at 10/06 0900 foLIC acid (FOLATE) tablet 1 mg 1 mg Oral DAILY AT 1700 Stopped at 1700 magnesium oxide (MAG-OX 400) tablet 400 mg 400 mg Oral BID Stopped at 09/06 multivitamin tablet 1 tablet 1 tablet Oral DAILY Stopped at 04/29/19 0900 traMADOL (ULTRAM) tablet 50 mg 50 mg Oral BIDPRN 50 mg at 04/27/19 2108 docusate (COLACE) capsule 100 mg 100 mg Oral BID Stopped at 04/28/191999 ondansetron (ZOFRAN (PF)) injection 4 mg 4 mg Slow IV Push Q6HPRN Associated attestation - Stu Wilson MD - 05/11/2019 11:45 AM CDTGASTROENTEROLOGY AND HEPATOLOGY 04/29/[address] Rios, I interviewed and examined this patient. I agree with resident's note as written. Stu Wilson MD Inventory Specialist Managerfish processing supervisor Division of Gastroenterology and Hepatology Ramp Attendant, Transplant Hepatology [facility] Zoran Padilla MD - 04/29/2019 3:05 AM CDT MICU Progress Note Date of Service: 04/29/2019 03:05 Reason for ICU admission: melena ICU Day: Intubation Day: n/a Code Status: full code Last 24 hour events (major events): EGD performed showing grade D esophagitis Hgb->7.9, transfuesd two units Ct head negative, EEG unremarkable Loss of IV overnight Haldol given for agitation Plan to place trauma cath, discussed necessity with family overnight Subjective: Pt is very irritated overnight and wants to be left alone. Discussed need for IV access overnight. Daughter and grandniece voiced understanding and agreed to proceeding with procedure. Intake/Output: Intake/Output Summary (Last 24 hours) at 04/29/2019 0305 Last data filed at 04/28/2019 1500 Gross per 24 hour Intake 100 ml Output Net 100 ml Physical Exam: Temp: [35.9 C (96.6 F)-36.5 C (97.7 F)] Heart Rate (monitor): [64-73] Pulse: [64-84] Resp: [14-20] BP: (96-154)/(39-104) MAP (mmHg): [61-109] Constitutional: comfortable and in no acute distress, alert and oriented x1-2, not cooperative with physical exam and interview. EENT: no scleral icterus, no conjunctival pallor Cardiovascular: RRR Respiratory: non-labored Gastrointestinal: Abdomen is soft, non-distended, non-tender. MSK: MAEW Skin: no rash Neurologic: grossly non-focal but altered. Psychiatric: normal affect Labs (pertinent only)/Imaging: pending Assessment/Plan: Brandon Hodge is a 78 year old female admitted with acute GI bleed and transient hypotension Neuro Dementia Seizures Possible stroke Possible uremic encephalopathy Patient off of her baseline compared to admit h/p (AAOx2). Will coordinate with neurogloy and imaging. Ct head unremarklable -coordinate with neuro -EEG Resp H/x hypercapnic respiratory failure -monitor Cardiovascular Paroxymal A.Fib w/ RVR, resolved HFpEF HTN Stable. No acute issues -holding lopressor 25mg BID due to GI bleed FEN/GI Grade D esophagitis Melena Grade D esophagitis seen on EGD. Started on PPI. IV infiltrated overnight. Will have to place traumacath. -2 large bore IV -h/h -transfuse 2 units -ppi -coag labs -no htn meds ID Monitor for infection Renal ESRD hyponatremaia -coordinate with nephro Endo Chronic steroid use Adrenal infuffeciecny> -on stress dose steriods. De esclate after bleed HEME: DIC vs HIT Unlikely -monitor OtherDVT prophylaxis: bleeding Lines/Catheters: See rounding report Dispo: Prognosis: guarded Code Status: full Zoran Padilla MD Hospital course Will Ayesha is a 78 y.o female with PMH of ESRD (newly declared),CHFpEF,HTN , RA, gout and dementia who presents as a transfer from [facility] due to concerns of HIT and acute hypotix respoirtory failure initially. 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 She was being managed on the floor when she had sudden drop of Hgb with reports of melena overnight. During dialysis, she suffered a witness seizured and rapid was called. Neurology was consulted and EEG and CT head was ordered for further evaluation. When patient returned, she found to be delerious and non -commumicative. She also had another episdoe of melena with repeat Hgb dropping to 5.6. GI was consulted and ppi gtt was started. She was transferred to MICU for further care. 1 unit was ordered and being transfused with 2nd unit ordered for after. Grade D esophagitis seen on EGD. Continued with IV PPI Associated attestation - Flakito Calvo Jr., MD - 04/29/2019 12:36 PM CDTI personally examined the patient on 04/[address] Padilla's resident note as written . I actively participated in the decision-making process. Please see the resident's note for additional details. Felicia Waston - 04/28/2019 4:27 PM CDTSpeech Pathology Note 04/28/19 ~1546 Attempted to see the patient for follow up today. However, patient has had a change in status with reported seizure today. Pt receiving EEG at this time and team is planning for EGD. [facility] service will follow up with the patient when appropriate. Felicia Plaza M.S., [facility] Speech Pathologist [phone] Jaskaran Hinkle MD - 04/28/2019 2:49 PM Rosa GI note: Patient was seen and examined. Briefly patient admitted recently to [facility] for Encephalopathy which wasthought to be metabolic (progression of her CKD), was declared ESRD and was initiated on HD. 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 Was transferred to [facility] repeat testing with serotonin assay ruled it out. Patient noted to have DIC but no etiology was established. Patient was intitiated on Stress dose steroid given chronically on prednisone at home. 04/27 Patient was noted overnight to have a melanic stool. GI consulted for further evaluation. Melena Comment: Patient with melanic stool witnessed x2, no hematemesis. likely PUD ( patient is on high dose steroid and chronic corticosteroids), no prior Hx of liver disease but given lab abnormalities (lowplt, low albumin), recommend starting octreotide. Others include Dieulafoy's lesion, gastritis, esophagitis. Plan: - Please maintain 2 large bore IVs at all times (at least 18G) - Monitor H&H Q4H and transfuse to keep >8 given cardiac Hx. - Please transfuse 2 units of blood STAT. - Please keep the patient NPO. - Continue PPI gtt and start Octreotide bolus then gtt. - Please check PT/INR, Fibrinogen. - Please hold BB. - Plan for EGD today. Patient was discussed with Dr. Wilson Full consult note to follow. Jaskaran Russo MD PGY4 - Gastroenterology and hepatology Pager # : [phone] Poppy Monte MD - 04/28/2019 1:30 PM CDT [facility] Team Progress/Transfer Note Date of Service: 04/28/2019 13:31 Chief Complaint: 24-HOUR EVENTS: - 2 episodes of melena - HGB dropped to 5.8 - patient became unstable in dialysis unit and after that on floor HOSPITAL COURSE Will Ayesha is a 78 y.o female with PMH of ESRD (newly declared), CHFpEF, HTN, RA, gout and dementia who presents as a transfer from [facility] due to concerns of HIT. 4 T's score is 5 which puts patient at 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. HIT -Ab: Positive. Discussed case with Hematology fellow and they recommended initiating the HIT order set for Argatroban and resending HIT-AB and HIT with Serotonin Release Assay. Argatroban held this morning due to gum bleeding & oozing from perm cath site, discussed with Heme fellow & they are okay with stopping it. At dialysis unit, patient developed SOB andDOB 30 min into treatment activating Rapid Response. She received 4 L O2 via NC and then 9 L via simple face mask. ABG obtained, noted for slight CO2 retention and acidemia. Patient was scheduled to receive 1 U of pRBCs due to Hgb of 6.1, however, Rapid was called before transfusion. After 3 days in ICU, patient appears to be hemodynamically stable and could be transferred to Floor. Patient is oriented to person, but she is not oriented to time and space. Patient does complain about abdominal pain. KUQ results are negative. Will follow up with Nephro for plan of HD post-discharge and ESRD diagnosis. Patient appears more somnolent than usually. According to a resident on-call, . While the patient has been in a dialysis unit, she had a generalized seizure. Rapid response was called due to sudden decrease in BP . Patient received a bolus of fluid and appears stable there afterwards. After a transfer to the floor, she had a second episode of melena and consequently her HGB droppedto 5.8. Due to GI bleeding, patient was transferred to ICU floor. SUBJECTIVE: Patient seems comfortable. Denies any chest/abdominal pain, SOB or palpitations. PHYSICAL EXAM: Vitals: 04/28/19 1006 04/28/19 1008 04/28/19 1030 04/28/19 1241 BP: 106/61 117/60 (!) 104/39 96/58 Pulse: 71 66 77 Resp: Temp: TempSrc: SpO2: Weight: Height: Intake/Output Summary (Last 24 hours) at 04/28/2019 1331 Last data filed at 04/27/2019 210 Gross per 24 hour Intake 170 ml Output Net 170 ml General: alert and oriented x 1 Lungs: clear to auscultation bilaterally Cardio: S1, S2 normal; no murmurs Abdomen: soft; non-tender; non-distended; normoactive bowel sounds Skin: Scattered ecchymoses throughout the body, most prominent on the chest LABS/IMAGING - reviewed ASSESSMENT/PLAN Brandon Hodge is a 78 year old female admitted to the hospital with: Disseminated Intravascular Coagulation Toxic Metabolic Encephalopathy- resolved ESRD ( last HD was on 04/26) Dementia HFpEF HTN Hypoglycemia 2/2 Chronic Prednisone use leading to AI Generalized seizure Poppy Banks MD PGY-1, Neurology [place] Team Pager# [phone] CURRENT MEDICATIONS - reviewed. Current Facility-Administered Medications Medication Dose Route Frequency Last Rate Last Dose epoetin leoncio (EPOGEN) injection 4,000 Units 4,000 Units Intravenous DIALYSIS ONCE - [place] [facility] esomeprazole (NEXIUM) 80 mg in NaCl 0.9% (NS) 100 mL IV infusion 8 mg/hr IV Infusion CONTINUOUS lactated ringers IV infusion 500 mL 500 mL Intravenous ONCE Polyethylene Glycol 3350 (MIRALAX) powder 17 g 17 g Oral BID 17 g at 07/07 hydrocortisone sod succ (CORTEF) 50 mg in NaCl 0.9% (NS) piggyback 50 mg IV Piggyback Q8H 50 mg at 04/28/19 0624 glucagon (GLUCAGEN DIAGNOSTIC KIT) injection 1 mg 1 mg Intramuscular PRN 1 mg at 04/20/19 1154 calcitriol (ROCALTROL) capsule 0.5 mcg 0.5 mcg Oral DAILY 0.5 mcg at 07/07 0751 foLIC acid (FOLATE) tablet 1 mg 1 mg Oral DAILY AT 1700 1 mg at 04/26/192120 magnesium oxide (MAG-OX 400) tablet 400 mg 400 mg Oral BID 400 mg at 07/07 multivitamin tablet 1 tablet 1 tablet Oral DAILY 1 tablet at 04/26/19 075 traMADOL (ULTRAM) tablet 50 mg 50 mg Oral BIDPRN 50 mg at 04/27/192107 docusate (COLACE) capsule 100 mg 100 mg Oral BID 100 mg at 04/27/192039 ondansetron (ZOFRAN (PF)) injection 4 mg 4 mg Slow IV Push Q6HPRN Associated attestation - Emili Browning MD - 04/28/2019 9:17 PM CDTFACULTY NOTE - INTERNAL MEDICINE - [facility] After discussion with the medical team, I examined this patient on 04/28/2019. I actively participated in the decision making process, and I agree with Dr. Banks's resident note as written. Please see the resident's note for details. Emili Browning MD [facility] heel stainerInventory Specialist Manager, Internal Medicine Pager: [phone] Leslie Dodson PTA - 04/28/2019 11:17 AM CDTPTA NOTE: Attempted to see patient in AM however patient currently receiving HD per RN report. Will check back later for PT as time permits. Will notify Supervising PT with patient current status. Leslie Dodson PTA Supervising PT Roosevelt Adrian NDATRLali barrera RN - 04/28/2019 11:16 AM CDTCare Management Note CM called [facility] @ [phone] Asif ext [phone], at 10:31 pts insurance approved HD chair, Asif tirado the patient HD chair at [place] [address] [facility] A [phone], F: [phone], Pts schedule MWF 3:00pm. CM faxed info to [facility] F: [phone] CM notified [facility] Team, the patient, VANESSA daughter Candie@ [phone] and [facility]Rehab [phone] Ambulance pickup at 3:00pm Transfer on HOLD until the patient medically cleared for transfer, per [facility] Team Katlyn Hernández, RN, BSN Care Coordinator 3: 56 PM CDTBAlexa marks, ACNP - 04/28/2019 10:05 AM CDT NEPHROLOGY PROGRESS NOTE 04/28/2019 10:05 CC: access clotted CURRENT MEDICATIONS - reviewed. Current Facility-Administered Medications Medication Dose Route Frequency Last Rate Last Dose epoetin leoncio (EPOGEN) injection 4,000 Units 4,000 Units Intravenous DIALYSIS ONCE - [place] DSU esomeprazole (NEXIUM) 80 mg in NaCl 0.9% (NS) 100 mL IV infusion 8 mg/hr IV Infusion CONTINUOUS esomeprazole (NEXIUM) 80 mg in NaCl 0.9% (NS) 100 mL IV Piggyback 80 mg IV Piggyback ONCE Polyethylene Glycol 3350 (MIRALAX) powder 17 g 17 g Oral BID 17 g at 07/07 hydrocortisone sod succ (CORTEF) 50 mg in NaCl 0.9% (NS) piggyback 50 mg IV Piggyback Q8H 50 mg at 04/28/19 0624 glucagon (GLUCAGEN DIAGNOSTIC KIT) injection 1 mg 1 mg Intramuscular PRN 1 mg at 04/20/19 1154 calcitriol (ROCALTROL) capsule 0.5 mcg 0.5 mcg Oral DAILY 0.5 mcg at 07/07 metoprolol tartrate (LOPRESSOR) tablet 25 mg 25 mg Oral BID 25 mg at 08/06 metoprolol (LOPRESSOR) injection 5 mg 5 mg Intravenous Q5MIN PRN foLIC acid (FOLATE) tablet 1 mg 1 mg Oral DAILY AT 1700 1 mg at 04/26/192120 magnesium oxide (MAG-OX 400) tablet 400 mg 400 mg Oral BID 400 mg at 07/07 multivitamin tablet 1 tablet 1 tablet Oral DAILY 1 tablet at 04/26/19750 traMADOL (ULTRAM) tablet 50 mg 50 mg Oral BIDPRN 50 mg at 04/27/192107 docusate (COLACE) capsule 100 mg 100 mg Oral BID 100 mg at 04/27/192039 ondansetron (ZOFRAN (PF)) injection 4 mg 4 mg Slow IV Push Q6HPRN PHYSICAL EXAM BP: (102-137)/(52-72) Temp: [36.3 C (97.3 F)-36.9 C (98.4 F)] Temp source: Tympanic (04/28 957) Pulse: [65-77] Resp: [18-20] SpO2: [98 %-100 %] Height: -- Weight: [98.4 kg (216 lb 14.9 oz)] Intake/Output Summary (Last 24 hours) at 04/28/2019 1005 Last data filed at 04/27/2019 2108 Gross per 24 hour Intake 170 ml Output Net 170 ml Wt Readings from Last 3 Encounters: 04/28/19 98.4 kg (216 lb 14.9 oz) General: no acute distress and alert ENT: pharynx normal Cardiovascular: Heart regular, rate, rhythm, no murmurs; no edema Respiratory: clear to auscultation, no respiratory distress GI: abd soft, non-tender, non-distended, +BS Skin: intact and warm, dry Neuro: alert, oriented AVF/AVG :avf clotted, rij yobany cath LABS/IMAGING - reviewed, pertinent results as below: Cell count Recent Labs 04/26/19 0501 04/27/1961804/28/19 0059 WBC 8.78 8.09 9.76 HGB 7.6* 7.3* 6.7* MCV 96.8* 96.2* 98.6* PLT 70* 67* 87* Chemistry Recent Labs 04/26/19 0502 04/27/19 0619 04/28/19 0059 NA 130* 132* 132* K 4.7 4.4 4.2 CL 99 100 99 TCO2 28 29 27 CREAT 3.23* 2.44* 2.84* GLU 101 99 93 MG 3.1* 2.6* -- CA 7.8* 7.9* 7.9* Coagulation Profile Recent Labs 04/26/19 0501 04/27/19 0618 04/28/19 0212 APTTPAT 26 25* 20* LFTs Recent Labs 04/26/19 0502 04/27/19618 AST 36 33 ALT 32 35 ALKPHOS 41 48 BILIT 1.7* 1.6* Arterial Blood Gas No results for input(s): ACPH, ACPCO2, ACPO2, ACHCO3, ACNA, ACK, ACCAIONZ, ACBE in the last 72 hours. Urinalysis No results for input(s): UPROTEIN, UGLUCOSE, UKETONES, UBILI, UBLOOD, UUROBILIN , ULEUKEST, UNITRITE,USPGRAV in the last 72 hours. No results for input(s): CK in the last 72 hours. No results found for: VANCOT No results found for: PTHINTACT FERRITIN Date Value Ref Range Status 04/20/2019 340.0 (H) 11.0 - 264.0 ng/mL Final % FE SAT Date Value Ref Range Status 04/20/2019 25 20 - 50 % Final ASSESSMENT/PLAN: ESRD on hemodialysis (primary encounter diagnosis) Comment: TTS, EDW 64 kg Plan: HD today and renally dose medications. Secondary hypertension due to renal disease Comment: bp trending down Plan: hold bp medications on the day of hd Metabolic acidosis Comment: at goal Plan: Continue to monitor no treatment at this time. Secondary hyperparathyroidism (of renal origin) Comment: ca low Plan: Take binders with meals. Anemia in chronic kidney disease Comment: HGB LOW Plan: Epogen for HGB < 10. Nutritional assessment Comment: no issues Plan: Follow renal diet. Vascular access for dialysis for ESRD Comment: justin haywood, pending declot of avf, when k corrected Plan: USE TODAY FOR HD Potassium (K) excess Comment: AT GOAL Plan: Continue to monitor no treatment at this time. Patient seen, examined and discussed with attending lease examiner DR CRISPIN Knowles, MSN, RN, ACNP-C Department of Nephrology Nurse Practitioner Office [phone] Poppy Monte MD - 04/27/2019 2:53 PM CDT [facility] Team Progress Note Date of Service: 04/27/2019 14:54 Chief Complaint: 24-HOUR EVENTS: - No acute events - AFVSS - Hematoma on the left arm (IV access) appears the same as yesterday SUBJECTIVE: Patient seems comfortable. Denies any chest/abdominal pain, SOB or palpitations. PHYSICAL EXAM: Vitals: 04/26/19 2333 04/27/19 0428 04/27/19 0743 04/27/19 1118 BP: 115/64 116/63 107/58 137/64 Pulse: 60 70 68 65 Resp: 18 20 20 20 Temp: 36.6 C (97.9 F) 36.7 C (98.1 F) 36.3 C (97.4 F) 36.3 C ( 97.3 F) TempSrc: Oral Oral Axillary Axillary SpO2: 95% 96% 100% 100% Weight: 102.5 kg (225 lb 15.5 oz) Height: Intake/Output Summary (Last 24 hours) at 04/27/2019 1454 Last data filed at 04/27/2019 0428 Gross per 24 hour Intake 145 ml Output 1200 ml Net -1055 ml General: alert and oriented x 1 Lungs: clear to auscultation bilaterally Cardio: S1, S2 normal; no murmurs Abdomen: soft; non-tender; non-distended; normoactive bowel sounds Skin: Scattered ecchymoses throughout the body, most prominent on the chest LABS/IMAGING - reviewed, pertinent results as below: Hgb 7.6 Plt 70 Cr 3.2 ASSESSMENT/PLAN Will Zack Hodge is a 78 year old female admitted to the hospital with: 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) Toxic Metabolic Encephalopathy- resolving ESRD (newly declared, last HD was on 04/18) Dementia HFpEF HTN Hypoglycemia 2/2 Chronic Prednisone use leading to AI Comment: Stable Plan: - F/u heme and nephro - C/w telemetry, daily BMP, binders with meals - Blood pressure target is 130/80 PAIN: Not an active problem Prophylaxis:Contraindicated 2/2 HIT Stress Ulcer: no indication for prophylaxis Code Status: addressed: Full Poppy Banks MD PGY-1, Neurology [place] Team Pager# [phone] HOSPITAL COURSE Will Ayesha is a 78 y.o female with PMH of ESRD (newly declared), CHFpEF, HTN, RA, gout and dementia who presents as a transfer from [facility] due to concerns of HIT. 4 T's score is 5 which puts patient at 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. HIT -Ab: Positive. Discussed case with Hematology fellow and they recommended initiating the HIT order set for Argatroban and resending HIT-AB and HIT with Serotonin Release Assay. Argatroban held this morning due to gum bleeding & oozing from perm cath site, discussed with Heme fellow & they are okay with stopping it. At dialysis unit, patient developed SOB andDOB 30 min into treatment activating Rapid Response. She received 4 L O2 via NC and then 9 L via simple face mask. ABG obtained, noted for slight CO2 retention and acidemia. Patient was scheduled to receive 1 U of pRBCs due to Hgb of 6.1, however, Rapid was called before transfusion. After 3 days in ICU, patient appears to be hemodynamically stable and could be transferred to Floor. Patient is oriented to person, but is no oriented to time and space. Patient does complain about abdominal pain. KUQ results are negative. Will follow up with Nephro for plan of HD post-discharge and ESRD diagnosis. Watch out for any bleeding or hematoma expansion. Speech specialist attempted to see her yesterday but it wasn't conclusive assessment due patient's decreased alertness. Patient is planning to be discharged to SNF soon. CURRENT MEDICATIONS - reviewed. Current Facility-Administered Medications Medication Dose Route Frequency Last Rate Last Dose Polyethylene Glycol 3350 (MIRALAX) powder 17 g 17 g Oral BID 17 g at 07/07 hydrocortisone sod succ (CORTEF) 50 mg in NaCl 0.9% (NS) piggyback 50 mg IV Piggyback Q8H 50 mg at 04/27/19 0530 glucagon (GLUCAGEN DIAGNOSTIC KIT) injection 1 mg 1 mg Intramuscular PRN 1 mg at 04/20/19 1154 calcitriol (ROCALTROL) capsule 0.5 mcg 0.5 mcg Oral DAILY 0.5 mcg at 07/07 075 metoprolol tartrate (LOPRESSOR) tablet 25 mg 25 mg Oral BID 25 mg at 07/07 metoprolol (LOPRESSOR) injection 5 mg 5 mg Intravenous Q5MIN PRN foLIC acid (FOLATE) tablet 1 mg 1 mg Oral DAILY AT 1700 1 mg at 04/26/192120 magnesium oxide (MAG-OX 400) tablet 400 mg 400 mg Oral BID 400 mg at 07/07 multivitamin tablet 1 tablet 1 tablet Oral DAILY 1 tablet at 04/26/19 075 traMADOL (ULTRAM) tablet 50 mg 50 mg Oral BIDPRN 50 mg at 04/25/19 0526 docusate (COLACE) capsule 100 mg 100 mg Oral BID 100 mg at 04/26/192120 ondansetron (ZOFRAN (PF)) injection 4 mg 4 mg Slow IV Push Q6HPRN Associated attestation - Emili Browning MD - 04/28/2019 9:26 PM CDTFACULTY NOTE - INTERNAL MEDICINE - The [place] Team After discussion with the medical team, I examined this patient on 04/27/2019. I actively participated in the decision making process, and I agree with Dr. Banks's resident note as written. Please see the resident's note for details. Emili Browning MD [facility] heel stainerInventory Specialist Manager, Internal Medicine Pager: [phone] Lali Hernández, MARY GRACE - 04/27/2019 2:24 PM CDTCare Management Note CM sent referral for the patient to go to LTAC, the patient not approved for LTAC. CM send referral to [facility]Rehab center [address] [place] , [place] [phone] F: [phone]. FAITH received email from Rebecca Byrd that the patient approved for Rehab per [facility] @[phone] Vian[employer] is rep. CM spoke with the patient & MPOA her daughter Candie Bear@[phone], daughter gave verbal Choice approval over the phone and the patient unable to sign Choice letter. CM called [facility]- [phone] they have all the documents they need, per Gila they are waiting approval from insurance CM called [employer]@ [phone] [facility] insurance to inquire regarding if HD chair with [facility] is approved left message on voicemail. CM await CB. @15:29, Per [facility] she only [facility] Katlyn Hernández, RN, BSN Care Coordinator 3: 58 PM Poppy Vasquez SLP - 04/27/2019 10:57 AM CDTSpeech-Language Pathology 04/27/2019 1000 [facility]TER attempted to see Pt this morning for dysphagia/swllowing treatment. Pt had breakfast of purees at bedside (had eaten approximately 25%). Pt had decreased alertness, did not open eyes despite verbaland tactile cues, and refused all bolus trials. [facility]TER will attempt to see pt later today as time permits. Poppy Hauser MS, [facility] Speech-Language Pathologist Pager # [phone] Text Only # [phone] signed by Poppy Hauser SLP at 07/2019 11:00 AM Poppy Vasquez SLP - 04/27/2019 10:55 AM CDTSpeech- Language Pathology 04/27/2019 0926 [facility] INSERTER attempted to see Pt this morning for dysphagia/swllowing treatment Pt was asleep and did not wake despite maximal verbal cues and sternal rubbing. Pt not appropriate for PO trials in lethargic state. LINER INSERTER will attempt to see pt later today as time permits. Poppy Hauser MS, [facility] Speech-Language Pathologist Pager # [phone] Text Only # [phone] Reggie Calles [facility] - 04/26/2019 7:51 PM CDT NEPHROLOGY PROGRESS NOTE 04/26/2019 19:54 Subjective: Brandon Hodge is 78 year old female being seen in follow up by nephrology because of ESRD on dialysis, seen and examined today. No new issues. CURRENT MEDICATIONS - reviewed. Current Facility-Administered Medications Medication Dose Route Frequency Last Rate Last Dose sodium citrate anticoagulant 4 gram /100 mL (4 %) injection 4 mL 4 mL Catheter Dwell DIALYSIS ONCE - [place] DSU Polyethylene Glycol 3350 (MIRALAX) powder 17 g 17 g Oral BID 17 g at 07/07 0751 hydrocortisone sod succ (CORTEF) 50 mg in NaCl 0.9% (NS) piggyback 50 mg IV Piggyback Q8H 50 mg at 04/26/19 0751 glucagon (GLUCAGEN DIAGNOSTIC KIT) injection 1 mg 1 mg Intramuscular PRN 1 mg at 04/20/19 1154 calcitriol (ROCALTROL) capsule 0.5 mcg 0.5 mcg Oral DAILY 0.5 mcg at 07/07 0751 metoprolol tartrate (LOPRESSOR) tablet 25 mg 25 mg Oral BID 25 mg at 07/07 0751 metoprolol (LOPRESSOR) injection 5 mg 5 mg Intravenous Q5MIN PRN foLIC acid (FOLATE) tablet 1 mg 1 mg Oral DAILY AT 1700 1 mg at 04/24/19 1631 magnesium oxide (MAG-OX 400) tablet 400 mg 400 mg Oral BID 400 mg at 07/07 0751 multivitamin tablet 1 tablet 1 tablet Oral DAILY 1 tablet at 04/26/19 0751 traMADOL (ULTRAM) tablet 50 mg 50 mg Oral BIDPRN 50 mg at 04/25/19 0526 docusate (COLACE) capsule 100 mg 100 mg Oral BID 100 mg at 04/26/19 0751 ondansetron (ZOFRAN (PF)) injection 4 mg 4 mg Slow IV Push Q6HPRN PHYSICAL EXAM BP: (89-154)/(29-88) Temp: [36.2 C (97.1 F)-36.7 C (98 F)] Temp source: Tympanic (04/26 1745) Pulse: [61-108] Resp: [16-20] SpO2: [98 %-100 %] Height: -- Weight: [102 kg (224 lb 13.9 oz)-102.3 kg (225 lb 8.5 oz)] Wt Readings from Last 3 Encounters: 04/26/19 102.3 kg (225 lb 8.5 oz) General: no acute distress and alert x 1 Cardiovascular: Heart regular, rate, rhythm, no murmurs; no edema Respiratory: clear to auscultation, no respiratory distress GI: abd soft, non-tender, non-distended, +BS, no HSM Dialysis Access : Perm cath Intake/Output Summary (Last 24 hours) at 04/26/2019 195 Last data filed at 04/26/2019 1900 Gross per 24 hour Intake 215 ml Output 1200 ml Net -985 ml LABS/IMAGING - Reviewed ASSESSMENT/PLAN: - ESRD on TTS schedule - Anemia of chronic disease - MBD -Hypertension 78 y.o female with PMH of ESRD (newly declared),CHFpEF,HTN, RA, gout and dementia who presentedwith AMS and HIT. - ESRD on TTS schedule - we did HD today and we will keep her on the schedule TTS - Epogen if Hgb below 10. - Binders with meals. - Blood pressure Target is 130/80. - Daily BMP - Other issues per primary team. Patient seen, examined and discussed with attending lease examiner Dr. Robi Huggins Nephrology Fellow, PGY 5 Pager Number [phone] Associated attestation - Vanessa Rosenbaum MD - 04/26/2019 10:55 PM CDTI have personally seen and examined this patient on hemodialysis with Dr. Huggins on . I have reviewed the assessment and plan as outlined in the progress note and agree with the overall approach to this patient. I personally participated in the decision-making process as relates to this patient's medical condition. Please refer to Dr. Huggins's progress note for details of the medical care provided. Lali Hernández RN - 04/26/2019 4:39 PM CDT Care Management Note CM called pts daughter Candie [phone], per pts request regarding SNF, vs LTAC.Daughter wants whatever is best for her mom. HD chair intake application faxed to [facility] intake office [phone], CM will f/u in am with [facility] [phone] CM will speak with the the patient and daughter in am& f/u with [facility]. Katlyn Hernández RN, BSN Manager Medicaid Poppy Monte MD - 04/26/2019 11:52 AM CDT [facility] Team Progress Note Date of Service: 04/26/2019 11:52 Chief Complaint: 24-HOUR EVENTS: - No acute events overnight - AFVSS - Hematoma on the left arm (IV access) appears bigger SUBJECTIVE: Patient does appear more alert today then usually. Denies any chest/abdominal pain, SOB or palpitations. PHYSICAL EXAM: Vitals: 04/25/19 2310 04/26/19 0504 04/26/19 0721 04/26/19 1117 BP: 127/58 116/57 132/77 133/55 Pulse: 64 69 70 66 Resp: 16 16 18 20 Temp: 36.7 C (98 F) 36.7 C (98 F) 36.3 C (97.3 F) 36.2 C (97.1 F ) TempSrc: Oral Oral Oral Oral SpO2: 98% 98% 100% 100% Weight: 102 kg (224 lb 13.9 oz) Height: Intake/Output Summary (Last 24 hours) at 04/26/2019 1152 Last data filed at 04/26/2019 1117 Gross per 24 hour Intake 320 ml Output Net 320 ml General: alert and oriented x 1 Lungs: clear to auscultation bilaterally Cardio: S1, S2 normal; no murmurs Abdomen: soft; non-tender; non-distended; normoactive bowel sounds Skin: Scattered ecchymoses throughout the body, most prominent on the chest LABS/IMAGING - reviewed, pertinent results as below: Hgb 7.6 Plt 70 Cr 3.2 ASSESSMENT/PLAN Brandon Hodge is a 78 year old female admitted to the hospital with: 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) Toxic Metabolic Encephalopathy- resolving ESRD (newly declared, last HD was on 04/18) Dementia HFpEF HTN Hypoglycemia 2/2 Chronic Prednisone use leading to AI Comment: Stable Plan: - Dialysis today - F/u heme and nephro - C/w telemetry PAIN: Not an active problem Prophylaxis:Contraindicated 2/2 HIT Stress Ulcer: no indication for prophylaxis Code Status: addressed: Full Poppy Banks MD PGY-1, Neurology [place] Team Pager# [phone] HOSPITAL COURSE Brandon Hodge is a 78 y.o female with PMH of ESRD (newly declared), CHFpEF, HTN, RA, gout and dementia who presents as a transfer from [facility] due to concerns of HIT. 4 T's score is 5 which puts patient at 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. HIT -Ab: Positive. Discussed case with Hematology fellow and they recommended initiating the HIT order set for Argatroban and resending HIT-AB and HIT with Serotonin Release Assay. Argatroban held this morning due to gum bleeding & oozing from perm cath site, discussed with Heme fellow & they are okay with stopping it. At dialysis unit, patient developed SOB andDOB 30 min into treatment activating Rapid Response. She received 4 L O2 via NC and then 9 L via simple face mask. ABG obtained, noted for slight CO2 retention and acidemia. Patient was scheduled to receive 1 U of pRBCs due to Hgb of 6.1, however, Rapid was called before transfusion. After 3 days in ICU, patient appears to be hemodynamically stable and could be transferred to Floor. Patient is oriented to person, but is no oriented to time and space. Patient does complain about abdominal pain. KUQ results are negative. Will follow up with Nephro for plan of HD post-discharge and ESRD diagnosis. Watch out for any bleeding or hematoma expansion. CURRENT MEDICATIONS - reviewed. Current Facility-Administered Medications Medication Dose Route Frequency Last Rate Last Dose sodium citrate anticoagulant 4 gram /100 mL (4 %) injection 4 mL 4 mL Catheter Dwell DIALYSIS ONCE - [place] D[facility] Polyethylene Glycol 3350 (MIRALAX) powder 17 g 17 g Oral BID 17 g at 07/07 075 hydrocortisone sod succ (CORTEF) 50 mg in NaCl 0.9% (NS) piggyback 50 mg IV Piggyback Q8H 50 mg at 04/26/19 0751 glucagon (GLUCAGEN DIAGNOSTIC KIT) injection 1 mg 1 mg Intramuscular PRN 1 mg at 04/20/19 1154 calcitriol (ROCALTROL) capsule 0.5 mcg 0.5 mcg Oral DAILY 0.5 mcg at 07/07 0751 metoprolol tartrate (LOPRESSOR) tablet 25 mg 25 mg Oral BID 25 mg at 07/07 0751 metoprolol (LOPRESSOR) injection 5 mg 5 mg Intravenous Q5MIN PRN foLIC acid (FOLATE) tablet 1 mg 1 mg Oral DAILY AT 1700 1 mg at 04/24/19 1631 magnesium oxide (MAG-OX 400) tablet 400 mg 400 mg Oral BID 400 mg at 07/07 0751 multivitamin tablet 1 tablet 1 tablet Oral DAILY 1 tablet at 04/26/19 0751 traMADOL (ULTRAM) tablet 50 mg 50 mg Oral BIDPRN 50 mg at 04/25/19 0526 docusate (COLACE) capsule 100 mg 100 mg Oral BID 100 mg at 04/26/19 0751 ondansetron (ZOFRAN (PF)) injection 4 mg 4 mg Slow IV Push Q6HPRN Associated attestation - Emili Browning MD - 04/28/2019 9:56 PM CDTFACULTY NOTE - INTERNAL MEDICINE - [facility] After discussion with the medical team, I examined this patient on 04/26/2019. I actively participatedin the decision making process, and I agree with Dr. Banks's resident note as written. Please seethe resident's note for details. Emili Browning MD [facility] heel stainerInventory Specialist Manager, Internal Medicine Pager: [phone] Estefanía Black - 04/26/2019 11:19 AM CDT MEDICAL NUTRITION THERAPY - Follow Up I have reviewed the comprehensive progress notes dated today as well as additional physician and allied health provider notes and EPIC information for an understanding of the patient's current medical condition and plans for further treatment and care. 78 year old female with PMH of ESRD (newly declared),CHFpEF,HTN, RA, gout and dementia who presents as a transfer from [facility] due to concerns of HIT. 4 T's score is 5 which puts patient at 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. HIT-Ab: Positive. Discussed case with Hematology fellow, whorecommended initiating the HIT order set for Argatroban and resending HIT-AB and HIT with Serotonin Release Assay.Argatroban held the following morningdue to gum bleeding & oozing from perm cath site.With further workup,however,Hemeteam favors DIC as diagnosis,given low fibrinogen associated with coagulopathy. Fibrinogen on admission 89 and responsive to cryo infusion. Coagulopathy improving with withholding Argatroban and other anticoags. Patient was scheduled for dialysis on 04/21. At dialysis unit, patient developed SOB and 30 min into treatment activating Rapid Response. She received 4 L O2via NC and then 9 L via simple face mask. ABG obtained, noted for slight CO2 retention and acidemia.After 3 days in ICU, she was HDS and was transferred back to floor. HDS x 3 during this hospital course. Will follow up with Nephro for plan of HD post-discharge and ESRD diagnosis per Dr. Franklin's note on 04/25. Diet Order: (04/21) Regular Diet, Mechanical Soft texture diet; (04/20) Nepro Vanilla BID; (04/20) Ensure Enlive Chocolate ONCE daily Documented Food Allergies/Intolerance/Cultural Preferences: None GI and Nutrition Related Findings: Pt minimally conversant and confused during visit. When inquiredabout how she is eating, the patient states "fine". She reports she ate fish and grits for breakfast this morning. Pt states she has not had any oral supplements and is agreeable to drinking them. None observed in the patient's room or refrigerator. Pt denies N/V/D/C at this time. PO intake: 0-25% of meals per nursing documentation +BM 04/25 UOP anuric Last HD 04/23 UF 0 mL General: Edema: 3+ TABATHA foot, leg Wounds: + sx wound R chest; Stage II mid sacrum; Stage II posterior knee Pertinent Medications: Noted. Includes: Calcitriol, Colace BID, Folate, Mag Ox BID, MVi, IV Zofran PRN, Miralax BID, Prednisone Labs and Medical Test Results: Reviewed. Results for BRANDON HODGE ( ) as of 04/26/2019 11:19 04/23/2019 04:41 04/24/2019 07:18 04/25/2019 05:35 04/26/2019 05:02 NA 128 (L) 131 (L) 132 (L) 130 (L) K 4.7 4.1 4.5 4.7 CL 98 97 (L) 99 99 CO2 TOTAL 28 29 28 28 AGAP 2 5 5 3 BUN 50 (H) 30 (H) 38 (H) 46 (H) GLUCOSE 103 98 102 101 CREATININE 3.44 (H) 2.50 (H) 2.90 (H) 3.23 (H) eGFR CALCULATION () 15.6 22.6 19.0 16.8 TOTAL BILI 1.9 (H) 1.7 (H) CALCIUM 7.8 (L) 7.9 (L) 8.1 (L) 7.8 (L) MAGNESIUM 2.1 2.8 (H) 3.1 (H) T PROTEIN 4.6 (L) 4.4 (L) ALBUMIN 2.1 (L) 2.1 (L) ALK PHOS 36 41 ALT(SGPT) 32 32 32 AST(SGOT) 23 30 36 Anthropometrics: Height: 5' 3" Weight: 224.8 lbs (102 kg) Body mass index is 39.83 kg/m. IBW: 140.5 lbs (63.7 kg) at BMI 24.9 kg/m^2 %IBW: 160% UBW: unknown Admit Weight: 280 lbs (127 kg) NUTRITION DIAGNOSIS: 1) Inadequate protein-energy intake related to decreased ability to consume sufficient protein and/or energy as evidenced by PO intake meeting <50% or less of estimated needs for the past 7+ days. NUTRITION INTERVENTIONS: 1) Continue liberalized diet to promote PO intake as tolerated. - Renal diet appears unnecessary at this time as K, Phos WNL and patient with poor intake. 2) Encourage intake of ONS TID (e.g. 2 Vanilla Nepro and 1 Chocolate Ensure Enlive daily). 3) Please discontinue regular Multivitamin - fat soluble vitamin supplementation not recommended in ESRD patients (Vit A can accumulate). Suggest NephroVite once daily. 4) Administer meds as needed for bowel regularity. Goal(s): 1) The patient will be able to consume 75% of all meals without any intolerances during this admission. MONITORING/EVALUATION: - RD to continue following with Nephrology team to review pt's progress, report nutrition related information, and to revise the recommended nutrition intervention(s) if necessary; please call with questions or concerns Anticipated Discharge Needs: None identified at this time. Estefanía Black, MS, RD, BLUEPRINT MACHINE OPERATOR, LD Nephrology Dietitian Pager: [phone] signed by Estefanía Black at 04/26/2019 2: 07 PM Leslie Spears, TECHNOLOGIST DEVELOPMENT - 04/26/2019 9:45 AM CDTPTA NOTE: Attempted to see patient in AM. Patient found semi reclined in bed upon arrival. Patient decliningtherapy stating "I don't feel good and I'm upset." Educated pt with the importance and benefits of participating with PT however pt still declined. RN notified. Will check back later for PT as time permits. Will notify Supervising PT with patient current status. Leslie Dodson PTA Supervising PT Roosevelt Adrian Lali Martinez RN - 04/26/2019 8:12 AM CDTCare Management Continued Stay Assessment LOS Day: 13 Estimated /Planned Discharge Date: 04/29/2019 [facility] female 78 year old Date CM/SW last Face to Face completed with patient/family: 04/26/2019 Funding source: Payor: [employer] - MANAGED MEDICARE / Plan: [employer] DUAL COMPLETE HMO / Product Type: Medicare Adv HMO / Insurance DC category planner: PCP:Sg Levy Patient/Family/MPOA/Caregiver Engaged with Transitional Care Plan: yes Patient/Family/MPOA/Caregiver concurs with proposed discharge plan: yes Name, Relationship to Patient and contact number of individual acting on behalf of the patient: mendez Schreiber [phone] Chief Complaint/Admitting Dx:UREMIA ALTERED MENTAL STATUS Hospital Problems: Uremia FIGUEROA (dyspnea on exertion) Bradycardia Uncontrolled hypertension 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 4 T's score is 5 which puts patient at 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. HIT -Ab: Positive. Discussed case with Hematology fellow and they recommended initiating the HIT order set for Argatroban and resending HIT-AB and HIT with Serotonin Release Assay. Argatroban held this morning due to gum bleeding & oozing from perm cath site, discussed with Heme fellow & they are okay with stopping it. At dialysis unit, patient developed SOB and 30 min into treatment activating Rapid Response. She received 4 L O2 via NC and then 9 L via simple face mask. ABG obtained, noted for slight CO2 retention and acidemia. Patient was scheduled to receive 1 U of pRBCs due to Hgb of 6.1, however, Rapid was called before transfusion.After 3 days in ICU, patient appears to be hemodynamically stable and could be transferred to Floor. Patient is oriented to person, but is no oriented to time and space. Patient does complain about abdominal pain. KUQ results are negative. Will follow up with Nephro for plan of HD post-discharge and ESRD diagnosis.Watch out for any bleeding or hematoma expansion. CM/SW Interventions/Resources provided: Called [facility] where the patient resides -they will not transport the patient to HD chair. Called granddaughter to get pts daughter's number. Called pts daughter [phone] to discuss finding new SNF for her Mom and HD chair@15:24 CM/SW Interventions/Resources still needed:CM Contacted set referral to [facility] in [place] [phone] Admission intake form faxed to Intake office@ [phone] [phone] If DC to home, who will support patient: NA Anticipated DME needs: None Referrals sent: yes If no, why/when will referral be sent:: NA Has patient been accepted: pending [facility] & pending [facility] Revised plan if not accepted: send referral to another SNF and [facility] What is the clinical care happening right now that must be done in the hospital and only the hospital: patient does not have a HD chair Please addend note following Length of Stay rounds and complete section below Were any recommendations made during LOS rounds on this patient:no If yes, what new recommendations were made at LOS: TARA Hernández RN, BSN Manager Medicaid René Conde DO - 04/25/2019 10:21 PM CDTPer CDI query; Acute hypercapnic respiratory failure, resolving René Camacho DO Internal Medicine PGY-2 Devin Carmen DO - 04/25/2019 6:15 PM CDT Hematology Progress Note Date: 04/25/2019 18:15 Reason for Consultation: Thrombocytopenia Subjective: Patient is fatigued and unable to carry a conversation today. She received 1unit packed red blood cells yesterday. PHYSICAL EXAMINATION: Vitals: 04/25/19 0334 04/25/19 0727 04/25/19 1140 04/25/19 1526 BP: 129/52 108/53 118/49 127/62 Pulse: 60 72 72 66 Resp: 16 17 17 17 Temp: 36.3 C (97.4 F) 37 C (98.6 F) 36.6 C (97.8 F) 36.9 C (98.4 F) TempSrc: Axillary Axillary Axillary Axillary SpO2: 97% 99% 97% 100% Weight: Height: General: somnolent, briefly arousable with sternal rub Lungs: bibasilar crackles, no chest pain with deep inspiration, not requiring supplemental O2 Cardio: regular rate and rhythm, no murmurs appreciated Abdomen: soft, non-tender, non-distended Extremities: no pitting edema or tenderness Neuro: No focal deficits Skin: Diffuse purpura, no bleeding surrounding central and peripheral lines Labs: Results for BRANDON HODGE ( ) as of 04/25/2019 18:18 Ref. Range 04/25/2019 05:34 HGB Latest Ref Range: 11.6 - 15.0 g/dL 8.2 (L) Assessment/Plan Brandon Hodge is a 78 year old female with Thrombocytopenia Anemia Consumptive coagulopathy Patient without any signs of thrombosis. Heparin induced thrombocytopenia (HIT) -antibody is negative on [facility] lab. Serotonin release assay is negative as well. This is further confirmation that she does not have HIT. The other explanation for her thrombocytopenia was disseminated intravascular coagulation (DIC). Her coagulopathy responded well with cryoprecipitate however the cause of DIC remains unclear as she displays no signs of infection. She tolerated dialysis well 2 days ago. - hold anticoagulation for now - Will monitor clinic course, daily labs and improvement with subsequent dialysis. The patient has been seen and discussed with Dr. Zimmerman. Please call with any questions. Devin Mccurdy D.O. Department of Internal Medicine PGY-1, [facility] Team Doctor's Number: [phone] Associated attestation - Julian Zimmerman MD - 04/25/2019 6:58 PM CDTHematology Faculty Progress Note I have seen and examined Ms. Brandon Hodge with Dr. Devin Mccurdy, an internal medicine resident currently assigned to the hematology service. I am in agreement with the observations, comments, and recommendations related to this patient as outlined in the most recent hematology note written by Dr. Mccurdy. This patient does not have heparin induced thrombocytopenia. The specific cause of thelow platelet count is not evident. Perhaps is related to a recent infection. No anticoagulation is needed at this time. Julian Zimmerman MD,FACP Flight Test Engineer in Hematology and Transfusion Medicine Assessment Counselor of the Blood Bank [facility] Ext: [phone] Hernández RN - 04/25/2019 3: 47 PM CDTCare Management Note called [facility] [address], [place] F: [phone]. CM spoke with Nita@15:47. FAITH informed Nita that pt has not been declared yet. Nita informed FAITH that if pt is declared, the family would need to provide transportation to & from HD center. FAITH will sf/u with pt & family once pt is declared Katlyn Hernández RN, BSN Manager Medicaid Kiran Balbuena MD - 04/25/2019 7:13 AM CDT PGY-1 [place] Team Progress Note Date of Service: 04/25/2019 07:14 Days Since Admission: 12 Chief Complaint: Chief Complaint Patient presents with Other "lab draw" Tremors 24-HOUR EVENTS: No acute event overnight SUBJECTIVE: Ms. Hodge was somnolent this morning. She was answering yes/no to a few questions and was able to follow commands (squeezing fingers). OBJECTIVE: Vitals: reviewed Temp: [36.3 C (97.3 F)-36.8 C (98.3 F)] Pulse: [60-69] Resp: [15-17] BP: (93-129)/(46-67) MAP (mmHg): [58-68] O2: well sat on O2 Vitals: 04/24/19 1605 04/24/19 1909 04/24/19 2306 04/25/19 0334 BP: 105/67 124/52 120/48 129/52 Pulse: 67 69 61 60 Resp: 17 16 16 16 Temp: 36.4 C (97.6 F) 36.6 C (97.9 F) 36.3 C (97.3 F) 36.3 C ( 97.4 F) TempSrc: Axillary Axillary Axillary Axillary SpO2: 100% 94% 97% 97% Weight: Height: Intake/Output: Intake/Output Summary (Last 24 hours) at 04/25/2019 0714 Last data filed at 04/25/2019 0630 Gross per 24 hour Intake 457 ml Output Net 457 ml Physical Exam: Physical Exam Constitutional: She appears well-developed and well-nourished. HENT: Head: Normocephalic and atraumatic. Neck: Normal range of motion. Cardiovascular: Normal rate, regular rhythm and normal heart sounds. Pulmonary/Chest: Effort normal. Abdominal: Soft. Bowel sounds are normal. Skin: Receding bruise on chest wall. Smaller hematoma on right UE. No bleedings from ports or lines. LABS/IMAGING - reviewed, pertinent results as below: Hgb 8.2 (6.6 yesterday) Plt 66 APTT : 25 Cr: 2.9 ASSESSMENT/PLAN Will Zack Hodge is a 78 year old female admitted to the hospital with: 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 Patient presented withgum bleeding and oozing perm cath site and previous IV site and ecchymosis throughout her body. Heme followed patient. Dx of DIC more favorable given low fibrinogen associated with coagulopathy. Fibrinogen on admission 89 and responsive to cryo infusion. Coagulopathy improving with withholding Argatroban and other anticoags. - Etiology: still undetermined -Holding Argatroban -F/u Heme Recs -F/u Nephro Recs -No Heparin or Warfarin Products - Follow up on Serotonin Release Assay Hemolytic anemia, acute: - 2/2 DIC - Hgb 6.6 04/24, transfuse 1 u pRBC, back to 8.7 today - H/H Toxic Metabolic Encephalopathy- resolving ESRD (newly declared, last HD was on 04/18) Dementia Comment: - HD 04/19, 04/21, 04/23 - Still somnolent today. Given baseline mental status yesterday, not concerning and possibly due to use of Tramadol and possible delirium. AFVSS - delirium usually improves outside hospital Paroxymal A.Fib w/ RVR, resolved HFpEF HTN Comment:Stable, normal sinus rhythm today -C/w telemetry -C/w Lopressor 25mg BID Hypoglycemia 2/2 Chronic Prednisone use leading to AI Comment:Stable -C/w Prednisone 10mg daily PAIN: Not an active problem Prophylaxis:Contraindicated 2/2 HIT Stress Ulcer: no indication for prophylaxis Code Status: addressed:Full DISPOSITION Anticipated Discharge Date: tbd Discharge To: home Barriers to Discharge: clinical improvement Kiran Franklin M.D. Department of Internal Medicine PGY1, [facility] Team Pager's Number: [phone] END OF DAILY PROGRESS NOTE HOSPITAL COURSE Brandon Hodge is a 78 y.o female with PMH of ESRD (newly declared),CHFpEF,HTN , RA, gout and dementia who presents as a transfer from [facility] due to concerns of HIT. 4 T's score is 5 which puts patient at 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. HIT -Ab: Positive. Discussed case with Hematology fellow, who recommended initiating the HIT order set for Argatroban and resending HIT-AB and HIT with Serotonin Release Assay.Argatroban held the following morning due to gum bleeding & oozing from perm cath site.With further workup, however, Heme team favors DIC as diagnosis, given low fibrinogen associated with coagulopathy. Fibrinogen on admission 89 and responsive to cryo infusion. Coagulopathy improving with withholding Argatroban and other anticoags. Patient was scheduled for dialysis on 04/21. At dialysis unit, patient developed SOB and 30 min into treatment activating Rapid Response. Shereceived 4 L O2 via NC and then 9 L via simple face mask. ABG obtained, noted for slight CO2 retention and acidemia. After 3 days in ICU, she was HDS and was transferred back to floor. HDS x 3 during this hospital course. Will follow up with Nephro for plan of HD post-discharge and ESRD diagnosis. Discharge Planning: - CURRENT MEDICATIONS - reviewed. Current Facility-Administered Medications Medication Dose Route Frequency Last Rate Last Dose Polyethylene Glycol 3350 (MIRALAX) powder 17 g 17 g Oral BID 17 g at 05/06 hydrocortisone sod succ (CORTEF) 50 mg in NaCl 0.9% (NS) piggyback 50 mg IV Piggyback Q8H 50 mg at 04/24/19 233 glucagon (GLUCAGEN DIAGNOSTIC KIT) injection 1 mg 1 mg Intramuscular PRN 1 mg at 04/20/19 1154 calcitriol (ROCALTROL) capsule 0.5 mcg 0.5 mcg Oral DAILY 0.5 mcg at 04/06 metoprolol tartrate (LOPRESSOR) tablet 25 mg 25 mg Oral BID 25 mg at 05/06 metoprolol (LOPRESSOR) injection 5 mg 5 mg Intravenous Q5MIN PRN foLIC acid (FOLATE) tablet 1 mg 1 mg Oral DAILY AT 1700 1 mg at 04/24/19 1631 magnesium oxide (MAG-OX 400) tablet 400 mg 400 mg Oral BID 400 mg at 05/06 multivitamin tablet 1 tablet 1 tablet Oral DAILY 1 tablet at 04/23/1936 traMADOL (ULTRAM) tablet 50 mg 50 mg Oral BIDPRN 50 mg at 04/25/19 0526 docusate (COLACE) capsule 100 mg 100 mg Oral BID 100 mg at 04/24/192037 ondansetron (ZOFRAN (PF)) injection 4 mg 4 mg Slow IV Push Q6HPRN Associated attestation - Emili Browning MD - 04/28/2019 10:05 PM CDTFACULTY NOTE - INTERNAL MEDICINE - [facility] After discussion with the medical team, I examined this patient on 04/25/2019. I actively participatedin the decision making process, and I agree with Dr. Franklin' s resident note as written. Please see theresident's note for details. Emili Browning MD [facility] heel stainerInventory Specialist Manager, Internal Medicine Pager: [phone] Poppy Banks MD - 04/24/2019 7:52 AM CDT [facility] Progress Note Date of Service: 04/24/2019 07:52 Chief Complaint: abdominal pain 24-HOUR EVENTS: - AFVSS - HGB down to 6.4 SUBJECTIVE: Patient does not complain about abdominal pain today. Denies any of this symptoms: nausea/vomiting,chest pain or bleeding. PHYSICAL EXAM: Vitals: 04/23/19 2003 04/23/19 2035 04/23/19 2308 04/24/19 0324 BP: 137/69 126/90 100/54 118/69 Pulse: 90 97 84 64 Resp: 16 16 16 16 Temp: 36.3 C (97.3 F) 36.4 C (97.6 F) 36.3 C (97.4 F) 36.4 C ( 97.5 F) TempSrc: Tympanic Axillary Axillary Axillary SpO2: 100% 96% 100% Weight: 96.5 kg (212 lb 11.9 oz) 98 kg (216 lb 0.8 oz) Height: Intake/Output Summary (Last 24 hours) at 04/24/2019 0752 Last data filed at 04/24/2019 0600 Gross per 24 hour Intake 50 ml Output 0 ml Net 50 ml General: alert and oriented x 3 Oral Cavity: bleeding from her gums Lungs: clear to auscultation bilaterally Cardio: S1, S2 normal; no murmurs Abdomen: soft; non-tender; non-distended; normoactive bowel sounds Skin: Scattered ecchymoses throughout the body, most prominent on the chest, perm cath oozing blood. 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) Toxic Metabolic Encephalopathy- resolving ESRD (newly declared, last HD was on 04/18) Dementia Paroxymal A.Fib w/ RVR, resolved HFpEF HTN Hypoglycemia 2/2 Chronic Prednisone use leading to AI Comment: Stable Plan: - F/u with nephrology - PAIN: Not an active problem Prophylaxis:Contraindicated 2/2 HIT Stress Ulcer: no indication for prophylaxis Code Status: addressed: Full Poppy Banks MD PGY-1, Neurology [place] Team Pager# [phone] HOSPITAL COURSE Will Ayesha is a 78 y.o female with PMH of ESRD (newly declared), CHFpEF, HTN, RA, gout and dementia who presents as a transfer from [facility] due to concerns of HIT. 4 T's score is 5 which puts patient at 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. HIT -Ab: Positive. Discussed case with Hematology fellow and they recommended initiating the HIT order set for Argatroban and resending HIT-AB and HIT with Serotonin Release Assay. Argatroban held this morning due to gum bleeding & oozing from perm cath site, discussed with Heme fellow & they are okay with stopping it. At dialysis unit, patient developed SOB andDOB 30 min into treatment activating Rapid Response. She received 4 L O2 via NC and then 9 L via simple face mask. ABG obtained, noted for slight CO2 retention and acidemia. Patient was scheduled to receive 1 U of pRBCs due to Hgb of 6.1, however, Rapid was called before transfusion. After 3 days in ICU, patient appears to be hemodynamically stable and could be transferred to Floor. Patient is oriented to person, but is no oriented to time and space. Patient does complain about abdominal pain. KUQ results are pending. Nephrology on- board with following recommendations: the need ofdialysis on a daily basis would be assessed, give dialysis adjusted doses of medications. CURRENT MEDICATIONS - reviewed. Current Facility-Administered Medications Medication Dose Route Frequency Last Rate Last Dose Polyethylene Glycol 3350 (MIRALAX) powder 17 g 17 g Oral BID 17 g at 04/06 hydrocortisone sod succ (CORTEF) 50 mg in NaCl 0.9% (NS) piggyback 50 mg IV Piggyback Q8H 50 mg at 04/24/19 0622 glucagon (GLUCAGEN DIAGNOSTIC KIT) injection 1 mg 1 mg Intramuscular PRN 1 mg at 04/20/19 1154 calcitriol (ROCALTROL) capsule 0.5 mcg 0.5 mcg Oral DAILY 0.5 mcg at 04/06 0736 metoprolol tartrate (LOPRESSOR) tablet 25 mg 25 mg Oral BID 25 mg at 04/06 metoprolol (LOPRESSOR) injection 5 mg 5 mg Intravenous Q5MIN PRN foLIC acid (FOLATE) tablet 1 mg 1 mg Oral DAILY AT 1700 1 mg at 04/22/19 1730 magnesium oxide (MAG-OX 400) tablet 400 mg 400 mg Oral BID 400 mg at 04/06 multivitamin tablet 1 tablet 1 tablet Oral DAILY 1 tablet at 04/23/1936 traMADOL (ULTRAM) tablet 50 mg 50 mg Oral BIDPRN 50 mg at 04/23/19 2154 docusate (COLACE) capsule 100 mg 100 mg Oral BID 100 mg at 04/23/192040 ondansetron (ZOFRAN (PF)) injection 4 mg 4 mg Slow IV Push Q6HPRN Associated attestation - Emili Browning MD - 04/24/2019 10:44 AM CDT FACULTY NOTE - INTERNAL MEDICINE - [facility] After discussion with the medical team, I examined this patient on 04/24/2019. I actively participatedin the decision making process, and I agree with Dr. Banks's resident note as written. Please seethe resident's note for details. Hgb downtrending to 6.4. Will give 1 unit of PRBCs. Emili Browning MD [facility] heel stainerInventory Specialist Manager, Internal Medicine Pager: [phone] Poppy Banks MD - 04/23/2019 12:06 PM CDT [facility] Progress Note Date of Service: 04/23/2019 12:10 Chief Complaint: epigastric abdominal pain 24-HOUR EVENTS: - Admitted to [facility] from ICU - AFVSS SUBJECTIVE: Patient c/o epigastric abdominal pain. Due to patient's cognitive decline it is hard to obtain any details on that matter. PHYSICAL EXAM: Vitals: 04/23/19 0400 04/23/19 0600 04/23/19 0800 04/23/19 1000 BP: 120/62 117/70 118/64 139/57 Pulse: 65 64 66 71 Resp: 15 14 10 14 Temp: 36.5 C (97.7 F) 36 C (96.8 F) TempSrc: Tympanic Tympanic SpO2: 99% 98% 97% 100% Weight: Height: Intake/Output Summary (Last 24 hours) at 04/23/2019 1210 Last data filed at 04/23/2019 0600 Gross per 24 hour Intake 250 ml Output Net 250 ml General: alert and oriented x 3 Oral Cavity: bleeding from her gums Lungs: clear to auscultation bilaterally Cardio: S1, S2 normal; no murmurs Abdomen: soft; non-tender; non-distended; normoactive bowel sounds Skin: Scattered ecchymoses throughout the body, most prominent on the chest, perm cath oozing blood. 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) Toxic Metabolic Encephalopathy- resolving ESRD (newly declared, last HD was on 04/18) Dementia Paroxymal A.Fib w/ RVR, resolved HFpEF HTN Comment: Stable, normal sinus rhythm today Hypoglycemia 2/2 Chronic Prednisone use leading to AI Comment: Stable Plan: - Obtain KUB - Hold on Heparin - F/u heme and nephro PAIN: Not an active problem Prophylaxis:Contraindicated 2/2 HIT Stress Ulcer: no indication for prophylaxis Code Status: addressed: Full Poppy Banks MD PGY-1, Neurology [facility] Pager# [phone] HOSPITAL COURSE Will Ayesha is a 78 y.o female with PMH of ESRD (newly declared), CHFpEF, HTN, RA, gout and dementia who presents as a transfer from [facility] due to concerns of HIT. 4 T's score is 5 which puts patient at 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. HIT -Ab: Positive. Discussed case with Hematology fellow and they recommended initiating the HIT order set for Argatroban and resending HIT-AB and HIT with Serotonin Release Assay. Argatroban held this morning due to gum bleeding & oozing from perm cath site, discussed with Heme fellow & they are okay with stopping it. At dialysis unit, patient developed SOB andDOB 30 min into treatment activating Rapid Response. She received 4 L O2 via NC and then 9 L via simple face mask. ABG obtained, noted for slight CO2 retention and acidemia. Patient was scheduled to receive 1 U of pRBCs due to Hgb of 6.1, however, Rapid was called before transfusion. After 3 days in ICU, patient appears to be hemodynamically stable and could be transferred to Floor. Patient is oriented to person, but is no oriented to time and space. Patient does complain about abdominal pain. KUQ results are pending. CURRENT MEDICATIONS - reviewed. Current Facility-Administered Medications Medication Dose Route Frequency Last Rate Last Dose Polyethylene Glycol 3350 (MIRALAX) powder 17 g 17 g Oral BID hydrocortisone sod succ (CORTEF) 50 mg in NaCl 0.9% (NS) piggyback 50 mg IV Piggyback Q8H 50 mg at 04/23/19 0610 glucagon (GLUCAGEN DIAGNOSTIC KIT) injection 1 mg 1 mg Intramuscular PRN 1 mg at 04/20/19 1154 calcitriol (ROCALTROL) capsule 0.5 mcg 0.5 mcg Oral DAILY 0.5 mcg at 04/06 0736 metoprolol tartrate (LOPRESSOR) tablet 25 mg 25 mg Oral BID 25 mg at 03/066 metoprolol (LOPRESSOR) injection 5 mg 5 mg Intravenous Q5MIN PRN foLIC acid (FOLATE) tablet 1 mg 1 mg Oral DAILY AT 1700 1 mg at 04/22/19 1730 magnesium oxide (MAG-OX 400) tablet 400 mg 400 mg Oral BID 400 mg at 04/06 0736 multivitamin tablet 1 tablet 1 tablet Oral DAILY 1 tablet at 04/23/19 0736 traMADOL (ULTRAM) tablet 50 mg 50 mg Oral BIDPRN 50 mg at 04/21/19 1622 docusate (COLACE) capsule 100 mg 100 mg Oral BID 100 mg at 04/23/19 0800 ondansetron (ZOFRAN (PF)) injection 4 mg 4 mg Slow IV Push Q6HPRN Associated attestation - Emili Browning MD - 04/24/2019 10:44 AM CDT FACULTY NOTE - INTERNAL MEDICINE - [facility] [place] [facility] After discussion with the medical team, I examined this patient on 04/24/2019. I actively participatedin the decision making process, and I agree with Dr. Banks's resident note as written. Please seethe resident's note for details. 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 Alert but not oriented Ventilator Bundle: Stress ulcer prophylaxis: none DVT prophylaxis: contraindicated possible DIC Nutrition: oral Lines (with dates): 20 G Right Arm 20 G Right Distal arm HD tunneled cath Chiang: none Intake/Output: Intake/Output Summary (Last 24 hours) at 04/23/2019 0105 Last data filed at 04/22/2019 1700 Gross per 24 hour Intake 263 ml Output Net 263 ml Physical Exam: Temp: [36 C (96.8 F)-36.9 C (98.4 F)] Heart Rate (monitor): [66-84] Pulse: [65-84] Resp: [12-21] BP: (81-143)/(53-114) MAP (mmHg): [59-124] Constitutional: alert but not oriented, lethargic, but arousable; no apparent distress HEENT: pupils equal, round, reactive to light; extraocular movements intact; oropharynx clear; moistmucous membranes Resp: slight bibasilar crackles, no wheezing, no respiratory distress Cardio: S1, S2 normal; no murmurs, rubs or gallops, regular rate and rhythm GI: soft; non-tender; non-distended; normoactive bowel sounds MSK: sever RA, on the hands and fingers with deformities, no cyanosis or edema Integ: no rashes Neuro: lethargic but arousable Labs (pertinent only)/Imaging: AB.7 pH: 7.35 PCO2: 49 PO2: 162 HCO3: 27 FiO2: 28 Xr Chest 1 Vw Result Date: 04/21/2019 1. Stable position of right IJ dialysis catheter with the tip in the lower SVC. No pneumothorax. 2. Normal size cardiomediastinal silhouette with tortuous thoracic aorta. Bilateral hilar prominence andpulmonary vascular congestion. 3. Blunting of the right costophrenic angle suggestive of small pleural effusion or scarring.. Ct Chest Pulmonary Angiogram Result Date: 04/22/2019 1. No pulmonary embolism. 2. Acute to subacute mild compression deformity of the L1 vertebral body. I, Magda Centeno MD., have reviewed this study and agree with the above report. Xr Elbow <3 Vw Right Result Date: 04/21/2019 No acute bony abnormality. Mild soft tissue swelling. Punctate densities in the proximal posterior forearm soft tissues may represent soft tissue calcifications or foreign bodies. Elbow joint effusion.In the setting of trauma , an effusion may indicate occult fracture or internal derangement. Elbow and shoulder osteoarthrosis. Xr Humerus 2 Vw Right Result Date: 04/21/2019 No acute bony abnormality. Mild soft tissue swelling. Punctate densities in the proximal posterior forearm soft tissues may represent soft tissue calcifications or foreign bodies. Elbow joint effusion.In the setting of trauma , an effusion may indicate occult fracture or internal derangement. Elbow and shoulder osteoarthrosis. Xr Shoulder 2+ Vw Right Result Date: 04/21/2019 No acute bony abnormality. Mild soft tissue swelling. Punctate densities in the proximal posterior forearm soft tissues may represent soft tissue calcifications or foreign bodies. Elbow joint effusion.In the setting of trauma , an effusion may indicate occult fracture or internal derangement. Elbow and shoulder osteoarthrosis. Microbiology: Blood cx (04/21) :no growth at 24hrs, Assessment/Plan: Brandon Hodge is a 78 year old female admitted with Dyspnea Neuro Possible uremic encephalopathy Possible underlying dementiavs delirium Family states that baseline mentation is a&Ox2 since d/c from hospitalization several weeks ago.This could be new baseline. - attempt to restart HD initiation when possible - continue to monitor Resp Hypercapnic resp failure, resolving now SOB Unknown why patient is retaining CO2 at this time. Will r/o cardiac and pulm etiologies - f/u sputum culture - ABG prn - BiPAP as needed, on NC - monitor fluid status Cardiovascular Paroxymal A.Fib w/ RVR, resolved HFpEF HTN Stable. No acute issues - c/w lopressor 25mg BID FEN/GI N/a ID Leukocytosis No fevers at this time. Will panculture - f/u cx - monitor Renal ESRD (newly diagnosed) Hyponatremia Anuria - need to restart HD - C/w calcitriol - mag ox Endo Chronic steroid use Possible underlying adrenal insufficiency Comment:family states that patient was started on chronic steroids to help her breathing. States that she has been on it for yearsfrom her PCP. 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 Clarified later by Dr Zimmerman given low fibrinogen associated with coagulopathy. At this time, etiology is still unknown. Will recheck for infection as trigger vs malignancy vs other. Will transfuse Hgb to greater than 7 - panculture - will consider malignancy w/u - f/u heme recs - hold heparin and other AC products JOHN Head Neurology PGY-1 HOSPITAL COURSE Brandon Hodge is a 78 y.o female with PMH of ESRD (newly declared),CHFpEF,HTN , RA, gout and dementia who presents as a transfer from [facility] due to concerns of HIT. Possible TTF tomorrow, pending serotonin assay, and dialysis Associated attestation - Nini Brown DO - 04/23/2019 11:06 AM CDTI personally examined the patient on 04/23/[address] Tripp's resident note as written. I actively participated in the decision-making process. Please see the resident's note for additional details. 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 Internal Medicine PGY-2 [facility] Doctor #:[id number] Pager #:[phone] Nancy Jackson OT - 04/22/2019 10:34 AM CDT04/22/2019 10:35 OCCUPATIONAL THERAPY NOTE: Consult received, chart reviewed and OT eval attempted, however per RN patient is getting ready to go to procedure and then to HD. Will Hold today and attempt again next date STANLEY Gimenez Devin Carmen DO - 04/22/2019 10:21 AM CDT Hematology Progress Note Date: 04/22/2019 10:25 Reason for Consultation: Thrombocytopenia Subjective: Patient feeling well this morning. Does not know why she is in the ICU. States she remembers feelingbad yesterday but cannot explain how or why. Per chart, patient was noted to have acute shortness of breath while receiving dialysis. Oxygen saturations were unable to be recorded. ABG showed mild hypercarbia. She was transferred to MICU for non-invasive ventilation support and was weaned to nasal canula. She received 2 units of packed red bloodcells. PHYSICAL EXAMINATION: Vitals: 04/22/19 0700 04/22/19 0800 04/22/19 0900 04/22/19 1000 BP: 131/63 132/57 121/86 127/82 Pulse: 69 68 67 70 Resp: 15 12 12 17 Temp: 36.2 C (97.2 F) TempSrc: Tympanic SpO2: 98% 97% 100% 100% Weight: Height: General: alert, oriented x2 HEENT: ulcer on lower lip without signs of bleeding Lungs: bibasilar crackles, no chest pain with deep inspiration, not requiring supplemental O2 Cardio: regular rate and rhythm, no murmurs appreciated Abdomen: soft, non-tender, non-distended Extremities: no pitting edema or tenderness Neuro: No focal deficits Skin: Diffuse purpura, central line and IV sites with surround dried blood, no signs of pooling as prior Labs: Results for BRANDON HODGE ( ) as of 04/22/2019 10:50 Ref. Range 04/22/2019 00:21 PROTIME Latest Ref Range: 10.1 - 12.6 Seconds 13.6 (H) PT INR Latest Ref Range: 1.2 APTT Latest Ref Range: 26 - 36 Seconds 38 (H) FIBRINOGEN Latest Ref Range: 167 - 453 mg/dL 161 (L) Results for BRANDON HODGE ( ) as of 04/22/2019 10:50 Ref. Range 04/22/2019 00:21 HGB Latest Ref Range: 11.6 - 15.0 g/dL 7.6 (L) Results for BRANDON HODGE ( ) as of 04/22/2019 10:50 Ref. Range 04/22/2019 00:21 BASO STIPPLING Latest Ref Range: Present (A) POLYCHROMASIA Latest Ref Range: 2+ 2+ SCHISTOCYTES Latest Ref Range: 1+ (A) TARGET CELLS Latest Ref Range: (none) 2+ (A) Imagin. Stable position of right IJ dialysis catheter with the tip in the lower SVC. No pneumothorax. 2. Normal size cardiomediastinal silhouette with tortuous thoracic aorta. Bilateral hilar prominence and pulmonary vascular congestion. 3. Blunting of the right costophrenic angle suggestive of small pleural effusion or scarring.. Assessment/Plan Brandon Hodge is a 78 year old female with Acute respiratory distress Thrombocytopenia Anemia Consumptive coagulopathy Patient transferred to ICU for dyspnea during dialysis. There is concern for pulmonary embolism given her presentation and if positive will require anticoagulation with direct thrombin inhibitor or direct oral anticoagulants, prefer argatroban. Serotonin release assay still pending. Will continue to monitor. - Agree with CT to rule out pulmonary embolism - follow up on serotonin release assay The patient has been seen and discussed with Dr. Zimmerman. Please call with any questions. Devin Mccurdy D.O. Department of Internal Medicine PGY-1, [facility] Team Doctor's Number: [id number] Associated attestation - Julian Zimmerman MD - 04/22/2019 4:15 PM CDTHematology Faculty Progress Note I have seen and examined Ms. Brandon Hodge with Dr. Devin Mccurdy, an internal medicine resident currently assigned to the hematology service. I am in agreement with the observations, comments, and recommendations regarding Ms. Hodge as outlined in the most recent progress note written by Dr. Mccurdy. 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 Now we are awaiting results of further testing for thrombosis and for the serotonin releaseassay test results. Julian Zimmerman MD,FACP Flight Test Engineer in Hematology and Transfusion Medicine Assessment Counselor of the Blood Bank [facility] Ext: [phone] millard PTA - 04/22/2019 8: 53 AM CDTPTA NOTE: Per EPIC chart review this AM, patient transferred to MICU after rapid response during HD yesterday.Supervising PT notified and PT to hold at this time. Thank you. 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 Alert but not oriented Ventilator Bundle: Stress ulcer prophylaxis: none DVT prophylaxis: contraindicated; possible DIC Nutrition: NPO Lines (with dates): 20 G right arm 20 G right arm HD tunneled cath Chiang: None Intake/Output: Intake/Output Summary (Last 24 hours) at 04/22/2019 0148 Last data filed at 04/21/2019 1400 Gross per 24 hour Intake 679 ml Output Net 679 ml Physical Exam: Temp: [36 C (96.8 F)-36.7 C (98 F)] Heart Rate (monitor): [58-78] Pulse: [58-106] Resp: [11-23] BP: (96-154)/(43-91) MAP (mmHg): [69-95] Constitutional: alert but not oriented, lethargic but arousable HEENT: pupils equal, round, reactive to light; extraocular movements intact; oropharynx clear; moistmucous membranes, normocephalic atraumatic Resp: slight bibasilar crackles, no wheezing. No respiratory distress Cardio: S1, S2 normal; no murmurs, rubs or gallops, regular rate and rhythm GI: soft; non-tender; non-distended; normoactive bowel sounds MSK: no clubbing, cyanosis, or edema Integ: no rashes Neuro: lethargic but arousable Labs (pertinent only)/Imaging: Ddimer: >20.0 HIT-ab: positive Xr Chest 1 Vw Result Date: 04/21/2019 1. Stable position of right IJ dialysis catheter with the tip in the lower SVC. No pneumothorax. 2. Normal size cardiomediastinal silhouette with tortuous thoracic aorta. Bilateral hilar prominence andpulmonary vascular congestion. 3. Blunting of the right costophrenic angle suggestive of small pleural effusion or scarring.. Xr Elbow <3 Vw Right Result Date: 04/21/2019 No acute bony abnormality. Mild soft tissue swelling. Punctate densities in the proximal posterior forearm soft tissues may represent soft tissue calcifications or foreign bodies. Elbow joint effusion.In the setting of trauma , an effusion may indicate occult fracture or internal derangement. Elbow and shoulder osteoarthrosis. Xr Humerus 2 Vw Right Result Date: 04/21/2019 No acute bony abnormality. Mild soft tissue swelling. Punctate densities in the proximal posterior forearm soft tissues may represent soft tissue calcifications or foreign bodies. Elbow joint effusion.In the setting of trauma , an effusion may indicate occult fracture or internal derangement. Elbow and shoulder osteoarthrosis. Xr Shoulder 2+ Vw Right Result Date: 04/21/2019 No acute bony abnormality. Mild soft tissue swelling. Punctate densities in the proximal posterior forearm soft tissues may represent soft tissue calcifications or foreign bodies. Elbow joint effusion.In the setting of trauma , an effusion may indicate occult fracture or internal derangement. Elbow and shoulder osteoarthrosis. Microbiology: Blood cx (04/14): no growth Blood cx (04/21): pending Assessment/Plan: Brandon Hodge is a 78 year old female admitted with dyspnea Neuro Possible uremic encephalopathy Possible underlying dementia vs delirium Family states that baseline mentation is a&Ox2 since d/c from hospitalization several weeks ago. This could be new baseline. - attempt to restart HD initiation when possible - continue to monitor Resp Hypercapnic resp failure SOB Unknown why patient is retaining CO2 at this time. Will r/o cardiac and pulm etiologies - f/u sputum culture - ABG prn - BiPAP as needed, on NC - monitor fluid status Cardiovascular Paroxymal A.Fib w/ RVR, resolved HFpEF HTN Stable. No acute issues - c/w lopressor 25mg BID FEN/GI N/a ID Leukocytosis No fevers at this time. Will panculture - f/u cx - monitor Renal ESRD (newly diagnosed) Hyponatremia Anuria Pt unable to tolerate session of dialysis today. Will discuss with nephro for further recs. - f/u nephrology recc's - need to restart HD - C/w calcitriol - mag ox Endo Chronic steroid use Possible underlying adrenal insufficiency Comment:family states that patient was started on chronic steroids to help her breathing. States that she has been on it for years from her PCP. 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 Clarified later by Dr Zimmerman given low fibrinogen associated with coagulopathy. At this time, etiology is still unknown. Will recheck for infection as trigger vs malignancy vs other. Will transfuse Hgb to greater than 7 - panculture - will consider malignancy w/u - f/u heme recs - hold heparin and other AC products René Camacho DO Internal Medicine PGY-2 [facility] team Doctor # [id number] Kiran Balbuena MD - 04/21/2019 7:38 AM CDT PGY-1 [facility] Team Progress/Transfer Note Date of Service: 04/21/2019 07:39 Days Since Admission: 8 Chief Complaint: Chief Complaint Patient presents with Other "lab draw" Tremors 24-HOUR EVENTS: Rapid called in HD unit, [facility] Brandon Hodge is a 78 y.o female with PMH of ESRD (newly declared),CHFpEF,HTN , RA, gout and dementia who presents as a transfer from [facility] due to concerns of HIT. 4 T's score is 5 which puts patient at 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. HIT -Ab: Positive. Discussed case with Hematology fellow, who recommended initiating the HIT order set for Argatroban and resending HIT-AB and HIT with Serotonin Release Assay. Argatroban held the following morning due to gum bleeding & oozing from perm cath site. With further workup, however, Heme team favors DIC as diagnosis, given low fibrinogen associated withcoagulopathy. Fibrinogen on admission 89 and responsive to cryo infusion. Coagulopathy improving with withholding Argatroban and other anticoags. Patient was scheduled for dialysis on 04/21. At dialysis unit, patient developed SOB and 30 min into treatment activating Rapid Response. Shereceived 4 L O2 via NC and then 9 L via simple face mask. ABG obtained, noted for slight CO2 retention and acidemia. Patient was scheduled to receive 1 U of pRBCs due to Hgb of 6.1, however, Rapid was called before transfusion. SUBJECTIVE: Mrs. Hodge was sleepy in the morning and not answering questions. Rapid Response was called in Dialysis for SOB. OBJECTIVE: Vitals: reviewed Temp: [36.4 C (97.6 F)-36.8 C (98.3 F)] Pulse: [68-106] Resp: [18] BP: (93-126)/(43-87) MAP (mmHg): [59] O2: well sat Vitals: 04/20/19 1510 04/20/19 2029 04/20/19 2342 04/21/19 0418 BP: 110/64 109/69 116/87 113/66 Pulse: 69 72 80 106 Resp: 18 18 18 18 Temp: 36.8 C (98.2 F) 36.7 C (98.1 F) 36.8 C (98.3 F) 36.7 C (98 F) TempSrc: Oral Oral Axillary Axillary SpO2: 95% 96% 99% 100% Weight: 96 kg (211 lb 9.6 oz) Height: Intake/Output: Intake/Output Summary (Last 24 hours) at 04/21/2019 0739 Last data filed at 04/21/2019 0600 Gross per 24 hour Intake 470 ml Output Net 470 ml Physical Exam: Physical Exam Constitutional: Somnolent in train crew member. Obese female sleeping on bed. HENT: Head: Normocephalic and atraumatic. Neck: Normal range of motion. Cardiovascular: Normal rate, regular rhythm, normal heart sounds and intact distal pulses. Pulmonary/Chest: Effort normal and breath sounds normal. Brushing on anterior chest wall. Oozing stopped at Perm cath. Sacral ulcer well- dressed, does not look bad. Abdominal: Soft. Bowel sounds are normal. She exhibits no distension. Musculoskeletal: Hematoma noticed are right antecubital area. Rheumatoid nodules noticed on elbows and fingers LABS/IMAGING - reviewed, pertinent results as below: Recent Labs 04/19/19 0429 04/19/19 1622 04/20/19 0250 04/20/19 1206 04/21/19 0356 04/21/19 0922 WBC 13.64* -- 13.22* 13.05* 14.29* 13.67* HGB 6.3* 9.0* 7.8* 7.1* 6.1* 5.9* HCT 18.6* -- 22.6* 20.9* 18.5* 17.9* PLT 56* -- 52* 53* 58* 56* Recent Labs 04/18/19 1248 04/19/19 0428 04/21/19 035 NA -- 132* 127* K -- 3.7 4.5 CL -- 98 96* TCO2 -- 29 27 AGAP -- 5 4 BUN -- 31* 46* CREAT -- 2.77* 2.83* CA -- 7.8* 7.5* MG 1.5* -- 2.0 GLU -- 73 79 ALB -- 2.3* -- Recent Labs 04/13/19 1046 04/15/19 0747 04/16/19 0434 04/18/19 0446 04/19/19 04204/20/19 0249 04/21/19 035 ALB 3.1* 2.7* 2.6* 2.8* 2.3* -- -- TPRO 6.3 5.6* 5.6* 5.7* 4.7* -- -- BILIT 0.8 0.8 1.0 1.1 1.2* 1.5* -- BILIUNCON -- -- -- 0.9 -- -- -- BILICONJ -- -- -- 0.0 -- -- -- ALT 42 37 34 28 29 30 30 AST 40 30 32 26 23 30 28 ALKPHOS 52 48 48 50 44 -- -- Recent Labs 04/18/19 1502 04/19/19 0428 04/20/19 0249 04/20/19 1204 04/20/19 1206 04/21/19 0356 04/21/19 0922 PTINR 1.3 1.3 1.2 -- -- -- -- PTPAT 15.9* 15.6* 13.1* -- -- -- -- APTTPAT 54* 34 24* 81* 79* 31 40* PH (no units) Date Value 04/21/2019 7.37 PCO2 (mmHg) Date Value 04/21/2019 50 (H) PO2 (mmHg) Date Value 04/21/2019 461 (H) %O2HB (%) Date Value 04/21/2019 97.3 NA (mmol/L) Date Value 04/21/2019 128 (L) K+ (mmol/L) Date Value 04/21/2019 3.9 AC CA IONZ (mg/dL) Date Value 04/21/2019 4.50 ASSESSMENT/PLAN Will Zack Hodge is a 78 year old female admitted to the hospital with: 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 Patient presented withgum bleeding and oozing perm cath site and previous IV site and ecchymosis throughout her body. Heme followed patient. Dx of DIC more favorable given low fibrinogen associated with coagulopathy. Fibrinogen on admission 89 and responsive to cryo infusion. Coagulopathy improving with withholding Argatroban and other anticoags. - Etiology: still undetermined -Holding Argatroban -F/u Heme Recs -F/u Nephro Recs -No Heparin or Warfarin Products - Follow up on Serotonin Release Assay - Follow up on UA and Ucx; Wounds don't look bad Hemolytic anemia, acute: - 2/2 DIC - Hgb /, transfuse 1 u pRBC - H/H Toxic Metabolic Encephalopathy- resolving ESRD (newly declared, last HD was on 04/18) Dementia Comment: patient currently with gum bleeding & oozing from perm cath site as well as previous IVsite & ecchymosis throughout her body. Discussed with Heme Fellow & they are okay with holding argatroban for now. Nephro consulted for HD needs as well. - HD today Paroxymal A.Fib w/ RVR, resolved HFpEF HTN Comment: Stable, normal sinus rhythm today -C/w telemetry -C/w Lopressor 25mg BID Hypoglycemia 2/2 Chronic Prednisone use leading to AI Comment: Stable -C/w Prednisone 10mg daily PAIN: Not an active problem Prophylaxis:Contraindicated 2/2 HIT Stress Ulcer: no indication for prophylaxis Code Status: addressed: Full DISPOSITION Anticipated Discharge Date: tbd Discharge To: home Barriers to Discharge: clinical improvement Kiran Franklin M.D. Department of Internal Medicine PGY1[facility] Team Pager's Number: [phone] END OF DAILY PROGRESS NOTE CURRENT MEDICATIONS - reviewed. Current Facility-Administered Medications Medication Dose Route Frequency Last Rate Last Dose sodium citrate anticoagulant 4 gram /100 mL (4 %) injection 5 mL 5 mL Catheter Dwell DIALYSIS ONCE - [place] DSU glucagon (GLUCAGEN DIAGNOSTIC KIT) injection 1 mg 1 mg Intramuscular PRN 1 mg at 04/20/19 1154 calcitriol (ROCALTROL) capsule 0.5 mcg 0.5 mcg Oral DAILY 0.5 mcg at 01/04 metoprolol tartrate (LOPRESSOR) tablet 25 mg 25 mg Oral BID 25 mg at 01/04 metoprolol (LOPRESSOR) injection 5 mg 5 mg Intravenous Q5MIN PRN foLIC acid (FOLATE) tablet 1 mg 1 mg Oral DAILY AT 1700 1 mg at 04/19/19 1733 predniSONE (DELTASONE) tablet 10 mg 10 mg Oral DAILY 10 mg at 04/20/191006 magnesium oxide (MAG-OX 400) tablet 400 mg 400 mg Oral BID 400 mg at 01/04 multivitamin tablet 1 tablet 1 tablet Oral DAILY 1 tablet at 04/20/191006 traMADOL (ULTRAM) tablet 50 mg 50 mg Oral BIDPRN 50 mg at 04/15/19 1828 docusate (COLACE) capsule 100 mg 100 mg Oral BID 100 mg at 04/20/192120 ondansetron (ZOFRAN (PF)) injection 4 mg 4 mg Slow IV Push Q6HPRN Associated attestation - Emili Browning MD - 04/22/2019 12:54 PM CDTFACULTY NOTE - INTERNAL MEDICINE - The [facility] Team After discussion with the medical team, I examined this patient on 04/21/2019. I actively participatedin the decision making process, and I agree with Dr. Franklin' s resident note as written. Please see theresident's note for details. Emili Browning MD [facility] heel stainerInventory Specialist Manager, Internal Medicine Pager: [phone] Lali Hernández RN - 04/20/2019 2:41 PM CDTCare Management Note Pt not likely to dc until Thursday, no HD today and VAS consult for PICC line. Katlyn Hernández RN, BSN Care Coordinator 2: 53 PM CDTRLali barrera RN - 04/20/2019 12:53 PM CDTCare Management Note CM contacted [address] (P ) [phone] (F) [phone]. CM left message to have nursing call back. CM faxed updated clinical to [facility]. Await cb from [facility]. 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 Please aid in management of her HD. Consult By: Jerica Martinez MD CC: AMS , bleeding HPI: Brandon Hodge is a 78 year old female with PMH of ESRD (newly declared), CHFpEF , HTN, RA, gout and dementia who presents as a transfer from [facility] due to concerns of Heparin Induced Thrombocytopenia. Patient was initially admitted on 04/13/19 due to AMS, lethargy, decreased PO intake. She was noted to have worsening in her kidney function with symptomatic uremia so it was decided to pursue dialysis.Permcath placed on 04/14/19 and first round of HD was initiated. Platelet count noted to drop on 04/16and diffuse ecchymoses were noted. Low Fibrinogen at 83, D-dimer >20. She received 2 units of cryoprecipitated with improvement in fibrinogen level. Hgb down-trended to 6.3 with positive FOBT test. Received 1 unit of pRBC and Hgb improved to 9.0 She was started on IV pantoprazole due to suspicion of melena but was then d/c due to possible PPI-related thrombocytopenia and no melena. LDH elevated at 1015. HIT-Ab: positive. Last HD was 04/18/19. During HD, patient went into Rapid Afib and thus HD hadto be aborted. No heparin-free solution available at [facility] for HD thus patient was transferred to for further management. Patient seen and examined today , she Denies fever, chills, chest pain, SOB, abdominal pain or dysuria. ROS A 12 point ROS was done pertinent positives have been discussed in HPI ,other review of system is negative. Past Medical History: Diagnosis Date Altered mental status CHF (congestive heart failure) CKD (chronic kidney disease) Gout HTN (hypertension) RA (rheumatoid arthritis) Past Surgical History: Procedure Laterality Date CHOLECYSTECTOMY unknown date Social History Tobacco Use Smoking status: Never Smoker Smokeless tobacco: Never Used Substance Use Topics Alcohol use: Not Currently Drug use: Not on file Family History Problem Relation Age of Onset Breast Cancer Mother Hypertension Father No Known Allergies Medications: Current Facility-Administered Medications Medication Dose Route Frequency Last Rate Last Dose dextrose 10% (D10W) bolus infusion 250 mL 250 mL IV Infusion ONCE glucagon (GLUCAGEN DIAGNOSTIC KIT) injection 1 mg 1 mg Intramuscular PRN 1 mg at 04/20/19 1154 sodium citrate anticoagulant 4 gram /100 mL (4 %) injection 5 mL 5 mL Catheter Dwell ONCE argatroban 250 mg in NaCl 0.9% (NS) infusion 2 mcg/kg/min IV Infusion CONTINUOUS Stopped at 04/20/19 0805 calcitriol (ROCALTROL) capsule 0.5 mcg 0.5 mcg Oral DAILY 0.5 mcg at 01/04 metoprolol tartrate (LOPRESSOR) tablet 25 mg 25 mg Oral BID 25 mg at 01/04 metoprolol (LOPRESSOR) injection 5 mg 5 mg Intravenous Q5MIN PRN foLIC acid (FOLATE) tablet 1 mg 1 mg Oral DAILY AT 1700 1 mg at 04/19/19 1733 predniSONE (DELTASONE) tablet 10 mg 10 mg Oral DAILY 10 mg at 04/20/191006 magnesium oxide (MAG-OX 400) tablet 400 mg 400 mg Oral BID 400 mg at 01/04 multivitamin tablet 1 tablet 1 tablet Oral DAILY 1 tablet at 04/20/191006 traMADOL (ULTRAM) tablet 50 mg 50 mg Oral BIDPRN 50 mg at 04/15/19 1828 docusate (COLACE) capsule 100 mg 100 mg Oral BID 100 mg at 04/20/19 1007 ondansetron (ZOFRAN (PF)) injection 4 mg 4 mg Slow IV Push Q6HPRN No current facility-administered medications on file prior to encounter. Current Outpatient Medications on File Prior to Encounter Medication Sig Dispense Refill allopurinol 100 mg tablet Take 100 mg by mouth daily. famotidine 40 mg tablet Take 40 mg by mouth daily. FLUoxetine 20 mg capsule Take 20 mg by mouth daily. gabapentin 100 mg capsule Take 100 mg by mouth 3 (three) times daily. metoprolol succinate 50 mg CSpX Take by mouth. predniSONE 10 mg tablet Take 10 mg by mouth daily. sodium bicarbonate 650 mg tablet Take 650 mg by mouth daily. Physical Exam BP: (93-148)/(43-83) Temp: [36.4 C (97.6 F)-36.8 C (98.3 F)] Temp source: Oral (04/20 1116) Pulse: [67-80] Resp: [17-18] SpO2: [94 %-100 %] Height: [160 cm (5' 3")] Weight: [95 kg (209 lb 6.4 oz)] Wt Readings from Last 3 Encounters: 04/20/19 95 kg (209 lb 6.4 oz) Intake/Output Summary (Last 24 hours) at 04/20/2019 1157 Last data filed at 04/20/2019 1100 Gross per 24 hour Intake 368 ml Output Net 368 ml General: no acute distress and alert oriented x2, Bleeding perm cath Cardiovascular: Heart regular, rate, rhythm, no murmurs; no edema Respiratory: clear to ascultation, no respiratory distress, GI: abd soft, non-tender, non-distended, +BS. Skin: intact and warm, dry Neuro: alert, oriented x2, Access: Perm cath Labs: Cell count Recent Labs 04/18/19 0446 04/19/19 0429 04/19/19 1622 04/20/19 0250 WBC 15.05* 13.64* -- 13.22* HGB 7.8* 6.3* 9.0* 7.8* MCV 99.1* 98.9* -- 93.8 PLT 71* 56* -- 52* Chemistry Recent Labs 04/18/196 04/18/19 1248 04/19/19 0428 NA 133* -- 132* K 3.8 -- 3.7 CL 99 -- 98 TCO2 24 -- 29 CREAT 3.51* -- 2.77* GLU 81 -- 73 MG -- 1.5* -- CA 8.2* -- 7.8* Coagulation Profile Recent Labs 04/18/19 1502 04/19/19 0428 04/20/19 0249 PTPAT 15.9* 15.6* 13.1* PTINR 1.3 1.3 1.2 APTTPAT 54* 34 24* LFTs Recent Labs 04/18/1944504/19/19 0428 04/20/19 0249 AST 26 23 30 ALT 28 29 30 ALKPHOS 50 44 -- BILIT 1.1 1.2* 1.5* BILICONJ 0.0 -- -- BILIUNCON 0.9 -- -- Arterial Blood Gas No results for input(s): ACPH, ACPCO2, ACPO2, ACHCO3, ACNA, ACK, ACCAIONZ, ACBE in the last 72 hours. Urinalysis No results for input(s): UPROTEIN, UGLUCOSE, UKETONES, UBILI, UBLOOD, UUROBILIN , ULEUKEST, UNITRITE,USPGRAV in the last 72 hours. No results for input(s): CK in the last 72 hours. No results found for: VANCOT No results found for: PTHINTACT No results found for: FERRITIN No results found for: FESAT Assessment and Plan: ESRD on H.D through perm cath Anemia of chronic disease CKD-MBD HTN CAD CHF HIT Plan: ESRD : There is no urgent needs for dialysis today and the patient perm cath still oozing blood at the insertion site We will do HD tomorrow after stabilizing the patient We will assess for the need of dialysis on a daily basis Please give dialysis adjusted doses of medications We will renally dose meds and use phosphate binders with meals. Patient doesn't know her dry wt , will try to establish dry wt for her HTN: We agree with the HTN medications . Anemia of chronic disease: Please order : s. Ferritin, iron sat., s.iron levels We will administer epogen for anemia of <10g/dl. Agree on blood transfusion if needed Metabolic bone disease: Please order : s.Mg, iPTH, VIT.D3 levels Others: We recommend following recommendation of hematology regarding HIT and bleeding control And regarding access we want to preserve the current perm cath for dialysis only And if another access needed then please go for yobany or perm cath instead of picc or mid lines topreserve the vasculature of the arms Other medical issues as per primary team. Patient seen, examined and discussed with attending lease examiner Dr. Crispin Galvan MD. PGY-4 Nephrology Fellow. [phone] Associated attestation - Mikel Roa MD - 04/27/2019 1:[address] discussion with Dr. cavanaugh, I examined this patient. I agree with Fellow/ resident's note as written. MIKEL ROA MD Inventory Specialist Manager Transplant Nephrology Division of Nephrology and Hypertension. [facility]. Estefanía Black - 04/20/2019 10:55 AM CDT MEDICAL NUTRITION THERAPY - Follow Up I have reviewed the comprehensive progress notes dated today as well as additional physician and allied health provider notes and EPIC information for an understanding of the patient's current medical condition and plans for further treatment and care. 78 year old female with PMH of ESRD (newly declared - first session 04/16), CHFpEF,HTN, RA, gout and dementia who presents as a transfer from [facility] due to concerns of HIT. 4 T's score is 5 which puts patient at 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. HIT-Ab: Positive. Discussed case with Hematology fellow and they recommended initiating the HIT order set for Argatroban and resending HIT- AB and HIT with Serotonin Release Assay. Argatroban held this morning due to gum bleeding & oozing from perm cath site, discussed with Heme fellow & they are okay with stopping it per Dr. Martinez's note on 04/20. Diet Order: (04/20) Regular Diet, Mechanical Soft texture with swallow precautions Documented Food Allergies/Intolerance/Cultural Preferences: None GI and Nutrition Related Findings: Spoke with patient, PCT at bedside. Information provided by patient suspect as she is confused and has a history of dementia. Pt reports appetite is fair, states she has been eating "ok". She denies N/V/D/C. She denies chewing/swallowing problems but dentition appears very poor. Nurse reports gums bleeding this morning. Pt reports she has not had oral supplements in the past but would like to try chocolate and vanilla supplements if offered. She is unsure ofusual weight 200-something per patient. PO intake: ~50% of meals per nursing documentation +BM x2 past 24 hours UOP anuric Last HD 04/18 UF 1000 mL General: Edema: 1+ generalized, 3+ TABATHA foot, leg Wounds: + sx wound R chest; Stage I mid sacrum; Stage II posterior knee Pertinent Medications: Noted. Includes: Calcitriol, Colace BID, Folate, Mag Ox BID, MVi, IV Zofran PRN, Prednisone Labs and Medical Test Results: Reviewed. FSBS: 69-100 mg/dL Results for BRANDON HODGE ( ) as of 04/20/2019 10:56 04/17/2019 05:22 04/18/2019 12:48 04/19/2019 04:28 04/20/2019 02:49 NA 135 132 (L) K 4.1 3.7 CL 101 98 CO2 TOTAL 27 29 AGAP 7 5 BUN 41 (H) 31 (H) GLUCOSE 104 73 CREATININE 2.89 (H) 2.77 (H) eGFR CALCULATION () 19.1 20.1 TOTAL BILI 1.2 (H) 1.5 (H) BILI UNCON BILI CONJ CALCIUM 8.3 (L) 7.8 (L) MAGNESIUM 1.5 (L) T PROTEIN 4.7 (L) ALBUMIN 2.3 (L) PROCALCI CH50 ALK PHOS 44 ALT(SGPT) 29 30 AST(SGOT) 23 30 LDH Anthropometrics: Height: 5' 3" Weight: 209.4 lbs (95 kg) Body mass index is 37.09 kg/m. IBW: 140.5 lbs (63.7 kg) at BMI 24.9 kg/m^2 %IBW: 149% UBW: unknown Admit Weight: 280 lbs (127 kg) NUTRITION DIAGNOSIS: 1) Inadequate protein-energy intake related to decreased ability to consume sufficient protein and/or energy as evidenced by PO intake meeting 50% or less of estimated needs for the past 7 days. NUTRITION INTERVENTIONS: 1) Continue liberalized diet to promote PO intake as tolerated. - Renal diet appears unnecessary at this time as K, Phos WNL and patient with poor intake. 2) Recommend speech therapy consult if patient exhibiting s/sx of aspiration with PO intake. 3) Recommend ONS TID (e.g. 2 Vanilla Nepro and 1 Chocolate Ensure Enlive daily) to promote adequate intake. 4) Please discontinue regular Multivitamin - fat soluble vitamin supplementation not recommended in ESRD patients (Vit A can accumulate). Suggest NephroVite once daily. Goal(s): 1) The patient will be able to consume 75% of all meals without any intolerances during this admission. MONITORING/EVALUATION: - RD to continue following with Nephrology team to review pt's progress, report nutrition related information, and to revise the recommended nutrition intervention(s) if necessary; please call with questions or concerns Anticipated Discharge Needs: None identified at this time. Estefanía Black, MS, RD, BLUEPRINT MACHINE OPERATOR, LD Nephrology Dietitian Pager: [phone] signed by Estefanía Black at 04/20/2019 11: 23 AM Jerica Carpenter MD - 04/20/2019 7:21 AM CDT PGY- 2 Medicine Progress Note Date of Service: 04/20/2019 08:43 Chief Complaint: Chief Complaint Patient presents with Other "lab draw" Tremors 24-HOUR EVENTS: Tele:NSR, PACs, Trending 60-'s-70's -Admitted to [place] Team -Heme consulted & patient started on Argatroban overnight SUBJECTIVE: Patient reports that she feels "dirtey" due to her oozing blood from her gums & amp; her perm cath, denies any SOB, CP, abdominal pain, N/V. Denies having a BM yet. PHYSICAL EXAM: Vitals: 04/19/19 1627 04/19/19 2127 04/19/19 2345 04/20/19 0510 BP: (!) 148/77 (!) 143/66 (!) 142/69 (!) 140/83 Pulse: 74 80 71 67 Resp: 18 18 Temp: 36.8 C (98.3 F) 36.5 C (97.7 F) 36.5 C (97.7 F) 36.4 C ( 97.6 F) TempSrc: Oral Oral Oral Oral SpO2: 94% 100% 100% 100% Weight: 95 kg (209 lb 6.4 oz) 95 kg (209 lb 6.4 oz) Height: 1.6 m (5' 3") Intake/Output Summary (Last 24 hours) at 04/20/2019 0843 Last data filed at 04/20/2019 0550 Gross per 24 hour Intake 318 ml Output Net 318 ml General: alert and oriented x 3 Oral Cavity: bleeding from her gums Lungs: clear to auscultation bilaterally Cardio: S1, S2 normal; no murmurs Abdomen: soft; non-tender; non-distended; normoactive bowel sounds Skin: Scattered ecchymoses throughout the body, most prominent on the chest, perm cath oozing blood. 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) Toxic Metabolic Encephalopathy- resolving ESRD (newly declared, last HD was on 04/18) Dementia Comment: patient currently with gum bleeding & oozing from perm cath site as well as previous IVsite & ecchymosis throughout her body. Discussed with Heme Fellow & they are okay with holding argatroban for now. Nephro consulted for HD needs as well Plan: -Holding Argatroban -F/u Heme Recs -F/u Nephro Recs -No Heparin or Warfarin Products Paroxymal A.Fib w/ RVR, resolved HFpEF HTN Comment: Stable, normal sinus rhythm today Plan: -C/w telemetry -C/w Lopressor 25mg BID Hypoglycemia 2/2 Chronic Prednisone use leading to AI Comment: Stable Plan: -C/w Prednisone 10mg daily PAIN: Not an active problem Prophylaxis:Contraindicated 2/2 HIT Stress Ulcer: no indication for prophylaxis Code Status: addressed: Full Jerica Aboueisha, MD Internal Medicine PGY-2 [place] Team Doctor# [id number] END OF DAILY PROGRESS NOTE HOSPITAL COURSE Brandon Hodge is a 78 y.o female with PMH of ESRD (newly declared), CHFpEF, HTN, RA, gout and dementia who presents as a transfer from [facility] due to concerns of HIT. 4 T's score is 5 which puts patient at 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. HIT -Ab: Positive. Discussed case with Hematology fellow and they recommended initiating the HIT order set for Argatroban and resending HIT-AB and HIT with Serotonin Release Assay. Argatroban held this morning due to gum bleeding & oozing from perm cath site, discussed with Heme fellow & they are okay with stopping it. Discharge Planning: - CURRENT MEDICATIONS - reviewed. Current Facility-Administered Medications Medication Dose Route Frequency Last Rate Last Dose argatroban 250 mg in NaCl 0.9% (NS) infusion 2 mcg/kg/min IV Infusion CONTINUOUS Stopped at 04/20/19 0805 calcitriol (ROCALTROL) capsule 0.5 mcg 0.5 mcg Oral DAILY 0.5 mcg at 12/07 2311 metoprolol tartrate (LOPRESSOR) tablet 25 mg 25 mg Oral BID 25 mg at 12/07 2311 metoprolol (LOPRESSOR) injection 5 mg 5 mg Intravenous Q5MIN PRN foLIC acid (FOLATE) tablet 1 mg 1 mg Oral DAILY AT 1700 1 mg at 04/19/19 1733 predniSONE (DELTASONE) tablet 10 mg 10 mg Oral DAILY 10 mg at 04/19/19 0916 magnesium oxide (MAG-OX 400) tablet 400 mg 400 mg Oral BID 400 mg at 12/07 2311 multivitamin tablet 1 tablet 1 tablet Oral DAILY 1 tablet at 04/19/19 0916 traMADOL (ULTRAM) tablet 50 mg 50 mg Oral BIDPRN 50 mg at 04/15/19 1828 docusate (COLACE) capsule 100 mg 100 mg Oral BID 100 mg at 04/19/19 2311 ondansetron (ZOFRAN (PF)) injection 4 mg 4 mg Slow IV Push Q6HPRN Associated attestation - Emili Browning MD - 04/20/2019 4:41 PM CDT FACULTY NOTE - INTERNAL MEDICINE - [facility] Team After discussion with the medical team, I examined this patient on 04/20/2019. I actively participatedin the decision making process, and I agree with Dr. Martinez's resident note as written. Please see the resident's note for details. Emili Browning MD [employer] [facility] heel stainerInventory Specialist Manager, Internal Medicine Pager: [phone] Keli Napier, DO - 04/19/2019 4:00 PM CDT Nephrology Progress Note Admit Date: 04/13/2019 Episode of rapid atrial fibrillation yesterday at the end of dialysis. Worsening bleeding and ecchymoses. Limited IH/ ROS due to AMS. Waxing and waning AMS. Vitals and medications reviewed in the chart. Blood work and imaging reviewed in the chart. Gen: NAD HEENT: NCAT. MMM. Neck: Supple. No LAD. Lungs: CTA CVS: RRR Abd: Soft. NT. +BS Ext: No C/C. Hip Edema trace Skin: Scattered ecchymoses. Psych: Mental status waxing and waning. Neuro: No speech. A/ Will Zack Hodge is a 78 year old female ESRD. CVC placed and HD initiated [id number]. Hyponatremia. Hypocalcemia. Diastolic CHF, A/C. Pulmonary HTN. Moderate TR. Paroxysmal Afib. HTN with CKD/ CHF. Gout. Acute cystitis. Toxic metabolic encephalopathy. DIC. HIT. P/ Continue current POC and Medications other than the changes below. Will order acute dialysis as needed. Continue prednisone. No heparin. Transfuse PRBC as needed. Maintain nutrition as tolerated. No NSAIDs. AM labs. Daily weight. Case discussed with Dr. Bill. Plan to transfer to [place] for higher level of care. Patient Vitals for the past 24 hrs: BP Temp Temp src Pulse Resp SpO2 Weight 04/14/19 1707 (!) 110/91 36.4 C (97.5 F) Axillary 76 16 99.5 kg (219 lb 5.7 oz) 04/14/19 1705 (!) 106/94 04/14/19 1700 (!) 134/99 75 04/14/19 1630 (!) 120/94 75 04/14/19 1600 122/70 36.8 C (98.3 F) Axillary 65 13 97 % 04/14/19 1535 112/81 04/14/19 1530 97/62 73 04/14/19 1500 (!) 141/93 71 04/14/19 1458 109/85 70 04/14/19 1450 118/75 68 15 99.8 kg (220 lb 0.3 oz) 04/14/19 1412 (!) 146/99 12 04/14/19 1407 104/77 68 12 90 % 04/14/19 1406 95 % 04/14/19 1404 94 % 04/14/19 1402 119/85 68 12 94 % 04/14/19 1400 126/72 72 12 94 % 04/14/19 1351 96 % 04/14/19 1350 126/86 88 12 98 % 04/14/19 1345 136/82 97 12 96 % 04/14/19 1342 (!) 149/85 73 12 98 % 04/14/19 1341 96 % 04/14/19 1340 97 % 04/14/19 1339 97 % 04/14/19 1331 (!) 145/56 36.1 C (97 F) TEMPORAL ART 92 12 90 % 04/14/19 1105 127/77 36.4 C (97.6 F) TEMPORAL ART 66 12 98 % 04/14/19 1010 (!) 142/98 20 100.7 kg (222 lb) 04/14/19 1005 (!) 144/98 20 04/14/19 1000 20 04/14/19 0800 (!) 167/134 35.7 C (96.3 F) Axillary 66 11 91 % 04/14/19 0720 16 96 % 04/14/19 0600 (!) 159/88 67 9 92 % 04/14/19 0500 (!) 128/101 72 04/14/19 0400 (!) 149/68 36.6 C (97.8 F) Axillary 68 15 94 % 04/14/19 0220 (!) 142/97 69 21 04/14/19 0211 (!) 168/100 15 95 % 04/14/19 0030 128/83 36.1 C (96.9 F) Axillary 70 22 93 % 04/14/19 0025 128/83 70 24 100 % 04/13/19 2200 (!) 121/95 66 11 96 % 04/13/19 2100 (!) 105/91 35.8 C (96.5 F) Axillary 156 12 98 % 04/13/19 2000 92/70 106 13 96 % Intake/Output Summary (Last 24 hours) at 04/14/2019 1801 Last data filed at 04/14/2019 1714 Gross per 24 hour Intake 100 ml Output 950 ml Net -850 ml CBC BMP PT/INR WBC (10*3/L) Date Value 04/19/2019 13.64 (H) NA (mmol/L) Date Value 04/19/2019 132 (L) No results found for: PT RBC (10*6/L) Date Value 04/19/2019 1.88 (L) K (mmol/L) Date Value 04/19/2019 3.7 INR (no units) Date Value 04/19/2019 1.3 PLT (10*3/L) Date Value 04/19/2019 56 (L) CALCIUM (mg/dL) Date Value 04/19/2019 7.8 (L) HGB (g/dL) Date Value 04/19/2019 9.0 (L) CL (mmol/L) Date Value 04/19/2019 98 aPTT HCT (%) Date Value 04/19/2019 18.6 (L) BUN (mg/dL) Date Value 04/19/2019 31 (H) APTT Patient (Seconds) Date Value 04/19/2019 34 CREATININE (mg/dL) Date Value 04/19/2019 2.77 (H) Us Retroperitoneal Complete Result Date: 04/13/2019 Echogenic kidneys, compatible with medical renal disease. I, Randy Segal MD. , have reviewed thisstudy and agree with the above report. Current Facility-Administered Medications Medication Dose Route Frequency Last Rate Last Dose metoprolol tartrate (LOPRESSOR) tablet 25 mg 25 mg Oral BID Stopped at 915 metoprolol (LOPRESSOR) injection 5 mg 5 mg Intravenous Q5MIN PRN foLIC acid (FOLATE) tablet 1 mg 1 mg Oral DAILY AT 1700 1 mg at 04/19/19 1733 predniSONE (DELTASONE) tablet 10 mg 10 mg Oral DAILY 10 mg at 04/19/19915 magnesium oxide (MAG-OX 400) tablet 400 mg 400 mg Oral BID 400 mg at 12/07 multivitamin tablet 1 tablet 1 tablet Oral DAILY 1 tablet at 04/19/19915 traMADOL (ULTRAM) tablet 50 mg 50 mg Oral BIDPRN 50 mg at 04/15/191827 docusate (COLACE) capsule 100 mg 100 mg Oral BID 100 mg at 04/19/19915 ondansetron (ZOFRAN (PF)) injection 4 mg 4 mg Slow IV Push Q6HPRN Current Facility-Administered Medications: metoprolol tartrate (LOPRESSOR) tablet 25 mg, 25 mg, Oral, BID, Antonio Bill MD, Stopped at04/19/19915 metoprolol (LOPRESSOR) injection 5 mg, 5 mg, Intravenous, Q5MIN PRN, Antonio Bill MD foLIC acid (FOLATE) tablet 1 mg, 1 mg, Oral, DAILY AT 1700, Aglieco, Keli G, DO, 1 mg at 04/19/19 173 predniSONE (DELTASONE) tablet 10 mg, 10 mg, Oral, DAILY, Antonio Bill MD, 10 mg at magnesium oxide (MAG-OX 400) tablet 400 mg, 400 mg, Oral, BID, Alex Diaz MD, 400 mg at 04/19/19915 multivitamin tablet 1 tablet, 1 tablet, Oral, DAILY, Aglieco, Keli G, DO, 1 tablet at traMADOL (ULTRAM) tablet 50 mg, 50 mg, Oral, BIDPRN, Alex Diaz MD, 50 mg at 04/15/191827 docusate (COLACE) capsule 100 mg, 100 mg, Oral, BID, Alex Diaz MD, 100 mg at 04/19/19 0916 ondansetron (ZOFRAN (PF)) injection 4 mg, 4 mg, Slow IV Push, Q6HPRN, Alex Diaz MD Greater than 30 min patient care. NDATCkarlene, MD Jennifer - 04/19/2019 2:28 PM CDT [facility] Cardiology progress note Date of Service: 04/18/2019 Brandon Hodge is a 78 years old female hospitalized for AMS. On 04/18/2019 she went into rapid Afib with palpitations. It lasted around 10 mins and then resolved. PHYSICAL EXAM Vitals: 04/19/19 0716 04/19/19 0925 04/19/19 0950 04/19/19 1130 BP: (!) 106/92 99/83 126/59 135/63 Pulse: 80 71 70 70 Resp: 18 18 18 18 Temp: 36.1 C (97 F) 36.5 C (97.7 F) 36.7 C (98.1 F) 36.7 C (98 F ) TempSrc: Oral Oral Oral Oral SpO2: 92% 93% 95% 97% Weight: General: no apparent distress HEENT: normocephalic atraumatic Neck: supple, no lymphadenopathy, no bruits, no JVD Lungs: clear to auscultation bilaterally Cardio: S1, S2, regular; no murmurs, rubs or gallops Abdomen: non-distended : not examined Rectal: not examined Extremities: no clubbing, cyanosis, or edema Skin: no rashes Neuro: no focal deficits Medications: I have reviewed the patient's medications; see Medication Reconciliation. Labs: I have reviewed the patient's labs. ASSESSMENT AND PLAN Principal Problem: Uremia Active Problems: FIGUEROA (dyspnea on exertion) Bradycardia Uncontrolled hypertension 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 Paroxysmal atrial fibrillation with RVR Rapid Afib--New onset. Already resolved. Recommend oral metoprolol 25 mg BID. Not a good candidate for anticoagulation due to severe anemia and progressive thrombocytopenia, although CHADSVASc score ishigh. Will watch for recurrence/ burden. Jennifer Campos MD, FACC, BETTY Inventory Specialist Manager, Division of Cardiology [facility] Antonio Atkinson MD - 04/19/2019 11:36 AM [facility] Transfer Note: Ms. Hodge is a 78 year-old woman with history of CKD 4-5, HTN, RA, gout, dementia who presented from [facility] for altered mental status. Noted to have worsening CKD with symptomatic uremia,newly declared ESRD this admission. Family decided to pursue dialysis, permcath placed 04/14/[address] Moore and HD was initiated. Platelet count noted to drop 04/16, heparin exposure started 04/14. Thrombocytopenia has continued to worsen. Diffuse ecchymoses particularly around permcath site noted. Coags concerning for DIC given low fibrinogen of 83, D-dimer > 20. Received 2 jumbo units cryoprecipitate 04/18 with noted improvement in fibrinogen level. Hb down-trended to 6.3, improved to 9 after 1 unit pRBC. FOBT positive, received IV pantoprazole which was discontinued given no obvious melena and possible PPI- related thrombocytopenia. Peripheral smear pending. LDH elevated at 1100. 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 Spoke with family at length regarding complicated coagulopathy that is a barrier to further HD at this point. No heparin-free solution available at [facility] for HD. They would like to pursue full medical management which would require inpatient Hematology consult not available at [facility]. Will defer to Hematology regarding starting argatroban giving mixed picture of DIC vs HIT. Hemodynamically stable, no overt bleeding. Spoke with MICU attending Dr. Brown - more likely HIT than DIC, recommends transfer to telemetry bed. Accepted by Dr. Bailey. Stable for transfer. Other: Paroxysmal a-fib w/ RVR- new, occurred during last HD session. Rate controlled on metoprolol. Echo shows preserved EF, mild MR, elevated R pressures. Hx gout- held allopurinol. Takes chronic prednisone 10 mg prescribed by PCP per family, unclear indication. Hypoglycemia- on admission, resolved with D10 and IV steroids. Switched to home dose prednisone. Antonio Bill MD Hospitalist [address], PT - 04/19/2019 11:15 AM CDT04/19/2019 6:46 PM Physical Therapy Note Orders received and chart reviewed. Hgb levels at 6.3 and not therapeutic. Therapy will follow-up with patient again tomorrow. Dana Laurent, PT [place] PT License Number: [id number] Poppy Vasquez, [facility]ER INSERTER - 04/18/2019 4:09 PM [facility] Daily Progress Note 04/18/2019 [id number] Name: Brandon Hodge : 1940 Age: [age] year old Sex: female SUBJECTIVE: Pt was in bed and demonstrated improved alert/awake state in comparison to . Per Pt's RN, Pt has improved in mentation (moved from ICU to Med/Surg) and tolerated trials of thin liquids. Pt may be appropriate for diet upgrade on this date. Facial tremors were not noted on this date. OBJECTIVE: Brandon Hodge is a 78 year old female admitted for AMS with PMH significant for advanced dementia, CHF, CKD, HTN, Gout, RA Progress on short term goals was as follows: - Patient will tolerate the safest, least restricted po diet texture without overt s/sx of aspiration or other negative effects on medical condition. Pt tolerated multiple bites of purees, mechanical soft, and multiple sips (single and sequential) of thin liquids with no coughing, choking, or other s/sx of aspiration. (goal progressing, continue) - Patient will demonstrate adherence to swallowing precautions with minimal cues 80% of the time. Ptwas positioned upright and fed with LINER INSERTER at bedside. Pt presents with greatly increased mentation andwas able to adequately feed self and follow directions. (goal progressing, continue) - Family will participate in education regarding anatomy/physiology of the swallow and Pt's plan of care. No family at bedside. (goal progressing, continue ) ASSESSMENT: Brandon Hodge made good progress on goals as detailed above. Pt facial tremors were not observed and she made improvements in forming adequate labial seal. Pt also presents with subjectively timely oral stage. She continues to present with mild pharyngeal dysphagia characterized by subjectively reduced laryngeal elevation, however, tolerated all bolus trials with no s/sx of aspiration (Note : aspiration cannot be ruled out nor confirmed without objective assessment / imaging.) Pt appears safe to upgrade diet with swallowing precautions as detailed below. She would benefit from follow-up by LINER INSERTER to assess diet tolerance and to provide education to family. PLAN: 1. Recommend Pt advance to mechanical-soft textured diet with thin liquids and swallow precautions: sit fully uptight/chair, small single sips/bites, remain upright for 30 minutes after meals 2. Recommend LINER INSERTER therapy 1-2x/wk while in house for 15-45 min/session to address above goals. Poppy Hauser MS, [facility] Speech-Language Pathologist Pager # [phone] Text Only # [phone] signed by Poppy Hauser SLP at 10/2018 4:50 PM MIRANDATPoppy Hauser SLP - 04/18/2019 1:30 PM CDTSpeech- Language Pathology 04/18/2019 1331 LINER INSERTER consult received and chart reviewed. Attempted to see pt this afternoon for dysphagia therapy.Pt receiving dialysis. LINER INSERTER will attempt to see pt later today as time permits. Poppy Hauser MS, [facility] Speech-Language Pathologist Pager # [phone] Text Only # [phone] Antonio Atkinson MD - 04/18/2019 11:57 AM CDT Hospitalist Progress Note SUBJECTIVE: Doing better today. CURRENT MEDICATIONS - reviewed. Current Facility-Administered Medications Medication Dose Route Frequency Last Rate Last Dose heparin 5,000 units in NS 1000 mL for irrigation 5,000 Units Irrigation DIALYSIS ONCE - PT ROOM sodium citrate anticoagulant 4 gram /100 mL (4 %) injection 4 mL 4 mL Catheter Dwell DIALYSIS ONCE - [place] DSU foLIC acid (FOLATE) tablet 1 mg 1 mg Oral DAILY AT 1700 1 mg at 04/17/19 1729 predniSONE (DELTASONE) tablet 10 mg 10 mg Oral DAILY 10 mg at 04/18/19 0856 magnesium oxide (MAG-OX 400) tablet 400 mg 400 mg Oral BID 400 mg at 11/06 0856 multivitamin tablet 1 tablet 1 tablet Oral DAILY 1 tablet at 04/18/19 0856 traMADOL (ULTRAM) tablet 50 mg 50 mg Oral BIDPRN 50 mg at 04/15/19 1828 docusate (COLACE) capsule 100 mg 100 mg Oral BID 100 mg at 04/18/19 0856 ondansetron (ZOFRAN (PF)) injection 4 mg 4 mg Slow IV Push Q6HPRN pantoprazole (PROTONIX) 40 mg in NaCl 0.9% (NS) 100 mL MINI-BAG 40 mg IV Piggyback Q24H 40 mgat 04/17/190 PHYSICAL EXAM: BP (!) 141/61 | Pulse 96 | Temp 36.4 C (97.6 F) (Temporal Artery) | Resp 18 | Wt 98.5 kg (217 lb 2.5 oz) | SpO2 95% Temp: [36.3 C (97.4 F)-37.1 C (98.8 F)] Heart Rate (monitor): [88-96] Pulse: [85-101] Resp: [13-22] BP: (117-143)/(54-87) MAP (mmHg): [92-108] No intake or output data in the 24 hours ending 04/18/19 1157 NAD + permcath right ij B/l knee not swollen LABS/IMAGING - reviewed, pertinent results as below: CBC BMP PT/INR WBC (10*3/L) Date Value 04/18/2019 15.05 (H) NA (mmol/L) Date Value 04/18/2019 133 (L) No results found for: PT RBC (10*6/L) Date Value 04/18/2019 2.31 (L) K (mmol/L) Date Value 04/18/2019 3.8 No results found for: PTINR PLT (10*3/L) Date Value 04/18/2019 71 (L) CALCIUM (mg/dL) Date Value 04/18/2019 8.2 (L) HGB (g/dL) Date Value 04/18/2019 7.8 (L) CL (mmol/L) Date Value 04/18/2019 99 aPTT HCT (%) Date Value 04/18/2019 22.9 (L) BUN (mg/dL) Date Value 04/18/2019 48 (H) No results found for: APTTPAT CREATININE (mg/dL) Date Value 04/18/2019 3.51 (H) IMAGING- Hospital Encounter on 04/13/19 FL TIME OR (NON-REPORTABLE) Narrative These images do not require a Radiology diagnostic report. US RETROPERITONEAL COMPLETE Narrative RENAL ULTRASOUND HISTORY: renal failure . TECHNIQUE: Survey ultrasound imaging of the retroperitoneum focused on the kidneys was performed with patient accounting representative images obtained. COMPARISON: None. FINDINGS: Evaluation is limited due to difficult patient positioning. RIGHT KIDNEY: Mildly increased echogenicity. Normal contour and size. The right kidney measures 9.4 x 3.6 x 4.0 cm (71.3 mL). No hydronephrosis. LEFT KIDNEY: Mildly increased echogenicity. Normal contour and size. The left kidney measures 9.5 x 4.6 x 4.0 cm (90.6 mL). No hydronephrosis. BLADDER: Unremarkable. Impression Echogenic kidneys, compatible with medical renal disease. IRandy MD., have reviewed this study and agree with the above report. CT HEAD WO CONTRAST Narrative HISTORY: Subacute neuro deficit. TECHNIQUE: Axial non contrast enhanced study is obtained. DOSE: Up-to-date CT equipment and radiation dose reduction techniques were employed. CTDIvol: 38.51 mGy. DLP: 716 mGy-cm. FINDINGS: No acute intracranial hemorrhage, midline shift, pressure effect on the brain. No abnormal fluid collection detected in the extra-axial compartment. Ventricular system and cortical sulci are prominent, consistent with cerebral and cerebellar atrophy, slightly more affecting the frontal and temporal lobes. Calcifications noted in the basal ganglia region. Left maxillary sinus is more than 90% cloudy due to chronic sinusitis with probable superimposed mild acute left maxillary sinusitis suspected. Remaining paranasal sinuses are clear. Diffuse chronic left mastoiditis noted. CONCLUSION: No acute intracranial findings in non contrast enhanced CT scan of brain. XR CHEST 1 VW Narrative HISTORY: Dialysis permacath placement. TECHNIQUE: Portable AP supine view of the chest is obtained. Comparison made with 04/13/2019 study. FINDINGS: Double lumen dialysis Tessio type catheters noted inserted through right internal jugular with the tips located at mid and distal SVC near cavoatrial junction. No acute pneumonia. No pneumothorax or pleural effusion or pulmonary congestion detected. Cardiac size is within normal limits. CONCLUSIONS: No signs of acute cardiopulmonary disease. XR CHEST 1 VW Narrative HISTORY: Syncope. TECHNIQUE: Portable AP semierect view of the chest is obtained. FINDINGS: No acute pneumonia. No pneumothorax or pleural effusion or pulmonary congestion detected. Cardiac size is within normal limits. Thoracic aorta is elongated and slightly tortuous. CONCLUSIONS: No signs of acute cardiopulmonary disease. Abdominal 1 View - To confirm nasogastric tube placement. Narrative HISTORY: Dobbhoff tube verification. FINDINGS: Portable AP supine view of the abdomen showed Dobbhoff tube with its distal metallic weighted end in the upper body near the fundus of the stomach. Compared with the earlier study, Dobbhoff tube appears to have been pulled slightly out rather than pushing it in. XR ABDOMEN 1 VW Narrative HISTORY: Dobbhoff tube position. FINDINGS: Portable AP supine view of the abdomen is obtained and compared with earlier study done at 1:23 PM. There is no significant change in the position of Dobbhoff tube since the earlier study. Abdominal 1 View - To confirm Dobhoff / Small-bore (non-styleted) enteral feeding tube placement. Narrative HISTORY: Dobbhoff tube placement. FINDINGS: 2 abdominal images were obtained with portable technique which showed Dobbhoff tube with its metallic weighted end in the upper body of the stomach. Dobbhoff tube should be pushed in by additional 6 to 8 in. Intestinal gas pattern is unremarkable. Cholecystectomy noted. Fracture of L1 and L2 vertebral bodies noted with mild sclerosis in the lower two thirds of L1 vertebral body. Fracture also noted in the upper plate of L4. Fractures are probably remote. HISTORY OF PRESENT ILLNESS 78 [facility] a [facility] of weeks ago from [facility] where she was treated for worsening CKD (there was discussion of HD but never started). She presents this time with altered mental status, lethargy, decreased eating, decreased interaction for the past couple of days. Cannot obtain history from patient as she is altered. ASSESSMENT/PLAN ESRD, newly declared Toxic metabolic encephalopathy Symptomatic Uremia Acute on chronic diastolic CHF exacerbation Persistent hypoglycemia, not on any DM meds. Gout, hold allopurinol Depression, hold prozac Neuropathy, hold gabapentin Hypertension, uncontrolled, hold oral metoprolol for now Resolved - Bradycardia, consult cardiology Dr. Davis Unclear reason but patient on chronic prednisone 10 mg QD per primary care physician. Unclear if this is for respiratory reasons or something else. Unclear if symptomatic uremia vs progressive advanced dementia. Urine cultures shows contaminated growth. Blood cultures negative, received ceftriaxone empiric then discontinued. Permcath placed and hemodialysis started 04/14/[address] Napier on board Paroxysmal atrial fibrillation w/ RVR New diagnosis IV metoprolol prn. Started po metoprolol. Cardiology consult Thrombocytopenia, possible DIC PT/PTT mildly elevated. Fibrinogen < 100, DIC > 20. PLT still >50. No gross bleed or thrombosis. Give cryoprecipitate 2 jumbo units Peripheral smear pending HIT-Ab pending - if positive will complicate outpatient dialysis Occult positive stool On IV pantoprazole Correct coagulopathy above. Monitor Hb. Extensive family discussion. If patient cannot participate in PT by Thursday and no improvement in mental status, need to have another family meeting Thursday for possible discussion about hospice home though this is unclear. Multiple children involved. Please make sure eldest child and grand daughter is included. Passed bedside swallow. Initial plan was for dobhoff and TF but will start patient on pureed diet with thick liquids, 10/19, aspiration precautions, speech consult. dvt proph hep subq Full Code, advance care planning discussed with family on admission, surrogate decision maker daughter Had advance care planning and potential hospice conversation today for 40 minutes with family members in room Keli Kruse DO - 04/18/2019 8:00 AM CDT Nephrology Progress Note Admit Date: 04/13/2019 CPS stable without CP or SOB. No acute events overnight. Limited IH/ ROS due to AMS. Persistent AMS. Vitals and medications reviewed in the chart. Blood work and imaging reviewed in the chart. Gen: NAD HEENT: NCAT. MMM. Neck: Supple. No LAD. Lungs: CTA CVS: RRR Abd: Soft. NT. +BS Ext: No C/C. Hip Edema trace Skin: No rash Psych: Somnolent Neuro: No speech. Андрей Kay/ Brandon Dixon Ayesha is a 78 year old female ESRD. CVC placed and HD initiated [id number]. Diastolic CHF, A/C. Pulmonary HTN. Moderate TR. HTN with CKD/ CHF. Gout. Acute cystitis. Toxic metabolic encephalopathy. P/ Continue current POC and Medications other than the changes below. HD today. HD placement at the [facility]. Continue abx. Advance diet as tolerated due to improved mental status. May need to stop heparin due to thrombocytopenia. Check HIT Ab. Give Procrit. Transfuse PRBC as needed. No NSAIDs. AM labs. Daily weight. Case discussed with Dr. Bill. Patient Vitals for the past 24 hrs: BP Temp Temp src Pulse Resp SpO2 Weight 04/14/19 1707 (!) 110/91 36.4 C (97.5 F) Axillary 76 16 99.5 kg (219 lb 5.7 oz) 04/14/19 1705 (!) 106/94 04/14/19 1700 (!) 134/99 75 04/14/19 1630 (!) 120/94 75 04/14/19 1600 122/70 36.8 C (98.3 F) Axillary 65 13 97 % 04/14/19 1535 112/81 04/14/19 1530 97/62 73 04/14/19 1500 (!) 141/93 71 04/14/19 1458 109/85 70 04/14/19 1450 118/75 68 15 99.8 kg (220 lb 0.3 oz) 04/14/19 1412 (!) 146/99 12 04/14/19 1407 104/77 68 12 90 % 04/14/19 1406 95 % 04/14/19 1404 94 % 04/14/19 1402 119/85 68 12 94 % 04/14/19 1400 126/72 72 12 94 % 04/14/19 1351 96 % 04/14/19 1350 126/86 88 12 98 % 04/14/19 1345 136/82 97 12 96 % 04/14/19 1342 (!) 149/85 73 12 98 % 04/14/19 1341 96 % 04/14/19 1340 97 % 04/14/19 1339 97 % 04/14/19 1331 (!) 145/56 36.1 C (97 F) TEMPORAL ART 92 12 90 % 04/14/19 1105 127/77 36.4 C (97.6 F) TEMPORAL ART 66 12 98 % 04/14/19 1010 (!) 142/98 20 100.7 kg (222 lb) 04/14/19 1005 (!) 144/98 20 04/14/19 1000 20 04/14/19 0800 (!) 167/134 35.7 C (96.3 F) Axillary 66 11 91 % 04/14/19 0720 16 96 % 04/14/19 0600 (!) 159/88 67 9 92 % 04/14/19 0500 (!) 128/101 72 04/14/19 0400 (!) 149/68 36.6 C (97.8 F) Axillary 68 15 94 % 04/14/19 0220 (!) 142/97 69 21 04/14/19 0211 (!) 168/100 15 95 % 04/14/19 0030 128/83 36.1 C (96.9 F) Axillary 70 22 93 % 04/14/19 0025 128/83 70 24 100 % 04/13/19 2200 (!) 121/95 66 11 96 % 04/13/19 2100 (!) 105/91 35.8 C (96.5 F) Axillary 156 12 98 % 04/13/19 2000 92/70 106 13 96 % Intake/Output Summary (Last 24 hours) at 04/14/2019 1801 Last data filed at 04/14/2019 1714 Gross per 24 hour Intake 100 ml Output 950 ml Net -850 ml CBC BMP PT/INR WBC (10*3/L) Date Value 04/18/2019 15.05 (H) NA (mmol/L) Date Value 04/18/2019 133 (L) No results found for: PT RBC (10*6/L) Date Value 04/18/2019 2.31 (L) K (mmol/L) Date Value 04/18/2019 3.8 No results found for: PTINR PLT (10*3/L) Date Value 04/18/2019 71 (L) CALCIUM (mg/dL) Date Value 04/18/2019 8.2 (L) HGB (g/dL) Date Value 04/18/2019 7.8 (L) CL (mmol/L) Date Value 04/18/2019 99 aPTT HCT (%) Date Value 04/18/2019 22.9 (L) BUN (mg/dL) Date Value 04/18/2019 48 (H) No results found for: APTTPAT CREATININE (mg/dL) Date Value 04/18/2019 3.51 (H) Us Retroperitoneal Complete Result Date: 04/13/2019 Echogenic kidneys, compatible with medical renal disease. I, Randy Segal MD. , have reviewed thisstudy and agree with the above report. Current Facility-Administered Medications Medication Dose Route Frequency Last Rate Last Dose heparin 5,000 units in NS 1000 mL for irrigation 5,000 Units Irrigation DIALYSIS ONCE - PT ROOM sodium citrate anticoagulant 4 gram /100 mL (4 %) injection 4 mL 4 mL Catheter Dwell DIALYSIS ONCE - [place] [facility] foLIC acid (FOLATE) tablet 1 mg 1 mg Oral DAILY AT 1700 1 mg at 04/17/19 1729 predniSONE (DELTASONE) tablet 10 mg 10 mg Oral DAILY 10 mg at 04/18/19 0856 magnesium oxide (MAG-OX 400) tablet 400 mg 400 mg Oral BID 400 mg at 11/06 0856 multivitamin tablet 1 tablet 1 tablet Oral DAILY 1 tablet at 04/18/19 0856 traMADOL (ULTRAM) tablet 50 mg 50 mg Oral BIDPRN 50 mg at 04/15/19 1828 docusate (COLACE) capsule 100 mg 100 mg Oral BID 100 mg at 04/18/19 0856 ondansetron (ZOFRAN (PF)) injection 4 mg 4 mg Slow IV Push Q6HPRN pantoprazole (PROTONIX) 40 mg in NaCl 0.9% (NS) 100 mL MINI-BAG 40 mg IV Piggyback Q24H 40 mgat 04/17/19 2150 Current Facility-Administered Medications: heparin 5,000 units in NS 1000 mL for irrigation, 5,000 Units, Irrigation, DIALYSIS ONCE - PT ROOM, Aglieco, Keli G, DO sodium citrate anticoagulant 4 gram /100 mL (4 %) injection 4 mL, 4 mL, Catheter Dwell, DIALYSIS ONCE - [place] [facility], Aglieco, Keli G, DO foLIC acid (FOLATE) tablet 1 mg, 1 mg, Oral, DAILY AT 1700, Aglieco, Keli G, DO, 1 mg at 04/17/19 1729 predniSONE (DELTASONE) tablet 10 mg, 10 mg, Oral, DAILY, Antonio Bill MD, 10 mg at magnesium oxide (MAG-OX 400) tablet 400 mg, 400 mg, Oral, BID, Alex Diaz MD, 400 mg at 04/18/19 08 multivitamin tablet 1 tablet, 1 tablet, Oral, DAILY, Keli Napier DO, 1 tablet at traMADOL (ULTRAM) tablet 50 mg, 50 mg, Oral, BIDPRN, Alex Diaz MD, 50 mg at 04/15/198 docusate (COLACE) capsule 100 mg, 100 mg, Oral, BID, Alex Diaz MD, 100 mg at 04/18/19 08 ondansetron (ZOFRAN (PF)) injection 4 mg, 4 mg, Slow IV Push, Q6HPRN, Alex Diaz MD pantoprazole (PROTONIX) 40 mg in NaCl 0.9% (NS) 100 mL MINI-BAG, 40 mg, IV Piggyback, Q24H, Alex Diaz MD, 40 mg at 04/17/19 2150 Addendum: Greater than 30 minutes patient care. Case discussed with Dr. Bill. Developed Afib with RVR near the end of dialysis. Low platelets, anemia and AMS with scattered ecchymoses concerning for DIC vs HUS/ TTP. Condition is critical with high mortality. Antonio Atkinson MD - 04/17/2019 2:11 PM CDT Hospitalist Progress Note SUBJECTIVE: Still altered Cannot get ROS CURRENT MEDICATIONS - reviewed. Current Facility-Administered Medications Medication Dose Route Frequency Last Rate Last Dose magnesium oxide (MAG-OX 400) tablet 400 mg 400 mg Oral BID 400 mg at 0825 multivitamin tablet 1 tablet 1 tablet Oral DAILY 1 tablet at 04/17/19 0825 traMADOL (ULTRAM) tablet 50 mg 50 mg Oral BIDPRN 50 mg at 04/15/191827 docusate (COLACE) capsule 100 mg 100 mg Oral BID 100 mg at 04/17/19 0825 methylPREDNISolone sod succ (SOLU-MEDROL (PF)) injection 20 mg 20 mg Slow IV Push BID 20 mg at 04/17/19 0825 ondansetron (ZOFRAN (PF)) injection 4 mg 4 mg Slow IV Push Q6HPRN pantoprazole (PROTONIX) 40 mg in NaCl 0.9% (NS) 100 mL MINI-BAG 40 mg IV Piggyback Q24H 40 mgat 04/16/192048 PHYSICAL EXAM: BP (!) 143/71 | Pulse 89 | Temp 36.6 C (97.9 F) (Oral) | Resp 22 | Wt 97.5 kg (215 lb) | SpO2 94% Temp: [36.4 C (97.5 F)-36.8 C (98.3 F)] Heart Rate (monitor): [78-90] Pulse: [71-90] Resp: [14-26] BP: (104-151)/(56-138) MAP (mmHg): [67-106] Intake/Output Summary (Last 24 hours) at 04/17/2019 1412 Last data filed at 04/17/2019 0504 Gross per 24 hour Intake 200 ml Output 1000 ml Net -800 ml NAD + permcath right ij B/l knee not swollen LABS/IMAGING - reviewed, pertinent results as below: CBC BMP PT/INR WBC (10*3/L) Date Value 04/17/2019 13.39 (H) NA (mmol/L) Date Value 04/17/2019 135 No results found for: PT RBC (10*6/L) Date Value 04/17/2019 2.59 (L) K (mmol/L) Date Value 04/17/2019 4.1 No results found for: PTINR PLT (10*3/L) Date Value 04/17/2019 80 (L) CALCIUM (mg/dL) Date Value 04/17/2019 8.3 (L) HGB (g/dL) Date Value 04/17/2019 8.8 (L) CL (mmol/L) Date Value 04/17/2019 101 aPTT HCT (%) Date Value 04/17/2019 24.5 (L) BUN (mg/dL) Date Value 04/17/2019 41 (H) No results found for: APTTPAT CREATININE (mg/dL) Date Value 04/17/2019 2.89 (H) IMAGING- Hospital Encounter on 04/13/19 FL TIME OR (NON-REPORTABLE) Narrative These images do not require a Radiology diagnostic report. US RETROPERITONEAL COMPLETE Narrative RENAL ULTRASOUND HISTORY: renal failure . TECHNIQUE: Survey ultrasound imaging of the retroperitoneum focused on the kidneys was performed with patient accounting representative images obtained. COMPARISON: None. FINDINGS: Evaluation is limited due to difficult patient positioning. RIGHT KIDNEY: Mildly increased echogenicity. Normal contour and size. The right kidney measures 9.4 x 3.6 x 4.0 cm (71.3 mL). No hydronephrosis. LEFT KIDNEY: Mildly increased echogenicity. Normal contour and size. The left kidney measures 9.5 x 4.6 x 4.0 cm (90.6 mL). No hydronephrosis. BLADDER: Unremarkable. Impression Echogenic kidneys, compatible with medical renal disease. IRandy MD., have reviewed this study and agree with the above report. CT HEAD WO CONTRAST Narrative HISTORY: Subacute neuro deficit. TECHNIQUE: Axial non contrast enhanced study is obtained. DOSE: Up-to-date CT equipment and radiation dose reduction techniques were employed. CTDIvol: 38.51 mGy. DLP: 716 mGy-cm. FINDINGS: No acute intracranial hemorrhage, midline shift, pressure effect on the brain. No abnormal fluid collection detected in the extra-axial compartment. Ventricular system and cortical sulci are prominent, consistent with cerebral and cerebellar atrophy, slightly more affecting the frontal and temporal lobes. Calcifications noted in the basal ganglia region. Left maxillary sinus is more than 90% cloudy due to chronic sinusitis with probable superimposed mild acute left maxillary sinusitis suspected. Remaining paranasal sinuses are clear. Diffuse chronic left mastoiditis noted. CONCLUSION: No acute intracranial findings in non contrast enhanced CT scan of brain. XR CHEST 1 VW Narrative HISTORY: Dialysis permacath placement. TECHNIQUE: Portable AP supine view of the chest is obtained. Comparison made with 04/13/2019 study. FINDINGS: Double lumen dialysis Tessio type catheters noted inserted through right internal jugular with the tips located at mid and distal SVC near cavoatrial junction. No acute pneumonia. No pneumothorax or pleural effusion or pulmonary congestion detected. Cardiac size is within normal limits. CONCLUSIONS: No signs of acute cardiopulmonary disease. XR CHEST 1 VW Narrative HISTORY: Syncope. TECHNIQUE: Portable AP semierect view of the chest is obtained. FINDINGS: No acute pneumonia. No pneumothorax or pleural effusion or pulmonary congestion detected. Cardiac size is within normal limits. Thoracic aorta is elongated and slightly tortuous. CONCLUSIONS: No signs of acute cardiopulmonary disease. Abdominal 1 View - To confirm nasogastric tube placement. Narrative HISTORY: Dobbhoff tube verification. FINDINGS: Portable AP supine view of the abdomen showed Dobbhoff tube with its distal metallic weighted end in the upper body near the fundus of the stomach. Compared with the earlier study, Dobbhoff tube appears to have been pulled slightly out rather than pushing it in. XR ABDOMEN 1 VW Narrative HISTORY: Dobbhoff tube position. FINDINGS: Portable AP supine view of the abdomen is obtained and compared with earlier study done at 1:23 PM. There is no significant change in the position of Dobbhoff tube since the earlier study. Abdominal 1 View - To confirm Dobhoff / Small-bore (non-styleted) enteral feeding tube placement. Narrative HISTORY: Dobbhoff tube placement. FINDINGS: 2 abdominal images were obtained with portable technique which showed Dobbhoff tube with its metallic weighted end in the upper body of the stomach. Dobbhoff tube should be pushed in by additional 6 to 8 in. Intestinal gas pattern is unremarkable. Cholecystectomy noted. Fracture of L1 and L2 vertebral bodies noted with mild sclerosis in the lower two thirds of L1 vertebral body. Fracture also noted in the upper plate of L4. Fractures are probably remote. HISTORY OF PRESENT ILLNESS 78 y/[facility] being discharged a couple of weeks ago from [facility] where she was treated for worsening CKD (there was discussion of HD but never started). She presents this time with altered mental status, lethargy, decreased eating, decreased interaction for the past couple of days. Cannot obtain history from patient as she is altered. ASSESSMENT/PLAN ESRD, newly declared Toxic metabolic encephalopathy Symptomatic Uremia Acute on chronic diastolic CHF exacerbation Persistent hypoglycemia, not on any DM meds. Gout, hold allopurinol Depression, hold prozac Neuropathy, hold gabapentin Hypertension, uncontrolled, hold oral metoprolol for now Resolved - Bradycardia, consult cardiology Dr. Davis Unclear reason but patient on chronic prednisone 10 mg QD per primary care physician. Unclear if this is for respiratory reasons or something else. Unclear if symptomatic uremia vs progressive advanced dementia. Urine cultures shows contaminated growth. Blood cultures negative, received ceftriaxone empiric then discontinued. Permcath placed and hemodialysis started 04/14/[address] 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 Monitor for now. Extensive family discussion. If patient cannot participate in PT by Thursday and no improvement in mental status, need to have another family meeting Thursday for possible discussion about hospice home though this is unclear. Multiple children involved. Please make sure eldest child and grand daughter is included. Passed bedside swallow. Initial plan was for dobhoff and TF but will start patient on pureed diet with thick liquids, 10/19, aspiration precautions, speech consult. dvt proph hep subq Full Code, advance care planning discussed with family on admission, surrogate decision maker daughter Had advance care planning and potential hospice conversation today for 40 minutes with family members in room Adriana Staples MD - 04/17/2019 11:49 AM CDT [facility] Cardiology progress note Date of Service: 04/17/2019 Brandon Hodge is a 78 year old female hospitalized for AMS. No new cardiac complaints noted. Still AMS. PHYSICAL EXAM Vitals: 04/17/19 0500 04/17/19 0600 04/17/19 0800 04/17/19 0805 BP: (!) 133/91 120/56 107/58 Pulse: 83 84 87 Resp: 22 16 20 20 Temp: 36.6 C (97.8 F) TempSrc: Oral SpO2: 94% 98% 98% 98% Weight: General: no apparent distress HEENT: normocephalic atraumatic Neck: supple, no lymphadenopathy, no bruits, no JVD Lungs: clear to auscultation bilaterally Cardio: S1, S2, regular; no murmurs, rubs or gallops Abdomen: non-distended : not examined Rectal: not examined Extremities: no clubbing, cyanosis, or edema Skin: no rashes Neuro: no focal deficits Medications: I have reviewed the patient's medications; see Medication Reconciliation. Labs: I have reviewed the patient's labs. ASSESSMENT AND PLAN Principal Problem: Uremia Active Problems: FIGUEROA (dyspnea on exertion) Bradycardia Uncontrolled hypertension 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 Acute on chronic diastolic CHF exacerbation: Anasarca likely in the setting of worsening CKD. Volumeoverloaded noted. Continue with HD. Recommend follow up echo to be done in 6-8 weeks after stabalizing with dialysis and volume is well controlled. Bradycardia: Resolved. No advanced AV block or sinus pauses noted. Continue tele monitoring. Toxic metabolic encephalopathy: Likely Uremia Progressive CKD stage 4 or 5 with oliguria: As per primary/nephrology team. Essential Hypertension, uncontrolled: Resolved. AMS: Still persisting. As per primary team. Please call us if there is any cardiac related questions. Recommend outpatient follow up with [facility] Cardiology in 4-6 weeks. Smooth Davis MD 04/17/2019 11:49 AM Inventory Specialist Manager, Division of Cardiology [facility] Keli Kruse, - 04/17/2019 10:18 AM CDT Nephrology Progress Note Admit Date: 04/13/2019 CPS stable without CP or SOB. No acute events overnight. Limited IH/ ROS due to AMS. Persistent AMS. Poor PO intake. Chiang removed. Vitals and medications reviewed in the chart. Blood work and imaging reviewed in the chart. Gen: NAD HEENT: NCAT. MMM. Neck: Supple. No LAD. Lungs: CTA CVS: RRR Abd: Soft. NT. +BS Ext: No C/C. Hip Edema trace Skin: No rash Psych: Somnolent Neuro: No speech. Андрей Kay/ Brandon Dixon Ayesha is a 78 year old female ESRD. CVC placed and HD initiated [id number]. Diastolic CHF, A/C. HTN with CKD/ CHF. Gout. Acute cystitis. Toxic metabolic encephalopathy. P/ Continue current POC and Medications other than the changes below. Next HD Thursday. Arrange for HD placement. Continue abx. Advance diet as tolerated due to improved mental status. May need to stop heparin due to thrombocytopenia. HIT? No NSAIDs. AM labs. Daily weight. Patient Vitals for the past 24 hrs: BP Temp Temp src Pulse Resp SpO2 Weight 04/14/19 1707 (!) 110/91 36.4 C (97.5 F) Axillary 76 16 99.5 kg (219 lb 5.7 oz) 04/14/19 1705 (!) 106/94 04/14/19 1700 (!) 134/99 75 04/14/19 1630 (!) 120/94 75 04/14/19 1600 122/70 36.8 C (98.3 F) Axillary 65 13 97 % 04/14/19 1535 112/81 04/14/19 1530 97/62 73 04/14/19 1500 (!) 141/93 71 04/14/19 1458 109/85 70 04/14/19 1450 118/75 68 15 99.8 kg (220 lb 0.3 oz) 04/14/19 1412 (!) 146/99 12 04/14/19 1407 104/77 68 12 90 % 04/14/19 1406 95 % 04/14/19 1404 94 % 04/14/19 1402 119/85 68 12 94 % 04/14/19 1400 126/72 72 12 94 % 04/14/19 1351 96 % 04/14/19 1350 126/86 88 12 98 % 04/14/19 1345 136/82 97 12 96 % 04/14/19 1342 (!) 149/85 73 12 98 % 04/14/19 1341 96 % 04/14/19 1340 97 % 04/14/19 1339 97 % 04/14/19 1331 (!) 145/56 36.1 C (97 F) TEMPORAL ART 92 12 90 % 04/14/19 1105 127/77 36.4 C (97.6 F) TEMPORAL ART 66 12 98 % 04/14/19 1010 (!) 142/98 20 100.7 kg (222 lb) 04/14/19 1005 (!) 144/98 20 04/14/19 1000 20 04/14/19 0800 (!) 167/134 35.7 C (96.3 F) Axillary 66 11 91 % 04/14/19 0720 16 96 % 04/14/19 0600 (!) 159/88 67 9 92 % 04/14/19 0500 (!) 128/101 72 04/14/19 0400 (!) 149/68 36.6 C (97.8 F) Axillary 68 15 94 % 04/14/19 0220 (!) 142/97 69 21 04/14/19 0211 (!) 168/100 15 95 % 04/14/19 0030 128/83 36.1 C (96.9 F) Axillary 70 22 93 % 04/14/19 0025 128/83 70 24 100 % 04/13/19 2200 (!) 121/95 66 11 96 % 04/13/19 2100 (!) 105/91 35.8 C (96.5 F) Axillary 156 12 98 % 04/13/19 2000 92/70 106 13 96 % Intake/Output Summary (Last 24 hours) at 04/14/2019 1801 Last data filed at 04/14/2019 1714 Gross per 24 hour Intake 100 ml Output 950 ml Net -850 ml CBC BMP PT/INR WBC (10*3/L) Date Value 04/17/2019 13.39 (H) NA (mmol/L) Date Value 04/17/2019 135 No results found for: PT RBC (10*6/L) Date Value 04/17/2019 2.59 (L) K (mmol/L) Date Value 04/17/2019 4.1 No results found for: PTINR PLT (10*3/L) Date Value 04/17/2019 80 (L) CALCIUM (mg/dL) Date Value 04/17/2019 8.3 (L) HGB (g/dL) Date Value 04/17/2019 8.8 (L) CL (mmol/L) Date Value 04/17/2019 101 aPTT HCT (%) Date Value 04/17/2019 24.5 (L) BUN (mg/dL) Date Value 04/17/2019 41 (H) No results found for: APTTPAT CREATININE (mg/dL) Date Value 04/17/2019 2.89 (H) Us Retroperitoneal Complete Result Date: 04/13/2019 Echogenic kidneys, compatible with medical renal disease. I, Randy Segal MD. , have reviewed thisstudy and agree with the above report. Current Facility-Administered Medications Medication Dose Route Frequency Last Rate Last Dose [START ON 04/18/2019] predniSONE (DELTASONE) tablet 10 mg 10 mg Oral DAILY magnesium oxide (MAG-OX 400) tablet 400 mg 400 mg Oral BID 400 mg at 0825 multivitamin tablet 1 tablet 1 tablet Oral DAILY 1 tablet at 04/17/19 0825 traMADOL (ULTRAM) tablet 50 mg 50 mg Oral BIDPRN 50 mg at 04/15/198 docusate (COLACE) capsule 100 mg 100 mg Oral BID 100 mg at 04/17/19 0825 ondansetron (ZOFRAN (PF)) injection 4 mg 4 mg Slow IV Push Q6HPRN pantoprazole (PROTONIX) 40 mg in NaCl 0.9% (NS) 100 mL MINI-BAG 40 mg IV Piggyback Q24H 40 mgat 04/16/192048 Current Facility-Administered Medications: [START ON 04/18/2019] predniSONE (DELTASONE) tablet 10 mg, 10 mg, Oral, DAILY , Antonio Bill MD magnesium oxide (MAG-OX 400) tablet 400 mg, 400 mg, Oral, BID, Alex Diaz MD, 400 mg at 04/17/1925 multivitamin tablet 1 tablet, 1 tablet, Oral, DAILY, Keli Napier DO, 1 tablet at 825 traMADOL (ULTRAM) tablet 50 mg, 50 mg, Oral, BIDPRN, Alex Diaz MD, 50 mg at 04/15/191827 docusate (COLACE) capsule 100 mg, 100 mg, Oral, BID, Alex Diaz MD, 100 mg at 04/17/1925 ondansetron (ZOFRAN (PF)) injection 4 mg, 4 mg, Slow IV Push, Q6HPRN, Alex Diaz MD pantoprazole (PROTONIX) 40 mg in NaCl 0.9% (NS) 100 mL MINI-BAG, 40 mg, IV Piggyback, Q24H, Alex Diaz MD, 40 mg at 04/16/192048 Antonio Atkinson MD - 04/16/2019 12:39 PM CDT Hospitalist Progress Note SUBJECTIVE: Still altered Cannot get ROS CURRENT MEDICATIONS - reviewed. Current Facility-Administered Medications Medication Dose Route Frequency Last Rate Last Dose D10W 10 % IV infusion IV Infusion CONTINUOUS 20 mL/hr at 04/16/19 0820 magnesium oxide (MAG-OX 400) tablet 400 mg 400 mg Oral BID 400 mg at 0821 multivitamin tablet 1 tablet 1 tablet Oral DAILY 1 tablet at 04/16/19 0828 traMADOL (ULTRAM) tablet 50 mg 50 mg Oral BIDPRN 50 mg at 04/15/19 1828 docusate (COLACE) capsule 100 mg 100 mg Oral BID Stopped at 04/16/19 0800 methylPREDNISolone sod succ (SOLU-MEDROL (PF)) injection 20 mg 20 mg Slow IV Push BID 20 mg at 04/16/19 0821 ondansetron (ZOFRAN (PF)) injection 4 mg 4 mg Slow IV Push Q6HPRN pantoprazole (PROTONIX) 40 mg in NaCl 0.9% (NS) 100 mL MINI-BAG 40 mg IV Piggyback Q24H 40 mgat 04/15/19 195 PHYSICAL EXAM: BP 105/77 | Pulse 78 | Temp 35.8 C (96.5 F) (Axillary) | Resp 13 | Wt 97.5 kg (215 lb) | SpO2 94% Temp: [35.8 C (96.5 F)-37 C (98.6 F)] Heart Rate (monitor): [71-86] Pulse: [70-91] Resp: [11-23] BP: (102-163)/(38-146) MAP (mmHg): [60-146] Intake/Output Summary (Last 24 hours) at 04/16/2019 1239 Last data filed at 04/16/2019 0600 Gross per 24 hour Intake 130 ml Output 1486 ml Net -1356 ml NAD + permcath right ij B/l knee not swollen LABS/IMAGING - reviewed, pertinent results as below: CBC BMP PT/INR WBC (10*3/L) Date Value 04/16/2019 11.10 NA (mmol/L) Date Value 04/16/2019 136 No results found for: PT RBC (10*6/L) Date Value 04/16/2019 2.41 (L) K (mmol/L) Date Value 04/16/2019 4.1 No results found for: PTINR PLT (10*3/L) Date Value 04/16/2019 90 (L) CALCIUM (mg/dL) Date Value 04/16/2019 8.2 (L) HGB (g/dL) Date Value 04/16/2019 8.1 (L) CL (mmol/L) Date Value 04/16/2019 103 aPTT HCT (%) Date Value 04/16/2019 22.6 (L) BUN (mg/dL) Date Value 04/16/2019 55 (H) No results found for: APTTPAT CREATININE (mg/dL) Date Value 04/16/2019 3.35 (H) IMAGING- Hospital Encounter on 04/13/19 FL TIME OR (NON-REPORTABLE) Narrative These images do not require a Radiology diagnostic report. US RETROPERITONEAL COMPLETE Narrative RENAL ULTRASOUND HISTORY: renal failure . TECHNIQUE: Survey ultrasound imaging of the retroperitoneum focused on the kidneys was performed with patient accounting representative images obtained. COMPARISON: None. FINDINGS: Evaluation is limited due to difficult patient positioning. RIGHT KIDNEY: Mildly increased echogenicity. Normal contour and size. The right kidney measures 9.4 x 3.6 x 4.0 cm (71.3 mL). No hydronephrosis. LEFT KIDNEY: Mildly increased echogenicity. Normal contour and size. The left kidney measures 9.5 x 4.6 x 4.0 cm (90.6 mL). No hydronephrosis. BLADDER: Unremarkable. Impression Echogenic kidneys, compatible with medical renal disease. IRandy MD., have reviewed this study and agree with the above report. CT HEAD WO CONTRAST Narrative HISTORY: Subacute neuro deficit. TECHNIQUE: Axial non contrast enhanced study is obtained. DOSE: Up-to-date CT equipment and radiation dose reduction techniques were employed. CTDIvol: 38.51 mGy. DLP: 716 mGy-cm. FINDINGS: No acute intracranial hemorrhage, midline shift, pressure effect on the brain. No abnormal fluid collection detected in the extra-axial compartment. Ventricular system and cortical sulci are prominent, consistent with cerebral and cerebellar atrophy, slightly more affecting the frontal and temporal lobes. Calcifications noted in the basal ganglia region. Left maxillary sinus is more than 90% cloudy due to chronic sinusitis with probable superimposed mild acute left maxillary sinusitis suspected. Remaining paranasal sinuses are clear. Diffuse chronic left mastoiditis noted. CONCLUSION: No acute intracranial findings in non contrast enhanced CT scan of brain. XR CHEST 1 VW Narrative HISTORY: Dialysis permacath placement. TECHNIQUE: Portable AP supine view of the chest is obtained. Comparison made with 04/13/2019 study. FINDINGS: Double lumen dialysis Tessio type catheters noted inserted through right internal jugular with the tips located at mid and distal SVC near cavoatrial junction. No acute pneumonia. No pneumothorax or pleural effusion or pulmonary congestion detected. Cardiac size is within normal limits. CONCLUSIONS: No signs of acute cardiopulmonary disease. XR CHEST 1 VW Narrative HISTORY: Syncope. TECHNIQUE: Portable AP semierect view of the chest is obtained. FINDINGS: No acute pneumonia. No pneumothorax or pleural effusion or pulmonary congestion detected. Cardiac size is within normal limits. Thoracic aorta is elongated and slightly tortuous. CONCLUSIONS: No signs of acute cardiopulmonary disease. Abdominal 1 View - To confirm nasogastric tube placement. Narrative HISTORY: Dobbhoff tube verification. FINDINGS: Portable AP supine view of the abdomen showed Dobbhoff tube with its distal metallic weighted end in the upper body near the fundus of the stomach. Compared with the earlier study, Dobbhoff tube appears to have been pulled slightly out rather than pushing it in. XR ABDOMEN 1 VW Narrative HISTORY: Dobbhoff tube position. FINDINGS: Portable AP supine view of the abdomen is obtained and compared with earlier study done at 1:23 PM. There is no significant change in the position of Dobbhoff tube since the earlier study. Abdominal 1 View - To confirm Dobhoff / Small-bore (non-styleted) enteral feeding tube placement. Narrative HISTORY: Dobbhoff tube placement. FINDINGS: 2 abdominal images were obtained with portable technique which showed Dobbhoff tube with its metallic weighted end in the upper body of the stomach. Dobbhoff tube should be pushed in by additional 6 to 8 in. Intestinal gas pattern is unremarkable. Cholecystectomy noted. Fracture of L1 and L2 vertebral bodies noted with mild sclerosis in the lower two thirds of L1 vertebral body. Fracture also noted in the upper plate of L4. Fractures are probably remote. HISTORY OF PRESENT ILLNESS 78 y/[facility] being discharged a couple of weeks ago from [facility] where she was treated for worsening CKD (there was discussion of HD but never started). She presents this time with altered mental status, lethargy, decreased eating, decreased interaction for the past couple of days. Cannot obtain history from patient as she is altered. 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 Given dose of decadron in ER and started on D10. Hypoglycemia possibly due to patient not taking her chronic prednisone due to being npo due to AMS Gout, hold allopurinol Depression, hold prozac Neuropathy, hold gabapentin Hypertension, uncontrolled, hold oral metoprolol for now Resolved - Bradycardia, consult cardiology Dr. Davis Unclear reason but patient on chronic prednisone 10 mg QD per primary care physician. Unclear if this is for respiratory reasons or something else. Hypothermia, resolved Leukocytosis Anemia Hypomagnesemia, replace ? Dysphagia Progressive advanced dementia. CT head done on admission. Unclear if this is uremia, progressive advanced dementia. Urine cultures shows contaminated growth. Blood cultures negative. Procal only 0.2 so infectious etiology unlikely. IV ceftriaxone day 3, dc abx. F/u cultures. Wbc elevated due to iv solumedrol and chronic use of steroids. Extensive family discussion. If patient cannot participate in PT by Thursday and no improvement in mental status, need to have another family meeting Thursday for possible discussion about hospice home though this is unclear. Multiple children involved. Please make sure eldest child and grand daughter is included. Passed bedside swallow. Initial plan was for dobhoff and TF but will start patient on pureed diet with thick liquids, 10/19, aspiration precautions, speech consult. FSBG q4h Continue chiang HD started 04/14/[address] Napier Surgery consult Dr. Moore, s/p right IJ vein Permcath for HD on 04/14/19. If patient doesn't tolerate PO and family wants to be aggressive, please discuss about PEG tube options Thursday Cards consult Dr. Davis IV protonix Iv solumedrol instead of chronic prednisone F/u blood and urine cultures Hold bp meds for now dvt proph hep subq Full Code, advance care planning discussed with family on admission, surrogate decision maker daughter Had advance care planning and potential hospice conversation today for 40 minutes with family members in room Home meds reviewed Asked RN to have PT re-evaluate patient on Thursday and Thursday. If we can get appropriate PT evaluation where patient is participatory she can go to SNF. SW on board. If patient cannot participate withPT, only option it seems would be self-pay or home. Discussed with family. Keli Kruse DO - 04/16/2019 8:44 AM CDT Nephrology Progress Note Admit Date: 04/13/2019 CPS stable without CP or SOB. No acute events overnight. Limited IH/ ROS due to AMS. Bleeding from the nose and bladder reported by the nurse. Vitals and medications reviewed in the chart. Blood work and imaging reviewed in the chart. Gen: NAD HEENT: NCAT. MMM. Neck: Supple. No LAD. Lungs: CTA CVS: RRR Abd: Soft. NT. +BS Ext: No C/C. Hip Edema 1+ Skin: No rash Psych: Awake Neuro: Minimal speech. Андрей Kay/ Brandon Hodge is a 78 year old female ESRD. CVC placed and HD initiated [id number]. Diastolic CHF, A/C. HTN with CKD/ CHF. Gout. Acute cystitis. Toxic metabolic encephalopathy. P/ Continue current POC and Medications other than the changes below. Third HD treatment today. Next HD Thursday. Arrange for HD placement. Continue abx. Advance diet as tolerated due to improved mental status. May need to stop heparin due to thrombocytopenia. No NSAIDs. AM labs. Daily weight. Case discussed with Dr. Bill. Patient Vitals for the past 24 hrs: BP Temp Temp src Pulse Resp SpO2 Weight 04/14/19 1707 (!) 110/91 36.4 C (97.5 F) Axillary 76 16 99.5 kg (219 lb 5.7 oz) 04/14/19 1705 (!) 106/94 04/14/19 1700 (!) 134/99 75 04/14/19 1630 (!) 120/94 75 04/14/19 1600 122/70 36.8 C (98.3 F) Axillary 65 13 97 % 04/14/19 1535 112/81 04/14/19 1530 97/62 73 04/14/19 1500 (!) 141/93 71 04/14/19 1458 109/85 70 04/14/19 1450 118/75 68 15 99.8 kg (220 lb 0.3 oz) 04/14/19 1412 (!) 146/99 12 04/14/19 1407 104/77 68 12 90 % 04/14/19 1406 95 % 04/14/19 1404 94 % 04/14/19 1402 119/85 68 12 94 % 04/14/19 1400 126/72 72 12 94 % 04/14/19 1351 96 % 04/14/19 1350 126/86 88 12 98 % 04/14/19 1345 136/82 97 12 96 % 04/14/19 1342 (!) 149/85 73 12 98 % 04/14/19 1341 96 % 04/14/19 1340 97 % 04/14/19 1339 97 % 04/14/19 1331 (!) 145/56 36.1 C (97 F) TEMPORAL ART 92 12 90 % 04/14/19 1105 127/77 36.4 C (97.6 F) TEMPORAL ART 66 12 98 % 04/14/19 1010 (!) 142/98 20 100.7 kg (222 lb) 04/14/19 1005 (!) 144/98 20 04/14/19 1000 20 04/14/19 0800 (!) 167/134 35.7 C (96.3 F) Axillary 66 11 91 % 04/14/19 0720 16 96 % 04/14/19 0600 (!) 159/88 67 9 92 % 04/14/19 0500 (!) 128/101 72 04/14/19 0400 (!) 149/68 36.6 C (97.8 F) Axillary 68 15 94 % 04/14/19 0220 (!) 142/97 69 21 04/14/19 0211 (!) 168/100 15 95 % 04/14/19 0030 128/83 36.1 C (96.9 F) Axillary 70 22 93 % 04/14/19 0025 128/83 70 24 100 % 04/13/19 2200 (!) 121/95 66 11 96 % 04/13/19 2100 (!) 105/91 35.8 C (96.5 F) Axillary 156 12 98 % 04/13/19 2000 92/70 106 13 96 % Intake/Output Summary (Last 24 hours) at 04/14/2019 1801 Last data filed at 04/14/2019 1714 Gross per 24 hour Intake 100 ml Output 950 ml Net -850 ml CBC BMP PT/INR WBC (10*3/L) Date Value 04/17/2019 13.39 (H) NA (mmol/L) Date Value 04/17/2019 135 No results found for: PT RBC (10*6/L) Date Value 04/17/2019 2.59 (L) K (mmol/L) Date Value 04/17/2019 4.1 No results found for: PTINR PLT (10*3/L) Date Value 04/17/2019 80 (L) CALCIUM (mg/dL) Date Value 04/17/2019 8.3 (L) HGB (g/dL) Date Value 04/17/2019 8.8 (L) CL (mmol/L) Date Value 04/17/2019 101 aPTT HCT (%) Date Value 04/17/2019 24.5 (L) BUN (mg/dL) Date Value 04/17/2019 41 (H) No results found for: APTTPAT CREATININE (mg/dL) Date Value 04/17/2019 2.89 (H) Us Retroperitoneal Complete Result Date: 04/13/2019 Echogenic kidneys, compatible with medical renal disease. I, Randy Segal MD. , have reviewed thisstudy and agree with the above report. Current Facility-Administered Medications Medication Dose Route Frequency Last Rate Last Dose [START ON 04/18/2019] predniSONE (DELTASONE) tablet 10 mg 10 mg Oral DAILY magnesium oxide (MAG-OX 400) tablet 400 mg 400 mg Oral BID 400 mg at 0825 multivitamin tablet 1 tablet 1 tablet Oral DAILY 1 tablet at 04/17/19 0825 traMADOL (ULTRAM) tablet 50 mg 50 mg Oral BIDPRN 50 mg at 04/15/19 1828 docusate (COLACE) capsule 100 mg 100 mg Oral BID 100 mg at 04/17/19 0825 ondansetron (ZOFRAN (PF)) injection 4 mg 4 mg Slow IV Push Q6HPRN pantoprazole (PROTONIX) 40 mg in NaCl 0.9% (NS) 100 mL MINI-BAG 40 mg IV Piggyback Q24H 40 mgat 04/16/192048 Current Facility-Administered Medications: [START ON 04/18/2019] predniSONE (DELTASONE) tablet 10 mg, 10 mg, Oral, DAILY , Antonio Bill MD magnesium oxide (MAG-OX 400) tablet 400 mg, 400 mg, Oral, BID, Alex Diaz MD, 400 mg at 04/17/19 0825 multivitamin tablet 1 tablet, 1 tablet, Oral, DAILY, Keli Napier DO, 1 tablet at 825 traMADOL (ULTRAM) tablet 50 mg, 50 mg, Oral, BIDPRN, Alex Diaz MD, 50 mg at 04/15/19 1828 docusate (COLACE) capsule 100 mg, 100 mg, Oral, BID, Alex Diaz MD, 100 mg at 04/17/19 0825 ondansetron (ZOFRAN (PF)) injection 4 mg, 4 mg, Slow IV Push, Q6HPRN, Alex Diaz MD pantoprazole (PROTONIX) 40 mg in NaCl 0.9% (NS) 100 mL MINI-BAG, 40 mg, IV Piggyback, Q24H, Alex Diaz MD, 40 mg at 04/16/192048 lex Power MD - 5:00 PM CDT Hospitalist Progress Note Chief Complaint: AMS SUBJECTIVE: Still altered Cannot get ROS Getting HD today and yesterday CURRENT MEDICATIONS - reviewed. Current Facility-Administered Medications Medication Dose Route Frequency Last Rate Last Dose D10W 10 % IV infusion IV Infusion CONTINUOUS 20 mL/hr at 04/15/19 1009 heparin 1,000 unit/mL injection 5,000 Units 5,000 Units Slow IV Push DIALYSIS ONCE - PT ROOM heparin 5,000 units in NS 1000 mL for irrigation 5,000 Units Irrigation DIALYSIS ONCE - PT ROOM magnesium oxide (MAG-OX 400) tablet 400 mg 400 mg Oral BID Stopped at 0945 NaCl 0.9% (NS) injection 10 mL 10 mL Slow IV Push DIALYSIS ONCE - PT ROOM cefTRIAXone (ROCEPHIN) 1,000 mg in NaCl 0.9% (NS) 50 mL MINI-BAG 1,000 mg IV Piggyback Q24H ABX Stopped at 04/14/19 1200 docusate (COLACE) capsule 100 mg 100 mg Oral BID Stopped at 04/14/19 0800 methylPREDNISolone sod succ (SOLU-MEDROL (PF)) injection 20 mg 20 mg Slow IV Push BID 20 mg at 04/15/19 1007 ondansetron (ZOFRAN (PF)) injection 4 mg 4 mg Slow IV Push Q6HPRN pantoprazole (PROTONIX) 40 mg in NaCl 0.9% (NS) 100 mL MINI-BAG 40 mg IV Piggyback Q24H 40 mgat 04/14/19 2206 PHYSICAL EXAM: BP 102/63 | Pulse 86 | Temp 36.8 C (98.3 F) (Oral) | Resp 19 | Wt 96.5 kg (212 lb 11.9 oz) | SpO2 96% Temp: [35.9 C (96.6 F)-36.8 C (98.3 F)] Heart Rate (monitor): [73-78] Pulse: [73-86] Resp: [11-21] BP: (102-163)/(63-146) MAP (mmHg): [78-146] POCT Blood Glucose (manual): [95 mg/dL] Intake/Output Summary (Last 24 hours) at 04/15/2019 1700 Last data filed at 04/15/2019 0315 Gross per 24 hour Intake Output 900 ml Net -900 ml NAD Anicteric sclera, oral mucosa clear Good air entry b/l + permcath right ij RRR, nl s1s2 Abd soft NT B/l leg edema, + anasarca AAO barely to self, very sleepy, very difficult to arouse Skin warm and dry B/l knee not swollen LABS/IMAGING - reviewed, pertinent results as below: CBC BMP PT/INR WBC (10*3/L) Date Value 04/15/2019 17.82 (H) NA (mmol/L) Date Value 04/15/2019 137 No results found for: PT RBC (10*6/L) Date Value 04/15/2019 2.67 (L) K (mmol/L) Date Value 04/15/2019 4.5 No results found for: PTINR PLT (10*3/L) Date Value 04/15/2019 144 (L) CALCIUM (mg/dL) Date Value 04/15/2019 8.7 HGB (g/dL) Date Value 04/15/2019 9.2 (L) CL (mmol/L) Date Value 04/15/2019 107 aPTT HCT (%) Date Value 04/15/2019 25.0 (L) BUN (mg/dL) Date Value 04/15/2019 72 (H) No results found for: APTTPAT CREATININE (mg/dL) Date Value 04/15/2019 4.02 (H) IMAGING- Hospital Encounter on 04/13/19 FL TIME OR (NON-REPORTABLE) Narrative These images do not require a Radiology diagnostic report. US RETROPERITONEAL COMPLETE Narrative RENAL ULTRASOUND HISTORY: renal failure . TECHNIQUE: Survey ultrasound imaging of the retroperitoneum focused on the kidneys was performed with patient accounting representative images obtained. COMPARISON: None. FINDINGS: Evaluation is limited due to difficult patient positioning. RIGHT KIDNEY: Mildly increased echogenicity. Normal contour and size. The right kidney measures 9.4 x 3.6 x 4.0 cm (71.3 mL). No hydronephrosis. LEFT KIDNEY: Mildly increased echogenicity. Normal contour and size. The left kidney measures 9.5 x 4.6 x 4.0 cm (90.6 mL). No hydronephrosis. BLADDER: Unremarkable. Impression Echogenic kidneys, compatible with medical renal disease. IRandy MD., have reviewed this study and agree with the above report. CT HEAD WO CONTRAST Narrative HISTORY: Subacute neuro deficit. TECHNIQUE: Axial non contrast enhanced study is obtained. DOSE: Up-to-date CT equipment and radiation dose reduction techniques were employed. CTDIvol: 38.51 mGy. DLP: 716 mGy-cm. FINDINGS: No acute intracranial hemorrhage, midline shift, pressure effect on the brain. No abnormal fluid collection detected in the extra-axial compartment. Ventricular system and cortical sulci are prominent, consistent with cerebral and cerebellar atrophy, slightly more affecting the frontal and temporal lobes. Calcifications noted in the basal ganglia region. Left maxillary sinus is more than 90% cloudy due to chronic sinusitis with probable superimposed mild acute left maxillary sinusitis suspected. Remaining paranasal sinuses are clear. Diffuse chronic left mastoiditis noted. CONCLUSION: No acute intracranial findings in non contrast enhanced CT scan of brain. XR CHEST 1 VW Narrative HISTORY: Dialysis permacath placement. TECHNIQUE: Portable AP supine view of the chest is obtained. Comparison made with 04/13/2019 study. FINDINGS: Double lumen dialysis Tessio type catheters noted inserted through right internal jugular with the tips located at mid and distal SVC near cavoatrial junction. No acute pneumonia. No pneumothorax or pleural effusion or pulmonary congestion detected. Cardiac size is within normal limits. CONCLUSIONS: No signs of acute cardiopulmonary disease. XR CHEST 1 VW Narrative HISTORY: Syncope. TECHNIQUE: Portable AP semierect view of the chest is obtained. FINDINGS: No acute pneumonia. No pneumothorax or pleural effusion or pulmonary congestion detected. Cardiac size is within normal limits. Thoracic aorta is elongated and slightly tortuous. CONCLUSIONS: No signs of acute cardiopulmonary disease. Abdominal 1 View - To confirm nasogastric tube placement. Narrative HISTORY: Dobbhoff tube verification. FINDINGS: Portable AP supine view of the abdomen showed Dobbhoff tube with its distal metallic weighted end in the upper body near the fundus of the stomach. Compared with the earlier study, Dobbhoff tube appears to have been pulled slightly out rather than pushing it in. XR ABDOMEN 1 VW Narrative HISTORY: Dobbhoff tube position. FINDINGS: Portable AP supine view of the abdomen is obtained and compared with earlier study done at 1:23 PM. There is no significant change in the position of Dobbhoff tube since the earlier study. Abdominal 1 View - To confirm Dobhoff / Small-bore (non-styleted) enteral feeding tube placement. Narrative HISTORY: Dobbhoff tube placement. FINDINGS: 2 abdominal images were obtained with portable technique which showed Dobbhoff tube with its metallic weighted end in the upper body of the stomach. Dobbhoff tube should be pushed in by additional 6 to 8 in. Intestinal gas pattern is unremarkable. Cholecystectomy noted. Fracture of L1 and L2 vertebral bodies noted with mild sclerosis in the lower two thirds of L1 vertebral body. Fracture also noted in the upper plate of L4. Fractures are probably remote. HISTORY OF PRESENT ILLNESS 78 y/[facility] female [facility] after being discharged a couple of weeks ago from [facility] where she was treated for worsening CKD (there was discussion of HD but never started). She presents this time with altered mental status, lethargy, decreased eating, decreased interaction for the past couple of days. Cannot obtain history from patient as she is altered. 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 Given dose of decadron in ER and started on D10. Hypoglycemia possibly due to patient not taking her chronic prednisone due to being npo due to AMS Gout, hold allopurinol Depression, hold prozac Neuropathy, hold gabapentin Hypertension, uncontrolled, hold oral metoprolol for now Resolved - Bradycardia, consult cardiology Dr. Davis Unclear reason but patient on chronic prednisone 10 mg QD per primary care physician. Unclear if this is for respiratory reasons or something else. Hypothermia, resolved Leukocytosis Anemia Hypomagnesemia, replace ? Dysphagia Progressive advanced dementia. CT head done on admission. Mental status maybe? Minimally improving. Still only arousable, alert, questionable oriented to self. Unclear if this is uremia, progressive advanced dementia. Urine cultures shows contaminated growth. Blood cultures negative. Procal only 0.2 so infectious etiology unlikely. IV ceftriaxone day 3, dc abx. F/u cultures. Wbc elevated due to iv solumedrol and chronic use of steroids. Extensive family discussion. If patient cannot participate in PT by Thursday and no improvement in mental status, need to have another family meeting Thursday for possible discussion about hospice home though this is unclear. Multiple children involved. Please make sure eldest child and grand daughter is including. Passed bedside swallow. Initial plan was for dobhoff and TF but will start patient on pureed diet with thick liquids, 10/19, aspiration precautions, speech consult. Check phos, mag in AM Cont D10 at 20/hr, gluc q4 hr Continue IMU monitoring for another day Continue chiang HD started 04/14/19 daily till Thursday and then Nephrology consult Dr. Napier Surgery consult Dr. Moore, s/p right IJ vein Permcath for HD on 04/14/19. If patient doesn't tolerate PO and family wants to be aggressive, please discuss about peg tube options Thursday Cards consult Dr. Davis IV protonix Iv solumedrol instead of her chronic prednisone F/u blood and urine cultures Hold bp meds for now dvt proph hep subq Full Code, advance care planning discussed with family on admission, surrogate decision maker daughter Had advance care planning and potential hospice conversation today for 40 minutes with family members in room Home meds reviewed [facility] I have asked [employer]ER to get hospital records Please reviewed records in chart tomorrow Asked RN to have PT re-evaluate patient on Thursday and Thursday. If we can get appropriate PT evaluation where patient is participatory she can go to SNF. SW on board. If patient cannot participate withPT, only option it seems would be self-pay or home. Discussed with familyi. A month ago patient was walking with walker at home with daughter. Jaylen Spence RN - 04/15/2019 3:53 PM CDTPt approved for dialysis chair time at [facility] on Thursday at 0945am. Jaylen Kohler RN, BSN [facility] Clinical Research Scientist O [phone] F [phone] Keli Kruse DO - 04/15/2019 10:39 AM CDT Nephrology Progress Note Admit Date: 04/13/2019 CPS stable without CP or SOB. No acute events overnight. Limited IH/ ROS due to AMS. Vitals and medications reviewed in the chart. Blood work and imaging reviewed in the chart. Gen: NAD HEENT: NCAT. MMM. Neck: Supple. No LAD. Lungs: CTA CVS: RRR Abd: Soft. NT. +BS Ext: No C/C. Hip Edema 1+ Skin: No rash Psych: Somnolent Neuro: No speech A/ Will Zack Hodge is a 78 year old female ESRD. CVC placed and HD initiated [id number]. Diastolic CHF, A/C. HTN with CKD/ CHF. Gout. Acute cystitis. Toxic metabolic encephalopathy. P/ Continue current POC and Medications other than the changes below. Second HD treatment today. Next HD tomorrow. Give Procrit today. Arrange for HD placement. Continue abx. Plan for Dobhoff tube to improve nutrition. No NSAIDs. AM labs. Daily weight. Case discussed with Dr. Diaz. Patient Vitals for the past 24 hrs: BP Temp Temp src Pulse Resp SpO2 Weight 04/14/19 1707 (!) 110/91 36.4 C (97.5 F) Axillary 76 16 99.5 kg (219 lb 5.7 oz) 04/14/19 1705 (!) 106/94 04/14/19 1700 (!) 134/99 75 04/14/19 1630 (!) 120/94 75 04/14/19 1600 122/70 36.8 C (98.3 F) Axillary 65 13 97 % 04/14/19 1535 112/81 04/14/19 1530 97/62 73 04/14/19 1500 (!) 141/93 71 04/14/19 1458 109/85 70 04/14/19 1450 118/75 68 15 99.8 kg (220 lb 0.3 oz) 04/14/19 1412 (!) 146/99 12 04/14/19 1407 104/77 68 12 90 % 04/14/19 1406 95 % 04/14/19 1404 94 % 04/14/19 1402 119/85 68 12 94 % 04/14/19 1400 126/72 72 12 94 % 04/14/19 1351 96 % 04/14/19 1350 126/86 88 12 98 % 04/14/19 1345 136/82 97 12 96 % 04/14/19 1342 (!) 149/85 73 12 98 % 04/14/19 1341 96 % 04/14/19 1340 97 % 04/14/19 1339 97 % 04/14/19 1331 (!) 145/56 36.1 C (97 F) TEMPORAL ART 92 12 90 % 04/14/19 1105 127/77 36.4 C (97.6 F) TEMPORAL ART 66 12 98 % 04/14/19 1010 (!) 142/98 20 100.7 kg (222 lb) 04/14/19 1005 (!) 144/98 20 04/14/19 1000 20 04/14/19 0800 (!) 167/134 35.7 C (96.3 F) Axillary 66 11 91 % 04/14/19 0720 16 96 % 04/14/19 0600 (!) 159/88 67 9 92 % 04/14/19 0500 (!) 128/101 72 04/14/19 0400 (!) 149/68 36.6 C (97.8 F) Axillary 68 15 94 % 04/14/19 0220 (!) 142/97 69 21 04/14/19 0211 (!) 168/100 15 95 % 04/14/19 0030 128/83 36.1 C (96.9 F) Axillary 70 22 93 % 04/14/19 0025 128/83 70 24 100 % 04/13/19 2200 (!) 121/95 66 11 96 % 04/13/19 2100 (!) 105/91 35.8 C (96.5 F) Axillary 156 12 98 % 04/13/19 2000 92/70 106 13 96 % Intake/Output Summary (Last 24 hours) at 04/14/2019 1801 Last data filed at 04/14/2019 1714 Gross per 24 hour Intake 100 ml Output 950 ml Net -850 ml CBC BMP PT/INR WBC (10*3/L) Date Value 04/15/2019 17.82 (H) NA (mmol/L) Date Value 04/15/2019 137 No results found for: PT RBC (10*6/L) Date Value 04/15/2019 2.67 (L) K (mmol/L) Date Value 04/15/2019 4.5 No results found for: PTINR PLT (10*3/L) Date Value 04/15/2019 144 (L) CALCIUM (mg/dL) Date Value 04/15/2019 8.7 HGB (g/dL) Date Value 04/15/2019 9.2 (L) CL (mmol/L) Date Value 04/15/2019 107 aPTT HCT (%) Date Value 04/15/2019 25.0 (L) BUN (mg/dL) Date Value 04/15/2019 72 (H) No results found for: APTTPAT CREATININE (mg/dL) Date Value 04/15/2019 4.02 (H) Us Retroperitoneal Complete Result Date: 04/13/2019 Echogenic kidneys, compatible with medical renal disease. I, Randy Segal MD. , have reviewed thisstudy and agree with the above report. Current Facility-Administered Medications Medication Dose Route Frequency Last Rate Last Dose D10W 10 % IV infusion IV Infusion CONTINUOUS 20 mL/hr at 04/15/192001 heparin 5,000 units in NS 1000 mL for irrigation 5,000 Units Irrigation DIALYSIS ONCE - PT ROOM magnesium oxide (MAG-OX 400) tablet 400 mg 400 mg Oral BID 400 mg at 1956 NaCl 0.9% (NS) injection 10 mL 10 mL Slow IV Push DIALYSIS ONCE - PT ROOM traMADOL (ULTRAM) tablet 50 mg 50 mg Oral BIDPRN 50 mg at 04/15/191827 docusate (COLACE) capsule 100 mg 100 mg Oral BID 100 mg at 04/15/191954 methylPREDNISolone sod succ (SOLU-MEDROL (PF)) injection 20 mg 20 mg Slow IV Push BID 20 mg at 04/15/191999 ondansetron (ZOFRAN (PF)) injection 4 mg 4 mg Slow IV Push Q6HPRN pantoprazole (PROTONIX) 40 mg in NaCl 0.9% (NS) 100 mL MINI-BAG 40 mg IV Piggyback Q24H 40 mgat 04/15/191955 Current Facility-Administered Medications: D10W 10 % IV infusion, , IV Infusion, CONTINUOUS, Alex Diaz MD, Last Rate: 20 mL/hr at 04/15/192001 heparin 5,000 units in NS 1000 mL for irrigation, 5,000 Units, Irrigation, DIALYSIS ONCE - PT ROOM, Agchriso Keli G, DO magnesium oxide (MAG-OX 400) tablet 400 mg, 400 mg, Oral, BID, Alex Diaz MD, 400 mg at 04/15/191956 NaCl 0.9% (NS) injection 10 mL, 10 mL, Slow IV Push, DIALYSIS ONCE - PT ROOM, AgKeli laguna G,DO traMADOL (ULTRAM) tablet 50 mg, 50 mg, Oral, BIDPRN, Alex Diaz MD, 50 mg at 04/15/191827 docusate (COLACE) capsule 100 mg, 100 mg, Oral, BID, Alex Diaz MD, 100 mg at 04/15/191954 methylPREDNISolone sod succ (SOLU-MEDROL (PF)) injection 20 mg, 20 mg, Slow IV Push, BID, Alex Diaz MD, 20 mg at 04/15/191999 ondansetron (ZOFRAN (PF)) injection 4 mg, 4 mg, Slow IV Push, Q6HPRN, Alex Diaz MD pantoprazole (PROTONIX) 40 mg in NaCl 0.9% (NS) 100 mL MINI-BAG, 40 mg, IV Piggyback, Q24H, Alex Diaz MD, 40 mg at 04/15/191955 Jaylen Spence RN - 04/15/2019 9:25 AM CDTClinicals faxed to [facility] P: [phone], F: [phone]. Awaiting acceptance and chair time. Jaylen Kohler RN, BSN [facility] Clinical Research Scientist [phone] Tricia Alfonso LBSW - 04/14/2019 11:51 AM CDTSubjective Patient ID: Brandon Hodge is a 78 year old female. Care Management Social Functional Assessment Patient Name: Brandon Hodge Age: [age] year old Sex: female Previous admit date: N/A Current diagnosis and co-morbidities: UREMIA;ALTERED MENTAL STATUS Readmission Questions: Was patient discharged from any acute care hospital within the last 30 days: No Social Functional Assessment: Primary language spoken/preferred: [place] Mental Status: Alert & Oriented to Person,Place & Time Information given by: Child Name and phone number of person giving information: Fidel Machado dtr Patient's support system: Child;Other Name and number of support system: Fidel Machado dtr [phone] and yaa Moyer Primary Director Of Content And Programming: Self;Other MPOA: Same as support system Living Arrangement: [address] [address] () [phone] (F) [phone] Address of living arrangement : [address] [facility] [address] Persons living in home: Self;Other Names & numbers of persons living in home: SNF Barriers to returning home: None Baseline functional status- ambulation: Requires minimal to moderate assistance Functional status-baseline personal care: Requires minimal to moderate assistance Baseline functional status- grocery shopping: Dependent Functional status-baseline housekeeping: Dependent Functional status-baseline meal prep: Dependent Current functional status same as prior: Yes Do you have a PCP?: Yes Name of PCP: Dr. Levy [facility] Agency: No Provider Services: Yes Provider Agency: [facility] Provider agency days and hours: Mon-Fri 4 hours per day DME Company: No Equipment: Walker;Shower Chair Hemodialysis: No Community resources utilized: None Funding Resources: Medicare Replacement;Medicaid Medicare Replacement name and information: [facility] Prescription coverage plan: Medicaid-3 slots Pharmacy where meds are filled: Other Other pharmacy: [facility] Anticipated services prior to disharge: Continue Medical Eval Expected mode of discharge transportation: Wheelchair van Additional Recommendations for DC: Medical clearance and arrange for outpatient dialysis. [facility] Additional info required for discharge planning: Pending medical evaluation Recommended discharge plan: Return to facility;Other SFA Complete: Social Functional Assessment complete: Yes Alcohol Use Screening (AUDIT-C) How often do you have a drink containing alcohol?: Never SCORE: 0 Role of Care Management explained. Any issues or concerns with obtaining/affording your medications at home: no. Are you or your support system able to merchandise pickup/receiving associate medications at discharge: yes. Review of Systems Objective Physical Exam Assessment/Plan Return to [facility] with new HD KACY Banda Miniature Model Maker - Care Management [facility] [phone] [email or web address] Alex Acuna MD - 04/14/2019 9:30 AM CDT Hospitalist Progress Note Chief Complaint: AMS SUBJECTIVE: Still altered Cannot get ROS Seen before procedure and dialysis start CURRENT MEDICATIONS - reviewed. Current Facility-Administered Medications Medication Dose Route Frequency Last Rate Last Dose diphenhydrAMINE (BENADRYL) injection 12.5 mg 12.5 mg Slow IV Push DIALYSIS ONCE PRN - PT ROOM heparin 10,000 Units in NaCl 0.9% (NS) 100 mL 10,000 Units Intravenous ONCE Stopped at 04/14/19 1000 heparin 5,000 units in NS 1000 mL for irrigation 5,000 Units Irrigation DIALYSIS ONCE - PT ROOM Stopped at 04/14/19 1400 NaCl 0.9% (NS) injection 10 mL 10 mL Slow IV Push DIALYSIS ONCE - PT ROOM NaCl 0.9% (NS) IV infusion 1,000 mL 1,000 mL IV Infusion CONTINUOUS 42 mL/ hr at 04/14/19 1138 1,000 mL at 04/14/19 1138 NaCl 0.9% (NS) IV infusion 500 mL 500 mL IV Infusion CONTINUOUS 42 mL/hr at 04/14/19 1145 500 mL at 04/14/19 1145 ondansetron (ZOFRAN (PF)) injection 4 mg 4 mg Slow IV Push DIALYSIS ONCE PRN - PT ROOM cefTRIAXone (ROCEPHIN) 1,000 mg in NaCl 0.9% (NS) 50 mL MINI-BAG 1,000 mg IV Piggyback Q24H ABX Stopped at 04/14/19 1200 D10W 10 % IV infusion IV Infusion CONTINUOUS 30 mL/hr at 04/13/19 1744 docusate (COLACE) capsule 100 mg 100 mg Oral BID Stopped at 04/14/19 0800 furosemide (LASIX) injection 60 mg 60 mg Slow IV Push Q12H 60 mg at 04/14 0825 heparin injection 5,000 Units 5,000 Units Subcutaneous Q12H Stopped at 0827 methylPREDNISolone sod succ (SOLU-MEDROL (PF)) injection 20 mg 20 mg Slow IV Push BID 20 mg at 04/14/19 0825 ondansetron (ZOFRAN (PF)) injection 4 mg 4 mg Slow IV Push Q6HPRN pantoprazole (PROTONIX) 40 mg in NaCl 0.9% (NS) 100 mL MINI-BAG 40 mg IV Piggyback Q24H 40 mgat 04/13/19 2019 PHYSICAL EXAM: BP (!) 110/91 | Pulse 76 | Temp 36.4 C (97.5 F) (Axillary) | Resp 16 | Wt 99.5 kg (219 lb 5.7 oz) | SpO2 97% Temp: [35.7 C (96.3 F)-36.8 C (98.3 F)] Heart Rate (monitor): [66-92] Pulse: [65-156] Resp: [9-24] BP: (92-168)/(56-134) MAP (mmHg): [69-116] Intake/Output Summary (Last 24 hours) at 04/14/20191916 Last data filed at 04/14/2019 1714 Gross per 24 hour Intake 100 ml Output 950 ml Net -850 ml NAD Anicteric sclera, oral mucosa clear Good air entry b/l RRR, nl s1s2 Abd soft NT B/l leg edema, + anasarca AAO barely to self, very sleepy, very difficult to arouse Skin warm and dry B/l knee not swollen LABS/IMAGING - reviewed, pertinent results as below: CBC BMP PT/INR WBC (10*3/L) Date Value 04/13/2019 13.17 (H) NA (mmol/L) Date Value 04/14/2019 136 No results found for: PT RBC (10*6/L) Date Value 04/13/2019 3.01 (L) K (mmol/L) Date Value 04/14/2019 4.6 No results found for: PTINR PLT (10*3/L) Date Value 04/13/2019 135 (L) CALCIUM (mg/dL) Date Value 04/14/2019 9.0 HGB (g/dL) Date Value 04/13/2019 10.2 (L) CL (mmol/L) Date Value 04/14/2019 107 aPTT HCT (%) Date Value 04/13/2019 29.4 (L) BUN (mg/dL) Date Value 04/14/2019 88 (H) No results found for: APTTPAT CREATININE (mg/dL) Date Value 04/14/2019 4.75 (H) IMAGING- Hospital Encounter on 04/13/19 FL TIME OR (NON-REPORTABLE) Narrative These images do not require a Radiology diagnostic report. US RETROPERITONEAL COMPLETE Narrative RENAL ULTRASOUND HISTORY: renal failure . TECHNIQUE: Survey ultrasound imaging of the retroperitoneum focused on the kidneys was performed with patient accounting representative images obtained. COMPARISON: None. FINDINGS: Evaluation is limited due to difficult patient positioning. RIGHT KIDNEY: Mildly increased echogenicity. Normal contour and size. The right kidney measures 9.4 x 3.6 x 4.0 cm (71.3 mL). No hydronephrosis. LEFT KIDNEY: Mildly increased echogenicity. Normal contour and size. The left kidney measures 9.5 x 4.6 x 4.0 cm (90.6 mL). No hydronephrosis. BLADDER: Unremarkable. Impression Echogenic kidneys, compatible with medical renal disease. I, Randy Segal MD., have reviewed this study and agree with the above report. CT HEAD WO CONTRAST Narrative HISTORY: Subacute neuro deficit. TECHNIQUE: Axial non contrast enhanced study is obtained. DOSE: Up-to-date CT equipment and radiation dose reduction techniques were employed. CTDIvol: 38.51 mGy. DLP: 716 mGy-cm. FINDINGS: No acute intracranial hemorrhage, midline shift, pressure effect on the brain. No abnormal fluid collection detected in the extra-axial compartment. Ventricular system and cortical sulci are prominent, consistent with cerebral and cerebellar atrophy, slightly more affecting the frontal and temporal lobes. Calcifications noted in the basal ganglia region. Left maxillary sinus is more than 90% cloudy due to chronic sinusitis with probable superimposed mild acute left maxillary sinusitis suspected. Remaining paranasal sinuses are clear. Diffuse chronic left mastoiditis noted. CONCLUSION: No acute intracranial findings in non contrast enhanced CT scan of brain. XR CHEST 1 VW Narrative HISTORY: Dialysis permacath placement. TECHNIQUE: Portable AP supine view of the chest is obtained. Comparison made with 04/13/2019 study. FINDINGS: Double lumen dialysis Tessio type catheters noted inserted through right internal jugular with the tips located at mid and distal SVC near cavoatrial junction. No acute pneumonia. No pneumothorax or pleural effusion or pulmonary congestion detected. Cardiac size is within normal limits. CONCLUSIONS: No signs of acute cardiopulmonary disease. XR CHEST 1 VW Narrative HISTORY: Syncope. TECHNIQUE: Portable AP semierect view of the chest is obtained. FINDINGS: No acute pneumonia. No pneumothorax or pleural effusion or pulmonary congestion detected. Cardiac size is within normal limits. Thoracic aorta is elongated and slightly tortuous. CONCLUSIONS: No signs of acute cardiopulmonary disease. 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 Given dose of decadron in ER and started on D10. Hypoglycemia possibly due to patient not taking her chronic prednisone due to being npo due to AMS Gout, hold allopurinol Depression, hold prozac Neuropathy, hold gabapentin Hypertension, uncontrolled, hold oral metoprolol Bradycardia, consult cardiology Dr. Davis Unclear reason but patient on chronic prednisone 10 mg QD per primary care physician. Unclear if this is for respiratory reasons or something else. Hypothermia Leukocytosis Anemia Full admission d10 fing gluc q1-2 hr IMU monitoring IV lasix, chiang per nephrology Surgery consult Dr. Moore, Tunneled perm cath to be placed tomorrow lunch Nephrology consult Dr. Petersen, patient to start dialysis tomorrow. Discussed with nephrology who saw patient, no urgency to get HD today Cards consult Dr. Davis IV protonix Iv solumedrol instead of her chronic prednisone F/u blood and urine cultures IV ceftriaxone day 2 dvt proph hep subq Full Code, advance care planning discussed with family including daughter at bedside for 17 minutes,surrogate decision maker daughter Home meds reviewed [facility]. I have asked DE ICER FINISHER to get hospital records NPO for now until more awake Keli Kruse DO - 04/14/2019 8:00 AM CDT Nephrology Progress Note Admit Date: 04/13/2019 CPS stable without CP or SOB. No acute events overnight. Limited IH/ ROS due to AMS. Vitals and medications reviewed in the chart. Blood work and imaging reviewed in the chart. Gen: NAD HEENT: NCAT. MMM. Neck: Supple. No LAD. Lungs: CTA CVS: RRR Abd: Soft. NT. +BS Ext: No C/C. LE Edema 1+ Skin: No rash Psych: Somnolent Neuro: Normal speech A/ Will Zack Hodge is a 78 year old female ESRD. CVC placed and HD initiated [id number]. Diastolic CHF, A/C. HTN with CKD/ CHF. Gout. Acute cystitis. Toxic metabolic encephalopathy. P/ Continue current POC and Medications other than the changes below. Arrange for HD CVC placement today. Arrange for first HD today. Next HD tomorrow. Arrange for HD placement. Continue abx. Hold furosemide. No NSAIDs. AM labs. Daily weight. Case discussed with Dr. Diaz. Patient Vitals for the past 24 hrs: BP Temp Temp src Pulse Resp SpO2 Weight 04/14/19 1707 (!) 110/91 36.4 C (97.5 F) Axillary 76 16 99.5 kg (219 lb 5.7 oz) 04/14/19 1705 (!) 106/94 04/14/19 1700 (!) 134/99 75 04/14/19 1630 (!) 120/94 75 04/14/19 1600 122/70 36.8 C (98.3 F) Axillary 65 13 97 % 04/14/19 1535 112/81 04/14/19 1530 97/62 73 04/14/19 1500 (!) 141/93 71 04/14/19 1458 109/85 70 04/14/19 1450 118/75 68 15 99.8 kg (220 lb 0.3 oz) 04/14/19 1412 (!) 146/99 12 04/14/19 1407 104/77 68 12 90 % 04/14/19 1406 95 % 04/14/19 1404 94 % 04/14/19 1402 119/85 68 12 94 % 04/14/19 1400 126/72 72 12 94 % 04/14/19 1351 96 % 04/14/19 1350 126/86 88 12 98 % 04/14/19 1345 136/82 97 12 96 % 04/14/19 1342 (!) 149/85 73 12 98 % 04/14/19 1341 96 % 04/14/19 1340 97 % 04/14/19 1339 97 % 04/14/19 1331 (!) 145/56 36.1 C (97 F) TEMPORAL ART 92 12 90 % 04/14/19 1105 127/77 36.4 C (97.6 F) TEMPORAL ART 66 12 98 % 04/14/19 1010 (!) 142/98 20 100.7 kg (222 lb) 04/14/19 1005 (!) 144/98 20 04/14/19 1000 20 04/14/19 0800 (!) 167/134 35.7 C (96.3 F) Axillary 66 11 91 % 04/14/19 0720 16 96 % 04/14/19 0600 (!) 159/88 67 9 92 % 04/14/19 0500 (!) 128/101 72 04/14/19 0400 (!) 149/68 36.6 C (97.8 F) Axillary 68 15 94 % 04/14/19 0220 (!) 142/97 69 21 04/14/19 0211 (!) 168/100 15 95 % 04/14/19 0030 128/83 36.1 C (96.9 F) Axillary 70 22 93 % 04/14/19 0025 128/83 70 24 100 % 04/13/19 2200 (!) 121/95 66 11 96 % 04/13/19 2100 (!) 105/91 35.8 C (96.5 F) Axillary 156 12 98 % 04/13/19 2000 92/70 106 13 96 % Intake/Output Summary (Last 24 hours) at 04/14/2019 1801 Last data filed at 04/14/2019 1714 Gross per 24 hour Intake 100 ml Output 950 ml Net -850 ml CBC BMP PT/INR WBC (10*3/L) Date Value 04/13/2019 13.17 (H) NA (mmol/L) Date Value 04/14/2019 136 No results found for: PT RBC (10*6/L) Date Value 04/13/2019 3.01 (L) K (mmol/L) Date Value 04/14/2019 4.6 No results found for: PTINR PLT (10*3/L) Date Value 04/13/2019 135 (L) CALCIUM (mg/dL) Date Value 04/14/2019 9.0 HGB (g/dL) Date Value 04/13/2019 10.2 (L) CL (mmol/L) Date Value 04/14/2019 107 aPTT HCT (%) Date Value 04/13/2019 29.4 (L) BUN (mg/dL) Date Value 04/14/2019 88 (H) No results found for: APTTPAT CREATININE (mg/dL) Date Value 04/14/2019 4.75 (H) Us Retroperitoneal Complete Result Date: 04/13/2019 Echogenic kidneys, compatible with medical renal disease. IRandy MD. , have reviewed thisstudy and agree with the above report. Current Facility-Administered Medications Medication Dose Route Frequency Last Rate Last Dose diphenhydrAMINE (BENADRYL) injection 12.5 mg 12.5 mg Slow IV Push DIALYSIS ONCE PRN - PT ROOM heparin 10,000 Units in NaCl 0.9% (NS) 100 mL 10,000 Units Intravenous ONCE Stopped at 04/14/19 1000 heparin 5,000 units in NS 1000 mL for irrigation 5,000 Units Irrigation DIALYSIS ONCE - PT ROOM Stopped at 04/14/19 1400 NaCl 0.9% (NS) injection 10 mL 10 mL Slow IV Push DIALYSIS ONCE - PT ROOM NaCl 0.9% (NS) IV infusion 1,000 mL 1,000 mL IV Infusion CONTINUOUS 42 mL/ hr at 04/14/19 1138 1,000 mL at 04/14/19 1138 NaCl 0.9% (NS) IV infusion 500 mL 500 mL IV Infusion CONTINUOUS 42 mL/hr at 04/14/19 1145 500 mL at 04/14/19 1145 ondansetron (ZOFRAN (PF)) injection 4 mg 4 mg Slow IV Push DIALYSIS ONCE PRN - PT ROOM cefTRIAXone (ROCEPHIN) 1,000 mg in NaCl 0.9% (NS) 50 mL MINI-BAG 1,000 mg IV Piggyback Q24H ABX Stopped at 04/14/19 1200 D10W 10 % IV infusion IV Infusion CONTINUOUS 30 mL/hr at 04/13/19 1744 docusate (COLACE) capsule 100 mg 100 mg Oral BID Stopped at 04/14/19 0800 furosemide (LASIX) injection 60 mg 60 mg Slow IV Push Q12H 60 mg at 04/14 0825 heparin injection 5,000 Units 5,000 Units Subcutaneous Q12H Stopped at 0827 methylPREDNISolone sod succ (SOLU-MEDROL (PF)) injection 20 mg 20 mg Slow IV Push BID 20 mg at 04/14/19 0825 ondansetron (ZOFRAN (PF)) injection 4 mg 4 mg Slow IV Push Q6HPRN pantoprazole (PROTONIX) 40 mg in NaCl 0.9% (NS) 100 mL MINI-BAG 40 mg IV Piggyback Q24H 40 mgat 04/13/19 2019 Current Facility-Administered Medications: diphenhydrAMINE (BENADRYL) injection 12.5 mg, 12.5 mg, Slow IV Push, DIALYSIS ONCE PRN - PT ROOM, Aglieco, Keli G, DO heparin 10,000 Units in NaCl 0.9% (NS) 100 mL, 10,000 Units, Intravenous, ONCE, Thuy Moore MD, Stopped at 04/14/19 1000 heparin 5,000 units in NS 1000 mL for irrigation, 5,000 Units, Irrigation, DIALYSIS ONCE - PT ROOM, Aglieco, Keli G, DO, Stopped at 04/14/19 1400 NaCl 0.9% (NS) injection 10 mL, 10 mL, Slow IV Push, DIALYSIS ONCE - PT ROOM, Aglieco, Keli G,DO NaCl 0.9% (NS) IV infusion 1,000 mL, 1,000 mL, IV Infusion, CONTINUOUS, Fabiano Valentin FLEET OPERATIONS MANAGER, Last Rate: 42 mL/hr at 04/14/19 1138, 1,000 mL at 04/14 1138 NaCl 0.9% (NS) IV infusion 500 mL, 500 mL, IV Infusion, CONTINUOUS, Rick Minor FLEET OPERATIONS MANAGER, Last Rate: 42 mL/hr at 04/14/19 1145, 500 mL at 1145 ondansetron (ZOFRAN (PF)) injection 4 mg, 4 mg, Slow IV Push, DIALYSIS ONCE PRN - PT ROOM, Keli Napier G, DO cefTRIAXone (ROCEPHIN) 1,000 mg in NaCl 0.9% (NS) 50 mL MINI-BAG, 1,000 mg , IV Piggyback, Q24H ABX, Alex Diaz MD, Stopped at 04/14/19 1200 D10W 10 % IV infusion, , IV Infusion, CONTINUOUS, Caesar Petersen MD, Last Rate: 30 mL/hr at 04/13/19 1744 docusate (COLACE) capsule 100 mg, 100 mg, Oral, BID, Alex Diaz MD, Stopped at 04/14/19 0800 furosemide (LASIX) injection 60 mg, 60 mg, Slow IV Push, Q12H, Caesar Petersen MD, 60 mg at 04/14/19 0825 heparin injection 5,000 Units, 5,000 Units, Subcutaneous, Q12H, Alex Diaz MD, Stopped at 04/14/19 0827 methylPREDNISolone sod succ (SOLU-MEDROL (PF)) injection 20 mg, 20 mg, Slow IV Push, BID, Alex Diaz MD, 20 mg at 04/14/19 0825 ondansetron (ZOFRAN (PF)) injection 4 mg, 4 mg, Slow IV Push, Q6HPRN, Alex Diaz MD pantoprazole (PROTONIX) 40 mg in NaCl 0.9% (NS) 100 mL MINI-BAG, 40 mg, IV Piggyback, Q24H, Alex Diaz MD, 40 mg at 04/13/19 2019 documented in this encounter Plan of Treatment Name Type Priority Associated Date/Time Diagnoses Transfuse Packed Transfusion Routine 04/30/2019 5:06 RBC (in units): 1 Administration AM CDT Units~As soon as possible; Infuse Each Unit Over: 2 Hours Transfuse Packed Transfusion Routine 04/30/2019 5:06 RBC (in units) Administration AM CDT Name Type Priority Associated Diagnoses Order Schedule URINE CULTURE LAB Routine Fatigue, unspecified ONCE for 1 type Occurrences starting 04/13/2019 until 04/13/2019 EKG-12 LEAD ROUTINE HEART STATION Routine ONCE for 1 Occurrences starting 04/14/2019 until 04/14/2019 POCT Glucose LAB Routine ONCE for 1 Occurrences starting 04/14/2019 until 04/14/2019 EKG-12 LEAD ROUTINE HEART STATION Routine ONCE for 1 Occurrences starting 04/14/2019 until 04/14/2019 EKG-12 LEAD ROUTINE HEART STATION STAT ONCE for 1 Occurrences starting 04/18/2019 until 04/18/2019 EKG-12 LEAD ROUTINE HEART STATION HALI ONCE for 1 Occurrences starting 04/19/2019 until 04/19/2019 EKG-12 LEAD ROUTINE HEART STATION STAT ONCE for 1 Occurrences starting 04/21/2019 until 04/21/2019 SPUTUM CULTURE LAB HALI ONCE for 1 Occurrences starting 04/21/2019 until 04/21/2019 URINALYSIS LAB HALI ONCE for 1 Occurrences starting 04/21/2019 until 04/21/2019 URINE CULTURE LAB HALI ONCE for 1 Occurrences starting 04/21/2019 until 04/21/2019 OSMOLALITY URINE LAB HALI ONCE for 1 Occurrences starting 04/21/2019 until 04/21/2019 SODIUM, URINE RANDOM LAB HALI ONCE for 1 Occurrences starting 04/21/2019 until 04/21/2019 PROFILE / HEMOGRAM LAB Routine EVERY 6 HOURS (START TIME ADJUSTABLE) START TIME ADJUSTABLE for 3 Days starting 04/28/2019 until 05/01/2019, 10 completed AC PANEL 21 + LACTIC LAB Routine ONCE for 1 ACID Occurrences starting 05/05/2019 until 05/05/2019 PROTHROMBIN TIME / LAB Routine ONCE for 1 INR Occurrences starting 05/09/2019 until 05/09/2019 Health Maintenance Due Date Last Done Comments DTaP,Tdap,and Td Vaccines (1 - Tdap) 1959 Zoster Recombinant Vaccine (SHINGRIX) (1 of 2) 1990 Medicare Wellness Visit 2005 Osteoporosis Screening 2005 PNEUMOCOCCAL VACCINES 65+ (1 of 2 - PCV13) 2005 INFLUENZA VACCINE 06/19/2019 documented as of this encounter Implants Implanted Type Area Foundry Metallurgist Device Shelf Model / Identifier Expiration Serial / Date Lot Micronester COIL Right: [facility] 03/11/2024 [id number] / Implanted: Qty: 1 on 05/09/2019 by Chaparro Hernandez DO at [facility] Abdomen [id number] / [id number] Micronester COIL Right: [facility] 03/11/2024 [id number] / Implanted: Qty: 1 on 05/09/2019 by Chaparro Hernandez DO at [facility] Abdomen [id number] / [id number] Micronester COIL Right: [facility] 03/11/2024 [id number] / Implanted: Qty: 1 on 05/09/2019 by Chaparro Hernandez DO at [facility] Abdomen [id number] / [id number] Micronester COIL Right: [facility] 03/10/2024 [id number] / Implanted: Qty: 1 on 05/09/2019 by Chaparro Hernandez DO at [facility] Abdomen [id number] / [id number] Azur Peripheral Coil COIL Right: [facility] 11/18/2023 [id number] / Implanted: Qty: 1 on 05/09/2019 by Chaparro Hernandez DO at [facility] Abdomen [id number] / [id number] Azur Peripheral Coil COIL Right: [employer] 12/26/2023 [id number] / Implanted: Qty: 1 on 05/09/2019 by Chaparro Hernandez DO at [facility] Abdomen [id number] / [id number] Azur Peripheral Coil COIL Right: [facility] 01/17/2024 [id number] / Implanted: Qty: 1 on 05/09/2019 by Chaparro Hernandez DO at [facility] Abdomen [id number] / [id number] Azur Peripheral Coil COIL Right: [facility] 06/18/2023 [id number] / Implanted: Qty: 1 on 05/09/2019 by Chaparro Hernandez DO at [facility] Abdomen [id number] / [id number] Micronester COIL Right: [facility] 12/10/2023 [id number] / Implanted: Qty: 1 on 05/09/2019 by Chaparro Hernandez DO at [facility] Abdomen [id number] / [id number] Micronester COIL Right: [facility] 02/19/2024 [id number] / Implanted: Qty: 1 on 05/09/2019 by Chaparro Hernandez DO at [facility] Abdomen [id number] / [id number] Micronester COIL Right: [facility] 03/10/2024 [id number] / Implanted: Qty: 1 on 05/09/2019 by Chaparro Hernandez DO at [facility] Abdomen [id number] / [id number] Micronester COIL Right: [facility] 03/11/2024 [id number] / Implanted: Qty: 1 on 05/09/2019 by Chaparro Hernandez DO at [facility] Abdomen [id number] / [id number] Micronester COIL Right: [facility] 02/19/2024 [id number] / Implanted: Qty: 1 on 05/09/2019 by Chaparro Hernandez DO at [facility] Abdomen [id number] / [id number] Micronester COIL Right: [facility] 03/11/2024 [id number] / Implanted: Qty: 1 on 05/09/2019 by Chaparro Hernandez DO at [facility] Abdomen [id number] / [id number] Micronester COIL Right: [facility] 03/11/2024 [id number] / Implanted: Qty: 1 on 05/09/2019 by Chaparro Hernandez DO at [facility] Abdomen [id number] / [id number] Catheter Hemosplit Hemodialysis [facility] 14.5fr 27cm Bard #[id number] - Sna Dialysis N/A: Chest Bard 10/18/2020 [id number] / Implanted: Qty: 1 on 04/14/2019 by Thuy Moore MD at [facility] Catheter NA / [id number] Angioseal Suture Right: [employer] 12/14/2019 [id number] / Implanted: Qty: 1 on 05/09/2019 by Chaparro Hernandez DO at [facility] Groin [id number] / [id number] documented as of this encounter Procedures Procedure Name Priority Date/Time Associated Comments Diagnosis PROFILE / HEMOGRAM Routine 05/15/2019 Results for 6:42 AM CDT this procedure are in the results section. BASIC METABOLIC PANEL (NA, K, Routine 05/15/2019 Results for CL, CO2, GLUCOSE, BUN, 6:42 AM CDT this CREATININE, CA) procedure are in the results section. ACTIVATED PARTIAL THRMPLAS TEJAS Routine 05/15/2019 Results for 6:41 AM CDT this procedure are in the results section. ACTIVATED PARTIAL THRMPLAS TEJAS Routine 05/14/2019 Results for 6:28 AM CDT this procedure are in the results section. PROFILE / HEMOGRAM Routine 05/14/2019 Results for 6:28 AM CDT this procedure are in the results section. BASIC METABOLIC PANEL (NA, K, Routine 05/14/2019 Results for CL, CO2, GLUCOSE, BUN, 6:28 AM CDT this CREATININE, CA) procedure are in the results section. ACTIVATED PARTIAL THRMPLAS TEJAS Routine 05/13/2019 Results for 4:08 AM CDT this procedure are in the results section. PROFILE / HEMOGRAM Routine 05/13/2019 Results for 4:08 AM CDT this procedure are in the results section. BASIC METABOLIC PANEL (NA, K, Routine 05/13/2019 Results for CL, CO2, GLUCOSE, BUN, 4:08 AM CDT this CREATININE, CA) procedure are in the results section. ACTIVATED PARTIAL THRMPLAS TEJAS Routine 05/12/2019 Results for 5:02 AM CDT this procedure are in the results section. PROFILE / HEMOGRAM Routine 05/12/2019 Results for 5:02 AM CDT this procedure are in the results section. BASIC METABOLIC PANEL (NA, K, Routine 05/12/2019 Results for CL, CO2, GLUCOSE, BUN, 5:02 AM CDT this CREATININE, CA) procedure are in the results section. PROFILE / HEMOGRAM Routine 05/11/2019 Results for 11:52 AM CDT this procedure are in the results section. ACTIVATED PARTIAL THRMPLAS TEJAS Routine 05/11/2019 Results for 4:07 AM CDT this procedure are in the results section. PROFILE / HEMOGRAM Routine 05/11/2019 Results for 4:07 AM CDT this procedure are in the results section. BASIC METABOLIC PANEL (NA, K, Routine 05/11/2019 Results for CL, CO2, GLUCOSE, BUN, 4:07 AM CDT this CREATININE, CA) procedure are in the results section. PROFILE / HEMOGRAM Routine 05/10/2019 Results for 11:02 PM CDT this procedure are in the results section. PROFILE / HEMOGRAM Routine 05/10/2019 Results for 12:31 PM CDT this procedure are in the results section. ACTIVATED PARTIAL THRMPLAS TEJAS Routine 05/10/2019 Results for 4:01 AM CDT this procedure are in the results section. PROFILE / HEMOGRAM Routine 05/10/2019 Results for 4:01 AM CDT this procedure are in the results section. BASIC METABOLIC PANEL (NA, K, Routine 05/10/2019 Results for CL, CO2, GLUCOSE, BUN, 4:01 AM CDT this CREATININE, CA) procedure are in the results section. PROFILE / HEMOGRAM [facility]I 05/09/2019 Results for 9:46 PM CDT this procedure are in the results section. IR EMBOLIZATION ARTERIAL OR Routine 05/09/2019 Melena Results for VENOUS HEMORRHAGE OR LYMPHATIC 7:57 PM CDT this EXTRAVASATION procedure are in the results section. TYPE AND SCREEN STAT 05/09/2019 Results for 4:49 PM CDT this procedure are in the results section. FIBRINOGEN Routine 05/09/2019 Melena Results for 4:49 PM CDT this procedure are in the results section. PROTHROMBIN TIME / INR STAT 05/09/2019 Melena Results for 4:49 PM CDT this procedure are in the results section. PREPARE PACKED RBC STAT 05/09/2019 Results for 4:30 PM CDT this procedure are in the results section. PROFILE / HEMOGRAM Routine 05/09/2019 Results for 1:30 PM CDT this procedure are in the results section. ECHO ROUTINE W/DOPPLER COLOR [facility]I 05/09/2019 SOB (shortness 11:52 AM CDT of breath) ACTIVATED PARTIAL THRMPLAS TEJAS Routine 05/09/2019 Results for 5:30 AM CDT this procedure are in the results section. PROFILE / HEMOGRAM Routine 05/09/2019 Results for 5:30 AM CDT this procedure are in the results section. BASIC METABOLIC PANEL (NA, K, Routine 05/09/2019 Results for CL, CO2, GLUCOSE, BUN, 5:30 AM CDT this CREATININE, CA) procedure are in the results section. PROFILE / HEMOGRAM STAT 05/08/2019 Results for 8:06 PM CDT this procedure are in the results section. HELICOBACTER PYLORI ANTIGEN, [facility] 05/08/2019 Results for FECAL BY EIA 6:39 PM CDT this procedure are in the results section. ACTIVATED PARTIAL THRMPLAS TEJAS [facility] 05/08/2019 Results for 3:52 AM CDT this procedure are in the results section. BASIC METABOLIC PANEL (NA, K, [facility] 05/08/2019 Results for CL, CO2, GLUCOSE, BUN, 3:52 AM CDT this CREATININE, CA) procedure are in the results section. POCT GLUCOSE (AUTOMATED) Routine 05/07/2019 Results for 5:20 PM CDT this procedure are in the results section. PROFILE / HEMOGRAM [facility] 05/07/2019 Results for 8:07 AM CDT this procedure are in the results section. FIBRINOGEN [facility] 05/07/2019 Results for 6:55 AM CDT this procedure are in the results section. ACTIVATED PARTIAL THRMPLAS TEJAS [facility] 05/07/2019 Results for 2:08 AM CDT this procedure are in the results section. PROFILE / HEMOGRAM Routine 05/07/2019 Results for 2:08 AM CDT this procedure are in the results section. BASIC METABOLIC PANEL (NA, K, [facility] 05/07/2019 Results for CL, CO2, GLUCOSE, BUN, 2:08 AM CDT this CREATININE, CA) procedure are in the results section. PREPARE CRYOPRECIPITATE Routine 05/06/2019 Results for 11:24 PM CDT this procedure are in the results section. ESOPHAGOGASTRODUODENOSCOPY Level 2 05/06/2019 Melena (within 6 9:17 PM CDT hours) EGD (ENDO) Routine 05/06/2019 8:33 PM CDT MRSA / MSSA SCREEN BY PCR, Routine 05/06/2019 Results for NARES 7:54 PM CDT this procedure are in the results section. CBC WITH DIFFERENTIAL Routine 05/06/2019 Results for 7:54 PM CDT this procedure are in the results section. FIBRINOGEN STAT 05/06/2019 Results for 7:54 PM CDT this procedure are in the results section. ACTIVATED PARTIAL THRMPLAS TEJAS STAT 05/06/2019 Results for 7:54 PM CDT this procedure are in the results section. PROTHROMBIN TIME / INR STAT 05/06/2019 Results for 7:54 PM CDT this procedure are in the results section. CBC WITH DIFF Routine 05/06/2019 Results for 7:54 PM CDT this procedure are in the results section. COMP. METABOLIC PANEL (45318) STAT 05/06/2019 Results for 7:54 PM CDT this procedure are in the results section. PREPARE PACKED RBC STAT 05/06/2019 Results for 5:50 PM CDT this procedure are in the results section. PREPARE PACKED RBC Routine 05/06/2019 Results for 3:24 PM CDT this procedure are in the results section. PROFILE / HEMOGRAM STAT 05/06/2019 Results for 2:57 PM CDT this procedure are in the results section. TYPE AND SCREEN [facility] 05/06/2019 Results for 1:44 PM CDT this procedure are in the results section. ACTIVATED PARTIAL THRMPLAS TEJAS Routine 05/06/2019 Results for 4:47 AM CDT this procedure are in the results section. BASIC METABOLIC PANEL (NA, K, Routine 05/06/2019 Results for CL, CO2, GLUCOSE, BUN, 4:47 AM CDT this CREATININE, CA) procedure are in the results section. PROFILE / HEMOGRAM Routine 05/06/2019 Results for 4:46 AM CDT this procedure are in the results section. BILATERAL VENOUS DUPLEX UPPER Routine 05/05/2019 EXTREMITY BY VASCULAR LAB 1:37 PM CDT AC PANEL 20 + LACTIC ACID Routine 05/05/2019 Results for 11:56 AM CDT this procedure are in the results section. POCT GLUCOSE (AUTOMATED) Routine 05/05/2019 Results for 10:29 AM CDT this procedure are in the results section. ACTIVATED PARTIAL THRMPLAS TEJAS Routine 05/05/2019 Results for 4:14 AM CDT this procedure are in the results section. PROFILE / HEMOGRAM Routine 05/05/2019 Results for 4:14 AM CDT this procedure are in the results section. BASIC METABOLIC PANEL (NA, K, Routine 05/05/2019 Results for CL, CO2, GLUCOSE, BUN, 4:14 AM CDT this CREATININE, CA) procedure are in the results section. ACTIVATED PARTIAL THRMPLAS TEJAS Routine 05/04/2019 Results for 3:52 AM CDT this procedure are in the results section. BASIC METABOLIC PANEL (NA, K, Routine 05/04/2019 Results for CL, CO2, GLUCOSE, BUN, 3:52 AM CDT this CREATININE, CA) procedure are in the results section. HEPATITIS B SURFACE ANTIBODY [facility] 05/03/2019 Results for 11:29 AM CDT this procedure are in the results section. HEPATITIS B SURFACE ANTIGEN Add-on 05/03/2019 Results for 7:42 AM CDT this procedure are in the results section. MAGNESIUM [facility] 05/03/2019 Results for 7:42 AM CDT this procedure are in the results section. PHOSPHORUS [facility] 05/03/2019 Results for 7:42 AM CDT this procedure are in the results section. ACTIVATED PARTIAL THRMPLAS TEJAS [facility] 05/03/2019 Results for 5:15 AM CDT this procedure are in the results section. BASIC METABOLIC PANEL (NA, K, [facility] 05/03/2019 Results for CL, CO2, GLUCOSE, BUN, 5:14 AM CDT this CREATININE, CA) procedure are in the results section. MAGNESIUM Add-on 05/03/2019 Results for 5:14 AM CDT this procedure are in the results section. PHOSPHORUS Add-on 05/03/2019 Results for 5:14 AM CDT this procedure are in the results section. ACTIVATED PARTIAL THRMPLAS TEJAS [facility] 05/02/2019 Results for 4:11 AM CDT this procedure are in the results section. BASIC METABOLIC PANEL (NA, K, [facility] 05/02/2019 Results for CL, CO2, GLUCOSE, BUN, 4:11 AM CDT this CREATININE, CA) procedure are in the results section. ACTIVATED PARTIAL THRMPLAS TEJAS [facility] 05/01/2019 Results for 3:17 AM CDT this procedure are in the results section. PROFILE / HEMOGRAM [facility] 05/01/2019 Results for 3:17 AM CDT this procedure are in the results section. BASIC METABOLIC PANEL (NA, K, [facility] 05/01/2019 Results for CL, CO2, GLUCOSE, BUN, 3:17 AM CDT this CREATININE, CA) procedure are in the results section. MAGNESIUM [facility] 05/01/2019 Results for 3:17 AM CDT this procedure are in the results section. PHOSPHORUS [facility] 05/01/2019 Results for 3:17 AM CDT this procedure are in the results section. EKG-12 LEAD Routine 05/01/2019 3:15 AM CDT EKG-12 LEAD Routine 05/01/2019 3:12 AM CDT PROFILE / HEMOGRAM [facility] 05/01/2019 Results for 12:36 AM CDT this procedure are in the results section. PROFILE / HEMOGRAM [facility] 04/30/2019 Results for 6:26 PM CDT this procedure are in the results section. PROFILE / HEMOGRAM [facility] 04/30/2019 Results for 2:28 PM CDT this procedure are in the results section. PROFILE / HEMOGRAM STAT 04/30/2019 Results for 8:49 AM CDT this procedure are in the results section. PREPARE PACKED RBC Routine 04/30/2019 Results for 4:57 AM CDT this procedure are in the results section. ACTIVATED PARTIAL THRMPLAS TEJAS [facility] 04/30/2019 Results for 3:45 AM CDT this procedure are in the results section. PROFILE / HEMOGRAM [facility] 04/30/2019 Results for 3:45 AM CDT this procedure are in the results section. PROFILE / HEMOGRAM [facility] 04/29/2019 Results for 5:14 PM CDT this procedure are in the results section. PROFILE / HEMOGRAM [facility] 04/29/2019 Results for 12:04 PM CDT this procedure are in the results section. XR CHEST 1 VW STAT 04/29/2019 Melena Results for 5:23 AM CDT this procedure are in the results section. PROFILE / HEMOGRAM [facility] 04/29/2019 Results for 5:07 AM CDT this procedure are in the results section. BASIC METABOLIC PANEL (NA, K, [facility]I 04/29/2019 Results for CL, CO2, GLUCOSE, BUN, 5:07 AM CDT this CREATININE, CA) procedure are in the results section. ESOPHAGOGASTRODUODENOSCOPY Level 2 04/28/2019 Melena (within 6 4:00 PM CDT hours) PROFILE / HEMOGRAM [facility] 04/28/2019 Results for 4:00 PM CDT this procedure are in the results section. BASIC METABOLIC PANEL (NA, K, STAT 04/28/2019 Results for CL, CO2, GLUCOSE, BUN, 4:00 PM CDT this CREATININE, CA) procedure are in the results section. MAGNESIUM Add-on 04/28/2019 Results for 4:00 PM CDT this procedure are in the results section. PHOSPHORUS Add-on 04/28/2019 Results for 4:00 PM CDT this procedure are in the results section. EGD (ENDO) Routine 04/28/2019 3:54 PM CDT BASIC METABOLIC PANEL (NA, K, [facility]I 04/28/2019 Results for CL, CO2, GLUCOSE, BUN, 2:51 PM CDT this CREATININE, CA) procedure are in the results section. MAGNESIUM [facility] 04/28/2019 Results for 2:51 PM CDT this procedure are in the results section. CT HEAD WO CONTRAST Routine 04/28/2019 Seizures Results for 2:09 PM CDT this procedure are in the results section. PREPARE PACKED RBC Routine 04/28/2019 Results for 12:36 PM CDT this procedure are in the results section. FIBRINOGEN STAT 04/28/2019 Results for 12:22 PM CDT this procedure are in the results section. ACTIVATED PARTIAL THRMPLAS TEJAS Add-on 04/28/2019 Results for 12:22 PM CDT this procedure are in the results section. PROTHROMBIN TIME / INR Routine 04/28/2019 Results for 12:22 PM CDT this procedure are in the results section. PROFILE / HEMOGRAM STAT 04/28/2019 Results for 12:22 PM CDT this procedure are in the results section. POCT GLUCOSE (AUTOMATED) Routine 04/28/2019 Results for 10:51 AM CDT this procedure are in the results section. TYPE AND SCREEN [facility]I 04/28/2019 Results for 3:10 AM CDT this procedure are in the results section. ACTIVATED PARTIAL THRMPLAS TEJAS Routine 04/28/2019 Results for 2:12 AM CDT this procedure are in the results section. PROFILE / HEMOGRAM Routine 04/28/2019 Results for 12:59 AM CDT this procedure are in the results section. BASIC METABOLIC PANEL (NA, K, Routine 04/28/2019 Results for CL, CO2, GLUCOSE, BUN, 12:59 AM CDT this CREATININE, CA) procedure are in the results section. ENDOSCOPY PROCEDURE Routine 04/28/2019 DOCUMENTATION 12:01 AM CDT ELECTROENCEPHALOGRAM [facility]I 04/28/2019 Seizures CBC WITH DIFFERENTIAL Routine 04/27/2019 Results for 6:19 AM CDT this procedure are in the results section. CBC WITH DIFF Routine 04/27/2019 Results for 6:19 AM CDT this procedure are in the results section. COMP. METABOLIC PANEL (15421) Routine 04/27/2019 Results for 6:19 AM CDT this procedure are in the results section. MAGNESIUM Routine 04/27/2019 Results for 6:19 AM CDT this procedure are in the results section. ACTIVATED PARTIAL THRMPLAS TEJAS Routine 04/27/2019 Results for 6:18 AM CDT this procedure are in the results section. US UPPER ARM RIGHT [facility]I 04/26/2019 Hematoma Results for 8:36 PM CDT this procedure are in the results section. COMP. METABOLIC PANEL (76053) Routine 04/26/2019 Results for 5:02 AM CDT this procedure are in the results section. MAGNESIUM Routine 04/26/2019 Results for 5:02 AM CDT this procedure are in the results section. CBC WITH DIFFERENTIAL Routine 04/26/2019 Results for 5:01 AM CDT this procedure are in the results section. ACTIVATED PARTIAL THRMPLAS TEJAS Routine 04/26/2019 Results for 5:01 AM CDT this procedure are in the results section. CBC WITH DIFF Routine 04/26/2019 Results for 5:01 AM CDT this procedure are in the results section. COMP. METABOLIC PANEL ([id number]) Routine 04/25/2019 Results for 5:35 AM CDT this procedure are in the results section. MAGNESIUM Routine 04/25/2019 Results for 5:35 AM CDT this procedure are in the results section. CBC WITH DIFFERENTIAL Routine 04/25/2019 Results for 5:34 AM CDT this procedure are in the results section. ACTIVATED PARTIAL THRMPLAS TEJAS Routine 04/25/2019 Results for 5:34 AM CDT this procedure are in the results section. CBC WITH DIFF Routine 04/25/2019 Results for 5:34 AM CDT this procedure are in the results section. PROFILE / HEMOGRAM Routine 04/24/2019 Results for 9:40 PM CDT this procedure are in the results section. TRANSFUSE PACKED RBC Routine 04/24/2019 4:07 PM CDT PREPARE PACKED RBC Routine 04/24/2019 Results for 12:59 PM CDT this procedure are in the results section. TYPE AND SCREEN [facility]I 04/24/2019 Results for 10:58 AM CDT this procedure are in the results section. EXTRA TUBE LT. GREEN Routine 04/24/2019 7:18 AM CDT CBC WITH DIFFERENTIAL Routine 04/24/2019 Results for 7:18 AM CDT this procedure are in the results section. ACTIVATED PARTIAL THRMPLAS TEJAS Routine 04/24/2019 Results for 7:18 AM CDT this procedure are in the results section. CBC WITH DIFF Routine 04/24/2019 Results for 7:18 AM CDT this procedure are in the results section. BASIC METABOLIC PANEL (NA, K, Add-on 04/24/2019 Results for CL, CO2, GLUCOSE, BUN, 7:18 AM CDT this CREATININE, CA) procedure are in the results section. XR KUB Routine 04/23/2019 Pain of upper Results for 9:28 PM CDT abdomen this procedure are in the results section. CBC WITH DIFFERENTIAL Routine 04/23/2019 Results for 4:42 AM CDT this procedure are in the results section. CBC WITH DIFF Routine 04/23/2019 Results for 4:42 AM CDT this procedure are in the results section. ACTIVATED PARTIAL THRMPLAS TEJAS [facility]I 04/23/2019 Results for 4:41 AM CDT this procedure are in the results section. BASIC METABOLIC PANEL (NA, K, [facility]I 04/23/2019 Results for CL, CO2, GLUCOSE, BUN, 4:41 AM CDT this CREATININE, CA) procedure are in the results section. MAGNESIUM [facility] 04/23/2019 Results for 4:41 AM CDT this procedure are in the results section. ALANINE AMINO TRANSFERASE(SGPT [facility]I 04/23/2019 Results for 4:41 AM CDT this procedure are in the results section. SGOT (ASPARTATE AMINO TRANSFER) [facility]I 04/23/2019 Results for 4:41 AM CDT this procedure are in the results section. CBC WITH DIFFERENTIAL Routine 04/22/2019 Results for 4:06 PM CDT this procedure are in the results section. CBC WITH DIFF Routine 04/22/2019 Results for 4:06 PM CDT this procedure are in the results section. ACTIVATED PARTIAL THRMPLAS TEJAS [facility]I 04/22/2019 Results for 12:16 PM CDT this procedure are in the results section. CT CHEST PULMONARY ANGIOGRAM STAT 04/22/2019 FIGUEROA (dyspnea on Results for 10:58 AM CDT exertion) this procedure are in the results section. ACTIVATED PARTIAL THRMPLAS TEJAS [facility]I 04/22/2019 Results for 6:12 AM CDT this procedure are in the results section. TROPONIN I [facility] 04/22/2019 Results for 6:12 AM CDT this procedure are in the results section. CBC WITH DIFFERENTIAL Routine 04/22/2019 Results for 12:21 AM CDT this procedure are in the results section. FIBRINOGEN Add-on 04/22/2019 Results for 12:21 AM CDT this procedure are in the results section. ACTIVATED PARTIAL THRMPLAS TEJAS [facility] 04/22/2019 Results for 12:21 AM CDT this procedure are in the results section. PROTHROMBIN TIME / INR Add-on 04/22/2019 Results for 12:21 AM CDT this procedure are in the results section. CBC WITH DIFF Routine 04/22/2019 Results for 12:21 AM CDT this procedure are in the results section. BASIC METABOLIC PANEL (NA, K, [facility]I 04/22/2019 Results for CL, CO2, GLUCOSE, BUN, 12:21 AM CDT this CREATININE, CA) procedure are in the results section. TROPONIN I [facility] 04/22/2019 Results for 12:21 AM CDT this procedure are in the results section. OSMOLALITY SERUM [facility] 04/22/2019 Results for 12:21 AM CDT this procedure are in the results section. MAGNESIUM [facility] 04/22/2019 Results for 12:21 AM CDT this procedure are in the results section. ALANINE AMINO TRANSFERASE(SGPT [facility] 04/22/2019 Results for 12:21 AM CDT this procedure are in the results section. SGOT (ASPARTATE AMINO TRANSFER) [facility]I 04/22/2019 Results for 12:21 AM CDT this procedure are in the results section. PREPARE PACKED RBC STAT 04/22/2019 Results for 12:15 AM CDT this procedure are in the results section. POCT GLUCOSE (AUTOMATED) Routine 04/21/2019 Results for 8:10 PM CDT this procedure are in the results section. HEMOGLOBIN [facility] 04/21/2019 Results for 3:51 PM CDT this procedure are in the results section. BASIC METABOLIC PANEL (NA, K, [facility]I 04/21/2019 Results for CL, CO2, GLUCOSE, BUN, 3:51 PM CDT this CREATININE, CA) procedure are in the results section. TROPONIN I Add-on 04/21/2019 Results for 3:51 PM CDT this procedure are in the results section. MRSA / MSSA SCREEN BY PCR, [facility] 04/21/2019 Results for NARES 3:13 PM CDT this procedure are in the results section. BLOOD CULTURE SCREEN [facility] 04/21/2019 Results for 3:04 PM CDT this procedure are in the results section. BLOOD CULTURE SCREEN [facility] 04/21/2019 Results for 3:04 PM CDT this procedure are in the results section. AC PANEL 20 + LACTIC ACID [facility] 04/21/2019 Results for 2:45 PM CDT this procedure are in the results section. ACTIVATED PARTIAL THRMPLAS TEJAS Routine 04/21/2019 Results for 12:00 PM CDT this procedure are in the results section. TROPONIN I [facility] 04/21/2019 Results for 12:00 PM CDT this procedure are in the results section. XR SHOULDER 2+ VW RIGHT Routine 04/21/2019 Fatigue, Results for 11:44 AM CDT unspecified this type procedure are in the results section. XR HUMERUS 2 VW RIGHT Routine 04/21/2019 Fatigue, Results for 11:44 AM CDT unspecified this type procedure are in the results section. XR ELBOW <3 VW RIGHT Routine 04/21/2019 Fatigue, Results for 11:44 AM CDT unspecified this type procedure are in the results section. PREPARE PACKED RBC Routine 04/21/2019 Results for 11:37 AM CDT this procedure are in the results section. PREPARE PACKED RBC Routine 04/21/2019 Results for 11:02 AM CDT this procedure are in the results section. EKG-12 LEAD Routine 04/21/2019 10:37 AM CDT AC PANEL 20 + LACTIC ACID Routine 04/21/2019 Results for 10:22 AM CDT this procedure are in the results section. XR CHEST 1 VW STAT 04/21/2019 FIGUEROA (dyspnea on Results for 10:13 AM CDT exertion) this procedure are in the results section. POCT GLUCOSE (AUTOMATED) Routine 04/21/2019 Results for 9:59 AM CDT this procedure are in the results section. CBC WITH DIFFERENTIAL Routine 04/21/2019 Results for 9:22 AM CDT this procedure are in the results section. ACTIVATED PARTIAL THRMPLAS TEJAS Routine 04/21/2019 Results for 9:22 AM CDT this procedure are in the results section. CBC WITH DIFF Routine 04/21/2019 Results for 9:22 AM CDT this procedure are in the results section. TYPE AND SCREEN [facility]I 04/21/2019 Results for 6:37 AM CDT this procedure are in the results section. POCT GLUCOSE (AUTOMATED) Routine 04/21/2019 Results for 5:54 AM CDT this procedure are in the results section. CBC WITH DIFFERENTIAL Routine 04/21/2019 Results for 3:56 AM CDT this procedure are in the results section. ACTIVATED PARTIAL THRMPLAS TEJAS Routine 04/21/2019 Results for 3:56 AM CDT this procedure are in the results section. CBC WITH DIFF Routine 04/21/2019 Results for 3:56 AM CDT this procedure are in the results section. BASIC METABOLIC PANEL (NA, K, Routine 04/21/2019 Results for CL, CO2, GLUCOSE, BUN, 3:56 AM CDT this CREATININE, CA) procedure are in the results section. MAGNESIUM Routine 04/21/2019 Results for 3:56 AM CDT this procedure are in the results section. ALANINE AMINO TRANSFERASE(SGPT Routine 04/21/2019 Results for 3:56 AM CDT this procedure are in the results section. SGOT (ASPARTATE AMINO TRANSFER) Routine 04/21/2019 Results for 3:56 AM CDT this procedure are in the results section. POCT GLUCOSE (AUTOMATED) Routine 04/20/2019 Results for 11:43 PM CDT this procedure are in the results section. POCT GLUCOSE (AUTOMATED) Routine 04/20/2019 Results for 5:20 PM CDT this procedure are in the results section. POCT GLUCOSE (AUTOMATED) Routine 04/20/2019 Results for 1:26 PM CDT this procedure are in the results section. POCT GLUCOSE (AUTOMATED) Routine 04/20/2019 Results for 12:26 PM CDT this procedure are in the results section. EXTRA TUBE RED Routine 04/20/2019 12:06 PM CDT EXTRA TUBE SST Routine 04/20/2019 12:06 PM CDT ACTIVATED PARTIAL THRMPLAS TEJAS Routine 04/20/2019 Results for 12:06 PM CDT this procedure are in the results section. PROFILE / HEMOGRAM Routine 04/20/2019 Results for 12:06 PM CDT this procedure are in the results section. IRON PANEL Add-on 04/20/2019 Results for 12:06 PM CDT this procedure are in the results section. ACTIVATED PARTIAL THRMPLAS TEJAS Routine 04/20/2019 Results for 12:04 PM CDT this procedure are in the results section. POCT GLUCOSE (AUTOMATED) Routine 04/20/2019 Results for 11:43 AM CDT this procedure are in the results section. POCT GLUCOSE (AUTOMATED) Routine 04/20/2019 Results for 5:47 AM CDT this procedure are in the results section. CBC WITH DIFFERENTIAL STAT 04/20/2019 Results for 2:50 AM CDT this procedure are in the results section. CBC WITH DIFF STAT 04/20/2019 Results for 2:50 AM CDT this procedure are in the results section. HIT - AB Routine 04/20/2019 Results for 2:49 AM CDT this procedure are in the results section. HIT - AB Routine 04/20/2019 Results for 2:49 AM CDT this procedure are in the results section. CARTER, UNFRACTIONATED HEPARIN Routine 04/20/2019 Results for 2:49 AM CDT this procedure are in the results section. MISCELLANEOUS SEND OUT TEST Routine 04/20/2019 Results for 2:49 AM CDT this procedure are in the results section. ACTIVATED PARTIAL THRMPLAS TEJAS STAT 04/20/2019 Results for 2:49 AM CDT this procedure are in the results section. PROTHROMBIN TIME / INR STAT 04/20/2019 Results for 2:49 AM CDT this procedure are in the results section. FERRITIN SERUM Add-on 04/20/2019 Results for 2:49 AM CDT this procedure are in the results section. BILIRUBIN TOTAL STAT 04/20/2019 Results for 2:49 AM CDT this procedure are in the results section. ALANINE AMINO TRANSFERASE(SGPT STAT 04/20/2019 Results for 2:49 AM CDT this procedure are in the results section. SGOT (ASPARTATE AMINO TRANSFER) STAT 04/20/2019 Results for 2:49 AM CDT this procedure are in the results section. POCT GLUCOSE (AUTOMATED) Routine 04/19/2019 Results for 11:44 PM CDT this procedure are in the results section. EKG-12 LEAD Routine 04/19/2019 10:29 PM CDT POCT GLUCOSE (AUTOMATED) Routine 04/19/2019 Results for 4:27 PM CDT this procedure are in the results section. HEMOGLOBIN Routine 04/19/2019 Results for 4:22 PM CDT this procedure are in the results section. TRANSFUSE PACKED RBC STAT 04/19/2019 11:32 AM CDT POCT GLUCOSE (AUTOMATED) Routine 04/19/2019 Results for 11:27 AM CDT this procedure are in the results section. POCT GLUCOSE (AUTOMATED) Routine 04/19/2019 Results for 7:16 AM CDT this procedure are in the results section. POCT GLUCOSE (AUTOMATED) Routine 04/19/2019 Results for 4:30 AM CDT this procedure are in the results section. CBC WITH DIFFERENTIAL Routine 04/19/2019 Results for 4:29 AM CDT this procedure are in the results section. CBC WITH DIFF Routine 04/19/2019 Results for 4:29 AM CDT this procedure are in the results section. ANTI-NUCLEAR ANTIBODY SCREEN Routine 04/19/2019 Results for 4:28 AM CDT this procedure are in the results section. FIBRINOGEN Routine 04/19/2019 Results for 4:28 AM CDT this procedure are in the results section. ACTIVATED PARTIAL THRMPLAS TEJAS Routine 04/19/2019 Results for 4:28 AM CDT this procedure are in the results section. D-DIMER Routine 04/19/2019 Results for 4:28 AM CDT this procedure are in the results section. PROTHROMBIN TIME / INR Routine 04/19/2019 Results for 4:28 AM CDT this procedure are in the results section. COMP. METABOLIC PANEL (39665) Routine 04/19/2019 Results for 4:28 AM CDT this procedure are in the results section. TRANSFUSE CRYOPRECIPITATE Routine 04/19/2019 1:55 AM CDT POCT GLUCOSE (AUTOMATED) Routine 04/19/2019 Results for 12:11 AM CDT this procedure are in the results section. TRANSFUSE CRYOPRECIPITATE Routine 04/18/2019 9:53 PM CDT PREPARE CRYOPRECIPITATE Routine 04/18/2019 Results for 9:44 PM CDT this procedure are in the results section. POCT GLUCOSE (AUTOMATED) Routine 04/18/2019 Results for 9:00 PM CDT this procedure are in the results section. ABORH CONFIRMATION Routine 04/18/2019 Results for 7:15 PM CDT this procedure are in the results section. TYPE AND SCREEN HALI 04/18/2019 Results for 7:15 PM CDT this procedure are in the results section. POCT GLUCOSE (AUTOMATED) Routine 04/18/2019 Results for 4:33 PM CDT this procedure are in the results section. EXTRA SST HOLD FOR ARUP STAT 04/18/2019 3:02 PM CDT HIT - AB STAT 04/18/2019 Results for 3:02 PM CDT this procedure are in the results section. HIT - AB STAT 04/18/2019 Results for 3:02 PM CDT this procedure are in the results section. CARTER, UNFRACTIONATED HEPARIN STAT 04/18/2019 Results for 3:02 PM CDT this procedure are in the results section. FIBRINOGEN Routine 04/18/2019 Results for 3:02 PM CDT this procedure are in the results section. ACTIVATED PARTIAL THRMPLAS TEJAS Routine 04/18/2019 Results for 3:02 PM CDT this procedure are in the results section. D-DIMER Routine 04/18/2019 Results for 3:02 PM CDT this procedure are in the results section. PROTHROMBIN TIME / INR Routine 04/18/2019 Results for 3:02 PM CDT this procedure are in the results section. EKG-12 LEAD Routine 04/18/2019 2:16 PM CDT LACTATE DEHYDROGENASE Routine 04/18/2019 Results for 12:49 PM CDT this procedure are in the results section. HAPTOGLOBIN, SERUM Routine 04/18/2019 Results for 12:48 PM CDT this procedure are in the results section. MAGNESIUM Add-on 04/18/2019 Results for 12:48 PM CDT this procedure are in the results section. EXTRA SST HOLD FOR ARUP Routine 04/18/2019 11:40 AM CDT HIT - AB Routine 04/18/2019 Results for 11:40 AM CDT this procedure are in the results section. POCT GLUCOSE (AUTOMATED) Routine 04/18/2019 Results for 11:19 AM CDT this procedure are in the results section. POCT GLUCOSE (AUTOMATED) Routine 04/18/2019 Results for 7:30 AM CDT this procedure are in the results section. CBC WITH DIFFERENTIAL Routine 04/18/2019 Results for 4:46 AM CDT this procedure are in the results section. MANUAL DIFF. FOR DIFF. CONSULT Routine 04/18/2019 4:46 AM CDT DIFF CONSULT INTERPRETATION Routine 04/18/2019 Results for 4:46 AM CDT this procedure are in the results section. PROCALCITONIN Routine 04/18/2019 Results for 4:46 AM CDT this procedure are in the results section. CBC WITH DIFF Routine 04/18/2019 Results for 4:46 AM CDT this procedure are in the results section. DIFF CONSULT BY PATHOLOGIST Routine 04/18/2019 Results for 4:46 AM CDT this procedure are in the results section. BASIC METABOLIC PANEL (NA, K, Routine 04/18/2019 Results for CL, CO2, GLUCOSE, BUN, 4:46 AM CDT this CREATININE, CA) procedure are in the results section. HEPATIC FUNCTION PANEL (41681) Routine 04/18/2019 Results for (ALB,T.PRO,BILI 4:46 AM CDT this T,BU/BC,ALT,AST,ALK PHOS) procedure are in the results section. C4 COMPLEMENT Routine 04/18/2019 Results for 4:46 AM CDT this procedure are in the results section. C3 COMPLEMENT Routine 04/18/2019 Results for 4:46 AM CDT this procedure are in the results section. COMPLEMENT CH50, TOTAL Routine 04/18/2019 Results for 4:46 AM CDT this procedure are in the results section. POCT GLUCOSE (AUTOMATED) Routine 04/17/2019 Results for 11:55 PM CDT this procedure are in the results section. POCT GLUCOSE (AUTOMATED) Routine 04/17/2019 Results for 7:39 PM CDT this procedure are in the results section. POCT GLUCOSE (AUTOMATED) Routine 04/17/2019 Results for 3:59 PM CDT this procedure are in the results section. OCCULT (GUAIAC) BLOOD Routine 04/17/2019 Results for 1:36 PM CDT this procedure are in the results section. POCT GLUCOSE (AUTOMATED) Routine 04/17/2019 Results for 11:38 AM CDT this procedure are in the results section. POCT GLUCOSE (AUTOMATED) Routine 04/17/2019 Results for 7:48 AM CDT this procedure are in the results section. CBC WITH DIFFERENTIAL Routine 04/17/2019 Results for 5:22 AM CDT this procedure are in the results section. CBC WITH DIFF Routine 04/17/2019 Results for 5:22 AM CDT this procedure are in the results section. BASIC METABOLIC PANEL (NA, K, Routine 04/17/2019 Results for CL, CO2, GLUCOSE, BUN, 5:22 AM CDT this CREATININE, CA) procedure are in the results section. POCT GLUCOSE (AUTOMATED) Routine 04/17/2019 Results for 5:04 AM CDT this procedure are in the results section. POCT GLUCOSE (AUTOMATED) Routine 04/17/2019 Results for 4:40 AM CDT this procedure are in the results section. POCT GLUCOSE (AUTOMATED) Routine 04/17/2019 Results for 12:19 AM CDT this procedure are in the results section. POCT GLUCOSE (AUTOMATED) Routine 04/16/2019 Results for 8:13 PM CDT this procedure are in the results section. POCT GLUCOSE (AUTOMATED) Routine 04/16/2019 Results for 4:19 PM CDT this procedure are in the results section. POCT GLUCOSE (AUTOMATED) Routine 04/16/2019 Results for 11:45 AM CDT this procedure are in the results section. POCT GLUCOSE (AUTOMATED) Routine 04/16/2019 Results for 10:03 AM CDT this procedure are in the results section. POCT GLUCOSE (AUTOMATED) Routine 04/16/2019 Results for 7:43 AM CDT this procedure are in the results section. POCT GLUCOSE (AUTOMATED) Routine 04/16/2019 Results for 6:23 AM CDT this procedure are in the results section. CBC WITH DIFFERENTIAL Routine 04/16/2019 Results for 4:34 AM CDT this procedure are in the results section. N-TERMINAL PRO-BNP Routine 04/16/2019 Results for 4:34 AM CDT this procedure are in the results section. CBC WITH DIFF Routine 04/16/2019 Results for 4:34 AM CDT this procedure are in the results section. COMP. METABOLIC PANEL ([id number]) Routine 04/16/2019 Results for 4:34 AM CDT this procedure are in the results section. MAGNESIUM Routine 04/16/2019 Results for 4:34 AM CDT this procedure are in the results section. URIC ACID Routine 04/16/2019 Results for 4:34 AM CDT this procedure are in the results section. PHOSPHORUS Routine 04/16/2019 Results for 4:34 AM CDT this procedure are in the results section. POCT GLUCOSE (AUTOMATED) Routine 04/16/2019 Results for 4:29 AM CDT this procedure are in the results section. POCT GLUCOSE (AUTOMATED) Routine 04/16/2019 Results for 2:05 AM CDT this procedure are in the results section. POCT GLUCOSE (AUTOMATED) Routine 04/16/2019 Results for 12:07 AM CDT this procedure are in the results section. POCT GLUCOSE (AUTOMATED) Routine 04/15/2019 Results for 10:10 PM CDT this procedure are in the results section. POCT GLUCOSE (AUTOMATED) Routine 04/15/2019 Results for 8:09 PM CDT this procedure are in the results section. POCT GLUCOSE (AUTOMATED) Routine 04/15/2019 Results for 5:58 PM CDT this procedure are in the results section. POCT GLUCOSE (AUTOMATED) Routine 04/15/2019 Results for 4:09 PM CDT this procedure are in the results section. XR ABDOMEN 1 VW STAT 04/15/2019 Fatigue, Results for 3:25 PM CDT unspecified this type procedure are Dysphagia, in the unspecified results type section. Uremia Chronic kidney disease, unspecified CKD stage XR ABDOMEN 1 VW HALI 04/15/2019 Uremia Results for 2:00 PM CDT this procedure are in the results section. XR ABDOMEN 1 VW STAT 04/15/2019 Uremia Results for 1:30 PM CDT this procedure are in the results section. POCT GLUCOSE (AUTOMATED) Routine 04/15/2019 Results for 11:51 AM CDT this procedure are in the results section. POCT GLUCOSE (AUTOMATED) Routine 04/15/2019 Results for 10:03 AM CDT this procedure are in the results section. COMP. METABOLIC PANEL ([id number]) STAT 04/15/2019 Results for 7:47 AM CDT this procedure are in the results section. POCT GLUCOSE (AUTOMATED) Routine 04/15/2019 Results for 7:46 AM CDT this procedure are in the results section. N-TERMINAL PRO-BNP Routine 04/15/2019 Results for 6:20 AM CDT this procedure are in the results section. MAGNESIUM Routine 04/15/2019 Results for 6:20 AM CDT this procedure are in the results section. URIC ACID Routine 04/15/2019 Results for 6:20 AM CDT this procedure are in the results section. PHOSPHORUS Routine 04/15/2019 Results for 6:20 AM CDT this procedure are in the results section. POCT GLUCOSE (AUTOMATED) Routine 04/15/2019 Results for 4:22 AM CDT this procedure are in the results section. CBC WITH DIFFERENTIAL Routine 04/15/2019 Results for 4:14 AM CDT this procedure are in the results section. CBC WITH DIFF Routine 04/15/2019 Results for 4:14 AM CDT this procedure are in the results section. POCT GLUCOSE (AUTOMATED) Routine 04/15/2019 Results for 12:10 AM CDT this procedure are in the results section. POCT GLUCOSE (AUTOMATED) Routine 04/14/2019 Results for 8:12 PM CDT this procedure are in the results section. POCT GLUCOSE (AUTOMATED) Routine 04/14/2019 Results for 3:46 PM CDT this procedure are in the results section. XR CHEST 1 VW STAT 04/14/2019 Fatigue, Results for 2:25 PM CDT unspecified this type procedure are in the results section. FL TIME OR (NON-REPORTABLE) Routine 04/14/2019 Chronic kidney Results for 1:16 PM CDT disease, this unspecified CKD procedure are stage in the results section. PERM CATH PLACEMENT Level 4 04/14/2019 CHRONIC KIDNEY (within 0-5 12:03 PM CDT DISEASE days) BASIC METABOLIC PANEL (NA, K, Routine 04/14/2019 Results for CL, CO2, GLUCOSE, BUN, 10:10 AM CDT this CREATININE, CA) procedure are in the results section. ECHO ROUTINE W/DOPPLER COLOR Routine 04/14/2019 Bradycardia 9:02 AM CDT EKG-12 LEAD Routine 04/14/2019 8:59 AM CDT POCT GLUCOSE (AUTOMATED) Routine 04/14/2019 Results for 8:09 AM CDT this procedure are in the results section. POCT GLUCOSE (AUTOMATED) Routine 04/14/2019 Results for 6:36 AM CDT this procedure are in the results section. POCT GLUCOSE (AUTOMATED) Routine 04/14/2019 Results for 5:06 AM CDT this procedure are in the results section. BLOOD CULTURE SCREEN STAT 04/14/2019 Results for 4:10 AM CDT this procedure are in the results section. AMMONIA, PLASMA Routine 04/14/2019 Results for 4:09 AM CDT this procedure are in the results section. POCT GLUCOSE (AUTOMATED) Routine 04/14/2019 Results for 2:09 AM CDT this procedure are in the results section. POCT GLUCOSE (AUTOMATED) Routine 04/13/2019 Results for 11:52 PM CDT this procedure are in the results section. POCT GLUCOSE (AUTOMATED) Routine 04/13/2019 Results for 9:10 PM CDT this procedure are in the results section. US RETROPERITONEAL COMPLETE STAT 04/13/2019 Uremia Results for 6:55 PM CDT this procedure are in the results section. POCT GLUCOSE (AUTOMATED) Routine 04/13/2019 Results for 4:49 PM CDT this procedure are in the results section. BLOOD CULTURE SCREEN STAT 04/13/2019 Results for 4:42 PM CDT this procedure are in the results section. PROCALCITONIN HALI Add-On 04/13/2019 Results for 4:36 PM CDT this procedure are in the results section. N-TERMINAL PRO-BNP Add-on 04/13/2019 Results for 4:36 PM CDT this procedure are in the results section. HEPATITIS B CORE ANTIBODY IGM Routine 04/13/2019 Results for 4:36 PM CDT this procedure are in the results section. HEPATITIS B SURFACE ANTIGEN Routine 04/13/2019 Results for 4:36 PM CDT this procedure are in the results section. HEPATITIS B SURFACE ANTIBODY Routine 04/13/2019 Results for 4:36 PM CDT this procedure are in the results section. FOLATE HALI Add-On 04/13/2019 Results for 4:36 PM CDT this procedure are in the results section. VITAMIN B12, LEVEL HALI Add-On 04/13/2019 Results for 4:36 PM CDT this procedure are in the results section. MAGNESIUM Add-on 04/13/2019 Results for 4:36 PM CDT this procedure are in the results section. POCT GLUCOSE (AUTOMATED) Routine 04/13/2019 Results for 3:50 PM CDT this procedure are in the results section. POCT GLUCOSE (AUTOMATED) Routine 04/13/2019 Results for 3:01 PM CDT this procedure are in the results section. URINE CULTURE STAT 04/13/2019 Results for 2:47 PM CDT this procedure are in the results section. POCT GLUCOSE (AUTOMATED) Routine 04/13/2019 Results for 1:54 PM CDT this procedure are in the results section. POCT GLUCOSE (AUTOMATED) Routine 04/13/2019 Results for 1:10 PM CDT this procedure are in the results section. POCT GLUCOSE (AUTOMATED) Routine 04/13/2019 Results for 12:29 PM CDT this procedure are in the results section. CT HEAD WO CONTRAST Routine 04/13/2019 Dysphagia, Results for 11:59 AM CDT unspecified this type procedure are in the results section. URINALYSIS STAT 04/13/2019 Fatigue, Results for 11:26 AM CDT unspecified this type procedure are in the results section. CBC WITH DIFFERENTIAL STAT 04/13/2019 Fatigue, Results for 10:46 AM CDT unspecified this type procedure are in the results section. FREE T3 STAT 04/13/2019 Fatigue, Results for 10:46 AM CDT unspecified this type procedure are in the results section. CBC WITH DIFF Routine 04/13/2019 Fatigue, Results for 10:46 AM CDT unspecified this type procedure are in the results section. COMP. METABOLIC PANEL (69773) STAT 04/13/2019 Fatigue, Results for 10:46 AM CDT unspecified this type procedure are in the results section. THYROID STIMULATING HORMONE STAT 04/13/2019 Fatigue, Results for 10:46 AM CDT unspecified this type procedure are in the results section. FREE T4 STAT 04/13/2019 Fatigue, Results for 10:46 AM CDT unspecified this type procedure are in the results section. TROPONIN I STAT 04/13/2019 Fatigue, Results for 10:46 AM CDT unspecified this type procedure are in the results section. POCT GLUCOSE (AUTOMATED) Routine 04/13/2019 Results for 10:37 AM CDT this procedure are in the results section. XR CHEST 1 VW Routine 04/13/2019 Fatigue, Results for 10:22 AM CDT unspecified this type procedure are in the results section. HOSPITAL ADMISSION Routine 04/13/2019 12:01 AM CDT HOSPITAL ADMISSION Routine 04/13/2019 12:01 AM CDT EMERGENCY DEPARTMENT DOCUMENTS Routine 04/13/2019 12:01 AM CDT EXTERNAL PROVIDER RECORDS Routine 04/13/2019 12:01 AM CDT EXTERNAL PROVIDER RECORDS Routine 04/13/2019 12:01 AM CDT documented in this encounter Results BASIC METABOLIC PANEL (NA, K, CL, CO2, GLUCOSE, BUN, CREATININE, CA) (2018 6:42 AM CDT) NA 138 135 - 145 [facility] mmol/L SERVICES K 3.8 3.5 - 5.0 [facility] mmol/L SERVICES CL 110 (H) 98 - 108 mmol/L [facility] CO2 TOTAL 30 23 - 31 mmol/L [facility] AGAP <1 (L) 2 - 16 [facility] BUN 46 (H) 7 - 23 mg/dL [facility] GLUCOSE 90 70 - 110 mg/dL [facility] CREATININE 2.95 (H) 0.50 - 1.04 [facility] mg/dL SERVICES CALCIUM 7.3 (L) 8.6 - 10.6 [facility] mg/dL SERVICES eGFR Calculation 15.4 mL/min/1.73m2 [facility] (Non- SERVICES Jordanian) eGFR Calculation 18.6 mL/min/1.73m2 [facility] () SERVICES Specimen Blood - CENTRAL VENOUS LINE Narrative Performed At Association of Glomerular Filtration Rate (GFR) and Staging [facility] SERVICES of Kidney Disease* + + + + | GFR (mL/min/1.73 m2)| With Kidney Damage|Without Kidney Damage + + + + |>90|Stage one| Normal + + + + |60-89|Stage two| Decreased GFR + + + + |30-59|Stage three| Stage three + + + + |15-29|Stage four | Stage four + + + + |<15 (or dialysis)|Stage five | Stage five + + + + *Each stage assumes the associated GFR level has been in effect for at least three months.Stages 1 to 5, with or without kidney disease, indicate chronic kidney disease. Notes: Determination of stages one and two (with eGFR >59mL/min/1.73 m2) requires estimation of kidney damage for at least three months as defined by structural or functional abnormalities of the kidney, manifested by either: Pathological abnormalities or Markers of kidney damage (including abnormalities in the composition of the blood or urine or abnormalities in imaging tests). Performing Organization Address City/State/Zipcode Phone Number [facility] CLIA: [id number], [address] [place] [address] [facility] PROFILE / HEMOGRAM (05/15/2019 6:42 AM CDT) WBC 7.72 4.30 - 11.10 [facility] 10*3/L SERVICES RBC 2.70 (L) 3.93 - 5.25 [facility] 10*6/L SERVICES HGB 8.2 (L) 11.6 - 15.0 g/dL [facility] HCT 26.3 (L) 35.7 - 45.2 % [facility] SERVICES MCH 30.4 25.9 - 32.8 pg [facility] MCV 97.4 (H) 80.6 - 95.5 fL [facility] SERVICES MCHC 31.2 (L) 31.6 - 35.1 g/dL [facility] SERVICES PLT 116 (L) 166 - 358 10*3/L [facility] SERVICES MPV 11.2 9.5 - 12.9 fL [facility] RDW-CV 17.1 (H) 12.0 - 15.5 % [facility] RDW-SD 59.7 (H) 39.0 - 49.9 fL [facility] NRBC x10^3 <0.01 10*3/L [facility] NRBC/100 WBC 0.0 0.0 - 10.0 /100 [facility] WBCs SERVICES IPF % 1.3 - 7.7 % [facility] SERVICES Specimen Blood - CENTRAL VENOUS LINE Performing Organization Address City/[facility]/Zipcode Phone Number [facility] CLIA: [id number], [address] [place] [phone] [facility] aPTT (05/15/2019 6:41 AM CDT) APTT Patient 28 26 - 36 Seconds [facility] Specimen Blood - CENTRAL VENOUS LINE Performing Organization Address City/[facility]/Zipcode Phone Number [facility] CLIA: [id number], [address] [place] [phone] [facility] BASIC METABOLIC PANEL (NA, K, CL, CO2, GLUCOSE, BUN, CREATININE, CA) (2018 6:28 AM CDT) NA 135 135 - 145 [facility] mmol/L SERVICES K 3.9 3.5 - 5.0 [facility] mmol/L SERVICES CL 109 (H) 98 - 108 mmol/L [facility] SERVICES CO2 TOTAL 29 23 - 31 mmol/L [facility] SERVICES AGAP <1 (L) 2 - 16 [facility] BUN 46 (H) 7 - 23 mg/dL [facility] GLUCOSE 85 70 - 110 mg/dL [facility] CREATININE 2.99 (H) 0.50 - 1.04 [facility] mg/dL SERVICES CALCIUM 7.0 (L) 8.6 - 10.6 [facility] mg/dL SERVICES eGFR Calculation 15.2 mL/min/1.73m2 [facility] (Non- SERVICES [place]ian) eGFR Calculation 18.4 mL/min/1.73m2 [facility] () SERVICES Specimen Blood - ARM, LEFT Narrative Performed At [facility] Glomerular Filtration Rate (GFR) and Staging [facility] SERVICES of Kidney Disease* + + + + | GFR (mL/min/1.73 m2)| With Kidney Damage|Without Kidney Damage + + + + |>90|Stage one| Normal + + + + |60-89|Stage two| Decreased GFR + + + + |30-59|Stage three| Stage three + + + + |15-29|Stage four | Stage four + + + + |<15 (or dialysis)|Stage five | Stage five + + + + *Each stage assumes the associated GFR level has been in effect for at least three months.Stages 1 to 5, with or without kidney disease, indicate chronic kidney disease. Notes: Determination of stages one and two (with eGFR >59mL/min/1.73 m2) requires estimation of kidney damage for at least three months as defined by structural or functional abnormalities of the kidney, manifested by either: Pathological abnormalities or Markers of kidney damage (including abnormalities in the composition of the blood or urine or abnormalities in imaging tests). Performing Organization Address City/State/Zipcode Phone Number [facility] CLIA: [id number], [address] [place] [phone] [facility] aPTT (05/14/2019 6:28 AM CDT) APTT Patient 26 26 - 36 Seconds [facility] Specimen Blood - ARM, LEFT Performing Organization Address [facility]/Zipcode Phone Number [facility] CLIA: [id number], [address] [place] [phone] [facility] PROFILE / HEMOGRAM (05/14/2019 6:28 AM CDT) WBC 8.43 4.30 - 11.10 [facility] 10*3/L SERVICES RBC 2.46 (L) 3.93 - 5.25 [facility] 10*6/L SERVICES HGB 7.4 (L) 11.6 - 15.0 [facility] g/dL SERVICES HCT 24.5 (L) 35.7 - 45.2 % [facility] SERVICES MCH 30.1 25.9 - 32.8 pg [facility] SERVICES MCV 99.6 (H) 80.6 - 95.5 fL [facility] SERVICES MCHC 30.2 (L) 31.6 - 35.1 [facility] g/dL SERVICES PLT 93 (L) 166 - 358 [facility] 10*3/L SERVICES MPV 11.1 9.5 - 12.9 fL [facility] SERVICES RDW-CV 17.4 (H) 12.0 - 15.5 % [facility] SERVICES RDW-SD 62.9 (H) 39.0 - 49.9 fL [facility] SERVICES NRBC x10^3 <0.01 10*3/L [facility] SERVICES NRBC/100 WBC 0.0 0.0 - 10.0 [facility] /100 WBCs SERVICES IPF % 3.9Comment: Platelet 1.3 - 7.7 % [facility] count measured by SERVICES fluorescence method. Specimen Blood - ARM, LEFT Performing Organization Address City/State/Zipcode Phone Number [facility] CLIA: [id number], [address] [place] [address] [phone] [facility] BASIC METABOLIC PANEL (NA, K, CL, CO2, GLUCOSE, BUN, CREATININE, CA) (2018 4:08 AM CDT) NA 136 135 - 145 [facility] mmol/L SERVICES K 3.9 3.5 - 5.0 [facility] mmol/L SERVICES CL 108 98 - 108 mmol/L [facility] SERVICES CO2 TOTAL 25 23 - 31 mmol/L [facility] SERVICES AGAP 3 2 - 16 [facility] SERVICES BUN 46 (H) 7 - 23 mg/dL [facility] SERVICES GLUCOSE 64 (L) 70 - 110 mg/dL [facility] SERVICES CREATININE 2.84 (H) 0.50 - 1.04 [facility] mg/dL SERVICES CALCIUM 7.4 (L) 8.6 - 10.6 [facility] mg/dL SERVICES eGFR Calculation 16.1 mL/min/1.73m2 [facility] (Non- SERVICES [place]ian) eGFR Calculation 19.5 mL/min/1.73m2 [facility] () SERVICES Specimen Blood - CENTRAL VENOUS LINE Narrative Performed At [facility] of Glomerular Filtration Rate (GFR) and Staging [facility] of Kidney Disease* + + + + | GFR (mL/min/1.73 m2)| With Kidney Damage|Without Kidney Damage + + + + |>90|Stage one| Normal + + + + |60-89|Stage two| Decreased GFR + + + + |30-59|Stage three| Stage three + + + + |15-29|Stage four | Stage four + + + + |<15 (or dialysis)|Stage five | Stage five + + + + *Each stage assumes the associated GFR level has been in effect for at least three months.Stages 1 to 5, with or without kidney disease, indicate chronic kidney disease. Notes: Determination of stages one and two (with eGFR >59mL/min/1.73 m2) requires estimation of kidney damage for at least three months as defined by structural or functional abnormalities of the kidney, manifested by either: Pathological abnormalities or Markers of kidney damage (including abnormalities in the composition of the blood or urine or abnormalities in imaging tests). Performing Organization Address City/State/Zipcode Phone Number [facility] CLIA: [id number], [address] [place] [address] [phone] [facility] aPTT (05/13/2019 4:08 AM CDT) APTT Patient 26 26 - 36 Seconds [facility] Specimen Blood - CENTRAL VENOUS LINE Performing Organization Address City/State/Zipcode Phone Number [facility] CLIA: [id number], [address] [place] [address] [phone] [facility] PROFILE / HEMOGRAM (05/13/2019 4:08 AM CDT) WBC 12.05 (H) 4.30 - 11.10 [facility] 10*3/L SERVICES RBC 2.79 (L) 3.93 - 5.25 [facility] 10*6/L SERVICES HGB 8.2 (L) 11.6 - 15.0 g/dL [facility] HCT 26.7 (L) 35.7 - 45.2 % [facility] MCH 29.4 25.9 - 32.8 pg [facility] MCV 95.7 (H) 80.6 - 95.5 fL [facility] MCHC 30.7 (L) 31.6 - 35.1 g/dL [facility] PLT 101 (L) 166 - 358 10*3/L [facility] MPV 11.1 9.5 - 12.9 fL [facility] RDW-CV 17.2 (H) 12.0 - 15.5 % [facility] RDW-SD 59.4 (H) 39.0 - 49.9 fL [facility] NRBC x10^3 <0.01 10*3/L [facility] NRBC/100 WBC 0.0 0.0 - 10.0 /100 [facility] WBCs SERVICES IPF % 1.3 - 7.7 % [facility] Specimen Blood - CENTRAL VENOUS LINE Performing Organization Address City/State/Zipcode Phone Number [facility] CLIA: [id number], [address] [place], [place] [phone] [facility] BASIC METABOLIC PANEL (NA, K, CL, CO2, GLUCOSE, BUN, CREATININE, CA) (2018 5:02 AM CDT) NA 136 135 - 145 [facility] mmol/L SERVICES K 3.9 3.5 - 5.0 [facility] mmol/L SERVICES CL 107 98 - 108 mmol/L [facility] CO2 TOTAL 26 23 - 31 mmol/L [facility] AGAP 3 2 - 16 [facility] BUN 46 (H) 7 - 23 mg/dL [facility] GLUCOSE 56 (L) 70 - 110 mg/dL [facility] CREATININE 2.85 (H) 0.50 - 1.04 [facility] mg/dL SERVICES CALCIUM 7.4 (L) 8.6 - 10.6 [facility] mg/dL SERVICES eGFR Calculation 16.0 mL/min/1.73m2 [facility] (Non- SERVICES Jordanian) eGFR Calculation 19.4 mL/min/1.73m2 [facility] () SERVICES Specimen Blood - LINE, VENOUS Narrative Performed At Association of Glomerular Filtration Rate (GFR) and Staging [facility] of Kidney Disease* + + + + | GFR (mL/min/1.73 m2)| With Kidney Damage|Without Kidney Damage + + + + |>90|Stage one| Normal + + + + |60-89|Stage two| Decreased GFR + + + + |30-59|Stage three| Stage three + + + + |15-29|Stage four | Stage four + + + + |<15 (or dialysis)|Stage five | Stage five + + + + *Each stage assumes the associated GFR level has been in effect for at least three months.Stages 1 to 5, with or without kidney disease, indicate chronic kidney disease. Notes: Determination of stages one and two (with eGFR >59mL/min/1.73 m2) requires estimation of kidney damage for at least three months as defined by structural or functional abnormalities of the kidney, manifested by either: Pathological abnormalities or Markers of kidney damage (including abnormalities in the composition of the blood or urine or abnormalities in imaging tests). Performing Organization Address City/State/Zipcode Phone Number [facility] CLIA: [id number], [address] [place] [phone] [facility] aPTT (05/12/2019 5:02 AM CDT) APTT Patient 24 (L) 26 - 36 Seconds [facility] Specimen Blood - LINE, VENOUS Performing Organization Address City/[facility]/Zipcode Phone Number [facility] CLIA: [id number], [address] [place] [address] [phone] [facility] PROFILE / HEMOGRAM (05/12/2019 5:02 AM CDT) WBC 10.50 4.30 - 11.10 [facility] 10*3/L SERVICES RBC 2.88 (L) 3.93 - 5.25 [facility] 10*6/L SERVICES HGB 9.2 (L) 11.6 - 15.0 [facility] g/dL SERVICES HCT 27.8 (L) 35.7 - 45.2 % [facility] MCH 31.9 25.9 - 32.8 pg [facility] MCV 96.5 (H) 80.6 - 95.5 fL [facility] MCHC 33.1 31.6 - 35.1 [facility] g/dL SERVICES PLT 97 (L) 166 - 358 [facility] 10*3/L SERVICES MPV 10.9 9.5 - 12.9 fL [facility] RDW-CV 17.4 (H) 12.0 - 15.5 % [facility] RDW-SD 59.2 (H) 39.0 - 49.9 fL [facility] NRBC x10^3 <0.01 10*3/L [facility] NRBC/100 WBC 0.0 0.0 - 10.0 [facility] /100 WBCs SERVICES IPF % 3.9Comment: Platelet 1.3 - 7.7 % [facility] count measured by SERVICES fluorescence method. Specimen Blood - LINE, VENOUS Performing Organization Address [facility]/Zipcode Phone Number [facility] CLIA: [id number], [address] [place] [phone] [facility] PROFILE / HEMOGRAM (05/11/2019 11:52 AM CDT) WBC 11.42 (H) 4.30 - 11.10 [facility] 10*3/L SERVICES RBC 2.96 (L) 3.93 - 5.25 [facility] 10*6/L SERVICES HGB 9.0 (L) 11.6 - 15.0 [facility] g/dL SERVICES HCT 28.3 (L) 35.7 - 45.2 % [facility] MCH 30.4 25.9 - 32.8 pg [facility] MCV 95.6 (H) 80.6 - 95.5 fL [facility] MCHC 31.8 31.6 - 35.1 [facility] g/dL SERVICES PLT 97 (L) 166 - 358 [facility] 10*3/L SERVICES MPV 11.1 9.5 - 12.9 fL [facility] RDW-CV 17.4 (H) 12.0 - 15.5 % [facility] RDW-SD 57.6 (H) 39.0 - 49.9 fL [facility] NRBC x10^3 <0.01 10*3/L [facility] NRBC/100 WBC 0.0 0.0 - 10.0 [facility] /100 WBCs SERVICES IPF % 3.3Comment: Platelet 1.3 - 7.7 % [facility] count measured by SERVICES fluorescence method. Specimen Blood - CENTRAL VENOUS LINE Performing Organization Address City/[facility]/Zipcode Phone Number [facility] CLIA: [id number], [address] [place] [address] [phone] [facility] BASIC METABOLIC PANEL (NA, K, CL, CO2, GLUCOSE, BUN, CREATININE, CA) (2018 4:07 AM CDT) NA 135 135 - 145 [facility] mmol/L SERVICES K 3.9 3.5 - 5.0 [facility] mmol/L SERVICES CL 107 98 - 108 mmol/L [facility] CO2 TOTAL 29 23 - 31 mmol/L [facility] AGAP <1 (L) 2 - 16 [facility] BUN 46 (H) 7 - 23 mg/dL [facility] GLUCOSE 62 (L) 70 - 110 mg/dL [facility] CREATININE 2.75 (H) 0.50 - 1.04 [facility] mg/dL SERVICES CALCIUM 7.4 (L) 8.6 - 10.6 [facility] mg/dL SERVICES eGFR Calculation 16.7 mL/min/1.73m2 [facility] (Non- SERVICES [place]ian) eGFR Calculation 20.2 mL/min/1.73m2 [facility] () SERVICES Specimen Blood - LINE, VENOUS Narrative Performed At Association of Glomerular Filtration Rate (GFR) and Staging [facility] of Kidney Disease* + + + + | GFR (mL/min/1.73 m2)| With Kidney Damage|Without Kidney Damage + + + + |>90|Stage one| Normal + + + + |60-89|Stage two| Decreased GFR + + + + |30-59|Stage three| Stage three + + + + |15-29|Stage four | Stage four + + + + |<15 (or dialysis)|Stage five | Stage five + + + + *Each stage assumes the associated GFR level has been in effect for at least three months.Stages 1 to 5, with or without kidney disease, indicate chronic kidney disease. Notes: Determination of stages one and two (with eGFR >59mL/min/1.73 m2) requires estimation of kidney damage for at least three months as defined by structural or functional abnormalities of the kidney, manifested by either: Pathological abnormalities or Markers of kidney damage (including abnormalities in the composition of the blood or urine or abnormalities in imaging tests). Performing Organization Address City/[facility]/Zipcode Phone Number [facility] CLIA: [id number], [address] [place] [phone] [facility] aPTT (05/11/2019 4:07 AM CDT) APTT Patient 25 (L) 26 - 36 Seconds [facility] Specimen Blood - LINE, VENOUS Performing Organization Address City/[facility]/Zipcode Phone Number [facility] CLIA: [id number], [address] [place] [address] [phone] [facility] PROFILE / HEMOGRAM (05/11/2019 4:07 AM CDT) WBC 10.87 4.30 - 11.10 [facility] 10*3/L SERVICES RBC 2.82 (L) 3.93 - 5.25 [facility] 10*6/L SERVICES HGB 8.8 (L) 11.6 - 15.0 g/dL [facility] HCT 27.0 (L) 35.7 - 45.2 % [facility] MCH 31.2 25.9 - 32.8 pg [facility] MCV 95.7 (H) 80.6 - 95.5 fL [facility] MCHC 32.6 31.6 - 35.1 g/dL [facility] PLT 102 (L) 166 - 358 10*3/L [facility] MPV 11.1 9.5 - 12.9 fL [facility] RDW-CV 17.5 (H) 12.0 - 15.5 % [facility] RDW-SD 59.4 (H) 39.0 - 49.9 fL [facility] NRBC x10^3 <0.01 10*3/L [facility] NRBC/100 WBC 0.0 0.0 - 10.0 /100 [facility] WBCs SERVICES IPF % 1.3 - 7.7 % [facility] Specimen Blood - LINE, VENOUS Performing Organization Address City/State/Zipcode Phone Number [facility] CLIA: [id number], [address] [place] [phone] [facility] PROFILE / HEMOGRAM (05/10/2019 11:02 PM CDT) WBC 11.20 (H) 4.30 - 11.10 [facility] 10*3/L SERVICES RBC 2.95 (L) 3.93 - 5.25 [facility] 10*6/L SERVICES HGB 8.9 (L) 11.6 - 15.0 [facility] g/dL SERVICES HCT 28.0 (L) 35.7 - 45.2 % [facility] MCH 30.2 25.9 - 32.8 pg [facility] MCV 94.9 80.6 - 95.5 fL [facility] MCHC 31.8 31.6 - 35.1 [facility] g/dL SERVICES PLT 93 (L) 166 - 358 [facility] 10*3/L SERVICES MPV 10.9 9.5 - 12.9 fL [facility] RDW-CV 17.3 (H) 12.0 - 15.5 % [facility] RDW-SD 55.8 (H) 39.0 - 49.9 fL [facility] NRBC x10^3 0.02 10*3/L [facility] NRBC/100 WBC 0.2 0.0 - 10.0 [facility] /100 WBCs SERVICES IPF % 3.3Comment: Platelet 1.3 - 7.7 % [facility] count measured by SERVICES fluorescence method. Specimen Blood - LINE, VENOUS Performing Organization Address City/State/Zipcode Phone Number [facility] CLIA: [id number], [address] [place] [address] [facility] PROFILE / HEMOGRAM (05/10/2019 12:31 PM CDT) WBC 11.28 (H) 4.30 - 11.10 [facility] 10*3/L SERVICES RBC 2.97 (L) 3.93 - 5.25 [facility] 10*6/L SERVICES HGB 9.0 (L) 11.6 - 15.0 g/dL [facility] HCT 27.9 (L) 35.7 - 45.2 % [facility] MCH 30.3 25.9 - 32.8 pg [facility] MCV 93.9 80.6 - 95.5 fL [facility] MCHC 32.3 31.6 - 35.1 g/dL [facility] PLT 105 (L) 166 - 358 10*3/L [facility] MPV 11.0 9.5 - 12.9 fL [facility] RDW-CV 17.3 (H) 12.0 - 15.5 % [facility] RDW-SD 55.0 (H) 39.0 - 49.9 fL [facility] NRBC x10^3 <0.01 10*3/L [facility] NRBC/100 WBC 0.0 0.0 - 10.0 /100 [facility] WBCs SERVICES IPF % 1.3 - 7.7 % [facility] Specimen Blood - CENTRAL VENOUS LINE Performing Organization Address [facility]/Zipcode Phone Number [facility] CLIA: [id number], [address] [place] [address] [phone] [facility] PROFILE / HEMOGRAM (05/10/2019 4:01 AM CDT) WBC 10.13 4.30 - 11.10 [facility] 10*3/L SERVICES RBC 2.99 (L) 3.93 - 5.25 [facility] 10*6/L SERVICES HGB 9.1 (L) 11.6 - 15.0 [facility] g/dL SERVICES HCT 28.0 (L) 35.7 - 45.2 % [facility] SERVICES MCH 30.4 25.9 - 32.8 pg [facility] MCV 93.6 80.6 - 95.5 fL [facility] MCHC 32.5 31.6 - 35.1 [facility] g/dL SERVICES PLT 101 (L) 166 - 358 [facility] 10*3/L SERVICES MPV 11.0 9.5 - 12.9 fL [facility] RDW-CV 17.3 (H) 12.0 - 15.5 % [facility] RDW-SD 54.2 (H) 39.0 - 49.9 fL [facility] NRBC x10^3 <0.01 10*3/L [facility] NRBC/100 WBC 0.0 0.0 - 10.0 [facility] /100 WBCs SERVICES IPF % 4.3Comment: Platelet 1.3 - 7.7 % [facility] count measured by SERVICES fluorescence method. Specimen Blood - ARM, RIGHT Performing Organization Address City/[facility]/Zipcode Phone Number [facility] CLIA: [id number], [address] [place] [address] [phone] [facility] BASIC METABOLIC PANEL (NA, K, CL, CO2, GLUCOSE, BUN, CREATININE, CA) (2018 4:01 AM CDT) NA 132 (L) 135 - 145 [facility] mmol/L SERVICES K 4.0 3.5 - 5.0 [facility] mmol/L SERVICES CL 103 98 - 108 mmol/L [facility] CO2 TOTAL 26 23 - 31 mmol/L [facility] AGAP 3 2 - 16 [facility] BUN 47 (H) 7 - 23 mg/dL [facility] GLUCOSE 66 (L) 70 - 110 mg/dL [facility] CREATININE 2.65 (H) 0.50 - 1.04 [facility] mg/dL SERVICES CALCIUM 7.5 (L) 8.6 - 10.6 [facility] mg/dL SERVICES eGFR Calculation 17.4 mL/min/1.73m2 [facility] (Non- SERVICES [place]ian) eGFR Calculation 21.1 mL/min/1.73m2 [facility] () SERVICES Specimen Blood - ARM, RIGHT Narrative Performed At [facility] Glomerular Filtration Rate (GFR) and Staging [facility] of Kidney Disease* + + + + | GFR (mL/min/1.73 m2)| With Kidney Damage|Without Kidney Damage + + + + |>90|Stage one| Normal + + + + |60-89|Stage two| Decreased GFR + + + + |30-59|Stage three| Stage three + + + + |15-29|Stage four | Stage four + + + + |<15 (or dialysis)|Stage five | Stage five + + + + *Each stage assumes the associated GFR level has been in effect for at least three months.Stages 1 to 5, with or without kidney disease, indicate chronic kidney disease. Notes: Determination of stages one and two (with eGFR >59mL/min/1.73 m2) requires estimation of kidney damage for at least three months as defined by structural or functional abnormalities of the kidney, manifested by either: Pathological abnormalities or Markers of kidney damage (including abnormalities in the composition of the blood or urine or abnormalities in imaging tests). Performing Organization Address [facility] Phone Number [facility] CLIA: [id number], [address] [place] [phone] [facility] aPTT (05/10/2019 4:01 AM CDT) APTT Patient 24 (L) 26 - 36 Seconds [facility] Specimen Blood - ARM, RIGHT Performing Organization Address [facility] Phone Number [facility] CLIA: [id number], [address] [place] [address] [facility] PROFILE / HEMOGRAM (05/09/2019 9:46 PM CDT) WBC 10.21 4.30 - 11.10 [facility] 10*3/L SERVICES RBC 2.98 (L) 3.93 - 5.25 [facility] 10*6/L SERVICES HGB 9.2 (L) 11.6 - 15.0 [facility] g/dL SERVICES HCT 27.6 (L) 35.7 - 45.2 % [facility] MCH 30.9 25.9 - 32.8 pg [facility] MCV 92.6 80.6 - 95.5 fL [facility] MCHC 33.3 31.6 - 35.1 [facility] g/dL SERVICES PLT 99 (L) 166 - 358 [facility] 10*3/L SERVICES MPV 11.1 9.5 - 12.9 fL [facility] RDW-CV 17.0 (H) 12.0 - 15.5 % [facility] RDW-SD 51.8 (H) 39.0 - 49.9 fL [facility] NRBC x10^3 <0.01 10*3/L [facility] NRBC/100 WBC 0.0 0.0 - 10.0 [facility] /100 WBCs SERVICES IPF % 3.6Comment: Platelet 1.3 - 7.7 % [facility] count measured by SERVICES fluorescence method. Specimen Blood - ARM, LEFT Performing Organization Address City/State/Zipcode Phone Number [facility] CLIA: [id number], [address] [place] [address] [phone] [facility] IR EMBOLIZATION ARTERIAL OR VENOUS HEMORRHAGE OR LYMPHATIC EXTRAVASATION (2018 7:57 PM CDT) Specimen Impressions Performed At Impression: PACS/VR/DOSE Successful mesenteric angiogram with embolization of the gastroduodenal artery. Adonis Velasquez MD., have reviewed this study and agree with the above report. Narrative Performed At * * * * * * * * ORIGINAL REPORT * * * * * * * * PACS/VR/DOSE MESENTERIC ARTERIOGRAM WITH EMBOLIZATION OF THE GASTRODUODENAL ARTERY HISTORY: 78-year-old female with duodenal ulcers, dropping hemoglobin. PROCEDURE SUMMARY: 1. Selective catheterization and diagnostic angiograms of the celiac artery, superior mesenteric artery, and gastroduodenal artery 2. Embolization of the gastroduodenal artery 3. US-guidance for vascular access 4. Angioseal for groin closure CONTRAST: 75 cc omnipaque Radiation: 478.3 mGy MEDICATIONS: IV moderate sedation was provided with Versed and fentanyl with continuous monitoring of vitals by dedicated nurse. Patient also became slightly tachycardic at the start of the procedure. She was given fluids throughout the procedure and her vitals remained stable. Please see [facility] for sedation time . Attending presence : The attending was present in the room throughout the study. TECHNIQUE AND FINDINGS: Signed informed consent was obtained from the patient's family after risks and benefits of the procedure were explained to him; The patient was prepped and draped in usual sterile manner. Porum protocol timeout was performed verifying correct patient, correct site, and correct procedure. Images were archived to PACS. Ultrasound guidance was used for vascular access. Real time ultrasound was used for evaluation of potential access sites and documentation of selected access vessel patency (exact access vessel is documented elsewhere in this report). Concurrent real-time ultrasound visualization was used in vascular needle entry. A permanent recorded ultrasound image was obtained. The right common femoral artery was accessed with 21 gauge needle under ultrasound guidance. Over a micropuncture wire, a micropuncture sheath was placed. This was exchanged for a VMTurbo wire for a 6 [place]an vascular sheath. A 5F Jamil catheter was advanced in to the abdominal aorta and used to select the celiac artery. Diagnostic arteriogram of the celiac artery was obtained to identify the common hepatic and gastroduodenal arteries. Left gastric, hepatic, and splenic arteries are unremarkable. There was mild hypervascular blush at the second portion of the duodenum which was supplied by the gastroduodenal artery. As an anatomic variant there is a replaced left hepatic artery. Diagnostic angiography was also performed of the superior mesenteric artery which did not demonstrate any significant abnormalities. Incidentally noted is an accessory right hepatic artery. No evidence of active bleed, pseudoaneurysm, or hypervascular blush. A 2.4 [place]an microcatheter with microwire was then used to select the gastroduodenal artery through the celiac axis. Diagnostic angiogram of the gastroduodenal artery demonstrated scattered irregular areas of narrowing within the gastroepiploic artery, likely representing vasospasm due to recent bleed from the known duodenal ulcer. Mild hypervascular blush is also again seen in the second portion of the duodenum. After confirmation of appropriate positioning of the catheter, embolization of the gastroduodenal artery was performed to stasis utilizing multiple 3 mm and 4 mm coils. Post embolization angiogram of the gastroduodenal artery demonstrated complete occlusion with no antegrade flow. The catheters and wires were then removed. After groin injection to assess the suitability of closure devise, an Angio-Seal closure device was used and pressure was held until hemostasis. Patient tolerated procedure well without any immediate complications. Procedure Note [facility], Radiant Results Inft User - 05/10/2019 3:35 PM CDT * * * * * * * * ORIGINAL REPORT * * * * * * * * MESENTERIC ARTERIOGRAM WITH EMBOLIZATION OF THE GASTRODUODENAL ARTERY HISTORY: 78-year-old female with duodenal ulcers, dropping hemoglobin. PROCEDURE SUMMARY: 1. Selective catheterization and diagnostic angiograms of the celiac artery, superior mesenteric artery, and gastroduodenal artery 2. Embolization of the gastroduodenal artery 3. US-guidance for vascular access 4. Angioseal for groin closure CONTRAST: 75 cc omnipaque Radiation: 478.3 mGy MEDICATIONS: IV moderate sedation was provided with Versed and fentanyl with continuous monitoring of vitals by dedicated nurse. Patient also became slightly tachycardic at the start of the procedure. She was given fluids throughout the procedure and her vitals remained stable. Please see [facility] for sedation time . Attending presence : The attending was present in the room throughout the study. TECHNIQUE AND FINDINGS: Signed informed consent was obtained from the patient's family after risks and benefits of the procedure were explained to him; The patient was prepped and draped in usual sterile manner. Porum protocol timeout was performed verifying correct patient, correct site, and correct procedure. Images were archived to PACS. Ultrasound guidance was used for vascular access. Real time ultrasound was used for evaluation of potential access sites and documentation of selected access vessel patency (exact access vessel is documented elsewhere in this report). Concurrent real-time ultrasound visualization was used in vascular needle entry. A permanent recorded ultrasound image was obtained. The right common femoral artery was accessed with 21 gauge needle under ultrasound guidance. Over a micropuncture wire, a micropuncture sheath was placed. This was exchanged for a Tinteoson wire for a 6 [place]an vascular sheath. A 5F Jamil catheter was advanced in to the abdominal aorta and used to select the celiac artery. Diagnostic arteriogram of the celiac artery was obtained to identify the common hepatic and gastroduodenal arteries. Left gastric, hepatic, and splenic arteries are unremarkable. There was mild hypervascular blush at the second portion of the duodenum which was supplied by the gastroduodenal artery. As an anatomic variant there is a replaced left hepatic artery. Diagnostic angiography was also performed of the superior mesenteric artery which did not demonstrate any significant abnormalities. Incidentally noted is an accessory right hepatic artery. No evidence of active bleed, pseudoaneurysm, or hypervascular blush. A 2.4 [place]an microcatheter with microwire was then used to select the gastroduodenal artery through the celiac axis. Diagnostic angiogram of the gastroduodenal artery demonstrated scattered irregular areas of narrowing within the gastroepiploic artery, likely representing vasospasm due to recent bleed from the known duodenal ulcer. Mild hypervascular blush is also again seen in the second portion of the duodenum. After confirmation of appropriate positioning of the catheter, embolization of the gastroduodenal artery was performed to stasis utilizing multiple 3 mm and 4 mm coils. Post embolization angiogram of the gastroduodenal artery demonstrated complete occlusion with no antegrade flow. The catheters and wires were then removed. After groin injection to assess the suitability of closure devise, an Angio-Seal closure device was used and pressure was held until hemostasis. Patient tolerated procedure well without any immediate complications. IMPRESSION Impression: Successful mesenteric angiogram with embolization of the gastroduodenal artery. I, Chaparro Hernandez MD., have reviewed this study and agree with the above report. Performing Organization Address City/State/Zipcode Phone Number PACS/VR/DOSE PROTHROMBIN TIME / INR (05/09/2019 4:49 PM CDT) PROTIME PATIENT 11.6 10.1 - 12.6 [facility] Seconds SERVICES INR 1.1Comment: Normal [facility] INR <1.1; Warfarin SERVICES Therapeutic range 2.0 to 3.0 or 2.5 to 3.5, depending upon the indications. Specimen Blood - VENOUS Performing Organization Address City/State/Zipcode Phone Number [facility] CLIA: [id number], [address] [place], [place] [phone] [address] FIBRINOGEN (05/09/2019 4:49 PM CDT) [facility] Fibrinogen 166 (L) 167 - 453 mg/dL [facility] SERVICES Specimen Blood - VENOUS Performing Organization Address City/State/Zipcode Phone Number [facility] CLIA: [id number], [address] [place] [phone] [facility] Type and Screen - ONCE STAT (05/09/2019 4:49 PM CDT) [facility] ABO & RH O POSITIVE LAB Comment: Performed at [facility] Services - [place] [address] Toll Free: [phone] CLIA No. [id number] IAT Negative LAB Comment: Performed at [facility] Services - [place] [address] Toll Free: [phone] CLIA No. [id number] Specimen Blood - VENOUS Performing Organization Address [facility] Phone Number [facility] Prepare Packed RBC (in units), 1 Units (05/09/2019 4:30 PM CDT) [facility] Cross Match Result Compatible LAB ISBT Blood Type Code 5100 LAB Unit Blood Type O Pos LAB Unit Number [id number] LAB Blood Expiration Date & LAB Time Status Information Issued LAB Product Identification Red Blood Cells LAB Product Code [id number] LAB Comment: Performed at [facility] Services - [place] [address] Toll Free: [phone] CLIA No. [id number] Specimen Performing Organization Address City/[facility]/Zipcode Phone Number BLD LAB PROFILE / HEMOGRAM (05/09/2019 1:30 PM CDT) [facility] WBC 9.35 4.30 - 11.10 [facility] 10*3/L SERVICES RBC 2.33 (L) 3.93 - 5.25 [facility] 10*6/L SERVICES HGB 6.9 (L) 11.6 - 15.0 g/dL [facility] SERVICES HCT 22.3 (L) 35.7 - 45.2 % [facility] SERVICES MCH 29.6 25.9 - 32.8 pg [facility] SERVICES MCV 95.7 (H) 80.6 - 95.5 fL [facility] SERVICES MCHC 30.9 (L) 31.6 - 35.1 g/dL [facility] SERVICES PLT 100 (L) 166 - 358 10*3/L [facility] SERVICES MPV 10.7 9.5 - 12.9 fL [facility] SERVICES RDW-CV 18.6 (H) 12.0 - 15.5 % [facility] SERVICES RDW-SD 57.9 (H) 39.0 - 49.9 fL [facility] SERVICES NRBC x10^3 0.02 10*3/L [facility] SERVICES NRBC/100 WBC 0.2 0.0 - 10.0 /100 [facility] WBCs SERVICES IPF % 1.3 - 7.7 % [facility] SERVICES Specimen Blood - VENOUS Performing Organization Address City/State/Zipcode Phone Number [facility] CLIA: [id number], [address] [place] [address] [facility] BASIC METABOLIC PANEL (NA, K, CL, CO2, GLUCOSE, BUN, CREATININE, CA) (2018 5:30 AM CDT) NA 134 (L) 135 - 145 [facility] mmol/L SERVICES K 4.0 3.5 - 5.0 [facility] mmol/L SERVICES CL 104 98 - 108 mmol/L [facility] SERVICES CO2 TOTAL 26 23 - 31 mmol/L [facility] SERVICES AGAP 4 2 - 16 [facility] SERVICES BUN 49 (H) 7 - 23 mg/dL [facility] SERVICES GLUCOSE 75 70 - 110 mg/dL [facility] SERVICES CREATININE 2.59 (H) 0.50 - 1.04 [facility] mg/dL SERVICES CALCIUM 7.7 (L) 8.6 - 10.6 [facility] mg/dL SERVICES eGFR Calculation 17.9 mL/min/1.73m2 [facility] (Non- SERVICES Jordanian) eGFR Calculation 21.7 mL/min/1.73m2 [facility] () SERVICES Specimen Blood - CENTRAL VENOUS LINE Narrative Performed At Association of Glomerular Filtration Rate (GFR) and Staging [facility] SERVICES of Kidney Disease* + + + + | GFR (mL/min/1.73 m2)| With Kidney Damage|Without Kidney Damage + + + + |>90|Stage one| Normal + + + + |60-89|Stage two| Decreased GFR + + + + |30-59|Stage three| Stage three + + + + |15-29|Stage four | Stage four + + + + |<15 (or dialysis)|Stage five | Stage five + + + + *Each stage assumes the associated GFR level has been in effect for at least three months.Stages 1 to 5, with or without kidney disease, indicate chronic kidney disease. Notes: Determination of stages one and two (with eGFR >59mL/min/1.73 m2) requires estimation of kidney damage for at least three months as defined by structural or functional abnormalities of the kidney, manifested by either: Pathological abnormalities or Markers of kidney damage (including abnormalities in the composition of the blood or urine or abnormalities in imaging tests). Performing Organization Address City/[facility]/Zipcode Phone Number [facility] CLIA: [id number], [address] [place] [address] [phone] [facility] aPTT (05/09/2019 5:30 AM CDT) APTT Patient 27 26 - 36 Seconds [facility] SERVICES Specimen Blood - CENTRAL VENOUS LINE Performing Organization Address City/State/Zipcode Phone Number [facility] CLIA: [id number], [address] [place] [address] [phone] [facility] PROFILE / HEMOGRAM (05/09/2019 5:30 AM CDT) WBC 11.21 (H) 4.30 - 11.10 [facility] 10*3/L SERVICES RBC 2.70 (L) 3.93 - 5.25 [facility] 10*6/L SERVICES HGB 8.0 (L) 11.6 - 15.0 g/dL [facility] SERVICES HCT 25.2 (L) 35.7 - 45.2 % [facility] SERVICES MCH 29.6 25.9 - 32.8 pg [facility] SERVICES MCV 93.3 80.6 - 95.5 fL [facility] SERVICES MCHC 31.7 31.6 - 35.1 g/dL [facility] SERVICES PLT 115 (L) 166 - 358 10*3/L [facility] SERVICES MPV 11.3 9.5 - 12.9 fL [facility] SERVICES RDW-CV 18.6 (H) 12.0 - 15.5 % [facility] SERVICES RDW-SD 57.2 (H) 39.0 - 49.9 fL [facility] SERVICES NRBC x10^3 0.02 10*3/L [facility] SERVICES NRBC/100 WBC 0.2 0.0 - 10.0 /100 [facility] WBCs SERVICES IPF % 1.3 - 7.7 % [facility] SERVICES Specimen Blood - CENTRAL VENOUS LINE Performing Organization Address City/[facility]/Zipcode Phone Number [facility] CLIA: [id number], [address] [place] [phone] [facility] PROFILE / HEMOGRAM (05/08/2019 8:06 PM CDT) WBC 12.64 (H) 4.30 - 11.10 [facility] 10*3/L SERVICES RBC 2.92 (L) 3.93 - 5.25 [facility] 10*6/L SERVICES HGB 8.6 (L) 11.6 - 15.0 g/dL [facility] SERVICES HCT 27.2 (L) 35.7 - 45.2 % [facility] SERVICES MCH 29.5 25.9 - 32.8 pg [facility] SERVICES MCV 93.2 80.6 - 95.5 fL [facility] SERVICES MCHC 31.6 31.6 - 35.1 g/dL [facility] SERVICES PLT 112 (L) 166 - 358 10*3/L [facility] SERVICES MPV 10.5 9.5 - 12.9 fL [facility] SERVICES RDW-CV 18.2 (H) 12.0 - 15.5 % [facility] SERVICES RDW-SD 56.6 (H) 39.0 - 49.9 fL [facility] SERVICES NRBC x10^3 0.03 10*3/L [facility] SERVICES NRBC/100 WBC 0.2 0.0 - 10.0 /100 [facility] WBCs SERVICES IPF % 1.3 - 7.7 % [facility] SERVICES Specimen Blood - CENTRAL VENOUS LINE Performing Organization Address City/[facility] Phone Number [facility] CLIA: [id number], [address] [place] [address] [phone] [facility] HELICOBACTER PYLORI ANTIGEN, FECAL BY EIA (05/08/2019 6:39 PM CDT) H. PYLO Ag Negative Negative [facility] Comment: Performed by [employer], [address] [facility],[place] [id number] [email or web address], Александр Hayden MD, Lab. Director Specimen Stool - ANAL Performing Organization Address City/State/Zipcode Phone Number [facility] [address] [facility] [place] [phone] BASIC METABOLIC PANEL (NA, K, CL, CO2, GLUCOSE, BUN, CREATININE, CA) (2018 3:52 AM CDT) NA 133 (L) 135 - 145 [facility] mmol/L SERVICES K 4.0 3.5 - 5.0 [facility] mmol/L SERVICES CL 103 98 - 108 mmol/L [facility] SERVICES CO2 TOTAL 27 23 - 31 mmol/L [facility] SERVICES AGAP 3 2 - 16 [facility] SERVICES BUN 46 (H) 7 - 23 mg/dL [facility] SERVICES GLUCOSE 76 70 - 110 mg/dL [facility] SERVICES CREATININE 2.39 (H) 0.50 - 1.04 [facility] mg/dL SERVICES CALCIUM 7.6 (L) 8.6 - 10.6 [facility] mg/dL SERVICES eGFR Calculation 19.6 mL/min/1.73m2 [facility] (Non- SERVICES Jordanian) eGFR Calculation 23.8 mL/min/1.73m2 [facility] () SERVICES Specimen Blood - VENOUS Narrative Performed At [facility] Glomerular Filtration Rate (GFR) and Staging [facility] SERVICES of Kidney Disease* + + + + | GFR (mL/min/1.73 m2)| With Kidney Damage|Without Kidney Damage + + + + |>90|Stage one| Normal + + + + |60-89|Stage two| Decreased GFR + + + + |30-59|Stage three| Stage three + + + + |15-29|Stage four | Stage four + + + + |<15 (or dialysis)|Stage five | Stage five + + + + *Each stage assumes the associated GFR level has been in effect for at least three months.Stages 1 to 5, with or without kidney disease, indicate chronic kidney disease. Notes: Determination of stages one and two (with eGFR >59mL/min/1.73 m2) requires estimation of kidney damage for at least three months as defined by structural or functional abnormalities of the kidney, manifested by either: Pathological abnormalities or Markers of kidney damage (including abnormalities in the composition of the blood or urine or abnormalities in imaging tests). Performing Organization Address City/State/Zipcode Phone Number [facility] CLIA: [id number], [address] [place] [phone] [facility] aPTT (05/08/2019 3:52 AM CDT) APTT Patient 29 26 - 36 Seconds [facility] SERVICES Specimen Blood - VENOUS Performing Organization Address [facility] Phone Number [facility] CLIA: [id number], [address] [place] [phone] [facility] POCT GLUCOSE (AUTOMATED) (05/07/2019 5:20 PM CDT) Pathologist [facility] POCT GLU 80 70 - 110 mg/dL [facility] Specimen Blood Performing Organization Address [facility] Phone Number [facility] CLIA: [id number], [address] [place] [phone] [facility] PROFILE / HEMOGRAM (05/07/2019 8:07 AM CDT) WBC 16.92 (H) 4.30 - 11.10 [facility] 10*3/L SERVICES RBC 2.93 (L) 3.93 - 5.25 [facility] 10*6/L SERVICES HGB 8.7 (L) 11.6 - 15.0 g/dL [facility] SERVICES HCT 26.4 (L) 35.7 - 45.2 % [facility] SERVICES MCH 29.7 25.9 - 32.8 pg [facility] SERVICES MCV 90.1 80.6 - 95.5 fL [facility] SERVICES MCHC 33.0 31.6 - 35.1 g/dL [facility] SERVICES PLT 107 (L) 166 - 358 10*3/L [facility] SERVICES MPV 11.6 9.5 - 12.9 fL [facility] SERVICES RDW-CV 17.6 (H) 12.0 - 15.5 % [facility] SERVICES RDW-SD 52.3 (H) 39.0 - 49.9 fL [facility] SERVICES NRBC x10^3 0.44 10*3/L [facility] SERVICES NRBC/100 WBC 2.6 0.0 - 10.0 /100 [facility] WBCs SERVICES IPF % 1.3 - 7.7 % [facility] SERVICES Specimen Blood - CENTRAL VENOUS LINE Performing Organization Address City/[facility]/Zipcode Phone Number [facility] CLIA: [id number], [address] [place], [place] [address] [phone] [facility] FIBRINOGEN (05/07/2019 6:55 AM CDT) Fibrinogen 161 (L) 167 - 453 mg/dL [facility] SERVICES Specimen Blood - VENOUS Performing Organization Address [facility] Phone Number [facility] CLIA: [id number], [address] [place] [address] [phone] [facility] BASIC METABOLIC PANEL (NA, K, CL, CO2, GLUCOSE, BUN, CREATININE, CA) (2018 2:08 AM CDT) NA 132 (L) 135 - 145 [facility] mmol/L SERVICES K 4.3 3.5 - 5.0 [facility] mmol/L SERVICES CL 102 98 - 108 mmol/L [facility] SERVICES CO2 TOTAL 29 23 - 31 mmol/L [facility] SERVICES AGAP 1 (L) 2 - 16 [facility] SERVICES BUN 41 (H) 7 - 23 mg/dL [facility] SERVICES GLUCOSE 85 70 - 110 mg/dL [facility] SERVICES CREATININE 2.09 (H) 0.50 - 1.04 [facility] mg/dL SERVICES CALCIUM 7.8 (L) 8.6 - 10.6 [facility] mg/dL SERVICES eGFR Calculation 22.9 mL/min/1.73m2 [facility] (Non- SERVICES Jordanian) eGFR Calculation 27.8 mL/min/1.73m2 [facility] () SERVICES Specimen Blood - CENTRAL VENOUS LINE Narrative Performed At [facility] Glomerular Filtration Rate (GFR) and Staging [facility] SERVICES of Kidney Disease* + + + + | GFR (mL/min/1.73 m2)| With Kidney Damage|Without Kidney Damage + + + + |>90|Stage one| Normal + + + + |60-89|Stage two| Decreased GFR + + + + |30-59|Stage three| Stage three + + + + |15-29|Stage four | Stage four + + + + |<15 (or dialysis)|Stage five | Stage five + + + + *Each stage assumes the associated GFR level has been in effect for at least three months.Stages 1 to 5, with or without kidney disease, indicate chronic kidney disease. Notes: Determination of stages one and two (with eGFR >59mL/min/1.73 m2) requires estimation of kidney damage for at least three months as defined by structural or functional abnormalities of the kidney, manifested by either: Pathological abnormalities or Markers of kidney damage (including abnormalities in the composition of the blood or urine or abnormalities in imaging tests). Performing Organization Address City/State/Zipcode Phone Number [facility] CLIA: [id number], [address] [place] [phone] [facility] aPTT (05/07/2019 2:08 AM CDT) APTT Patient 28 26 - 36 Seconds [facility] SERVICES Specimen Blood - CENTRAL VENOUS LINE Performing Organization Address City/[facility]/Zipcode Phone Number [facility] CLIA: [id number], [address] [place] [phone] [facility] PROFILE / HEMOGRAM (05/07/2019 2:08 AM CDT) WBC 18.05 (H) 4.30 - 11.10 [facility] 10*3/L SERVICES RBC 3.18 (L) 3.93 - 5.25 [facility] 10*6/L SERVICES HGB 9.4 (L) 11.6 - 15.0 g/dL [facility] SERVICES HCT 29.0 (L) 35.7 - 45.2 % [facility] SERVICES MCH 29.6 25.9 - 32.8 pg [facility] SERVICES MCV 91.2 80.6 - 95.5 fL [facility] SERVICES MCHC 32.4 31.6 - 35.1 g/dL [facility] SERVICES PLT 104 (L) 166 - 358 10*3/L [facility] SERVICES MPV 11.6 9.5 - 12.9 fL [facility] SERVICES RDW-CV 17.2 (H) 12.0 - 15.5 % [facility] SERVICES RDW-SD 50.7 (H) 39.0 - 49.9 fL [facility] SERVICES NRBC x10^3 0.51 10*3/L [facility] SERVICES NRBC/100 WBC 2.8 0.0 - 10.0 /100 [facility] WBCs SERVICES IPF % 1.3 - 7.7 % [facility] SERVICES Specimen Blood - CENTRAL VENOUS LINE Performing Organization Address City/State/Zipcode Phone Number [facility] CLIA: [id number], [address] [place] [address] [phone] [facility] Prepare Cryoprecipitate (in units): 1 Units~Indication: 1) Fibrinogen < 100 mg/dL with bleeding or potential for bleeding associated with invasive procedure (05/06/2019 11:24 PM CDT) Pathologist [facility] Unit Blood Type O Pos LAB ISBT Blood Type Code 5100 LAB Unit Number [id number] LAB Blood Expiration Date LAB & Time Status Information Issued LAB Product Identification Cryoprecipitate LAB Product Code [id number] LAB Comment: Performed at [facility] Services - GAL Blood Bank [address] [place] [address] Toll Free: [phone] CLIA No. [id number] Specimen Performing Organization Address City/State/Zipcode Phone Number [facility] CBC WITH DIFFERENTIAL (05/06/2019 7:54 PM CDT) WBC 16.60 (H) 4.30 - 11.10 [facility] 10*3/L SERVICES RBC 3.19 (L) 3.93 - 5.25 [facility] 10*6/L SERVICES HGB 9.8 (L) 11.6 - 15.0 [facility] g/dL SERVICES HCT 29.2 (L) 35.7 - 45.2 [facility] % SERVICES MCV 91.5 80.6 - 95.5 [facility] fL SERVICES MCH 30.7 25.9 - 32.8 [facility] pg SERVICES MCHC 33.6 31.6 - 35.1 [facility] g/dL SERVICES RDW-SD 50.8 (H) 39.0 - 49.9 [facility] fL SERVICES RDW-CV 16.7 (H) 12.0 - 15.5 [facility] % SERVICES PLT 98 (L) 166 - 358 [facility] 10*3/L SERVICES MPV 11.8 9.5 - 12.9 [facility] fL SERVICES IPF % 5.9Comment: 1.3 - 7.7 % [facility] Platelet count SERVICES measured by fluorescence method. NRBC/100 WBC 3.1 0.0 - 10.0 [facility] /100 WBCs SERVICES NRBC x10^3 0.51 10*3/L [facility] SERVICES GRAN MAT (NEUT) % 68.0 % [facility] SERVICES IMM GRAN % 3.10 % [facility] SERVICES LYMPH % 16.3 % [facility] SERVICES MONO % 12.3 % [facility] SERVICES EOS % 0.2 % [facility] SERVICES BASO % 0.1 % [facility] SERVICES GRAN MAT x10^3(ANC) 11.27 (H) 1.88 - 7.09 [facility] 10*3/uL SERVICES IMM GRAN x10^3 0.52 (H) 0.00 - 0.06 [facility] 10*3/uL SERVICES LYMPH x10^3 2.70 1.32 - 3.29 [facility] 10*3/uL SERVICES MONO x10^3 2.05 (H) 0.33 - 0.92 [facility] 10*3/uL SERVICES EOS x10^3 0.04 0.03 - 0.39 [facility] 10*3/uL SERVICES BASO x10^3 <0.03 0.01 - 0.07 [facility] 10*3/uL SERVICES POLYCHROMASIA 2+ 2+ [facility] SERVICES Specimen Blood - VENOUS Performing Organization Address City/[facility] Phone Number [facility] CLIA: [id number], [address] [place] [address] [phone] [facility] MRSA / MSSA Screen by PCR, Nares (05/06/2019 7:54 PM CDT) MRSA Screen by PCR, Negative Negative [facility] Nares SERVICES MSSA Screen by PCR, Negative Negative [facility] Nares SERVICES MRSA/MSSA Positive? No No [facility] SERVICES Specimen Swab - NARES, BOTH SIDES Performing Organization Address [facility]/Zipcode Phone Number [facility] CLIA: [id number], [address] [place] [address] [phone] [facility] Fibrinogen Level (05/06/2019 7:54 PM CDT) Fibrinogen 97 (LL) 167 - 453 mg/dL [facility] SERVICES Specimen Blood - VENOUS Performing Organization Address City/State/Zipcode Phone Number [facility] CLIA: [id number], [address] [place] [phone] [facility] Prothrombin Time / INR (05/06/2019 7:54 PM CDT) PROTIME PATIENT 12.4 10.1 - 12.6 [facility] Seconds SERVICES INR 1.1Comment: Normal [facility] INR <1.1; Warfarin SERVICES Therapeutic range 2.0 to 3.0 or 2.5 to 3.5, depending upon the indications. Specimen Blood - VENOUS Performing Organization Address City/[facility]/Zipcode Phone Number [facility] CLIA: [id number], [address] [place], [place] [phone] [facility] aPTT (05/06/2019 7:54 PM CDT) APTT Patient 25 (L) 26 - 36 Seconds [facility] Specimen Blood - VENOUS Performing Organization Address City/[facility] Phone Number [facility] CLIA: [id number], [address] [place] [phone] [facility] Comprehensive Metabolic Panel (05/06/2019 7:54 PM CDT) NA 132 (L) 135 - 145 [facility] mmol/L SERVICES K 4.3 3.5 - 5.0 [facility] mmol/L SERVICES CL 102 98 - 108 mmol/L [facility] CO2 TOTAL 27 23 - 31 mmol/L [facility] AGAP 3 2 - 16 [facility] BUN 36 (H) 7 - 23 mg/dL [facility] GLUCOSE 85 70 - 110 mg/dL [facility] CREATININE 1.94 (H) 0.50 - 1.04 [facility] mg/dL SERVICES TOTAL BILI 2.0 (H) 0.1 - 1.1 mg/dL [facility] CALCIUM 7.8 (L) 8.6 - 10.6 [facility] mg/dL SERVICES T PROTEIN 4.0 (L) 6.3 - 8.2 g/dL [facility] ALBUMIN 1.8 (L) 3.5 - 5.0 g/dL [facility] ALK PHOS 41 34 - 122 U/L [facility] ALT(SGPT) 35 9 - 51 U/L [facility] AST(SGOT) 35 13 - 40 U/L [facility] eGFR Calculation 25.0 mL/min/1.73m2 [facility] (Non- SERVICES Jordanian) eGFR Calculation 30.3 mL/min/1.73m2 [facility] () SERVICES Specimen Blood - VENOUS Narrative [place] [facility] [place] [facility] Glomerular Filtration Rate (GFR) and Staging [facility] of Kidney Disease* + + + + | GFR (mL/min/1.73 m2)| With Kidney Damage|Without Kidney Damage + + + + |>90|Stage one| Normal + + + + |60-89|Stage two| Decreased GFR + + + + |30-59|Stage three| Stage three + + + + |15-29|Stage four | Stage four + + + + |<15 (or dialysis)|Stage five | Stage five + + + + *Each stage assumes the associated GFR level has been in effect for at least three months.Stages 1 to 5, with or without kidney disease, indicate chronic kidney disease. Notes: Determination of stages one and two (with eGFR >59mL/min/1.73 m2) requires estimation of kidney damage for at least three months as defined by structural or functional abnormalities of the kidney, manifested by either: Pathological abnormalities or Markers of kidney damage (including abnormalities in the composition of the blood or urine or abnormalities in imaging tests). Performing Organization Address City/State/Zipcode Phone Number [facility] CLIA: [id number], [address] [place] [address] [phone] [facility] Prepare Packed RBC (in units), 1 Units (05/06/2019 5:50 PM CDT) Cross Match Result Compatible LAB ISBT Blood Type Code 5100 LAB Unit Blood Type O Pos LAB Unit Number [id number] LAB Blood Expiration Date & LAB Time Status Information Issued LAB Product Identification Red Blood Cells LAB Product Code [id number] LAB Comment: Performed at [facility] Services - [facility] Blood Bank [address] [place] [address] Toll Free: [phone] CLIA No. [id number] Specimen Performing Organization Address City/State/Zipcode Phone Number BLD LAB Prepare Packed RBC (in units), 1 Units (05/06/2019 3:24 PM CDT) Pathologist [facility] Cross Match Result Compatible LAB ISBT Blood Type Code 5100 LAB Unit Blood Type O Pos LAB Unit Number [id number] LAB Blood Expiration Date & LAB Time Status Information Issued LAB Product Identification Red Blood Cells LAB Product Code [id number] LAB Comment: Performed at [facility] Services - [facility] Blood [place] [address] Toll Free: [phone] CLIA No. [id number] Specimen Performing Organization Address City/[facility]/Zipcode Phone Number D LAB PROFILE / HEMOGRAM (05/06/2019 2:57 PM CDT) Pathologist [facility] WBC 16.45 (H) 4.30 - 11.10 [facility] 10*3/L SERVICES RBC 1.99 (L) 3.93 - 5.25 [facility] 10*6/L SERVICES HGB 5.9 (L) 11.6 - 15.0 g/dL [facility] HCT 19.0 (L) 35.7 - 45.2 % [facility] MCH 29.6 25.9 - 32.8 pg [facility] MCV 95.5 80.6 - 95.5 fL [facility] MCHC 31.1 (L) 31.6 - 35.1 g/dL [facility] PLT 127 (L) 166 - 358 10*3/L [facility] MPV 11.7 9.5 - 12.9 fL [facility] RDW-CV 19.0 (H) 12.0 - 15.5 % [facility] RDW-SD 63.9 (H) 39.0 - 49.9 fL [facility] NRBC x10^3 0.32 10*3/L [facility] NRBC/100 WBC 1.9 0.0 - 10.0 /100 [facility] WBCs SERVICES IPF % 1.3 - 7.7 % [facility] Specimen Blood - LINE, VENOUS Performing Organization Address City/State/Zipcode Phone Number [facility] CLIA: [id number], [address] [place] [address] [phone] [facility] Type and Screen - ONCE HALI (05/06/2019 1:44 PM CDT) ABO & RH O POSITIVE LAB Comment: Performed at [facility] Laboratory Services - [facility] Blood [place] [address] Toll Free: [phone] CLIA No. [id number] IAT Negative LAB Comment: Performed at [facility] Laboratory Services - [facility] Blood [place] [address] Toll Free: [phone] CLIA No. [id number] Specimen VENOUS Performing Organization Address City/State/Zipcode Phone Number D LAB BASIC METABOLIC PANEL (NA, K, CL, CO2, GLUCOSE, BUN, CREATININE, CA) (2018 4:47 AM CDT) NA 132 (L) 135 - 145 [facility] mmol/L SERVICES K 4.6 3.5 - 5.0 [facility] mmol/L SERVICES CL 102 98 - 108 mmol/L [facility] CO2 TOTAL 29 23 - 31 mmol/L [facility] AGAP 1 (L) 2 - 16 [facility] BUN 51 (H) 7 - 23 mg/dL [facility] GLUCOSE 78 70 - 110 mg/dL [facility] CREATININE 2.88 (H) 0.50 - 1.04 [facility] mg/dL SERVICES CALCIUM 8.1 (L) 8.6 - 10.6 [facility] mg/dL SERVICES eGFR Calculation 15.8 mL/min/1.73m2 [facility] (Non- SERVICES [place]ian) eGFR Calculation 19.2 mL/min/1.73m2 [facility] () SERVICES Specimen Blood - CENTRAL VENOUS LINE Narrative Performed At Association of Glomerular Filtration Rate (GFR) and Staging [facility] of Kidney Disease* + + + + | GFR (mL/min/1.73 m2)| With Kidney Damage|Without Kidney Damage + + + + |>90|Stage one| Normal + + + + |60-89|Stage two| Decreased GFR + + + + |30-59|Stage three| Stage three + + + + |15-29|Stage four | Stage four + + + + |<15 (or dialysis)|Stage five | Stage five + + + + *Each stage assumes the associated GFR level has been in effect for at least three months.Stages 1 to 5, with or without kidney disease, indicate chronic kidney disease. Notes: Determination of stages one and two (with eGFR >59mL/min/1.73 m2) requires estimation of kidney damage for at least three months as defined by structural or functional abnormalities of the kidney, manifested by either: Pathological abnormalities or Markers of kidney damage (including abnormalities in the composition of the blood or urine or abnormalities in imaging tests). Performing Organization Address City/State/Zipcode Phone Number [facility] CLIA: [id number], [address] [place] [phone] [facility] aPTT (05/06/2019 4:47 AM CDT) APTT Patient 30 26 - 36 Seconds [facility] Specimen Blood - CENTRAL VENOUS LINE Performing Organization Address [facility]/Zipcode Phone Number [facility] CLIA: [id number], [address] [place] [phone] [facility] PROFILE / HEMOGRAM (05/06/2019 4:46 AM CDT) WBC 12.73 (H) 4.30 - 11.10 [facility] 10*3/L SERVICES RBC 2.27 (L) 3.93 - 5.25 [facility] 10*6/L SERVICES HGB 6.8 (L) 11.6 - 15.0 g/dL [facility] HCT 21.9 (L) 35.7 - 45.2 % [facility] MCH 30.0 25.9 - 32.8 pg [facility] MCV 96.5 (H) 80.6 - 95.5 fL [facility] MCHC 31.1 (L) 31.6 - 35.1 g/dL [facility] PLT 125 (L) 166 - 358 10*3/L [facility] MPV 11.4 9.5 - 12.9 fL [facility] RDW-CV 19.4 (H) 12.0 - 15.5 % [facility] RDW-SD 65.2 (H) 39.0 - 49.9 fL [facility] NRBC x10^3 0.11 10*3/L [facility] NRBC/100 WBC 0.9 0.0 - 10.0 /100 [facility] WBCs SERVICES IPF % 1.3 - 7.7 % [facility] Specimen Blood - CENTRAL VENOUS LINE Performing Organization Address City/[facility]/Zipcode Phone Number [facility] CLIA: [id number], [address] [place] [phone] [facility] AC PANEL 20 + LACTIC ACID (05/05/2019 11:56 AM CDT) PH 7.47 (H) 7.35 - 7.45 [facility] PCO2 39 35 - 45 mmHg [facility] PO2 426 (H) 80 - 100 mmHg [facility] HCO3 28 (H) 22 - 26 mEq/L [facility] BE 3.5 (H) -3.0 - 3.0 mEq/L [facility] THB 8.6 (L) 12.0 - 16.0 g/dL [facility] %O2HB 99.0 94.0 - 99.0 % [facility] %COHB ART 0.0 0.0 - 1.5 % [facility] %METHB ART 0.4 0.4 - 1.5 % [facility] VOL%O2 ART 13.2 (L) 15.0 - 23.0 % [facility] NA 131 (L) 135 - 145 mmol/L [facility] K+ 4.4 3.5 - 5.0 mmol/L [facility] AC CA IONZ 4.80 4.50 - 5.30 mg/dL [facility] GLUCOSE 91 70 - 110 mg/dL [facility] LACTIC ACID 1.37 0.50 - 2.20 mmol/L [facility] Specimen Blood - ARTERIAL Performing Organization Address City/[facility]/Zipcode Phone Number [facility] CLIA: [id number], [address] [place] [address] [phone] [facility] POCT GLUCOSE (AUTOMATED) (05/05/2019 10:29 AM CDT) POCT GLU 96 70 - 110 mg/dL [facility] Specimen Blood Performing Organization Address City/[facility]/Zipcode Phone Number [facility] CLIA: [id number], [address] [place] [address] [facility] BASIC METABOLIC PANEL (NA, K, CL, CO2, GLUCOSE, BUN, CREATININE, CA) (2018 4:14 AM CDT) NA 130 (L) 135 - 145 [facility] mmol/L SERVICES K 4.9 3.5 - 5.0 [facility] mmol/L SERVICES CL 100 98 - 108 mmol/L [facility] CO2 TOTAL 31 23 - 31 mmol/L [facility] AGAP <1 (L) 2 - 16 [facility] BUN 50 (H) 7 - 23 mg/dL [facility] GLUCOSE 91 70 - 110 mg/dL [facility] CREATININE 2.97 (H) 0.50 - 1.04 [facility] mg/dL SERVICES CALCIUM 8.2 (L) 8.6 - 10.6 [facility] mg/dL SERVICES eGFR Calculation 15.3 mL/min/1.73m2 [facility] (Non- SERVICES [place]ian) eGFR Calculation 18.5 mL/min/1.73m2 [facility] () SERVICES Specimen Blood - CENTRAL VENOUS LINE Narrative Performed At [facility] Glomerular Filtration Rate (GFR) and Staging [facility] of Kidney Disease* + + + + | GFR (mL/min/1.73 m2)| With Kidney Damage|Without Kidney Damage + + + + |>90|Stage one| Normal + + + + |60-89|Stage two| Decreased GFR + + + + |30-59|Stage three| Stage three + + + + |15-29|Stage four | Stage four + + + + |<15 (or dialysis)|Stage five | Stage five + + + + *Each stage assumes the associated GFR level has been in effect for at least three months.Stages 1 to 5, with or without kidney disease, indicate chronic kidney disease. Notes: Determination of stages one and two (with eGFR >59mL/min/1.73 m2) requires estimation of kidney damage for at least three months as defined by structural or functional abnormalities of the kidney, manifested by either: Pathological abnormalities or Markers of kidney damage (including abnormalities in the composition of the blood or urine or abnormalities in imaging tests). Performing Organization Address City/State/Zipcode Phone Number [facility] CLIA: [id number], [address] [place] [address] [phone] [facility] aPTT (05/05/2019 4:14 AM CDT) APTT Patient 28 26 - 36 Seconds [facility] Specimen Blood - CENTRAL VENOUS LINE Performing Organization Address [facility]/Zipcode Phone Number [facility] CLIA: [id number], [address] [place] [address] [phone] [facility] PROFILE / HEMOGRAM (05/05/2019 4:14 AM CDT) WBC 11.73 (H) 4.30 - 11.10 [facility] 10*3/L SERVICES RBC 2.41 (L) 3.93 - 5.25 [facility] 10*6/L SERVICES HGB 7.2 (L) 11.6 - 15.0 g/dL [facility] HCT 22.7 (L) 35.7 - 45.2 % [facility] MCH 29.9 25.9 - 32.8 pg [facility] MCV 94.2 80.6 - 95.5 fL [facility] MCHC 31.7 31.6 - 35.1 g/dL [facility] PLT 120 (L) 166 - 358 10*3/L [facility] MPV 11.4 9.5 - 12.9 fL [facility] RDW-CV 18.7 (H) 12.0 - 15.5 % [facility] RDW-SD 62.3 (H) 39.0 - 49.9 fL [facility] NRBC x10^3 0.07 10*3/L [facility] NRBC/100 WBC 0.6 0.0 - 10.0 /100 [facility] WBCs SERVICES IPF % 1.3 - 7.7 % [facility] Specimen Blood - CENTRAL VENOUS LINE Performing Organization Address City/State/Zipcode Phone Number [facility] CLIA: [id number], [address] [place] [address] [phone] [facility] BASIC METABOLIC PANEL (NA, K, CL, CO2, GLUCOSE, BUN, CREATININE, CA) (2018 3:52 AM CDT) NA 132 (L) 135 - 145 [facility] mmol/L SERVICES K 4.6 3.5 - 5.0 [facility] mmol/L SERVICES CL 100 98 - 108 mmol/L [facility] CO2 TOTAL 28 23 - 31 mmol/L [facility] AGAP 4 2 - 16 [facility] BUN 40 (H) 7 - 23 mg/dL [facility] GLUCOSE 114 (H) 70 - 110 mg/dL [facility] CREATININE 2.48 (H) 0.50 - 1.04 [facility] mg/dL SERVICES CALCIUM 8.1 (L) 8.6 - 10.6 [facility] mg/dL SERVICES eGFR Calculation 18.8 mL/min/1.73m2 [facility] (Non- SERVICES Jordanian) eGFR Calculation 22.8 mL/min/1.73m2 [facility] () SERVICES Specimen Blood - CENTRAL VENOUS LINE Narrative Performed At [facility] Glomerular Filtration Rate (GFR) and Staging [facility] of Kidney Disease* + + + + | GFR (mL/min/1.73 m2)| With Kidney Damage|Without Kidney Damage + + + + |>90|Stage one| Normal + + + + |60-89|Stage two| Decreased GFR + + + + |30-59|Stage three| Stage three + + + + |15-29|Stage four | Stage four + + + + |<15 (or dialysis)|Stage five | Stage five + + + + *Each stage assumes the associated GFR level has been in effect for at least three months.Stages 1 to 5, with or without kidney disease, indicate chronic kidney disease. Notes: Determination of stages one and two (with eGFR >59mL/min/1.73 m2) requires estimation of kidney damage for at least three months as defined by structural or functional abnormalities of the kidney, manifested by either: Pathological abnormalities or Markers of kidney damage (including abnormalities in the composition of the blood or urine or abnormalities in imaging tests). Performing Organization Address City/[facility]/Zipcode Phone Number [facility] CLIA: [id number], [address] [place] [phone] aPTT (05/04/2019 3:52 AM CDT) APTT Patient 27 26 - 36 Seconds [facility] Specimen Blood - CENTRAL VENOUS LINE Performing Organization Address City/[facility]/Zipcode Phone Number [facility] CLIA: [id number], [address] [place] [phone] [facility] Hepatitis B Surface Antibody (HBsAb) (05/03/2019 11:29 AM CDT) HBsAB Indeterminate [facility] HBsAb 6.40 mIU/mL [facility] Semi-Quantitative SERVICES Specimen Blood - LINE, ARTERIAL Narrative Performed At Unable to determine if antibody to Hepatitis B Surface [facility] Antigen is present at levels consistent with immunity.Patient's immune status should be assessed with other clinical information and/or retesting in 4-6 weeks as clinically indicated.If any questions, please contact Clinical Chemistry Director applications programmer analyst at . Unable to determine if antibody to Hepatitis B Surface Antigen is present at levels consistent with immunity.Patient's immune status should be assessed with other clinical information and/or retesting in 4-6 weeks as clinically indicated.If any questions, please contact Clinical Chemistry Director applications programmer analyst at . Interpretation:Hepatitis B Surface Antibody Negative - Patient is considered to be not immune to infection with HBV. Positive - Anti-HBs detected at greater than or equal to 12 mIU/mL.Patient is considered to be immune to infection with HBV. Performing Organization Address City/State/Zipcode Phone Number [facility] CLIA: [id number], [address] [place] [phone] [facility] Hepatitis B Surface Antigen (HBsAg) (05/03/2019 7:42 AM CDT) HBsAg HEPATITIS B Negative [facility] SURFACE ANTIGEN SERVICES NEGATIVE HBsAg 0.05 [facility] Semi-Quantitative SERVICES Specimen Blood - CENTRAL VENOUS LINE Performing Organization Address City/State/Zipcode Phone Number [facility] CLIA: [id number], [address] [place] [phone] [facility] PHOSPHORUS (05/03/2019 7:42 AM CDT) PHOSPHORUS 2.5 2.5 - 5.0 mg/dL [facility] Specimen Blood - CENTRAL VENOUS LINE Performing Organization Address City/[facility]/Zipcode Phone Number [facility] CLIA: [id number], [address] [place] [phone] [facility] MAGNESIUM (05/03/2019 7:42 AM CDT) MAGNESIUM 2.4 1.7 - 2.4 mg/dL [facility] Specimen Blood - CENTRAL VENOUS LINE Performing Organization Address City/[facility] Phone Number [facility] CLIA: [id number], [address] [place] [address] [facility] aPTT (05/03/2019 5:15 AM CDT) APTT Patient 27 26 - 36 Seconds [facility] Specimen Blood - VENOUS Performing Organization Address City/[facility] Phone Number [facility] CLIA: [id number], [address] [place] [address] [facility] PHOSPHORUS (05/03/2019 5:14 AM CDT) PHOSPHORUS 2.5 2.5 - 5.0 mg/dL [facility] Specimen Blood - VENOUS Performing Organization Address City/[facility] Phone Number [facility] CLIA: [id number], [address] [place] [address] [facility] MAGNESIUM (05/03/2019 5:14 AM CDT) MAGNESIUM 2.4 1.7 - 2.4 mg/dL [facility] Specimen Blood - VENOUS Performing Organization Address [facility] Phone Number [facility] CLIA: [id number], [address] [place] [address] [facility] BASIC METABOLIC PANEL (NA, K, CL, CO2, GLUCOSE, BUN, CREATININE, CA) (2018 5:14 AM CDT) NA 131 (L) 135 - 145 [facility] mmol/L SERVICES K 4.8 3.5 - 5.0 [facility] mmol/L SERVICES CL 101 98 - 108 mmol/L [facility] CO2 TOTAL 29 23 - 31 mmol/L [facility] AGAP 1 (L) 2 - 16 [facility] BUN 44 (H) 7 - 23 mg/dL [facility] GLUCOSE 105 70 - 110 mg/dL [facility] CREATININE 2.68 (H) 0.50 - 1.04 [facility] mg/dL SERVICES CALCIUM 7.9 (L) 8.6 - 10.6 [facility] mg/dL SERVICES eGFR Calculation 17.2 mL/min/1.73m2 [facility] (Non- SERVICES [place]ian) eGFR Calculation 20.8 mL/min/1.73m2 [facility] () SERVICES Specimen Blood - VENOUS Narrative Performed At [facility] Glomerular Filtration Rate (GFR) and Staging [facility] of Kidney Disease* + + + + | GFR (mL/min/1.73 m2)| With Kidney Damage|Without Kidney Damage + + + + |>90|Stage one| Normal + + + + |60-89|Stage two| Decreased GFR + + + + |30-59|Stage three| Stage three + + + + |15-29|Stage four | Stage four + + + + |<15 (or dialysis)|Stage five | Stage five + + + + *Each stage assumes the associated GFR level has been in effect for at least three months.Stages 1 to 5, with or without kidney disease, indicate chronic kidney disease. Notes: Determination of stages one and two (with eGFR >59mL/min/1.73 m2) requires estimation of kidney damage for at least three months as defined by structural or functional abnormalities of the kidney, manifested by either: Pathological abnormalities or Markers of kidney damage (including abnormalities in the composition of the blood or urine or abnormalities in imaging tests). Performing Organization Address City/State/Zipcode Phone Number [facility] CLIA: [id number], [address] [place] [address] [facility] BASIC METABOLIC PANEL (NA, K, CL, CO2, GLUCOSE, BUN, CREATININE, CA) (2018 4:11 AM CDT) NA 133 (L) 135 - 145 [facility] mmol/L SERVICES K 4.7 3.5 - 5.0 [facility] mmol/L SERVICES CL 103 98 - 108 mmol/L [facility] CO2 TOTAL 28 23 - 31 mmol/L [facility] AGAP 2 2 - 16 [facility] BUN 39 (H) 7 - 23 mg/dL [facility] GLUCOSE 98 70 - 110 mg/dL [facility] CREATININE 2.35 (H) 0.50 - 1.04 [facility] mg/dL SERVICES CALCIUM 7.9 (L) 8.6 - 10.6 [facility] mg/dL SERVICES eGFR Calculation 20.0 mL/min/1.73m2 [facility] (Non- SERVICES Jordanian) eGFR Calculation 24.2 mL/min/1.73m2 [facility] () SERVICES Specimen Blood - VENOUS Narrative Performed At Association of Glomerular Filtration Rate (GFR) and Staging [facility] of Kidney Disease* + + + + | GFR (mL/min/1.73 m2)| With Kidney Damage|Without Kidney Damage + + + + |>90|Stage one| Normal + + + + |60-89|Stage two| Decreased GFR + + + + |30-59|Stage three| Stage three + + + + |15-29|Stage four | Stage four + + + + |<15 (or dialysis)|Stage five | Stage five + + + + *Each stage assumes the associated GFR level has been in effect for at least three months.Stages 1 to 5, with or without kidney disease, indicate chronic kidney disease. Notes: Determination of stages one and two (with eGFR >59mL/min/1.73 m2) requires estimation of kidney damage for at least three months as defined by structural or functional abnormalities of the kidney, manifested by either: Pathological abnormalities or Markers of kidney damage (including abnormalities in the composition of the blood or urine or abnormalities in imaging tests). Performing Organization Address City/[facility]/Zipcode Phone Number [facility] CLIA: [id number], [address] [place] [address] [facility] aPTT (05/02/2019 4:11 AM CDT) APTT Patient 26 26 - 36 Seconds [facility] Specimen Blood - VENOUS Performing Organization Address [facility] Phone Number [facility] CLIA: [id number], [address] [place] [phone] [facility] BASIC METABOLIC PANEL (NA, K, CL, CO2, GLUCOSE, BUN, CREATININE, CA) (2018 3:17 AM CDT) NA 135 135 - 145 [facility] mmol/L SERVICES K 3.3 (L) 3.5 - 5.0 [facility] mmol/L SERVICES CL 98 98 - 108 mmol/L [facility] CO2 TOTAL 28 23 - 31 mmol/L [facility] AGAP 9 2 - 16 [facility] BUN 25 (H) 7 - 23 mg/dL [facility] GLUCOSE 108 70 - 110 mg/dL [facility] CREATININE 1.69 (H) 0.50 - 1.04 [facility] mg/dL SERVICES CALCIUM 8.4 (L) 8.6 - 10.6 [facility] mg/dL SERVICES eGFR Calculation 29.3 mL/min/1.73m2 [facility] (Non- SERVICES [place]ian) eGFR Calculation 35.5 mL/min/1.73m2 [facility] () SERVICES Specimen Blood - CENTRAL VENOUS LINE Narrative Performed At Association of Glomerular Filtration Rate (GFR) and Staging [facility] of Kidney Disease* + + + + | GFR (mL/min/1.73 m2)| With Kidney Damage|Without Kidney Damage + + + + |>90|Stage one| Normal + + + + |60-89|Stage two| Decreased GFR + + + + |30-59|Stage three| Stage three + + + + |15-29|Stage four | Stage four + + + + |<15 (or dialysis)|Stage five | Stage five + + + + *Each stage assumes the associated GFR level has been in effect for at least three months.Stages 1 to 5, with or without kidney disease, indicate chronic kidney disease. Notes: Determination of stages one and two (with eGFR >59mL/min/1.73 m2) requires estimation of kidney damage for at least three months as defined by structural or functional abnormalities of the kidney, manifested by either: Pathological abnormalities or Markers of kidney damage (including abnormalities in the composition of the blood or urine or abnormalities in imaging tests). Performing Organization Address City/[facility] Phone Number [facility] CLIA: [id number], [address] [place] [address] [phone] [facility]US (05/01/2019 3:17 AM CDT) PHOSPHORUS 2.4 (L) 2.5 - 5.0 mg/dL [facility] Specimen Blood - CENTRAL VENOUS LINE Performing Organization Address [facility] Phone Number [facility] CLIA: [id number], [address] [place] [phone] MAGNESIUM (05/01/2019 3:17 AM CDT) MAGNESIUM 2.1 1.7 - 2.4 mg/dL [facility] Specimen Blood - CENTRAL VENOUS LINE Performing Organization Address City/[facility]/Zipcode Phone Number [facility] CLIA: [id number], [address] [place] [address] [phone] [facility] aPTT (05/01/2019 3:17 AM CDT) APTT Patient 26 26 - 36 Seconds [facility] Specimen Blood - CENTRAL VENOUS LINE Performing Organization Address City/[facility] Phone Number [facility] CLIA: [id number], [address] [place] [phone] [facility] PROFILE / HEMOGRAM (05/01/2019 3:17 AM CDT) WBC 10.95 4.30 - 11.10 [facility] 10*3/L SERVICES RBC 3.42 (L) 3.93 - 5.25 [facility] 10*6/L SERVICES HGB 10.1 (L) 11.6 - 15.0 g/dL [facility] HCT 31.6 (L) 35.7 - 45.2 % [facility] MCH 29.5 25.9 - 32.8 pg [facility] MCV 92.4 80.6 - 95.5 fL [facility] MCHC 32.0 31.6 - 35.1 g/dL [facility] PLT 108 (L) 166 - 358 10*3/L [facility] MPV 10.9 9.5 - 12.9 fL [facility] RDW-CV 18.3 (H) 12.0 - 15.5 % [facility] RDW-SD 57.5 (H) 39.0 - 49.9 fL [facility] NRBC x10^3 0.10 10*3/L [facility] NRBC/100 WBC 0.9 0.0 - 10.0 /100 [facility] WBCs SERVICES IPF % 1.3 - 7.7 % [facility] Specimen Blood - CENTRAL VENOUS LINE Performing Organization Address City/[facility] Phone Number [facility] CLIA: [id number], [address] [place] [phone] PROFILE / HEMOGRAM (05/01/2019 12:36 AM CDT) WBC 10.43 4.30 - 11.10 [facility] 10*3/L SERVICES RBC 3.33 (L) 3.93 - 5.25 [facility] 10*6/L SERVICES HGB 9.8 (L) 11.6 - 15.0 g/dL [facility] HCT 30.0 (L) 35.7 - 45.2 % [facility] MCH 29.4 25.9 - 32.8 pg [facility] MCV 90.1 80.6 - 95.5 fL [facility] MCHC 32.7 31.6 - 35.1 g/dL [facility] PLT 101 (L) 166 - 358 10*3/L [facility] MPV 11.0 9.5 - 12.9 fL [facility] RDW-CV 18.3 (H) 12.0 - 15.5 % [facility] RDW-SD 55.5 (H) 39.0 - 49.9 fL [facility] NRBC x10^3 0.09 10*3/L [facility] NRBC/100 WBC 0.9 0.0 - 10.0 /100 [facility] WBCs SERVICES IPF % 1.3 - 7.7 % [facility] Specimen Blood - VENOUS Performing Organization Address City/State/Zipcode Phone Number [facility] CLIA: [id number], [address] [place] [phone] PROFILE / HEMOGRAM (04/30/2019 6:26 PM CDT) WBC 8.02 4.30 - 11.10 [facility] 10*3/L SERVICES RBC 2.91 (L) 3.93 - 5.25 [facility] 10*6/L SERVICES HGB 8.6 (L) 11.6 - 15.0 [facility] g/dL SERVICES HCT 26.5 (L) 35.7 - 45.2 % [facility] MCH 29.6 25.9 - 32.8 pg [facility] MCV 91.1 80.6 - 95.5 fL [facility] MCHC 32.5 31.6 - 35.1 [facility] g/dL SERVICES PLT 78 (L) 166 - 358 [facility] 10*3/L SERVICES MPV 10.6 9.5 - 12.9 fL [facility] RDW-CV 18.1 (H) 12.0 - 15.5 % [facility] RDW-SD 57.1 (H) 39.0 - 49.9 fL [facility] NRBC x10^3 0.08 10*3/L [facility] NRBC/100 WBC 1.0 0.0 - 10.0 [facility] /100 WBCs SERVICES IPF % 4.4Comment: Platelet 1.3 - 7.7 % [facility] count measured by SERVICES fluorescence method. Specimen Blood - CENTRAL VENOUS LINE Performing Organization Address City/State/Zipcode Phone Number [facility] CLIA: [id number], [address] [place] [phone] [facility] PROFILE / HEMOGRAM (04/30/2019 2:28 PM CDT) WBC 8.57 4.30 - 11.10 [facility] 10*3/L SERVICES RBC 2.94 (L) 3.93 - 5.25 [facility] 10*6/L SERVICES HGB 8.8 (L) 11.6 - 15.0 [facility] g/dL SERVICES HCT 26.8 (L) 35.7 - 45.2 % [facility] MCH 29.9 25.9 - 32.8 pg [facility] MCV 91.2 80.6 - 95.5 fL [facility] MCHC 32.8 31.6 - 35.1 [facility] g/dL SERVICES PLT 79 (L) 166 - 358 [facility] 10*3/L SERVICES MPV 11.1 9.5 - 12.9 fL [facility] RDW-CV 18.1 (H) 12.0 - 15.5 % [facility] RDW-SD 56.7 (H) 39.0 - 49.9 fL [facility] NRBC x10^3 0.08 10*3/L [facility] NRBC/100 WBC 0.9 0.0 - 10.0 [facility] /100 WBCs SERVICES IPF % 4.5Comment: Platelet 1.3 - 7.7 % [facility] count measured by SERVICES fluorescence method. Specimen Blood - CENTRAL VENOUS LINE Performing Organization Address [facility] Phone Number [facility] CLIA: [id number], [address] [place] [address] [phone] [facility] PROFILE / HEMOGRAM (04/30/2019 8:49 AM CDT) [facility] WBC 8.73 4.30 - 11.10 [facility] 10*3/L SERVICES RBC 2.95 (L) 3.93 - 5.25 [facility] 10*6/L SERVICES HGB 8.6 (L) 11.6 - 15.0 [facility] g/dL SERVICES HCT 26.9 (L) 35.7 - 45.2 % [facility] MCH 29.2 25.9 - 32.8 pg [facility] MCV 91.2 80.6 - 95.5 fL [facility] MCHC 32.0 31.6 - 35.1 [facility] g/dL SERVICES PLT 74 (L) 166 - 358 [facility] 10*3/L SERVICES MPV 11.5 9.5 - 12.9 fL [facility] RDW-CV 18.0 (H) 12.0 - 15.5 % [facility] RDW-SD 57.2 (H) 39.0 - 49.9 fL [facility] NRBC x10^3 0.10 10*3/L [facility] NRBC/100 WBC 1.1 0.0 - 10.0 [facility] /100 WBCs SERVICES IPF % 4.4Comment: Platelet 1.3 - 7.7 % [facility] count measured by SERVICES fluorescence method. Specimen Blood - CENTRAL VENOUS LINE Performing Organization Address City/[facility]/Zipcode Phone Number [facility] CLIA: [id number], [address] [place] [address] [phone] [facility] Prepare Packed RBC (in units), 1 Units (04/30/2019 4:57 AM CDT) [facility] Cross Match Result Compatible LAB ISBT Blood Type Code 5100 LAB Unit Blood Type O Pos LAB Unit Number [id number] LAB Blood Expiration Date & [id number] LAB Time Status Information Issued LAB Product Identification Red Blood Cells LAB Product Code [id number] LAB Comment: Performed at [facility] Services - [facility] Blood Bank [address] [place] [address], [place] [address] Toll Free: [phone] CLIA No. [id number] Specimen Performing Organization Address City/[facility]/Zipcode Phone Number [facility] aPTT (04/30/2019 3:45 AM CDT) APTT Patient 24 (L) 26 - 36 Seconds [facility] Specimen Blood - VENOUS Performing Organization Address City/[facility] Phone Number [facility] CLIA: [id number], [address] [place] [address] [facility] PROFILE / HEMOGRAM (04/30/2019 3:45 AM CDT) WBC 9.10 4.30 - 11.10 [facility] 10*3/L SERVICES RBC 2.29 (L) 3.93 - 5.25 [facility] 10*6/L SERVICES HGB 6.7 (L) 11.6 - 15.0 [facility] g/dL SERVICES HCT 21.2 (L) 35.7 - 45.2 % [facility] MCH 29.3 25.9 - 32.8 pg [facility] MCV 92.6 80.6 - 95.5 fL [facility] MCHC 31.6 31.6 - 35.1 [facility] g/dL SERVICES PLT 83 (L) 166 - 358 [facility] 10*3/L SERVICES MPV 11.4 9.5 - 12.9 fL [facility] RDW-CV 19.2 (H) 12.0 - 15.5 % [facility] RDW-SD 63.1 (H) 39.0 - 49.9 fL [facility] NRBC x10^3 0.12 10*3/L [facility] NRBC/100 WBC 1.3 0.0 - 10.0 [facility] /100 WBCs SERVICES IPF % 4.9Comment: Platelet 1.3 - 7.7 % [facility] count measured by SERVICES fluorescence method. Specimen Blood - VENOUS Performing Organization Address City/[facility]/Zipcode Phone Number [facility] CLIA: [id number], [address] [place] [address] [phone] [facility] PROFILE / HEMOGRAM (04/29/2019 5:14 PM CDT) WBC 10.59 4.30 - 11.10 [facility] 10*3/L SERVICES RBC 2.61 (L) 3.93 - 5.25 [facility] 10*6/L SERVICES HGB 7.7 (L) 11.6 - 15.0 [facility] g/dL SERVICES HCT 24.6 (L) 35.7 - 45.2 % [facility] MCH 29.5 25.9 - 32.8 pg [facility] MCV 94.3 80.6 - 95.5 fL [facility] MCHC 31.3 (L) 31.6 - 35.1 [facility] g/dL SERVICES PLT 95 (L) 166 - 358 [facility] 10*3/L SERVICES MPV 11.1 9.5 - 12.9 fL [facility] RDW-CV 19.4 (H) 12.0 - 15.5 % [facility] RDW-SD 63.9 (H) 39.0 - 49.9 fL [facility] NRBC x10^3 0.32 10*3/L [facility] NRBC/100 WBC 3.0 0.0 - 10.0 [facility] /100 WBCs SERVICES IPF % 5.6Comment: Platelet 1.3 - 7.7 % [facility] count measured by SERVICES fluorescence method. Specimen Blood - CENTRAL VENOUS LINE Performing Organization Address City/State/Zipcode Phone Number [facility] CLIA: [id number], [address] [place] [phone] [facility] PROFILE / HEMOGRAM (04/29/2019 12:04 PM CDT) WBC 10.20 4.30 - 11.10 [facility] 10*3/L SERVICES RBC 2.58 (L) 3.93 - 5.25 [facility] 10*6/L SERVICES HGB 7.8 (L) 11.6 - 15.0 [facility] g/dL SERVICES HCT 24.0 (L) 35.7 - 45.2 % [facility] MCH 30.2 25.9 - 32.8 pg [facility] MCV 93.0 80.6 - 95.5 fL [facility] MCHC 32.5 31.6 - 35.1 [facility] g/dL SERVICES PLT 92 (L) 166 - 358 [facility] 10*3/L SERVICES MPV 11.1 9.5 - 12.9 fL [facility] RDW-CV 19.3 (H) 12.0 - 15.5 % [facility] RDW-SD 63.2 (H) 39.0 - 49.9 fL [facility] NRBC x10^3 0.25 10*3/L [facility] NRBC/100 WBC 2.5 0.0 - 10.0 [facility] /100 WBCs SERVICES IPF % 6.1Comment: Platelet 1.3 - 7.7 % [facility] count measured by SERVICES fluorescence method. Specimen Blood - CENTRAL VENOUS LINE Performing Organization Address City/State/Zipcode Phone Number [facility] CLIA: [id number], [address] [place] [address] [facility] XR CHEST 1 VW (04/29/2019 5:23 AM CDT) Specimen Narrative Performed At * * * * * * * * ORIGINAL REPORT * * * * * * * * PACS/VR/DOSE EXAM: XR CHEST 1 VW HISTORY: line placement on left jugalar COMPARISON: None. FINDINGS: The tip of the left jugular vein catheter is at the atriocaval junction. The tips of the double-lumen right IJ catheter are in the superior vena cava. The heart and great vessels are normal and the lungs are well expanded and clear. Procedure Note [facility], Radiant Results Inft User - 04/29/2019 8:04 AM CDT * * * * * * * * ORIGINAL REPORT * * * * * * * * EXAM: XR CHEST 1 VW HISTORY: line placement on left jugalar COMPARISON: None. FINDINGS: The tip of the left jugular vein catheter is at the atriocaval junction. The tips of the double-lumen right IJ catheter are in the superior vena cava. The heart and great vessels are normal and the lungs are well expanded and clear. Performing Organization Address City/State/Zipcode Phone Number PACS/VR/DOSE PROFILE / HEMOGRAM (04/29/2019 5:07 AM CDT) WBC 10.78 4.30 - 11.10 [facility] 10*3/L SERVICES RBC 2.56 (L) 3.93 - 5.25 [facility] 10*6/L SERVICES HGB 7.6 (L) 11.6 - 15.0 [facility] g/dL SERVICES HCT 23.9 (L) 35.7 - 45.2 % [facility] MCH 29.7 25.9 - 32.8 pg [facility] MCV 93.4 80.6 - 95.5 fL [facility] MCHC 31.8 31.6 - 35.1 [facility] g/dL SERVICES PLT 85 (L) 166 - 358 [facility] 10*3/L SERVICES MPV 11.5 9.5 - 12.9 fL [facility] SERVICES RDW-CV 19.1 (H) 12.0 - 15.5 % [facility] RDW-SD 62.4 (H) 39.0 - 49.9 fL [facility] NRBC x10^3 0.18 10*3/L [facility] NRBC/100 WBC 1.7 0.0 - 10.0 [facility] /100 WBCs SERVICES IPF % 7.2Comment: Platelet 1.3 - 7.7 % [facility] count measured by SERVICES fluorescence method. Specimen Blood - VENOUS Performing Organization Address City/State/Zipcode Phone Number [facility] CLIA: [id number], [address] [place] [phone] [facility] BASIC METABOLIC PANEL (NA, K, CL, CO2, GLUCOSE, BUN, CREATININE, CA) (2018 5:07 AM CDT) NA 134 (L) 135 - 145 [facility] mmol/L SERVICES K 3.9 3.5 - 5.0 [facility] mmol/L SERVICES CL 102 98 - 108 mmol/L [facility] CO2 TOTAL 28 23 - 31 mmol/L [facility] AGAP 4 2 - 16 [facility] BUN 41 (H) 7 - 23 mg/dL [facility] GLUCOSE 80 70 - 110 mg/dL [facility] CREATININE 2.61 (H) 0.50 - 1.04 [facility] mg/dL SERVICES CALCIUM 7.7 (L) 8.6 - 10.6 [facility] mg/dL SERVICES eGFR Calculation 17.7 mL/min/1.73m2 [facility] (Non- SERVICES Jordanian) eGFR Calculation 21.5 mL/min/1.73m2 [facility] () SERVICES Specimen Blood - VENOUS Narrative Performed At [facility] Glomerular Filtration Rate (GFR) and Staging [facility] of Kidney Disease* + + + + | GFR (mL/min/1.73 m2)| With Kidney Damage|Without Kidney Damage + + + + |>90|Stage one| Normal + + + + |60-89|Stage two| Decreased GFR + + + + |30-59|Stage three| Stage three + + + + |15-29|Stage four | Stage four + + + + |<15 (or dialysis)|Stage five | Stage five + + + + *Each stage assumes the associated GFR level has been in effect for at least three months.Stages 1 to 5, with or without kidney disease, indicate chronic kidney disease. Notes: Determination of stages one and two (with eGFR >59mL/min/1.73 m2) requires estimation of kidney damage for at least three months as defined by structural or functional abnormalities of the kidney, manifested by either: Pathological abnormalities or Markers of kidney damage (including abnormalities in the composition of the blood or urine or abnormalities in imaging tests). Performing Organization Address [facility] Phone Number [facility] CLIA: [id number], [address] [place] [address] [phone] [facility] PHOSPHORUS (04/28/2019 4:00 PM CDT) PHOSPHORUS 3.0 2.5 - 5.0 mg/dL [facility] Specimen Blood - VENOUS Performing Organization Address [facility] Phone Number [facility] CLIA: [id number], [address] [place] [phone] [facility] MAGNESIUM (04/28/2019 4:00 PM CDT) MAGNESIUM 2.6 (H) 1.7 - 2.4 mg/dL [facility] Specimen Blood - VENOUS Performing Organization Address [facility] Phone Number [facility] CLIA: [id number], [address] [place] [address] [facility] BASIC METABOLIC PANEL (NA, K, CL, CO2, GLUCOSE, BUN, CREATININE, CA) (2018 4:00 PM CDT) NA 135 135 - 145 [facility] mmol/L SERVICES K 4.3 3.5 - 5.0 [facility] mmol/L SERVICES CL 103 98 - 108 mmol/L [facility] CO2 TOTAL 29 23 - 31 mmol/L [facility] AGAP 3 2 - 16 [facility] BUN 38 (H) 7 - 23 mg/dL [facility] GLUCOSE 96 70 - 110 mg/dL [facility] SERVICES CREATININE 2.36 (H) 0.50 - 1.04 [facility] mg/dL SERVICES CALCIUM 7.8 (L) 8.6 - 10.6 [facility] mg/dL SERVICES eGFR Calculation 19.9 mL/min/1.73m2 [facility] (Non- SERVICES [place]ian) eGFR Calculation 24.1 mL/min/1.73m2 [facility] () SERVICES Specimen Blood - VENOUS Narrative Performed At [facility] of Glomerular Filtration Rate (GFR) and Staging [facility] SERVICES of Kidney Disease* + + + + | GFR (mL/min/1.73 m2)| With Kidney Damage|Without Kidney Damage + + + + |>90|Stage one| Normal + + + + |60-89|Stage two| Decreased GFR + + + + |30-59|Stage three| Stage three + + + + |15-29|Stage four | Stage four + + + + |<15 (or dialysis)|Stage five | Stage five + + + + *Each stage assumes the associated GFR level has been in effect for at least three months.Stages 1 to 5, with or without kidney disease, indicate chronic kidney disease. Notes: Determination of stages one and two (with eGFR >59mL/min/1.73 m2) requires estimation of kidney damage for at least three months as defined by structural or functional abnormalities of the kidney, manifested by either: Pathological abnormalities or Markers of kidney damage (including abnormalities in the composition of the blood or urine or abnormalities in imaging tests). Performing Organization Address City/State/Zipcode Phone Number [facility] CLIA: [id number], [address] [place] [address] PROFILE / HEMOGRAM (04/28/2019 4:00 PM CDT) WBC 10.40 4.30 - 11.10 [facility] 10*3/L SERVICES RBC 2.67 (L) 3.93 - 5.25 [facility] 10*6/L SERVICES HGB 7.9 (L) 11.6 - 15.0 [facility] g/dL SERVICES HCT 24.6 (L) 35.7 - 45.2 % [facility] MCH 29.6 25.9 - 32.8 pg [facility] MCV 92.1 80.6 - 95.5 fL [facility] MCHC 32.1 31.6 - 35.1 [facility] g/dL SERVICES PLT 82 (L) 166 - 358 [facility] 10*3/L SERVICES MPV 10.5 9.5 - 12.9 fL [facility] RDW-CV 18.9 (H) 12.0 - 15.5 % [facility] RDW-SD 61.1 (H) 39.0 - 49.9 fL [facility] NRBC x10^3 0.07 10*3/L [facility] NRBC/100 WBC 0.7 0.0 - 10.0 [facility] /100 WBCs SERVICES IPF % 6.1Comment: Platelet 1.3 - 7.7 % [facility] count measured by SERVICES fluorescence method. Specimen Blood - VENOUS Performing Organization Address City/[facility]/Zipcode Phone Number [facility] CLIA: [id number], [address] [place] [address] [phone] [facility] MAGNESIUM (04/28/2019 2:51 PM CDT) Pathologist [facility] MAGNESIUM 2.2 1.7 - 2.4 mg/dL [facility] Specimen Blood - VENOUS Performing Organization Address City/[facility]/Zipcode Phone Number [facility] CLIA: [id number], [address] [place] [address] [facility] BASIC METABOLIC PANEL (NA, K, CL, CO2, GLUCOSE, BUN, CREATININE, CA) (2018 2:51 PM CDT) NA 132 (L) 135 - 145 [facility] mmol/L SERVICES K 6.6 (HH)Comment: 3.5 - 5.0 [facility] Slight hemolysis mmol/L SERVICES CL 98 98 - 108 [facility] mmol/L SERVICES CO2 TOTAL 25 23 - 31 [facility] mmol/L SERVICES AGAP 9 2 - 16 [facility] BUN 29 (H)Comment: 7 - 23 mg/dL [facility] Slight hemolysis SERVICES GLUCOSE 148 (H) 70 - 110 [facility] mg/dL SERVICES CREATININE 2.14 (H) 0.50 - 1.04 [facility] mg/dL SERVICES CALCIUM 6.1 (L) 8.6 - 10.6 [facility] mg/dL SERVICES eGFR Calculation 22.3 mL/min/1.73m2 [facility] (Non- SERVICES Jordanian) eGFR Calculation 27.0 mL/min/1.73m2 [facility] () SERVICES Specimen Blood - VENOUS Narrative Performed At Association of Glomerular Filtration Rate (GFR) and Staging [facility] of Kidney Disease* + + + + | GFR (mL/min/1.73 m2)| With Kidney Damage|Without Kidney Damage + + + + |>90|Stage one| Normal + + + + |60-89|Stage two| Decreased GFR + + + + |30-59|Stage three| Stage three + + + + |15-29|Stage four | Stage four + + + + |<15 (or dialysis)|Stage five | Stage five + + + + *Each stage assumes the associated GFR level has been in effect for at least three months.Stages 1 to 5, with or without kidney disease, indicate chronic kidney disease. Notes: Determination of stages one and two (with eGFR >59mL/min/1.73 m2) requires estimation of kidney damage for at least three months as defined by structural or functional abnormalities of the kidney, manifested by either: Pathological abnormalities or Markers of kidney damage (including abnormalities in the composition of the blood or urine or abnormalities in imaging tests). Performing Organization Address City/State/Zipcode Phone Number [facility] CLIA: [id number], [address] [place] [address] [phone] [facility] CT HEAD WO CONTRAST (04/28/2019 2:09 PM CDT) Specimen Impressions Performed At PACS/VR/DOSE No acute intracranial abnormalities. ILaverne MD., have reviewed this study and agree with the above report. Narrative Performed At * * * * * * * * ORIGINAL REPORT * * * * * * * * PACS/VR/DOSE CT HEAD WO CONTRAST HISTORY: 78-year-old female with new-onset ESRD, DIC, evaluate for altered mental status Seizure, new, abn neuro exam, nontraumatic COMPARISON: CT head without contrast, 04/13/2019 TECHNIQUE: CT head without contrast, with coronal and sagittal reformats. FINDINGS: The ventricles and cerebral sulci are normal in caliber and configuration. No hydrocephalus, midline shift or pathological extra-axial fluid collection is present. The basal cisterns are unremarkable. There is no acute intracranial hemorrhage or significant mass effect. Mineralization of the basal ganglia is redemonstrated. The guy-white matter differentiation is preserved. The mastoid air cells and paranasal air sinuses are clear. The calvarium and central skull base are unremarkable. Procedure Note [facility], Radiant Results Inft User - 04/28/2019 2:46 PM CDT * * * * * * * * ORIGINAL REPORT * * * * * * * * CT HEAD WO CONTRAST HISTORY: 78-year-old female with new-onset ESRD, DIC, evaluate for altered mental status Seizure, new, abn neuro exam, nontraumatic COMPARISON: CT head without contrast, 04/13/2019 TECHNIQUE: CT head without contrast, with coronal and sagittal reformats. FINDINGS: The ventricles and cerebral sulci are normal in caliber and configuration. No hydrocephalus, midline shift or pathological extra-axial fluid collection is present. The basal cisterns are unremarkable. There is no acute intracranial hemorrhage or significant mass effect. Mineralization of the basal ganglia is redemonstrated. The guy-white matter differentiation is preserved. The mastoid air cells and paranasal air sinuses are clear. The calvarium and central skull base are unremarkable. IMPRESSION No acute intracranial abnormalities. ILaverne MD., have reviewed this study and agree with the above report. Performing Organization Address City/State/Zipcode Phone Number PACS/VR/DOSE Prepare Packed RBC (in units), 1 Units (04/28/2019 12:36 PM CDT) Cross Match Result Compatible LAB ISBT Blood Type Code 5100 LAB Unit Blood Type O Pos LAB Unit Number [id number] LAB Blood Expiration Date & [id number] LAB Time Status Information Issued LAB Product Identification Red Blood Cells LAB Product Code [id number] LAB Comment: Performed at [facility] - GAL Blood Bank [address] [place] [address] Toll Free: [phone] CLIA No. [id number] Specimen Performing Organization Address City/State/Zipcode Phone Number BLD LAB aPTT (04/28/2019 12:22 PM CDT) APTT Patient 28 26 - 36 Seconds [facility] Specimen Blood - VENOUS Performing Organization Address City/[facility] Phone Number [facility] CLIA: [id number], [address] [place] [phone] [facility] FIBRINOGEN (04/28/2019 12:22 PM CDT) Fibrinogen 167 167 - 453 mg/dL [facility] Specimen Blood - VENOUS Performing Organization Address [facility] Phone Number [facility] CLIA: [id number], [address] [place] [phone] [facility] PROFILE / HEMOGRAM (04/28/2019 12:22 PM CDT) WBC 10.00 4.30 - 11.10 [facility] 10*3/L SERVICES RBC 1.90 (L) 3.93 - 5.25 [facility] 10*6/L SERVICES HGB 5.8 (L) 11.6 - 15.0 [facility] g/dL SERVICES HCT 18.5 (L) 35.7 - 45.2 % [facility] MCH 30.5 25.9 - 32.8 pg [facility] MCV 97.4 (H) 80.6 - 95.5 fL [facility] MCHC 31.4 (L) 31.6 - 35.1 [facility] g/dL SERVICES PLT 80 (L) 166 - 358 [facility] 10*3/L SERVICES MPV 11.1 9.5 - 12.9 fL [facility] RDW-CV 19.2 (H) 12.0 - 15.5 % [facility] RDW-SD 66.3 (H) 39.0 - 49.9 fL [facility] NRBC x10^3 0.13 10*3/L [facility] NRBC/100 WBC 1.3 0.0 - 10.0 [facility] /100 WBCs SERVICES IPF % 5.5Comment: Platelet 1.3 - 7.7 % [facility] count measured by SERVICES fluorescence method. Specimen Blood - VENOUS Performing Organization Address City/State/Zipcode Phone Number [facility] CLIA: [id number], [address] [place] [phone] [facility] PROTHROMBIN TIME / INR (04/28/2019 12:22 PM CDT) [facility] PROTIME PATIENT 11.8 10.1 - 12.6 [facility] Seconds SERVICES INR 1.1Comment: Normal [facility] INR <1.1; Warfarin SERVICES Therapeutic range 2.0 to 3.0 or 2.5 to 3.5, depending upon the indications. Specimen Blood - VENOUS Performing Organization Address [facility] Phone Number [facility] CLIA: [id number], [address] [place] [address] [phone] [facility] POCT GLUCOSE (AUTOMATED) (04/28/2019 10:51 AM CDT) [facility] POCT GLU 108 70 - 110 mg/dL [facility] Specimen Blood Performing Organization Address [facility] Phone Number [facility] CLIA: [id number], [address] [place] [address] [place] [place] Type and Screen - ONCE HALI (04/28/2019 3:10 AM CDT) [facility] ABO & RH O POSITIVE LAB Comment: Performed at [facility] Services - [facility] Blood [place] [address] Toll Free: [phone] CLIA No. [id number] IAT Negative LAB Comment: Performed at [facility] - [facility] Blood [address] [address] Toll Free: [phone] CLIA No. [id number] Specimen VENOUS Performing Organization Address City/[facility] Phone Number [facility] aPTT (04/28/2019 2:12 AM CDT) [facility] APTT Patient 20 (L) 26 - 36 Seconds [facility] Specimen Blood - ARM, RIGHT Performing Organization Address City/[facility] Phone Number [facility] CLIA: [id number], [address] [place] [address] [phone] [facility] PROFILE / HEMOGRAM (04/28/2019 12:59 AM CDT) WBC 9.76 4.30 - 11.10 [facility] 10*3/L SERVICES RBC 2.20 (L) 3.93 - 5.25 [facility] 10*6/L SERVICES HGB 6.7 (L) 11.6 - 15.0 [facility] g/dL SERVICES HCT 21.7 (L) 35.7 - 45.2 % [facility] MCH 30.5 25.9 - 32.8 pg [facility] MCV 98.6 (H) 80.6 - 95.5 fL [facility] MCHC 30.9 (L) 31.6 - 35.1 [facility] g/dL SERVICES PLT 87 (L) 166 - 358 [facility] 10*3/L SERVICES MPV 11.3 9.5 - 12.9 fL [facility] RDW-CV 19.3 (H) 12.0 - 15.5 % [facility] RDW-SD 68.1 (H) 39.0 - 49.9 fL [facility] NRBC x10^3 0.14 10*3/L [facility] NRBC/100 WBC 1.4 0.0 - 10.0 [facility] /100 WBCs SERVICES IPF % 6.7Comment: Platelet 1.3 - 7.7 % [facility] count measured by SERVICES fluorescence method. Specimen Blood - ARM, RIGHT Performing Organization Address City/State/Zipcode Phone Number [facility] CLIA: [id number], [address] [place] [phone] [facility] BASIC METABOLIC PANEL (NA, K, CL, CO2, GLUCOSE, BUN, CREATININE, CA) (2018 12:59 AM CDT) NA 132 (L) 135 - 145 [facility] mmol/L SERVICES K 4.2 3.5 - 5.0 [facility] mmol/L SERVICES CL 99 98 - 108 mmol/L [facility] CO2 TOTAL 27 23 - 31 mmol/L [facility] AGAP 6 2 - 16 [facility] BUN 41 (H) 7 - 23 mg/dL [facility] GLUCOSE 93 70 - 110 mg/dL [facility] CREATININE 2.84 (H) 0.50 - 1.04 [facility] mg/dL SERVICES CALCIUM 7.9 (L) 8.6 - 10.6 [facility] mg/dL SERVICES eGFR Calculation 16.1 mL/min/1.73m2 [facility] (Non- SERVICES [place]ian) eGFR Calculation 19.5 mL/min/1.73m2 [facility] () SERVICES Specimen Blood - ARM, RIGHT Narrative Performed At [facility] Glomerular Filtration Rate (GFR) and Staging [facility] of Kidney Disease* + + + + | GFR (mL/min/1.73 m2)| With Kidney Damage|Without Kidney Damage + + + + |>90|Stage one| Normal + + + + |60-89|Stage two| Decreased GFR + + + + |30-59|Stage three| Stage three + + + + |15-29|Stage four | Stage four + + + + |<15 (or dialysis)|Stage five | Stage five + + + + *Each stage assumes the associated GFR level has been in effect for at least three months.Stages 1 to 5, with or without kidney disease, indicate chronic kidney disease. Notes: Determination of stages one and two (with eGFR >59mL/min/1.73 m2) requires estimation of kidney damage for at least three months as defined by structural or functional abnormalities of the kidney, manifested by either: Pathological abnormalities or Markers of kidney damage (including abnormalities in the composition of the blood or urine or abnormalities in imaging tests). Performing Organization Address City/State/Zipcode Phone Number [facility] CLIA: [id number], [address] [place] [address] [phone] [facility] Electroencephalogram (EEG) - Duration of test: Continuous EEG Monitoring (LTM) ( 04/28/2019) Narrative Performed At [employer] EEG MONITORING SEGMENT #1: Date and Time of Procedure: 04/28/2019, 16:25:48-17:00:59 REPORT TECHNICAL SUMMARY: The EEG was recorded digitally. Electrodes were applied using the International 10/20 System of electrode placement. Eye movements, respiratory excursions and rhythm strip ECG were monitored on separate channels of the ongoing EEG recording. This is a technically limited study due to large amounts of muscle artifacts. There is no occipital dominant rhythm. The background frequency spectrum is wide, consisting primarily of diffuse 1.5-4 Hz, 4-8 Hz, 8-13 Hz, and 13-22 Hz activities. There is no definitive electrographic evidence of drowsiness or sleep seen. Photic stimulation and hyperventilation are not employed as activation technique. No electrographic seizures or epileptiform abnormalities are seen. IMPRESSION: This study is abnormal due to moderate diffuse slowing, suggestive of a moderate diffuse disturbance in cerebral function. No electrographic seizures or epileptiform abnormalities are seen. The fact that there is no definitive electrographic evidence of drowsiness or sleep seen may decrease the diagnostic sensitivity of the test, as some EEG abnormalities are more commonly seen in drowsiness and sleep. I discussed these findings with the neurology team following the patient immediately after I read this segment. Interpreted by Ann Marie Fox MD on 04/28/2019 ---- [employer] EEG MONITORING SEGMENT #2: Date and Time of Procedure: 04/28/2019, 17:00:59- 21:18:25 IMPRESSION: This study is abnormal due to 1. moderate diffuse slowing, suggestive of a moderate diffuse disturbance in cerebral function. 2. intermittent diffuse amplitude suppression suggestive of severe cerebral dysfunction but partly can be explained by sedating medication effects. No electrographic seizures or epileptiform abnormalities are seen. This study is markedly technically limited due to near continuous muscles artifacts. I discussed these findings with the neurology team following the patient immediately after I read this segment. Interpreted by Kelly Roberson MD on 04/28/2019 ---- [employer] EEG MONITORING SEGMENT #2: Date and Time of Procedure: 04/28/2019, 21:18:25 to 04/29/2019 08:08:06 IMPRESSION: This study is abnormal due to 1. moderate diffuse slowing, suggestive of a moderate diffuse disturbance in cerebral function. 2. intermittent diffuse amplitude suppression suggestive of severe cerebral dysfunction but partly can be explained by sedating medication effects. 3. frequent biphasic and triphasic waves, which can be suggestive of a toxic or metabolic encephalopathy, but can also be seen after anoxic brain injury as well as in Alzheimer's disease. No electrographic seizures or epileptiform abnormalities are seen. This study is markedly technically limited due to near continuous muscles artifacts. O1, T5, T6 electrodes artifacts also seen. I discussed these findings with the neurology team following the patient immediately after I read this segment. Interpreted by Kelly Roberson MD on 04/29/2019 ---- [employer] EEG MONITORING SEGMENT #3: Date and Time of Procedure: 04/29/2019 08:08:06 to 12:01:26 IMPRESSION: This study is abnormal due to 1. moderate diffuse slowing, suggestive of a moderate diffuse disturbance in cerebral function. 2. intermittent diffuse amplitude suppression suggestive of severe cerebral dysfunction but partly can be explained by sedating medication effects. 3. frequent biphasic and triphasic waves, which can be suggestive of a toxic or metabolic encephalopathy, but can also be seen after anoxic brain injury as well as in Alzheimer's disease. No electrographic seizures or epileptiform abnormalities are seen. Some portion of studies are un-iterpretable due to muscle artifacts. I discussed these findings with the neurology team following the patient immediately after I read this segment. Interpreted by Kelly Roberson MD on 04/29/2019 ---- CBC WITH DIFFERENTIAL (04/27/2019 6:19 AM CDT) WBC 8.09 4.30 - 11.10 [facility] 10*3/L SERVICES RBC 2.36 (L) 3.93 - 5.25 [facility] 10*6/L SERVICES HGB 7.3 (L) 11.6 - 15.0 [facility] g/dL SERVICES HCT 22.7 (L) 35.7 - 45.2 [facility] % SERVICES MCV 96.2 (H) 80.6 - 95.5 [facility] fL SERVICES MCH 30.9 25.9 - 32.8 [facility] pg SERVICES MCHC 32.2 31.6 - 35.1 [facility] g/dL SERVICES RDW-SD 69.0 (H) 39.0 - 49.9 [facility] fL SERVICES RDW-CV 20.0 (H) 12.0 - 15.5 [facility] % SERVICES PLT 67 (L) 166 - 358 [facility] 10*3/L SERVICES MPV 11.3 9.5 - 12.9 [facility] fL SERVICES IPF % 6.7Comment: 1.3 - 7.7 % [facility] Platelet count SERVICES measured by fluorescence method. NRBC/100 WBC 1.1 0.0 - 10.0 [facility] /100 WBCs SERVICES NRBC x10^3 0.09 10*3/L [facility] GRAN MAT (NEUT) % 76.6 % [facility] IMM GRAN % 0.40 % [facility] LYMPH % 11.7 % [facility] MONO % 11.0 % [facility] EOS % 0.2 % [facility] BASO % 0.1 % [facility] GRAN MAT x10^3(ANC) 6.19 1.88 - 7.09 [facility] 10*3/uL SERVICES IMM GRAN x10^3 0.03 0.00 - 0.06 [facility] 10*3/uL SERVICES LYMPH x10^3 0.95 (L) 1.32 - 3.29 [facility] 10*3/uL SERVICES MONO x10^3 0.89 0.33 - 0.92 [facility] 10*3/uL SERVICES EOS x10^3 <0.03 (L) 0.03 - 0.39 [facility] 10*3/uL SERVICES BASO x10^3 <0.03 0.01 - 0.07 [facility] 10*3/uL SERVICES BASO STIPPLING Present (A) [facility] THERESE CELLS 2+ (A) (none) [facility] POLYCHROMASIA 2+ 2+ [facility] SCHISTOCYTES 1+ (A) [facility] BANDS Increased (A) [facility] Specimen Blood - ARM, RIGHT Performing Organization Address City/State/Zipcode Phone Number [facility] CLIA: [id number], [address] [place] [address] [facility] MAGNESIUM (04/27/2019 6:19 AM CDT) MAGNESIUM 2.6 (H) 1.7 - 2.4 mg/dL [facility] Specimen Blood - ARM, RIGHT Performing Organization Address City/[facility]/Zipcode Phone Number [facility] CLIA: [id number], [address] [place] [phone] [facility] COMP. METABOLIC PANEL (44990) (04/27/2019 6:19 AM CDT) NA 132 (L) 135 - 145 [facility] mmol/L SERVICES K 4.4 3.5 - 5.0 [facility] mmol/L SERVICES CL 100 98 - 108 mmol/L [facility] SERVICES CO2 TOTAL 29 23 - 31 mmol/L [facility] SERVICES AGAP 3 2 - 16 [facility] SERVICES BUN 30 (H) 7 - 23 mg/dL [facility] SERVICES GLUCOSE 99 70 - 110 mg/dL [facility] CREATININE 2.44 (H) 0.50 - 1.04 [facility] mg/dL SERVICES TOTAL BILI 1.6 (H) 0.1 - 1.1 mg/dL [facility] SERVICES CALCIUM 7.9 (L) 8.6 - 10.6 [facility] mg/dL SERVICES T PROTEIN 4.4 (L) 6.3 - 8.2 g/dL [facility] SERVICES ALBUMIN 2.0 (L) 3.5 - 5.0 g/dL [facility] ALK PHOS 48 34 - 122 U/L [facility] ALT(SGPT) 35 9 - 51 U/L [facility] AST(SGOT) 33 13 - 40 U/L [facility] SERVICES eGFR Calculation 19.2 mL/min/1.73m2 [facility] (Non- SERVICES [place]ian) eGFR Calculation 23.2 mL/min/1.73m2 [facility] () SERVICES Specimen Blood - ARM, RIGHT Narrative Performed At [facility] Glomerular Filtration Rate (GFR) and Staging [facility] SERVICES of Kidney Disease* + + + + | GFR (mL/min/1.73 m2)| With Kidney Damage|Without Kidney Damage + + + + |>90|Stage one| Normal + + + + |60-89|Stage two| Decreased GFR + + + + |30-59|Stage three| Stage three + + + + |15-29|Stage four | Stage four + + + + |<15 (or dialysis)|Stage five | Stage five + + + + *Each stage assumes the associated GFR level has been in effect for at least three months.Stages 1 to 5, with or without kidney disease, indicate chronic kidney disease. Notes: Determination of stages one and two (with eGFR >59mL/min/1.73 m2) requires estimation of kidney damage for at least three months as defined by structural or functional abnormalities of the kidney, manifested by either: Pathological abnormalities or Markers of kidney damage (including abnormalities in the composition of the blood or urine or abnormalities in imaging tests). Performing Organization Address City/State/Zipcode Phone Number [facility] CLIA: [id number], [address] [place] [phone] [facility] aPTT (04/27/2019 6:18 AM CDT) APTT Patient 25 (L) 26 - 36 Seconds [facility] Specimen Blood - ARM, RIGHT Performing Organization Address [facility]/Zipcode Phone Number [facility] CLIA: [id number], [address] [place] [address] [phone] [facility] US UPPER ARM RIGHT (04/26/2019 8:36 PM CDT) Specimen Narrative Performed At US UPPER ARM RIGHT PACS/VR/DOSE HISTORY: suspected enlarging hematoma COMPARISON: None available FINDINGS: Focused ultrasound images of the right arm demonstrate soft tissue thickening of the mid and lower arm. A focal ill-defined hypoechoic lesion in the medial aspect of the distal arm measures 0.8 x 1.5 x 1.5 cm. This may represent a hematoma; however, an abscess can have a similar appearance. Jean-Paul Velasquez MD., have reviewed this study and agree with the above report. Procedure Note [facility], Radiant Results Inft User - 04/26/2019 11:54 PM CDT US UPPER ARM RIGHT HISTORY: suspected enlarging hematoma COMPARISON: None available FINDINGS: Focused ultrasound images of the right arm demonstrate soft tissue thickening of the mid and lower arm. A focal ill-defined hypoechoic lesion in the medial aspect of the distal arm measures 0.8 x 1.5 x 1.5 cm. This may represent a hematoma; however, an abscess can have a similar appearance. I, Magda Centeno MD., have reviewed this study and agree with the above report. Performing Organization Address City/State/Zipcode Phone Number PACS/VR/DOSE MAGNESIUM (04/26/2019 5:02 AM CDT) MAGNESIUM 3.1 (H) 1.7 - 2.4 mg/dL [facility] Specimen Blood - ARM, RIGHT Performing Organization Address City/[facility]/Zipcode Phone Number [facility] CLIA: [id number], [address] [place] [address] [phone] [facility] COMP. METABOLIC PANEL ([id number]) (04/26/2019 5:02 AM CDT) NA 130 (L) 135 - 145 [facility] mmol/L SERVICES K 4.7 3.5 - 5.0 [facility] mmol/L SERVICES CL 99 98 - 108 mmol/L [facility] CO2 TOTAL 28 23 - 31 mmol/L [facility] AGAP 3 2 - 16 [facility] BUN 46 (H) 7 - 23 mg/dL [facility] GLUCOSE 101 70 - 110 mg/dL [facility] CREATININE 3.23 (H) 0.50 - 1.04 [facility] mg/dL SERVICES TOTAL BILI 1.7 (H) 0.1 - 1.1 mg/dL [facility] CALCIUM 7.8 (L) 8.6 - 10.6 [facility] mg/dL SERVICES T PROTEIN 4.4 (L) 6.3 - 8.2 g/dL [facility] ALBUMIN 2.1 (L) 3.5 - 5.0 g/dL [facility] ALK PHOS 41 34 - 122 U/L [facility] ALT(SGPT) 32 9 - 51 U/L [facility] AST(SGOT) 36 13 - 40 U/L [facility] eGFR Calculation 13.9 mL/min/1.73m2 [facility] (Non- SERVICES [place]ian) eGFR Calculation 16.8 mL/min/1.73m2 [facility] () SERVICES Specimen Blood - ARM, RIGHT Narrative Performed At Association of Glomerular Filtration Rate (GFR) and Staging [facility] of Kidney Disease* + + + + | GFR (mL/min/1.73 m2)| With Kidney Damage|Without Kidney Damage + + + + |>90|Stage one| Normal + + + + |60-89|Stage two| Decreased GFR + + + + |30-59|Stage three| Stage three + + + + |15-29|Stage four | Stage four + + + + |<15 (or dialysis)|Stage five | Stage five + + + + *Each stage assumes the associated GFR level has been in effect for at least three months.Stages 1 to 5, with or without kidney disease, indicate chronic kidney disease. Notes: Determination of stages one and two (with eGFR >59mL/min/1.73 m2) requires estimation of kidney damage for at least three months as defined by structural or functional abnormalities of the kidney, manifested by either: Pathological abnormalities or Markers of kidney damage (including abnormalities in the composition of the blood or urine or abnormalities in imaging tests). Performing Organization Address City/[facility] Phone Number [facility] CLIA: [id number], [address] [place] [address] [phone] [facility] aPTT (04/26/2019 5:01 AM CDT) APTT Patient 26 26 - 36 Seconds [facility] Specimen Blood - ARM, RIGHT Performing Organization Address [facility] Phone Number [facility] CLIA: [id number], [address] [place] [address] [phone] [facility] CBC WITH DIFFERENTIAL (04/26/2019 5:01 AM CDT) WBC 8.78 4.30 - 11.10 [facility] 10*3/L SERVICES RBC 2.47 (L) 3.93 - 5.25 [facility] 10*6/L SERVICES HGB 7.6 (L) 11.6 - 15.0 [facility] g/dL SERVICES HCT 23.9 (L) 35.7 - 45.2 % [facility] MCV 96.8 (H) 80.6 - 95.5 [facility] fL SERVICES MCH 30.8 25.9 - 32.8 [facility] pg SERVICES MCHC 31.8 31.6 - 35.1 [facility] g/dL SERVICES RDW-SD 67.3 (H) 39.0 - 49.9 [facility] fL SERVICES RDW-CV 20.1 (H) 12.0 - 15.5 % [facility] PLT 70 (L) 166 - 358 [facility] 10*3/L SERVICES MPV 11.9 9.5 - 12.9 fL [facility] IPF % 4.5Comment: Platelet 1.3 - 7.7 % [facility] count measured by SERVICES fluorescence method. NRBC/100 WBC 1.3 0.0 - 10.0 [facility] /100 WBCs SERVICES NRBC x10^3 0.11 10*3/L [facility] GRAN MAT (NEUT) % 81.9 % [facility] IMM GRAN % 0.60 % [facility] LYMPH % 8.4 % [facility] MONO % 9.1 % [facility] EOS % 0.0 % [facility] BASO % 0.0 % [facility] GRAN MAT 7.19 (H) 1.88 - 7.09 [facility] x10^3(ANC) 10*3/uL SERVICES IMM GRAN x10^3 0.05 0.00 - 0.06 [facility] 10*3/uL SERVICES LYMPH x10^3 0.74 (L) 1.32 - 3.29 [facility] 10*3/uL SERVICES MONO x10^3 0.80 0.33 - 0.92 [facility] 10*3/uL SERVICES EOS x10^3 <0.03 (L) 0.03 - 0.39 [facility] 10*3/uL SERVICES BASO x10^3 <0.03 0.01 - 0.07 [facility] 10*3/uL SERVICES Specimen Blood - ARM, RIGHT Performing Organization Address City/State/Zipcode Phone Number [facility] CLIA: [id number], [address] [place] [address] [facility]UM (04/25/2019 5:35 AM CDT) MAGNESIUM 2.8 (H) 1.7 - 2.4 mg/dL [facility] Specimen Blood - ARM, RIGHT Performing Organization Address City/State/Zipcode Phone Number [facility] CLIA: [id number], [address] [place] [address] [facility] COMP. METABOLIC PANEL ([id number]) (04/25/2019 5:35 AM CDT) NA 132 (L) 135 - 145 [facility] mmol/L SERVICES K 4.5 3.5 - 5.0 [facility] mmol/L SERVICES CL 99 98 - 108 mmol/L [facility] CO2 TOTAL 28 23 - 31 mmol/L [facility] AGAP 5 2 - 16 [facility] BUN 38 (H) 7 - 23 mg/dL [facility] GLUCOSE 102 70 - 110 mg/dL [facility] CREATININE 2.90 (H) 0.50 - 1.04 [facility] mg/dL SERVICES TOTAL BILI 1.9 (H) 0.1 - 1.1 mg/dL [facility] CALCIUM 8.1 (L) 8.6 - 10.6 [facility] mg/dL SERVICES T PROTEIN 4.6 (L) 6.3 - 8.2 g/dL [facility] ALBUMIN 2.1 (L) 3.5 - 5.0 g/dL [facility] ALK PHOS 36 34 - 122 U/L [facility] ALT(SGPT) 32 9 - 51 U/L [facility] AST(SGOT) 30 13 - 40 U/L [facility] eGFR Calculation 15.7 mL/min/1.73m2 [facility] (Non- SERVICES [place]ian) eGFR Calculation 19.0 mL/min/1.73m2 [facility] () SERVICES Specimen Blood - ARM, RIGHT Narrative Performed At [facility] Glomerular Filtration Rate (GFR) and Staging [facility] of Kidney Disease* + + + + | GFR (mL/min/1.73 m2)| With Kidney Damage|Without Kidney Damage + + + + |>90|Stage one| Normal + + + + |60-89|Stage two| Decreased GFR + + + + |30-59|Stage three| Stage three + + + + |15-29|Stage four | Stage four + + + + |<15 (or dialysis)|Stage five | Stage five + + + + *Each stage assumes the associated GFR level has been in effect for at least three months.Stages 1 to 5, with or without kidney disease, indicate chronic kidney disease. Notes: Determination of stages one and two (with eGFR >59mL/min/1.73 m2) requires estimation of kidney damage for at least three months as defined by structural or functional abnormalities of the kidney, manifested by either: Pathological abnormalities or Markers of kidney damage (including abnormalities in the composition of the blood or urine or abnormalities in imaging tests). Performing Organization Address City/State/Zipcode Phone Number [facility] CLIA: [id number], [address] [place] [phone] [facility] aPTT (04/25/2019 5:34 AM CDT) APTT Patient 25 (L) 26 - 36 Seconds [facility] Specimen Blood - ARM, LEFT Performing Organization Address [facility] Phone Number [facility] CLIA: [id number], [address] [place] [address] [facility] CBC WITH DIFFERENTIAL (04/25/2019 5:34 AM CDT) WBC 6.81 4.30 - 11.10 [facility] 10*3/L SERVICES RBC 2.69 (L) 3.93 - 5.25 [facility] 10*6/L SERVICES HGB 8.2 (L) 11.6 - 15.0 [facility] g/dL SERVICES HCT 25.6 (L) 35.7 - 45.2 % [facility] MCV 95.2 80.6 - 95.5 [facility] fL SERVICES MCH 30.5 25.9 - 32.8 [facility] pg SERVICES MCHC 32.0 31.6 - 35.1 [facility] g/dL SERVICES RDW-SD 67.6 (H) 39.0 - 49.9 [facility] fL SERVICES RDW-CV 20.7 (H) 12.0 - 15.5 % [facility] PLT 68 (L) 166 - 358 [facility] 10*3/L SERVICES MPV 11.6 9.5 - 12.9 fL [facility] IPF % 5.3Comment: Platelet 1.3 - 7.7 % [facility] count measured by SERVICES fluorescence method. NRBC/100 WBC 5.1 0.0 - 10.0 [facility] /100 WBCs SERVICES NRBC x10^3 0.35 10*3/L [facility] GRAN MAT (NEUT) % 74.1 % [facility] IMM GRAN % 0.90 % [facility] LYMPH % 12.8 % [facility] MONO % 12.0 % [facility] EOS % 0.1 % [facility] BASO % 0.1 % [facility] GRAN MAT 5.04 1.88 - 7.09 [facility] x10^3(ANC) 10*3/uL SERVICES IMM GRAN x10^3 0.06 0.00 - 0.06 [facility] 10*3/uL SERVICES LYMPH x10^3 0.87 (L) 1.32 - 3.29 [facility] 10*3/uL SERVICES MONO x10^3 0.82 0.33 - 0.92 [facility] 10*3/uL SERVICES EOS x10^3 <0.03 (L) 0.03 - 0.39 [facility] 10*3/uL SERVICES BASO x10^3 <0.03 0.01 - 0.07 [facility] 10*3/uL SERVICES Specimen Blood - ARM, LEFT Performing Organization Address City/State/Zipcode Phone Number [facility] CLIA: [id number], [address] [place] [address] [phone] [facility] PROFILE / HEMOGRAM (04/24/2019 9:40 PM CDT) WBC 10.02 4.30 - 11.10 [facility] 10*3/L SERVICES RBC 2.60 (L) 3.93 - 5.25 [facility] 10*6/L SERVICES HGB 7.9 (L) 11.6 - 15.0 [facility] g/dL SERVICES HCT 24.6 (L) 35.7 - 45.2 % [facility] MCH 30.4 25.9 - 32.8 pg [facility] MCV 94.6Comment: post 80.6 - 95.5 fL [facility] transfusion SERVICES MCHC 32.1 31.6 - 35.1 [facility] g/dL SERVICES PLT 63 (L) 166 - 358 [facility] 10*3/L SERVICES MPV 11.3 9.5 - 12.9 fL [facility] SERVICES RDW-CV 20.2 (H) 12.0 - 15.5 % [facility] SERVICES RDW-SD 64.5 (H) 39.0 - 49.9 fL [facility] NRBC x10^3 0.41 10*3/L [facility] NRBC/100 WBC 4.1 0.0 - 10.0 [facility] /100 WBCs SERVICES IPF % 5.0Comment: Platelet 1.3 - 7.7 % [facility] count measured by SERVICES fluorescence method. Specimen Blood - HAND, RIGHT Performing Organization Address City/[facility]/Zipcode Phone Number [facility] CLIA: [id number], [address] [place] [address] [facility] Prepare Packed RBC (in units), 1 Units (04/24/2019 12:59 PM CDT) [facility] Cross Match Result Compatible LAB ISBT Blood Type Code 5100 LAB Unit Blood Type O Pos LAB Unit Number [id number] LAB Blood Expiration Date & LAB Time Status Information Issued LAB Product Identification Red Blood Cells LAB Product Code [id number] LAB Comment: Performed at [facility] Services - [facility] Blood [place] [address] Toll Free: [phone] CLIA No. [id number] Specimen Performing Organization Address [facility] Phone Number [facility] Type and Screen - ONCE HALI (04/24/2019 10:58 AM CDT) [facility] ABO & RH O POSITIVE LAB Comment: Performed at [facility] Services - [place] [address] Toll Free: [phone] CLIA No. [id number] IAT Negative LAB Comment: Performed at [facility] - [place] [address] Toll Free: [phone] CLIA No. [id number] Specimen VENOUS Performing Organization Address City/[facility] Phone Number [facility] BASIC METABOLIC PANEL (NA, K, CL, CO2, GLUCOSE, BUN, CREATININE, CA) (2018 7:18 AM CDT) NA 131 (L) 135 - 145 [facility] mmol/L SERVICES K 4.1 3.5 - 5.0 [facility] mmol/L SERVICES CL 97 (L) 98 - 108 mmol/L [facility] CO2 TOTAL 29 23 - 31 mmol/L [facility] AGAP 5 2 - 16 [facility] BUN 30 (H) 7 - 23 mg/dL [facility] GLUCOSE 98 70 - 110 mg/dL [facility] CREATININE 2.50 (H) 0.50 - 1.04 [facility] mg/dL SERVICES CALCIUM 7.9 (L) 8.6 - 10.6 [facility] mg/dL SERVICES eGFR Calculation 18.6 mL/min/1.73m2 [facility] (Non- SERVICES [place]ian) eGFR Calculation 22.6 mL/min/1.73m2 [facility] () SERVICES Specimen Blood Narrative Performed At [facility] Glomerular Filtration Rate (GFR) and Staging [facility] of Kidney Disease* + + + + | GFR (mL/min/1.73 m2)| With Kidney Damage|Without Kidney Damage + + + + |>90|Stage one| Normal + + + + |60-89|Stage two| Decreased GFR + + + + |30-59|Stage three| Stage three + + + + |15-29|Stage four | Stage four + + + + |<15 (or dialysis)|Stage five | Stage five + + + + *Each stage assumes the associated GFR level has been in effect for at least three months.Stages 1 to 5, with or without kidney disease, indicate chronic kidney disease. Notes: Determination of stages one and two (with eGFR >59mL/min/1.73 m2) requires estimation of kidney damage for at least three months as defined by structural or functional abnormalities of the kidney, manifested by either: Pathological abnormalities or Markers of kidney damage (including abnormalities in the composition of the blood or urine or abnormalities in imaging tests). Performing Organization Address City/State/Zipcode Phone Number [facility] CLIA: [id number], [address] [place] [address] EXTRA TUBE LT. GREEN (04/24/2019 7:18 AM CDT) Specimen Blood Performing Organization Address City/[facility]/Zipcode Phone Number [facility] CLIA: [id number], [address] [place], [place] [address] [facility] aPTT (04/24/2019 7:18 AM CDT) APTT Patient 21 (L) 26 - 36 Seconds [facility] Specimen Blood - ARM, RIGHT Performing Organization Address City/State/Zipcode Phone Number [facility] CLIA: [id number], [address] [place] [address] [facility] CBC WITH DIFFERENTIAL (04/24/2019 7:18 AM CDT) WBC 11.62 (H) 4.30 - 11.10 [facility] 10*3/L SERVICES RBC 1.95 (L) 3.93 - 5.25 [facility] 10*6/L SERVICES HGB 6.4 (L) 11.6 - 15.0 [facility] g/dL SERVICES HCT 19.9 (L) 35.7 - 45.2 % [facility] MCV 102.1 (H) 80.6 - 95.5 [facility] fL SERVICES MCH 32.8 25.9 - 32.8 [facility] pg SERVICES MCHC 32.2 31.6 - 35.1 [facility] g/dL SERVICES RDW-SD 64.7 (H) 39.0 - 49.9 [facility] fL SERVICES RDW-CV 18.1 (H) 12.0 - 15.5 % [facility] PLT 59 (L) 166 - 358 [facility] 10*3/L SERVICES MPV 11.2 9.5 - 12.9 fL [facility] IPF % 7.6Comment: Platelet 1.3 - 7.7 % [facility] count measured by SERVICES fluorescence method. NRBC/100 WBC 1.5 0.0 - 10.0 [facility] /100 WBCs SERVICES NRBC x10^3 0.18 10*3/L [facility] GRAN MAT (NEUT) % 75.0 % [facility] IMM GRAN % 0.70 % [facility] LYMPH % 12.4 % [facility] MONO % 11.7 % [facility] EOS % 0.1 % [facility] BASO % 0.1 % [facility] GRAN MAT 8.72 (H) 1.88 - 7.09 [facility] x10^3(ANC) 10*3/uL SERVICES IMM GRAN x10^3 0.08 (H) 0.00 - 0.06 [facility] 10*3/uL SERVICES LYMPH x10^3 1.44 1.32 - 3.29 [facility] 10*3/uL SERVICES MONO x10^3 1.36 (H) 0.33 - 0.92 [facility] 10*3/uL SERVICES EOS x10^3 <0.03 (L) 0.03 - 0.39 [facility] 10*3/uL SERVICES BASO x10^3 <0.03 0.01 - 0.07 [facility] 10*3/uL SERVICES BASO STIPPLING Present (A) [facility] Specimen Blood - ARM, RIGHT Performing Organization Address City/State/Zipcode Phone Number [facility] CLIA: [id number], [address] [place] [address] [facility] XR KUB (04/23/2019 9:28 PM CDT) Specimen Impressions Performed At Nonobstructive bowel gas pattern. PACS/VR/DOSE Narrative Performed At * * * * * * * * ORIGINAL REPORT * * * * * * * * PACS/VR/DOSE EXAM: XR KUB HISTORY: 78 years-old Female with Abdominal pain COMPARISON: 04/15/2019 multiple abdominal radiographs.. FINDINGS: A Dobbhoff feeding tube is no longer visualized, possibly removed in the interval. Bowel gas pattern is nonobstructive. Calcifications with peripheral sclerosis project over the left hemiabdomen and may be within the abdominal wall. Vascular calcifications are also noted over the abdomen and pelvis. Procedure Note [facility], Radiant Results Inft User - 04/24/2019 8:41 AM CDT * * * * * * * * ORIGINAL REPORT * * * * * * * * EXAM: XR KUB HISTORY: 78 years-old Female with Abdominal pain COMPARISON: 04/15/2019 multiple abdominal radiographs.. FINDINGS: A Dobbhoff feeding tube is no longer visualized, possibly removed in the interval. Bowel gas pattern is nonobstructive. Calcifications with peripheral sclerosis project over the left hemiabdomen and may be within the abdominal wall. Vascular calcifications are also noted over the abdomen and pelvis. IMPRESSION Nonobstructive bowel gas pattern. Performing Organization Address City/State/Zipcode Phone Number PACS/VR/DOSE CBC WITH DIFFERENTIAL (04/23/2019 4:42 AM CDT) WBC 10.72 4.30 - 11.10 [facility] 10*3/L SERVICES RBC 2.10 (L) 3.93 - 5.25 [facility] 10*6/L SERVICES HGB 7.0 (L) 11.6 - 15.0 [facility] g/dL SERVICES HCT 20.9 (L) 35.7 - 45.2 % [facility] SERVICES MCV 99.5 (H) 80.6 - 95.5 [facility] fL SERVICES MCH 33.3 (H) 25.9 - 32.8 [facility] pg SERVICES MCHC 33.5 31.6 - 35.1 [facility] g/dL SERVICES RDW-SD 59.0 (H) 39.0 - 49.9 [facility] fL SERVICES RDW-CV 17.5 (H) 12.0 - 15.5 % [facility] PLT 67 (L) 166 - 358 [facility] 10*3/L SERVICES MPV 11.1 9.5 - 12.9 fL [facility] IPF % 4.4Comment: Platelet 1.3 - 7.7 % [facility] count measured by SERVICES fluorescence method. NRBC/100 WBC 0.7 0.0 - 10.0 [facility] /100 WBCs SERVICES NRBC x10^3 0.07 10*3/L [facility] GRAN MAT (NEUT) % 77.9 % [facility] IMM GRAN % 1.20 % [facility] LYMPH % 12.7 % [facility] MONO % 8.0 % [facility] EOS % 0.1 % [facility] BASO % 0.1 % [facility] GRAN MAT 8.35 (H) 1.88 - 7.09 [facility] x10^3(ANC) 10*3/uL SERVICES IMM GRAN x10^3 0.13 (H) 0.00 - 0.06 [facility] 10*3/uL SERVICES LYMPH x10^3 1.36 1.32 - 3.29 [facility] 10*3/uL SERVICES MONO x10^3 0.86 0.33 - 0.92 [facility] 10*3/uL SERVICES EOS x10^3 <0.03 (L) 0.03 - 0.39 [facility] 10*3/uL SERVICES BASO x10^3 <0.03 0.01 - 0.07 [facility] 10*3/uL SERVICES BASO STIPPLING Present (A) [facility] Specimen Blood - VENOUS Performing Organization Address City/[facility]/Zipcode Phone Number [facility] CLIA: [id number], [address] [place] [address] [facility] aPTT (04/23/2019 4:41 AM CDT) APTT Patient 28 26 - 36 Seconds [facility] Specimen Blood - VENOUS Performing Organization Address City/[facility]/Zipcode Phone Number [facility] CLIA: [id number], [address] [place] [address] [facility] MAGNESIUM (04/23/2019 4:41 AM CDT) MAGNESIUM 2.1 1.7 - 2.4 mg/dL [facility] Specimen Blood - VENOUS Performing Organization Address City/[facility] Phone Number [facility] CLIA: [id number], [address] [place] [address] [phone] [facility] BASIC METABOLIC PANEL (NA, K, CL, CO2, GLUCOSE, BUN, CREATININE, CA) (2018 4:41 AM CDT) NA 128 (L) 135 - 145 [facility] mmol/L SERVICES K 4.7 3.5 - 5.0 [facility] mmol/L SERVICES CL 98 98 - 108 mmol/L [facility] SERVICES CO2 TOTAL 28 23 - 31 mmol/L [facility] SERVICES AGAP 2 2 - 16 [facility] BUN 50 (H) 7 - 23 mg/dL [facility] GLUCOSE 103 70 - 110 mg/dL [facility] CREATININE 3.44 (H) 0.50 - 1.04 [facility] mg/dL SERVICES CALCIUM 7.8 (L) 8.6 - 10.6 [facility] mg/dL SERVICES eGFR Calculation 12.9 mL/min/1.73m2 [facility] (Non- SERVICES Jordanian) eGFR Calculation 15.6 mL/min/1.73m2 [facility] () SERVICES Specimen Blood - VENOUS Narrative Performed At Association of Glomerular Filtration Rate (GFR) and Staging [facility] of Kidney Disease* + + + + | GFR (mL/min/1.73 m2)| With Kidney Damage|Without Kidney Damage + + + + |>90|Stage one| Normal + + + + |60-89|Stage two| Decreased GFR + + + + |30-59|Stage three| Stage three + + + + |15-29|Stage four | Stage four + + + + |<15 (or dialysis)|Stage five | Stage five + + + + *Each stage assumes the associated GFR level has been in effect for at least three months.Stages 1 to 5, with or without kidney disease, indicate chronic kidney disease. Notes: Determination of stages one and two (with eGFR >59mL/min/1.73 m2) requires estimation of kidney damage for at least three months as defined by structural or functional abnormalities of the kidney, manifested by either: Pathological abnormalities or Markers of kidney damage (including abnormalities in the composition of the blood or urine or abnormalities in imaging tests). Performing Organization Address City/[facility] Phone Number [facility] CLIA: [id number], [address] [place] [address] [phone] [facility] AST, SGOT (ASPARTATE AMINO TRANSFER) (04/23/2019 4:41 AM CDT) AST(SGOT) 23 13 - 40 U/L [facility] Specimen Blood - VENOUS Performing Organization Address [facility] Phone Number [facility] CLIA: [id number], [address] [place] [address] [phone] [facility] ALT, ALANINE AMINO TRANSFERASE(SGPT (04/23/2019 4:41 AM CDT) ALT(SGPT) 32 9 - 51 U/L [facility] Specimen Blood - VENOUS Performing Organization Address [facility] Phone Number [facility] CLIA: [id number], [address] [place] [address] [facility] CBC WITH DIFFERENTIAL (04/22/2019 4:06 PM CDT) WBC 11.40 (H) 4.30 - 11.10 [facility] 10*3/L SERVICES RBC 2.15 (L) 3.93 - 5.25 [facility] 10*6/L SERVICES HGB 7.0 (L) 11.6 - 15.0 [facility] g/dL SERVICES HCT 21.3 (L) 35.7 - 45.2 [facility] % SERVICES MCV 99.1 (H) 80.6 - 95.5 [facility] fL SERVICES MCH 32.6 25.9 - 32.8 [facility] pg SERVICES MCHC 32.9 31.6 - 35.1 [facility] g/dL SERVICES RDW-SD 59.5 (H) 39.0 - 49.9 [facility] fL SERVICES RDW-CV 17.3 (H) 12.0 - 15.5 [facility] % SERVICES PLT 58 (L) 166 - 358 [facility] 10*3/L SERVICES MPV 11.7 9.5 - 12.9 [facility] fL SERVICES IPF % 6.0Comment: 1.3 - 7.7 % [facility] Platelet count SERVICES measured by fluorescence method. NRBC/100 WBC 1.0 0.0 - 10.0 [facility] /100 WBCs SERVICES NRBC x10^3 0.11 10*3/L [facility] GRAN MAT (NEUT) % 78.8 % [facility] IMM GRAN % 1.10 % [facility] LYMPH % 10.2 % [facility] MONO % 9.8 % [facility] EOS % 0.1 % [facility] BASO % 0.0 % [facility] GRAN MAT x10^3(ANC) 8.99 (H) 1.88 - 7.09 [facility] 10*3/uL SERVICES IMM GRAN x10^3 0.12 (H) 0.00 - 0.06 [facility] 10*3/uL SERVICES LYMPH x10^3 1.16 (L) 1.32 - 3.29 [facility] 10*3/uL SERVICES MONO x10^3 1.12 (H) 0.33 - 0.92 [facility] 10*3/uL SERVICES EOS x10^3 <0.03 (L) 0.03 - 0.39 [facility] 10*3/uL SERVICES BASO x10^3 <0.03 0.01 - 0.07 [facility] 10*3/uL SERVICES BASO STIPPLING Present (A) [facility] POLYCHROMASIA 2+ 2+ [facility] Specimen Blood - ARM, RIGHT Performing Organization Address City/[facility]/Zipcode Phone Number [facility] CLIA: [id number], [address] [place] [address] [facility] aPTT (04/22/2019 12:16 PM CDT) APTT Patient 39 (H) 26 - 36 Seconds [facility] Specimen Blood - ARM, RIGHT Performing Organization Address [facility]/Zipcode Phone Number [facility] CLIA: [id number], [address] [place] [address] [phone] [facility] CT CHEST PULMONARY ANGIOGRAM (04/22/2019 10:58 AM CDT) Specimen Impressions Performed At PACS/VR/DOSE 1. No pulmonary embolism. 2. Acute to subacute mild compression deformity of the L1 vertebral body. Jean-Paul Velasquez MD., have reviewed this study and agree with the above report. Narrative Performed At PROCEDURE: CT ANGIO CHEST WITH CONTRAST - PE PROTOCOL PACS/VR/DOSE CLINICAL INDICATION: PE suspected, high pretest prob COMPARISON:None. TECHNIQUE:Helical CT was performed and reconstructed at 1.25 mm slice thickness from lung bases to apices using 80 cc Omnipaque intravenous contrast. MIP and coronal and sagittal reconstructions were obtained. FINDINGS: PULMONARY ARTERIES: Enhancement is satisfactory and there is no acute or chronic pulmonary embolism. CHEST: Lower neck/thyroid: Unremarkable. Lungs: Normal. Central airway: Unremarkable. Pleura: No pleural effusion, thickening or pneumothorax. Thoracic aorta and great vessels:Normal in diameter. Heart and pericardium: No detectable coronary arterial calcification. Unremarkable cardiac morphology and pericardium. Lymph nodes: No enlarged thoracic lymph nodes. Mediastinum: Unremarkable. Thoracic spine and chest wall: A mild compression deformity of the L1 vertebral body results in approximately 20% vertebral body height loss. Multiple fracture lines are seen through the vertebral body. Other Lines/Tubes/Devices/Hardware: Right internal jugular line terminates in the SVC. Visualized upper abdomen: Unremarkable. Procedure Note [facility], Radiant Results Inft User - 04/22/2019 11:52 AM CDT PROCEDURE: CT ANGIO CHEST WITH CONTRAST - PE PROTOCOL CLINICAL INDICATION: PE suspected, high pretest prob COMPARISON: None. TECHNIQUE: Helical CT was performed and reconstructed at 1.25 mm slice thickness from lung bases to apices using 80 cc Omnipaque intravenous contrast. MIP and coronal and sagittal reconstructions were obtained. FINDINGS: PULMONARY ARTERIES: Enhancement is satisfactory and there is no acute or chronic pulmonary embolism. CHEST: Lower neck/thyroid: Unremarkable. Lungs: Normal. Central airway: Unremarkable. Pleura: No pleural effusion, thickening or pneumothorax. Thoracic aorta and great vessels: Normal in diameter. Heart and pericardium: No detectable coronary arterial calcification. Unremarkable cardiac morphology and pericardium. Lymph nodes: No enlarged thoracic lymph nodes. Mediastinum: Unremarkable. Thoracic spine and chest wall: A mild compression deformity of the L1 vertebral body results in approximately 20% vertebral body height loss. Multiple fracture lines are seen through the vertebral body. Other Lines/Tubes/Devices/Hardware: Right internal jugular line terminates in the SVC. Visualized upper abdomen: Unremarkable. IMPRESSION 1. No pulmonary embolism. 2. Acute to subacute mild compression deformity of the L1 vertebral body. IMagda MD., have reviewed this study and agree with the above report. Performing Organization Address City/[facility]/Zipcode Phone Number PACS/VR/DOSE aPTT (04/22/2019 6:12 AM CDT) APTT Patient 36 26 - 36 Seconds [facility] Specimen Blood - VENOUS Performing Organization Address City/State/Zipcode Phone Number [facility] CLIA: [id number], [address] [place], [place] [address] [facility] TROPONIN I (04/22/2019 6:12 AM CDT) TROPONIN I 0.051 (H) <=0.034 ng/mL [facility] Specimen Blood - VENOUS Narrative Performed At Equal or Less than 0.034 ng/ml---Normal [facility] Note: Cardiac troponin begins to rise 3-4 hours after the onset of ischemia. Repeat in 4-6 hours if the sample was drawn within 3-4 hours of the onset of the symptom and found normal. Between 0.035 and 0.120 ng/mL--- Borderline. Questionable myocardial injury or necrosis Note: Serial measurement may be necessary to confirm or exclude the diagnosis of myocardial injury or necrosis; Clinical correlation (symptoms, EKGs, imaging studies, and others) required; Repeat in 4-6 hours if clinically indicated. Equal or Higher than 0.121 ng/mL---Abnormal. Myocardial Injury or Necrosis Likely Biotin has been reported to cause a negative bias, interpret results relative to patient's use of biotin. Performing Organization Address [facility] Phone Number [facility] CLIA: [id number], [address] [place] [phone] [facility] PROTHROMBIN TIME / INR (04/22/2019 12:21 AM CDT) PROTIME PATIENT 13.6 (H) 10.1 - 12.6 [facility] Seconds SERVICES INR 1.2Comment: Normal [facility] INR <1.1; Warfarin SERVICES Therapeutic range 2.0 to 3.0 or 2.5 to 3.5, depending upon the indications. Specimen Blood - VENOUS Performing Organization Address [facility] Phone Number [facility] CLIA: [id number], [address] [place] [address] [phone] [facility] FIBRINOGEN (04/22/2019 12:21 AM CDT) Pathologist [facility] Fibrinogen 161 (L) 167 - 453 mg/dL [facility] Specimen Blood - VENOUS Performing Organization Address [facility] Phone Number [facility] CLIA: [id number], [address] [place] [phone] [facility] aPTT (04/22/2019 12:21 AM CDT) Pathologist [facility] APTT Patient 38 (H) 26 - 36 Seconds [facility] Specimen Blood - VENOUS Performing Organization Address [facility] Phone Number [facility] CLIA: [id number], [address] [place] [phone] [facility] CBC WITH DIFFERENTIAL (04/22/2019 12:21 AM CDT) WBC 12.48 (H) 4.30 - 11.10 [facility] 10*3/L SERVICES RBC 2.30 (L) 3.93 - 5.25 [facility] 10*6/L SERVICES HGB 7.6 (L) 11.6 - 15.0 [facility] g/dL SERVICES HCT 22.5 (L) 35.7 - 45.2 [facility] % SERVICES MCV 97.8 (H) 80.6 - 95.5 [facility] fL SERVICES MCH 33.0 (H) 25.9 - 32.8 [facility] pg SERVICES MCHC 33.8 31.6 - 35.1 [facility] g/dL SERVICES RDW-SD 57.6 (H) 39.0 - 49.9 [facility] fL SERVICES RDW-CV 17.0 (H) 12.0 - 15.5 [facility] % SERVICES PLT 51 (L) 166 - 358 [facility] 10*3/L SERVICES MPV 11.9 9.5 - 12.9 [facility] fL SERVICES IPF % 5.1Comment: 1.3 - 7.7 % [facility] Platelet count SERVICES measured by fluorescence method. NRBC/100 WBC 2.6 0.0 - 10.0 [facility] /100 WBCs SERVICES NRBC x10^3 0.33 10*3/L [facility] GRAN MAT (NEUT) % 63.3 % [facility] SERVICES IMM GRAN % 1.50 % [facility] LYMPH % 17.9 % [facility] MONO % 13.9 % [facility] SERVICES EOS % 3.3 % [facility] BASO % 0.1 % [facility] SERVICES GRAN MAT x10^3(ANC) 7.90 (H) 1.88 - 7.09 [facility] 10*3/uL SERVICES IMM GRAN x10^3 0.19 (H) 0.00 - 0.06 [facility] 10*3/uL SERVICES LYMPH x10^3 2.24 1.32 - 3.29 [facility] 10*3/uL SERVICES MONO x10^3 1.73 (H) 0.33 - 0.92 [facility] 10*3/uL SERVICES EOS x10^3 0.41 (H) 0.03 - 0.39 [facility] 10*3/uL SERVICES BASO x10^3 <0.03 0.01 - 0.07 [facility] 10*3/uL SERVICES BASO STIPPLING Present (A) [facility] POLYCHROMASIA 2+ 2+ [facility] SCHISTOCYTES 1+ (A) [facility] TARGET CELLS 2+ (A) (none) [facility] Specimen Blood - VENOUS Performing Organization Address City/[facility] Phone Number [facility] CLIA: [id number], [address] [place] [phone] [facility] OSMOLALITY SERUM (04/22/2019 12:21 AM CDT) OSMOLALITY 282 278 - 305 mOsm/kg [facility] Specimen Blood - VENOUS Performing Organization Address [facility] Phone Number [facility] CLIA: [id number], [address] [place] [address] [phone] [facility] TROPONIN I (04/22/2019 12:21 AM CDT) TROPONIN I 0.055 (H) <=0.034 ng/mL [facility] Specimen Blood - VENOUS Narrative Performed At Equal or Less than 0.034 ng/ml---Normal [facility] Note: Cardiac troponin begins to rise 3-4 hours after the onset of ischemia. Repeat in 4-6 hours if the sample was drawn within 3-4 hours of the onset of the symptom and found normal. Between 0.035 and 0.120 ng/mL--- Borderline. Questionable myocardial injury or necrosis Note: Serial measurement may be necessary to confirm or exclude the diagnosis of myocardial injury or necrosis; Clinical correlation (symptoms, EKGs, imaging studies, and others) required; Repeat in 4-6 hours if clinically indicated. Equal or Higher than 0.121 ng/mL---Abnormal. Myocardial Injury or Necrosis Likely Biotin has been reported to cause a negative bias, interpret results relative to patient's use of biotin. Performing Organization Address City/[facility] Phone Number [facility] CLIA: [id number], [address] [place] [phone] [facility] MAGNESIUM (04/22/2019 12:21 AM CDT) MAGNESIUM 1.9 1.7 - 2.4 mg/dL [facility] Specimen Blood - VENOUS Performing Organization Address City/State/Zipcode Phone Number [facility] CLIA: [id number], [address] [place] [address] [phone] [facility] BASIC METABOLIC PANEL (NA, K, CL, CO2, GLUCOSE, BUN, CREATININE, CA) (2018 12:21 AM CDT) NA 129 (L) 135 - 145 [facility] mmol/L SERVICES K 4.4 3.5 - 5.0 [facility] mmol/L SERVICES CL 96 (L) 98 - 108 mmol/L [facility] CO2 TOTAL 29 23 - 31 mmol/L [facility] AGAP 4 2 - 16 [facility] BUN 41 (H) 7 - 23 mg/dL [facility] GLUCOSE 77 70 - 110 mg/dL [facility] CREATININE 3.06 (H) 0.50 - 1.04 [facility] mg/dL SERVICES CALCIUM 7.5 (L) 8.6 - 10.6 [facility] mg/dL SERVICES eGFR Calculation 14.8 mL/min/1.73m2 [facility] (Non- SERVICES Jordanian) eGFR Calculation 17.9 mL/min/1.73m2 [facility] () SERVICES Specimen Blood - VENOUS Narrative Performed At Association of Glomerular Filtration Rate (GFR) and Staging [facility] of Kidney Disease* + + + + | GFR (mL/min/1.73 m2)| With Kidney Damage|Without Kidney Damage + + + + |>90|Stage one| Normal + + + + |60-89|Stage two| Decreased GFR + + + + |30-59|Stage three| Stage three + + + + |15-29|Stage four | Stage four + + + + |<15 (or dialysis)|Stage five | Stage five + + + + *Each stage assumes the associated GFR level has been in effect for at least three months.Stages 1 to 5, with or without kidney disease, indicate chronic kidney disease. Notes: Determination of stages one and two (with eGFR >59mL/min/1.73 m2) requires estimation of kidney damage for at least three months as defined by structural or functional abnormalities of the kidney, manifested by either: Pathological abnormalities or Markers of kidney damage (including abnormalities in the composition of the blood or urine or abnormalities in imaging tests). Performing Organization Address City/State/Zipcode Phone Number [facility] CLIA: [id number], [address] [place] [phone] [facility] AST, SGOT (ASPARTATE AMINO TRANSFER) (04/22/2019 12:21 AM CDT) AST(SGOT) 25 13 - 40 U/L [facility] Specimen Blood - VENOUS Performing Organization Address City/[facility] Phone Number [facility] CLIA: [id number], [address] [place] [address] [facility] ALT, ALANINE AMINO TRANSFERASE(SGPT (04/22/2019 12:21 AM CDT) ALT(SGPT) 34 9 - 51 U/L [facility] Specimen Blood - VENOUS Performing Organization Address [facility] Phone Number [facility] CLIA: [id number], [address] [place] [address] [phone] [facility] Prepare Packed RBC (in units), 2 Units (04/22/2019 12:15 AM CDT) Cross Match Result Compatible LAB ISBT Blood Type Code 5100 LAB Unit Blood Type O Pos LAB Unit Number [id number] LAB Blood Expiration Date & LAB Time Status Information Released LAB Product Identification Red Blood Cells LAB Product Code [id number] LAB Comment: Performed at [facility] Laboratory [facility] Blood Bank [address] [place] [address] Toll Free: CLIA No. [id number] Cross Match Result Compatible LAB ISBT Blood Type Code 5100 LAB Unit Blood Type O Pos LAB Unit Number [id number] LAB Blood Expiration Date & LAB Time Status Information Issued LAB Product Identification Red Blood Cells LAB Product Code [id number] LAB Comment: Performed at [facility] Laboratory Services - [facility] Blood Bank [address] [place], [place] [phone] Toll Free: CLIA No. [id number] Specimen Performing Organization Address City/[facility] Phone Number [facility] POCT GLUCOSE (AUTOMATED) (04/21/2019 8:10 PM CDT) Pathologist [facility] POCT GLU 81 70 - 110 mg/dL [facility] Specimen Blood Performing Organization Address City/State/Zipcode Phone Number [facility] CLIA: [id number], [address] [place] [phone] [facility] TROPONIN I (04/21/2019 3:51 PM CDT) Pathologist [facility] TROPONIN I 0.055 (H) <=0.034 ng/mL [facility] Specimen Blood - LINE, VENOUS Narrative Performed At Equal or Less than 0.034 ng/ml---Normal [facility] Note: Cardiac troponin begins to rise 3-4 hours after the onset of ischemia. Repeat in 4-6 hours if the sample was drawn within 3-4 hours of the onset of the symptom and found normal. Between 0.035 and 0.120 ng/mL--- Borderline. Questionable myocardial injury or necrosis Note: Serial measurement may be necessary to confirm or exclude the diagnosis of myocardial injury or necrosis; Clinical correlation (symptoms, EKGs, imaging studies, and others) required; Repeat in 4-6 hours if clinically indicated. Equal or Higher than 0.121 ng/mL---Abnormal. Myocardial Injury or Necrosis Likely Biotin has been reported to cause a negative bias, interpret results relative to patient's use of biotin. Performing Organization Address City/State/Zipcode Phone Number [facility] CLIA: [id number], [address] [place] [phone] [facility] BASIC METABOLIC PANEL (NA, K, CL, CO2, GLUCOSE, BUN, CREATININE, CA) (2018 3:51 PM CDT) Pathologist [facility] NA 129 (L) 135 - 145 [facility] mmol/L SERVICES K 4.2 3.5 - 5.0 [facility] mmol/L SERVICES CL 97 (L) 98 - 108 mmol/L [facility] SERVICES CO2 TOTAL 28 23 - 31 mmol/L [facility] SERVICES AGAP 4 2 - 16 [facility] SERVICES BUN 40 (H) 7 - 23 mg/dL [facility] SERVICES GLUCOSE 84 70 - 110 mg/dL [facility] SERVICES CREATININE 2.73 (H) 0.50 - 1.04 [facility] mg/dL SERVICES CALCIUM 7.7 (L) 8.6 - 10.6 [facility] mg/dL SERVICES eGFR Calculation 16.8 mL/min/1.73m2 [facility] (Non- SERVICES [place]ian) eGFR Calculation 20.4 mL/min/1.73m2 [facility] () SERVICES Specimen Blood - LINE, VENOUS Narrative Performed At Association of Glomerular Filtration Rate (GFR) and Staging [facility] SERVICES of Kidney Disease* + + + + | GFR (mL/min/1.73 m2)| With Kidney Damage|Without Kidney Damage + + + + |>90|Stage one| Normal + + + + |60-89|Stage two| Decreased GFR + + + + |30-59|Stage three| Stage three + + + + |15-29|Stage four | Stage four + + + + |<15 (or dialysis)|Stage five | Stage five + + + + *Each stage assumes the associated GFR level has been in effect for at least three months.Stages 1 to 5, with or without kidney disease, indicate chronic kidney disease. Notes: Determination of stages one and two (with eGFR >59mL/min/1.73 m2) requires estimation of kidney damage for at least three months as defined by structural or functional abnormalities of the kidney, manifested by either: Pathological abnormalities or Markers of kidney damage (including abnormalities in the composition of the blood or urine or abnormalities in imaging tests). Performing Organization Address City/[facility] Phone Number [facility] CLIA: [id number], [address] [place] [address] [phone] [facility] HEMOGLOBIN (04/21/2019 3:51 PM CDT) [facility] HGB 8.5 (L) 11.6 - 15.0 g/dL [facility] Specimen Blood - LINE, VENOUS Performing Organization Address [facility] Phone Number [facility] CLIA: [id number], [address] [place] [phone] [facility] MRSA / MSSA Screen by PCR, Nares (04/21/2019 3:13 PM CDT) [facility] MRSA Screen by PCR, Negative Negative [facility] Nares SERVICES MSSA Screen by PCR, Negative Negative [facility] Nares SERVICES MRSA/MSSA Positive? No No [facility] SERVICES Specimen Swab - NARES, BOTH SIDES Performing Organization Address [facility] [facility] Phone Number [facility] CLIA: [id number], [address] [place] [phone] [facility] BLOOD CULTURE SCREEN (04/21/2019 3:04 PM CDT) Blood No organisms isolated No growth [facility] Culture-Aerobic Comment: SERVICES Previous preliminary verified result was Culture In Progress on 04/21/2019 at 1904 CDT Previous preliminary verified result was No growth at 24 hours on 04/22/2019 at 1601 CDT Previous preliminary verified result was No growth at 48 hours on 04/23/2019 at 1602 CDT Previous preliminary verified result was No growth at 72 hours on 04/24/2019 at 1602 CDT Blood No organisms isolated No growth [facility] Culture-Anaerobic Comment: SERVICES Previous preliminary verified result was Culture In Progress on 04/21/2019 at 1904 CDT Previous preliminary verified result was No growth at 24 hours on 04/22/2019 at 1601 CDT Previous preliminary verified result was No growth at 48 hours on 04/23/2019 at 1602 CDT Previous preliminary verified result was No growth at 72 hours on 04/24/2019 at 1602 CDT Specimen Blood - VENOUS Performing Organization Address [facility] Phone Number [facility] CLIA: [id number], [address] [place] [phone] [facility] BLOOD CULTURE SCREEN (04/21/2019 3:04 PM CDT) Blood No organisms isolated No growth [facility] Culture-Aerobic Comment: SERVICES Previous preliminary verified result was Culture In Progress on 04/21/2019 at 1904 CDT Previous preliminary verified result was No growth at 24 hours on 04/22/2019 at 1601 CDT Previous preliminary verified result was No growth at 48 hours on 04/23/2019 at 1602 CDT Previous preliminary verified result was No growth at 72 hours on 04/24/2019 at 1602 CDT Blood No organisms isolated No growth [facility] Culture-Anaerobic Comment: SERVICES Previous preliminary verified result was Culture In Progress on 04/21/2019 at 1904 CDT Previous preliminary verified result was No growth at 24 hours on 04/22/2019 at 1601 CDT Previous preliminary verified result was No growth at 48 hours on 04/23/2019 at 1602 CDT Previous preliminary verified result was No growth at 72 hours on 04/24/2019 at 1602 CDT Specimen Blood - VENOUS Performing Organization Address City/[facility] Phone Number [facility] CLIA: [id number], [address] [place] [address] [facility] AC PANEL 20 + LACTIC ACID (04/21/2019 2:45 PM CDT) PH 7.35 7.35 - 7.45 [facility] PCO2 49 (H) 35 - 45 mmHg [facility] PO2 162 (H) 80 - 100 mmHg [facility] HCO3 27 (H) 22 - 26 mEq/L [facility] BE 0.7 -3.0 - 3.0 mEq/L [facility] THB 9.6 (L) 12.0 - 16.0 g/dL [facility] %O2HB 96.8 94.0 - 99.0 % [facility] %COHB ART 1.5 0.0 - 1.5 % [facility] %METHB ART 0.2 (L) 0.4 - 1.5 % [facility] VOL%O2 ART 13.4 (L) 15.0 - 23.0 % [facility] NA 115 (LL) 135 - 145 mmol/L [facility] K+ 4.2 3.5 - 5.0 mmol/L [facility] AC CA IONZ 4.50 4.50 - 5.30 mg/dL [facility] GLUCOSE 105 70 - 110 mg/dL [facility] LACTIC ACID 1.29 0.50 - 2.20 mmol/L [facility] Specimen Blood - ARTERIAL Performing Organization Address City/State/Zipcode Phone Number [facility] CLIA: [id number], [address] [place] [phone] [facility] TROPONIN I (04/21/2019 12:00 PM CDT) TROPONIN I 0.055 (H) <=0.034 ng/mL [facility] Specimen Blood - LINE, VENOUS Narrative Performed At Equal or Less than 0.034 ng/ml---Normal [facility] Note: Cardiac troponin begins to rise 3-4 hours after the onset of ischemia. Repeat in 4-6 hours if the sample was drawn within 3-4 hours of the onset of the symptom and found normal. Between 0.035 and 0.120 ng/mL--- Borderline. Questionable myocardial injury or necrosis Note: Serial measurement may be necessary to confirm or exclude the diagnosis of myocardial injury or necrosis; Clinical correlation (symptoms, EKGs, imaging studies, and others) required; Repeat in 4-6 hours if clinically indicated. Equal or Higher than 0.121 ng/mL---Abnormal. Myocardial Injury or Necrosis Likely Biotin has been reported to cause a negative bias, interpret results relative to patient's use of biotin. Performing Organization Address City/[facility]/Zipcode Phone Number [facility] CLIA: [id number], [address] [place] [phone] [facility] aPTT (04/21/2019 12:00 PM CDT) APTT Patient 30 26 - 36 Seconds [facility] Specimen Blood - LINE, VENOUS Performing Organization Address City/[facility]/Zipcode Phone Number [facility] CLIA: [id number], [address] [place] [phone] [facility] XR SHOULDER 2+ VW RIGHT (04/21/2019 11:44 AM CDT) Specimen Impressions Performed At PACS/VR/DOSE No acute bony abnormality. Mild soft tissue swelling. Punctate densities in the proximal posterior forearm soft tissues may represent soft tissue calcifications or foreign bodies. Elbow joint effusion. In the setting of trauma, an effusion may indicate occult fracture or internal derangement. Elbow and shoulder osteoarthrosis. Narrative Performed At * * * * * * * * ORIGINAL REPORT * * * * * * * * PACS/VR/DOSE EXAM: XR HUMERUS 2 VW RIGHT, EXAM: XR ELBOW <3 VW RIGHT, EXAM: XR SHOULDER 2+ VW RIGHT HISTORY: right arm deformity COMPARISON: None. FINDINGS: Imaging of the right shoulder, humerus and elbow was obtained. Diffuse soft tissue swelling and osteopenia are noted. A peripheral IV is seen at the level of the elbow. No acute fracture or dislocation is seen. An elbow joint effusion is present. Degenerative changes are seen at the shoulder and elbow. Punctate densities are seen in the proximal posterior forearm soft tissues. A right IJ approach catheter is partially visualized. Procedure Note [facility], Radiant Results Inft User - 04/21/2019 2:23 PM CDT * * * * * * * * ORIGINAL REPORT * * * * * * * * EXAM: XR HUMERUS 2 VW RIGHT, EXAM: XR ELBOW <3 VW RIGHT, EXAM: XR SHOULDER 2+ VW RIGHT HISTORY: right arm deformity COMPARISON: None. FINDINGS: Imaging of the right shoulder, humerus and elbow was obtained. Diffuse soft tissue swelling and osteopenia are noted. A peripheral IV is seen at the level of the elbow. No acute fracture or dislocation is seen. An elbow joint effusion is present. Degenerative changes are seen at the shoulder and elbow. Punctate densities are seen in the proximal posterior forearm soft tissues. A right IJ approach catheter is partially visualized. IMPRESSION No acute bony abnormality. Mild soft tissue swelling. Punctate densities in the proximal posterior forearm soft tissues may represent soft tissue calcifications or foreign bodies. Elbow joint effusion. In the setting of trauma, an effusion may indicate occult fracture or internal derangement. Elbow and shoulder osteoarthrosis. Performing Organization Address City/State/[facility] Phone Number PACS/VR/DOSE XR ELBOW <3 VW RIGHT (04/21/2019 11:44 AM CDT) Specimen Impressions Performed At PACS/VR/DOSE No acute bony abnormality. Mild soft tissue swelling. Punctate densities in the proximal posterior forearm soft tissues may represent soft tissue calcifications or foreign bodies. Elbow joint effusion. In the setting of trauma, an effusion may indicate occult fracture or internal derangement. Elbow and shoulder osteoarthrosis. Narrative Performed At * * * * * * * * ORIGINAL REPORT * * * * * * * * PACS/VR/DOSE EXAM: XR HUMERUS 2 VW RIGHT, EXAM: XR ELBOW <3 VW RIGHT, EXAM: XR SHOULDER 2+ VW RIGHT HISTORY: right arm deformity COMPARISON: None. FINDINGS: Imaging of the right shoulder, humerus and elbow was obtained. Diffuse soft tissue swelling and osteopenia are noted. A peripheral IV is seen at the level of the elbow. No acute fracture or dislocation is seen. An elbow joint effusion is present. Degenerative changes are seen at the shoulder and elbow. Punctate densities are seen in the proximal posterior forearm soft tissues. A right IJ approach catheter is partially visualized. Procedure Note [facility], Radiant Results Inft User - 04/21/2019 2:23 PM CDT * * * * * * * * ORIGINAL REPORT * * * * * * * * EXAM: XR HUMERUS 2 VW RIGHT, EXAM: XR ELBOW <3 VW RIGHT, EXAM: XR SHOULDER 2+ VW RIGHT HISTORY: right arm deformity COMPARISON: None. FINDINGS: Imaging of the right shoulder, humerus and elbow was obtained. Diffuse soft tissue swelling and osteopenia are noted. A peripheral IV is seen at the level of the elbow. No acute fracture or dislocation is seen. An elbow joint effusion is present. Degenerative changes are seen at the shoulder and elbow. Punctate densities are seen in the proximal posterior forearm soft tissues. A right IJ approach catheter is partially visualized. IMPRESSION No acute bony abnormality. Mild soft tissue swelling. Punctate densities in the proximal posterior forearm soft tissues may represent soft tissue calcifications or foreign bodies. Elbow joint effusion. In the setting of trauma, an effusion may indicate occult fracture or internal derangement. Elbow and shoulder osteoarthrosis. Performing Organization Address City/State/Zipcode Phone Number PACS/VR/DOSE XR HUMERUS 2 VW RIGHT (04/21/2019 11:44 AM CDT) Specimen Impressions Performed At [facility]/VR/DOSE No acute bony abnormality. Mild soft tissue swelling. Punctate densities in the proximal posterior forearm soft tissues may represent soft tissue calcifications or foreign bodies. Elbow joint effusion. In the setting of trauma, an effusion may indicate occult fracture or internal derangement. Elbow and shoulder osteoarthrosis. Narrative Performed At * * * * * * * * ORIGINAL REPORT * * * * * * * * PACS/VR/DOSE EXAM: XR HUMERUS 2 VW RIGHT, EXAM: XR ELBOW <3 VW RIGHT, EXAM: XR SHOULDER 2+ VW RIGHT HISTORY: right arm deformity COMPARISON: None. FINDINGS: Imaging of the right shoulder, humerus and elbow was obtained. Diffuse soft tissue swelling and osteopenia are noted. A peripheral IV is seen at the level of the elbow. No acute fracture or dislocation is seen. An elbow joint effusion is present. Degenerative changes are seen at the shoulder and elbow. Punctate densities are seen in the proximal posterior forearm soft tissues. A right IJ approach catheter is partially visualized. Procedure Note [facility], Radiant Results Inft User - 04/21/2019 2:23 PM CDT * * * * * * * * ORIGINAL REPORT * * * * * * * * EXAM: XR HUMERUS 2 VW RIGHT, EXAM: XR ELBOW <3 VW RIGHT, EXAM: XR SHOULDER 2+ VW RIGHT HISTORY: right arm deformity COMPARISON: None. FINDINGS: Imaging of the right shoulder, humerus and elbow was obtained. Diffuse soft tissue swelling and osteopenia are noted. A peripheral IV is seen at the level of the elbow. No acute fracture or dislocation is seen. An elbow joint effusion is present. Degenerative changes are seen at the shoulder and elbow. Punctate densities are seen in the proximal posterior forearm soft tissues. A right IJ approach catheter is partially visualized. IMPRESSION No acute bony abnormality. Mild soft tissue swelling. Punctate densities in the proximal posterior forearm soft tissues may represent soft tissue calcifications or foreign bodies. Elbow joint effusion. In the setting of trauma, an effusion may indicate occult fracture or internal derangement. Elbow and shoulder osteoarthrosis. Performing Organization Address City/State/Zipcode Phone Number PACS/VR/DOSE Prepare Packed RBC (in units), 1 Units (04/21/2019 11:37 AM CDT) Cross Match Result Compatible LAB ISBT Blood Type Code 5100 LAB Unit Blood Type O Pos LAB Unit Number [id number] LAB Blood Expiration Date & LAB Time Status Information Issued LAB Product Identification Red Blood Cells LAB Product Code [id number] LAB Comment: Performed at [facility] Laboratory Services - [facility] Blood [place] [address] Toll Free: [phone] CLIA No. [id number] Specimen Performing Organization Address [facility] Phone Number D LAB Prepare Packed RBC (in units), 1 Units (04/21/2019 11:02 AM CDT) Cross Match Result Compatible LAB ISBT Blood Type Code 5100 LAB Unit Blood Type O Pos LAB Unit Number [id number] LAB Blood Expiration Date & LAB Time Status Information Returned from Issue LAB Product Identification Red Blood Cells LAB Product Code [id number] LAB Comment: Performed at [facility] Services [facility] Blood [place] [address] Toll Free: [phone] CLIA No. [id number] Specimen Performing Organization Address [facility] Phone Number D LAB AC PANEL 20 + LACTIC ACID (04/21/2019 10:22 AM CDT) PH 7.37 7.35 - 7.45 [facility] PCO2 50 (H) 35 - 45 mmHg [facility] PO2 461 (H) 80 - 100 mmHg [facility] HCO3 28 (H) 22 - 26 mEq/L [facility] BE 2.2 -3.0 - 3.0 mEq/L [facility] THB 7.1 (LL) 12.0 - 16.0 g/dL [facility] %O2HB 97.3 94.0 - 99.0 % [facility] %COHB ART 0.6 0.0 - 1.5 % [facility] %METHB ART 1.1 0.4 - 1.5 % [facility] VOL%O2 ART 11.1 (L) 15.0 - 23.0 % [facility] NA 128 (L) 135 - 145 mmol/L [facility] K+ 3.9 3.5 - 5.0 mmol/L [facility] AC CA IONZ 4.50 4.50 - 5.30 mg/dL [facility] GLUCOSE 113 (H) 70 - 110 mg/dL [facility] LACTIC ACID 1.37 0.50 - 2.20 mmol/L [facility] Specimen Blood - ARTERIAL Performing Organization Address City/State/Zipcode Phone Number [facility] CLIA: [id number], [address] [place] [address] [phone] [facility] XR CHEST 1 VW (04/21/2019 10:13 AM CDT) Specimen Impressions Performed At PACS/VR/DOSE 1. Stable position of right IJ dialysis catheter with the tip in the lower SVC. No pneumothorax. 2. Normal size cardiomediastinal silhouette with tortuous thoracic aorta. Bilateral hilar prominence and pulmonary vascular congestion. 3. Blunting of the right costophrenic angle suggestive of small pleural effusion or scarring.. Narrative Performed At * * * * * * * * ORIGINAL REPORT * * * * * * * * PACS/VR/DOSE PROCEDURE: CHEST, SINGLE VIEW 04/21/2019 at 10:10 AM CLINICAL INDICATION: SOB Patient is in HD, 2nd floor of [facility] Room 12 COMPARISON: 04/14/2019. Procedure Note [facility], Radiant Results Inft User - 04/21/2019 12:37 PM CDT * * * * * * * * ORIGINAL REPORT * * * * * * * * PROCEDURE: CHEST, SINGLE VIEW 04/21/2019 at 10:10 AM CLINICAL INDICATION: SOB Patient is in HD, 2nd floor of [facility] Room 12 COMPARISON: 04/14/2019. IMPRESSION 1. Stable position of right IJ dialysis catheter with the tip in the lower SVC. No pneumothorax. 2. Normal size cardiomediastinal silhouette with tortuous thoracic aorta. Bilateral hilar prominence and pulmonary vascular congestion. 3. Blunting of the right costophrenic angle suggestive of small pleural effusion or scarring.. Performing Organization Address City/State/Zipcode Phone Number PACS/VR/DOSE POCT GLUCOSE (AUTOMATED) (04/21/2019 9:59 AM CDT) POCT GLU 140 (H) 70 - 110 mg/dL [facility] Specimen Blood Performing Organization Address City/[facility]/Zipcode Phone Number [facility] CLIA: [id number], [address] [place] [phone] [facility] CBC WITH DIFFERENTIAL (04/21/2019 9:22 AM CDT) WBC 13.67 (H) 4.30 - 11.10 [facility] 10*3/L SERVICES RBC 1.79 (L) 3.93 - 5.25 [facility] 10*6/L SERVICES HGB 5.9 (L) 11.6 - 15.0 [facility] g/dL SERVICES HCT 17.9 (L) 35.7 - 45.2 [facility] % SERVICES MCV 100.0 (H) 80.6 - 95.5 [facility] fL SERVICES MCH 33.0 (H) 25.9 - 32.8 [facility] pg SERVICES MCHC 33.0 31.6 - 35.1 [facility] g/dL SERVICES RDW-SD 62.1 (H) 39.0 - 49.9 [facility] fL SERVICES RDW-CV 18.5 (H) 12.0 - 15.5 [facility] % SERVICES PLT 56 (L) 166 - 358 [facility] 10*3/L SERVICES MPV 11.8 9.5 - 12.9 [facility] fL SERVICES IPF % 6.1Comment: 1.3 - 7.7 % [facility] Platelet count SERVICES measured by fluorescence method. NRBC/100 WBC 2.4 0.0 - 10.0 [facility] /100 WBCs SERVICES NRBC x10^3 0.33 10*3/L [facility] GRAN MAT (NEUT) % 59.3 % [facility] IMM GRAN % 1.50 % [facility] LYMPH % 24.4 % [facility] MONO % 12.6 % [facility] EOS % 2.1 % [facility] BASO % 0.1 % [facility] GRAN MAT x10^3(ANC) 8.10 (H) 1.88 - 7.09 [facility] 10*3/uL SERVICES IMM GRAN x10^3 0.21 (H) 0.00 - 0.06 [facility] 10*3/uL SERVICES LYMPH x10^3 3.34 (H) 1.32 - 3.29 [facility] 10*3/uL SERVICES MONO x10^3 1.72 (H) 0.33 - 0.92 [facility] 10*3/uL SERVICES EOS x10^3 0.29 0.03 - 0.39 [facility] 10*3/uL SERVICES BASO x10^3 <0.03 0.01 - 0.07 [facility] 10*3/uL SERVICES POLYCHROMASIA 2+ 2+ [facility] Specimen Blood - LINE, ARTERIAL Performing Organization Address City/[facility]/Zipcode Phone Number [facility] CLIA: [id number], [address] [place], [place] [phone] [facility] aPTT (04/21/2019 9:22 AM CDT) APTT Patient 40 (H) 26 - 36 Seconds [facility] Specimen Blood - LINE, ARTERIAL Performing Organization Address City/State/Zipcode Phone Number [facility] CLIA: [id number], [address] [place] [address] [phone] [facility] Type and Screen - ONCE HALI (04/21/2019 6:37 AM CDT) ABO & RH O POSITIVE LAB Comment: Performed at [facility] Services - [facility] [address] [place] [address], [place], [place] [address] Toll Free: [phone] CLIA No. [id number] IAT Negative LAB Comment: Performed at [facility] Laboratory Services - [facility] Blood Bank [address] [place] [address] Toll Free: [phone] CLIA No. [id number] Specimen VENOUS Performing Organization Address City/State/Zipcode Phone Number [facility] POCT GLUCOSE (AUTOMATED) (04/21/2019 5:54 AM CDT) POCT GLU 74 70 - 110 mg/dL [facility] Specimen Blood Performing Organization Address City/State/Zipcode Phone Number [facility] CLIA: [id number], [address] [place] [address] [phone] [place] aPTT (04/21/2019 3:56 AM CDT) APTT Patient 31 26 - 36 Seconds [facility] Specimen Blood Performing Organization Address City/[facility]/Zipcode Phone Number [facility] CLIA: [id number], [address] [place] [address] [facility] CBC WITH DIFFERENTIAL (04/21/2019 3:56 AM CDT) WBC 14.29 (H) 4.30 - 11.10 [facility] 10*3/L SERVICES RBC 1.88 (L) 3.93 - 5.25 [facility] 10*6/L SERVICES HGB 6.1 (L) 11.6 - 15.0 [facility] g/dL SERVICES HCT 18.5 (L) 35.7 - 45.2 [facility] % SERVICES MCV 98.4 (H) 80.6 - 95.5 [facility] fL SERVICES MCH 32.4 25.9 - 32.8 [facility] pg SERVICES MCHC 33.0 31.6 - 35.1 [facility] g/dL SERVICES RDW-SD 62.1 (H) 39.0 - 49.9 [facility] fL SERVICES RDW-CV 18.1 (H) 12.0 - 15.5 [facility] % SERVICES PLT 58 (L) 166 - 358 [facility] 10*3/L SERVICES MPV 12.1 9.5 - 12.9 [facility] fL SERVICES IPF % 6.6Comment: 1.3 - 7.7 % [facility] Platelet count SERVICES measured by fluorescence method. NRBC/100 WBC 2.7 0.0 - 10.0 [facility] /100 WBCs SERVICES NRBC x10^3 0.39 10*3/L [facility] SERVICES GRAN MAT (NEUT) % 63.0 % [facility] SERVICES IMM GRAN % 1.50 % [facility] SERVICES LYMPH % 20.4 % [facility] SERVICES MONO % 13.2 % [facility] SERVICES EOS % 1.8 % [facility] SERVICES BASO % 0.1 % [facility] SERVICES GRAN MAT x10^3(ANC) 9.01 (H) 1.88 - 7.09 [facility] 10*3/uL SERVICES IMM GRAN x10^3 0.21 (H) 0.00 - 0.06 [facility] 10*3/uL SERVICES LYMPH x10^3 2.92 1.32 - 3.29 [facility] 10*3/uL SERVICES MONO x10^3 1.88 (H) 0.33 - 0.92 [facility] 10*3/uL SERVICES EOS x10^3 0.26 0.03 - 0.39 [facility] 10*3/uL SERVICES BASO x10^3 <0.03 0.01 - 0.07 [facility] 10*3/uL SERVICES BASO STIPPLING Present (A) [facility] POLYCHROMASIA 2+ 2+ [facility] Specimen Blood - ARM, RIGHT Performing Organization Address [facility] Phone Number [facility] CLIA: [id number], [address] [place] [address] [facility] MAGNESIUM (04/21/2019 3:56 AM CDT) MAGNESIUM 2.0 1.7 - 2.4 mg/dL [facility] Specimen Blood - ARM, RIGHT Performing Organization Address [facility] Phone Number [facility] CLIA: [id number], [address] [place], [place] [phone] [facility] BASIC METABOLIC PANEL (NA, K, CL, CO2, GLUCOSE, BUN, CREATININE, CA) (2018 3:56 AM CDT) NA 127 (L) 135 - 145 [facility] mmol/L SERVICES K 4.5Comment: 3.5 - 5.0 [facility] Slight hemolysis mmol/L SERVICES CL 96 (L) 98 - 108 [facility] mmol/L SERVICES CO2 TOTAL 27 23 - 31 [facility] mmol/L SERVICES AGAP 4 2 - 16 [facility] SERVICES BUN 46 (H)Comment: 7 - 23 mg/dL [facility] Slight hemolysis SERVICES GLUCOSE 79 70 - 110 [facility] mg/dL SERVICES CREATININE 2.83 (H) 0.50 - 1.04 [facility] mg/dL SERVICES CALCIUM 7.5 (L) 8.6 - 10.6 [facility] mg/dL SERVICES eGFR Calculation 16.1 mL/min/1.73m2 [facility] (Non- SERVICES Jordanian) eGFR Calculation 19.6 mL/min/1.73m2 [facility] () SERVICES Specimen Blood - ARM, RIGHT Narrative Performed At Association of Glomerular Filtration Rate (GFR) and Staging [facility] [facility] of Kidney Disease* + + + + | GFR (mL/min/1.73 m2)| With Kidney Damage|Without Kidney Damage + + + + |>90|Stage one| Normal + + + + |60-89|Stage two| Decreased GFR + + + + |30-59|Stage three| Stage three + + + + |15-29|Stage four | Stage four + + + + |<15 (or dialysis)|Stage five | Stage five + + + + *Each stage assumes the associated GFR level has been in effect for at least three months.Stages 1 to 5, with or without kidney disease, indicate chronic kidney disease. Notes: Determination of stages one and two (with eGFR >59mL/min/1.73 m2) requires estimation of kidney damage for at least three months as defined by structural or functional abnormalities of the kidney, manifested by either: Pathological abnormalities or Markers of kidney damage (including abnormalities in the composition of the blood or urine or abnormalities in imaging tests). Performing Organization Address City/State/Zipcode Phone Number [facility] CLIA: [id number], [address] [place] [address] AST, SGOT (ASPARTATE AMINO TRANSFER) (04/21/2019 3:56 AM CDT) AST(SGOT) 28 13 - 40 U/L [facility] Specimen Blood - ARM, RIGHT Performing Organization Address City/[facility] Phone Number [facility] CLIA: [id number], [address] [place] [address] [phone] [facility] ALT, ALANINE AMINO TRANSFERASE(SGPT (04/21/2019 3:56 AM CDT) ALT(SGPT) 30 9 - 51 U/L [facility] Specimen Blood - ARM, RIGHT Performing Organization Address City/[facility] Phone Number [facility] CLIA: [id number], [address] [place] [address] 95487 [phone] [facility] POCT GLUCOSE (AUTOMATED) (04/20/2019 11:43 PM CDT) POCT GLU 97 70 - 110 mg/dL [facility] Specimen Blood Performing Organization Address [facility] Phone Number [facility] CLIA: [id number], [address] [place] [address] [phone] [facility] POCT GLUCOSE (AUTOMATED) (04/20/2019 5:20 PM CDT) POCT GLU 124 (H) 70 - 110 mg/dL [facility] Specimen Blood Performing Organization Address [facility] Number [facility] CLIA: [id number], [address] [place] [address] [phone] [facility] POCT GLUCOSE (AUTOMATED) (04/20/2019 1:26 PM CDT) POCT GLU 139 (H) 70 - 110 mg/dL [facility] Specimen Blood Performing Organization Address [facility] Phone Number [facility] CLIA: [id number], [address] [place] [address] [phone] [facility] POCT GLUCOSE (AUTOMATED) (04/20/2019 12:26 PM CDT) POCT GLU 69 (L) 70 - 110 mg/dL [facility] Specimen Blood Performing Organization Address [facility] Phone Number [facility] CLIA: [id number], [address] [place] [address] [phone] [facility] IRON PANEL (04/20/2019 12:06 PM CDT) IRON 46 (L) 50 - 160 ug/dL [facility] TIBC 187 (L) 250 - 410 ug/dL [facility] % FE SAT 25 20 - 50 % [facility] Specimen Blood Performing Organization Address City/State/Zipcode Phone Number [facility] CLIA: [id number], [address] [place] [address] 54938 [phone] [facility] EXTRA TUBE RED (04/20/2019 12:06 PM CDT) Specimen Blood Performing Organization Address City/State/Zipcode Phone Number [facility] CLIA: [id number], [address] [place] [phone] [facility] EXTRA TUBE SST (04/20/2019 12:06 PM CDT) Specimen Blood Performing Organization Address City/[facility]/Zipcode Phone Number [facility] CLIA: [id number], [address] [place] [phone] [facility] PROFILE / HEMOGRAM (04/20/2019 12:06 PM CDT) WBC 13.05 (H) 4.30 - 11.10 [facility] 10*3/L SERVICES RBC 2.11 (L) 3.93 - 5.25 [facility] 10*6/L SERVICES HGB 7.1 (L) 11.6 - 15.0 [facility] g/dL SERVICES HCT 20.9 (L) 35.7 - 45.2 % [facility] MCH 33.6 (H) 25.9 - 32.8 pg [facility] MCV 99.1 (H) 80.6 - 95.5 fL [facility] MCHC 34.0 31.6 - 35.1 [facility] g/dL SERVICES PLT 53 (L) 166 - 358 [facility] 10*3/L SERVICES MPV 11.8 9.5 - 12.9 fL [facility] RDW-CV 18.6 (H) 12.0 - 15.5 % [facility] RDW-SD 62.5 (H) 39.0 - 49.9 fL [facility] NRBC x10^3 0.75 10*3/L [facility] NRBC/100 WBC 5.7 0.0 - 10.0 [facility] /100 WBCs SERVICES IPF % 6.6Comment: Platelet 1.3 - 7.7 % [facility] count measured by SERVICES fluorescence method. Specimen Blood - ARM, RIGHT Performing Organization Address [facility] Phone Number [facility] CLIA: [id number], [address] [place] [phone] [facility] aPTT (04/20/2019 12:06 PM CDT) APTT Patient 79 (H) 26 - 36 Seconds [facility] Specimen Blood - ARM, RIGHT Performing Organization Address [facility] Phone Number [facility] CLIA: [id number], [address] [place] [address] [phone] [facility] aPTT (04/20/2019 12:04 PM CDT) APTT Patient 81 (H) 26 - 36 Seconds [facility] Specimen Blood - CENTRAL VENOUS LINE Performing Organization Address [facility] Phone Number [facility] CLIA: [id number], [address] [place] [address] [phone] [facility] POCT GLUCOSE (AUTOMATED) (04/20/2019 11:43 AM CDT) POCT GLU 49 (LL) 70 - 110 mg/dL [facility] Specimen Blood Performing Organization Address [facility] Phone Number [facility] CLIA: [id number], [address] [place] [address] 49736 [phone] [facility] POCT GLUCOSE (AUTOMATED) (04/20/2019 5:47 AM CDT) POCT GLU 77 70 - 110 mg/dL [facility] Specimen Blood Performing Organization Address [facility] Phone Number [facility] CLIA: [id number], [address] [place] [address] [phone] [facility] CBC WITH DIFFERENTIAL (04/20/2019 2:50 AM CDT) WBC 13.22 (H) 4.30 - 11.10 [facility] 10*3/L SERVICES RBC 2.41 (L) 3.93 - 5.25 [facility] 10*6/L SERVICES HGB 7.8 (L) 11.6 - 15.0 [facility] g/dL SERVICES HCT 22.6 (L) 35.7 - 45.2 [facility] % SERVICES MCV 93.8 80.6 - 95.5 [facility] fL SERVICES MCH 32.4 25.9 - 32.8 [facility] pg SERVICES MCHC 34.5 31.6 - 35.1 [facility] g/dL SERVICES RDW-SD 59.7 (H) 39.0 - 49.9 [facility] fL SERVICES RDW-CV 18.2 (H) 12.0 - 15.5 [facility] % SERVICES PLT 52 (L) 166 - 358 [facility] 10*3/L SERVICES MPV 12.2 9.5 - 12.9 [facility] fL SERVICES IPF % 6.2Comment: 1.3 - 7.7 % [facility] Platelet count SERVICES measured by fluorescence method. NRBC/100 WBC 5.1 0.0 - 10.0 [facility] /100 WBCs SERVICES NRBC x10^3 0.68 10*3/L [facility] GRAN MAT (NEUT) % 72.8 % [facility] IMM GRAN % 1.40 % [facility] LYMPH % 13.5 % [facility] MONO % 10.7 % [facility] EOS % 1.4 % [facility] BASO % 0.2 % [facility] GRAN MAT x10^3(ANC) 9.62 (H) 1.88 - 7.09 [facility] 10*3/uL SERVICES IMM GRAN x10^3 0.19 (H) 0.00 - 0.06 [facility] 10*3/uL SERVICES LYMPH x10^3 1.79 1.32 - 3.29 [facility] 10*3/uL SERVICES MONO x10^3 1.41 (H) 0.33 - 0.92 [facility] 10*3/uL SERVICES EOS x10^3 0.18 0.03 - 0.39 [facility] 10*3/uL SERVICES BASO x10^3 0.03 0.01 - 0.07 [facility] 10*3/uL SERVICES BASO STIPPLING Present (A) [facility] POLYCHROMASIA 2+ 2+ [facility] Specimen Blood - ARM, LEFT Performing Organization Address City/State/Zipcode Phone Number [facility] CLIA: [id number], [address] [place] [address] [phone] [facility] FERRITIN SERUM (04/20/2019 2:49 AM CDT) FERRITIN 340.0 (H) 11.0 - 264.0 ng/mL [facility] Specimen Blood - ARM, LEFT Narrative Performed At Biotin has been reported to cause a negative bias, interpret [facility] results relative to patient's use of biotin. Performing Organization Address City/State/Zipcode Phone Number [facility] CLIA: [id number], [address] [place] [address] [phone] [facility] CARTER, Unfractionated Heparin (04/20/2019 2:49 AM CDT) CARTER, Unfractionated 2 % [facility] Heparin, Low Dose CARTER, Unfractionated 0 % [facility] Heparin, High Dose CARTER, Unfractionated Negative Negative [facility] Heparin (Porcine) CARTER, Unfractionated See Note [facility] Heparin, Interp. Comment: This patient's specimen demonstrates a negative result in the serotonin release assay.A diagnosis of heparin-induced thrombocytopenia (HIT) is unlikely, but not completely excluded. A positive result would demonstrate >=20% serotonin release from reagent platelets in the presence of patient specimen and low-dose heparin (0.1 U/mL) and <20% serotonin release from reagent platelets (inhibition of the reaction) in the presence of patient specimen and high-dose heparin (100 U/mL). Additional information regarding diagnosis of HIT is available at [employer]. INTERPRETIVE INFORMATION: CARTER, Unfractionated Heparin Test developed and characteristics determined by [employer]. See Compliance Statement B: [employer]/CS Performed by [employer], [address] [place] [address] [email or web address], Александр Hayden MD, Lab. Director Specimen Blood - ARM, LEFT Performing Organization Address City/[facility]/Zipcode Phone Number [facility] [address] [place] [phone] HIT - AB (04/20/2019 2:49 AM CDT) HIT-Ab Positive (A) Negative [facility] Specimen Blood - ARM, LEFT Narrative Performed At Although a positive result obtained using this assay may [facility] indicate the presence of heparin-associated antibodies, a positive result DOES NOT CONFIRM the diagnosis of HIT. Some patiens may have naturally occurring antibodies to PF4. The positive or negative result should be used with other information, including the clinical context, in forming a diagnosis such as the4T score and the 2013 [place] [employer]emat[employer] guidelines. Performing Organization Address [facility] Phone Number [facility] CLIA: [id number], [address] [place] [address] [facility] Misc. Sendout- Heparin-Induced Thrombocytopenia (HIT) PF4 Antibody, IgG with Reflex to Serotonin Release Assay (Heparin Dependent Platelet Antibody), Unfractionated Heparin (04/20/2019 2:49 AM CDT) Pathologist [facility] Miscellaneous Test See scanned [facility] (PLEASE report SPECIFY IN COMMENTS) Performing Lab [facility] EXTLAB (PLEASE SPECIFY IN COMMENTS) Specimen Blood - VENOUS Narrative Performed At Performing Organization Address [facility] Phone Number [facility] (PLEASE SPECIFY IN COMMENTS) AST, SGOT (Asparate Amino Transfer) (04/20/2019 2:49 AM CDT) AST(SGOT) 30Comment: Slight 13 - 40 U/L [facility] hemolysis SERVICES Specimen Blood - ARM, LEFT Performing Organization Address City/[facility]/Zipcode Phone Number [facility] CLIA: [id number], [address] [place] [address] [phone] [facility] ALT, Alanine and Amino Transferase(SGPT (04/20/2019 2:49 AM CDT) ALT(SGPT) 30Comment: Slight 9 - 51 U/L [facility] hemolysis SERVICES Specimen Blood - ARM, LEFT Performing Organization Address [facility]/Zipcode Phone Number [facility] CLIA: [id number], [address] [place] [phone] [facility] Bilirubin Total (04/20/2019 2:49 AM CDT) TOTAL BILI 1.5 (H) 0.1 - 1.1 mg/dL [facility] Specimen Blood - ARM, LEFT Performing Organization Address [facility] Phone Number [facility] CLIA: [id number], [address] [place] [phone] [facility] Prothrombin Time / INR (04/20/2019 2:49 AM CDT) PROTIME PATIENT 13.1 (H) 10.1 - 12.6 [facility] Seconds SERVICES INR 1.2Comment: Normal [facility] INR <1.1; Warfarin SERVICES Therapeutic range 2.0 to 3.0 or 2.5 to 3.5, depending upon the indications. Specimen Blood - ARM, LEFT Performing Organization Address [facility] Phone Number [facility] CLIA: [id number], [address] [place] [address] [phone] [facility] aPTT (04/20/2019 2:49 AM CDT) Pathologist [facility] APTT Patient 24 (L) 26 - 36 Seconds [facility] Specimen Blood - ARM, LEFT Performing Organization Address [facility] Phone Number [facility] CLIA: [id number], [address] [place] [address] 06001 [phone] [facility] POCT GLUCOSE (AUTOMATED) (04/19/2019 11:44 PM CDT) POCT GLU 69 (L) 70 - 110 mg/dL [facility] Specimen Blood Performing Organization Address [facility]/Zipcode Phone Number [facility] CLIA: [id number], [address] [place] [address] [phone] [facility] POCT GLUCOSE (AUTOMATED) (04/19/2019 4:27 PM CDT) POCT GLU 81 70 - 110 mg/dL [facility] Specimen Blood Performing Organization Address [facility] Phone Number [facility] CLIA: [id number], [address] [place] [address] HEMOGLOBIN (04/19/2019 4:22 PM CDT) HGB 9.0 (L) 11.6 - 15.0 g/dL [facility] Specimen Blood - ARM, RIGHT Performing Organization Address [facility] Phone Number [facility] CLIA: [id number], [address] [place] [address] POCT GLUCOSE (AUTOMATED) (04/19/2019 11:27 AM CDT) POCT GLU 78 70 - 110 mg/dL [facility] Specimen Blood Performing Organization Address [facility] Phone Number [facility] CLIA: [id number], [address] [place] [address] POCT GLUCOSE (AUTOMATED) (04/19/2019 7:16 AM CDT) POCT GLU 80 70 - 110 mg/dL [facility] Specimen Blood Performing Organization Address [facility] Phone Number [facility] CLIA: [id number], [address] [place] [address] POCT GLUCOSE (AUTOMATED) (04/19/2019 4:30 AM CDT) POCT GLU 78 70 - 110 mg/dL [facility] Specimen Blood Performing Organization Address [facility] Phone Number [facility] CLIA: [id number], [address] [place] [address] CBC WITH DIFFERENTIAL (04/19/2019 4:29 AM CDT) WBC 13.64 (H) 4.30 - 11.10 [facility] 10*3/L [facility]ORATORY RBC 1.88 (L) 3.93 - 5.25 [facility] 10*6/L [facility] LABORATORY HGB 6.3 (L) 11.6 - 15.0 [facility] g/dL [facility] LABORATORY HCT 18.6 (L) 35.7 - 45.2 % [facility] MCV 98.9 (H) 80.6 - 95.5 [facility] LABORATORY MCH 33.5 (H) 25.9 - 32.8 [facility] pg [facility] LAB[facility]ATORY MCHC 33.9 31.6 - 35.1 [facility] g/dL [facility] LABORATORY RDW-SD 54.7 (H) 39.0 - 49.9 [facility] LABORATORY RDW-CV 15.7 (H) 12.0 - 15.5 % [facility] PLT 56 (L) 166 - 358 [facility] 10*3/L [facility] LABORATORY MPV 11.4 9.5 - 12.9 fL [facility] IPF % 6.4Comment: Platelet 1.3 - 7.7 % [facility] count measured by HOSPITAL fluorescence method. LABORATORY NRBC/100 WBC 13.3 (H) 0.0 - 10.0 [facility] /100 WBCs [facility] LAB[facility]ATORY NRBC x10^3 1.81 10*3/L [facility] GRAN MAT (NEUT) % 76.8 % [facility] IMM GRAN % 2.00 % [facility] LYMPH % 13.4 % [facility] MONO % 7.0 % [facility] EOS % 0.7 % [facility] BASO % 0.1 % [facility] GRAN MAT 10.49 (H) 1.88 - 7.09 [facility] x10^3(ANC) 10*3/uL [facility]OSPITAL LAB[facility]ATORY IMM GRAN x10^3 0.27 (H) 0.00 - 0.06 [facility] 10*3/uL [facility]ITAL LAB[facility]ORY LYMPH x10^3 1.83 1.32 - 3.29 [facility] 10*3/uL [facility]PITAL LAB[facility]ORY MONO x10^3 0.95 (H) 0.33 - 0.92 [facility] 10*3/uL [facility] LAB[facility]ATORY EOS x10^3 0.09 0.03 - 0.39 [facility] 10*3/uL [facility]PITAL LAB[facility]ORY BASO x10^3 <0.03 0.01 - 0.07 [facility] 10*3/uL [facility] Specimen Blood - ARM, LEFT Performing Organization Address City/State/Zipcode Phone Number [facility] CLIA: [id number], [address] [place] [address] D-DIMER (04/19/2019 4:28 AM CDT) D-DIMER >20.00 (H) <0.41 g/mL (FEU) [facility] Specimen Blood - ARM, LEFT Narrative Performed At This test may be used in conjunction with a [facility] clinical pretest probability (PTP) assessment model to exclude pulmonary embolism (PE) and as an aid in the diagnosis of deep venous thrombosis (DVT) in outpatients suspected of PE or DVT. A D-Dimer value less than 0.50 g/ml (FEU) has a negative predicative value of 98 to 100% (95% CI) for the exclusion of pulmonary embolism (PE) and 95 to 100% (95% CI) as an aid in the diagnosis of deep vein thrombosis (DVT) when there is low or moderate pretest probability of PE or DVT. D-Dimer values are expressed in initial fibrinogen equivalent units (FEU). Performing Organization Address City/State/Zipcode Phone Number [facility] CLIA: [id number], [address] [place] [address] COMP. METABOLIC PANEL ([id number]) (04/19/2019 4:28 AM CDT) NA 132 (L) 135 - 145 [facility] mmol/L [facility] LABORATORY K 3.7 3.5 - 5.0 [facility] mmol/L [facility]ORY CL 98 98 - 108 mmol/L [facility] CO2 TOTAL 29 23 - 31 mmol/L [facility] AGAP 5 2 - 16 [facility] BUN 31 (H) 7 - 23 mg/dL [facility] GLUCOSE 73 70 - 110 mg/dL [facility] CREATININE 2.77 (H) 0.50 - 1.04 [facility] mg/dL HOSPITAL LABORATORY TOTAL BILI 1.2 (H) 0.1 - 1.1 mg/dL [facility] CALCIUM 7.8 (L) 8.6 - 10.6 [facility] mg/dL [facility] LABORATORY T PROTEIN 4.7 (L) 6.3 - 8.2 g/dL [facility] ALBUMIN 2.3 (L) 3.5 - 5.0 g/dL [facility] ALK PHOS 44 34 - 122 U/L [facility] ALT(SGPT) 29 9 - 51 U/L [facility] AST(SGOT) 23 13 - 40 U/L [facility] eGFR Calculation 16.5 mL/min/1.73m2 [facility] ([facility] LABORATORY [place]) eGFR Calculation 20.1 mL/min/1.73m2 [facility] () [facility] Specimen Blood - ARM, LEFT Narrative Performed At Association of Glomerular Filtration Rate (GFR) [facility] and Staging of Kidney Disease* + + +- + | GFR (mL/min/1.73 m2)| With Kidney Damage|Without Kidney Damage + + +- + |>90| Stage one| Normal + + +- + |60-89|S tage two| Decreased GFR + + +- + |30-59|S tage three| Stage three + + +- + |15-29|S tage four | Stage four + + +- + |<15 (or dialysis)|Stage five | Stage five + + +- + *Each stage assumes the associated GFR level has been in effect for at least three months.Stages 1 to 5, with or without kidney disease, indicate chronic kidney disease. Notes: Determination of stages one and two (with eGFR >59mL/min/1.73 m2) requires estimation of kidney damage for at least three months as defined by structural or functional abnormalities of the kidney, manifested by either: Pathological abnormalities or Markers of kidney damage (including abnormalities in the composition of the blood or urine or abnormalities in imaging tests). Performing Organization Address [facility] Phone Number [facility] [id number], [address] [place], [place] [address] LAB[address] FIBRINOGEN (04/19/2019 4:28 AM CDT) Fibrinogen 154 (L) 214 - 470 mg/dL [facility] Specimen Blood - ARM, LEFT Performing Organization Address [facility] Phone Number [facility] CLIA: [id number], [address] [place] [address] aPTT (04/19/2019 4:28 AM CDT) APTT Patient 34 23 - 38 Seconds [facility] Specimen Blood - ARM, LEFT Narrative Performed At The [facility] patient population mean normal value [facility] for aPTT is 30 seconds. Performing Organization Address City/State/Zipcode Phone Number [facility] CLIA: [id number], [address] [place] [address] PROTHROMBIN TIME / INR (04/19/2019 4:28 AM CDT) PROTIME PATIENT 15.6 (H) 12.0 - 14.7 [facility] LABORATORY INR 1.3Comment: Normal [facility] INR <1.1; Warfarin [facility] Therapeutic range LABORATORY 2.0 to 3.0 or 2.5 to 3.5, depending upon the indications. Specimen Blood - ARM, LEFT Performing Organization Address [facility] Phone Number [facility] CLIA: [id number], [address] [place] [address] ANTI-NUCLEAR ANTIBODY SCREEN (04/19/2019 4:28 AM CDT) Pathologist [facility] DRAKE Negative Negative [facility] Specimen Blood - ARM, LEFT Narrative Performed At Negative - No Anti-Nuclear Antibodies detected by IFA. [facility] Positive - DRAKE IFA screen performed with a 1:80 dilution in adults and a 1:40 dilution in pediatrics. Any DRAKE "Positive" will have titer performed and reported separately. Negative - No Anti-Nuclear Antibodies detected by IFA. Positive - DRAKE IFA screen performed with a 1:80 dilution in adults and a 1:40 dilution in pediatrics. Any DRAKE "Positive" will have titer performed and reported separately. Performing Organization Address City/State/Zipcode Phone Number [facility] CLIA: [id number], [address] [place] [phone] [facility] POCT GLUCOSE (AUTOMATED) (04/19/2019 12:11 AM CDT) [facility] POCT GLU 84 70 - 110 mg/dL [facility]OR[facility] Specimen Blood Performing Organization Address City/[facility]/Zipcode Phone Number [facility] CLIA: [id number], [address] [place] [address] Prepare Cryoprecipitate (in units): 2 Units~Indication: 1) Fibrinogen < 100 mg/dL with bleeding or potential for bleeding associated with invasive procedure (04/18/2019 9:44 PM CDT) Unit Blood Type O Pos LAB ISBT Blood Type Code 5100 LAB Unit Number [id number] LAB Blood Expiration Date LAB & Time Status Information Issued LAB Product Identification Cryoprecipitate LAB Product Code [id number] LAB Comment: Performed at [facility] Laboratory Services [facility] Blood [place] [address] Toll Free: [phone] CLIA No. [id number] Unit Blood Type O Pos LAB ISBT Blood Type Code 5100 LAB Unit Number [id number] LAB Blood Expiration Date LAB & Time Status Information Issued LAB Product Identification Cryoprecipitate LAB Product Code [id number] LAB Comment: Performed at [facility] Laboratory Services [facility] Blood [place] [address] Toll Free: [phone] CLIA No. [id number] Specimen Performing Organization Address City/State/Zipcode Phone Number BLD LAB POCT GLUCOSE (AUTOMATED) (04/18/2019 9:00 PM CDT) [facility] POCT GLU 79 70 - 110 mg/dL [facility] LABORATORY Specimen Blood Performing Organization Address City/State/Zipcode Phone Number [facility] CLIA: [id number], [address] [place] [address] Drive ABORH CONFIRMATION (04/18/2019 7:15 PM CDT) ABO & RH O Positive LAB Comment: [email or web address] Performed at [facility] Laboratory Services [facility] Blood [place] [address] Toll Free: [phone] CLIA No. [id number] Specimen Performing Organization Address City/State/Zipcode Phone Number BLD LAB Type and Screen - ONCE HALI (04/18/2019 7:15 PM CDT) ABO & RH O Positive LAB Comment: Performed at [facility] Laboratory [facility] Blood [place] [address] Toll Free: [phone] CLIA No. [id number] IAT Negative LAB Comment: Performed at [facility] Laboratory Services - [facility] Blood [facility] [address] [facility] [place], [place], [place] [address] Toll Free: [phone] CLIA No. [id number] Specimen VENOUS Performing Organization Address City/State/Zipcode Phone Number D LAB POCT GLUCOSE (AUTOMATED) (04/18/2019 4:33 PM CDT) POCT GLU 93 70 - 110 mg/dL [facility] LABOR[facility] Specimen Blood Performing Organization Address City/[facility]/Zipcode Phone Number [facility] CLIA: [id number], [address] [place] [address] [facility] Hospital Drive CARTER, Unfractionated Heparin (04/18/2019 3:02 PM CDT) CARTER, Unfractionated 3 % [facility] Heparin, Low Dose CARTER, Unfractionated 2 % [facility] Heparin, High Dose CARTER, Unfractionated Negative Negative [facility] Heparin (Porcine) CARTER, Unfractionated See Note [facility] Heparin, Interp. Comment: This patient's specimen demonstrates a negative result in the serotonin release assay.A diagnosis of heparin-induced thrombocytopenia (HIT) is unlikely, but not completely excluded. A positive result would demonstrate >=20% serotonin release from reagent platelets in the presence of patient specimen and low-dose heparin (0.1 U/mL) and <20% serotonin release from reagent platelets (inhibition of the reaction) in the presence of patient specimen and high-dose heparin (100 U/mL). Additional information regarding diagnosis of HIT is available at [employer]. INTERPRETIVE INFORMATION: CARTER, Unfractionated Heparin Test developed and characteristics determined by [employer]. See Compliance Statement B: [email or web address]/CS Performed by [employer], [address] [place], [place] [id number] [email or web address], Александр Hayden MD, Lab. Director Specimen Blood - VENOUS Performing Organization Address [facility]/Zipcode Phone Number [facility] [address] [place] [address] EXTRA SST HOLD FOR [employer] (04/18/2019 3:02 PM CDT) Specimen Blood - VENOUS Performing Organization Address City/State/Zipcode Phone Number [facility] CLIA: [id number], [address] [place] [address] [facility] HIT - AB (04/18/2019 3:02 PM CDT) [facility] HIT-Ab Positive (A) Negative [facility] Specimen Blood - VENOUS Narrative Performed At Although a positive result obtained using this assay may [facility] indicate the presence of heparin-associated antibodies, a positive result DOES NOT CONFIRM the diagnosis of HIT. Some patiens may have naturally occurring antibodies to PF4. The positive or negative result should be used with other information, including the clinical context, in forming a diagnosis such as the4T score and the 2013 [place] Society [employer] Hemat[employer] guidelines. Performing Organization Address City/State/Zipcode Phone Number [facility] CLIA: [id number], [address] [place] [address] [phone] [facility] aPTT (04/18/2019 3:02 PM CDT) [facility] APTT Patient 54 (H) 23 - 38 Seconds [facility]OR[facility] Specimen Blood - VENOUS Narrative Performed At The [facility] patient population mean normal value [facility] for aPTT is 30 seconds. Performing Organization Address City/[facility] Phone Number [facility] CLIA: [id number], [address] [place] [address] PROTHROMBIN TIME / INR (04/18/2019 3:02 PM CDT) [facility] PROTIME PATIENT 15.9 (H) 12.0 - 14.7 [facility] LABORATORY INR 1.3Comment: Normal [facility] INR <1.1; Warfarin [facility] Therapeutic range LABORATORY 2.0 to 3.0 or 2.5 to 3.5, depending upon the indications. Specimen Blood - VENOUS Performing Organization Address City/[facility] Phone Number [facility] CLIA: [id number], [address] [place] [address] D-DIMER (04/18/2019 3:02 PM CDT) [facility] D-DIMER >20.00 (H) <0.41 g/mL (FEU) [facility]OR[facility] Specimen Blood - VENOUS Narrative Performed At This test may be used in conjunction with a [facility] clinical pretest probability (PTP) assessment model to exclude pulmonary embolism (PE) and as an aid in the diagnosis of deep venous thrombosis (DVT) in outpatients suspected of PE or DVT. A D-Dimer value less than 0.50 g/ml (FEU) has a negative predicative value of 98 to 100% (95% CI) for the exclusion of pulmonary embolism (PE) and 95 to 100% (95% CI) as an aid in the diagnosis of deep vein thrombosis (DVT) when there is low or moderate pretest probability of PE or DVT. D-Dimer values are expressed in initial fibrinogen equivalent units (FEU). Performing Organization Address City/[facility] Phone Number [facility] CLIA: [id number], [address] [place] [address] FIBRINOGEN (04/18/2019 3:02 PM CDT) Fibrinogen 83 (LL) 214 - 470 mg/dL [facility] LABOR[facility] Specimen Blood - VENOUS Performing Organization Address [facility] Phone Number [facility] CLIA: [id number], [address] [place] [address] LACTATE DEHYDROGENASE (04/18/2019 12:49 PM CDT) LDH 1,015 (H) 300 - 600 U/L [facility] LABORAT[facility] Specimen Blood - ARM, LEFT Performing Organization Address [facility] Number [facility] CLIA: [id number], [address] [place] [address] MAGNESIUM (04/18/2019 12:48 PM CDT) MAGNESIUM 1.5 (L) 1.7 - 2.4 mg/dL [facility] Specimen Blood - ARM, LEFT Performing Organization Address [facility] Phone Number [facility] CLIA: [id number], [address] [place], [place] [address] [facility] HAPTOGLOBIN, SERUM (04/18/2019 12:48 PM CDT) HAPTOGLOB 159 16 - 200 mg/dL [facility] Specimen Blood - ARM, LEFT Performing Organization Address [facility] Phone Number [facility] CLIA: [id number], [address] [place], [place] [address] [facility] EXTRA SST HOLD FOR [facility] (04/18/2019 11:40 AM CDT) Specimen Blood - ARM, LEFT Performing Organization Address [facility] Phone Number [facility] CLIA: [id number], [address] POCT GLUCOSE (AUTOMATED) (04/18/2019 11:19 AM CDT) POCT GLU 100 70 - 110 mg/dL [facility] LABORAT[facility] Specimen Blood Performing Organization Address [facility] Phone Number [facility] CLIA: [id number], [address] [facility] POCT GLUCOSE (AUTOMATED) (04/18/2019 7:30 AM CDT) Pathologist [facility] POCT GLU 80 70 - 110 mg/dL [facility] LABOR[facility] Specimen Blood Performing Organization Address [facility] Phone Number [facility] CLIA: [id number], [address] [place] [address] MANUAL DIFF. FOR DIFF. CONSULT (04/18/2019 4:46 AM CDT) Specimen Blood - VENOUS Performing Organization Address [facility] Phone Number [facility] CLIA: [id number], [address] [place] [address] DIFF CONSULT INTERPRETATION (04/18/2019 4:46 AM CDT) Specimen Blood - VENOUS Narrative Performed At [facility] are normocytic and normochromic. There are increased [facility] polychromasia (reticulocytosis) without increased schistocytes or microspherocytes. There are increased target cells. There is neutrophilia. Neutrophils appear normal morphologically. Lymphocytes are small and mature. No abnormal lymphoid cells or blasts are seen. Platelets are decreased with normal morphology. Anemia is likely due to blood loss rather than hemolysis, with reactive neutrophilia. Performing Organization Address City/[facility]/Zipcode Phone Number [facility] CLIA: [id number], [address] [place] [address] [phone] [facility] CBC WITH DIFFERENTIAL (04/18/2019 4:46 AM CDT) WBC 15.05 (H) 4.30 - 11.10 [facility] 10*3/L HOSPITAL LABORATORY RBC 2.31 (L) 3.93 - 5.25 [facility] 10*6/L HOSPITAL LABORATORY HGB 7.8 (L) 11.6 - 15.0 [facility] g/dL [facility] LABORATORY HCT 22.9 (L) 35.7 - 45.2 % [facility] MCV 99.1 (H) 80.6 - 95.5 fL [facility] LABOR[facility] MCH 33.8 (H) 25.9 - 32.8 pg [facility] LABOR[facility] MCHC 34.1 31.6 - 35.1 [facility] g/dL [facility] LABORATORY RDW-SD 56.3 (H) 39.0 - 49.9 fL [facility] LABOR[facility] RDW-CV 16.1 (H) 12.0 - 15.5 % [facility] LABORATORY PLT 71 (L) 166 - 358 [facility] 10*3/L [facility] LABORATORY MPV 11.3 9.5 - 12.9 fL [facility] LABOR[facility] NRBC/100 WBC 10.0 0.0 - 10.0 /100 [facility] WBCs [facility] LABORATORY NRBC x10^3 1.50 10*3/L [facility] GRAN MAT (NEUT) % 67.8 % [facility] IMM GRAN % 2.70 % [facility] LYMPH % 15.0 % [facility] MONO % 14.2 % [facility] EOS % 0.1 % [facility] BASO % 0.2 % [facility] GRAN MAT 10.20 (H) 1.88 - 7.09 [facility] x10^3(ANC) 10*3/uL HOSPITAL LABORATORY IMM GRAN x10^3 0.41 (H) 0.00 - 0.06 [facility] 10*3/uL HOSPITAL LABORATORY LYMPH x10^3 2.26 1.32 - 3.29 [facility] 10*3/uL HOSPITAL LABORATORY MONO x10^3 2.14 (H) 0.33 - 0.92 [facility] 10*3/uL HOSPITAL LABORATORY EOS x10^3 <0.03 (L) 0.03 - 0.39 [facility] 10*3/uL HOSPITAL LABORATORY BASO x10^3 0.03 0.01 - 0.07 [facility] 10*3/uL HOSPITAL LABORATORY TARGET CELLS 2+ (A) (none) [facility] PLT ESTIMATE Decreased (A) Normal [facility] Specimen Blood - VENOUS Performing Organization Address City/[facility] Phone Number [facility] CLIA: [id number], [address] [place] [address] C4 COMPLEMENT (04/18/2019 4:46 AM CDT) C4 17 (L) 20 - 59 mg/dL [facility] Specimen Blood - VENOUS Performing Organization Address [facility] Phone Number [facility] CLIA: [id number], [address] [place] [address] [facility] C3 COMPLEMENT (04/18/2019 4:46 AM CDT) C3 52 (L) 86 - 184 mg/dL [facility] Specimen Blood - VENOUS Performing Organization Address [facility] Phone Number [facility] CLIA: [id number], [address] [place] [address] [phone] [facility] COMPLEMENT CH50, TOTAL (04/18/2019 4:46 AM CDT) CH50 41 (L) 60 - 144 [facility] Comment: Units If low CH50 value is unexpected or does not correlate with the patient's clinical condition, repeat analysis with a fresh frozen serum sample is suggested for verification. INTERPRETIVE INFORMATION: Complement Activity, Total EIA 59 CAEUnits or less .......... Low 60-144CAE Units .............. Normal 145 Units or greater ....... High Performed by [employer], [address] [place], [place] [id number] [email or web address], Александр Hayden MD, Lab. Director Specimen Blood - VENOUS Performing Organization Address [facility] Phone Number [facility] [address] [place] [address] HEPATIC FUNCTION PANEL ([id number]) (ALB,T.PRO,BILI T,BU/BC,ALT,AST,ALK PHOS) (2018 4:46 AM CDT) TOTAL BILI 1.1 0.1 - 1.1 mg/dL [facility] BILI UNCON 0.9 0.1 - 1.1 mg/dL [facility] BILI CONJ 0.0 0.0 - 0.3 mg/dL [facility] T PROTEIN 5.7 (L) 6.3 - 8.2 g/dL [facility] ALBUMIN 2.8 (L) 3.5 - 5.0 g/dL [facility] ALK PHOS 50 34 - 122 U/L [facility] ALT(SGPT) 28 9 - 51 U/L [facility] AST(SGOT) 26 13 - 40 U/L [facility] Specimen Blood - VENOUS Performing Organization Address City/State/Zipcode Phone Number [facility] CLIA: [id number], [address] [place] [address] PROCALCITONIN (04/18/2019 4:46 AM CDT) Procalcitonin 0.13 (H) <0.07 ng/mL [facility] Specimen Blood - VENOUS Narrative Performed At INTERPRETATION OF PROCALCITONIN RESULTS IN ADULTS >=18 YEARS [facility] OF AGE Initiation and discontinuation of antibiotics on patients with suspected or confirmed Lower Respiratory Tract Infection in Adults >=18 years of age. + + + + + |Procalcitonin |Interpretation|Antibiotic |Considerations |ng/mL ||recommendation | + + + + + | <0.1 | Bacterial| Strongly| || infection very | discouraged | Overruling: || unlikely | | Clinically unstable + + + + High risk for adverse | <0.25| Bacterial| Discouraged | outcome || infection| | SEE IMPORTANT NOTE || unlikely | | + + + + + | >=0.25 | Bacterial| Encouraged| || infection| | || likely | | Consider treatment failure + + + + if levels does not decrease | >0.5 | Bacterial| Strongly| appropriately || infection very | encouraged| || likely | | + + + + + Discontinuation of antibiotics in high-acuity patients with suspected or confirmed sepsis in Adults >=18 years of age. + + + + + |Procalcitonin |Interpretation|Antibiotic |Considerations |ng/mL ||recommendation | + + + + + | <0.25| Bacterial| Strongly| || infection very | discouraged | Overruling: || unlikely | | Clinically unstable + + + + High risk for adverse | <0.5 or drop | Bacterial| Discouraged | outcome | >80% from| infection| | SEE IMPORTANT NOTE | highest PCT| unlikely | | | level|| | + + + + + | >=0.5| Bacterial| Encouraged| || infection| | || likely | | Consider treatment failure + + + + if levels does not decrease | >1.0 | Bacterial| Strongly| appropriately || infection very | encouraged| || likely | | + + + + + Percentage of drop of Procalcitonin calculation for Discontinuation of antibiotics in high-acuity patients with suspected or confirmed sepsis in Adults >=18 years of age. Procalcitonin highest{}-Procalcitonin current{} Delta Procalcitonin= _ x100% Procalcitonin current {} IMPORTANT NOTE: Procalcitonin may be elevated without bacterial infection by physiologic stress related to trauma, kovacs, chronic dialysis, metastatic cancer, surgery in the past seven days, malaria, some fungal infections, and some forms of vasculitis. The interpretation algorithm may not apply to patients with immunosuppression (equivalent of >10 mg of prednisone daily), HIV with CD4 cell count < 350 cells/mm3, active malignancy on systemic chemotherapy, solid organ transplant or hematopoietic stem cell transplantation, or hospital acquired pneumonia. Additionally, some clinical trials of procalcitonin have excluded patients with shock requiring vasopressor use, acute respiratory failure requiring mechanical ventilation, or those with known lung abscess/empyema. For further information please refer to: [email or web address] Performing Organization Address City/State/Zipcode Phone Number [facility] CLIA: [id number], [address] [place] [address] [facility] BASIC METABOLIC PANEL (NA, K, CL, CO2, GLUCOSE, BUN, CREATININE, CA) (2018 4:46 AM CDT) NA 133 (L) 135 - 145 [facility] mmol/L [facility] LABORATORY K 3.8 3.5 - 5.0 [facility] mmol/L [facility] LABORATORY CL 99 98 - 108 mmol/L [facility] CO2 TOTAL 24 23 - 31 mmol/L [facility] AGAP 10 2 - 16 [facility] BUN 48 (H) 7 - 23 mg/dL [facility] GLUCOSE 81 70 - 110 mg/dL [facility] CREATININE 3.51 (H) 0.50 - 1.04 [facility] mg/dL [facility] LABORATORY CALCIUM 8.2 (L) 8.6 - 10.6 [facility] mg/dL HOSPITAL LABORATORY eGFR Calculation 12.6 mL/min/1.73m2 [facility] ([facility] LABORATORY [place]ian) eGFR Calculation 15.3 mL/min/1.73m2 [facility] LABORATORY Specimen Blood - VENOUS Narrative Performed At Association of Glomerular Filtration Rate (GFR) [facility] and Staging of Kidney Disease* + + +- + | GFR (mL/min/1.73 m2)| With Kidney Damage|Without Kidney Damage + + +- + |>90| Stage one| Normal + + +- + |60-89|S tage two| Decreased GFR + + +- + |30-59|S tage three| Stage three + + +- + |15-29|S tage four | Stage four + + +- + |<15 (or dialysis)|Stage five | Stage five + + +- + *Each stage assumes the associated GFR level has been in effect for at least three months.Stages 1 to 5, with or without kidney disease, indicate chronic kidney disease. Notes: Determination of stages one and two (with eGFR >59mL/min/1.73 m2) requires estimation of kidney damage for at least three months as defined by structural or functional abnormalities of the kidney, manifested by either: Pathological abnormalities or Markers of kidney damage (including abnormalities in the composition of the blood or urine or abnormalities in imaging tests). Performing Organization Address [facility] Phone Number [facility] CLIA: [id number], [address] [place] [address] POCT GLUCOSE (AUTOMATED) (04/17/2019 11:55 PM CDT) POCT GLU 101 70 - 110 mg/dL [facility]OR[facility] Specimen Blood Performing Organization Address [facility] Phone Number [facility] CLIA: [id number], [address] [place] [address] POCT GLUCOSE (AUTOMATED) (04/17/2019 7:39 PM CDT) POCT GLU 101 70 - 110 mg/dL [facility] Specimen Blood Performing Organization Address [facility] Phone Number [facility] CLIA: [id number], [address] [place] [address] POCT GLUCOSE (AUTOMATED) (04/17/2019 3:59 PM CDT) POCT GLU 109 70 - 110 mg/dL [facility] Specimen Blood Performing Organization Address [facility] Phone Number [facility] CLIA: [id number], [address] [place] [address] [address] OCCULT (GUAIAC) BLOOD (04/17/2019 1:36 PM CDT) Occult (guaiac) Positive (A) Negative [facility] LABOR[facility] Blood SERVICES Specimen Stool - ANAL Performing Organization Address City/State/Zipcode Phone Number [facility] CLIA: [id number], [address] [place] [address] [phone] [facility] POCT GLUCOSE (AUTOMATED) (04/17/2019 11:38 AM CDT) Pathologist [facility] POCT GLU 116 (H) 70 - 110 mg/dL [facility] Specimen Blood Performing Organization Address City/[facility]/Zipcode Phone Number [facility] CLIA: [id number], [address] [place] [address] POCT GLUCOSE (AUTOMATED) (04/17/2019 7:48 AM CDT) [facility] POCT GLU 111 (H) 70 - 110 mg/dL [facility] Specimen Blood Performing Organization Address City/[facility] [facility] Phone Number [facility] CLIA: [id number], [address] [place] [address] CBC WITH DIFFERENTIAL (04/17/2019 5:22 AM CDT) [facility] WBC 13.39 (H) 4.30 - 11.10 [facility] 10*3/L [facility]ORAT[facility] RBC 2.59 (L) 3.93 - 5.25 [facility] 10*6/L [facility]ORY HGB 8.8 (L) 11.6 - 15.0 [facility] g/dL [facility] HCT 24.5 (L) 35.7 - 45.2 % [facility] MCV 94.6 80.6 - 95.5 fL [facility] MCH 34.0 (H) 25.9 - 32.8 pg [facility] MCHC 35.9 (H) 31.6 - 35.1 [facility] g/dL [facility] RDW-SD 52.5 (H) 39.0 - 49.9 fL [facility] RDW-CV 15.4 12.0 - 15.5 % [facility] PLT 80 (L) 166 - 358 [facility] 10*3/L HOSPITAL LABORATORY MPV 11.8 9.5 - 12.9 fL [facility] NRBC/100 WBC 3.1 0.0 - 10.0 /100 [facility] WBCs [facility] NRBC x10^3 0.41 10*3/L [facility] GRAN MAT (NEUT) % 76.5 % [facility] IMM GRAN % 1.30 % [facility] LYMPH % 8.9 % [facility] MONO % 13.2 % [facility] EOS % 0.0 % [facility] BASO % 0.1 % [facility] GRAN MAT x10^3(ANC) 10.25 (H) 1.88 - 7.09 [facility] 10*3/uL [facility] LABORATORY IMM GRAN x10^3 0.17 (H) 0.00 - 0.06 [facility] 10*3/uL [facility] LABORATORY LYMPH x10^3 1.19 (L) 1.32 - 3.29 [facility] 10*3/uL [facility] LABORATORY MONO x10^3 1.77 (H) 0.33 - 0.92 [facility] 10*3/uL [facility] LAB[facility] EOS x10^3 <0.03 (L) 0.03 - 0.39 [facility] 10*3/uL [facility] LABORATORY BASO x10^3 <0.03 0.01 - 0.[address]uL [facility] LABORATORY Specimen Blood - HAND, RIGHT Performing Organization Address City/State/Zipcode Phone Number [facility] CLIA: [id number], [address] [place] [address] BASIC METABOLIC PANEL (NA, K, CL, CO2, GLUCOSE, BUN, CREATININE, CA) (2018 5:22 AM CDT) NA 135 135 - 145 [facility] mmol/L [facility] K 4.1 3.5 - 5.0 [facility] mmol/L [facility] CL 101 98 - 108 mmol/L [facility] CO2 TOTAL 27 23 - 31 mmol/L [facility] AGAP 7 2 - 16 [facility] BUN 41 (H) 7 - 23 mg/dL [facility] GLUCOSE 104 70 - 110 mg/dL [facility] CREATININE 2.89 (H) 0.50 - 1.04 [facility] mg/dL [facility] LAB[facility]ORY CALCIUM 8.3 (L) 8.6 - 10.6 [facility] mg/dL [facility] LABORATORY eGFR Calculation 15.8 mL/min/1.73m2 [facility] ([facility] LABORATORY Jordanian) eGFR Calculation 19.1 mL/min/1.73m2 [facility] () [facility] LABORATORY Specimen Blood - HAND, RIGHT Narrative Performed At Association of Glomerular Filtration Rate (GFR) [facility] LABORATORY and Staging of Kidney Disease* + + +- + | GFR (mL/min/1.73 m2)| With Kidney Damage|Without Kidney Damage + + +- + |>90| Stage one| Normal + + +- + |60-89|S tage two| Decreased GFR + + +- + |30-59|S tage three| Stage three + + +- + |15-29|S tage four | Stage four + + +- + |<15 (or dialysis)|Stage five | Stage five + + +- + *Each stage assumes the associated GFR level has been in effect for at least three months.Stages 1 to 5, with or without kidney disease, indicate chronic kidney disease. Notes: Determination of stages one and two (with eGFR >59mL/min/1.73 m2) requires estimation of kidney damage for at least three months as defined by structural or functional abnormalities of the kidney, manifested by either: Pathological abnormalities or Markers of kidney damage (including abnormalities in the composition of the blood or urine or abnormalities in imaging tests). Performing Organization Address City/[facility] Phone Number [facility] CLIA: [id number], [address] [place] [address] POCT GLUCOSE (AUTOMATED) (04/17/2019 5:04 AM CDT) POCT GLU 102 70 - 110 mg/dL [facility] LABOR[facility] Specimen Blood Performing Organization Address [facility] Phone Number [facility] CLIA: [id number], [address] [place] [address] POCT GLUCOSE (AUTOMATED) (04/17/2019 4:40 AM CDT) POCT GLU 58 (L) 70 - 110 mg/dL [facility] LABOR[facility] Specimen Blood Performing Organization Address City/[facility] Phone Number [facility] CLIA: [id number], [address] [place] [address] POCT GLUCOSE (AUTOMATED) (04/17/2019 12:19 AM CDT) POCT GLU 99 70 - 110 mg/dL [facility] Specimen Blood Performing Organization Address City/[facility] Phone Number [facility] CLIA: [id number], [address] [place] [address] POCT GLUCOSE (AUTOMATED) (04/16/2019 8:13 PM CDT) POCT GLU 95 70 - 110 mg/dL [facility] LABOR[facility] Specimen Blood Performing Organization Address [facility] Phone Number [facility] CLIA: [id number], [address] [place] [address] POCT GLUCOSE (AUTOMATED) (04/16/2019 4:19 PM CDT) POCT GLU 122 (H) 70 - 110 mg/dL [facility] Specimen Blood Performing Organization Address [facility] Phone Number [facility] CLIA: [id number], [address] [place] [address] POCT GLUCOSE (AUTOMATED) (04/16/2019 11:45 AM CDT) POCT GLU 114 (H) 70 - 110 mg/dL [facility] LABOR[facility] Specimen Blood Performing Organization Address [facility] Phone Number [facility] CLIA: [id number], [address] [place] [address] POCT GLUCOSE (AUTOMATED) (04/16/2019 10:03 AM CDT) POCT GLU 125 (H) 70 - 110 mg/dL [facility]OR[facility] Specimen Blood Performing Organization Address [facility] Phone Number [facility] CLIA: [id number], [address] [place] [address] POCT GLUCOSE (AUTOMATED) (04/16/2019 7:43 AM CDT) POCT GLU 121 (H) 70 - 110 mg/dL [facility] LABOR[facility] Specimen Blood Performing Organization Address City/[facility]/Zipcode Phone Number [facility] CLIA: [id number], [address] [place] [address] POCT GLUCOSE (AUTOMATED) (04/16/2019 6:23 AM CDT) Pathologist [facility] POCT GLU 132 (H) 70 - 110 mg/dL [facility] LABORAT[facility] Specimen Blood Performing Organization Address City/[facility] Phone Number [facility] CLIA: [id number], [address] [place] [address] CBC WITH DIFFERENTIAL (04/16/2019 4:34 AM CDT) [facility] WBC 11.10 4.30 - 11.10 [facility] 10*3/L [facility] LABORATORY RBC 2.41 (L) 3.93 - 5.25 [facility] 10*6/L [facility] LABORATORY HGB 8.1 (L) 11.6 - 15.0 [facility] g/dL [facility] LABORATORY HCT 22.6 (L) 35.7 - 45.2 % [facility] MCV 93.8 80.6 - 95.5 fL [facility] MCH 33.6 (H) 25.9 - 32.8 pg [facility] MCHC 35.8 (H) 31.6 - 35.1 [facility] g/dL [facility] LAB[facility] RDW-SD 49.7 39.0 - 49.9 fL [facility] RDW-CV 14.9 12.0 - 15.5 % [facility]OR[facility] PLT 90 (L) 166 - 358 [facility] 10*3/L [facility] LAB[facility]AT[facility] MPV 11.7 9.5 - 12.9 fL [facility] NRBC/100 WBC 0.7 0.0 - 10.0 /100 [facility] WBCs [facility]AT[facility] NRBC x10^3 0.08 10*3/L [facility] GRAN MAT (NEUT) % 82.0 % [facility] IMM GRAN % 0.80 % [facility] LYMPH % 7.8 % [facility] MONO % 9.3 % [facility] EOS % 0.0 % [facility] BASO % 0.1 % [facility] GRAN MAT x10^3(ANC) 9.10 (H) 1.88 - 7.09 [facility] 10*3/uL [facility] LABORATORY IMM GRAN x10^3 0.09 (H) 0.00 - 0.06 [facility] 10*3/uL [facility] LABORATORY LYMPH x10^3 0.87 (L) 1.32 - 3.29 [facility] 10*3/uL [facility] LABORAT[facility] MONO x10^3 1.03 (H) 0.33 - 0.92 [facility] 10*3/uL [facility] LAB[facility] EOS x10^3 <0.03 (L) 0.03 - 0.[address] [facility] LAB[facility]AT[facility] BASO x10^3 <0.03 0.01 - 0.07 [address] [facility] LABORATORY Specimen Blood - LINE, VENOUS Performing Organization Address [facility] Phone Number [facility] CLIA: [id number], [address] [place] [address] N-TERMINAL PRO-BNP (04/16/2019 4:34 AM CDT) NT-proBNP 2,330 (H) <=450 pg/mL [facility] LABOR[facility] Specimen Blood - LINE, VENOUS Narrative Performed At Biotin has been reported to cause a negative [facility] LABOR[facility] bias, interpret results relative to patient's use of biotin. Performing Organization Address [facility] Phone Number [facility] CLIA: [id number], [address] [place], [place] [address] LABOR[address] MAGNESIUM (04/16/2019 4:34 AM CDT) MAGNESIUM 2.0 1.7 - 2.4 mg/dL [facility] LABOR[facility] Specimen Blood - LINE, VENOUS Performing Organization Address [facility] Phone Number [facility] CLIA: [id number], [address] [place] [address] PHOSPHORUS (04/16/2019 4:34 AM CDT) PHOSPHORUS 4.0 2.5 - 5.0 mg/dL [facility] LABOR[facility] Specimen Blood - LINE, VENOUS Performing Organization Address City/State/Zipcode Phone Number [facility] CLIA: [id number], [address] [place] [address] COMP. METABOLIC PANEL ([id number]) (04/16/2019 4:34 AM CDT) NA 136 135 - 145 [facility] mmol/L [facility] LABORAT[facility] K 4.1 3.5 - 5.0 [facility] mmol/L [facility] CL 103 98 - 108 mmol/L [facility] CO2 TOTAL 25 23 - 31 mmol/L [facility] AGAP 8 2 - 16 [facility] BUN 55 (H) 7 - 23 mg/dL [facility] GLUCOSE 139 (H) 70 - 110 mg/dL [facility] CREATININE 3.35 (H) 0.50 - 1.04 [facility] mg/dL [facility] TOTAL BILI 1.0 0.1 - 1.1 mg/dL [facility] CALCIUM 8.2 (L) 8.6 - 10.6 [facility] mg/dL [facility] LAB[facility] T PROTEIN 5.6 (L) 6.3 - 8.2 g/dL [facility] ALBUMIN 2.6 (L) 3.5 - 5.0 g/dL [facility] ALK PHOS 48 34 - 122 U/L [facility] ALT(SGPT) 34 9 - 51 U/L [facility] AST(SGOT) 32 13 - 40 U/L [facility] eGFR Calculation 13.3 mL/min/1.73m2 [facility] ([facility] LABORATORY [place]ian) eGFR Calculation 16.1 mL/min/1.73m2 [facility] ([facility]) [facility] LABOR[facility] Specimen Blood - LINE, VENOUS Narrative Performed At Association of Glomerular Filtration Rate (GFR) [facility] and Staging of Kidney Disease* + + +- + | GFR (mL/min/1.73 m2)| With Kidney Damage|Without Kidney Damage + + +- + |>90| Stage one| Normal + + +- + |60-89|S tage two| Decreased GFR + + +- + |30-59|S tage three| Stage three + + +- + |15-29|S tage four | Stage four + + +- + |<15 (or dialysis)|Stage five | Stage five + + +- + *Each stage assumes the associated GFR level has been in effect for at least three months.Stages 1 to 5, with or without kidney disease, indicate chronic kidney disease. Notes: Determination of stages one and two (with eGFR >59mL/min/1.73 m2) requires estimation of kidney damage for at least three months as defined by structural or functional abnormalities of the kidney, manifested by either: Pathological abnormalities or Markers of kidney damage (including abnormalities in the composition of the blood or urine or abnormalities in imaging tests). Performing Organization Address City/[facility] Phone Number [facility] CLIA: [id number], [address] [place] [address] URIC ACID (04/16/2019 4:34 AM CDT) URIC ACID 6.1 (H) 2.9 - 6.0 mg/dL [facility] Specimen Blood - LINE, VENOUS Performing Organization Address [facility] Number [facility] CLIA: [id number], [address] [place] [address] POCT GLUCOSE (AUTOMATED) (04/16/2019 4:29 AM CDT) POCT GLU 151 (H) 70 - 110 mg/dL [facility] Specimen Blood Narrative Performed At Notified Provider [facility] Performing Organization Address [facility] Number [facility] CLIA: [id number], [address] [place] [address] POCT GLUCOSE (AUTOMATED) (04/16/2019 2:05 AM CDT) POCT GLU 120 (H) 70 - 110 mg/dL [facility] Specimen Blood Narrative Performed At Notified Provider [facility] Performing Organization Address [facility] Phone Number [facility] CLIA: [id number], [address] [place] [address] POCT GLUCOSE (AUTOMATED) (04/16/2019 12:07 AM CDT) POCT GLU 121 (H) 70 - 110 mg/dL [facility] Specimen Blood Narrative Performed At Notified Provider [facility] Performing Organization Address [facility]/Zipcode Phone Number [facility] CLIA: [id number], [address] [place] [address] POCT GLUCOSE (AUTOMATED) (04/15/2019 10:10 PM CDT) POCT GLU 112 (H) 70 - 110 mg/dL [facility] Specimen Blood Narrative Performed At Notified Provider [facility] Performing Organization Address [facility] Phone Number [facility] CLIA: [id number], [address] [place] [address] POCT GLUCOSE (AUTOMATED) (04/15/2019 8:09 PM CDT) POCT GLU 148 (H) 70 - 110 mg/dL [facility] Specimen Blood Narrative Performed At Notified Provider [facility] Performing Organization Address [facility] Phone Number [facility] CLIA: [id number], [address] [place] [address] POCT GLUCOSE (AUTOMATED) (04/15/2019 5:58 PM CDT) POCT GLU 111 (H) 70 - 110 mg/dL [facility] Specimen Blood Performing Organization Address [facility] Phone Number [facility] CLIA: [id number], [address] [place] [address] POCT GLUCOSE (AUTOMATED) (04/15/2019 4:09 PM CDT) POCT GLU 105 70 - 110 mg/dL [facility] Specimen Blood Performing Organization Address [facility] Phone Number [facility] CLIA: [id number], [address] [place] [address] Abdominal 1 View - To confirm nasogastric tube placement. (04/15/2019 3:25 PM CDT) Specimen Narrative Performed At HISTORY: Dobbhoff tube verification. PACS/VR/DOSE FINDINGS: Portable AP supine view of the abdomen showed Dobbhoff tube with its distal metallic weighted end in the upper body near the fundus of the stomach. Compared with the earlier study, Dobbhoff tube appears to have been pulled slightly out rather than pushing it in. Procedure Note [facility], Radiant Results Inft User - 04/15/2019 3:29 PM CDT HISTORY: Dobbhoff tube verification. FINDINGS: Portable AP supine view of the abdomen showed Dobbhoff tube with its distal metallic weighted end in the upper body near the fundus of the stomach. Compared with the earlier study, Dobbhoff tube appears to have been pulled slightly out rather than pushing it in. Performing Organization Address [facility] Phone Number PACS/VR/DOSE XR ABDOMEN 1 VW (04/15/2019 2:00 PM CDT) Specimen Narrative Performed At HISTORY: Dobbhoff tube position. PACS/VR/DOSE FINDINGS: Portable AP supine view of the abdomen is obtained and compared with earlier study done at 1:23 PM. There is no significant change in the position of Dobbhoff tube since the earlier study. Procedure Note [facility], Radiant Results Inft User - 04/15/2019 2:02 PM CDT HISTORY: Dobbhoff tube position. FINDINGS: Portable AP supine view of the abdomen is obtained and compared with earlier study done at 1:23 PM. There is no significant change in the position of Dobbhoff tube since the earlier study. Performing Organization Address [facility] Phone Number PACS/VR/DOSE Abdominal 1 View - To confirm Dobhoff / Small-bore (non-styleted) enteral feeding tube placement. (04/15/2019 1:30 PM CDT) Specimen Narrative Performed At HISTORY: Dobbhoff tube placement. PACS/VR/DOSE FINDINGS: 2 abdominal images were obtained with portable technique which showed Dobbhoff tube with its metallic weighted end in the upper body of the stomach. Dobbhoff tube should be pushed in by additional 6 to 8 in. Intestinal gas pattern is unremarkable. Cholecystectomy noted. Fracture of L1 and L2 vertebral bodies noted with mild sclerosis in the lower two thirds of L1 vertebral body. Fracture also noted in the upper plate of L4. Fractures are probably remote. Procedure Note [facility], Radiant Results Inft User - 04/15/2019 1:34 PM CDT HISTORY: Dobbhoff tube placement. FINDINGS: 2 abdominal images were obtained with portable technique which showed Dobbhoff tube with its metallic weighted end in the upper body of the stomach. Dobbhoff tube should be pushed in by additional 6 to 8 in. Intestinal gas pattern is unremarkable. Cholecystectomy noted. Fracture of L1 and L2 vertebral bodies noted with mild sclerosis in the lower two thirds of L1 vertebral body. Fracture also noted in the upper plate of L4. Fractures are probably remote. Performing Organization Address City/State/Zipcode Phone Number PACS/VR/DOSE POCT GLUCOSE (AUTOMATED) (04/15/2019 11:51 AM CDT) POCT GLU 112 (H) 70 - 110 mg/dL [facility] Specimen Blood Performing Organization Address [facility] Phone Number [facility] CLIA: [id number], [address] [place] [address] POCT GLUCOSE (AUTOMATED) (04/15/2019 10:03 AM CDT) POCT GLU 95 70 - 110 mg/dL [facility] Specimen Blood Performing Organization Address [facility] Phone Number [facility] CLIA: [id number], [address] [place] [address] COMP. METABOLIC PANEL ([id number]) (04/15/2019 7:47 AM CDT) NA 137 135 - 145 [facility] mmol/L [facility]ORAT[facility] K 4.5 3.5 - 5.0 [facility] mmol/L [facility] CL 107 98 - 108 mmol/L [facility] CO2 TOTAL 19 (L) 23 - 31 mmol/L [facility] AGAP 11 2 - 16 [facility] BUN 72 (H) 7 - 23 mg/dL [facility] GLUCOSE 114 (H) 70 - 110 mg/dL [facility] CREATININE 4.02 (H) 0.50 - 1.04 [facility] mg/dL [facility] TOTAL BILI 0.8 0.1 - 1.1 mg/dL [facility] CALCIUM 8.7 8.6 - 10.6 [facility] mg/dL [facility] T PROTEIN 5.6 (L) 6.3 - 8.2 g/dL [facility] ALBUMIN 2.7 (L) 3.5 - 5.0 g/dL [facility] ALK PHOS 48 34 - 122 U/L [facility] ALT(SGPT) 37 9 - 51 U/L [facility] AST(SGOT) 30 13 - 40 U/L [facility] eGFR Calculation 10.8 mL/min/1.73m2 [facility] ([facility] LABORATORY [place]ian) eGFR Calculation 13.0 mL/min/1.73m2 [facility] () [facility] Specimen Blood - VENOUS Narrative Performed At Association of Glomerular Filtration Rate (GFR) [facility] and Staging of Kidney Disease* + + +- + | GFR (mL/min/1.73 m2)| With Kidney Damage|Without Kidney Damage + + +- + |>90| Stage one| Normal + + +- + |60-89|S tage two| Decreased GFR + + +- + |30-59|S tage three| Stage three + + +- + |15-29|S tage four | Stage four + + +- + |<15 (or dialysis)|Stage five | Stage five + + +- + *Each stage assumes the associated GFR level has been in effect for at least three months.Stages 1 to 5, with or without kidney disease, indicate chronic kidney disease. Notes: Determination of stages one and two (with eGFR >59mL/min/1.73 m2) requires estimation of kidney damage for at least three months as defined by structural or functional abnormalities of the kidney, manifested by either: Pathological abnormalities or Markers of kidney damage (including abnormalities in the composition of the blood or urine or abnormalities in imaging tests). Performing Organization Address [facility] Phone Number [facility] CLIA: [id number], [address] [place] [address] POCT GLUCOSE (AUTOMATED) (04/15/2019 7:46 AM CDT) POCT GLU 114 (H) 70 - 110 mg/dL [facility] Specimen Blood Performing Organization Address [facility] Phone Number [facility] CLIA: [id number], [address] [place], [place] [address] LABORAT[address] URIC ACID (04/15/2019 6:20 AM CDT) URIC ACID 5.8 2.9 - 6.0 mg/dL [facility] Specimen Blood - VENOUS Performing Organization Address [facility] Phone Number [facility] CLIA: [id number], [address] [place] [address] N-TERMINAL PRO-BNP (04/15/2019 6:20 AM CDT) NT-proBNP 2,140 (H) <=450 pg/mL [facility] Specimen Blood - VENOUS Narrative Performed At Biotin has been reported to cause a negative [facility] bias, interpret results relative to patient's use of biotin. Performing Organization Address City/[facility] Phone Number [facility] CLIA: [id number], [address] [place] [address] PHOSPHORUS (04/15/2019 6:20 AM CDT) PHOSPHORUS 3.9 2.5 - 5.0 mg/dL [facility] Specimen Blood - VENOUS Performing Organization Address [facility] Phone Number [facility] CLIA: [id number], [address] [place] [address] MAGNESIUM (04/15/2019 6:20 AM CDT) Pathologist [facility] MAGNESIUM 1.4 (L) 1.7 - 2.4 mg/dL [facility] Specimen Blood - VENOUS Performing Organization Address [facility] Phone Number [facility] CLIA: [id number], [address] [place] [address] POCT GLUCOSE (AUTOMATED) (04/15/2019 4:22 AM CDT) Pathologist [facility] POCT GLU 96 70 - 110 mg/dL [facility] Specimen Blood Performing Organization Address [facility] Phone Number [facility] CLIA: [id number], [address] [place] [address] CBC WITH DIFFERENTIAL (04/15/2019 4:14 AM CDT) WBC 17.82 (H) 4.30 - 11.10 [facility] 10*3/L [facility] LABORATORY RBC 2.67 (L) 3.93 - 5.25 [facility] 10*6/L [facility] LAB[facility] HGB 9.2 (L) 11.6 - 15.0 [facility] g/dL [facility] HCT 25.0 (L) 35.7 - 45.2 % [facility] MCV 93.6 80.6 - 95.5 fL [facility] MCH 34.5 (H) 25.9 - 32.8 pg [facility] MCHC 36.8 (H) 31.6 - 35.1 [facility] g/dL [facility] LAB[facility]ORY RDW-SD 51.6 (H) 39.0 - 49.9 fL [facility] RDW-CV 15.3 12.0 - 15.5 % [facility] LABOR[facility] PLT 144 (L) 166 - 358 [facility] 10*3/L [facility] MPV 12.7 9.5 - 12.9 fL [facility] NRBC/100 WBC 0.7 0.0 - 10.0 /100 [facility] WBCs [facility] LAB[facility] NRBC x10^3 0.13 10*3/L [facility] GRAN MAT (NEUT) % 83.3 % [facility] IMM GRAN % 0.70 % [facility] LYMPH % 7.3 % [facility] MONO % 8.6 % [facility] EOS % 0.0 % [facility] BASO % 0.1 % [facility] GRAN MAT x10^3(ANC) 14.84 (H) 1.88 - 7.09 [facility] 10*3/uL [facility] LABORATORY IMM GRAN x10^3 0.13 (H) 0.00 - 0.06 [facility] 10*3/uL [facility] LABORATORY LYMPH x10^3 1.30 (L) 1.32 - 3.29 [facility] 10*3/uL HOSPITAL LABORATORY MONO x10^3 1.54 (H) 0.33 - 0.92 [facility] 10*3/uL [facility] LAB[facility]ORY EOS x10^3 <0.03 (L) 0.03 - 0.39 [facility] 10*3/uL [facility] LABOR[facility]ORY BASO x10^3 <0.03 0.01 - 0.07 [facility] 10*3/uL [facility] LABORATORY Specimen Blood - VENOUS Performing Organization Address City/State/Zipcode Phone Number [facility] CLIA: [id number], [address] [place] [address] POCT GLUCOSE (AUTOMATED) (04/15/2019 12:10 AM CDT) POCT GLU 95 70 - 110 mg/dL [facility] Specimen Blood Performing Organization Address [facility] Phone Number [facility] CLIA: [id number], [address] [place] [address] POCT GLUCOSE (AUTOMATED) (04/14/2019 8:12 PM CDT) POCT GLU 131 (H) 70 - 110 mg/dL [facility] Specimen Blood Performing Organization Address [facility] Phone Number [facility] CLIA: [id number], [address] [place] [address] POCT GLUCOSE (AUTOMATED) (04/14/2019 3:46 PM CDT) POCT GLU 95 70 - 110 mg/dL [facility] Specimen Blood Performing Organization Address [facility] Phone Number [facility] CLIA: [id number], [address] [place] [address] XR CHEST 1 VW (04/14/2019 2:25 PM CDT) Specimen Narrative Performed At HISTORY: Dialysis permacath placement. PACS/VR/DOSE TECHNIQUE: Portable AP supine view of the chest is obtained. Comparison made with 04/13/2019 study. FINDINGS: Double lumen dialysis Tessio type catheters noted inserted through right internal jugular with the tips located at mid and distal SVC near cavoatrial junction. No acute pneumonia. No pneumothorax or pleural effusion or pulmonary congestion detected. Cardiac size is within normal limits. CONCLUSIONS: No signs of acute cardiopulmonary disease. Procedure Note [facility], Radiant Results Inft User - 04/14/2019 2:27 PM CDT HISTORY: Dialysis permacath placement. TECHNIQUE: Portable AP supine view of the chest is obtained. Comparison made with 04/13/2019 study. FINDINGS: Double lumen dialysis Tessio type catheters noted inserted through right internal jugular with the tips located at mid and distal SVC near cavoatrial junction. No acute pneumonia. No pneumothorax or pleural effusion or pulmonary congestion detected. Cardiac size is within normal limits. CONCLUSIONS: No signs of acute cardiopulmonary disease. Performing Organization Address City/[facility] Phone Number PACS/VR/DOSE FL TIME OR (NON-REPORTABLE) (04/14/2019 1:16 PM CDT) Specimen Narrative Performed At These images do not require a Radiology diagnostic report. PACS Performing Organization Address City/State/Zipcode Phone Number PACS BASIC METABOLIC PANEL (NA, K, CL, CO2, GLUCOSE, BUN, CREATININE, CA) (2018 10:10 AM CDT) NA 136 135 - 145 [facility] mmol/L [facility] K 4.6 3.5 - 5.0 [facility] mmol/L [facility] CL 107 98 - 108 mmol/L [facility] CO2 TOTAL 16 (L) 23 - 31 mmol/L [facility] AGAP 13 2 - 16 [facility] BUN 88 (H) 7 - 23 mg/dL [facility] GLUCOSE 152 (H) 70 - 110 mg/dL [facility] CREATININE 4.75 (H) 0.50 - 1.04 [facility] mg/dL [facility] LABORATORY CALCIUM 9.0 8.6 - 10.6 [facility] mg/dL [facility] LABORATORY eGFR Calculation 8.9 mL/min/1.73m2 [facility] ([facility] LABORATORY Jordanian) eGFR Calculation 10.8 mL/min/1.73m2 [facility] () [facility] LAB[facility] Specimen Blood - VENOUS Narrative Performed At Association of Glomerular Filtration Rate (GFR) [facility] and Staging of Kidney Disease* + + +- + | GFR (mL/min/1.73 m2)| With Kidney Damage|Without Kidney Damage + + +- + |>90| Stage one| Normal + + +- + |60-89|S tage two| Decreased GFR + + +- + |30-59|S tage three| Stage three + + +- + |15-29|S tage four | Stage four + + +- + |<15 (or dialysis)|Stage five | Stage five + + +- + *Each stage assumes the associated GFR level has been in effect for at least three months.Stages 1 to 5, with or without kidney disease, indicate chronic kidney disease. Notes: Determination of stages one and two (with eGFR >59mL/min/1.73 m2) requires estimation of kidney damage for at least three months as defined by structural or functional abnormalities of the kidney, manifested by either: Pathological abnormalities or Markers of kidney damage (including abnormalities in the composition of the blood or urine or abnormalities in imaging tests). Performing Organization Address City/[facility]/Zipcode Phone Number [facility] CLIA: [id number], [address] [place] [address] POCT GLUCOSE (AUTOMATED) (04/14/2019 8:09 AM CDT) POCT GLU 153 (H) 70 - 110 mg/dL [facility] Specimen Blood Performing Organization Address City/[facility] Phone Number [facility] CLIA: [id number], [address] [place] [address] POCT GLUCOSE (AUTOMATED) (04/14/2019 6:36 AM CDT) POCT GLU 124 (H) 70 - 110 mg/dL [facility] Specimen Blood Narrative Performed At Notified Provider [facility] Performing Organization Address City/[facility] Phone Number [facility] CLIA: [id number], [address] [place] [address] POCT GLUCOSE (AUTOMATED) (04/14/2019 5:06 AM CDT) POCT GLU 126 (H) 70 - 110 mg/dL [facility] Specimen Blood Performing Organization Address [facility] Phone Number [facility] CLIA: [id number], [address] [place] [address] BLOOD CULTURE SCREEN (04/14/2019 4:10 AM CDT) Blood No organisms isolated No growth [facility] Culture-Aerobic Comment: HOSPITAL Previous preliminary verified result was Culture In Progress on 04/14/2019 at [facility] CDT LABORATORY Previous preliminary verified result was No growth at 24 hours on 04/15/2019 at [facility] CDT Previous preliminary verified result was No growth at 48 hours on 04/16/2019 at [facility] CDT Previous preliminary verified result was No growth at 72 hours on 04/17/[address] [place], [place] [address]T Blood No organisms isolated No growth [facility] Culture-Anaerobic Comment: [facility] Previous preliminary verified result was Culture In Progress on 04/14/2019 at [facility] CDT LABORATORY Previous preliminary verified result was No growth at 24 hours on 04/15/2019 at [facility] CDT Previous preliminary verified result was No growth at 48 hours on 04/16/2019 at 0601 CDT Previous preliminary verified result was No growth at 72 hours on 04/17/2019 at 0601 CDT Specimen Blood - VENOUS Performing Organization Address [facility] Phone Number [facility] CLIA: [id number], [address] [place] [address] AMMONIA, PLASMA (04/14/2019 4:09 AM CDT) AMMONIA 25Comment: Slight 9 - 33 umol/L [facility] LABORATORY Specimen Blood - ARM, RIGHT Performing Organization Address [facility] Phone Number [facility] CLIA: [id number], [address] [place] [address] POCT GLUCOSE (AUTOMATED) (04/14/2019 2:09 AM CDT) POCT GLU 112 (H) 70 - 110 mg/dL [facility] Specimen Blood Narrative Performed At Notified Provider [facility] Performing Organization Address [facility] Phone Number [facility] CLIA: [id number], [address] [place] [address] POCT GLUCOSE (AUTOMATED) (04/13/2019 11:52 PM CDT) POCT GLU 97 70 - 110 mg/dL [facility] Specimen Blood Performing Organization Address [facility] Phone Number [facility] CLIA: [id number], [address] [place] [address] POCT GLUCOSE (AUTOMATED) (04/13/2019 9:10 PM CDT) POCT GLU 170 (H) 70 - 110 mg/dL [facility] Specimen Blood Performing Organization Address [facility] Phone Number [facility] CLIA: [id number], [address] [place] [address] US RETROPERITONEAL COMPLETE (04/13/2019 6:55 PM CDT) Specimen Impressions Performed At PACS/VR/DOSE Echogenic kidneys, compatible with medical renal disease. Rhea Velasquez MD., have reviewed this study and agree with the above report. Narrative Performed At RENAL ULTRASOUND PACS/VR/DOSE HISTORY: renal failure . TECHNIQUE: Survey ultrasound imaging of the retroperitoneum focused on the kidneys was performed with patient accounting representative images obtained. COMPARISON: None. FINDINGS: Evaluation is limited due to difficult patient positioning. RIGHT KIDNEY: Mildly increased echogenicity. Normal contour and size. The right kidney measures 9.4 x 3.6 x 4.0 cm (71.3 mL).No hydronephrosis. LEFT KIDNEY: Mildly increased echogenicity. Normal contour and size.The left kidney measures 9.5 x 4.6 x 4.0 cm (90.6 mL). No hydronephrosis. BLADDER: Unremarkable. Procedure Note [facility], Radiant Results Inft User - 04/13/2019 8:29 PM CDT RENAL ULTRASOUND HISTORY: renal failure . TECHNIQUE: Survey ultrasound imaging of the retroperitoneum focused on the kidneys was performed with patient accounting representative images obtained. COMPARISON: None. FINDINGS: Evaluation is limited due to difficult patient positioning. RIGHT KIDNEY: Mildly increased echogenicity. Normal contour and size. The right kidney measures 9.4 x 3.6 x 4.0 cm (71.3 mL). No hydronephrosis. LEFT KIDNEY: Mildly increased echogenicity. Normal contour and size. The left kidney measures 9.5 x 4.6 x 4.0 cm (90.6 mL). No hydronephrosis. BLADDER: Unremarkable. IMPRESSION Echogenic kidneys, compatible with medical renal disease. I, Randy Segal MD., have reviewed this study and agree with the above report. Performing Organization Address City/[facility]/Zipcode Phone Number PACS/VR/DOSE POCT GLUCOSE (AUTOMATED) (04/13/2019 4:49 PM CDT) POCT GLU 80 70 - 110 mg/dL [facility] Specimen Blood Performing Organization Address City/State/Zipcode Phone Number [facility] CLIA: [id number], [address] [place] [address] BLOOD CULTURE SCREEN (04/13/2019 4:42 PM CDT) Blood No organisms isolated No growth [facility] Culture-Aerobic Comment: HOSPITAL Previous preliminary verified result was Culture In Progress on 04/13/2019 at 2101 CDT LABORATORY Previous preliminary verified result was No growth at 24 hours on 04/14/2019 at 1802 CDT Previous preliminary verified result was No growth at 48 hours on 04/15/2019 at 1802 CDT Previous preliminary verified result was No growth at 72 hours on 04/16/2019 at 1804 CDT Blood No organisms isolated No growth [facility] Culture-Anaerobic Comment: HOSPITAL Previous preliminary verified result was Culture In Progress on 04/13/2019 at 2101 CDT LABORATORY Previous preliminary verified result was No growth at 24 hours on 04/14/2019 at 1802 CDT Previous preliminary verified result was No growth at 48 hours on 04/15/2019 at 1802 CDT Previous preliminary verified result was No growth at 72 hours on 04/16/2019 at 1804 CDT Specimen Blood - HAND, RIGHT Performing Organization Address City/State/Zipcode Phone Number [facility] CLIA: [id number], [address] [place] [address] PROCALCITONIN (04/13/2019 4:36 PM CDT) Procalcitonin 0.20 (H) <0.07 ng/mL [facility] Specimen Blood - VENOUS Narrative Performed At INTERPRETATION OF PROCALCITONIN RESULTS IN ADULTS >=18 YEARS [facility] OF AGE Initiation and discontinuation of antibiotics on patients with suspected or confirmed Lower Respiratory Tract Infection in Adults >=18 years of age. + + + + + |Procalcitonin |Interpretation|Antibiotic |Considerations |ng/mL ||recommendation | + + + + + | <0.1 | Bacterial| Strongly| || infection very | discouraged | Overruling: || unlikely | | Clinically unstable + + + + High risk for adverse | <0.25| Bacterial| Discouraged | outcome || infection| | SEE IMPORTANT NOTE || unlikely | | + + + + + | >=0.25 | Bacterial| Encouraged| || infection| | || likely | | Consider treatment failure + + + + if levels does not decrease | >0.5 | Bacterial| Strongly| appropriately || infection very | encouraged| || likely | | + + + + + Discontinuation of antibiotics in high-acuity patients with suspected or confirmed sepsis in Adults >=18 years of age. + + + + + |Procalcitonin |Interpretation|Antibiotic |Considerations |ng/mL ||recommendation | + + + + + | <0.25| Bacterial| Strongly| || infection very | discouraged | Overruling: || unlikely | | Clinically unstable + + + + High risk for adverse | <0.5 or drop | Bacterial| Discouraged | outcome | >80% from| infection| | SEE IMPORTANT NOTE | highest PCT| unlikely | | | level|| | + + + + + | >=0.5| Bacterial| Encouraged| || infection| | || likely | | Consider treatment failure + + + + if levels does not decrease | >1.0 | Bacterial| Strongly| appropriately || infection very | encouraged| || likely | | + + + + + Percentage of drop of Procalcitonin calculation for Discontinuation of antibiotics in high-acuity patients with suspected or confirmed sepsis in Adults >=18 years of age. Procalcitonin highest{}-Procalcitonin current{} Delta Procalcitonin= _ x100% Procalcitonin current {} IMPORTANT NOTE: Procalcitonin may be elevated without bacterial infection by physiologic stress related to trauma, kovacs, chronic dialysis, metastatic cancer, surgery in the past seven days, malaria, some fungal infections, and some forms of vasculitis. The interpretation algorithm may not apply to patients with immunosuppression (equivalent of >10 mg of prednisone daily), HIV with CD4 cell count < 350 cells/mm3, active malignancy on systemic chemotherapy, solid organ transplant or hematopoietic stem cell transplantation, or hospital acquired pneumonia. Additionally, some clinical trials of procalcitonin have excluded patients with shock requiring vasopressor use, acute respiratory failure requiring mechanical ventilation, or those with known lung abscess/empyema. For further information please refer to: [email or web address] Performing Organization Address City/[facility] Phone Number [facility] CLIA: [id number], [address] [place] [phone] [facility] MAGNESIUM (04/13/2019 4:36 PM CDT) MAGNESIUM 1.8 1.7 - 2.4 mg/dL [facility] Specimen Blood - VENOUS Performing Organization Address [facility] Phone Number [facility] CLIA: [id number], [address] [place] [address] [facility] N-TERMINAL PRO-BNP (04/13/2019 4:36 PM CDT) NT-proBNP 2,480 (H) <=450 pg/mL [facility] Specimen Blood - VENOUS Narrative Performed At Biotin has been reported to cause a negative bias, interpret [facility] results relative to patient's use of biotin. Performing Organization Address City/State/[facility] Phone Number [facility] CLIA: [id number], [address] [place] [address] [phone] [facility] FOLATE (04/13/2019 4:36 PM CDT) FOLATE SER 3.1 3.0 - 20.0 ng/mL [facility] Specimen Blood - VENOUS Performing Organization Address [facility] Phone Number [facility] CLIA: [id number], [address] [place] [phone] [facility] VITAMIN B12, LEVEL (04/13/2019 4:36 PM CDT) VIT B12 605 240 - 930 pg/mL [facility] Specimen Blood - VENOUS Narrative Performed At Biotin has been reported to cause a positive bias, interpret [facility] results relative to patient's use of biotin. Performing Organization Address City/State/[facility] Phone Number [facility] CLIA: [id number], [address] [place] [address] [facility] HEPATITIS B CORE ANTIBODY IGM (04/13/2019 4:36 PM CDT) HBCM NEGATIVE [facility] HBCM Semi-Quantitative 0.02 [facility] Specimen Blood - VENOUS Narrative Performed At [facility] has been reported to cause a negative bias, interpret [facility] results relative to patient's use of biotin. Performing Organization Address [facility] Phone Number [facility] CLIA: [id number], [address] [place] [address] [facility] HEPATITIS B SURFACE ANTIGEN (04/13/2019 4:36 PM CDT) HBsAg HEPATITIS B Negative [facility] SURFACE ANTIGEN SERVICES NEGATIVE HBsAg 0.06 [facility] Semi-Quantitative SERVICES Specimen Blood - VENOUS Performing Organization Address [facility] Phone Number [facility] CLIA: [id number], [address] [place] [phone] [facility] HEPATITIS B SURFACE ANTIBODY (04/13/2019 4:36 PM CDT) HBsAB Negative [facility] HBsAb 1.00 mIU/mL [facility] Semi-Quantitative SERVICES Specimen Blood - VENOUS Narrative Performed At Interpretation:Hepatitis B Surface Antibody [facility] Negative - Patient is considered to be not immune to infection with HBV. Positive - Anti-HBs detected at greater than or equal to 12 mIU/mL.Patient is considered to be immune to infection with HBV. Performing Organization Address City/[facility] Phone Number [facility] CLIA: [id number], [address] [place] [phone] [facility] POCT GLUCOSE (AUTOMATED) (04/13/2019 3:50 PM CDT) POCT GLU 92 70 - 110 mg/dL [facility] Specimen Blood Performing Organization Address [facility] Phone Number [facility] CLIA: [id number], [address] [place] [address] POCT GLUCOSE (AUTOMATED) (04/13/2019 3:01 PM CDT) POCT GLU 91 70 - 110 mg/dL [facility] Specimen Blood Performing Organization Address [facility] Phone Number [facility] CLIA: [id number], [address] [place] [address] URINE CULTURE (04/13/2019 2:47 PM CDT) URINE CULTURE > 100,000 CFU/mL mixed [facility] aerobic organisms - SERVICES suggests endogenous microbial contamination Specimen Urine - URINE, CATHETERIZED Performing Organization Address City/[facility] Phone Number [facility] CLIA: [id number], [address] [place] [phone] [facility] POCT GLUCOSE (AUTOMATED) (04/13/2019 1:54 PM CDT) POCT GLU 97 70 - 110 mg/dL [facility] Specimen Blood Performing Organization Address [facility] Phone Number [facility] CLIA: [id number], [address] [place] [address] POCT GLUCOSE (AUTOMATED) (04/13/2019 1:10 PM CDT) POCT GLU 113 (H) 70 - 110 mg/dL [facility] Specimen Blood Performing Organization Address [facility] Phone Number [facility] CLIA: [id number], [address] [place] [address] [address] POCT GLUCOSE (AUTOMATED) (04/13/2019 12:29 PM CDT) POCT GLU 66 (L) 70 - 110 mg/dL [facility] Specimen Blood Performing Organization Address [facility] Phone Number [facility] CLIA: [id number], [address] [place] [id number] [facility] [address] HEAD WO CONTRAST (04/13/2019 11:59 AM CDT) Specimen Narrative Performed At HISTORY: Subacute neuro deficit. PACS/VR/DOSE TECHNIQUE: Axial non contrast enhanced study is obtained. DOSE: Up-to-date CT equipment and radiation dose reduction techniques were employed. CTDIvol:38.51 mGy. DLP: 716 mGy-cm. FINDINGS:No acute intracranial hemorrhage, midline shift, pressure effect on the brain. No abnormal fluid collection detected in the extra-axial compartment. Ventricular system and cortical sulci are prominent, consistent with cerebral and cerebellar atrophy, slightly more affecting the frontal and temporal lobes. Calcifications noted in the basal ganglia region. Left maxillary sinus is more than 90% cloudy due to chronic sinusitis with probable superimposed mild acute left maxillary sinusitis suspected. Remaining paranasal sinuses are clear. Diffuse chronic left mastoiditis noted. CONCLUSION: No acute intracranial findings in non contrast enhanced CT scan of brain. Procedure Note [facility], Radiant Results Inft User - 04/13/2019 12:03 PM CDT HISTORY: Subacute neuro deficit. TECHNIQUE: Axial non contrast enhanced study is obtained. DOSE: Up-to-date CT equipment and radiation dose reduction techniques were employed. CTDIvol: 38.51 mGy. DLP: 716 mGy-cm. FINDINGS: No acute intracranial hemorrhage, midline shift, pressure effect on the brain. No abnormal fluid collection detected in the extra-axial compartment. Ventricular system and cortical sulci are prominent, consistent with cerebral and cerebellar atrophy, slightly more affecting the frontal and temporal lobes. Calcifications noted in the basal ganglia region. Left maxillary sinus is more than 90% cloudy due to chronic sinusitis with probable superimposed mild acute left maxillary sinusitis suspected. Remaining paranasal sinuses are clear. Diffuse chronic left mastoiditis noted. CONCLUSION: No acute intracranial findings in non contrast enhanced CT scan of brain. Performing Organization Address City/State/Zipcode Phone Number PACS/VR/DOSE URINALYSIS (04/13/2019 11:26 AM CDT) APPEARANCE Clear Clear [facility] COLOR Yellow (A) Colorless [facility] PH 6.0Comment: This is 4.8 - 8.0 [facility] a corrected result. HOSPITAL LABORATORY Previous result was 8.0 on 04/13/2019 at 1143 CDT SP GRAVITY 1.010 1.003 - 1.035 [facility] GLU U QUAL Negative Negative [facility] BLOOD Trace (A)Comment: Negative [facility] This is a corrected HOSPITAL LABORATORY result. Previous result was Negative on 04/13/2019 at 1143 CDT KETONES Negative Negative [facility] PROTEIN Negative Negative [facility] UROBILIN Normal Normal [facility] BILIRUBIN Negative Negative [facility] NITRITE Negative Negative [facility] LEUK SARAH Positive Negative [facility] (A)Comment: This is HOSPITAL LABORATORY a corrected result. Previous result was Negative on 04/13/2019 at 1143 CDT RBC/HPF 2 0 - 3 HPF [facility] WBC/HPF 5Comment: This is a 0 - 5 HPF [facility] corrected result. HOSPITAL LABORATORY Previous result was 1 HPF on 04/13/2019 at 1143 CDT BACTERIA Few (A) Negative [facility] WBC CLUMPS 3 (H) <=1 HPF [facility] YEAST BUD 3 (H) <=1 HPF [facility] YEAST HYPH 2 (H) <=1 HPF [facility] Specimen Urine - URINE, CATHETERIZED Performing Organization Address [facility] Phone Number [facility] CLIA: [id number], [address] [place], [place] [address] [address] FREE T4 (04/13/2019 10:46 AM CDT) FREE T4 0.95 0.78 - 2.20 ng/dL [facility] Specimen Blood - VENOUS Performing Organization Address [facility] Phone Number [facility] CLIA: [id number], [address] [place] [id number] FREE T3 (04/13/2019 10:46 AM CDT) FREE T3 1.73 (L) 2.77 - 5.27 pg/mL [facility] Specimen Blood - VENOUS Performing Organization Address [facility] Phone Number [facility] CLIA: [id number], [address] [place], [place] [address] [address] THYROID STIMULATING HORMONE (04/13/2019 10:46 AM CDT) TSH 4.31 0.45 - 4.70 mIU/L [facility] Specimen Blood - VENOUS Performing Organization Address City/State/Zipcode Phone Number [facility] CLIA: [id number], [address] [place] [address] CBC WITH DIFFERENTIAL (04/13/2019 10:46 AM CDT) WBC 13.17 (H) 4.30 - 11.10 [facility] 10*3/L [facility] RBC 3.01 (L) 3.93 - 5.25 [facility] 10*6/L [facility] HGB 10.2 (L) 11.6 - 15.0 [facility] g/dL [facility] HCT 29.4 (L) 35.7 - 45.2 % [facility] MCV 97.7 (H) 80.6 - 95.5 [facility] LABORATORY MCH 33.9 (H) 25.9 - 32.8 [facility] pg [facility] MCHC 34.7 31.6 - 35.1 [facility] g/dL [facility] RDW-SD 55.1 (H) 39.0 - 49.9 [facility] LABORATORY RDW-CV 15.7 (H) 12.0 - 15.5 % [facility] PLT 135 (L) 166 - 358 [facility] 10*3/L [facility] MPV 11.5 9.5 - 12.9 fL [facility] IPF % 3.8Comment: Platelet 1.3 - 7.7 % [facility] count measured by HOSPITAL fluorescence method. LABORATORY NRBC/100 WBC 0.5 0.0 - 10.0 [facility] /100 WBCs [facility] NRBC x10^3 0.07 10*3/L [facility] GRAN MAT (NEUT) % 61.8 % [facility] IMM GRAN % 1.20 % [facility] LYMPH % 22.2 % [facility] MONO % 14.4 % [facility] EOS % 0.2 % [facility] BASO % 0.2 % [facility] GRAN MAT 8.13 (H) 1.88 - 7.09 [facility] x10^3(ANC) 10*3/uL HOSPITAL LABORATORY IMM GRAN x10^3 0.16 (H) 0.00 - 0.06 [facility] 10*3/uL HOSPITAL LAB[facility]ORY LYMPH x10^3 2.93 1.32 - 3.29 [facility] 10*3/uL [facility]ITAL [facility] MONO x10^3 1.90 (H) 0.33 - 0.92 [facility] 10*3/uL [facility]PITAL [facility] EOS x10^3 0.03 0.03 - 0.39 [facility] 10*3/uL [facility]PITAL [facility] BASO x10^3 <0.03 0.01 - 0.07 [facility] 10*3/uL [facility] HYPERSEG NEUTS Present (A) (none) [facility] Specimen Blood - VENOUS Performing Organization Address [facility] Phone Number [facility] CLIA: [id number], [address] [place] [phone] TROPONIN I (04/13/2019 10:46 AM CDT) TROPONIN I 0.029 <=0.034 ng/mL [facility] Specimen Blood - VENOUS Narrative Performed At Equal or Less than 0.034 ng/ml---Normal [facility] Note: Cardiac troponin begins to rise 3-4 hours after the onset of ischemia. Repeat in 4-6 hours if the sample was drawn within 3-4 hours of the onset of the symptom and found normal. Between 0.035 and 0.120 ng/mL--- Borderline. Questionable myocardial injury or necrosis Note: Serial measurement may be necessary to confirm or exclude the diagnosis of myocardial injury or necrosis; Clinical correlation (symptoms, EKGs, imaging studies, and others) required; Repeat in 4-6 hours if clinically indicated. Equal or Higher than 0.121 ng/mL---Abnormal. Myocardial Injury or Necrosis Likely Biotin has been reported to cause a negative bias, interpret results relative to patient's use of biotin. Performing Organization Address [facility] Phone Number [facility] CLIA: [id number], [address] [place] [address] COMP. METABOLIC PANEL (02619) (04/13/2019 10:46 AM CDT) NA 137 135 - 145 [facility] mmol/L HOSPITAL LABORATORY K 4.8 3.5 - 5.0 [facility] mmol/L H[facility]ORY CL 108 98 - 108 mmol/L [facility] CO2 TOTAL 16 (L) 23 - 31 mmol/L [facility] AGAP 13 2 - 16 [facility] BUN 89 (H) 7 - 23 mg/dL [facility] GLUCOSE 76 70 - 110 mg/dL [facility] CREATININE 4.78 (H) 0.50 - 1.04 [facility] mg/dL [facility] TOTAL BILI 0.8 0.1 - 1.1 mg/dL [facility] CALCIUM 9.3 8.6 - 10.6 [facility] mg/dL [facility] T PROTEIN 6.3 6.3 - 8.2 g/dL [facility] ALBUMIN 3.1 (L) 3.5 - 5.0 g/dL [facility] ALK PHOS 52 34 - 122 U/L [facility] ALT(SGPT) 42 9 - 51 U/L [facility] AST(SGOT) 40 13 - 40 U/L [facility] eGFR Calculation 8.8 mL/min/1.73m2 [facility] [place] eGFR Calculation 10.7 mL/min/1.73m2 [facility] ([facility]) [facility] Specimen Blood - VENOUS Narrative Performed At Association of Glomerular Filtration Rate (GFR) [facility] and Staging of Kidney Disease* + + +- + | GFR (mL/min/1.73 m2)| With Kidney Damage|Without Kidney Damage + + +- + |>90| Stage one| Normal + + +- + |60-89|S tage two| Decreased GFR + + +- + |30-59|S tage three| Stage three + + +- + |15-29|S tage four | Stage four + + +- + |<15 (or dialysis)|Stage five | Stage five + + +- + *Each stage assumes the associated GFR level has been in effect for at least three months.Stages 1 to 5, with or without kidney disease, indicate chronic kidney disease. Notes: Determination of stages one and two (with eGFR >59mL/min/1.73 m2) requires estimation of kidney damage for at least three months as defined by structural or functional abnormalities of the kidney, manifested by either: Pathological abnormalities or Markers of kidney damage (including abnormalities in the composition of the blood or urine or abnormalities in imaging tests). Performing Organization Address [facility] Phone Number [facility] CLIA: [id number], [address] [place] [address] POCT GLUCOSE (AUTOMATED) (04/13/2019 10:37 AM CDT) POCT GLU 65 (L) 70 - 110 mg/dL [facility] Specimen Blood Performing Organization Address [facility] Phone Number [facility] CLIA: [id number], [address] [place] [address] XR CHEST 1 VW (04/13/2019 10:22 AM CDT) Specimen Narrative Performed At HISTORY: Syncope. PACS/VR/DOSE TECHNIQUE: Portable AP semierect view of the chest is obtained. FINDINGS: No acute pneumonia. No pneumothorax or pleural effusion or pulmonary congestion detected. Cardiac size is within normal limits. Thoracic aorta is elongated and slightly tortuous. CONCLUSIONS: No signs of acute cardiopulmonary disease. Procedure Note [facility], Radiant Results Inft User - 04/13/2019 10:30 AM CDT HISTORY: Syncope. TECHNIQUE: Portable AP semierect view of the chest is obtained. FINDINGS: No acute pneumonia. No pneumothorax or pleural effusion or pulmonary congestion detected. Cardiac size is within normal limits. Thoracic aorta is elongated and slightly tortuous. CONCLUSIONS: No signs of acute cardiopulmonary disease. Performing Organization Address [facility] Phone Number PACS/VR/DOSE documented in this encounter Visit Diagnoses Diagnosis Uremia - Primary Renal failure, unspecified Fatigue, unspecified type Dysphagia, unspecified type Bradycardia Other specified cardiac dysrhythmias Chronic kidney disease, unspecified CKD stage FIGUEROA (dyspnea on exertion) Other dyspnea and respiratory abnormality Unspecified acquired deformity of right upper arm Pain of upper abdomen Abdominal pain, other specified site Hematoma Contusion of unspecified site Seizures Other convulsions Melena Blood in stool Stupor Other alteration of consciousness Deep vein thrombosis (DVT) of upper extremity, unspecified chronicity, unspecified laterality, unspecified vein SOB (shortness of breath) Shortness of breath Uncontrolled hypertension Unspecified essential hypertension 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 Paroxysmal atrial fibrillation with RVR documented in this encounter Administered Medications Medication Order MAR Action Action Date Dose Rate Site acetaminophen (TYLENOL) tablet 650 mg 650 mg, Oral, Q6HPRN, Starting 05/15/19 at 1453, Until Discontinued, Routine , Temp > 37.8 C (100 F) bisacodyl (DULCOLAX) suppository 10 mg 10 mg, Rectal, QDAILYPRN, Starting Thu05/15/19 at 1453, Until Discontinued, Routine, Constipation calcitriol (ROCALTROL) capsule 0.5 mcg Given 05/16/2019 9:08 AM CDT 0.5 mcg 0.5 mcg, Oral, DAILY, First dose on Thu04/19/19 at 2015, Until Discontinued, Routine Given 05/15/2019 8:54 AM CDT 0.5 mcg Given 05/14/2019 9:04 AM CDT 0.5 mcg docusate (COLACE) capsule 100 mg Given 05/17/2019 7:53 PM CDT 100 mg 100 mg, Oral, BID, First dose on Thu04/13/19 at 2000, Until Discontinued, Routine Given 05/16/2019 9:07 PM CDT 100 mg Given 05/16/2019 9:08 AM CDT 100 mg esomeprazole (NEXIUM) 40 mg in NaCl 0.9% (NS) Given 05/17/2019 7:59 PM CDT 40 mg 100 mL MINI-BAG 40 mg, IV Piggyback, Q12H, First dose on 05/14/19 at 2115, Until Discontinued, 100 mL Given 05/17/2019 8:16 AM CDT 40 mg Given 05/16/2019 9:08 PM CDT 40 mg FENTanyl PF (SUBLIMAZE (PF)) injection Given 05/09/2019 7:11 PM CDT 25 mcg Slow IV Push, PRN, Starting 05/09/19 at 1809, Until Discontinued, Routine Given 05/09/2019 6:09 PM CDT 25 mcg foLIC acid (FOLATE) tablet 1 mg Given 05/15/2019 5:36 PM CDT 1 mg 1 mg, Oral, DAILY AT 1700, First dose on Thu04/17/19 at 1700, Until Discontinued, Routine Given 05/14/2019 6:24 PM CDT 1 mg Given 05/11/2019 5:34 PM CDT 1 mg glucagon (GLUCAGEN DIAGNOSTIC Given 04/20/2019 11:54 AM CDT 1 mg Right Deltoid-IM KIT) injection 1 mg 1 mg, Intramuscular, PRN, Starting Thu04/20/19 at 1146, Until Discontinued, HALI, Blood Glucose < or=70 mg/dL and patient is unable to swallow or has mental changes. hydrocortisone (CORTEF) tablet 10 mg Given 05/16/2019 9:10 AM CDT 10 mg 10 mg, Oral, QAM, First dose on Thu05/09/19 at 0900, Until Discontinued, Routine Given 05/14/2019 9:04 AM CDT 10 mg Given 05/10/2019 9:17 AM CDT 10 mg hydrocortisone (CORTEF) tablet 5 mg Given 05/15/2019 5:36 PM CDT 5 mg 5 mg, Oral, QPM, First dose on Thu05/09/19 at 1700, Until Discontinued, Routine Given 05/14/2019 10:37 PM CDT 5 mg Given 05/13/2019 9:17 PM CDT 5 mg magnesium oxide (MAG-OX 400) tablet 400 mg Given 05/17/2019 7:52 PM CDT 400 mg 400 mg, Oral, BID, First dose on Thu04/15/19 at 0945, Until Discontinued, Routine Given 05/16/2019 9:07 PM CDT 400 mg Given 05/16/2019 9:08 AM CDT 400 mg metoclopramide HCl (REGLAN) 5 mg in NaCl 0.9% (NS) piggyback 5 mg, IV Piggyback, TIDPRN MEALS, Starting 05/08/19 at 1511, Until Discontinued, 50 mL metoprolol tartrate (LOPRESSOR) tablet 25 mg Given 05/17/2019 7:53 PM CDT 25 mg 25 mg, Oral, BID, First dose on Thu05/12/19 at 2000, Until Discontinued, Routine Given 05/16/2019 9:07 PM CDT 25 mg Given 05/16/2019 9:08 AM CDT 25 mg midazolam (VERSED) injection Given 05/09/2019 7:11 PM CDT 0.5 mg IV Push, PRN, Starting Thu05/09/19 at 1809, Until Discontinued, Routine Given 05/09/2019 6:09 PM CDT 0.5 mg Polyethylene Glycol 3350 (MIRALAX) powder 17 g Given 05/17/2019 7:56 PM CDT 17 g 17 g, Oral, BID, First dose on 04/23/19 at 1215, Until Discontinued, Routine Given 05/16/2019 9:07 PM CDT 17 g Given 05/16/2019 9:09 AM CDT 17 g sennosides (SENOKOT) tablet 8.6 mg Given 05/17/2019 7:52 PM CDT 8.6 mg 8.6 mg, Oral, BID, First dose on 05/15/19 at 2000, Until Discontinued, Routine Given 05/16/2019 9:07 PM CDT 8.6 mg Given 05/16/2019 9:08 AM CDT 8.6 mg sucralfate (CARAFATE) 100 mg/mL suspension Given 05/17/2019 7:56 PM CDT 1, 000 mg 1,000 mg 1,000 mg (1 g), Oral, TID, First dose on 05/08/19 at 1400, Until Discontinued, Routine Given 05/16/2019 9:07 PM CDT 1,000 mg Given 05/16/2019 2:09 PM CDT 1,000 mg traMADOL (ULTRAM) tablet 50 mg Given 05/15/2019 10:16 PM CDT 50 mg 50 mg, Oral, BIDPRN, Starting Thu04/15/19 at 1806, Until Discontinued, Routine, Pain (scale 4-6) Given 05/02/2019 9:29 AM CDT 50 mg Given 05/01/2019 8:49 AM CDT 50 mg Medication Order MAR Action Action Date Dose Rate Site argatroban 250 mg in New Bag 04/20/2019 2:52 AM 2 mcg/kg/min 11.81 mL/hr NaCl 0.9% (NS) infusion CDT 2 mcg/kg/min 98.4 kg (11.808 mL/hr, rounded to 11.81 mL/hr), at 11.81 mL/hr, IV Infusion, CONTINUOUS, Starting Thu04/19/19 at 2345, Until Thu04/20/19 at 2018 cefTRIAXone (ROCEPHIN) 1,000 mg in NaCl Given 04/13/2019 2:25 PM CDT 1,000 mg 0.9% (NS) 50 mL MINI-BAG 1,000 mg, IV Piggyback, ONCE, 1 dose, Thu04/13/19 at 1515, 50 mL, Reason for Anti-Infective: Empiric Therapy for Suspected Infection, Empiric Therapy Site: Skin / Soft tissue, Duration of therapy: 72 hours, committee member approving Restricted medication: LANDONRAFAL colchicine (COLCRYS) tablet 0.6 mg Given 05/01/2019 2:03 AM CDT 0.6 mg 0.6 mg, Oral, ONCE, 1 dose, [place] 05/01/19 at 0300, Routine CVVHD fluid (ACCUSOL [id number]) dialysate New Bag 05/01/2019 1:52 AM CDT 3, 500 mL 3,500 mL 3,500 mL, [employer] Circuit, CONTINUOUS, Starting 04/30/19 at 1315, Until 05/02/19 at 1544, Routine New Bag 04/30/2019 9:00 PM CDT 3,500 mL D10W 0.45% NaCl (1/2NS) IV New Bag 04/13/2019 2:42 PM CDT 1,000 mL 10 mL/ hr infusion 1,000 mL, at 10 mL/hr, IV Infusion, CONTINUOUS, Starting Thu04/13/19 at 1545, Until Thu04/13/19 at 1740 D10W 10 % IV infusion New Bag 04/13/2019 5:44 PM CDT 30 mL/hr at 30 mL/hr, IV Infusion, CONTINUOUS, Starting Thu04/13/19 at 1715, Until Thu04/14/19 at 1919, Routine D10W 10 % IV infusion Rate Change 04/14/2019 9:55 PM CDT 20 mL/hr at 20 mL/hr, IV Infusion, CONTINUOUS, Starting Thu04/14/19 at 1930, Until Thu04/15/19 at 0736, Routine D10W 10 % IV infusion New Bag 04/16/2019 8:20 AM CDT 20 mL/hr at 20 mL/hr, IV Infusion, CONTINUOUS, Starting Thu04/15/19 at 1115, Until 04/16/19 at 1246, Routine Dose/Rate Verify 04/15/2019 8:02 PM CDT 20 mL/hr New Bag 04/15/2019 10:09 AM CDT 20 mL/hr D5W 0.45% NaCl (1/2NS) IV New Bag 04/13/2019 1:51 PM CDT 1,000 mL 90 mL/ hr infusion 1,000 mL at 90 mL/hr, 1,000 mL, IV Infusion, CONTINUOUS, Starting Thu04/13/19 at 1500, Until Thu04/13/19 at 1740, HALI dexamethasone (DECADRON PHOSPHATE) injection Given 04/13/2019 2:30 PM CDT 10 mg 10 mg 10 mg, IV Push, ONCE, 1 dose, Thu04/13/19 at 1515, STAT dextrose 10% (D10W) bolus infusion 250 mL Given 04/20/2019 12:40 PM CDT 250 mL 250 mL, IV Infusion, ONCE, Thu04/20/19 at 1300, For 1 dose, Dextrose 10% 250 mL bag contains: 10 te=100 mL 20 tu=883 mL 25 fj=321 mL (whole bag) The maximum rate at which dextrose can be infused without producing glycosuria is 0.5 g/kg/hour. BUD: If wrapper is open bag is good for 30 days at room temperature. , dextrose 50 % in water (D50W) injection 25 mL Given 04/13/2019 10:48 AM CDT 25 mL 25 mL, Slow IV Push, ONCE, 1 dose, Thu04/13/19 at 1200, STAT dextrose 50 % in water (D50W) injection 50 mL Given 04/13/2019 12:32 PM CDT 50 mL 50 mL, Intravenous, ONCE, 1 dose, Thu04/13/19 at 1345, STAT epoetin leoncio (EPOGEN) injection 8,000 Given 05/05/2019 7:40 PM CDT 8,000 Units Units 8,000 Units, Intravenous, DIALYSIS ONCE - [place] [facility], 1 dose, Elisha 05/05/19 at 1200, Routine, committee member approving Restricted medication: CRISPIN, MIKELRACHELE CLEMONSF epoetin leoncio (PROCRIT) Given 04/15/2019 2:48 PM CDT 10,000 Units Abdomen -SC injection 10,000 Units 10,000 Units, Subcutaneous, ONCE NOW, 1 dose, Thu04/15/19 at 1130, Routine, committee member approving Restricted medication: KELI NAPIER epoetin leoncio (PROCRIT) injection Given 04/23/2019 5:22 PM CDT 10,000 Units 10,000 Units 10,000 Units, Slow IV Push, DIALYSIS ONCE - [place] [facility], 1 dose, 04/23/19 at 1430, Routine, committee member approving Restricted medication: PRIYA PRIEST esomeprazole (NEXIUM) 40 mg in NaCl 0.9% (NS) Given 05/14/2019 9:03 AM CDT 40 mg IV piggyback 40 mg, IV Piggyback, Q12H, First dose on Thu05/06/19 at 2315, Until Discontinued, 100 mL Given 05/13/2019 9:17 PM CDT 40 mg Given 05/13/2019 8:18 AM CDT 40 mg esomeprazole (NEXIUM) 80 mg in New Bag 04/29/2019 12:28 PM CDT 8 mg/hr 10 mL/hr NaCl 0.9% (NS) 100 mL IV infusion Restarted 04/29/2019 9:08 AM CDT 8 mg/hr 10 mL/hr New Bag 04/28/2019 6:14 PM CDT 8 mg/hr 10 mL/hr esomeprazole (NEXIUM) 80 mg in New Bag 05/06/2019 8:48 PM CDT 8 mg/hr 10 mL/hr NaCl 0.9% (NS) 100 mL IV infusion esomeprazole (NEXIUM) 80 mg in NaCl 0.9% (NS) Given 04/28/2019 12:21 PM CDT 80 mg 100 mL IV Piggyback 80 mg, IV Piggyback, ONCE, 1 dose, [place]isha 04/28/19 at 1015, 100 mL FENTanyl PF (SUBLIMAZE (PF)) injection 25 Given 05/01/2019 12:51 AM CDT 25 mcg mcg 25 mcg, Slow IV Push, ONCE, 1 dose, [place] 05/01/19 at 0145, Routine furosemide (LASIX) injection 60 mg Given 04/14/2019 8:00 PM CDT 60 mg 60 mg, Slow IV Push, Q12H, First dose on Thu04/13/19 at 2000, Until Discontinued, Routine Given 04/14/2019 8:25 AM CDT 60 mg haloperidol lactate (HALDOL) Given 04/29/2019 2:09 AM CDT 1 mg Right Deltoid-IM injection 1 mg 1 mg, Intramuscular, ONCE, 1 dose, Thu04/29/19 at 0300, Routine haloperidol lactate (HALDOL) injection 2 mg Given 04/17/2019 1:16 AM CDT 2 mg 2 mg, Slow IV Push, ONCE, 1 dose, [place] 04/17/19 at 0215, Routine heparin 1,000 unit/mL injection 3,900 Given 04/28/2019 11:21 AM CDT 3,900 Units Units 3,900 Units, Slow IV Push, DIALYSIS ONCE - [place] 8D, 1 dose, Elisha 04/28/19 at 1130, Routine heparin 1,000 unit/mL injection 5,000 Given 04/14/2019 5:20 PM CDT 3,900 Units Units 5,000 Units, Slow IV Push, DIALYSIS ONCE - PT ROOM, 1 dose, [place]isha 04/14/19 at 1500, Routine heparin 1,000 unit/mL injection 5,000 Given 04/15/2019 6:20 PM CDT 3,900 Units Units 5,000 Units, Slow IV Push, DIALYSIS ONCE - PT ROOM, 1 dose, [facility] 04/15/19 at 1145, Routine heparin 1,000 unit/mL injection 5,000 Given 04/16/2019 8:17 PM CDT 3,900 Units Units 5,000 Units, Slow IV Push, DIALYSIS ONCE - [place] [facility], 1 dose, [facility] 04/16/19 at 1845, Routine heparin injection 5,000 Units Given 04/14/2019 10:07 PM CDT 5,000 Units Abdomen-SC 5,000 Units, Subcutaneous, Q12H, First dose on Thu04/13/19 at 2000, Until Discontinued, Routine Given 04/13/2019 9:08 PM CDT 5,000 Units Abdomen-SC heparin injection 5,000 Units Given 05/05/2019 7:57 PM CDT 5,000 Units Abdomen-SC 5,000 Units, Subcutaneous, Q12H, First dose on Thu05/03/19 at 2000, Until Discontinued, Routine Given 05/03/2019 7:56 PM CDT 5,000 Units Abdomen-SC HYDROcodone-acetaminophen (NORCO 5) 5-325 Given 05/01/2019 3:36 AM CDT 1 tablet mg tablet 1 tablet 1 tablet, Oral, ONCE, 1 dose, [place] 05/01/19 at 0400, Routine hydrocortisone (CORTEF) tablet 20 mg Given 05/04/2019 5:59 PM CDT 20 mg 20 mg, Oral, QPM, First dose on Thu05/04/19 at 1700, Until Discontinued, Routine hydrocortisone sod succ (CORTEF) 50 mg in Given 05/04/2019 5:25 AM CDT 50 mg NaCl 0.9% (NS) piggyback 50 mg, IV Piggyback, Q8H, First dose on Thu04/21/19 at 2200, Until Discontinued, 50 mL Given 05/04/2019 12:19 AM CDT 50 mg Given 05/03/2019 3:23 PM CDT 50 mg iohexol (OMNIPAQUE 300-100 mL) injection 200 Given 05/09/2019 8:00 PM CDT 200 mL mL 200 mL, Intravenous, ONCE, 1 dose, Thu05/09/19 at 2000, Routine iohexol (OMNIPAQUE 350 BULK-100 mL) injection Given 04/22/2019 10:51 AM CDT 80 mL 80 mL 80 mL, Intravenous, ONCE, 1 dose, Thu04/22/19 at 1100, Routine KCL (KLOR-CON M20) tablet 40 mEq Given 05/01/2019 4:55 AM CDT 40 mEq 40 mEq, Oral, ONCE, 1 dose, [place] 05/01/19 at 0530, Routine lidocaine 1% (PF) (XYLOCAINE) Given by Provider 04/29/2019 4:15 AM CDT 10 mL injection 10 mL 10 mL, Infiltration, ONCE, 1 dose, Thu04/29/19 at 0415, Routine lidocaine variable + sod bicarb Given by Provider 05/09/2019 6:12 PM 20 mL injection CDT Intradermal, ONCE, 1 dose, Thu05/09/19 at 1745, 20 mL methylPREDNISolone sod succ (SOLU-MEDROL Given 04/17/2019 8:25 AM CDT 20 mg (PF)) injection 20 mg 20 mg, Slow IV Push, BID, First dose on Thu04/13/19 at 2000, Until Discontinued, Routine Given 04/16/2019 8:49 PM CDT 20 mg Given 04/16/2019 8:21 AM CDT 20 mg metoprolol (LOPRESSOR) injection 5 mg Given 05/01/2019 3:37 AM CDT 5 mg 5 mg, Slow IV Push, ONCE, 1 dose, [place] 05/01/19 at 0445, STAT metoprolol tartrate (LOPRESSOR) tablet 25 mg Given 04/19/2019 1:28 AM CDT 25 mg 25 mg, Oral, Q8H, First dose on Thu04/18/19 at 1700, Until Discontinued, Routine Given 04/18/2019 5:18 PM CDT 25 mg metoprolol tartrate (LOPRESSOR) tablet 25 mg Given 04/27/2019 8:39 PM CDT 25 mg 25 mg, Oral, BID, First dose on Thu04/19/19 at 2000, Until Discontinued, Routine Given 04/26/2019 9:21 PM CDT 25 mg Given 04/26/2019 7:51 AM CDT 25 mg metoprolol tartrate (LOPRESSOR) tablet 25 mg Given 05/07/2019 11:07 PM CDT 25 mg 25 mg, Oral, BID, First dose on Thu05/01/19 at 0800, Until Discontinued, Routine Given 05/05/2019 7:48 PM CDT 25 mg Given 05/04/2019 9:14 PM CDT 25 mg multivitamin tablet 1 tablet Given 05/10/2019 9:17 AM CDT 1 tablet 1 tablet, Oral, DAILY, First dose on Thu04/16/19 at 0900, Until Discontinued, Routine Given 05/04/2019 10:03 AM CDT 1 tablet Given 05/03/2019 7:42 AM CDT 1 tablet NaCl 0.9% (NS) injection 10 mL Given 04/23/2019 7:53 PM CDT 10 mL 10 mL, Slow IV Push, DIALYSIS ONCE - [place] [facility], 1 dose, [facility] 04/23/19 at 1430, Routine NaCl 0.9% (NS) injection 10 mL Given 05/03/2019 3:23 PM CDT 10 mL 10 mL, Slow IV Push, DIALYSIS ONCE - [place] [facility], 1 dose, 05/03/19 at 1030, Routine NaCl 0.9% (NS) IV infusion 1,000 New Bag 04/14/2019 11:38 AM CDT 1,000 mL 42 mL/hr mL at 42 mL/hr, IV Infusion, CONTINUOUS, Starting Elisha 04/14/19 at 1145, Until Elisha 04/14/19 at 1919, Routine NaCl 0.9% (NS) IV infusion 500 mL New Bag 04/14/2019 11:45 AM CDT 500 mL 42 mL/hr at 42 mL/hr, IV Infusion, CONTINUOUS, Starting [place]isha 04/14/19 at 1145, Until Thu04/14/19 at 1919, Routine, DSU Pre-op NaCl 0.9% (NS) IV infusion New Bag 05/09/2019 6:25 PM CDT 250 mL/hr IV Infusion, at 250 mL/hr, ONCE, 1 dose, 05/09/19 at 1845, HALI octreotide (SANDOSTATIN) 1,250 New Bag 04/28/2019 6:12 PM CDT 50 mcg/hr 10 mL/hr mcg in NaCl 0.9% (NS) infusion 50 mcg/hr (10 mL/hr), IV Infusion, CONTINUOUS, Starting Thu04/28/19 at 1615, Until Thu04/28/19 at 1854 omeprazole (PRILOSEC) capsule 40 mg Given 05/05/2019 7:48 PM CDT 40 mg 40 mg, Oral, BID, First dose on Thu04/29/19 at 2000, Until Discontinued, Routine Given 05/04/2019 9:14 PM CDT 40 mg Given 05/04/2019 8:05 AM CDT 40 mg ondansetron (ZOFRAN (PF)) injection 4 mg Given 05/01/2019 6:07 AM CDT 4 mg 4 mg, Slow IV Push, Q6HPRN, Starting Thu04/13/19 at 1818, Until Thu05/08/19 at 1325, Routine, Nausea and Vomiting (N/V) pantoprazole (PROTONIX) 40 mg in NaCl 0.9% Given 04/18/2019 9:35 PM CDT 40 mg (NS) 100 mL MINI-BAG 40 mg, IV Piggyback, Q24H, First dose on Thu04/13/19 at 1930, Until Discontinued, 100 mL Given 04/17/2019 9:50 PM CDT 40 mg Given 04/16/2019 8:49 PM CDT 40 mg perflutren lipid microspheres (DEFINITY) Given 04/14/2019 10:00 AM CDT 2 mL injection 2 mL 2 mL, IV Push, ONCE, 1 dose, [facility] 04/14/19 at 1000, Routine perflutren protein-A microsphr (OPTISON) Given 05/09/2019 1:30 PM CDT 3 mL injection 3 mL 3 mL, IV Push, ONCE, 1 dose, [facility] 05/09/19 at 1330, Routine potassium acetate 40 mEq in NaCl 0.9% (NS) Given 05/01/2019 8:49 AM CDT 40 mEq piggyback 40 mEq, IV Piggyback, ONCE, 1 dose, [place] 05/01/19 at 0530, 100 mL predniSONE (DELTASONE) tablet 10 mg Given 04/20/2019 10:07 AM CDT 10 mg 10 mg, Oral, DAILY, First dose on 04/18/19 at 0900, Until Discontinued, Routine Given 04/19/2019 9:16 AM CDT 10 mg Given 04/18/2019 8:56 AM CDT 10 mg sodium citrate anticoagulant 4 Given by Provider 05/05/2019 8:30 AM CDT 4 mL gram /100 mL (4 %) injection 4 mL 4 mL, Catheter Dwell, DIALYSIS ONCE - [facility] [facility], 1 dose, [facility] 05/05/19 at 0830, Routine sodium citrate anticoagulant 4 gram /100 mL Given 04/20/2019 4:02 PM CDT 3.9 mL (4 %) injection 5 mL 5 mL, Catheter Dwell, ONCE, 1 dose, [facility] 04/20/19 at 1300, Routine sodium citrate anticoagulant 4 gram /100 mL (4 Given 04/21/2019 10:13 AM CDT 5 mL %) injection 5 mL 5 mL, Catheter Dwell, DIALYSIS ONCE - [facility] [facility], 1 dose, [facility] 04/21/19 at 0715, Routine sodium citrate anticoagulant 4 gram /100 mL Given 04/23/2019 7:52 PM CDT 3.9 mL (4 %) injection 5 mL 5 mL, Catheter Dwell, ONCE, 1 dose, 04/23/19 at 1745, Routine sodium citrate anticoagulant 4 gram /100 mL Given 05/03/2019 3:18 PM CDT 3.9 mL (4 %) injection 5 mL 5 mL, Catheter Dwell, DIALYSIS ONCE - [place] 8D, 1 dose, 05/03/19 at 1515, Routine documented in this encounter Insurance Payer Benefit Plan / Subscriber ID Effective Phone Address Type Group [facility] [id number] 2017-Pres Medicare HEALTHCARE - HEALTHCARE ent Adv HMO MANAGED DUAL COMPLETE MEDICARE HMO [facility] MEDICAID OF xxxxxxxxx 2019-Pres [phone] [place] ent [id number] [place] [address] documented as of this encounter
--- OUTSIDE RECORDS SUMMARY | 2019-06-04 22:38 | XMS REPORT | Summary of Care ---
:1940 Author Organization [facility] - Health Address [address] [place] [address] Care Team Providers Name Role Phone Sg Levy Primary Care Provider Ismael Napier DO Mix Crusher Operator Encounter Details Date Type Department Care Team Description 05/25/2019 Orders Only [facility] Doctor Unassigned, No [address] [facility] [place] [address] [address] [place] [address] Allergies Active Allergy Reactions Severity Noted Date Comments Heparin Other - See comments 05/06/2019 Bleeding documented as of this encounter (statuses as of 05/25/2019) Medications No known medicationsdocumented as of this encounter (statuses as of 05/25/2019) Active Problems Problem Noted Date Paroxysmal atrial fibrillation with RVR 04/19/2019 FIGUEROA (dyspnea on exertion) 04/16/2019 Bradycardia 04/16/2019 Uncontrolled hypertension 04/16/2019 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 04/16/2019 Uremia 04/13/2019 Melena 04/13/2019 Overview: Added automatically from request for surgery [id number] documented as of this encounter (statuses as of 05/25/2019) Social History Tobacco Use Types Packs/Day Years [...] of this encounter Last Filed Vital Signs Not on filedocumented in this encounter Plan of Treatment Health Maintenance Due Date Last Done Comments DTaP,Tdap,and Td Vaccines (1 - Tdap) 1959 Zoster Recombinant Vaccine (SHINGRIX) (1 of 2) 1990 Medicare Wellness Visit 2005 Osteoporosis Screening 2005 PNEUMOCOCCAL VACCINES 65+ (1 of 2 - PCV13) 2005 INFLUENZA VACCINE 06/19/2019 documented as of this encounter Implants Implanted Type Area Bias Cutter Helper Device Shelf Model / Identifier Expiration Serial / Date Lot Micronester COIL Right: [facility] 03/11/2024 [id number] / Implanted: Qty: 1 on 05/09/2019 by Chaparro Hernandez DO at [facility] Abdomen [id number] / [id number] Micronester COIL Right: [facility] 03/11/2024 [id number] / Implanted: Qty: 1 on 05/09/2019 by Chaparro Hernandez DO at [facility] Abdomen [id number] / [id number] Micronester COIL Right: [facility] 03/11/2024 [id number] / Implanted: Qty: 1 on 05/09/2019 by Chaparro Hernandez DO at [facility] Abdomen [id number] / [id number] Micronester COIL Right: [facility] 03/10/2024 [id number] / Implanted: Qty: 1 on 05/09/2019 by Chaparro Hernandez DO at [facility] Abdomen [id number] / [id number] Azur Peripheral Coil COIL Right: [employer] 11/18/2023 [id number] / Implanted: Qty: 1 on 05/09/2019 by Chaparro Hernandez DO at [facility] Abdomen [id number] / [id number] Azur Peripheral Coil COIL Right: [employer] 12/26/2023 [id number] / Implanted: Qty: 1 on 05/09/2019 by Chaparro Hernandez DO at [facility] Abdomen [id number] / [id number] Azur Peripheral Coil COIL Right: [employer] 01/17/2024 [id number] / Implanted: Qty: 1 on 05/09/2019 by Chaparro Hernandez DO at [facility] Abdomen [id number] / [id number] Azur Peripheral Coil COIL Right: Tero 06/18/2023 [id number] / Implanted: Qty: 1 on 05/09/2019 by Chaparro Hernandez DO at [facility] Abdomen [id number] / [id number] Micronester COIL Right: [facility] 12/10/2023 [id number] / Implanted: Qty: 1 on 05/09/2019 by Chaparro Hernandez DO at [facility] Abdomen [id number] / [id number] Micronester COIL Right: [facility] 02/19/2024 [id number] / Implanted: Qty: 1 on 05/09/2019 by Chaparro Hernandez DO at [facility] Abdomen [id number] / [id number] Micronester COIL Right: [facility] 03/10/2024 [id number] / Implanted: Qty: 1 on 05/09/2019 by Chaparro Hernandez DO at [facility] Abdomen [id number] / [id number] Micronester COIL Right: [facility] 03/11/2024 [id number] / Implanted: Qty: 1 on 05/09/2019 by Chaparro Hernandez DO at [facility] Abdomen [id number] / [id number] Micronester COIL Right: [facility] 02/19/2024 [id number] / Implanted: Qty: 1 on 05/09/2019 by Chaparro Hernandez DO at [facility] Abdomen [id number] / [id number] Micronester COIL Right: [facility] 03/11/2024 [id number] / Implanted: Qty: 1 on 05/09/2019 by Chaparro Hernandez DO at [facility] Abdomen [id number] / [id number] Micronester COIL Right: [facility] 03/11/2024 [id number] / Implanted: Qty: 1 on 05/09/2019 by Chaparro Hernandez DO at [facility] Abdomen [id number] / [id number] Catheter Hemosplit Hemodialysis Funnel Setter Dialysis 14.5fr 27cm [place] #[id number] - Sna Dialysis N/A: Chest Bard 10/18/2020 [id number] / Implanted: Qty: 1 on 04/14/2019 by Thuy Moore MD at [facility] Catheter NA / [id number] Angioseal Suture Right: [employer] 12/14/2019 [id number] / Implanted: Qty: 1 on 05/09/2019 by Chaparro Hernandez DO at [facility] Groin [id number] / [id number] documented as of this encounter Procedures Procedure Name Priority Date/Time Associated Diagnosis Comments DNR Routine 05/25/2019 12:01 AM CDT documented in this encounter Results Not on filedocumented in this encounter Insurance Payer Benefit Plan / Subscriber ID Effective Phone Address Type Group Dates [id number] 2017-Pres Medicare HEALTHCARE - HEALTHCARE ent Adv HMO MANAGED DUAL COMPLETE MEDICARE O [facility] MEDICAID OF xxxxxxxxx 2019-Pres [phone] [place] ent [id number] [place] [address] documented as of this encounter
--- NOTE | 2019-06-04 22:40 | ER ---
Nurse's Notes [facility] Name: Yanelis Hodge Age: 78 yrs Sex: Female : 1940 Arrival Date: 06/04/2019 Time: 22:26 Bed 3 Private MD: Diagnosis: Cardiac arrest Presentation: 06/04 22:20 Presenting complaint: EMS states: that they were toned for pt being unresponsive. Pt on hospice for kidney failure and has DNR. Respirations are shallow. pt has been like this all day. Transition of care: patient was not received from another setting of care. Onset of symptoms was June 04, 2019. Risk Assessment: Do you want to hurt yourself or someone else? Patient reports no desire to harm self or others. Initial Sepsis Screen: Does the patient meet any 2 criteria? HR > 90 bpm. Yes Does the patient have a suspected source of infection? No. Patient's initial sepsis screen is negative. Care prior to arrival: None. 22:20 Method Of Arrival: EMS: [facility] 22:20 Acuity: SAM 2 fc Historical: - Allergies: 22:46 No Known Allergies; fc - Home Meds: 22:46 Fentanyl Patch Topical [Active]; Morphine Oral [Active]; fc - PMHx: 22:46 CHF; Rheumatoid Arthritis; Hypertension; CAD; ESRD; Hospice for kidney failure; fc - PSHx: 22:46 right yobany cath; fc - Immunization history:: Last tetanus immunization: unknown. - Social history:: Smoking status: Patient/guardian denies using tobacco, Patient/guardian denies using alcohol, street drugs. - Ebola Screening: : Patient negative for fever greater than or equal to 101.5 degrees Fahrenheit, and additional compatible Ebola Virus Disease symptoms Patient denies exposure to infectious person Patient denies travel to an Ebola-affected area in the 21 days before illness onset. Screenin:20 Abuse screen: Denies threats or abuse. Nutritional screening: No deficits noted. Tuberculosis screening: No symptoms or risk factors identified. Fall Risk None identified. Assessment: 22:15 General: Appears distressed, Behavior is unresponsive. rv 22:15 Pain: Unable to use pain scale. Patient is unresponsive. Neuro: Level of Consciousness rv is unresponsive. Cardiovascular: Rhythm is sinus tachycardia. Respiratory: Respiratory effort is shallow, Respiratory pattern is Kussmaul. GI: No signs and/or symptoms were reported involving the gastrointestinal system. : No signs and/or symptoms were reported regarding the genitourinary system. : Chiang in place. EENT: No signs and/or symptoms were reported regarding the EENT system. Derm: Decubitus located on sacrum. Musculoskeletal: No signs and/or symptoms reported regarding the musculoskeletal system. 22:37 Reassessment: Pt's heart rate started to drop. Family at bedside along with Dr Cook. Family continues to state that they want nothing done. Pt's time of 2236. 22:41 Reassessment: [facility] hospice [phone] notified. They will have oncall nurse contact us. 22:57 Reassessment: Spoke with Adele (on-call nurse for hospice). She states that Dr jani Alvares will sign cert. She is also sending nurse out to speak with family. 23:15 Reassessment: Family has chosen [facility]. We will contact them to notify them of pts . 23:31 Reassessment: [facility] contacted -coordinator: Amie Hawkins case number : [id number]. 06/05 00:08 Reassessment: Hilary the nurse with [facility] hospice here at bedside to speak with family. 00:34 Reassessment: [facility] undertaker at facility for transport to home. ea Vital Signs: 06/04 22:20 BP 66 / 55; Pulse 123; Resp 14; Temp 97.5(A); Pulse Ox 89% on R/A; Weight 127.01 kg (R); Height 5 ft. 4 in. (162.56 cm) (R); Pain 0/10; 22:20 Body Mass Index 48.06 (127.01 kg, 162.56 cm) ED Course: 22:20 Arm band placed on Patient placed in an exam room, on a stretcher. 22:20 Patient has correct armband on for positive identification. Bed in low position. Call light in reach. Side rails up X2. clinical informatics physician on. Pulse ox on. NIBP on. 22:20 No provider procedures requiring assistance completed. 22:26 Patient arrived in ED. am2 22:33 Triage completed. 22:38 Mane Cook MD is Attending Physician. tw4 22:39 Mane Cook MD is Pronouncing Provider. tw4 23:18 Tyson Talavera, MARY GRACE is Primary Nurse. rv Administered Medications: No medications were administered Outcome: : Condition: rv 06/05 00:42 Patient : Time of 22:37 Pronounced by Mane Cook MD Body to [facility]a home. 00:42 Patient left the ED. ea Signatures: Staci Montgomery RN RN Rebecca Murcia RN RN ak1 Marisol Skaggs am2 Karen Nolasco RN RN Mane Cook MD MD 4 Tyson Talavera, MARY GRACE RN rv
--- NOTE | 2019-06-06 00:58 | EDPHYS ---
Physician Documentation [facility] Name: Yanelis Hodge Age: 78 yrs Sex: Female : 1940 Arrival Date: 06/04/2019 Time: 22:26 Bed 3 Private MD: ED Physician Mane Cook HPI: 06/05 04:27 This 78 yrs old Black Female presents to ER via EMS with complaints of Unresponsive. tw4 04:27 The patient presents with decreased mental status, decreased responsiveness. Onset: The tw4 symptoms/episode began/occurred today. Possible causes: unknown. Associated signs and symptoms: Pertinent positives: shortness of breath. Current symptoms: In the emergency department the patient's symptoms are unchanged from the initial presentation. The patient has not experienced similar symptoms in the past. Historical: - Allergies: 06/04 22:46 No Known Allergies; fc - Home Meds: 22:46 Fentanyl Patch Topical [Active]; Morphine Oral [Active]; fc - PMHx: 22:46 CHF; Rheumatoid Arthritis; Hypertension; CAD; ESRD; Hospice for kidney failure; fc - PSHx: 22:46 right yobany cath; fc - Immunization history:: Last tetanus immunization: unknown. - Social history:: Smoking status: Patient/guardian denies using tobacco, Patient/guardian denies using alcohol, street drugs. - Ebola Screening: : Patient negative for fever greater than or equal to 101.5 degrees Fahrenheit, and additional compatible Ebola Virus Disease symptoms Patient denies exposure to infectious person Patient denies travel to an Ebola-affected area in the 21 days before illness onset. ROS: 06/05 04:27 Constitutional: Negative for fever, chills, and weight loss, Cardiovascular: Negative tw4 for chest pain, palpitations, and edema. MS/Extremity: Negative for injury and deformity, Skin: Negative for injury, rash, and discoloration, Neuro: Negative for headache, weakness, numbness, tingling, and seizure. Respiratory: Positive for shortness of breath. Exam: 04:27 Head/Face: Normocephalic, atraumatic. Chest/axilla: Normal chest wall appearance and tw4 motion. Nontender with no deformity. No lesions are appreciated. 04:27 Constitutional: The patient appears comatose, diaphoretic, emaciated, frail, in obvious distress, severely distressed. 04:27 Cardiovascular: Pulses: thready. 04:27 Respiratory: Respirations: shallow respirations, that is moderate, Breath sounds: rhonchi, are scattered. 04:27 Neuro: Mentation: unable to test, the patient is comatose. Vital Signs: 06/04 22:20 BP 66 / 55; Pulse 123; Resp 14; Temp 97.5(A); Pulse Ox 89% on R/A; Weight 127.01 kg (R); Height 5 ft. 4 in. (162.56 cm) (R); Pain 0/10; 22:20 Body Mass Index 48.06 (127.01 kg, 162.56 cm) MDM: 22:38 Patient medically screened. tw4 Administered Medications: No medications were administered Disposition: Patient pronounced on 06/04/19 22:37 by Mane Cook. Impression: Cardiac arrest. - Released to Home. Signatures: Staci Montgomery RN MARY GRACE Karen Nolasco RN Mane Mi ea, MD MD tw4 Corrections: (The following items were deleted from the chart) 06/05 00:42 06/04 22:39 06/04/2019 22:39 Patient pronounced on 06/04/2019 at 22:37 by karen Cook. Impression: Cardiac arrest. Released to Home. tw4
== END 2019-06-05 00:42 | disposition expired ==
LOC: ER 22:24
DX: I46.9 Cardiac arrest, cause unspecified (principal); I10 Essential (primary) hypertension; I13.2 Hypertensive heart and chronic kidney disease with heart failure and with stage 5 chronic kidney disease, or end stage renal disease; N18.6 End stage renal disease; I50.9 Heart failure, unspecified
CPT/HCPCS: 99284